=== PATIENT | female | born 1960 | race Caucasian/White ===

== ENCOUNTER 2018-11-25 19:16 | Inpatient (IN) | payer OTHER ==
[2018-11-25] MEDS ORDERED: Sodium Chloride 0.9% 1,000 ML IV STA (20:22)
[2018-11-25] MEDS ORDERED: Albuterol-Ipratrop 3 mg / 0.5 (3 ml) UD INH STA (20:30)
[2018-11-25] MEDS ORDERED: Magnesium Sulfate 2 gm/50 ml 2 GM/50 ML BAG IV STA (20:30)
[2018-11-25] MEDS ORDERED: Albuterol-Ipratrop 3 mg / 0.5 (3 ml) UD ONE (20:58)
[2018-11-25] MEDS ORDERED: Magnesium Sulfate 2 gm/50 ml 2 GM/50 ML BAG ONE (20:58)
[2018-11-25 21:09] LABS: VENOUS BLOOD GAS PCO2 67 mmHg (40-60); VENOUS BLOOD GAS PO2 32 mm/Hg (30-55); VENOUS BLOOD PH 7.27 (7.32-7.43)
[2018-11-25] MEDS ORDERED: Azithromycin 500 MG in Sodium Chloride 0.9% 250 ML IVPB STA (21:20)
[2018-11-25] MEDS ORDERED: cefTRIAXone (Rocephin) 1 gm Inj ONE (21:31)
[2018-11-25 21:36] LABS: BASO % 0.2 % (0.0-2.0); HEMOGLOBIN 14.6 g/dL (12.0-16.0); LYMPH # 0.6 K/uL (1.0-4.3); LYMPH % 6.9 % (20.0-40.0); MEAN CELL VOLUME 96.7 fl (81.0-99.0); MEAN CORPUSCULAR HEMOGLOBIN 31.2 pg (27.0-31.0); MEAN CORPUSCULAR HGB CONC 32.3 g/dL (33.0-37.0); MEAN PLATELET VOLUME 9.3 fl (7.2-11.7); MONO # 0.6 K/uL (0.0-0.8); MONO % 7.6 % (0.0-10.0); NEUT # 7.3 K/uL (1.8-7.0); NEUT % 85.3 % (50.0-75.0); NRBC % 0.2 % (0.0-0.0); PLATELET COUNT 197 K/uL (130-400); RBC 4.69 Mil/uL (3.80-5.20); RED CELL DISTRIBUTION WIDTH 15.3 % (11.5-14.5); WHITE BLOOD COUNT 8.5 K/uL (4.8-10.8)
[2018-11-25 22:06] LABS: BLOOD UREA NITROGEN 14 mg/dl (7-17); CALCIUM 8.7 mg/dL (8.4-10.2); GFR NON-AFRICAN AMERICAN > 60
[2018-11-25 22:09] LABS: INR 2.5; PROTHROMBIN TIME 28.9 Seconds (9.8-13.1)
[2018-11-25 22:11] LABS: PARTIAL THROMBOPLASTIN TIME 46.1 Seconds (25.6-37.1)
[2018-11-25 22:15] LABS: ALB/GLOB RATIO 0.9 (1.0-2.1); ALBUMIN 4.2 g/dL (3.5-5.0); ALT/SGPT < 6 U/L (9-52); AST/SGOT 59 U/L (14-36)
--- NOTE | 2018-11-25 22:18 | ED PDOC ---
HPI: SOB/CHF/COPD Time Seen by Provider: 11/25/18 20:19 Chief Complaint (Nursing): Shortness Of Breath Chief Complaint (Provider): Shortness Of Breath History Per: Patient History/Exam Limitations: clinical condition Onset/Duration Of Symptoms: Days (x2 days) Current Symptoms Are (Timing): Still Present Associated Symptoms: Fever, Chills, Productive Cough Additional Complaint(s): Bety Solis is a 58 year old Persian female with a history of morbid obesity, vascular heart disease, HTN, possible COPD, and aortic valve replacement, presents with x2 days of fever, cough and shortness of breath. Patient reports that the symptoms got worse today prompting her to come to ED. She states her cough is productive with white phlegm, associated with fever and chills. Patient is taking Nyquil but has had no relief. PMD: Willie Oliveira [id number] Administrator: Alhaji Calvo V Past Medical History Reviewed: Historical Data, Nursing Documentation, Vital Signs Vital Signs: Last Vital Signs Temp 103.0 F H 11/25/18 20:03 Pulse 118 H 11/25/18 21:41 Resp 24 11/25/18 21:41 BP 138/65 11/25/18 21:41 Pulse Ox 100 11/25/18 21:41 - Medical History PMH: COPD (possible), HTN Other PMH: vascular heart disease; - Surgical History Other surgeries: gastric band; aortic valve replacement - Family History Family History: States: Unknown Family Hx - Social History Current smoker - smoking cessation education provided: Yes (x2 packs a day) - Home Medications Home Medications: Ambulatory Orders Medication Instructions Recorded Atorvastatin [Lipitor] 40 mg PO DAILY 11/25/18 Metoprolol Succinate [Toprol Xl] 50 mg PO DAILY 11/25/18 RX: Aspirin [Lo-Dose Aspirin EC] 1 tab PO DAILY 11/25/18 RX: Warfarin Sodium [Jantoven] 1 tab PO DAILY 11/25/18 - Allergies Allergies/Adverse Reactions: Allergies Allergy/AdvReac Type Severity Reaction Status Date / Time No Known Allergies Allergy Verified 11/25/18 20:03 Review of Systems ROS Statement: Except As Marked, All Systems Reviewed And Found Negative Constitutional: Positive for: Fever, Chills Respiratory: Positive for: Cough, Shortness of Breath, Other (white phlegm) Physical Exam - Reviewed Nursing Documentation Reviewed: Yes Vital Signs Reviewed: Yes - Physical Exam Appears: Positive for: Non-toxic, No Acute Distress Head Exam: Positive for: ATRAUMATIC, NORMOCEPHALIC Skin: Positive for: Normal Color, Warm, Dry Eye Exam: Positive for: EOMI, PERRL ENT: Positive for: Normal ENT Inspection Neck: Positive for: Normal, Painless ROM, Supple Cardiovascular/Chest: Positive for: JVD, Tachycardia Respiratory: Positive for: Rales (bilateral), Respiratory Distress (moderate respiratory distress), Other (intercostal retraction) Gastrointestinal/Abdominal: Positive for: Normal Exam, Soft. Negative for: Tenderness Back: Positive for: Normal Inspection. Negative for: L CVA Tenderness, R CVA Tenderness, Vertebral Tenderness Extremity: Positive for: Normal ROM. Negative for: Pedal Edema, Deformity, Swelling - Laboratory Results Result Diagrams: 11/25/18 21:00 11/25/18 21:40 Lab Results: pO2 32 mm/Hg (30-55) 11/25/18 20:59 VBG pH 7.27 (7.32-7.43) L 11/25/18 20:59 VBG pCO2 67 mmHg (40-60) H* 11/25/18 20:59 VBG HCO3 25.2 mmol/L 11/25/18 20:59 VBG Total CO2 32.9 mmol/L (22-28) H 11/25/18 20:59 VBG O2 Sat (Calc) 54.5 % (40-65) 11/25/18 20:59 VBG Base Excess 2.0 mmol/L (0.0-2.0) 11/25/18 20:59 VBG Potassium 4.4 mmol/L (3.6-5.2) 11/25/18 20:59 Sodium 136.0 mmol/L (132-148) 11/25/18 20:59 Chloride 102.0 mmol/L (98-107) 11/25/18 20:59 Glucose 113 mg/dL (65-105) H 11/25/18 20:59 Lactate 2.2 mmol/L (0.7-2.1) H 11/25/18 20:59 FiO2 32.0 % 11/25/18 20:59 Crit Value Called To nery Evans md 11/25/18 20:59 Crit Value Called By Denae aguilar 11/25/18 20:59 Crit Value Read Back Y 11/25/18 20:59 Blood Gas Notified Time 210811/25/18 20:59 PT 28.9 Seconds (9.8-13.1) H 11/25/18 21:55 INR 2.5 11/25/18 21:55 APTT 46.1 Seconds (25.6-37.1) H 11/25/18 21:55 - ECG O2 Sat by Pulse Oximetry: 100 (RA) Pulse Ox Interpretation: Normal - Critical Care Total Time (In Min): 60 Medical Decision Making Medical Decision Making: Time: 2020 Impression: 58 year old ugandan female with respiratory failure in setting of flu like symptoms as well as clinical CHF and COPD Plan: --EKG --VBG shock panel --CMP --Lact acid --B-type natriuretic peptide --Troponin I --Cbc with differential --PTT --PT --Influenza A B --Urinalysis --Chest x-ray --Tylenol 975 mg PO --Duoneb 9 ml INH --Magnesium sulfate 2 gm in 50 ml IV --Solu-medrol 125 mg IVP --Sodium chloride 1,000 ml --Tamiflu Cap 75 mg PO --Rocephin 1gm IV daily --Azithromycin 500MG/250ML NS --IV insertion --BIPAP procedure --Peak flow pre/post treatment 23:39 Labs reviewed significant for pro BNP as well as troponin. Patient is also flu positive. Patient shows improvement on BIPAP. Aspirin, Lovenox, and NTG ordered. Patient's CXR demonstrates bilateral infiltrate and pulmonary vascular congestion. Will treat for pneumonia and sepsis in setting of flu. Patient's c ase discussed with Dr. Cornejo and Dr. Smith. Patient diagnosis is NSTEMI vs Myocarditis, CHF, respiratory failure, pneumonia, influenza, and sepsis. Condition is guarded. Patient will be admitted to ICU. Scribe Attestation: Documented by Link Curry, acting as a scribe for Nery Carter MD. Provider Scribe Attestation: All medical record entries made by the Scribe were at my direction and personally dictated by me. I have reviewed the chart and agree that the record accurately reflects my personal performance of the history, physical exam, medical decision making, and the department course for this patient. I have also personally directed, reviewed, and agree with the discharge instructions and disposition. Disposition - Clinical Impression Clinical Impression: NSTEMI (non-ST elevated myocardial infarction), CHF exacerbation, History of aortic valve replacement, Respiratory distress - Patient ED Disposition Is Patient to be Admitted: Yes - Disposition Disposition Time: 23:39 Condition: GUARDED
[2018-11-25] MEDS ORDERED: Nitroglycerin 2% 15 INCH/30 GM TUBE TOP STA (22:24)
[2018-11-25] MEDS ORDERED: Enoxaparin 80 mg Syringe SC STA (22:24)
[2018-11-25 22:26] LABS: TROPONIN I 0.52 ng/mL (0.00-0.120)
[2018-11-25] MEDS ORDERED: Albuterol-Ipratrop 3 mg / 0.5 (3 ml) UD INH PRN (22:26)
[2018-11-25] MEDS ORDERED: Nitroglycerin 2% Ointment Foilpak UD TOP ONE (22:29)
[2018-11-25] MEDS ORDERED: Nitroglycerin 2% Ointment Foilpak UD TOP STA (22:35)
[2018-11-25] MEDS ORDERED: Enoxaparin 120 mg Syringe SC STA (22:41)
[2018-11-25 22:48] LABS: BANDS 2 % (0-2); LYMPHOCYTE 6 % (20-50); MONOCYTE 8 % (0-10); MYELOCYTE 1 % (0-0); NEUTROPHIL 83 % (42-75); TOTAL CELLS COUNTED 100
[2018-11-25 22:49] LABS: ANISOCYTOSIS SLIGHT; PLATELET ESTIMATE NORMAL (NORMAL)
--- NOTE | 2018-11-25 23:40 | CP.PCM.CON ---
History of Present Illness - History of Present Illness History of Present Illness: CC/Reason for ICU: Respiratory failure HPI: This is a 58 y/o female with MHx sig for morbid obesity, AVR (on coumadin), CHF, CAD, HTN and possible COPD who comes in with 2 days of fever (measured up to 103 in ER), cough with clear sputum and SOB. Per son, symptoms got significantly worse today, prompting her to come in. Patient/family denies n/v/d. Denies chest pain/pressure. Patient has tried OTC medications with minimal relief. Patient not able to provide much other history given her current difficulty breathing. ROS: Patient unable MHx: Morbid obesity, AVR (on coumadin), CHF, CAD, HTN and possible COPD SHx: Gastric bypass, AVR Allergies: NKDA Medications: per med rec; on coumadin Social Hx: Lives at home, 2 PPM smoker currently, 1-2 PPD for many years, no EtOH Family Hx: Patient unable to provide at this time Surrogate Dec Mkr: Son, Tanisha, contact info on chart Past Patient History - Past Social History Smoking Status: Heavy Smoker > 10 Cigarettes Daily - CARDIAC Hx Hypertension: Yes - PULMONARY Hx Chronic Obstructive Pulmonary Disease (COPD): Yes (possible) - PSYCHIATRIC Hx Substance Use: No - SURGICAL HISTORY Hx Gastric Bypass Surgery: Yes Hx Valve Replacement: Yes Meds Allergies/Adverse Reactions: Allergies Allergy/AdvReac Type Severity Reaction Status Date / Time No Known Allergies Allergy Verified 11/25/18 20:03 - Medications Medications: Current Medications Acetaminophen (Tylenol 325mg Tab) 650 mg PO Q6H PRN PRN Reason: Pain (1-10) Acetaminophen (Tylenol 325mg Tab) 650 mg PO Q6H PRN PRN Reason: Fever >100.4 F Albuterol/Ipratropium (Duoneb 3 Mg/0.5 Mg (3 Ml) Ud) 3 ml INH RQ6 PRN PRN Reason: Shortness of Breath Albuterol/Ipratropium (Duoneb 3 Mg/0.5 Mg (3 Ml) Ud) 3 ml INH RQID PINKY Aspirin (Ecotrin) 325 mg PO DAILY [facility] Atorvastatin Calcium (Lipitor) 40 mg PO DAILY [facility] Enoxaparin Sodium (Lovenox) 120 mg SC Q12H PINKY; Protocol Furosemide (Lasix) 40 mg IVP DAILY IPNKY Azithromycin 500 mg/ Sodium (Chloride) 250 mls @ 250 mls/hr IVPB DAILY PINKY; Protocol Ceftriaxone Sodium 1 gm/ (Sodium Chloride) 100 mls @ 100 mls/hr IVPB DAILY PINKY; Protocol Metoprolol Succinate (Toprol Xl) 50 mg PO DAILY PINK[facility] Oseltamivir Phosphate (Tamiflu Cap) 75 mg PO DAILY PINKY; Protocol Pantoprazole Sodium (Protonix Ec Tab) 40 mg PO DAILY PINKY Physical Exam - Constitutional Appears: No Acute Distress - Head Exam Head Exam: ATRAUMATIC, NORMOCEPHALIC - Eye Exam Eye Exam: EOMI, PERRL - ENT Exam ENT Exam: Mucous Membranes Moist - Neck Exam Neck exam: Positive for: Full Rom - Respiratory Exam Respiratory Exam: Rhonchi, Wheezes - Cardiovascular Exam Cardiovascular Exam: Tachycardia, +S1, +S2 Additional comments: distant heart sounds, difficult to discern valve - GI/Abdominal Exam GI & Abdominal Exam: Normal Bowel Sounds, Soft - Extremities Exam Extremities exam: Positive for: full ROM, pedal edema - Neurological Exam Neurological exam: Alert, Oriented x3 Additional comments: Patient awake and rousable, but limited exam due to being on Bipap and SOB - Skin Skin Exam: Dry, Warm Results - Vital Signs Recent Vital Signs: Last Vital Signs Temp 100.8 F H 11/25/18 22:00 Pulse 106 H 11/25/18 22:37 Resp 30 H 11/25/18 22:38 BP 136/65 11/25/18 23:36 Pulse Ox 100 11/25/18 22:37 - Labs Result Diagrams: 11/25/18 21:00 11/25/18 21:40 Labs: Laboratory Results - last 24 hr 11/25/18 11/25/18 11/25/18 20:59 21:00 21:00 WBC 8.5 RBC 4.69 Hgb 14.6 Hct 45.4 MCV 96.7 MCH 31.2 H MCHC 32.3 L RDW 15.3 H Plt Count 197 MPV 9.3 Neut % (Auto) 85.3 H Lymph % (Auto) 6.9 L [place] % (Auto) 7.6 Eos % (Auto) 0.0 Baso % (Auto) 0.2 Neut # (Auto) 7.3 H Lymph # (Auto) 0.6 L [place] # (Auto) 0.6 Eos # (Auto) 0.0 Baso # (Auto) 0.0 Neutrophils % (Manual) 83 H Band Neutrophils % 2 Lymphocytes % (Manual) 6 L Monocytes % (Manual) 8 Myelocytes % 1 H Platelet Estimate Normal Anisocytosis (manual) Slight PT INR APTT pO2 32 VBG pH 7.27 L VBG pCO2 67 H* VBG HCO3 25.2 VBG Total CO2 32.9 H VBG O2 Sat (Calc) 54.5 VBG Base Excess 2.0 VBG Potassium 4.4 Sodium 136.0 Chloride 102.0 Glucose 113 H Lactate 2.2 H FiO2 32.0 Crit Value Called To nery Evans md Crit Value Called By Denae aguilar Crit Value Read Back Y Blood Gas Notified Time 2108 Potassium Carbon Dioxide Anion Gap BUN Creatinine Est GFR ( Amer) Est GFR (Non-Af Amer) Random Glucose Calcium Total Bilirubin AST ALT Alkaline Phosphatase Troponin I NT-Pro-B Natriuret Pep Total Protein Albumin Globulin Albumin/Globulin Ratio Venous Blood Potassium 4.4 Influenza Typ A,B (EIA) Pos for influenza a H 11/25/18 11/25/18 11/25/18 21:40 21:55 21:55 WBC RBC Hgb Hct MCV MCH MCHC RDW Plt Count MPV Neut % (Auto) Lymph % (Auto) [place] % (Auto) Eos % (Auto) Baso % (Auto) Neut # (Auto) Lymph # (Auto) [place] # (Auto) Eos # (Auto) Baso # (Auto) Neutrophils % (Manual) Band Neutrophils % Lymphocytes % (Manual) Monocytes % (Manual) Myelocytes % Platelet Estimate Anisocytosis (manual) PT 28.9 H INR 2.5 APTT 46.1 H pO2 VBG pH VBG pCO2 VBG HCO3 VBG Total CO2 VBG O2 Sat (Calc) VBG Base Excess VBG Potassium Sodium 137 Chloride 98 Glucose Lactate FiO2 Crit Value Called To Crit Value Called By Crit Value Read Back Blood Gas Notified Time Potassium 5.1 H Carbon Dioxide 27 Anion Gap 17 BUN 14 Creatinine 0.6 L Est GFR ( Amer) > 60 Est GFR (Non-Af Amer) > 60 Random Glucose 110 H Calcium 8.7 Total Bilirubin 1.3 AST 59 H ALT < 6 L Alkaline Phosphatase 105 Troponin I 0.5200 H* NT-Pro-B Natriuret Pep 1840 H Total Protein 8.7 H Albumin 4.2 Globulin 4.5 H Albumin/Globulin Ratio 0.9 L Venous Blood Potassium Influenza Typ A,B (EIA) - EKG Data EKG Interpreted by: Myself Rate: Tachycardia - EKG Data EKG comments: difficult to discern P waves, appears regular - Imaging and Cardiology Chest x-ray Status: Image reviewed by me (Vol o/l, infiltrate) Assessment & Plan (1) NSTEMI (non-ST elevated myocardial infarction) Assessment and Plan: 58 y/o female with multiple medical conditions being admited with acute hypoxic respiratory failure in setting CHF, possible COPD, CAP, and NSTEMI. -Admit ICU -Serial troponins, EKG in AM; Echo in AM -ASA 325; cont statin and b-jose roberto; patient is on 1 mg/kg SQ lovenox q12h for subtx (<=2.5) INR -Will need cardiology consult in AM -Lasix 40 mg IV daily for CHF -Duonebs, azithromycin/ceftriaxone for PNA/COPD; continue coverage with Tamiflu -On Lovenox 1 mg/kg BID Status: Acute (2) CHF exacerbation Status: Acute (3) CAP (community acquired pneumonia) Status: Acute (4) History of aortic valve replacement Status: Acute (5) DVT prophylaxis Status: Acute
[2018-11-26 05:29] LABS: ABG ALLEN TEST YES; ARTERIAL BLOOD GAS HCO3 25.2 mmol/L (21-28); ARTERIAL BLOOD GAS HEMOGLOBIN 14.5 g/dL (11.7-17.4); ARTERIAL BLOOD GAS O2 CAPACITY 19.6 mL/dL (16-24); ARTERIAL BLOOD GAS O2 CONTENT 18.2 ML/dL (15-23); ARTERIAL BLOOD GAS O2 SAT 92.9 % (95-98); ARTERIAL BLOOD GAS PCO2 88 mm/Hg (35-45); ARTERIAL BLOOD GAS PH 7.17 (7.35-7.45); ARTERIAL BLOOD GAS PO2 63 mm/Hg (80-100); ARTERIAL BLOOD GAS TCO2 34.8 mmol/L (22-28)
[2018-11-26 05:53] LABS: HEMOGLOBIN 14.3 g/dL (12.0-16.0); MEAN CELL VOLUME 95.7 fl (81.0-99.0); MEAN CORPUSCULAR HEMOGLOBIN 31.6 pg (27.0-31.0); RBC 4.52 Mil/uL (3.80-5.20); WHITE BLOOD COUNT 6.5 K/uL (4.8-10.8)
[2018-11-26 05:58] LABS: INR 2.5; PROTHROMBIN TIME 28.9 Seconds (9.8-13.1)
[2018-11-26 06:32] LABS: BLOOD UREA NITROGEN 15 mg/dl (7-17); CALCIUM 8.2 mg/dL (8.4-10.2); GFR NON-AFRICAN AMERICAN > 60
--- NOTE | 2018-11-26 06:37 | CARD ---
APPROVED REPORT Date of service: 11/25/2018 EKG Measurement Heart [id number] <Conclusion> Sinus tachycardia Low voltage QRS Cannot rule out Anteroseptal infarct, age undetermined Abnormal ECG
[2018-11-26 06:51] LABS: ABG ALLEN TEST YES; ARTERIAL BLOOD GAS HCO3 25.8 mmol/L (21-28); ARTERIAL BLOOD GAS HEMOGLOBIN 14.3 g/dL (11.7-17.4); ARTERIAL BLOOD GAS O2 CAPACITY 19.5 mL/dL (16-24); ARTERIAL BLOOD GAS O2 CONTENT 19.5 ML/dL (15-23); ARTERIAL BLOOD GAS PCO2 90 mm/Hg (35-45); ARTERIAL BLOOD GAS PH 7.17 (7.35-7.45); ARTERIAL BLOOD GAS PO2 135 mm/Hg (80-100); ARTERIAL BLOOD GAS TCO2 35.6 mmol/L (22-28)
[2018-11-26] MEDS ORDERED: PROPOFOL ONE (07:09)
[2018-11-26 07:11] LABS: SQUAMOUS EPITHIAL 1 /hpf (0-5); URINE BILIRUBIN NEGATIVE (NEGATIVE); URINE BLOOD LARGE (NEGATIVE); URINE CLARITY SLIGHTY-CLOUDY (Clear); URINE COLOR STRAW (YELLOW); URINE GLUCOSE (UA) NEG (NEGATIVE); URINE LEUKOCYTE ESTERASE NEG Leu/uL (Negative); URINE PROTEIN NEGATIVE (NEGATIVE); URINE UROBILINOGEN 0.2-1.0 mg/dL (0.2-1.0)
[2018-11-26] MEDS ORDERED: Propofol 10 mg/ml Inj (20 ML) IV ONE (07:16)
--- NOTE | 2018-11-26 07:29 | PCM.ANES ---
Anesthesia Emergent Intubation - Diagnosis Working Diagnosis:: Hypercarbic respiratory failure - Consult Reason for Consult:: Emergency intubation - Intubation Attempts Previous Number of Intubation Attempts:: 0 - Pre-Intubation Vital Signs Blood Pressure: 137/78 Heart Rate: 97 Respiratory Rate: 16 O2 Sat: 91 FIO2: 100 Oxygen Delivery Method: BiPAP Level Of Consciousness: Drowsy, Lethargic Intubation Meds Given: Propofol - Airway Management Oropharyngeal Area Suctioned: Yes PreOxygenation: 100 Inhalation: No Rapid Sequence: No Cricoid Pressure: No Possible Aspiration: No - Method of Intubation Intubation Method: Oral ETT ETT Size: 7.5 Lipline@: 23 Easy: Yes Atramatic: Yes - Intubation Devices Damaris Blade Size Used: 3 Brian Forcepts Used: No Clymer Scope Used: No Fiber Optic Scope: No - Placement Confirmation Breath Sounds Present & Equal Bilaterally: Yes Gurgling Sounds Not Audible at Epigastrum: Yes Positive EtCO2: Yes Portable CXR: Yes (ordered by primary team) Recommendations: Ventilator, Chest X Ray, ABG - Post-Intubation Vital Signs Blood Pressure: 140/80 Heart Rate: 93 Respiratory Rate: 16 O2 Sat: 97 FIO2: 100
[2018-11-26] MEDS: Propofol 10 mg/ml 1,000 MG/100 ML VIAL IV SCH ×5 (07:30→20:47)
[2018-11-26] MEDS ORDERED: Albuterol-Ipratrop 3 mg / 0.5 (3 ml) UD INH SCH (08:00)
--- NOTE | 2018-11-26 08:09 | RAD ---
Date of service: 11/26/2018 HISTORY: intubation COMPARISON: 11/25/2018 FINDINGS: LUNGS: The pulmonary venous congestion and the left mid lung zone airspace opacity a re-noted. Currently the left mid lung zone opacity is more conspicuous-denser and interval less dense airspace opacity in the right upper lobe-is also noted. The endotracheal tube tip is at the entrance for/orifice of the right mainstem bronchus prior to starting this dictation this finding was called up to the ICU floor and directly discussed with the nurse, Octavia who is taking care this patient at approximately 8 o'clock a.m. on 11/26/2018 PLEURA: Costophrenic angles are clipped bilaterally impeding assessment for any small pleural effusions. No large pleural effusions are suggested. No pneumothorax noted. CARDIOVASCULAR: There is presence of aortic atherosclerotic calcification on x-ray. Cardiomegaly present and similar midline sternal wires present grossly intact. Pulmonary venous congestion present and probably slightly increased. OSSEOUS STRUCTURES: No significant abnormalities. VISUALIZED UPPER ABDOMEN: Midline sternotomy. OTHER FINDINGS: None. IMPRESSION: Endotracheal tube tip at orifice to right mainstem bronchus-recommend retraction of 2 to 3 cm-this was called up to the ICU and directly discussed with Octavia the nurse taking care the patient prior to this dictation. Cardiomegaly and pulmonary venous congestion-additional areas of confluent airspace opacity compatible with either infiltrates and/or coalescent areas of focal pulmonary edema. Other findings as above.
--- NOTE | 2018-11-26 08:35 | RAD ---
Date of service: 11/25/2018 HISTORY: chest pain COMPARISON: 06/14/2014 FINDINGS: LUNGS: Lung volumes within normal limits. Pulmonary venous congestion diffusely increased since prior exam. Additional patchy ill-defined airspace opacities suggested left mid lung zone and left lung base. Areas of coalescent pulmonary edema here with or without infiltrates are considerations. Diffuse interstitial pulmonary edema suspect. PLEURA: No significant pleural effusion identified, no pneumothorax apparent. CARDIOVASCULAR: There is presence of aortic atherosclerotic calcification on x-ray. Cardiomegaly-similar interval increased pulmonary venous congestion Midline sternotomy OSSEOUS STRUCTURES: Midline sternotomy. VISUALIZED UPPER ABDOMEN: Normal. OTHER FINDINGS: None. IMPRESSION: Interval increased pulmonary venous congestion. Additional interval faint patchy left basal opacity now present and left mid lung zone patchy opacity. These opacities are compatible with areas of greater focal pulmonary edema and/or infiltrates. Previously more denser opacity was perceived also in the left mid lung zone but slightly more inferior and left lateral position. Other findings as above.
[2018-11-26] MEDS ORDERED: Aspirin 325 mg EC Tablets PO SCH (09:00)
[2018-11-26] MEDS ORDERED: methylPREDNISolone 60 MG in Sodium Chloride 0.9% 50 ML IV SCH (09:00)
[2018-11-26 09:37] LABS: ABG ALLEN TEST YES; ARTERIAL BLOOD GAS HCO3 26.7 mmol/L (21-28); ARTERIAL BLOOD GAS HEMOGLOBIN 14.8 g/dL (11.7-17.4); ARTERIAL BLOOD GAS O2 CAPACITY 20.7 mL/dL (16-24); ARTERIAL BLOOD GAS O2 CONTENT 20.7 ML/dL (15-23); ARTERIAL BLOOD GAS O2 SAT 100.2 % (95-98); ARTERIAL BLOOD GAS PCO2 83 mm/Hg (35-45); ARTERIAL BLOOD GAS PH 7.21 (7.35-7.45); ARTERIAL BLOOD GAS PO2 249 mm/Hg (80-100); ARTERIAL BLOOD GAS TCO2 35.7 mmol/L (22-28)
[2018-11-26] MEDS ORDERED: Influenza Vaccine (5 YR UP)/PF 60 MCG/0.5 ML SYR IM ONE (10:00)
[2018-11-26] MEDS ORDERED: Pneumococcal 23-Valent Vaccine IM ONE (10:00)
--- NOTE | 2018-11-26 10:34 | CP.PCM.CON ---
History of Present Illness - History of Present Illness History of Present Illness: Asked to evaluate this 58 year old female cigarette smoker who was orally intubated and placed on mechanical ventilator earlier this morning. She presented to the emergency room with a 2 days history of fevers, cough and shortness of breath. The EMR is used to gather all information. Her cough was productive of whitish mucoid sputum and she was having chills at home as well. There was no history of chest pain or hemoptysis at home. Her chest x-ray on presentation was limited by body habitus, but did show apparent hazy/patchy infi ltrates in the lower lobes of both lungs. She did have fever of 103 degrees in the ER and was influenza A positive without leukocytosis. Chest x-ray post intubation shows improved aeration with patchy infiltrates present in the right upper lobe and left lower lobe. Arterial blood gas showed respiratory acidosis with hyper-oxygenation on mechanical support with 100% oxygen. Ventilator changes have been made by the slots manager present in the ICU. Past Patient History - Past Medical History & Family History Past Medical History?: Yes - Past Social History Smoking Status: Heavy Smoker > 10 Cigarettes Daily - CARDIAC Hx Congestive Heart Failure: Yes Hx Hypertension: Yes Other/Comment: AVR - PULMONARY Hx Chronic Obstructive Pulmonary Disease (COPD): Yes (possible) - NEUROLOGICAL Hx Neurological Disorder: No - HEENT Hx HEENT Problems: No - RENAL Hx Chronic Kidney Disease: No - ENDOCRINE/METABOLIC Hx Endocrine Disorders: No - HEMATOLOGICAL/ONCOLOGICAL Hx Blood Disorders: No Hx Human Immunodeficiency Virus (HIV): No - INTEGUMENTARY Hx Dermatological Problems: No - MUSCULOSKELETAL/RHEUMATOLOGICAL Hx Falls: No - GASTROINTESTINAL Hx Gastrointestinal Disorders: No Other/Comment: gastric bypass-gastric band. >morbid obesity - GENITOURINARY/GYNECOLOGICAL Hx Genitourinary Disorders: No - PSYCHIATRIC Hx Substance Use: No - SURGICAL HISTORY Hx Gastric Bypass Surgery: Yes Hx Valve Replacement: Yes (aortic) - ANESTHESIA Hx Anesthesia: Yes Hx Anesthesia Reactions: No Hx Malignant Hyperthermia: No Has any member of the family had a problem w/ anesthesia?: No Meds Allergies/Adverse Reactions: Allergies Allergy/AdvReac Type Severity Reaction Status Date / Time No Known Allergies Allergy Verified 11/25/18 20:03 - Medications Medications: Current Medications Acetaminophen (Tylenol 325mg Tab) 650 mg PO Q6H PRN PRN Reason: Pain (1-10) Acetaminophen (Tylenol 325mg Tab) 650 mg PO Q6H PRN PRN Reason: Fever >100.4 F Albuterol/Ipratropium (Duoneb 3 Mg/0.5 Mg (3 Ml) Ud) 3 ml INH RQ6 PRN PRN Reason: Shortness of Breath Albuterol/Ipratropium (Duoneb 3 Mg/0.5 Mg (3 Ml) Ud) 3 ml INH RQID PINKY Aspirin (Ecotrin) 325 mg PO DAILY PINKY Atorvastatin Calcium (Lipitor) 40 mg PO DAILY PINKY Enoxaparin Sodium (Lovenox) 120 mg SC Q12H PINKY; Protocol Furosemide (Lasix) 40 mg IVP DAILY PINKY Azithromycin 500 mg/ Sodium (Chloride) 250 mls @ 250 mls/hr IVPB DAILY PINKY; Protocol Ceftriaxone Sodium 1 gm/ (Sodium Chloride) 100 mls @ 100 mls/hr IVPB DAILY PINKY; Protocol Propofol (Diprivan) 1,000 mg in 100 mls @ 3.946 mls/hr IV .Q24H PINKY; Protocol Stop: 11/27/18 07:16 Last Admin: 11/26/18 09:50 Dose: 40 mcg/kg/min, 31.57 mls/hr Metoprolol Succinate (Toprol Xl) 50 mg PO DAILY PINKY Oseltamivir Phosphate (Tamiflu Cap) 75 mg PO DAILY PINKY; Protocol Pantoprazole Sodium (Protonix Ec Tab) 40 mg PO DAILY PIKNY Physical Exam - Additional Findings Additional findings: Obese female, orally intubated and mechanically ventilated. Not following any commands, spontaneously moving all extremities. Neck is supple and trachea is midline. No dependant edema of lower extremities, no cyanosis. All extremities are warm to touch, pulses are well felt. No dullness on palpation of the anterior chest wall. No subcut emphysema. Peak airways pressure 38cm, plateau pressure 36cm. Breath sounds diminished, but equally heard in both lungs. Inspiratory and expiratory wheezes and rhonchi are heard throughout both lungs. Unable to appreciate rales or bronchial breath sounds. Heart sounds are distant and difficult to hear. Abdomen is markedly obese with positive bowel sounds. Results - Vital Signs Recent Vital Signs: Last Vital Signs Temp 98.5 F 11/26/18 08:00 Pulse 82 11/26/18 08:00 Resp 12 11/26/18 08:00 BP 122/69 11/26/18 08:00 Pulse Ox 100 11/26/18 08:00 - Labs Result Diagrams: 11/27/18 04:40 11/27/18 04:40 Labs: Laboratory Results - last 24 hr 11/25/18 11/25/18 11/25/18 20:59 21:00 21:00 WBC 8.5 RBC 4.69 Hgb 14.6 Hct 45.4 MCV 96.7 MCH 31.2 H MCHC 32.3 L RDW 15.3 H Plt Count 197 MPV 9.3 Neut % (Auto) 85.3 H Lymph % (Auto) 6.9 L [place] % (Auto) 7.6 Eos % (Auto) 0.0 Baso % (Auto) 0.2 Neut # (Auto) 7.3 H Lymph # (Auto) 0.6 L [place] # (Auto) 0.6 Eos # (Auto) 0.0 Baso # (Auto) 0.0 Neutrophils % (Manual) 83 H Band Neutrophils % 2 Lymphocytes % (Manual) 6 L Monocytes % (Manual) 8 Myelocytes % 1 H Platelet Estimate Normal Anisocytosis (manual) Slight PT INR APTT pCO2 pO2 32 HCO3 ABG pH ABG Total CO2 ABG O2 Saturation ABG O2 Content ABG Base Excess ABG Hemoglobin ABG Carboxyhemoglobin POC ABG HHb (Measured) ABG Methemoglobin ABG O2 Capacity Juanito Test VBG pH 7.27 L VBG pCO2 67 H* VBG HCO3 25.2 VBG Total CO2 32.9 H VBG O2 Sat (Calc) 54.5 VBG Base Excess 2.0 VBG Potassium 4.4 A-a O2 Difference Hgb O2 Saturation Sodium 136.0 Chloride 102.0 Glucose 113 H Lactate 2.2 H Vent Mode Mechanical Rate FiO2 32.0 Inspiratory BiPAP Expiratory BiPAP Crit Value Called To nery Evans md Crit Value Called By [facility] Crit Value Read Back Y Blood Gas Notified Time 2108 Potassium Carbon Dioxide Anion Gap BUN Creatinine Est GFR ( Amer) Est GFR (Non-Af Amer) Random Glucose Lactic Acid Calcium Total Bilirubin AST ALT Alkaline Phosphatase Troponin I NT-Pro-B Natriuret Pep Total Protein Albumin Globulin Albumin/Globulin Ratio Venous Blood Potassium 4.4 Urine Color Urine Clarity Urine pH Ur Specific [place] Urine Protein Urine Glucose (UA) Urine Ketones Urine Blood Urine Nitrate Urine Bilirubin Urine Urobilinogen Ur Leukocyte Esterase Urine RBC (Auto) Urine Microscopic WBC Ur Squamous Epith Cells Influenza Typ A,B (EIA) Pos for influenza a H 11/25/18 11/25/18 11/25/18 21:40 21:55 21:55 WBC RBC Hgb Hct MCV MCH MCHC RDW Plt Count MPV Neut % (Auto) Lymph % (Auto) [place] % (Auto) Eos % (Auto) Baso % (Auto) Neut # (Auto) Lymph # (Auto) [place] # (Auto) Eos # (Auto) Baso # (Auto) Neutrophils % (Manual) Band Neutrophils % Lymphocytes % (Manual) Monocytes % (Manual) Myelocytes % Platelet Estimate Anisocytosis (manual) PT 28.9 H INR 2.5 APTT 46.1 H pCO2 pO2 HCO3 ABG pH ABG Total CO2 ABG O2 Saturation ABG O2 Content ABG Base Excess ABG Hemoglobin ABG Carboxyhemoglobin POC ABG HHb (Measured) ABG Methemoglobin ABG O2 Capacity Juanito Test VBG pH VBG pCO2 VBG HCO3 VBG Total CO2 VBG O2 Sat (Calc) VBG Base Excess VBG Potassium A-a O2 Difference Hgb O2 Saturation Sodium 137 Chloride 98 Glucose Lactate Vent Mode Mechanical Rate FiO2 Inspiratory BiPAP Expiratory BiPAP Crit Value Called To Crit Value Called By Crit Value Read Back Blood Gas Notified Time Potassium 5.1 H Carbon Dioxide 27 Anion Gap 17 BUN 14 Creatinine 0.6 L Est GFR ( Amer) > 60 Est GFR (Non-Af Amer) > 60 Random Glucose 110 H Lactic Acid Calcium 8.7 Total Bilirubin 1.3 AST 59 H ALT < 6 L Alkaline Phosphatase 105 Troponin I 0.5200 H* NT-Pro-B Natriuret Pep 1840 H Total Protein 8.7 H Albumin 4.2 Globulin 4.5 H Albumin/Globulin Ratio 0.9 L Venous Blood Potassium Urine Color Urine Clarity Urine pH Ur Specific [place] Urine Protein Urine Glucose (UA) Urine Ketones Urine Blood Urine Nitrate Urine Bilirubin Urine Urobilinogen Ur Leukocyte Esterase Urine RBC (Auto) Urine Microscopic WBC Ur Squamous Epith Cells Influenza Typ A,B (EIA) 11/26/18 11/26/18 11/26/18 04:55 04:55 04:55 WBC RBC Hgb Hct MCV MCH MCHC RDW Plt Count MPV Neut % (Auto) Lymph % (Auto) [place] % (Auto) Eos % (Auto) Baso % (Auto) Neut # (Auto) Lymph # (Auto) [place] # (Auto) Eos # (Auto) Baso # (Auto) Neutrophils % (Manual) Band Neutrophils % Lymphocytes % (Manual) Monocytes % (Manual) Myelocytes % Platelet Estimate Anisocytosis (manual) PT 28.9 H INR 2.5 APTT pCO2 pO2 HCO3 ABG pH ABG Total CO2 ABG O2 Saturation ABG O2 Content ABG Base Excess ABG Hemoglobin ABG Carboxyhemoglobin POC ABG HHb (Measured) ABG Methemoglobin ABG O2 Capacity Juanito Test VBG pH VBG pCO2 VBG HCO3 VBG Total CO2 VBG O2 Sat (Calc) VBG Base Excess VBG Potassium A-a O2 Difference Hgb O2 Saturation Sodium 136 Chloride 99 Glucose Lactate Vent Mode Mechanical Rate FiO2 Inspiratory BiPAP Expiratory BiPAP Crit Value Called To Crit Value Called By Crit Value Read Back Blood Gas Notified Time Potassium 3.9 Carbon Dioxide 32 H Anion Gap 9 L BUN 15 Creatinine 0.8 Est GFR ( Amer) > 60 Est GFR (Non-Af Amer) > 60 Random Glucose 149 H Lactic Acid 0.8 Calcium 8.2 L Total Bilirubin AST ALT Alkaline Phosphatase Troponin I 2.7900 H* NT-Pro-B Natriuret Pep Total Protein Albumin Globulin Albumin/Globulin Ratio Venous Blood Potassium Urine Color Urine Clarity Urine pH Ur Specific [place] Urine Protein Urine Glucose (UA) Urine Ketones Urine Blood Urine Nitrate Urine Bilirubin Urine Urobilinogen Ur Leukocyte Esterase Urine RBC (Auto) Urine Microscopic WBC Ur Squamous Epith Cells Influenza Typ A,B (EIA) 11/26/18 11/26/18 11/26/18 05:21 05:36 06:44 WBC 6.5 RBC 4.52 Hgb 14.3 Hct 43.2 MCV 95.7 MCH 31.6 H MCHC 33.0 RDW 15.0 H Plt Count 153 MPV Neut % (Auto) Lymph % (Auto) [place] % (Auto) Eos % (Auto) Baso % (Auto) Neut # (Auto) Lymph # (Auto) [place] # (Auto) Eos # (Auto) Baso # (Auto) Neutrophils % (Manual) Band Neutrophils % Lymphocytes % (Manual) Monocytes % (Manual) Myelocytes % Platelet Estimate Anisocytosis (manual) PT INR APTT pCO2 88 H* 90 H* pO2 63 L 135 H HCO3 25.2 25.8 ABG pH 7.17 L* 7.17 L* ABG Total CO2 34.8 H 35.6 H ABG O2 Saturation 92.9 L 100.0 H ABG O2 Content 18.2 19.5 ABG Base Excess 0.6 1.2 ABG Hemoglobin 14.5 14.3 ABG Carboxyhemoglobin 2.7 H 2.5 H POC ABG HHb (Measured) 6.8 H 0.0 ABG Methemoglobin 1.2 1.3 ABG O2 Capacity 19.6 19.5 Juanito Test Yes Yes VBG pH VBG pCO2 VBG HCO3 VBG Total CO2 VBG O2 Sat (Calc) VBG Base Excess VBG Potassium A-a O2 Difference 184.0 323.0 Hgb O2 Saturation 89.3 L 96.1 Sodium Chloride Glucose Lactate Vent Mode Vm Bipap Mechanical Rate 14 FiO2 50.0 80.0 Inspiratory BiPAP 12 Expiratory BiPAP 6 Crit Value Called To Clotilde medel md Crit Value Called By 333 333 Crit Value Read Back Y Y Blood Gas Notified Time 528 651 Potassium Carbon Dioxide Anion Gap BUN Creatinine Est GFR ( Amer) Est GFR (Non-Af Amer) Random Glucose Lactic Acid Calcium Total Bilirubin AST ALT Alkaline Phosphatase Troponin I NT-Pro-B Natriuret Pep Total Protein Albumin Globulin Albumin/Globulin Ratio Venous Blood Potassium Urine Color Urine Clarity Urine pH Ur Specific [place] Urine Protein Urine Glucose (UA) Urine Ketones Urine Blood Urine Nitrate Urine Bilirubin Urine Urobilinogen Ur Leukocyte Esterase Urine RBC (Auto) Urine Microscopic WBC Ur Squamous Epith Cells Influenza Typ A,B (EIA) 11/26/18 11/26/18 06:45 09:30 WBC RBC Hgb Hct MCV MCH MCHC RDW Plt Count MPV Neut % (Auto) Lymph % (Auto) [place] % (Auto) Eos % (Auto) Baso % (Auto) Neut # (Auto) Lymph # (Auto) [place] # (Auto) Eos # (Auto) Baso # (Auto) Neutrophils % (Manual) Band Neutrophils % Lymphocytes % (Manual) Monocytes % (Manual) Myelocytes % Platelet Estimate Anisocytosis (manual) PT INR APTT pCO2 83 H* pO2 249 H HCO3 26.7 ABG pH 7.21 L ABG Total CO2 35.7 H ABG O2 Saturation 100.2 H ABG O2 Content 20.7 ABG Base Excess 2.3 ABG Hemoglobin 14.8 ABG Carboxyhemoglobin 2.0 H POC ABG HHb (Measured) -0.2 L ABG Methemoglobin 1.3 ABG O2 Capacity 20.7 Juanito Test Yes VBG pH VBG pCO2 VBG HCO3 VBG Total CO2 VBG O2 Sat (Calc) VBG Base Excess VBG Potassium A-a O2 Difference 360.0 Hgb O2 Saturation 97.0 Sodium Chloride Glucose Lactate Vent Mode Mechanical Rate FiO2 100.0 Inspiratory BiPAP Expiratory BiPAP Crit Value Called To Dr. cong morgan Crit Value Called By 23 Crit Value Read Back Y Blood Gas Notified Time 935 Potassium Carbon Dioxide Anion Gap BUN Creatinine Est GFR ( Amer) Est GFR (Non-Af Amer) Random Glucose Lactic Acid Calcium Total Bilirubin AST ALT Alkaline Phosphatase Troponin I NT-Pro-B Natriuret Pep Total Protein Albumin Globulin Albumin/Globulin Ratio Venous Blood Potassium Urine Color Straw Urine Clarity Slighty-cloudy Urine pH 5.0 Ur Specific [place] < 1.005 Urine Protein Negative Urine Glucose (UA) Neg Urine Ketones Negative Urine Blood Large Urine Nitrate Negative Urine Bilirubin Negative Urine Urobilinogen 0.2-1.0 Ur Leukocyte Esterase Neg Urine RBC (Auto) 2 Urine Microscopic WBC 1 Ur Squamous Epith Cells 1 Influenza Typ A,B (EIA) Assessment & Plan (1) Respiratory failure with hypoxia and hypercapnia Status: Acute Priority: High (2) Influenza A Status: Acute Priority: High (3) Pneumonia and influenza Status: Acute Priority: High (4) Morbid obesity Status: Chronic Priority: High (5) COPD (chronic obstructive pulmonary disease) Status: Suspected Priority: High - Assessment and Plan (Free Text) Plan: Clinical and radiographic findings have been reviewed and discussed with the slots manager. Ventilator changes will be made based on current clinical situation. Monitor chest x-ray daily while intubated. Suction sputum for culture and sensitivity to micro lab. Agree with present medical management. - Date & Time Date: 11/26/18 Time: 10:53
[2018-11-26] MEDS ORDERED: Chlorhexidine Gluconate 1 APPL/PKT TP ONE (10:49)
--- NOTE | 2018-11-26 11:12 | CP.CCUPN ---
CCU Subjective - Physician Review Subjective (Free Text): Recent events reviewed and discussed with overnight Precipitator Supervisor, PMD and Pulm: required MV support, intubated by Anesthesiologist for lethargy and hypercarbia in the presence of new NSTEMI. Presently sedated on Propofol and morphine. Breathing 18 on AC mode, rate adjusted to 22 to help ventilate CO2 as per recent ABG showing PCO2 level of 83 from 90. Duonebs ordered Q4H for now and IV steroids ongoing. Afebrile, no fever spikes overnight, SBP 130s HR 80s Soo2 99% on 50% (reduced from 100% oxygen post intubation). ROS: No other pertinent negs or positives on 10+ system review- unobtainable due to sedation PMSFH: All other Nursing and physician documentation reviewed to date; no new pertinent info noted relevant to current medical problems. EXAM- HEENT: no icterus, no gaze preference NECK: No JVD visible given short neck and overall obesity, supple, carotids equal upstroke bilat/no bruit CHEST: decreased BS at the bases, especially R base; few wheezes audible bilaterally. HEART: regular, distant, S1S2, no rubs or murmurs noted ABD: soft and obese, nontender, no guarding, no organomegaly, BS hypoactive. EXT: no leg edema, no calf tenderness or palpable cords, distal pulses intact and symmetrical. NEURO: sedated, + tone in all extremities. SKIN: no rashes, warm and dry LABS: WBC= 6.5 HGB= 14.3 PLTs= 153K INR = 2.5 7.21/83/249 post intubation. Na= 136 K= 3.9 CL= 99 HCO3= 32 BUN/Cr= 15/0.8 BS= 149 CXR: (my interp)- ETT low near tomas, pulm vasc congestion pattern, possible basilar infiltrates too (my interp). EKG: sinus 96/min, ST changes in II, III, F, and poor R progression anteriorly (my interp). IMPRESSION / MAJOR PROBLEMS NOW: 1. Acute hypercarbic resp failure 2 COPD Exacerbation, NSTEMI with Acute Pulm Edema 2. Influenza Viral resp infection, r/o superimposed bilateral bacterial PNA 3. s/p AVR on warfarin 4. Morbid obesity PLAN: 1. MV support, watch for post hypercapneic resp alkalosis, sputum Cx, serial ABGs, ETT re-positioned, sedation to prevent self-extubation. Empiric abx and antiviral coverage started in ER. 2. Lovenox Q12H, ASA, Statin, BBs via NGT/OGT, ECHO; Cardio eval for appropriateness of coronary imaging. 3. Duonebs Q4h, IV steroids. CT chest if basilar interstitial findings do not resolve after attempts at diuresis. 4. Nicotine patch 5. Maintain full AC with warfarin, INR goal 3.0. 6. Needs PICC line access. Time spent with this patient did not overlap with any other provider's medical or critical care time. Additionally the code selected for the services rendered in this note includes the time spent: talking to the patients family, associated physicians and reviewing hospital data/results not listed here which extended to a total of 40 minutes of critical care.
--- NOTE | 2018-11-26 11:22 | CP.PCM.HP ---
History of Present Illness - History of Present Illness History of Present Illness: Patient is a 58 year old female with a history of morbid obesity, vascular heart disease, HTN, possible COPD, and aortic valve replacement, presents with x2 days of fever, cough and shortness of breath still smoke 2 packs per day. In ER she presented with severe SOB not controlled with the support of the Bipap and elevated troponin levels. She was admitted in ICU and eventually she was intubated. At present sedated on ventilator support. The severity of her condition was discussed with the family and the avionics mechanic. Present on Admission - Present on Admission Any Indicators Present on Admission: No Review of Systems - Review of Systems Systems not reviewed;Unavailable: Intubated - Constitutional Constitutional: As Per HPI - EENT Eyes: As Per HPI - Cardiovascular Cardiovascular: As Per HPI - Respiratory Respiratory: As Per HPI - Gastrointestinal Gastrointestinal: As Per HPI - Musculoskeletal Musculoskeletal: As Per HPI - Integumentary Integumentary: As Per HPI - Neurological Neurological: As Per HPI - Psychiatric Psychiatric: As Per HPI - Endocrine Endocrine: As Per HPI Past Patient History - Past Medical History & Family History Past Medical History?: Yes - Past Social History Smoking Status: Heavy Smoker > 10 Cigarettes Daily - CARDIAC Hx Congestive Heart Failure: Yes Hx Hypertension: Yes Other/Comment: AVR - PULMONARY Hx Chronic Obstructive Pulmonary Disease (COPD): Yes (possible) - NEUROLOGICAL Hx Neurological Disorder: No - HEENT Hx HEENT Problems: No - RENAL Hx Chronic Kidney Disease: No - ENDOCRINE/METABOLIC Hx Endocrine Disorders: No - HEMATOLOGICAL/ONCOLOGICAL Hx Blood Disorders: No Hx Human Immunodeficiency Virus (HIV): No - INTEGUMENTARY Hx Dermatological Problems: No - MUSCULOSKELETAL/RHEUMATOLOGICAL Hx Falls: No - GASTROINTESTINAL Hx Gastrointestinal Disorders: No Other/Comment: gastric bypass-gastric band. >morbid obesity - GENITOURINARY/GYNECOLOGICAL Hx Genitourinary Disorders: No - PSYCHIATRIC Hx Substance Use: No - SURGICAL HISTORY Hx Gastric Bypass Surgery: Yes Hx Valve Replacement: Yes (aortic) - ANESTHESIA Hx Anesthesia: Yes Hx Anesthesia Reactions: No Hx Malignant Hyperthermia: No Has any member of the family had a problem w/ anesthesia?: No Meds Allergies/Adverse Reactions: Allergies Allergy/AdvReac Type Severity Reaction Status Date / Time No Known Allergies Allergy Verified 11/25/18 20:03 Physical Exam - Constitutional Appears: Chronically Ill Additional comments: morbid obese, intubated and sedated. - Head Exam Head Exam: ATRAUMATIC, NORMAL INSPECTION, NORMOCEPHALIC - Eye Exam Eye Exam: Normal appearance - ENT Exam ENT Exam: Mucous Membranes Moist - Respiratory Exam Respiratory Exam: Rales, Rhonchi, Wheezes - Cardiovascular Exam Cardiovascular Exam: REGULAR RHYTHM, +S1, +S2 - GI/Abdominal Exam GI & Abdominal Exam: Normal Bowel Sounds - Extremities Exam Extremities exam: Positive for: normal inspection - Neurological Exam Additional comments: sedated - Psychiatric Exam Additional comments: sedated - Skin Skin Exam: Normal Color Results - Vital Signs Recent Vital Signs: Last Vital Signs Temp 98.5 F 11/26/18 08:00 Pulse 82 11/26/18 08:00 Resp 12 11/26/18 08:00 BP 122/69 11/26/18 08:00 Pulse Ox 100 11/26/18 08:00 - Labs Result Diagrams: 11/26/18 05:36 11/26/18 04:55 Labs: Laboratory Results - last 24 hr 11/25/18 11/25/18 11/25/18 20:59 21:00 21:00 WBC 8.5 RBC 4.69 Hgb 14.6 Hct 45.4 MCV 96.7 MCH 31.2 H MCHC 32.3 L RDW 15.3 H Plt Count 197 MPV 9.3 Neut % (Auto) 85.3 H Lymph % (Auto) 6.9 L [place] % (Auto) 7.6 Eos % (Auto) 0.0 Baso % (Auto) 0.2 Neut # (Auto) 7.3 H Lymph # (Auto) 0.6 L [place] # (Auto) 0.6 Eos # (Auto) 0.0 Baso # (Auto) 0.0 Neutrophils % (Manual) 83 H Band Neutrophils % 2 Lymphocytes % (Manual) 6 L Monocytes % (Manual) 8 Myelocytes % 1 H Platelet Estimate Normal Anisocytosis (manual) Slight PT INR APTT pCO2 pO2 32 HCO3 ABG pH ABG Total CO2 ABG O2 Saturation ABG O2 Content ABG Base Excess ABG Hemoglobin ABG Carboxyhemoglobin POC ABG HHb (Measured) ABG Methemoglobin ABG O2 Capacity Juanito Test VBG pH 7.27 L VBG pCO2 67 H* VBG HCO3 25.2 VBG Total CO2 32.9 H VBG O2 Sat (Calc) 54.5 VBG Base Excess 2.0 VBG Potassium 4.4 A-a O2 Difference Hgb O2 Saturation Sodium 136.0 Chloride 102.0 Glucose 113 H Lactate 2.2 H Vent Mode Mechanical Rate FiO2 32.0 Inspiratory BiPAP Expiratory BiPAP Crit Value Called To nery Evans md Crit Value Called By Denae aguilar Crit Value Read Back Y Blood Gas Notified Time 2108 Potassium Carbon Dioxide Anion Gap BUN Creatinine Est GFR ( Amer) Est GFR (Non-Af Amer) Random Glucose Lactic Acid Calcium Total Bilirubin AST ALT Alkaline Phosphatase Troponin I NT-Pro-B Natriuret Pep Total Protein Albumin Globulin Albumin/Globulin Ratio Venous Blood Potassium 4.4 Urine Color Urine Clarity Urine pH Ur Specific [place] Urine Protein Urine Glucose (UA) Urine Ketones Urine Blood Urine Nitrate Urine Bilirubin Urine Urobilinogen Ur Leukocyte Esterase Urine RBC (Auto) Urine Microscopic WBC Ur Squamous Epith Cells Influenza Typ A,B (EIA) Pos for influenza a H 11/25/18 11/25/18 11/25/18 21:40 21:55 21:55 WBC RBC Hgb Hct MCV MCH MCHC RDW Plt Count MPV Neut % (Auto) Lymph % (Auto) [place] % (Auto) Eos % (Auto) Baso % (Auto) Neut # (Auto) Lymph # (Auto) [place] # (Auto) Eos # (Auto) Baso # (Auto) Neutrophils % (Manual) Band Neutrophils % Lymphocytes % (Manual) Monocytes % (Manual) Myelocytes % Platelet Estimate Anisocytosis (manual) PT 28.9 H INR 2.5 APTT 46.1 H pCO2 pO2 HCO3 ABG pH ABG Total CO2 ABG O2 Saturation ABG O2 Content ABG Base Excess ABG Hemoglobin ABG Carboxyhemoglobin POC ABG HHb (Measured) ABG Methemoglobin ABG O2 Capacity Juanito Test VBG pH VBG pCO2 VBG HCO3 VBG Total CO2 VBG O2 Sat (Calc) VBG Base Excess VBG Potassium A-a O2 Difference Hgb O2 Saturation Sodium 137 Chloride 98 Glucose Lactate Vent Mode Mechanical Rate FiO2 Inspiratory BiPAP Expiratory BiPAP Crit Value Called To Crit Value Called By Crit Value Read Back Blood Gas Notified Time Potassium 5.1 H Carbon Dioxide 27 Anion Gap 17 BUN 14 Creatinine 0.6 L Est GFR ( Amer) > 60 Est GFR (Non-Af Amer) > 60 Random Glucose 110 H Lactic Acid Calcium 8.7 Total Bilirubin 1.3 AST 59 H ALT < 6 L Alkaline Phosphatase 105 Troponin I 0.5200 H* NT-Pro-B Natriuret Pep 1840 H Total Protein 8.7 H Albumin 4.2 Globulin 4.5 H Albumin/Globulin Ratio 0.9 L Venous Blood Potassium Urine Color Urine Clarity Urine pH Ur Specific [place] Urine Protein Urine Glucose (UA) Urine Ketones Urine Blood Urine Nitrate Urine Bilirubin Urine Urobilinogen Ur Leukocyte Esterase Urine RBC (Auto) Urine Microscopic WBC Ur Squamous Epith Cells Influenza Typ A,B (EIA) 11/26/18 11/26/18 11/26/18 04:55 04:55 04:55 WBC RBC Hgb Hct MCV MCH MCHC RDW Plt Count MPV Neut % (Auto) Lymph % (Auto) [place] % (Auto) Eos % (Auto) Baso % (Auto) Neut # (Auto) Lymph # (Auto) [place] # (Auto) Eos # (Auto) Baso # (Auto) Neutrophils % (Manual) Band Neutrophils % Lymphocytes % (Manual) Monocytes % (Manual) Myelocytes % Platelet Estimate Anisocytosis (manual) PT 28.9 H INR 2.5 APTT pCO2 pO2 HCO3 ABG pH ABG Total CO2 ABG O2 Saturation ABG O2 Content ABG Base Excess ABG Hemoglobin ABG Carboxyhemoglobin POC ABG HHb (Measured) ABG Methemoglobin ABG O2 Capacity Juanito Test VBG pH VBG pCO2 VBG HCO3 VBG Total CO2 VBG O2 Sat (Calc) VBG Base Excess VBG Potassium A-a O2 Difference Hgb O2 Saturation Sodium 136 Chloride 99 Glucose Lactate Vent Mode Mechanical Rate FiO2 Inspiratory BiPAP Expiratory BiPAP Crit Value Called To Crit Value Called By Crit Value Read Back Blood Gas Notified Time Potassium 3.9 Carbon Dioxide 32 H Anion Gap 9 L BUN 15 Creatinine 0.8 Est GFR ( Amer) > 60 Est GFR (Non-Af Amer) > 60 Random Glucose 149 H Lactic Acid 0.8 Calcium 8.2 L Total Bilirubin AST ALT Alkaline Phosphatase Troponin I 2.7900 H* NT-Pro-B Natriuret Pep Total Protein Albumin Globulin Albumin/Globulin Ratio Venous Blood Potassium Urine Color Urine Clarity Urine pH Ur Specific [place] Urine Protein Urine Glucose (UA) Urine Ketones Urine Blood Urine Nitrate Urine Bilirubin Urine Urobilinogen Ur Leukocyte Esterase Urine RBC (Auto) Urine Microscopic WBC Ur Squamous Epith Cells Influenza Typ A,B (EIA) 11/26/18 11/26/18 11/26/18 05:21 05:36 06:44 WBC 6.5 RBC 4.52 Hgb 14.3 Hct 43.2 MCV 95.7 MCH 31.6 H MCHC 33.0 RDW 15.0 H Plt Count 153 MPV Neut % (Auto) Lymph % (Auto) [place] % (Auto) Eos % (Auto) Baso % (Auto) Neut # (Auto) Lymph # (Auto) [place] # (Auto) Eos # (Auto) Baso # (Auto) Neutrophils % (Manual) Band Neutrophils % Lymphocytes % (Manual) Monocytes % (Manual) Myelocytes % Platelet Estimate Anisocytosis (manual) PT INR APTT pCO2 88 H* 90 H* pO2 63 L 135 H HCO3 25.2 25.8 ABG pH 7.17 L* 7.17 L* ABG Total CO2 34.8 H 35.6 H ABG O2 Saturation 92.9 L 100.0 H ABG O2 Content 18.2 19.5 ABG Base Excess 0.6 1.2 ABG Hemoglobin 14.5 14.3 ABG Carboxyhemoglobin 2.7 H 2.5 H POC ABG HHb (Measured) 6.8 H 0.0 ABG Methemoglobin 1.2 1.3 ABG O2 Capacity 19.6 19.5 Juanito Test Yes Yes VBG pH VBG pCO2 VBG HCO3 VBG Total CO2 VBG O2 Sat (Calc) VBG Base Excess VBG Potassium A-a O2 Difference 184.0 323.0 Hgb O2 Saturation 89.3 L 96.1 Sodium Chloride Glucose Lactate Vent Mode Vm Bipap Mechanical Rate 14 FiO2 50.0 80.0 Inspiratory BiPAP 12 Expiratory BiPAP 6 Crit Value Called To Clotilde medel md Crit Value Called By 333 333 Crit Value Read Back Y Y Blood Gas Notified Time 528 651 Potassium Carbon Dioxide Anion Gap BUN Creatinine Est GFR ( Amer) Est GFR (Non-Af Amer) Random Glucose Lactic Acid Calcium Total Bilirubin AST ALT Alkaline Phosphatase Troponin I NT-Pro-B Natriuret Pep Total Protein Albumin Globulin Albumin/Globulin Ratio Venous Blood Potassium Urine Color Urine Clarity Urine pH Ur Specific [place] Urine Protein Urine Glucose (UA) Urine Ketones Urine Blood Urine Nitrate Urine Bilirubin Urine Urobilinogen Ur Leukocyte Esterase Urine RBC (Auto) Urine Microscopic WBC Ur Squamous Epith Cells Influenza Typ A,B (EIA) 11/26/18 11/26/18 06:45 09:30 WBC RBC Hgb Hct MCV MCH MCHC RDW Plt Count MPV Neut % (Auto) Lymph % (Auto) [place] % (Auto) Eos % (Auto) Baso % (Auto) Neut # (Auto) Lymph # (Auto) [place] # (Auto) Eos # (Auto) Baso # (Auto) Neutrophils % (Manual) Band Neutrophils % Lymphocytes % (Manual) Monocytes % (Manual) Myelocytes % Platelet Estimate Anisocytosis (manual) PT INR APTT pCO2 83 H* pO2 249 H HCO3 26.7 ABG pH 7.21 L ABG Total CO2 35.7 H ABG O2 Saturation 100.2 H ABG O2 Content 20.7 ABG Base Excess 2.3 ABG Hemoglobin 14.8 ABG Carboxyhemoglobin 2.0 H POC ABG HHb (Measured) -0.2 L ABG Methemoglobin 1.3 ABG O2 Capacity 20.7 Juanito Test Yes VBG pH VBG pCO2 VBG HCO3 VBG Total CO2 VBG O2 Sat (Calc) VBG Base Excess VBG Potassium A-a O2 Difference 360.0 Hgb O2 Saturation 97.0 Sodium Chloride Glucose Lactate Vent Mode Mechanical Rate FiO2 100.0 Inspiratory BiPAP Expiratory BiPAP Crit Value Called To Dr. cong morgan Crit Value Called By 23 Crit Value Read Back Y Blood Gas Notified Time 935 Potassium Carbon Dioxide Anion Gap BUN Creatinine Est GFR ( Amer) Est GFR (Non-Af Amer) Random Glucose Lactic Acid Calcium Total Bilirubin AST ALT Alkaline Phosphatase Troponin I NT-Pro-B Natriuret Pep Total Protein Albumin Globulin Albumin/Globulin Ratio Venous Blood Potassium Urine Color Straw Urine Clarity Slighty-cloudy Urine pH 5.0 Ur Specific [place] < 1.005 Urine Protein Negative Urine Glucose (UA) Neg Urine Ketones Negative Urine Blood Large Urine Nitrate Negative Urine Bilirubin Negative Urine Urobilinogen 0.2-1.0 Ur Leukocyte Esterase Neg Urine RBC (Auto) 2 Urine Microscopic WBC 1 Ur Squamous Epith Cells 1 Influenza Typ A,B (EIA) Assessment & Plan (1) CAP (community acquired pneumonia) Status: Acute (2) CHF exacerbation Status: Acute (3) DVT prophylaxis Status: Acute (4) History of aortic valve replacement Status: Chronic (5) Influenza A Status: Acute Priority: High (6) NSTEMI (non-ST elevated myocardial infarction) Status: Acute (7) Pneumonia and influenza Status: Acute Priority: High (8) Respiratory distress Status: Acute (9) Respiratory failure with hypoxia and hypercapnia Status: Acute Priority: High (10) Morbid obesity Status: Chronic Priority: High (11) COPD (chronic obstructive pulmonary disease) Status: Suspected Priority: High (12) Myocardial ischemia Status: Acute - Assessment and Plan (Free Text) Plan: as per orders.
[2018-11-26] MEDS: Albuterol-Ipratrop 3 mg / 0.5 (3 ml) UD INH SCH ×4 (11:24→23:40)
[2018-11-26] MEDS: Pantoprazole 40 mg EC Tab PO SCH (11:41)
[2018-11-26] MEDS: Metoprolol Succinate 50 mg XL Tab PO SCH (11:41)
[2018-11-26] MEDS: Enoxaparin 120 mg Syringe SC SCH ×2 (11:43→23:58)
[2018-11-26 13:58] LABS: VENOUS BLOOD GAS BASE EXCESS 3.5 mmol/L (0.0-2.0); VENOUS BLOOD GAS PCO2 83 mmHg (40-60); VENOUS BLOOD GAS PO2 56 mm/Hg (30-55); VENOUS BLOOD PH 7.22 (7.32-7.43)
--- NOTE | 2018-11-26 14:31 | PCM.PROC ---
Procedures Attestation:: I certify that I have explained the specified Operation(s) or Procedure(s), risks, benefits and reasonable alternatives to the Patient and/or other person responsible. The opportunity was given to ask questions and all questions answered - Central Line Placement Right Internal Jugular Triple Lumen Catheter Aseptic technique was employed throughout the procedure: Full sterile barriers (mask, hair cover, sterile gown, sterile gloves), Full body sterile drape, Chlo raprep Antiseptic: 30 second prep for IJ or SC sites CVP Time Out Performed: Yes Pt. Placed on Pulse Ox Monitor: Yes Central Line Prep: Chlorhexidine-Alcohol Combination Local Anesthesia Used: Lidocaine 1% Ultrasound Used for Placement: No Central Line Lumen Inserted: triple Central Line Length: 16 cm Post Procedure: Sutured in Place, Good Blood Return, All Ports Aspirated, Flushed, Capped, Sterile Dressing Applied Secured by: Suture Post procedure dressing: Clear vapor permeable, Chlorhexidine disc (Biopatch) Post Procedure X-Ray: Yes Patient Tolerated Procedure: Well Immediate Complications: None Additional Comments: Informed written consent discussed with and obtained from patient's son: Good Solis. Post procedure CXR shows satisfactory placement of catheter tip in distal SVC, no PTX noted.
[2018-11-26] MEDS: Azithromycin 500 MG in Sodium Chloride 0.9% 250 ML IVPB SCH (14:59)
--- NOTE | 2018-11-26 15:39 | RAD ---
Date of service: 11/26/2018 HISTORY: post TLC: R IJ Vein COMPARISON: November 26, 2018 Time of the most recent examination: 07:28. FINDINGS: LUNGS: Stable pulmonary vascular congestion. PLEURA: No significant pleural effusion identified, no pneumothorax apparent. CARDIOVASCULAR: Stable cardiomegaly. Atherosclerotic calcifications identified primarily aortic arch. OSSEOUS STRUCTURES: No significant abnormalities. VISUALIZED UPPER ABDOMEN: Normal. OTHER FINDINGS: Venous access catheter in satisfactory position. No pneumothorax identified. Stable position of endotracheal tube and nasogastric tube. IMPRESSION: No adverse findings/no pneumothorax following TLC catheter placement via right internal jugular approach.
[2018-11-26 15:43] LABS: URINE BACTERIA RARE (<OCC); URINE BILIRUBIN NEGATIVE (NEGATIVE); URINE BLOOD MODERATE (NEGATIVE); URINE CLARITY CLOUDY (Clear); URINE COLOR YELLOW (YELLOW); URINE GLUCOSE (UA) NEG (NEGATIVE); URINE LEUKOCYTE ESTERASE NEG Leu/uL (Negative); URINE PROTEIN 30 mg/dL (NEGATIVE); URINE UROBILINOGEN 0.2-1.0 mg/dL (0.2-1.0)
[2018-11-26] MEDS: Proshield Plus GEL TOP SCH (17:36)
--- NOTE | 2018-11-26 20:43 | CARD ---
APPROVED REPORT Date of service: 11/26/2018 EKG Measurement Heart [id number] ID [id number] <Conclusion> Normal sinus rhythm Septal infarct, age undetermined Abnormal ECG
--- NOTE | 2018-11-26 21:12 | CARD ---
APPROVED REPORT Date of service: 11/26/2018 EXAM: Two-dimensional and M-mode echocardiogram with Doppler and color Doppler. Other Information Quality : FairRhythm : NSR Technically limited study due to body habitus.Only apical 4C views available. INDICATION Non STEMI Congestive Heart Failure Mitral Valve E/A ratio0.0 TDI E/Lateral E'0.0E/Medial E'0.0 LEFT VENTRICLE The left ventricle is not well visualized. Due to the poor quality of the echocardiogram, an assessment of left ventricular ejection fraction cannot be assessed. But likely has low normal LV function. Consider contrast for better assessment. LVEF is unable to be assessed due to poor endocardial visualization. Cannot be assessed. Transmitral Doppler flow pattern is Grade II-pseudonormal filling dynamics. RIGHT VENTRICLE Not well visualized. cannot be assessed. ATRIA cannot be assessed. cannot be assessed. AORTIC VALVE Not well visualized Cannot be assessed. Mildly elevated velocities, likely has atleast mild aortic stenosis. MITRAL VALVE cannot be assessed. None Minimal TRICUSPID VALVE cannot be assessed. cannot be assessed. PULMONIC VALVE cannot be assessed. cannot be assessed. GREAT VESSELS cannot be assessed. Not well visualized. PERICARDIAL EFFUSION The pericardium appears normal. <Conclusion> Due to the poor quality of the echocardiogram, an assessment of left ventricular ejection fraction cannot be assessed. But likely has low normal LV function. Consider contrast for better assessment. Transmitral Doppler flow pattern is Grade II-pseudonormal filling dynamics. Mildly elevated aortic valve velocities, likely has mild aortic stenosis.
[2018-11-26] MEDS: Piperacillin/Tazobact 3.375 GM in Sodium Chloride 0.9% 100 ML IVPB SCH (23:28)
[2018-11-26 23:34] LABS: VENOUS BLOOD GAS BASE EXCESS 6.4 mmol/L (0.0-2.0); VENOUS BLOOD GAS PCO2 48 mmHg (40-60); VENOUS BLOOD GAS PO2 36 mm/Hg (30-55); VENOUS BLOOD PH 7.43 (7.32-7.43)
[2018-11-27] MEDS: Proshield Plus GEL TOP SCH ×3 (00:04→17:08)
[2018-11-27] MEDS: Propofol 10 mg/ml 1,000 MG/100 ML VIAL IV SCH ×7 (00:07→22:17)
[2018-11-27] MEDS: Piperacillin/Tazobact 3.375 GM in Sodium Chloride 0.9% 100 ML IVPB SCH ×4 (03:58→21:48)
[2018-11-27] MEDS: Albuterol-Ipratrop 3 mg / 0.5 (3 ml) UD INH SCH ×5 (05:05→19:46)
[2018-11-27 05:39] LABS: MEAN CELL VOLUME 95.1 fl (81.0-99.0); MEAN CORPUSCULAR HEMOGLOBIN 31.1 pg (27.0-31.0); MEAN CORPUSCULAR HGB CONC 32.7 g/dL (33.0-37.0); RBC 4.19 Mil/uL (3.80-5.20); RED CELL DISTRIBUTION WIDTH 14.9 % (11.5-14.5); WHITE BLOOD COUNT 8.2 K/uL (4.8-10.8)
[2018-11-27 05:49] LABS: PARTIAL THROMBOPLASTIN TIME 61.9 Seconds (25.6-37.1)
[2018-11-27 05:56] LABS: ALB/GLOB RATIO 0.8 (1.0-2.1); ALBUMIN 2.9 g/dL (3.5-5.0); ALT/SGPT 39 U/L (9-52); AST/SGOT 62 U/L (14-36); BLOOD UREA NITROGEN 38 mg/dl (7-17); CALCIUM 7.9 mg/dL (8.4-10.2); GFR NON-AFRICAN AMERICAN 51
[2018-11-27 06:06] LABS: INR 3.5
[2018-11-27 06:11] LABS: ABG ALLEN TEST YES; ARTERIAL BLOOD GAS HCO3 27.4 mmol/L (21-28); ARTERIAL BLOOD GAS HEMOGLOBIN 18.2 g/dL (11.7-17.4); ARTERIAL BLOOD GAS O2 SAT 81.8 % (95-98); ARTERIAL BLOOD GAS PCO2 47 mm/Hg (35-45); ARTERIAL BLOOD GAS PH 7.41 (7.35-7.45); ARTERIAL BLOOD GAS PO2 40 mm/Hg (80-100); ARTERIAL BLOOD GAS TCO2 31.2 mmol/L (22-28)
[2018-11-27 06:13] LABS: VENOUS BLOOD GAS BASE EXCESS 4.4 mmol/L (0.0-2.0); VENOUS BLOOD GAS PCO2 43 mmHg (40-60); VENOUS BLOOD GAS PO2 85 mm/Hg (30-55); VENOUS BLOOD PH 7.44 (7.32-7.43)
--- NOTE | 2018-11-27 07:47 | RAD ---
Date of service: 11/27/2018 HISTORY: intubated COMPARISON: Portable chest 11/26/2018. FINDINGS: LUNGS: Endotracheal tube and right central venous line do not appear significantly changed in position. The tip of the nasogastric tube is obscured by lack of penetration distally. Moderate pulmonary vascular congestion pattern is not significantly changed in the interval. Left basilar patchy airspace disease stable. No pneumothorax bilaterally or pleural effusion. Prominent cardiac silhouette reiterated. PLEURA: As above. CARDIOVASCULAR: Calcific atherosclerotic changes are seen related to the thoracic aorta. As above. OSSEOUS STRUCTURES: Sternotomy wires reiterated. VISUALIZED UPPER ABDOMEN: Normal. OTHER FINDINGS: None. IMPRESSION: Stable moderate pulmonary vascular congestion and left basilar airspace disease. No significant interval change appreciated. Right center venous line and endotracheal tube unchanged in position with nasogastric tube placed with the tip is poorly characterized distally due to underpenetration.
[2018-11-27] MEDS: Pantoprazole 40 mg EC Tab PO SCH (08:15)
[2018-11-27] MEDS: Metoprolol Succinate 50 mg XL Tab PO SCH (08:21)
--- NOTE | 2018-11-27 08:42 | CP.CCUPN ---
CCU Subjective - Physician Review Subjective (Free Text): Sedated on Propofol, RASS neg 2-3, breathing 23 on AC 22, SPo2 96% on 50% oxygen. She is negative 1.25L fluid balance over last 24H. Febrile with low grade temps, Tmax 100.7F, SBP 120's, HR 90's. ROS: No other pertinent negs or positives on 10+ system review- unobtainable due to sedation PMSFH: All other Nursing and physician documentation reviewed to date; no new pertinent info noted relevant to current medical problems. EXAM- HEENT: no icterus, no gaze preference NECK: No JVD visible given short neck and overall obesity, supple, carotids equal upstroke bilat/no bruit CHEST: decreased BS at the bases, especially R base; few wheezes audible bilaterally. HEART: regular, distant, S1S2, no rubs or murmurs noted ABD: soft and obese, nontender, no guarding, no organomegaly, BS hypoactive. EXT: no leg edema, no calf tenderness or palpable cords, distal pulses intact and symmetrical. NEURO: sedated, + tone in all extremities. SKIN: no rashes, warm and dry LABS: WBC= 8.2 HGB= 13.0 PLTs= 165K INR = 3.5 7.41/47/40 81% sat'n on VBG. Lactate = 0.9 Na= 141 K= 3.7 CL= 105 HCO3= 22 BUN/Cr= 38/1.1 BS= 107 Trop peak at 2.4 CXR: (my interp)- ETT low near tomas, Poor tech film, R >> L basilar haziness/ possible infiltrates. IMPRESSION / MAJOR PROBLEMS NOW: 1. Acute hypercarbic resp failure 2 COPD Exacerbation, NSTEMI with Acute Pulm Edema 2. Influenza Viral resp infection, r/o superimposed bilateral bacterial PNA 3. s/p AVR on warfarin 4. Morbid obesity PLAN: 1. MV support, try decreasing FiO2, will increase PEEP to 7 today. 2. ECHO, Cardio eval. Lasix prn. 3. Empiric abx coverage. 4. INR increased today to 3.5, no warfarin today. 5. PICC not done yesterday with INR at 2.5, TLC placed into R IJV. Time spent with this patient did not overlap with any other provider's medical or critical care time. Additionally the code selected for the services rendered in this note includes the time spent: talking to the patients family, associated physicians and reviewing hospital data/results not listed here which extended to a total of 30 minutes of critical care.
[2018-11-27] MEDS: Azithromycin 500 MG in Sodium Chloride 0.9% 250 ML IVPB SCH (11:00)
[2018-11-27] MEDS: Enoxaparin 120 mg Syringe SC SCH ×2 (11:08→22:19)
--- NOTE | 2018-11-27 13:25 | CP.PCM.PN ---
Subjective - Date & Time of Evaluation Date of Evaluation: 11/27/18 Time of Evaluation: 13:25 - Subjective Subjective: Patient intubated and sedated. Objective - Vital Signs/Intake and Output Vital Signs (last 24 hours): Temp Pulse Resp BP Pulse Ox 100.4 F H 95 H 22 122/73 96 11/27/18 13:14 11/27/18 13:00 11/27/18 13:00 11/27/18 13:00 11/27/18 13:00 Intake and Output: 11/27/18 11/27/18 11:59 23:59 Intake Total 1790 Output Total 1999 750 Balance -210 -750 - Medications Medications: Current Medications Acetaminophen (Tylenol 325mg Tab) 650 mg PO Q6H PRN PRN Reason: Pain (1-10) Acetaminophen (Tylenol 325mg Tab) 650 mg PO Q6H PRN PRN Reason: Fever >100.4 F Last Admin: 11/27/18 13:14 Dose: 650 mg Albuterol/Ipratropium (Duoneb 3 Mg/0.5 Mg (3 Ml) Ud) 3 ml INH RQ4 [facility] Last Admin: 11/27/18 11:11 Dose: 3 ml Aspirin (Aspirin) 325 mg GT DAILY [facility] Last Admin: 11/27/18 08:25 Dose: 325 mg Atorvastatin Calcium (Lipitor) 40 mg PO DAILY PINKY Last Admin: 11/27/18 08:20 Dose: 40 mg Dimethicone (Proshield Plus Skin Protectant) 1 applic TOP Q8 [facility] Last Admin: 11/27/18 08:11 Dose: 1 applic Enoxaparin Sodium (Lovenox) 120 mg SC Q12H [facility]; Protocol Last Admin: 11/27/18 11:08 Dose: 120 mg Furosemide (Lasix) 40 mg IVP DAILY [facility] Last Admin: 11/27/18 08:15 Dose: 40 mg Azithromycin 500 mg/ Sodium (Chloride) 250 mls @ 250 mls/hr IVPB DAILY [facility]; Protocol Last Admin: 11/27/18 11:00 Dose: 250 mls/hr Vancomycin HCl 1 gm/ Sodium (Chloride) 250 mls @ 166.667 mls/hr IVPB DAILY [facility]; Protocol Last Admin: 11/27/18 08:21 Dose: 166.667 mls/hr Piperacillin Sod/Tazobactam (Sod 3.375 gm/ Sodium Chloride) 100 mls @ 100 mls/hr IVPB Q6 [facility]; Protocol Last Admin: 11/27/18 11:01 Dose: 100 mls/hr Propofol (Diprivan) 1,000 mg in 100 mls @ 3.946 mls/hr IV .Q24H [facility]; Protocol Stop: 11/28/18 08:24 Last Admin: 11/27/18 12:02 Dose: 35 mcg/kg/min, 27.624 mls/hr Metoprolol Succinate (Toprol Xl) 50 mg PO DAILY [facility] Last Admin: 11/27/18 08:21 Dose: 50 mg Morphine Sulfate (Morphine) 4 mg IVP Q4 PRN PRN Reason: Agitation Last Admin: 11/26/18 14:08 Dose: 4 mg Nystatin (Nystop Topical Powder) 1 applic TOP TID [facility] Last Admin: 11/27/18 12:23 Dose: 1 applic Oseltamivir Phosphate (Tamiflu Cap) 75 mg PO BID [facility]; Protocol Last Admin: 11/27/18 08:12 Dose: 75 mg Pantoprazole Sodium (Protonix Ec Tab) 40 mg PO DAILY [facility] Last Admin: 11/27/18 08:15 Dose: 40 mg - Labs Labs: 11/27/18 04:40 11/27/18 04:40 PT 40.0 Seconds (9.8-13.1) H 11/27/18 04:40 INR 3.5 11/27/18 04:40 APTT 61.9 Seconds (25.6-37.1) H 11/27/18 04:40 - Constitutional Appears: Chronically Ill - Head Exam Head Exam: ATRAUMATIC, NORMAL INSPECTION, NORMOCEPHALIC - Neck Exam Neck Exam: Normal Inspection - Respiratory Exam Respiratory Exam: Rales, Rhonchi, Wheezes - Cardiovascular Exam Cardiovascular Exam: REGULAR RHYTHM, +S1, +S2 - GI/Abdominal Exam GI & Abdominal Exam: Soft - Extremities Exam Additional comments: No c/c/e - Neurological Exam Additional comments: sedated Assessment and Plan (1) CAP (community acquired pneumonia) Status: Acute (2) CHF exacerbation Status: Acute (3) DVT prophylaxis Status: Acute (4) History of aortic valve replacement Status: Chronic (5) Influenza A Status: Acute (6) NSTEMI (non-ST elevated myocardial infarction) Status: Acute (7) Pneumonia and influenza Status: Acute (8) Respiratory distress Status: Acute (9) Respiratory failure with hypoxia and hypercapnia Status: Acute (10) Morbid obesity Status: Chronic (11) COPD (chronic obstructive pulmonary disease) Status: Suspected (12) Myocardial ischemia Status: Acute - Assessment and Plan (Free Text) Plan: Continue present rx.
--- NOTE | 2018-11-27 13:30 | CP.PCM.PN ---
Subjective - Date & Time of Evaluation Date of Evaluation: 11/27/18 Time of Evaluation: 13:29 - Subjective Subjective: Seen on rounds in the intensive care unit. The patient remains orally intubated and mechanically ventilated, sedated. Continues to have febrile pattern. No leukocytosis or anemia. Platelets 165. Negative fluid balance 3.2 L. Troponins have been positive and cardiology has been consulted for non-STEMI. Antibiotic therapy for pneumonia in the form of the Zosyn and azithromycin. Inhalation treatments in the form of albuterol/ipratropium and diuretic in the form of Lasix 40 IV push daily. Therapeutic anticoagulation with enoxaparin 120 mg every 12 hours. Chest x-ray done this morning is difficult to interpret because of body habitus but grossly there appear to be patchy pneumonic infiltrates in the lower lobes of both lungs. Endotracheal tube is in place in the central venous catheter has been inserted. On physical exam she is sedated lying flat in bed and mechanically ventilated. Peak airway pressures are 37 cm and plateau pressures are 33. End-tidal CO2 is noted to be 15 and the respiratory rate has been reduced to 18 from 22. Oxygenation is 95% on pulse ox using 50% supplemental oxygen. Thin blood-tinged secretions are being suctioned and small quantity from the endotracheal tube. No dullness on percussion of the anterior thorax. No subcutaneous emphysema palpated. Breath sounds are diminished but present bilaterally, equally in both lungs. There are few high-pitched expiratory wheezes heard more on the left than the right. Few dry rales are heard in the lower lobes posteriorly. No bronchial breath sounds. Heart sounds are distant and the rhythm is regular. The abdomen is obese and bowel sounds are present. Trace dependent edema is noted in both eyes. All extremities are warm to touch. No cyanosis. Maintain oxygenation and acid base balance using mechanical ventilation. Continue current antibiotic regimen as well as oseltamivir. Awaiting sputum culture and sensitivity. Sedation as necessary while mechanically ventilated. Sedation vacation and weaning parameters are to be followed. We'll discuss further with culinary arts teacher. Follow cardiology recommendations. Objective - Vital Signs/Intake and Output Vital Signs (last 24 hours): Temp Pulse Resp BP Pulse Ox 100.4 F H 95 H 22 122/73 96 11/27/18 13:14 11/27/18 13:00 11/27/18 13:00 11/27/18 13:00 11/27/18 13:00 Intake and Output: 11/27/18 11/27/18 11:59 23:59 Intake Total 1790 Output Total 1999 750 Balance -210 -750 - Medications Medications: Current Medications Acetaminophen (Tylenol 325mg Tab) 650 mg PO Q6H PRN PRN Reason: Pain (1-10) Acetaminophen (Tylenol 325mg Tab) 650 mg PO Q6H PRN PRN Reason: Fever >100.4 F Last Admin: 11/27/18 13:14 Dose: 650 mg Albuterol/Ipratropium (Duoneb 3 Mg/0.5 Mg (3 Ml) Ud) 3 ml INH RQ4 [facility] Last Admin: 11/27/18 11:11 Dose: 3 ml Aspirin (Aspirin) 325 mg GT DAILY [facility] Last Admin: 11/27/18 08:25 Dose: 325 mg Atorvastatin Calcium (Lipitor) 40 mg PO DAILY [facility] Last Admin: 11/27/18 08:20 Dose: 40 mg Dimethicone (Proshield Plus Skin Protectant) 1 applic TOP Q8 [facility] Last Admin: 11/27/18 08:11 Dose: 1 applic Enoxaparin Sodium (Lovenox) 120 mg SC Q12H [facility]; Protocol Last Admin: 11/27/18 11:08 Dose: 120 mg Furosemide (Lasix) 40 mg IVP DAILY [facility] Last Admin: 11/27/18 08:15 Dose: 40 mg Azithromycin 500 mg/ Sodium (Chloride) 250 mls @ 250 mls/hr IVPB DAILY [facility]; Protocol Last Admin: 11/27/18 11:00 Dose: 250 mls/hr Vancomycin HCl 1 gm/ Sodium (Chloride) 250 mls @ 166.667 mls/hr IVPB DAILY [facility]; Protocol Last Admin: 11/27/18 08:21 Dose: 166.667 mls/hr Piperacillin Sod/Tazobactam (Sod 3.375 gm/ Sodium Chloride) 100 mls @ 100 mls/hr IVPB Q6 [facility]; Protocol Last Admin: 11/27/18 11:01 Dose: 100 mls/hr Propofol (Diprivan) 1,000 mg in 100 mls @ 3.946 mls/hr IV .Q24H [facility]; Protocol Stop: 11/28/18 08:24 Last Admin: 11/27/18 12:02 Dose: 35 mcg/kg/min, 27.624 mls/hr Metoprolol Succinate (Toprol Xl) 50 mg PO DAILY [facility] Last Admin: 11/27/18 08:21 Dose: 50 mg Morphine Sulfate (Morphine) 4 mg IVP Q4 PRN PRN Reason: Agitation Last Admin: 11/26/18 14:08 Dose: 4 mg Nystatin (Nystop Topical Powder) 1 applic TOP TID [facility] Last Admin: 11/27/18 12:23 Dose: 1 applic Oseltamivir Phosphate (Tamiflu Cap) 75 mg PO BID [facility]; Protocol Last Admin: 11/27/18 08:12 Dose: 75 mg Pantoprazole Sodium (Protonix Ec Tab) 40 mg PO DAILY [facility] Last Admin: 11/27/18 08:15 Dose: 40 mg - Labs Labs: 11/27/18 04:40 11/27/18 04:40 PT 40.0 Seconds (9.8-13.1) H 11/27/18 04:40 INR 3.5 11/27/18 04:40 APTT 61.9 Seconds (25.6-37.1) H 11/27/18 04:40 Assessment and Plan (1) Respiratory failure with hypoxia and hypercapnia Status: Acute (2) Influenza A Status: Acute (3) Pneumonia and influenza Status: Acute (4) Morbid obesity Status: Chronic (5) COPD (chronic obstructive pulmonary disease) Status: Suspected
--- NOTE | 2018-11-27 16:24 | CP.PCM.CON ---
History of Present Illness - History of Present Illness History of Present Illness: Consultation for NSTEMI / respiratory failure / SOB HPI: 58-year-old female with past medical history significant for hypertension dy slipidemia coronary artery disease status post PCI aortic stenosis status post mechanical AVR on Coumadin who presented with complains of shortness of breath and possible COD of COPD accompanied with for episodes of fever noted in the emergency room at 103 cough with clear sputum for 2 days prior to presentation patient symptoms got progressively worse apparently she was trying [id number] medication with minimal relief. She patient was admitted to the ICU initially she was tried with BiPAP but continued to have worsening shortness of breath and subsequently required to be intubated. She had a right IJ triple-lumen catheter placed by Dr. Azul along with intubation yesterday for hyperacute hypercarbic respiratory failure and acute pulmonary edema. She had elevated troponins which peaked at 2.79 and then subsequently started to trend up to 2.41 she was somewhat on propofol somewhat sedated and drowsy an echocardiogram was ordered yesterday in the emergency room which showed her LV was not well as well visualized patient had low normal EF rest of the valves were unable to be by secondary to poor windows. Medical History: Past Medical History: Diagnosis Date CAD (coronary artery disease) Dyspnea on exertion Hyperlipidemia Hypertension PA (myocardial infarction) Obesity Other and unspecified angina pectoris Pneumonia 05/2014 Surgical History: Past Surgical History: Procedure Laterality Date CARDIAC CATHERIZATION 2011 CARDIAC VALVE REPLACEMENT 02/12/2008 AVR SECTION CORONARY ANGIOPLASTY WITH STENT PLACEMENT 2006 CORONARY ARTERY BYPASS GRAFT 02/12/2008 CABG x 1 GASTRIC BYPASS SURGERY 2004 Social History Substance Use Topics Smoking status: Current Every Day Smoker Packs/day: 1.00 Years: 30.00 Types: Cigarettes Smokeless tobacco: Never Used Alcohol use No Family History Problem Relation Age of Onset Early Father Heart Disease Father Heart Disease Sister Heart Disease Brother No Known Medical Problems Mother Review of Systems - Review of Systems Systems not reviewed;Unavailable: Acuity of Condition - Constitutional Constitutional: As Per HPI - EENT Eyes: As Per HPI Ears: As Per HPI Nose/Mouth/Throat: As Per HPI - Breasts Breasts: As Per HPI - Cardiovascular Cardiovascular: As Per HPI - Respiratory Respiratory: As Per HPI - Gastrointestinal Gastrointestinal: As Per HPI - Genitourinary Genitourinary: As Per HPI - Reproductive: Female Reproductive:Female: As Per HPI - Menstruation Menstruation: As Per HPI - Musculoskeletal Musculoskeletal: As Per HPI - Integumentary Integumentary: As Per HPI - Neurological Neurological: As Per HPI - Psychiatric Psychiatric: As Per HPI - Endocrine Endocrine: As Per HPI - Hematologic/Lymphatic Hematologic: As Per HPI Past Patient History - Past Medical History & Family History Past Medical History?: Yes - Past Social History Smoking Status: Heavy Smoker > 10 Cigarettes Daily - CARDIAC Hx Congestive Heart Failure: Yes Hx Hypertension: Yes Other/Comment: AVR - PULMONARY Hx Chronic Obstructive Pulmonary Disease (COPD): Yes (possible) - NEUROLOGICAL Hx Neurological Disorder: No - HEENT Hx HEENT Problems: No - RENAL Hx Chronic Kidney Disease: No - ENDOCRINE/METABOLIC Hx Endocrine Disorders: No - HEMATOLOGICAL/ONCOLOGICAL Hx Blood Disorders: No Hx Human Immunodeficiency Virus (HIV): No - INTEGUMENTARY Hx Dermatological Problems: No - MUSCULOSKELETAL/RHEUMATOLOGICAL Hx Falls: No - GASTROINTESTINAL Hx Gastrointestinal Disorders: No Other/Comment: gastric bypass-gastric band. >morbid obesity - GENITOURINARY/GYNECOLOGICAL Hx Genitourinary Disorders: No - PSYCHIATRIC Hx Substance Use: No - SURGICAL HISTORY Hx Gastric Bypass Surgery: Yes Hx Valve Replacement: Yes (aortic) - ANESTHESIA Hx Anesthesia: Yes Hx Anesthesia Reactions: No Hx Malignant Hyperthermia: No Has any member of the family had a problem w/ anesthesia?: No Meds Allergies/Adverse Reactions: Allergies Allergy/AdvReac Type Severity Reaction Status Date / Time No Known Allergies Allergy Verified 11/25/18 20:03 - Medications Medications: Current Medications Acetaminophen (Tylenol 325mg Tab) 650 mg PO Q6H PRN PRN Reason: Pain (1-10) Acetaminophen (Tylenol 325mg Tab) 650 mg PO Q6H PRN PRN Reason: Fever >100.4 F Last Admin: 11/27/18 13:14 Dose: 650 mg Albuterol/Ipratropium (Duoneb 3 Mg/0.5 Mg (3 Ml) Ud) 3 ml INH RQ4 [facility] Last Admin: 11/27/18 15:03 Dose: 3 ml Aspirin (Aspirin) 325 mg GT DAILY [facility] Last Admin: 11/27/18 08:25 Dose: 325 mg Atorvastatin Calcium (Lipitor) 40 mg PO DAILY [facility] Last Admin: 11/27/18 08:20 Dose: 40 mg Dimethicone (Proshield Plus Skin Protectant) 1 applic TOP Q8 [facility] Last Admin: 11/27/18 08:11 Dose: 1 applic Enoxaparin Sodium (Lovenox) 120 mg SC Q12H [facility]; Protocol Last Admin: 11/27/18 11:08 Dose: 120 mg Furosemide (Lasix) 40 mg IVP DAILY [facility] Last Admin: 11/27/18 08:15 Dose: 40 mg Azithromycin 500 mg/ Sodium (Chloride) 250 mls @ 250 mls/hr IVPB DAILY [facility]; Protocol Last Admin: 11/27/18 11:00 Dose: 250 mls/hr Vancomycin HCl 1 gm/ Sodium (Chloride) 250 mls @ 166.667 mls/hr IVPB DAILY [facility]; Protocol Last Admin: 11/27/18 08:21 Dose: 166.667 mls/hr Piperacillin Sod/Tazobactam (Sod 3.375 gm/ Sodium Chloride) 100 mls @ 100 mls/hr IVPB Q6 [facility]; Protocol Last Admin: 11/27/18 11:01 Dose: 100 mls/hr Propofol (Diprivan) 1,000 mg in 100 mls @ 3.946 mls/hr IV .Q24H [facility]; Protocol Stop: 11/28/18 08:24 Last Admin: 11/27/18 15:24 Dose: 35 mcg/kg/min, 27.624 mls/hr Metoprolol Succinate (Toprol Xl) 50 mg PO DAILY [facility] Last Admin: 11/27/18 08:21 Dose: 50 mg Morphine Sulfate (Morphine) 4 mg IVP Q4 PRN PRN Reason: Agitation Last Admin: 11/26/18 14:08 Dose: 4 mg Nystatin (Nystop Topical Powder) 1 applic TOP TID [facility] Last Admin: 11/27/18 12:23 Dose: 1 applic Oseltamivir Phosphate (Tamiflu Cap) 75 mg PO BID [facility]; Protocol Last Admin: 11/27/18 08:12 Dose: 75 mg Pantoprazole Sodium (Protonix Ec Tab) 40 mg PO DAILY [facility] Last Admin: 11/27/18 08:15 Dose: 40 mg Physical Exam - Constitutional Appears: Well - Head Exam Head Exam: ATRAUMATIC, NORMAL INSPECTION, NORMOCEPHALIC - Eye Exam Eye Exam: EOMI, Normal appearance, PERRL Pupil Exam: NORMAL ACCOMODATION, PERRL - ENT Exam ENT Exam: Mucous Membranes Moist, Normal Exam - Neck Exam Neck exam: Positive for: Normal Inspection - Respiratory Exam Respiratory Exam: Clear to Auscultation Bilateral, Rales, NORMAL BREATHING PATTERN - Cardiovascular Exam Cardiovascular Exam: REGULAR RHYTHM, RRR, +S1, +S2, Systolic Murmur - GI/Abdominal Exam GI & Abdominal Exam: Normal Bowel Sounds, Soft. absent: Tenderness - Extremities Exam Extremities exam: Positive for: normal inspection - Back Exam Back exam: NORMAL INSPECTION - Neurological Exam Neurological exam: Altered - Skin Skin Exam: Dry, Intact, Normal Color, Warm Results - Vital Signs Recent Vital Signs: Last Vital Signs Temp 100.3 F H 11/27/18 15:00 Pulse 93 H 11/27/18 15:00 Resp 22 11/27/18 16:00 BP 150/76 11/27/18 16:00 Pulse Ox 95 11/27/18 16:00 - Labs Result Diagrams: 11/27/18 04:40 11/27/18 04:40 Labs: Laboratory Results - last 24 hr 11/26/18 11/27/18 11/27/18 23:32 04:40 04:40 WBC 8.2 RBC 4.19 Hgb 13.0 Hct 39.8 MCV 95.1 MCH 31.1 H MCHC 32.7 L RDW 14.9 H Plt Count 165 PT 40.0 H INR 3.5 APTT 61.9 H pCO2 pO2 36 HCO3 ABG pH ABG Total CO2 ABG O2 Saturation ABG Base Excess ABG Hemoglobin ABG Carboxyhemoglobin POC ABG HHb (Measured) ABG Methemoglobin Juanito Test VBG pH 7.43 VBG pCO2 48 VBG HCO3 29.2 VBG Total CO2 33.4 H VBG O2 Sat (Calc) 78.4 H VBG Base Excess 6.4 H VBG Potassium 3.7 A-a O2 Difference Hgb O2 Saturation Sodium 140.0 Chloride 106.0 Glucose 113 H Lactate 0.9 Vent Mode FiO2 50.0 PEEP 3 Potassium Carbon Dioxide Anion Gap BUN Creatinine Est GFR ( Amer) Est GFR (Non-Af Amer) Random Glucose Calcium Phosphorus Magnesium Total Bilirubin AST ALT Alkaline Phosphatase Total Protein Albumin Globulin Albumin/Globulin Ratio TSH 3rd Generation Venous Blood Potassium 3.7 11/27/18 11/27/18 11/27/18 04:40 05:32 05:32 WBC RBC Hgb Hct MCV MCH MCHC RDW Plt Count PT INR APTT pCO2 47 H pO2 40 L* 85 H HCO3 27.4 ABG pH 7.41 ABG Total CO2 31.2 H ABG O2 Saturation 81.8 L ABG Base Excess 4.0 H ABG Hemoglobin 18.2 H ABG Carboxyhemoglobin 1.8 H POC ABG HHb (Measured) 17.7 H ABG Methemoglobin 1.3 Juanito Test Yes VBG pH 7.44 H VBG pCO2 43 VBG HCO3 28.3 VBG Total CO2 30.5 H VBG O2 Sat (Calc) 98.9 H VBG Base Excess 4.4 H VBG Potassium 3.6 A-a O2 Difference 218.0 Hgb O2 Saturation 79.3 L Sodium 141 137.0 Chloride 105 106.0 Glucose 117 H Lactate 0.9 Vent Mode A/c FiO2 50.0 50.0 PEEP 3 Potassium 3.7 Carbon Dioxide 32 H Anion Gap 8 L BUN 38 H Creatinine 1.1 Est GFR ( Amer) > 60 Est GFR (Non-Af Amer) 51 Random Glucose 107 H Calcium 7.9 L Phosphorus 3.2 Magnesium 2.1 Total Bilirubin 0.2 AST 62 H ALT 39 Alkaline Phosphatase 77 Total Protein 6.6 Albumin 2.9 L D Globulin 3.7 Albumin/Globulin Ratio 0.8 L TSH 3rd Generation 0.20 L Venous Blood Potassium 3.6 Assessment & Plan (1) NSTEMI (non-ST elevated myocardial infarction) Assessment and Plan: cont asa cont therapeutic lovenox cont bb plan for ischemic evalution once extubated echo - poor windows Status: Acute (2) CAP (community acquired pneumonia) Status: Acute (3) CHF exacerbation Assessment and Plan: 2' to respiratory failure from copd/viral bronchitis lasix bb Status: Acute (4) Respiratory distress Assessment and Plan: vent support Status: Acute (5) Respiratory failure with hypoxia and hypercapnia Status: Acute Priority: High (6) History of aortic valve replacement Status: Chronic (7) Morbid obesity Status: Chronic Priority: High (8) COPD (chronic obstructive pulmonary disease) Status: Suspected Priority: High
--- NOTE | 2018-11-27 20:44 | CARD ---
APPROVED REPORT Date of service: 11/27/2018 EKG Measurement Heart [id number] <Conclusion> Normal sinus rhythm Low voltage QRS Inferior infarct, age undetermined Anteroseptal infarct, age undetermined Abnormal ECG
[2018-11-28] MEDS: Proshield Plus GEL TOP SCH ×3 (01:06→17:09)
[2018-11-28] MEDS: Propofol 10 mg/ml 1,000 MG/100 ML VIAL IV SCH ×6 (02:00→20:53)
[2018-11-28] MEDS: Piperacillin/Tazobact 3.375 GM in Sodium Chloride 0.9% 100 ML IVPB SCH ×4 (04:24→21:37)
[2018-11-28] MEDS: Albuterol-Ipratrop 3 mg / 0.5 (3 ml) UD INH SCH ×6 (05:12→19:10)
[2018-11-28 05:45] LABS: ABG ALLEN TEST YES; ARTERIAL BLOOD GAS HEMOGLOBIN 12.7 g/dL (11.7-17.4); ARTERIAL BLOOD GAS O2 CAPACITY 17.3 mL/dL (16-24); ARTERIAL BLOOD GAS O2 CONTENT 17.2 ML/dL (15-23); ARTERIAL BLOOD GAS O2 SAT 99.2 % (95-98); ARTERIAL BLOOD GAS PCO2 58 mm/Hg (35-45); ARTERIAL BLOOD GAS PH 7.37 (7.35-7.45); ARTERIAL BLOOD GAS PO2 115 mm/Hg (80-100); ARTERIAL BLOOD GAS TCO2 35.3 mmol/L (22-28)
[2018-11-28 06:21] LABS: BASO % 0.3 % (0.0-2.0); EOS % 0.1 % (0.0-4.0); HEMOGLOBIN 11.5 g/dL (12.0-16.0); LYMPH # 0.6 K/uL (1.0-4.3); LYMPH % 8.7 % (20.0-40.0); MEAN CELL VOLUME 94.5 fl (81.0-99.0); MEAN CORPUSCULAR HEMOGLOBIN 30.7 pg (27.0-31.0); MEAN CORPUSCULAR HGB CONC 32.5 g/dL (33.0-37.0); MONO # 0.3 K/uL (0.0-0.8); MONO % 4.5 % (0.0-10.0); NEUT # 6.3 K/uL (1.8-7.0); NEUT % 86.4 % (50.0-75.0); NRBC % 0.1 % (0.0-0.0); RBC 3.75 Mil/uL (3.80-5.20); RED CELL DISTRIBUTION WIDTH 14.9 % (11.5-14.5); WHITE BLOOD COUNT 7.2 K/uL (4.8-10.8)
[2018-11-28 06:44] LABS: ALB/GLOB RATIO 0.8 (1.0-2.1); ALBUMIN 2.6 g/dL (3.5-5.0); ALT/SGPT 30 U/L (9-52); AST/SGOT 66 U/L (14-36); BLOOD UREA NITROGEN 33 mg/dl (7-17); CALCIUM 7.4 mg/dL (8.4-10.2); GFR NON-AFRICAN AMERICAN > 60
[2018-11-28] MEDS ORDERED: Potassium Chloride 20 mEq/15 ml LIQ UD NG ONE (07:02)
[2018-11-28] MEDS: Azithromycin 500 MG in Sodium Chloride 0.9% 250 ML IVPB SCH (09:23)
--- NOTE | 2018-11-28 09:32 | RAD ---
Date of service: 11/28/2018 HISTORY: intubated COMPARISON: Portable chest 11/27/2018. FINDINGS: LUNGS: Improved aeration is appreciate the right lung with trace residual patchy density mid to inferior right lung medially. Infiltrate at the mid to inferior left lung zone is unchanged. Endotracheal and nasogastric tubes are not significantly changed in position as well as right central venous line. PLEURA: No significant pleural effusion identified, no pneumothorax apparent. CARDIOVASCULAR: Calcific atherosclerotic changes are seen related to the thoracic aorta. Post CABG changes reiterated. Prominent cardiac silhouette appears stable. No pulmonary vascular congestion. OSSEOUS STRUCTURES: No significant abnormalities. VISUALIZED UPPER ABDOMEN: Normal. OTHER FINDINGS: None. IMPRESSION: No interval change in mid to inferior left pulmonary infiltrate with limited patchy infiltrate remaining at the medial right base.
[2018-11-28] MEDS: Enoxaparin 120 mg Syringe SC SCH (10:58)
--- NOTE | 2018-11-28 11:11 | CP.PCM.PN ---
Subjective - Date & Time of Evaluation Date of Evaluation: 11/28/18 Time of Evaluation: 11:11 - Subjective Subjective: Still intubated sedated Objective - Vital Signs/Intake and Output Vital Signs (last 24 hours): Temp Pulse Resp BP Pulse Ox 100.4 F H 113 H 18 141/81 96 11/28/18 07:07 11/28/18 10:57 11/28/18 10:00 11/28/18 10:57 11/28/18 10:00 Intake and Output: 11/27/18 11/28/18 23:59 11:59 Intake Total 1699 1172 Output Total 1470 1300 Balance 229 -128 - Medications Medications: Current Medications Acetaminophen (Tylenol 325mg Tab) 650 mg PO Q6H PRN PRN Reason: Pain (1-10) Acetaminophen (Tylenol 325mg Tab) 650 mg PO Q6H PRN PRN Reason: Fever >100.4 F Last Admin: 11/28/18 06:07 Dose: 650 mg Albuterol/Ipratropium (Duoneb 3 Mg/0.5 Mg (3 Ml) Ud) 3 ml INH RQ4 [facility] Last Admin: 11/28/18 07:20 Dose: 3 ml Aspirin (Aspirin) 325 mg GT DAILY [facility] Last Admin: 11/28/18 09:08 Dose: 325 mg Atorvastatin Calcium (Lipitor) 40 mg PO DAILY [facility] Last Admin: 11/28/18 09:10 Dose: 40 mg Dimethicone (Proshield Plus Skin Protectant) 1 applic TOP Q8 [facility] Last Admin: 11/28/18 09:11 Dose: 1 applic Enoxaparin Sodium (Lovenox) 120 mg SC Q12H [facility]; Protocol Last Admin: 11/28/18 10:58 Dose: 120 mg Furosemide (Lasix) 40 mg IVP DAILY [facility] Last Admin: 11/28/18 09:09 Dose: 40 mg Azithromycin 500 mg/ Sodium (Chloride) 250 mls @ 250 mls/hr IVPB DAILY [facility]; Protocol Last Admin: 11/28/18 09:23 Dose: 250 mls/hr Vancomycin HCl 1 gm/ Sodium (Chloride) 250 mls @ 166.667 mls/hr IVPB DAILY [facility]; Protocol Last Admin: 11/28/18 09:14 Dose: 166.667 mls/hr Piperacillin Sod/Tazobactam (Sod 3.375 gm/ Sodium Chloride) 100 mls @ 100 mls/hr IVPB Q6 [facility]; Protocol Last Admin: 11/28/18 10:59 Dose: 100 mls/hr Propofol (Diprivan) 1,000 mg in 100 mls @ 3.946 mls/hr IV .Q24H [facility]; Protocol Stop: 11/29/18 09:32 Last Admin: 11/28/18 09:35 Dose: 35 mcg/kg/min, 27.624 mls/hr Metoprolol Succinate (Toprol Xl) 50 mg PO DAILY [facility] Last Admin: 11/27/18 08:21 Dose: 50 mg Metoprolol Tartrate (Lopressor) 25 mg PO Q12 [facility] Last Admin: 11/28/18 10:57 Dose: 25 mg Morphine Sulfate (Morphine) 4 mg IVP Q4 PRN PRN Reason: Agitation Last Admin: 11/26/18 14:08 Dose: 4 mg Nystatin (Nystop Topical Powder) 1 applic TOP TID [facility] Last Admin: 11/28/18 09:10 Dose: 1 applic Oseltamivir Phosphate (Tamiflu Cap) 75 mg PO BID [facility]; Protocol Last Admin: 11/28/18 09:12 Dose: 75 mg Pantoprazole Sodium (Protonix Inj) 40 mg IVP DAILY [facility] Last Admin: 11/28/18 10:58 Dose: 40 mg - Labs Labs: 11/28/18 05:40 11/28/18 05:40 PT 40.0 Seconds (9.8-13.1) H 11/27/18 04:40 INR 3.5 11/27/18 04:40 APTT 61.9 Seconds (25.6-37.1) H 11/27/18 04:40 - Constitutional Appears: Chronically Ill - Head Exam Head Exam: ATRAUMATIC, NORMAL INSPECTION, NORMOCEPHALIC - Neck Exam Neck Exam: Normal Inspection - Respiratory Exam Respiratory Exam: Decreased Breath Sounds - Cardiovascular Exam Cardiovascular Exam: REGULAR RHYTHM, +S1, +S2 - GI/Abdominal Exam GI & Abdominal Exam: Soft, Normal Bowel Sounds - Extremities Exam Extremities Exam: Normal Inspection - Neurological Exam Additional comments: Sedated - Skin Skin Exam: Normal Color Assessment and Plan (1) CAP (community acquired pneumonia) Status: Acute (2) CHF exacerbation Status: Acute (3) DVT prophylaxis Status: Acute (4) History of aortic valve replacement Status: Chronic (5) Influenza A Status: Acute (6) NSTEMI (non-ST elevated myocardial infarction) Status: Acute (7) Pneumonia and influenza Status: Acute (8) Respiratory distress Status: Acute (9) Respiratory failure with hypoxia and hypercapnia Status: Acute (10) Morbid obesity Status: Chronic (11) COPD (chronic obstructive pulmonary disease) Status: Suspected (12) Myocardial ischemia Status: Acute - Assessment and Plan (Free Text) Plan: Continue present rx.
--- NOTE | 2018-11-28 13:53 | CP.PCM.PN ---
Subjective - Date & Time of Evaluation Date of Evaluation: 11/28/18 Time of Evaluation: 13:47 - Subjective Subjective: The patient is seen in the intensive care unit on rounds. She remains sedated, orally intubated and mechanically ventilated. Febrile pattern continues with a MAXIMUM TEMPERATURE of 101F. Mildly tachycardic and normotensive. Respiratory rate 18/m. End-tidal CO2 40 mmHg. Peak airway pressure has decreased to 28 cm of water. Plateau pressure is also down to 26 cm of water. FiO2 is 0.5 and SPO2 is 96%. Today's chest x-ray is not viewable but reported as improved aeration in the right lung with trace residual patchy density. Infiltrate in the left lung appears unchanged. No significant pleural effusion or pneumothorax is seen. WBC 7.2 and hemoglobin 11.5 with platelets of 151. Arterial blood gas from earlier today shows a PaCO2 of 58 and PaO2 of 115 with a bicarbonate of 30 and a pH of 7.37. Chemistries appear stable at this time. Urine culture has no growth and sputum culture returned normal lizette. On exam the patient is sedated and orally intubated. Neck is supple and trachea is midline. Right IJ catheter in place. No dullness on percussion of the anterior thorax. No subcutaneous emphysema. Breath sounds are fairly well heard bilaterally and appear improved over the day prior. Scattered rales are still present in both lungs as are sonorous rhonchi but there are no wheezes or bronchial breath sounds heard. Heart sounds are somewhat distant and the rhythm is regular. The abdomen is obese and bowel sounds are present. Extremities are warm to touch and there is no cyanosis. Trace dependent edema is noted. No rash or ecchymosis. Influenza with pneumonia. Non-STEMI acute. Respiratory failure secondary to the above. Exogenous obesity. Gradual ventilator changes will be made with decrease and the respiratory rate. Current FiO2 will be maintained at 50% to ensure SPO2 greater than 95%. Continue with Tamiflu for influenza and empiric antibiotic coverage for the possibility of bacterial pneumonitis. Continue therapeutic anticoagulation and ASA. GI prophylaxis. Objective - Vital Signs/Intake and Output Vital Signs (last 24 hours): Temp Pulse Resp BP Pulse Ox 100.4 F H 109 H 18 112/77 96 11/28/18 07:07 11/28/18 13:00 11/28/18 13:00 11/28/18 13:00 11/28/18 13:00 Intake and Output: 11/28/18 11/28/18 11:59 23:59 Intake Total 1322 256 Output Total 1300 1200 Balance 22 -944 - Medications Medications: Current Medications Acetaminophen (Tylenol 325mg Tab) 650 mg PO Q6H PRN PRN Reason: Pain (1-10) Acetaminophen (Tylenol 325mg Tab) 650 mg PO Q6H PRN PRN Reason: Fever >100.4 F Last Admin: 11/28/18 06:07 Dose: 650 mg Albuterol/Ipratropium (Duoneb 3 Mg/0.5 Mg (3 Ml) Ud) 3 ml INH RQ4 [facility] Last Admin: 11/28/18 11:13 Dose: 3 ml Aspirin (Aspirin) 325 mg GT DAILY [facility] Last Admin: 11/28/18 09:08 Dose: 325 mg Atorvastatin Calcium (Lipitor) 40 mg PO DAILY [facility] Last Admin: 11/28/18 09:10 Dose: 40 mg Dimethicone (Proshield Plus Skin Protectant) 1 applic TOP Q8 [facility] Last Admin: 11/28/18 09:11 Dose: 1 applic Enoxaparin Sodium (Lovenox) 120 mg SC Q12H [facility]; Protocol Last Admin: 11/28/18 10:58 Dose: 120 mg Furosemide (Lasix) 40 mg IVP DAILY [facility] Last Admin: 11/28/18 09:09 Dose: 40 mg Azithromycin 500 mg/ Sodium (Chloride) 250 mls @ 250 mls/hr IVPB DAILY [facility]; Protocol Last Admin: 11/28/18 09:23 Dose: 250 mls/hr Vancomycin HCl 1 gm/ Sodium (Chloride) 250 mls @ 166.667 mls/hr IVPB DAILY [facility]; Protocol Last Admin: 11/28/18 09:14 Dose: 166.667 mls/hr Piperacillin Sod/Tazobactam (Sod 3.375 gm/ Sodium Chloride) 100 mls @ 100 mls/hr IVPB Q6 [facility]; Protocol Last Admin: 11/28/18 10:59 Dose: 100 mls/hr Propofol (Diprivan) 1,000 mg in 100 mls @ 3.946 mls/hr IV .Q24H [facility]; Protocol Stop: 11/29/18 09:32 Last Admin: 11/28/18 13:13 Dose: 35 mcg/kg/min, 27.624 mls/hr Metoprolol Succinate (Toprol Xl) 50 mg PO DAILY [facility] Last Admin: 11/27/18 08:21 Dose: 50 mg Metoprolol Tartrate (Lopressor) 25 mg PO Q12 [facility] Last Admin: 11/28/18 10:57 Dose: 25 mg Morphine Sulfate (Morphine) 4 mg IVP Q4 PRN PRN Reason: Agitation Last Admin: 11/26/18 14:08 Dose: 4 mg Nystatin (Nystop Topical Powder) 1 applic TOP TID [facility] Last Admin: 11/28/18 09:10 Dose: 1 applic Oseltamivir Phosphate (Tamiflu Cap) 75 mg PO BID [facility]; Protocol Last Admin: 11/28/18 09:12 Dose: 75 mg Pantoprazole Sodium (Protonix Inj) 40 mg IVP DAILY [facility] Last Admin: 11/28/18 10:58 Dose: 40 mg - Labs Labs: 11/28/18 05:40 11/28/18 05:40 PT 40.0 Seconds (9.8-13.1) H 11/27/18 04:40 INR 3.5 11/27/18 04:40 APTT 61.9 Seconds (25.6-37.1) H 11/27/18 04:40 Assessment and Plan (1) Respiratory failure with hypoxia and hypercapnia Status: Acute (2) Influenza A Status: Acute (3) Pneumonia and influenza Status: Acute (4) Morbid obesity Status: Chronic (5) COPD (chronic obstructive pulmonary disease) Status: Suspected
[2018-11-29] MEDS: Albuterol-Ipratrop 3 mg / 0.5 (3 ml) UD INH SCH ×7 (00:17→23:59)
[2018-11-29] MEDS: Propofol 10 mg/ml 1,000 MG/100 ML VIAL IV SCH ×4 (00:40→21:06)
[2018-11-29] MEDS: Proshield Plus GEL TOP SCH ×3 (01:10→16:34)
[2018-11-29] MEDS: Piperacillin/Tazobact 3.375 GM in Sodium Chloride 0.9% 100 ML IVPB SCH ×4 (04:10→21:06)
[2018-11-29 05:28] LABS: ABG ALLEN TEST YES; ARTERIAL BLOOD GAS HCO3 29.9 mmol/L (21-28); ARTERIAL BLOOD GAS HEMOGLOBIN 10.3 g/dL (11.7-17.4); ARTERIAL BLOOD GAS O2 CONTENT 13.3 ML/dL (15-23); ARTERIAL BLOOD GAS O2 SAT 95.2 % (95-98); ARTERIAL BLOOD GAS PCO2 45 mm/Hg (35-45); ARTERIAL BLOOD GAS PH 7.45 (7.35-7.45); ARTERIAL BLOOD GAS PO2 57 mm/Hg (80-100); ARTERIAL BLOOD GAS TCO2 32.7 mmol/L (22-28)
--- NOTE | 2018-11-29 05:35 | PN ---
DATE: 11/28/2018 CRITICAL CARE PROGRESS NOTE The patient in ICU, bed 413. Time spent 35 minutes. The patient is seen and evaluated at the bedside. Past medical, surgical, family, social history are reviewed as noted in H and P and performance consultant's note. SUBJECTIVE: A 58-year-old female with history significant for morbid obesity, chronic obstructive pulmonary disease, valvular heart disease, status post PCI, status post aortic valve replacement, on Coumadin, hypertension, hyperlipidemia, pneumonia. Admitted with hypercapnic hypoxic respiratory failure, intubated, placed on mechanical ventilation on AC/PRVC, rate 18, tidal volume 450, FiO2 50%, PEEP of 3, observed rate 18, observed tidal volume 400, minute ventilation 7.2 L, saturation 97%, peak airway pressure 27, end-tidal CO2 of 16, sedated on Diprivan drip. PHYSICAL EXAMINATION: VITAL SIGNS: Temperature 100.4, heart rate 112, blood pressure 138/76. Intake 3109, output 4170, negative balance 1061. HEAD, EYES, EARS, NOSE AND THROAT: Pupils are 2-3 mm, reactive. No icterus. No gaze preference. NECK: Short. Reduced oropharyngeal air space. CHEST: Bilateral breath sounds, diminished in intensity. Clear to auscultation anteriorly and laterally. HEART: Rhythm regular. S1 and S2 distant. No audible murmur. ABDOMEN: Pendulous, soft, nontender. EXTREMITIES: No leg edema. NEUROLOGIC: Sedated on Diprivan. SKIN: Ecchymosis on the right neck at the site of the TLC insertion. CURRENT MEDICATIONS: Include Tylenol 650 mg every 6 hours p.r.n. for pain, Tylenol 650 mg p.o. every 6 hours for temp over 100.4, DuoNeb 3 mL via nebulizer every 4 hours, aspirin 325 mg daily, atorvastatin 40 mg p.o. daily, azithromycin 500 mg IV daily, Lovenox 120 mg subcu every 12 hours, furosemide 40 mg IV daily, metoprolol 25 mg p.o. every 12 hours, morphine 4 mg IV every 4 hours p.r.n. for agitation, nystatin powder one application topically three times daily, Tamiflu 75 mg twice daily, vancomycin 1 g IV daily. LABORATORY DATA: WBC 7.3, hemoglobin 11.5, hematocrit 35.5, platelet count 151, neutrophils 86.4, lymphocytes 8.7, monocytes 45. PT 40, INR 3.5, PTT 61.9. ABG: The pH of 7.37, pCO2 of 58, pO2 of 115, saturation 99.2 on AC 22/450/50%, PEEP of 3. SMA-7: Sodium 144, potassium 3.4, chloride 107, CO2 of 34, blood urea nitrogen 33, creatinine 0.9, random glucose 112. Lactic acid pending. Calcium 7.4. Total bilirubin 0.2, AST 66, ALT 30, alkaline phosphatase 68. Troponin 2.4, total protein 6.1, albumin 2.6. TSH of 0.2. Potassium 3.6. Microbiology: Urine culture, no growth. Sputum culture, normal lizette. Blood culture, no growth. Nasal smear MRSA negative. Chest x-ray: Endotracheal tube in place, post-CABG changes, prominent cardiac silhouette, no pulmonary vascular congestion, calcific atherosclerotic changes located at the thoracic aorta, no significant pleural effusion or pneumothorax, residual patchy density in the mid to inferior right lung medially, infiltrate at the mid to inferior left lung zone unchanged. Echocardiogram on , left ventricle is not well visualized, likely normal LV function, mitral valve cannot be assessed, aortic valve not well visualized. ASSESSMENT AND PLAN: 1. Neuro: Sedated on Diprivan, intubated, on mechanical ventilation. 2. Pulmonary: Acute hypercapnic respiratory failure secondary to chronic obstructive pulmonary disease exacerbation, status post acute pulmonary edema secondary to [id number] myocardial infarction. Continue bronchodilator 3 mL via nebulizer every 4 hours. Not able to wean off the ventilator due to tachycardia and desaturation on weaning off the sedation. 3. Cardiac: [id number] myocardial infarction, on metoprolol, Lasix and Lovenox. 4. Hematology: Anemia of chronic disease, thrombocytopenia. 5. Infectious Disease: Influenza A and B positive, superimposed pneumonia and pulmonary vascular congestion associated with pulmonary edema, improved. 6. Renal: Hypokalemia, on potassium supplement, trending blood urea nitrogen and creatinine. 7. Endocrinology. Maintain a blood sugar below 180 No history of hypothyroidism. Keep the head of bed 30 degrees up. Olivarez for adequate urine output. Peripherally inserted central catheter pending due to coagulopathy.Anti coagulation on hold secondary to melanotic stool, thrmbocytopenia GI: on PPI, melanotic stool . check stool occult blood. Jered Black MD Paulino # [id number] RICHARD
[2018-11-29 06:53] LABS: BASO % 0.3 % (0.0-2.0); EOS % 0.1 % (0.0-4.0); HEMOGLOBIN 9.2 g/dL (12.0-16.0); LYMPH # 0.9 K/uL (1.0-4.3); LYMPH % 8.9 % (20.0-40.0); MEAN CELL VOLUME 96.4 fl (81.0-99.0); MEAN CORPUSCULAR HEMOGLOBIN 31.5 pg (27.0-31.0); MEAN CORPUSCULAR HGB CONC 32.7 g/dL (33.0-37.0); MEAN PLATELET VOLUME 9.5 fl (7.2-11.7); MONO # 0.5 K/uL (0.0-0.8); MONO % 4.8 % (0.0-10.0); NEUT # 8.8 K/uL (1.8-7.0); NEUT % 85.9 % (50.0-75.0); PLATELET COUNT 145 K/uL (130-400); RBC 2.91 Mil/uL (3.80-5.20); RED CELL DISTRIBUTION WIDTH 14.4 % (11.5-14.5); WHITE BLOOD COUNT 10.2 K/uL (4.8-10.8)
[2018-11-29 07:08] LABS: ALB/GLOB RATIO 0.8 (1.0-2.1); ALBUMIN 2.5 g/dL (3.5-5.0); CALCIUM 7.4 mg/dL (8.4-10.2)
[2018-11-29] MEDS: Azithromycin 500 MG in Sodium Chloride 0.9% 250 ML IVPB SCH (08:15)
--- NOTE | 2018-11-29 08:57 | RAD ---
Date of service: 11/29/2018 HISTORY: intubated COMPARISON: Portable chest 11/28/2018. FINDINGS: LUNGS: Endotracheal and nasogastric tubes do not appear significantly changed in position with right central venous line also stable. No significant improvement in mid to inferior left-sided infiltrate with none appreciated at the right. PLEURA: No significant pleural effusion identified, no pneumothorax apparent. CARDIOVASCULAR: Calcific atherosclerotic changes are seen related to the thoracic aorta. Post CABG changes reiterated with cardiomegaly unchanged. No definitive pulmonary vascular congestion. OSSEOUS STRUCTURES: No significant abnormalities. VISUALIZED UPPER ABDOMEN: Normal. OTHER FINDINGS: None. IMPRESSION: No interval change in mid to inferior left-sided pulmonary infiltrate with none appreciated at the right. No pulmonary vascular congestion.
[2018-11-29 11:15] LABS: LYMPHOCYTE 12 % (20-50); MONOCYTE 7 % (0-10); NEUTROPHIL 81 % (42-75); TOTAL CELLS COUNTED 100
[2018-11-29 11:26] LABS: PLATELET ESTIMATE NORMAL (NORMAL)
--- NOTE | 2018-11-29 14:01 | CP.PCM.PN ---
Subjective - Date & Time of Evaluation Date of Evaluation: 11/29/18 Time of Evaluation: 14:02 - Subjective Subjective: Patient sedated intubated febrile same melena with decrease in H/H. Will follow CBC will transfuse as necessary. Continue supportive rx. Prognosis guarded. Objective - Vital Signs/Intake and Output Vital Signs (last 24 hours): Temp Pulse Resp BP Pulse Ox 99 F 107 H 21 107/66 98 11/29/18 04:00 11/29/18 13:00 11/29/18 13:00 11/29/18 13:00 11/29/18 13:00 Intake and Output: 11/29/18 11/29/18 11:59 23:59 Intake Total 1820 190 Output Total 500 100 Balance 1320 90 - Medications Medications: Current Medications Acetaminophen (Tylenol 325mg Tab) 650 mg PO Q6H PRN PRN Reason: Pain (1-10) Acetaminophen (Tylenol 325mg Tab) 650 mg PO Q6H PRN PRN Reason: Fever >100.4 F Last Admin: 11/28/18 06:07 Dose: 650 mg Albuterol/Ipratropium (Duoneb 3 Mg/0.5 Mg (3 Ml) Ud) 3 ml INH RQ4 [facility] Last Admin: 11/29/18 11:24 Dose: 3 ml Aspirin (Aspirin) 325 mg GT DAILY [facility] Last Admin: 11/29/18 08:04 Dose: 325 mg Atorvastatin Calcium (Lipitor) 40 mg PO DAILY [facility] Last Admin: 11/29/18 08:11 Dose: 40 mg Dimethicone (Proshield Plus Skin Protectant) 1 applic TOP Q8 [facility] Last Admin: 11/29/18 08:13 Dose: 1 applic Furosemide (Lasix) 40 mg IVP DAILY [facility] Last Admin: 11/29/18 08:07 Dose: 40 mg Azithromycin 500 mg/ Sodium (Chloride) 250 mls @ 250 mls/hr IVPB DAILY [facility]; Protocol Last Admin: 11/29/18 08:15 Dose: 250 mls/hr Vancomycin HCl 1 gm/ Sodium (Chloride) 250 mls @ 166.667 mls/hr IVPB DAILY [facility]; Protocol Last Admin: 11/29/18 08:10 Dose: 166.667 mls/hr Piperacillin Sod/Tazobactam (Sod 3.375 gm/ Sodium Chloride) 100 mls @ 100 mls/hr IVPB Q6 [facility]; Protocol Last Admin: 11/29/18 10:54 Dose: 100 mls/hr Metoprolol Tartrate (Lopressor) 25 mg PO Q12 [facility] Last Admin: 11/29/18 08:12 Dose: 25 mg Nystatin (Nystop Topical Powder) 1 applic TOP TID [facility] Last Admin: 11/29/18 12:39 Dose: 1 applic Oseltamivir Phosphate (Tamiflu Cap) 75 mg PO BID [facility]; Protocol Last Admin: 11/29/18 08:15 Dose: 75 mg Pantoprazole Sodium (Protonix Inj) 40 mg IVP DAILY [facility] Last Admin: 11/29/18 08:13 Dose: 40 mg - Labs Labs: 11/29/18 05:30 11/29/18 05:30 PT 40.0 Seconds (9.8-13.1) H 11/27/18 04:40 INR 3.5 11/27/18 04:40 APTT 61.9 Seconds (25.6-37.1) H 11/27/18 04:40 - Constitutional Appears: Chronically Ill - Head Exam Head Exam: ATRAUMATIC, NORMAL INSPECTION, NORMOCEPHALIC - Eye Exam Eye Exam: Normal appearance - Neck Exam Neck Exam: Normal Inspection - Respiratory Exam Respiratory Exam: Decreased Breath Sounds, Rhonchi, Wheezes - Cardiovascular Exam Cardiovascular Exam: Tachycardia, REGULAR RHYTHM, +S1, +S2 - GI/Abdominal Exam GI & Abdominal Exam: Soft - Neurological Exam Additional comments: sedated Assessment and Plan (1) CAP (community acquired pneumonia) Status: Acute (2) CHF exacerbation Status: Acute (3) DVT prophylaxis Status: Acute (4) History of aortic valve replacement Status: Chronic (5) Influenza A Status: Acute (6) NSTEMI (non-ST elevated myocardial infarction) Status: Acute (7) Pneumonia and influenza Status: Acute (8) Respiratory distress Status: Acute (9) Respiratory failure with hypoxia and hypercapnia Status: Acute (10) Morbid obesity Status: Chronic (11) COPD (chronic obstructive pulmonary disease) Status: Suspected (12) Myocardial ischemia Status: Acute
[2018-11-29 18:40] LABS: FIBRINOGEN 463 mg/dl (200-400)
[2018-11-29 18:42] LABS: D DIMER 205 ng/mlDDU (0-230)
[2018-11-29 19:08] LABS: FDP INTERPRETATION POSITIVE (NEGATIVE); FDP QUANTITY >10<40 ug/mL (<10)
--- NOTE | 2018-11-29 22:21 | PN ---
DATE: 11/29/2018 CRITICAL CARE PROGRESS NOTE LOCATION: The patient is in ICU, bed 430. TIME SPENT: 35 minutes. SUBJECTIVE: The patient is seen and evaluated at the bedside. Past medical, surgical, family and social history reviewed as noted in H and P and finance consultant's note. A 58-year-old female, morbidly obese. History is significant for chronic obstructive pulmonary disease; valvular heart disease, status post aortic valve replacement, on Coumadin; status post PCI; hypertension; hyperlipidemia; previous pneumonia. Admitted with hypercapnic hypoxic respiratory failure, intubated, placed on mechanical ventilation on AC/PRVC rate 16, tidal volume of 450, FiO2 50%, PEEP of 5. Observed rate 24, observed tidal volume 410, minute ventilation 10 L, saturation 95%, end-tidal CO2 of 32. The patient noted to desaturate and become restless on weaning off Diprivan. Continues to have melenic stool. Flexi-Seal in place. Anticoagulation on hold secondary to melenic stools and due to ecchymosis at the site of right IJ insertion, and drop in hemoglobin. PHYSICAL EXAMINATION VITAL SIGNS: T-max 99.1, heart rate 117 to 128, blood pressure 118/73, mean arterial pressure 88, respiratory rate 22, saturation 93% on FiO2 of 50. Intake 3323 and output 1900, positive balance 1423. HEENT: Pupils are 2-3 mm, reactive. Conjunctivae pink. Sclerae white. NECK: Short. Reduced oropharyngeal airspace. Endotracheal tube in place. No secretion noted. LUNGS: Bilateral breath sounds, clear to auscultation anteriorly and laterally. Scattered rhonchi at the bases. HEART: Rhythm regular. S1 and S2 normal. No audible murmur. ABDOMEN: Obese. Bowel sounds present. Soft. NG tube in place. EXTREMITIES: With dependent edema reduced. DP palpable, reduced in intensity. SKIN: Ecchymosis on the right side of the neck. NEUROLOGIC: Alert and awake. On holiday sedation, becomes restless and agitated. MEDICATIONS: Current medications are Tylenol 650 every 6 hours p.r.n. for pain and for fever over 100.4, aspirin 325 mg daily, DuoNeb 3 mL via nebulizer every 4 hours, Lipitor 40 mg daily, Zithromax 500 mg IV daily, dimethicone/Proshield Plus skin protectant one application topically every 8 hours, Lasix 40 mg IV daily, Lopressor 25 mg p.o. every 12 hours, nystatin powder one application topically three times daily, Tamiflu 75 mg p.o. twice daily for 5 days, Protonix 40 IV daily, Zosyn 3.375 g IV every 6 hours, vancomycin 1 g IV daily. LABORATORY DATA: WBC 10.2, hemoglobin 9.2, hematocrit 28.1, platelet count 145, neutrophils 85.9, lymphocytes 8.9, monocytes 4.8. PT 40, INR 3.5. ABG: pH of 7.45, pCO2 of 45, pO2 of 57, saturation 95.2 on AC of 16, 450, 50% with significant hypoxemia and wide A-a gradient. SMA-7: Sodium 143, potassium 3.6, chloride 103, CO2 of 31, blood urea nitrogen 44, creatinine 1.3, random glucose 130, calcium 7.4, total bilirubin 0.2, AST 60, ALT 36, alkaline phosphatase 86, total protein of 5.8, albumin 2.5. TSH 0.2. Urinalysis negative. Serology, influenza A and B positive. Microbiology: Urine culture, no growth. Sputum culture, normal lizette. Blood culture, no growth. Nasal smear, MRSA negative. Chest x-ray done this morning, endotracheal tube in place, nasogastric tube in place. No significant improvement in mid to inferior left-sided infiltrate, with no infiltrate on the right side. No significant pleural effusion or pneumothorax. Cardiac atherosclerotic changes related to thoracic aorta, post CABG changes with cardiomegaly. IMPRESSION: 1. Neuro: Admitted with hypercapnic hypoxic respiratory failure. Sedated on the Diprivan drip. Suspect septic hypoxic encephalopathy. On reducing Diprivan, the patient is awake but gets agitated and restless. Continue Diprivan to facilitate mechanical ventilation. 2. Pulmonary: Hypoxic hypercapnic respiratory failure. Influenza A and B positive, superimposed pneumonia. Continue bronchodilator, antibiotic and Tamiflu. 3. Cardiac: Status post aortic valve replacement. Coronary artery bypass graft. On Coumadin. Noted to have coagulopathy, status post vitamin K. Anticoagulation with heparin on hold due to melenic stool, INR 3.5 4. Infectious Disease: Influenza A and B positive, superimposed from pneumonia. Continue antibiotics. 5. Renal: Knewy-le-bnvgthi renal insufficiency. History of hypertension. 6. Endocrine. TSH 0.2. Blood sugar 130. Continue nasogastric feeding as tolerated. Continue deep venous thrombosis prophylaxis with mechanical device. Anticoagulation on hold secondary to melenic stools, echymosis, drop in hemoglobin. Gastrointestinal prophylaxis. Keep the head of bed 30 degrees up. GI consult as per evaluation as per PMD to assess the lower GI versus upper GI bleeding related to gastritis. Jered Black MD MTDD
[2018-11-30] MEDS: Proshield Plus GEL TOP SCH ×3 (01:00→16:29)
[2018-11-30] MEDS: Albuterol-Ipratrop 3 mg / 0.5 (3 ml) UD INH SCH ×6 (04:36→23:52)
[2018-11-30 04:55] LABS: ABG ALLEN TEST YES; ARTERIAL BLOOD GAS HCO3 28.1 mmol/L (21-28); ARTERIAL BLOOD GAS HEMOGLOBIN 7.2 g/dL (11.7-17.4); ARTERIAL BLOOD GAS O2 CONTENT 9.9 ML/dL (15-23); ARTERIAL BLOOD GAS O2 SAT 98.6 % (95-98); ARTERIAL BLOOD GAS PCO2 50 mm/Hg (35-45); ARTERIAL BLOOD GAS PH 7.38 (7.35-7.45); ARTERIAL BLOOD GAS PO2 92 mm/Hg (80-100); ARTERIAL BLOOD GAS TCO2 31.1 mmol/L (22-28)
[2018-11-30 06:42] LABS: BASO % 0.4 % (0.0-2.0); EOS % 0.2 % (0.0-4.0); HEMOGLOBIN 6.8 g/dL (12.0-16.0); LYMPH # 1.1 K/uL (1.0-4.3); LYMPH % 9.2 % (20.0-40.0); MEAN CORPUSCULAR HGB CONC 32.3 g/dL (33.0-37.0); MEAN PLATELET VOLUME 9.4 fl (7.2-11.7); MONO # 0.6 K/uL (0.0-0.8); MONO % 5.3 % (0.0-10.0); NEUT # 10.3 K/uL (1.8-7.0); NEUT % 84.9 % (50.0-75.0); RBC 2.19 Mil/uL (3.80-5.20); RED CELL DISTRIBUTION WIDTH 14.8 % (11.5-14.5); WHITE BLOOD COUNT 12.1 K/uL (4.8-10.8)
[2018-11-30 06:47] LABS: ALB/GLOB RATIO 0.8 (1.0-2.1); ALBUMIN 2.5 g/dL (3.5-5.0); CALCIUM 7.5 mg/dL (8.4-10.2)
[2018-11-30 08:13] LABS: BASO % 0.3 % (0.0-2.0); EOS % 0.3 % (0.0-4.0); HEMOGLOBIN 6.7 g/dL (12.0-16.0); LYMPH # 1.1 K/uL (1.0-4.3); LYMPH % 8.6 % (20.0-40.0); MEAN CELL VOLUME 95.9 fl (81.0-99.0); MEAN CORPUSCULAR HEMOGLOBIN 30.7 pg (27.0-31.0); MEAN PLATELET VOLUME 8.9 fl (7.2-11.7); MONO # 0.6 K/uL (0.0-0.8); MONO % 4.6 % (0.0-10.0); NEUT # 11.4 K/uL (1.8-7.0); NEUT % 86.2 % (50.0-75.0); RBC 2.19 Mil/uL (3.80-5.20); RED CELL DISTRIBUTION WIDTH 14.7 % (11.5-14.5); WHITE BLOOD COUNT 13.2 K/uL (4.8-10.8)
[2018-11-30 08:25] LABS: INR 1.2; PROTHROMBIN TIME 13.1 Seconds (9.8-13.1)
[2018-11-30 08:27] LABS: PARTIAL THROMBOPLASTIN TIME 31.4 Seconds (25.6-37.1)
--- NOTE | 2018-11-30 08:49 | RAD ---
Date of service: 11/30/2018 HISTORY: Patient intubated COMPARISON: Portable chest 11/29/2018 FINDINGS: LUNGS: Endotracheal and nasogastric tubes are not significantly changed in position nor is right central venous line. Post CABG changes are reiterated as well. Prior left-sided infiltrate appears diminished however pulmonary vascular pattern appears slightly increased bilaterally with accentuated bronchovascular markings as well. Consider possible pulmonary edema. PLEURA: No significant pleural effusion identified, no pneumothorax apparent. CARDIOVASCULAR: Calcific atherosclerotic changes are seen related to the thoracic aorta. Normal cardiac size. Mild pulmonary vascular congestion suspected. OSSEOUS STRUCTURES: No significant abnormalities. VISUALIZED UPPER ABDOMEN: Normal. OTHER FINDINGS: None. IMPRESSION: Improved left-sided infiltrate however mild pulmonary vascular congestion is suspected at this time. Continued clinical and radiographic monitoring are advised.
--- NOTE | 2018-11-30 09:28 | CP.PCM.PN ---
Subjective - Date & Time of Evaluation Date of Evaluation: 11/30/18 Time of Evaluation: 09:25 - Subjective Subjective: Seen in ICU on rounds. Case discussed with lithoduplicator operator and nursing. Labs and chest x-ray reviewed. She remains orally intubated and mechanically ventilated. Awake, responds to questions by shaking her head. Denies pain, but distressed and unable to communicate reason. Vital signs noted, she has been afebrile >24 hrs. Urine output has been good, BUN/Creat increase noted. Sputum culture 'normal lizette'. Hemoglobin has dropped to 6+, type/Xmatch done. Stool guiac positive, large hematoma right shoulder. Chest x-ray shows continued clearing of the pneumonia, still with vascular congestive pattern. Peak airways pressure down to 26cm, plateau 24cm. Vt on pressure support of 15 with PEEP 5 ~400mls. No subcut emphysema palpated, no dullness anterior chest wall. Breath sounds are well heard in both lungs with few scattered E wheezes on the right. Dry rales in lower lobes posteriorly of both lungs. Few rhonchi bilaterally. Heart sounds are distant, regular. Abdomen is obese, soft and non-tender. Bowel sounds are normal. Extremities are warm to touch, no calf tenderness, no edema or cyanosis. Ventilator weaning started with PRVC/SIMV-PS; progress as tolerated. Very likely will need bridging with NiPPV when extubated. Vancomycin discontinued. Continue Tamiflu. Transfusion of PRBCs today. Gastrenterology consulted (guiac positive). Anticoagulation? (AVR, non-STEMI). Continue Zosyn (changed to Q8)/Zithromax for now. Close monitoring of renal function. Objective - Vital Signs/Intake and Output Vital Signs (last 24 hours): Temp Pulse Resp BP Pulse Ox 99.1 F 102 H 17 112/64 99 11/30/18 08:00 11/30/18 08:00 11/30/18 08:00 11/30/18 08:00 11/30/18 08:00 Intake and Output: 11/29/18 11/30/18 23:59 11:59 Intake Total 923 364 Output Total 815 Balance 108 364 - Medications Medications: Current Medications Acetaminophen (Tylenol 325mg Tab) 650 mg PO Q6H PRN PRN Reason: Pain (1-10) Last Admin: 11/30/18 05:00 Dose: 650 mg Acetaminophen (Tylenol 325mg Tab) 650 mg PO Q6H PRN PRN Reason: Fever >100.4 F Last Admin: 11/28/18 06:07 Dose: 650 mg Albuterol/Ipratropium (Duoneb 3 Mg/0.5 Mg (3 Ml) Ud) 3 ml INH RQ4 [facility] Last Admin: 11/30/18 08:15 Dose: 3 ml Aspirin (Aspirin) 325 mg GT DAILY [facility] Last Admin: 11/29/18 08:04 Dose: 325 mg Atorvastatin Calcium (Lipitor) 40 mg PO DAILY [facility] Last Admin: 11/29/18 08:11 Dose: 40 mg Dimethicone (Proshield Plus Skin Protectant) 1 applic TOP Q8 [facility] Last Admin: 11/30/18 01:00 Dose: 1 applic Azithromycin 500 mg/ Sodium (Chloride) 250 mls @ 250 mls/hr IVPB DAILY [facility]; Protocol Last Admin: 11/29/18 08:15 Dose: 250 mls/hr Propofol (Diprivan) 1,000 mg in 100 mls @ 7.893 mls/hr IV .[id number] [facility]; Pr otocol Stop: 11/30/18 20:47 Last Admin: 11/29/18 21:06 Dose: 10 mcg/kg/min, 7.893 mls/hr Piperacillin Sod/Tazobactam (Sod 2.25 gm/ Sodium Chloride) 100 mls @ 100 mls/hr IVPB Q8 [facility]; Protocol Metoprolol Tartrate (Lopressor) 25 mg PO Q12 [facility] Last Admin: 11/29/18 20:44 Dose: 25 mg Nystatin (Nystop Topical Powder) 1 applic TOP TID [facility] Last Admin: 11/29/18 16:34 Dose: 1 applic Oseltamivir Phosphate (Tamiflu Cap) 75 mg PO BID [facility]; Protocol Last Admin: 11/29/18 16:34 Dose: 75 mg Pantoprazole Sodium (Protonix Inj) 40 mg IVP Q12 [facility] Last Admin: 11/29/18 20:44 Dose: 40 mg - Labs Labs: 11/30/18 08:00 11/30/18 05:00 PT 13.1 Seconds (9.8-13.1) 11/30/18 08:00 INR 1.2 11/30/18 08:00 APTT 31.4 Seconds (25.6-37.1) 11/30/18 08:00 Assessment and Plan (1) Respiratory failure with hypoxia and hypercapnia Status: Acute (2) Influenza A Status: Acute (3) Pneumonia and influenza Status: Acute (4) Morbid obesity Status: Chronic (5) COPD (chronic obstructive pulmonary disease) Status: Suspected
[2018-11-30] MEDS: Azithromycin 500 MG in Sodium Chloride 0.9% 250 ML IVPB SCH (09:33)
[2018-11-30] MEDS ORDERED: Iohexol 240 (50 ml) PO ONE (09:37)
[2018-11-30] MEDS ORDERED: Acetaminophen 650mg/20.3ml solution UD PO ONE (09:51)
--- NOTE | 2018-11-30 12:08 | CP.CCUPN ---
CCU Subjective - Physician Review Subjective (Free Text): Sedated on low dose Propofol, calm, and responsive to simple commands, at RASS of zero. Had melanotic BMs yesterday. Doing well and tolerated weaning efforts this AM by Pulm. She is positive 1.3L fluid balance over last 24H. 99F with Tmax 101.1F two days ago, SBP 90's, HR 90's, RR 19, SPo2 99% on 45% oxygen. ROS: No other pertinent negs or positives on 10+ system review- unobtainable due to sedation PMSFH: All other Nursing and physician documentation reviewed to date; no new pertinent info noted relevant to current medical problems. EXAM- HEENT: no icterus, no gaze preference NECK: No JVD visible given short neck and overall obesity, supple, carotids equal upstroke bilat/no bruit. Underlying ecchymoses and hematoma noted. CHEST: Upper chest ecchymoses noted extending form R shoulder across upper chest to left side; decreased BS at the bases, especially R base; few wheezes audible bilaterally. HEART: regular, distant, S1S2, no rubs or murmurs noted ABD: soft and obese, nontender, no guarding, no organomegaly, BS hypoactive. EXT: no leg edema, no calf tenderness or palpable cords, distal pulses intact and symmetrical. NEURO: sedated, + tone in all extremities. SKIN: no rashes, warm and dry LABS: WBC= 12.1 HGB= 6.8 PLTs= 155K INR = 1.2 7.38/50/92 Na= 144 K= 3.8 CL= 108 HCO3= 31 BUN/Cr= 64/2.3 BS= 103 CXR: (my interp)- ETT tip OK above tomas, bilateral scattered interstitial changes, overall improved from 2 days ago. IMPRESSION / MAJOR PROBLEMS NOW: 1. Acute hypercarbic resp failure 2 COPD Exacerbation, NSTEMI with Acute Pulm Edema 2. Influenza Viral resp infection, r/o superimposed bilateral bacterial PNA 3. GI bleed ( r/o stress gastritis versus other colitic disorder) and diffuse upper chest and neck ecchymoses (from previous R subclaviamn and R IJ vein venipuncture attempts during TLC placement) from warfarin coagulopathy. 4. SEDA, r/o ATN, versus pre-renal Azotemia 5. s /p AVR, with need for AC 6. Morbid obesity PLAN: 1. MV support, decreased FiO2, further weans when Hgb restored above 7. 2. Further AC on hold for now. 3. Sub-optimal ECHO study noted, Cardio eval. Lasix stopped, prn for now. 4. Empiric abx coverage: Zosyn renewed, Vanco on hold, Zithromycin ongoing. 5. Eventually still needs a PICC, not done last week with INR at 2.5, subsequently TLC placed into R IJV.
--- NOTE | 2018-11-30 13:10 | CP.PCM.PN ---
<Celestine Calhoun - Last Filed: 11/30/18 16:07> Subjective - Date & Time of Evaluation Date of Evaluation: 11/30/18 Time of Evaluation: 13:09 - Subjective Subjective: Celestine Calhoun DO PGY1 - Internal Medicine [employer] - Progress Note for Dr. Sutton - Cardiology Seen and examined at bedside No acute events overnight; oliguric Intubated/ Sedated Objective - Vital Signs/Intake and Output Vital Signs (last 24 hours): Temp Pulse Resp BP Pulse Ox 98.9 F 99 H 20 91/47 L 100 11/30/18 12:00 11/30/18 12:00 11/30/18 12:00 11/30/18 12:00 11/30/18 12:00 Intake and Output: 11/30/18 11/30/18 06:59 18:59 Intake Total 630 1260 Output Total 15 180 Balance 615 1080 - Medications Medications: Current Medications Acetaminophen (Tylenol 325mg Tab) 650 mg PO Q6H PRN PRN Reason: Pain (1-10) Last Admin: 11/30/18 05:00 Dose: 650 mg Acetaminophen (Tylenol 325mg Tab) 650 mg PO Q6H PRN PRN Reason: Fever >100.4 F Last Admin: 11/28/18 06:07 Dose: 650 mg Albuterol/Ipratropium (Duoneb 3 Mg/0.5 Mg (3 Ml) Ud) 3 ml INH RQ4 [facility] Last Admin: 11/30/18 11:41 Dose: 3 ml Aspirin (Aspirin) 325 mg GT DAILY [facility] Last Admin: 11/30/18 09:41 Dose: 325 mg Atorvastatin Calcium (Lipitor) 40 mg PO DAILY [facility] Last Admin: 11/30/18 09:30 Dose: 40 mg Dimethicone (Proshield Plus Skin Protectant) 1 applic TOP Q8 [facility] Last Admin: 11/30/18 09:32 Dose: 1 applic Azithromycin 500 mg/ Sodium (Chloride) 250 mls @ 250 mls/hr IVPB DAILY [facility]; Protocol Last Admin: 11/30/18 09:33 Dose: 250 mls/hr Propofol (Diprivan) 1,000 mg in 100 mls @ 7.893 mls/hr IV .[id number] [facility]; Protocol Stop: 11/30/18 20:47 Last Admin: 11/29/18 21:06 Dose: 10 mcg/kg/min, 7.893 mls/hr Piperacillin Sod/Tazobactam (Sod 2.25 gm/ Sodium Chloride) 100 mls @ 100 mls/hr IVPB Q8 [facility]; Protocol Last Admin: 11/30/18 09:35 Dose: 100 mls/hr Metoprolol Tartrate (Lopressor) 25 mg PO Q12 [facility] Last Admin: 11/30/18 09:31 Dose: 25 mg Nystatin (Nystop Topical Powder) 1 applic TOP TID [facility] Last Admin: 11/30/18 12:39 Dose: 1 applic Oseltamivir Phosphate (Tamiflu Cap) 75 mg PO BID [facility]; Protocol Last Admin: 11/30/18 09:33 Dose: 75 mg Pantoprazole Sodium (Protonix Inj) 40 mg IVP Q12 [facility] Last Admin: 11/30/18 09:33 Dose: 40 mg - Labs Labs: 11/30/18 08:00 11/30/18 05:00 PT 13.1 Seconds (9.8-13.1) 11/30/18 08:00 INR 1.2 11/30/18 08:00 APTT 31.4 Seconds (25.6-37.1) 11/30/18 08:00 - Constitutional Appears: Well, Non-toxic, No Acute Distress - Head Exam Head Exam: ATRAUMATIC, NORMOCEPHALIC - Respiratory Exam Respiratory Exam: Clear to Ausculation Bilateral, NORMAL BREATHING PATTERN - Cardiovascular Exam Cardiovascular Exam: RRR, +S1, +S2 Assessment and Plan (1) CAP (community acquired pneumonia) Status: Acute (2) CHF exacerbation Status: Acute (3) NSTEMI (non-ST elevated myocardial infarction) Status: Acute (4) Morbid obesity Status: Chronic (5) COPD (chronic obstructive pulmonary disease) Status: Suspected - Assessment and Plan (Free Text) Plan: Resume Heparin given hx of mechanical valve; Start ASA Start Low dose BB - Toprol XL 12.5 QD Transfuse as needed maintain Hb >9 <Isaak Sutton - Last Filed: 11/30/18 16:26> Objective - Vital Signs/Intake and Output Vital Signs (last 24 hours): Temp Pulse Resp BP Pulse Ox 98.9 F 99 H 21 105/52 L 95 11/30/18 14:13 11/30/18 15:00 11/30/18 15:00 11/30/18 15:00 11/30/18 15:00 Intake and Output: 11/30/18 11/30/18 06:59 18:59 Intake Total 630 2730 Output Total 15 180 Balance 615 2180 - Medications Medications: Current Medications Acetaminophen (Tylenol 325mg Tab) 650 mg PO Q6H PRN PRN Reason: Pain (1-10) Last Admin: 11/30/18 05:00 Dose: 650 mg Acetaminophen (Tylenol 325mg Tab) 650 mg PO Q6H PRN PRN Reason: Fever >100.4 F Last Admin: 11/28/18 06:07 Dose: 650 mg Albuterol/Ipratropium (Duoneb 3 Mg/0.5 Mg (3 Ml) Ud) 3 ml INH RQ4 [facility] Last Admin: 11/30/18 15:40 Dose: 3 ml Aspirin (Aspirin) 325 mg GT DAILY [facility] Last Admin: 11/30/18 09:41 Dose: 325 mg Atorvastatin Calcium (Lipitor) 40 mg PO DAILY [facility] Last Admin: 11/30/18 09:30 Dose: 40 mg Dimethicone (Proshield Plus Skin Protectant) 1 applic TOP Q8 [facility] Last Admin: 11/30/18 09:32 Dose: 1 applic Azithromycin 500 mg/ Sodium (Chloride) 250 mls @ 250 mls/hr IVPB DAILY [facility]; Protocol Last Admin: 11/30/18 09:33 Dose: 250 mls/hr Propofol (Diprivan) 1,000 mg in 100 mls @ 7.893 mls/hr IV .[id number] [facility]; Protocol Stop: 11/30/18 20:47 Last Admin: 11/29/18 21:06 Dose: 10 mcg/kg/min, 7.893 mls/hr Piperacillin Sod/Tazobactam (Sod 2.25 gm/ Sodium Chloride) 100 mls @ 100 mls/hr IVPB Q8 [facility]; Protocol Last Admin: 11/30/18 09:35 Dose: 100 mls/hr Heparin Sodium/Dextrose (Heparin 25,000 Units/250ml In D5w) 25,000 units in 250 mls @ 23 mls/hr IV .[id number] [facility]; Protocol Last Admin: 11/30/18 15:12 Dose: 23 mls/hr Metoprolol Succinate (Toprol Xl) 12.5 mg PO DAILY [facility] Metoprolol Tartrate (Lopressor) 25 mg PO Q12 [facility] Last Admin: 11/30/18 09:31 Dose: 25 mg Nystatin (Nystop Topical Powder) 1 applic TOP TID [facility] Last Admin: 11/30/18 12:39 Dose: 1 applic Oseltamivir Phosphate (Tamiflu Cap) 75 mg PO BID [facility]; Protocol Last Admin: 11/30/18 09:33 Dose: 75 mg Pantoprazole Sodium (Protonix Inj) 40 mg IVP Q12 [facility] Last Admin: 11/30/18 09:33 Dose: 40 mg - Labs Labs: 11/30/18 08:00 11/30/18 05:00 PT 13.1 Seconds (9.8-13.1) 11/30/18 08:00 INR 1.2 11/30/18 08:00 APTT 31.4 Seconds (25.6-37.1) 11/30/18 08:00 Assessment and Plan (1) NSTEMI (non-ST elevated myocardial infarction) Status: Acute (2) CAP (community acquired pneumonia) Status: Acute (3) CHF exacerbation Status: Acute (4) Respiratory distress Status: Acute (5) Respiratory failure with hypoxia and hypercapnia Status: Acute (6) History of aortic valve replacement Status: Chronic (7) Morbid obesity Status: Chronic (8) COPD (chronic obstructive pulmonary disease) Status: Suspected Attending/Attestation - Attestation I have personally seen and examined this patient.: Yes I have fully participated in the care of the patient.: Yes I have reviewed all pertinent clinical information, including history, physical exam and plan: Yes Notes (Text): 11/30/18 16:26 Acute drop in Hgb noted - etiology ? GI BLeed must maintain on anticoagulation due to mechanical aortic valve cont asa, bb transfuse to keep hgb > 9
[2018-11-30] MEDS ORDERED: Heparin 25,000units in D5W 25,000 UNITS/250 ML BAG IV SCH (13:30)
[2018-11-30 13:50] LABS: SQUAMOUS EPITHIAL 7 /hpf (0-5); URINE AMORPHOUS SEDIMENT RARE /ul (<OCC); URINE BILIRUBIN NEGATIVE (NEGATIVE); URINE BLOOD MODERATE (NEGATIVE); URINE CLARITY TURBID (Clear); URINE COLOR YELLOW (YELLOW); URINE GLUCOSE (UA) NEG (NEGATIVE); URINE LEUKOCYTE ESTERASE MOD Leu/uL (Negative); URINE PROTEIN 30 mg/dL (NEGATIVE); URINE UROBILINOGEN 0.2-1.0 mg/dL (0.2-1.0)
[2018-11-30 14:34] LABS: CREATININE, RANDOM URINE 73.6 mg/dL
--- NOTE | 2018-11-30 17:52 | CP.PCM.PN ---
Subjective - Date & Time of Evaluation Date of Evaluation: 11/30/18 Time of Evaluation: 17:53 - Subjective Subjective: No significant changes still intubated sedated H/H decreasing in Post transfusion Continue supportive rx Consults appreciated. Objective - Vital Signs/Intake and Output Vital Signs (last 24 hours): Temp Pulse Resp BP Pulse Ox 98.3 F 91 H 24 101/59 L 100 11/30/18 16:51 11/30/18 16:51 11/30/18 16:51 11/30/18 16:51 11/30/18 16:00 Intake and Output: 11/30/18 11/30/18 11:59 23:59 Intake Total 1199 2439 Output Total 180 100 Balance 1019 2339 - Medications Medications: Current Medications Acetaminophen (Tylenol 325mg Tab) 650 mg PO Q6H PRN PRN Reason: Pain (1-10) Last Admin: 11/30/18 05:00 Dose: 650 mg Acetaminophen (Tylenol 325mg Tab) 650 mg PO Q6H PRN PRN Reason: Fever >100.4 F Last Admin: 11/28/18 06:07 Dose: 650 mg Albuterol/Ipratropium (Duoneb 3 Mg/0.5 Mg (3 Ml) Ud) 3 ml INH RQ4 [facility] Last Admin: 11/30/18 15:40 Dose: 3 ml Aspirin (Aspirin) 325 mg GT DAILY [facility] Last Admin: 11/30/18 09:41 Dose: 325 mg Atorvastatin Calcium (Lipitor) 40 mg PO DAILY [facility] Last Admin: 11/30/18 09:30 Dose: 40 mg Dimethicone (Proshield Plus Skin Protectant) 1 applic TOP Q8 [facility] Last Admin: 11/30/18 16:29 Dose: 1 applic Azithromycin 500 mg/ Sodium (Chloride) 250 mls @ 250 mls/hr IVPB DAILY [facility]; Protocol Last Admin: 11/30/18 09:33 Dose: 250 mls/hr Propofol (Diprivan) 1,000 mg in 100 mls @ 7.893 mls/hr IV .[id number] [facility]; Protocol Stop: 11/30/18 20:47 Last Admin: 11/29/18 21:06 Dose: 10 mcg/kg/min, 7.893 mls/hr Piperacillin Sod/Tazobactam (Sod 2.25 gm/ Sodium Chloride) 100 mls @ 100 mls/hr IVPB Q8 [facility]; Protocol Last Admin: 11/30/18 16:30 Dose: 100 mls/hr Heparin Sodium/Dextrose (Heparin 25,000 Units/250ml In D5w) 25,000 units in 250 mls @ 23 mls/hr IV .[id number] [facility]; Protocol Last Admin: 11/30/18 15:12 Dose: 23 mls/hr Metoprolol Succinate (Toprol Xl) 12.5 mg PO DAILY [facility] Metoprolol Tartrate (Lopressor) 25 mg PO Q12 [facility] Last Admin: 11/30/18 09:31 Dose: 25 mg Nystatin (Nystop Topical Powder) 1 applic TOP TID [facility] Last Admin: 11/30/18 16:27 Dose: 1 applic Oseltamivir Phosphate (Tamiflu Cap) 75 mg PO BID [facility]; Protocol Last Admin: 11/30/18 16:27 Dose: 75 mg Pantoprazole Sodium (Protonix Inj) 40 mg IVP Q12 [facility] Last Admin: 11/30/18 09:33 Dose: 40 mg - Labs Labs: 11/30/18 08:00 11/30/18 05:00 PT 13.1 Seconds (9.8-13.1) 11/30/18 08:00 INR 1.2 11/30/18 08:00 APTT 31.4 Seconds (25.6-37.1) 11/30/18 08:00 - Constitutional Appears: Chronically Ill - Head Exam Head Exam: ATRAUMATIC, NORMAL INSPECTION, NORMOCEPHALIC - Eye Exam Eye Exam: Normal appearance - Neck Exam Neck Exam: Normal Inspection - Respiratory Exam Respiratory Exam: Decreased Breath Sounds - Cardiovascular Exam Cardiovascular Exam: REGULAR RHYTHM, +S1, +S2 - GI/Abdominal Exam GI & Abdominal Exam: Soft - Extremities Exam Extremities Exam: Normal Inspection - Neurological Exam Additional comments: sedated - Skin Skin Exam: Warm Assessment and Plan (1) CAP (community acquired pneumonia) Status: Acute (2) CHF exacerbation Status: Acute (3) DVT prophylaxis Status: Acute (4) History of aortic valve replacement Status: Chronic (5) Influenza A Status: Acute (6) NSTEMI (non-ST elevated myocardial infarction) Status: Acute (7) Pneumonia and influenza Status: Acute (8) Respiratory distress Status: Acute (9) Respiratory failure with hypoxia and hypercapnia Status: Acute (10) Morbid obesity Status: Chronic (11) COPD (chronic obstructive pulmonary disease) Status: Suspected (12) Myocardial ischemia Status: Acute - Assessment and Plan (Free Text) Plan: As above
[2018-11-30] MEDS: Propofol 10 mg/ml 1,000 MG/100 ML VIAL IV SCH (18:19)
[2018-11-30] MEDS: Metoprolol Succinate 25 mg XL Tab PO SCH (18:20)
[2018-11-30 20:59] LABS: HEMOGLOBIN 7.6 g/dL (12.0-16.0); MEAN CELL VOLUME 92.7 fl (81.0-99.0); MEAN CORPUSCULAR HEMOGLOBIN 30.9 pg (27.0-31.0); MEAN CORPUSCULAR HGB CONC 33.4 g/dL (33.0-37.0); RBC 2.46 Mil/uL (3.80-5.20); RED CELL DISTRIBUTION WIDTH 14.9 % (11.5-14.5); WHITE BLOOD COUNT 14.7 K/uL (4.8-10.8)
[2018-12-01] MEDS: Proshield Plus GEL TOP SCH ×3 (01:39→16:28)
[2018-12-01] MEDS: Albuterol-Ipratrop 3 mg / 0.5 (3 ml) UD INH SCH ×4 (03:21→19:41)
[2018-12-01 05:18] LABS: ABG ALLEN TEST YES; ARTERIAL BLOOD GAS HCO3 23.1 mmol/L (21-28); ARTERIAL BLOOD GAS O2 SAT 97.8 % (95-98); ARTERIAL BLOOD GAS PCO2 49 mm/Hg (35-45); ARTERIAL BLOOD GAS PH 7.31 (7.35-7.45); ARTERIAL BLOOD GAS PO2 64 mm/Hg (80-100); ARTERIAL BLOOD GAS TCO2 26.2 mmol/L (22-28)
--- NOTE | 2018-12-01 05:23 | CON ---
DATE: 11/30/2018 [facility] NEPHROLOGY CONSULTATION HISTORY OF PRESENT ILLNESS: The patient is a 58-year-old female with past medical history of hypertension, morbid obesity, CAD, CHF status post mechanical aortic valve replacement, on Coumadin and possible COPD, presented with two days of fever as well as cough and shortness of breath. Nephrology is now being consulted for acute renal failure. History is taken from patient record and staff as the patient is currently intubated. The patient was found to be flu positive, was initially placed on BiPAP with some clinical improvement. A chest x-ray that was reportedly demonstrating bilateral infiltrates and pulmonary vascular congestion. The patient was admitted to ICU for hypoxemic respiratory failure. The patient was intubated in the morning after presentation due to lethargy and hypercapnia as well as presence of NSTEMI. She was placed on standing dose of IV diuretics with Lasix 40 mg daily. Also placed on broad-spectrum antibiotics with vancomycin and Zosyn. The patient was noted to have melanotic stools and therefore had therapeutic anticoagulation held. The patient noted to have significantly decreased urine output yesterday. PAST MEDICAL HISTORY: As above. SOCIAL HISTORY: Current smoker. FAMILY HISTORY: Unavailable. REVIEW OF SYSTEMS: Unavailable. PHYSICAL EXAMINATION: VITAL SIGNS: Blood pressure 86/46, heart rate 100, respirations 20, temperature 99, O2 sat 95% on 40% FiO2 via mechanical ventilation. GENERAL: Patient is intubated, sedated. HEENT: Large neck circumference, ecchymosis noted, unable to assess JVD. RESPIRATORY: Some mild wheezes. No obvious rhonchi or rales. CARDIOVASCULAR: Heart sounds muffled, unable to perceive any murmurs or clicks. GASTROINTESTINAL: Abdomen is soft, lower quadrant tenderness on palpation. GENITOURINARY: No overt bladder distension. EXTREMITIES: No significant leg edema. SKIN: Warm, no cyanosis. NEUROLOGIC: Reacts to tactile stimuli. LABORATORY DATA: This morning CBC: WBC 13.2, hemoglobin 6.7, hematocrit 21, platelets 152. Chemistry panel: Sodium 144, potassium 3.8, chloride 108, bicarb 31, BUN 64, creatinine 2.3 increased from 0.6 on presentation, glucose 103, calcium 7.5. AST 78, ALT 40, albumin 2.5. ABG from this morning, pH 7.38, pCO2 50, pO2 92. Urine studies: UA 30 mg/dL protein, moderate leukocyte esterase, 25 rbc's, 28 wbc's per high-power filed, many yeast. Urine sodium 25, urine creatinine 73. Vancomycin trough this morning 18.5. Abdominal pelvis CT images reviewed, not showing any hydronephrosis. Chest x-ray showing what maybe pulmonary edema. ASSESSMENT AND PLAN: 1. Acute renal failure, oliguric renal failure in the setting of hypotension and ongoing gastrointestinal blood loss. Urine indices showing low fractional excretion of sodium and therefore may still be in prerenal phase; however, cannot rule out progression to acute tubular necrosis, especially with persistent hypotension over the past day. Relatively stable electrolyte status. Relatively low fraction of inspired oxygen requirement despite chest x-rays findings. -Agree with holding further diuresis. -Agree with intravascular volume repletion with packed red blood cells. -May benefit from intravenous fluids, recommend normal saline as 75 mL per hour. -Agree with holding further vancomycin doses until trough level is below 15. -Avoid nephrotoxic agents (nonsteroidal anti-inflammatory drugs, intravascular dye). 2- Anemia - Melanotic stools; s/p 2 u prbc today; monitor hgb closely; 3- CHF - Per history though current echo was poor study; nevertheless, since FIO2 requirement is low, would advise against further diuresis for now; Thank you for this referral. We will be following closely. Chico Watson MD RICHARD
[2018-12-01 05:41] LABS: HEMOGLOBIN 7.2 g/dL (12.0-16.0); MEAN CELL VOLUME 93.2 fl (81.0-99.0); MEAN CORPUSCULAR HEMOGLOBIN 30.9 pg (27.0-31.0); MEAN CORPUSCULAR HGB CONC 33.1 g/dL (33.0-37.0); RBC 2.35 Mil/uL (3.80-5.20); RED CELL DISTRIBUTION WIDTH 14.7 % (11.5-14.5); WHITE BLOOD COUNT 13.3 K/uL (4.8-10.8)
[2018-12-01] MEDS: Propofol 10 mg/ml 1,000 MG/100 ML VIAL IV SCH ×4 (05:53→20:21)
[2018-12-01 05:58] LABS: CALCIUM 7.4 mg/dL (8.4-10.2)
[2018-12-01] MEDS ORDERED: Heparin 25,000units in D5W 25,000 UNITS/250 ML BAG IV SCH ×4 (06:15→17:30)
--- NOTE | 2018-12-01 09:20 | CP.PCM.PN ---
<Celestine Calhoun - Last Filed: 12/01/18 18:03> Subjective - Date & Time of Evaluation Date of Evaluation: 12/01/18 Time of Evaluation: 18:03 - Subjective Subjective: Celestine Calhoun DO PGY1 - Internal Medicine [employer] - Cardiology Note for Dr. Sutton Patient vital signs reviewed, and continues to show hypertension. Afebrile overnight, patient chemistries appear to be improving Satting 100% on 40% FIO2. Nursing notes reviewed, no acute events overnight. Patient shows Hb drop 7.6 to 7.2; and melanotic stools as per nursing notes. Seen and examined at bedside this afternoon in ICU - Intubated + Sedated Objective - Vital Signs/Intake and Output Vital Signs (last 24 hours): Temp Pulse Resp BP Pulse Ox 99.9 F H 90 21 96/53 L 100 12/01/18 08:00 12/01/18 08:00 12/01/18 08:00 12/01/18 08:00 12/01/18 08:00 Intake and Output: 12/01/18 12/01/18 06:59 18:59 Intake Total 1033 150 Output Total 500 Balance 533 150 - Medications Medications: Current Medications Acetaminophen (Tylenol 325mg Tab) 650 mg PO Q6H PRN PRN Reason: Pain (1-10) Last Admin: 11/30/18 05:00 Dose: 650 mg Acetaminophen (Tylenol 325mg Tab) 650 mg PO Q6H PRN PRN Reason: Fever >100.4 F Last Admin: 11/28/18 06:07 Dose: 650 mg Albuterol/Ipratropium (Duoneb 3 Mg/0.5 Mg (3 Ml) Ud) 3 ml INH RQ4 [facility] Last Admin: 12/01/18 07:28 Dose: 3 ml Aspirin (Aspirin) 325 mg GT DAILY [facility] Last Admin: 11/30/18 09:41 Dose: 325 mg Atorvastatin Calcium (Lipitor) 40 mg PO DAILY [facility] Last Admin: 11/30/18 09:30 Dose: 40 mg Dimethicone (Proshield Plus Skin Protectant) 1 applic TOP Q8 [facility] Last Admin: 12/01/18 01:39 Dose: 1 applic Piperacillin Sod/Tazobactam (Sod 2.25 gm/ Sodium Chloride) 100 mls @ 100 mls/hr IVPB Q8 [facility]; Protocol Last Admin: 12/01/18 01:39 Dose: 100 mls/hr Propofol (Diprivan) 1,000 mg in 100 mls @ 11.839 mls/hr IV .Q8H27M [facility]; Protocol Stop: 12/01/18 22:11 Last Admin: 12/01/18 05:54 Dose: 15 mcg/kg/min, 11.839 mls/hr Heparin Sodium/Dextrose (Heparin 25,000 Units/250ml In D5w) 25,000 units in 250 mls @ 16 mls/hr IV .[id number] [facility]; Protocol Last Admin: 12/01/18 07:05 Dose: 16 mls/hr Metoprolol Succinate (Toprol Xl) 12.5 mg PO DAILY [facility] Last Admin: 11/30/18 18:20 Dose: Not Given Metoprolol Tartrate (Lopressor) 25 mg PO Q12 [facility] Last Admin: 11/30/18 20:55 Dose: 25 mg Nystatin (Nystop Topical Powder) 1 applic TOP TID [facility] Last Admin: 11/30/18 16:27 Dose: 1 applic Oseltamivir Phosphate (Tamiflu Cap) 75 mg PO BID [facility]; Protocol Last Admin: 11/30/18 16:27 Dose: 75 mg Pantoprazole Sodium (Protonix Inj) 40 mg IVP Q12 [facility] Last Admin: 11/30/18 20:57 Dose: 40 mg - Labs Labs: 12/01/18 05:00 12/01/18 05:00 PT 13.1 Seconds (9.8-13.1) 11/30/18 08:00 INR 1.2 11/30/18 08:00 APTT 137.7 Seconds (25.6-37.1) H 12/01/18 05:00 - Constitutional Appears: Other (Intubated + Sedated ) - Head Exam Head Exam: ATRAUMATIC, NORMOCEPHALIC - ENT Exam Additional comments: ET tube in place - Neck Exam Additional comments: Diffuse ecchymosis in upper thorax/ chest - Cardiovascular Exam Cardiovascular Exam: RRR, +S1, +S2 - GI/Abdominal Exam Additional comments: Obese - Rectal Exam Additional comments: Melanotic stools in flex seal tube/bag - Neurological Exam Neurological Exam: absent: Alert, Awake Assessment and Plan (1) CAP (community acquired pneumonia) Status: Acute (2) CHF exacerbation Status: Acute (3) NSTEMI (non-ST elevated myocardial infarction) Status: Acute (4) Morbid obesity Status: Chronic (5) COPD (chronic obstructive pulmonary disease) Status: Suspected - Assessment and Plan (Free Text) Plan: Recommend continuing heparin drip in setting of mechanical valve; patient continues to be oliguric in 24 hour window. Stop ASA Can resume Heparin at 1200 units/hr - PT/PTT goal approx 40-50 Metoprolol 12.5 Q12 Transfuse as needed; Maintain Hb >9 <Isaak Sutton - Last Filed: 12/03/18 18:44> Objective - Vital Signs/Intake and Output Vital Signs (last 24 hours): Temp Pulse Resp BP Pulse Ox 98.6 F 101 H 22 107/45 L 96 12/03/18 16:00 12/03/18 18:00 12/03/18 18:00 12/03/18 18:00 12/03/18 18:00 Intake and Output: 12/03/18 12/03/18 06:59 18:59 Intake Total 1937 1755 Output Total 725 750 Balance 1212 1005 - Medications Medications: Current Medications Acetaminophen (Tylenol 325mg Tab) 650 mg PO Q6H PRN PRN Reason: Pain (1-10) Last Admin: 12/01/18 11:20 Dose: 650 mg Acetaminophen (Tylenol 325mg Tab) 650 mg PO Q6H PRN PRN Reason: Fever >100.4 F Last Admin: 11/28/18 06:07 Dose: 650 mg Acetaminophen (Tylenol 160mg/5ml Oral Soln) 160 mg PO ONCE PRN PRN Reason: Flu symptoms Albuterol/Ipratropium (Duoneb 3 Mg/0.5 Mg (3 Ml) Ud) 3 ml INH RQ6 [facility] Last Admin: 12/03/18 13:28 Dose: 3 ml Atorvastatin Calcium (Lipitor) 40 mg PO DAILY [facility] Last Admin: 12/03/18 08:21 Dose: 40 mg Dimethicone (Proshield Plus Skin Protectant) 1 applic TOP Q8 [facility] Last Admin: 12/03/18 17:27 Dose: 1 applic Azithromycin 500 mg/ Sodium (Chloride) 250 mls @ 250 mls/hr IVPB DAILY [facility]; Protocol Last Admin: 12/03/18 08:30 Dose: 250 mls/hr Propofol (Diprivan) 1,000 mg in 100 mls @ 19.211 mls/hr IV .Q5H13M [facility]; Protocol Stop: 12/03/18 23:51 Last Titration: 12/03/18 07:30 Dose: 0 mcg/kg/min, 0 mls/hr Furosemide 100 mg/ Sodium (Chloride) 100 mls @ 10 mls/hr IV .Q10H [facility]; Protocol Last Admin: 12/03/18 13:30 Dose: 10 mls/hr Metoprolol Tartrate (Lopressor) 12.5 mg PO Q12 [facility] Last Admin: 12/03/18 08:28 Dose: 12.5 mg Nystatin (Nystop Topical Powder) 1 applic TOP TID [facility] Last Admin: 12/03/18 17:27 Dose: 1 applic Pantoprazole Sodium (Protonix Inj) 40 mg IVP Q12 [facility] Last Admin: 12/03/18 08:23 Dose: 40 mg - Labs Labs: 12/03/18 05:40 12/03/18 05:40 PT 11.6 Seconds (9.8-13.1) 12/02/18 21:15 INR 1.0 12/02/18 21:15 APTT 43.2 Seconds (25.6-37.1) H 12/03/18 05:40 Assessment and Plan (1) NSTEMI (non-ST elevated myocardial infarction) Status: Acute (2) CAP (community acquired pneumonia) Status: Acute (3) CHF exacerbation Status: Acute (4) Respiratory distress Status: Acute (5) Respiratory failure with hypoxia and hypercapnia Status: Acute (6) History of aortic valve replacement Status: Chronic (7) Morbid obesity Status: Chronic (8) COPD (chronic obstructive pulmonary disease) Status: Suspected Attending/Attestation - Attestation I have personally seen and examined this patient.: Yes I have fully participated in the care of the patient.: Yes I have reviewed all pertinent clinical information, including history, physical exam and plan: Yes
[2018-12-01] MEDS: Azithromycin 500 MG in Sodium Chloride 0.9% 250 ML IVPB SCH ×2 (09:50→10:14)
[2018-12-01] MEDS: Metoprolol Succinate 25 mg XL Tab PO SCH (09:50)
--- NOTE | 2018-12-01 09:57 | CP.PCM.PN ---
Subjective - Date & Time of Evaluation Date of Evaluation: 12/01/18 Time of Evaluation: 09:56 - Subjective Subjective: Seen on rounds in ICU. Remains orally intubated and mechanically ventilated. Sedated using propafol continuous infusion. Transfused two units of PRBCs yesterday. Hemoglobin this morning reported at 7.2GM. WBC 13.3, plts 172. Renal function continues to decline, BUN/creat 70/3.7. Chest x-ray this morning with bilateral patchy infiltrates. CT chest yesterday showed diffuse ground glass infiltrates. Oxygenation remains satisfactory on present vent settings. Peak airways pressure at 33cm, plateau 30cm. Pressure support 15 + 5 PEEP results in Vt .3-.4L. Sedated, bed rotation on. Large area of ecchymosis right shoulder and anterior/posterior chest, base of neck. ++ dependant edema of trunk, no cyanosis, extremities remain warm to touch. ETT in good position based on CXR, thin blood tinged secretions. Breath sounds are fairly well heard in both lungs equally. Anteriorly there are rare expiratory wheezes and rhonchi. Posteriorly there are dry rales in both lower lobes. Heart sounds aree distant and rhythm is regular. Abdomen is obese with good bowel sounds heard. Adequate ventilation on present vent settings. No further weaning expected today. Azithromycin renewed today, Zosyn to continue. Vancomycin has been discontinued. Follow cardiology and renal recommendations. Continue transfusions as needed. Anticoagulation necessary because of AVR. Reduced aerosol frequency to Q6H. Discussed with grant writer. Objective - Vital Signs/Intake and Output Vital Signs (last 24 hours): Temp Pulse Resp BP Pulse Ox 99.9 F H 91 H 22 80/39 L 100 12/01/18 08:00 12/01/18 09:50 12/01/18 09:00 12/01/18 09:50 12/01/18 09:00 Intake and Output: 11/30/18 12/01/18 23:59 11:59 Intake Total 2808 814 Output Total 200 500 Balance 2608 314 - Medications Medications: Current Medications Acetaminophen (Tylenol 325mg Tab) 650 mg PO Q6H PRN PRN Reason: Pain (1-10) Last Admin: 11/30/18 05:00 Dose: 650 mg Acetaminophen (Tylenol 325mg Tab) 650 mg PO Q6H PRN PRN Reason: Fever >100.4 F Last Admin: 11/28/18 06:07 Dose: 650 mg Albuterol/Ipratropium (Duoneb 3 Mg/0.5 Mg (3 Ml) Ud) 3 ml INH RQ6 [facility] Aspirin (Aspirin) 325 mg GT DAILY [facility] Last Admin: 12/01/18 09:48 Dose: 325 mg Atorvastatin Calcium (Lipitor) 40 mg PO DAILY [facility] Last Admin: 12/01/18 09:44 Dose: 40 mg Dimethicone (Proshield Plus Skin Protectant) 1 applic TOP Q8 [facility] Last Admin: 12/01/18 09:45 Dose: 1 applic Piperacillin Sod/Tazobactam (Sod 2.25 gm/ Sodium Chloride) 100 mls @ 100 mls/hr IVPB Q8 [facility]; Protocol Last Admin: 12/01/18 09:52 Dose: 100 mls/hr Propofol (Diprivan) 1,000 mg in 100 mls @ 11.839 mls/hr IV .[id number] [facility]; Protocol Stop: 12/01/18 22:11 Last Admin: 12/01/18 05:54 Dose: 15 mcg/kg/min, 11.839 mls/hr Heparin Sodium/Dextrose (Heparin 25,000 Units/250ml In D5w) 25,000 units in 250 mls @ 16 mls/hr IV .[id number] [facility]; Protocol Last Admin: 12/01/18 07:05 Dose: 16 mls/hr Azithromycin 500 mg/ Sodium (Chloride) 250 mls @ 250 mls/hr IVPB DAILY [facility]; Protocol Metoprolol Succinate (Toprol Xl) 12.5 mg PO DAILY [facility] Last Admin: 12/01/18 09:50 Dose: Not Given Metoprolol Tartrate (Lopressor) 25 mg PO Q12 [facility] Last Admin: 12/01/18 09:47 Dose: Not Given Nystatin (Nystop Topical Powder) 1 applic TOP TID [facility] Last Admin: 12/01/18 09:44 Dose: 1 applic Oseltamivir Phosphate (Tamiflu Cap) 75 mg PO BID [facility]; Protocol Last Admin: 12/01/18 09:49 Dose: 75 mg Pantoprazole Sodium (Protonix Inj) 40 mg IVP Q12 [facility] Last Admin: 12/01/18 09:45 Dose: 40 mg - Labs Labs: 12/01/18 05:00 12/01/18 05:00 PT 13.1 Seconds (9.8-13.1) 11/30/18 08:00 INR 1.2 11/30/18 08:00 APTT 137.7 Seconds (25.6-37.1) H 12/01/18 05:00 Assessment and Plan (1) Respiratory failure with hypoxia and hypercapnia Status: Acute (2) Influenza A Status: Acute (3) Pneumonia and influenza Status: Acute (4) Morbid obesity Status: Chronic (5) COPD (chronic obstructive pulmonary disease) Status: Suspected
--- NOTE | 2018-12-01 10:06 | RAD ---
Date of service: 12/01/2018 HISTORY: respiratory failure COMPARISON: 11/30/2018 FINDINGS: LUNGS: Examination technically limited. No definite infiltrate. PLEURA: No significant pleural effusion identified, no pneumothorax apparent. CARDIOVASCULAR: Normal heart size. ET tube and NG tube unchanged. Right IJ central venous catheter unchanged. Sternotomy wires. No pulmonary vascular congestion. No atherosclerotic calcification of the thoracic aorta. OSSEOUS STRUCTURES: No significant abnormalities. VISUALIZED UPPER ABDOMEN: Normal. OTHER FINDINGS: None. IMPRESSION: Limited examination. No acute infiltrate.
--- NOTE | 2018-12-01 10:23 | CP.PCM.PN ---
Subjective - Date & Time of Evaluation Date of Evaluation: 12/01/18 Time of Evaluation: 10:22 - Subjective Subjective: no overnight events Objective - Vital Signs/Intake and Output Vital Signs (last 24 hours): Temp Pulse Resp BP Pulse Ox 99.9 F H 92 H 18 90/51 L 98 12/01/18 08:00 12/01/18 10:00 12/01/18 10:00 12/01/18 10:00 12/01/18 10:00 Intake and Output: 12/01/18 12/01/18 06:59 18:59 Intake Total 1033 500 Output Total 500 Balance 533 500 - Medications Medications: Current Medications Acetaminophen (Tylenol 325mg Tab) 650 mg PO Q6H PRN PRN Reason: Pain (1-10) Last Admin: 11/30/18 05:00 Dose: 650 mg Acetaminophen (Tylenol 325mg Tab) 650 mg PO Q6H PRN PRN Reason: Fever >100.4 F Last Admin: 11/28/18 06:07 Dose: 650 mg Albuterol/Ipratropium (Duoneb 3 Mg/0.5 Mg (3 Ml) Ud) 3 ml INH RQ6 [facility] Aspirin (Aspirin) 325 mg GT DAILY [facility] Last Admin: 12/01/18 09:48 Dose: 325 mg Atorvastatin Calcium (Lipitor) 40 mg PO DAILY [facility] Last Admin: 12/01/18 09:44 Dose: 40 mg Dimethicone (Proshield Plus Skin Protectant) 1 applic TOP Q8 [facility] Last Admin: 12/01/18 09:45 Dose: 1 applic Piperacillin Sod/Tazobactam (Sod 2.25 gm/ Sodium Chloride) 100 mls @ 100 mls/hr IVPB Q8 [facility]; Protocol Last Admin: 12/01/18 09:52 Dose: 100 mls/hr Propofol (Diprivan) 1,000 mg in 100 mls @ 11.839 mls/hr IV .Q8H27M [facility]; Protocol Stop: 12/01/18 22:11 Last Admin: 12/01/18 05:54 Dose: 15 mcg/kg/min, 11.839 mls/hr Heparin Sodium/Dextrose (Heparin 25,000 Units/250ml In D5w) 25,000 units in 250 mls @ 16 mls/hr IV .[id number] [facility]; Protocol Last Admin: 12/01/18 07:05 Dose: 16 mls/hr Azithromycin 500 mg/ Sodium (Chloride) 250 mls @ 250 mls/hr IVPB DAILY [facility]; Protocol Last Admin: 12/01/18 10:14 Dose: Not Given Metoprolol Succinate (Toprol Xl) 12.5 mg PO DAILY [facility] Last Admin: 12/01/18 09:50 Dose: Not Given Metoprolol Tartrate (Lopressor) 25 mg PO Q12 [facility] Last Admin: 12/01/18 09:47 Dose: Not Given Nystatin (Nystop Topical Powder) 1 applic TOP TID [facility] Last Admin: 12/01/18 09:44 Dose: 1 applic Oseltamivir Phosphate (Tamiflu Cap) 75 mg PO BID [facility]; Protocol Last Admin: 12/01/18 09:49 Dose: 75 mg Pantoprazole Sodium (Protonix Inj) 40 mg IVP Q12 [facility] Last Admin: 12/01/18 09:45 Dose: 40 mg - Labs Labs: 12/01/18 05:00 12/01/18 05:00 PT 13.1 Seconds (9.8-13.1) 11/30/18 08:00 INR 1.2 11/30/18 08:00 APTT 137.7 Seconds (25.6-37.1) H 12/01/18 05:00 - Head Exam Head Exam: NORMOCEPHALIC - Neck Exam Additional comments: ecchymoses - Respiratory Exam Respiratory Exam: Rhonchi - Cardiovascular Exam Cardiovascular Exam: REGULAR RHYTHM - GI/Abdominal Exam GI & Abdominal Exam: Distended, Soft, Normal Bowel Sounds Assessment and Plan - Assessment and Plan (Free Text) Assessment: 58 yo female with melena cardio, ID, pulm, Heme input appreciated CT pending PPI iv transfuse PRBC prn prognosis guarded
[2018-12-01] MEDS ORDERED: Acetaminophen 160 mg/5 ml UD PO PRN (10:36)
--- NOTE | 2018-12-01 11:22 | CT ---
Date of service: 11/30/2018 PROCEDURE: CT Chest without contrast HISTORY: pneumonia COMPARISON: Portable chest 11/30/2018. TECHNIQUE: Contiguous axial images were obtained through the chest without intravenous contrast enhancement. Sagittal and coronal reconstructions were performed. Radiation dose: Total exam DLP = 524.08 mGy-cm. This CT exam was performed using one or more of the following dose reduction techniques: Automated exposure control, adjustment of the mA and/or kV according to patient size, and/or use of iterative reconstruction technique. FINDINGS: LUNGS: Multifocal extensive ground-glass as well as alveolar infiltrates are identified affecting the bilateral upper and lower lobes with the right middle lobe appearing largely atelectatic, particularly the lateral subsegment. There is questionable narrowing of the middle lobe bronchus with an underlying lesion is not completely excluded. Central airways otherwise appear adequately patent throughout. A distinct mass is not clearly identified but is not excluded either. Triangular density at the right lower lobe in image 55 series 3 is felt to likely be a function of the current alveolar process rather than mass but follow-up chest CT is advised to exclude potential mass here. MEDIASTINUM: Calcified aortic atherosclerosis appreciated. The ascending thoracic aorta is dilated to 4.9 cm tapering to a normal caliber of 2.8 cm at the mid arch level. Calcifications are identified at the aortic valve with the patient also status post CABG including median sternotomy. There [id number] cardiomegaly with occasional calcified coronary artery calcifications and multiple coronary arteries. Main pulmonary artery unremarkable. No vascular congestion. Shotty preaortic and paratracheal lymph nodes are identified without prominent enlargement. Chest is remarkable for endotracheal intubation terminating 3.5 cm above the tomas. The esophagus is questionably thick wall distally versus hiatal hernia. Calcified atherosclerotic changes seen related to the thoracic aorta. PLEURA: No pleural fluid. No pneumothorax. BONES: No fracture. No destructive lesion. UPPER ABDOMEN: Patient status post LAP band deployment. Nasogastric tube is identified placed as well, terminating in the gastric antrum. . OTHER FINDINGS: None. IMPRESSION: 1. Mixed interstitial and alveolar infiltrates are identified including ground-glass opacity suggestive of possible atypical pneumonia or inflammatory process. No significant lymphadenopathy appreciated at this time. Collapse of lateral segment right middle lobe with underlying potential airway narrowing or stricture not excluded. 2. Questionable nodule versus focal infiltrate a small subsegment of the right lower lobe as discussed above. Follow-up CT following therapy advised. 3. Ascending thoracic aorta measures up to 4.9 cm greatest dimension terminating at the mid arch. 4. Cardiomegaly without definite pulmonary vascular congestion. Preliminary report provided by Tobin, 11/30/2018 7:27 p.m..
--- NOTE | 2018-12-01 12:33 | CT ---
Date of service: 11/30/2018 PROCEDURE: CT Abdomen and Pelvis without intravenous contrast HISTORY: gi bleed COMPARISON: None. TECHNIQUE: Without contrast.. Contrast dose: 0 Radiation dose: Total exam DLP = 826.61 mGy-cm. This CT exam was performed using one or more of the following dose reduction techniques: Automated exposure control, adjustment of the mA and/or kV according to patient size, and/or use of iterative reconstruction technique. FINDINGS: LOWER THORAX: Patchy opacities in both lower lobes common nonspecific. This may be infectious or inflammatory in etiology, versus pulmonary edema. Cardiomegaly. Evidence of CABG. Nasogastric tube traverses the thoracic esophagus. LIVER: Unremarkable. No gross lesion or ductal dilatation. GALLBLADDER AND BILE DUCTS: Unremarkable. PANCREAS: Unremarkable. No gross lesion or ductal dilatation. SPLEEN: Mild splenomegaly. The spleen measures 14.6 cm in greatest dimension. No focal mass. ADRENALS: Unremarkable. No mass. KIDNEYS AND URETERS: Unremarkable. No hydronephrosis. No solid mass. VASCULATURE: Extensive atherosclerotic calcification of the abdominal aorta. No evidence of abdominal aortic aneurysm. BOWEL: Status post gastric band. The band appears to be in grossly appropriate position. No bowel obstruction. There is curvilinear high attenuation material seen in the inferior rectum most likely representing a rectal tube. A small amount of fluid is seen within the inferior rectum. APPENDIX: Unremarkable. Normal appendix. PERITONEUM: There is severe atrophy of the left rectus abdominus muscle. There is fatty atrophy of the right rectus abdominal muscle. There is heterogeneous attenuation within the muscle. There is thickening of the posterior right rectus sheath raising suspicion of an infectious or inflammatory process. There is no stranding of the mesenteric fat immediately adjacent to the posterior rectus sheath. Significance uncertain. Please correlate. LYMPH NODES: Unremarkable. No enlarged lymph nodes. BLADDER: Decompressed around Olivarez catheter balloon REPRODUCTIVE: Unremarkable postmenopausal uterus BONES: No acute fracture. OTHER FINDINGS: None. IMPRESSION: Probable rectal tube. There is fluid seen in the inferior rectum. There is no other abnormal bowel. The patient is status post gastric band procedure. There is abnormal appearance of the right rectus muscle with thickening of the posterior right rectus sheath. Differential diagnosis would include infectious or inflammatory processes. Please correlate clinically. This may also represent an atypical appearance of fatty atrophy of the right rectus muscle though there is asymmetrically severe atrophy of the left rectus muscle. Again, correlate with any known history regarding these findings. Olivarez catheter. CABG. Bilateral lower lobe infiltrates. Possible bilateral pneumonia. The preliminary findings for this examination were reported by [facility] at 7:33 p.m. on 11/30/2018. There is discordance of this report with the preliminary findings. Bilateral lower lobe pulmonary infiltrates were not described in the preliminary report of this examination. Abnormality of the right rectus abdominus muscle was not described in the preliminary report of this examination. Rectal tube was not described in the preliminary report of this examination. These discrepant findings were discussed by telephone with the patient's nurse, Jose, by telephone, at 12:30 p.m. on 12/01/2018.
[2018-12-01] MEDS ORDERED: Potassium Chl 20 mEq in NS 1,000 ML IV SCH (14:45)
--- NOTE | 2018-12-01 15:16 | CP.PCM.PN ---
Subjective - Date & Time of Evaluation Date of Evaluation: 12/01/18 Time of Evaluation: 15:23 - Subjective Subjective: Patient still on vent support sedated. Poly transfuse secondary to GI bleed, most probable secondary to stress gastritis. Persistent pre renal failure secondary to hypotension, anemia and sepsis. Pneumonia with influenza associated to severe broncospasm and respiratory failure. Patient on anti coagulation secondary to AVR (metallic) to prevent cerebro vascular accident.The status of the patient was discussed with family and older adult social work specialist. Will continue anticoagulation as necessary to protect the valve. Continue transfusions and IV hydration. Continue vent support. The prognosis is guarded. Objective - Vital Signs/Intake and Output Vital Signs (last 24 hours): Temp Pulse Resp BP Pulse Ox 98.9 F 91 H 21 101/49 L 97 12/01/18 14:14 12/01/18 14:14 12/01/18 14:14 12/01/18 14:14 12/01/18 14:00 Intake and Output: 12/01/18 12/01/18 11:59 23:59 Intake Total 1274 995 Output Total 500 100 Balance 774 895 - Medications Medications: Current Medications Acetaminophen (Tylenol 325mg Tab) 650 mg PO Q6H PRN PRN Reason: Pain (1-10) Last Admin: 12/01/18 11:20 Dose: 650 mg Acetaminophen (Tylenol 325mg Tab) 650 mg PO Q6H PRN PRN Reason: Fever >100.4 F Last Admin: 11/28/18 06:07 Dose: 650 mg Acetaminophen (Tylenol 160mg/5ml Oral Soln) 160 mg PO ONCE PRN PRN Reason: Flu symptoms Albuterol/Ipratropium (Duoneb 3 Mg/0.5 Mg (3 Ml) Ud) 3 ml INH RQ6 [facility] Last Admin: 12/01/18 13:02 Dose: 3 ml Aspirin (Aspirin) 325 mg GT DAILY [facility] Last Admin: 12/01/18 09:48 Dose: 325 mg Atorvastatin Calcium (Lipitor) 40 mg PO DAILY [facility] Last Admin: 12/01/18 09:44 Dose: 40 mg Dimethicone (Proshield Plus Skin Protectant) 1 applic TOP Q8 [facility] Last Admin: 12/01/18 09:45 Dose: 1 applic Piperacillin Sod/Tazobactam (Sod 2.25 gm/ Sodium Chloride) 100 mls @ 100 mls/hr IVPB Q8 [facility]; Protocol Last Admin: 12/01/18 09:52 Dose: 100 mls/hr Propofol (Diprivan) 1,000 mg in 100 mls @ 11.839 mls/hr IV .Q8H27M [facility]; Protocol Stop: 12/01/18 22:11 Last Admin: 12/01/18 11:18 Dose: 15 mcg/kg/min, 11.839 mls/hr Heparin Sodium/Dextrose (Heparin 25,000 Units/250ml In D5w) 25,000 units in 250 mls @ 16 mls/hr IV .[id number] [facility]; Protocol Last Admin: 12/01/18 07:05 Dose: 16 mls/hr Azithromycin 500 mg/ Sodium (Chloride) 250 mls @ 250 mls/hr IVPB DAILY [facility]; Protocol Last Admin: 12/01/18 10:14 Dose: Not Given Potassium Chloride/Sodium Chloride (Potassium Chl 20 Meq In Ns) 1,000 mls @ 75 mls/hr IV .[id number] [facility] Metoprolol Succinate (Toprol Xl) 12.5 mg PO DAILY [facility] Last Admin: 12/01/18 09:50 Dose: Not Given Metoprolol Tartrate (Lopressor) 25 mg PO Q12 [facility] Last Admin: 12/01/18 09:47 Dose: Not Given Nystatin (Nystop Topical Powder) 1 applic TOP TID [facility] Last Admin: 12/01/18 13:41 Dose: 1 applic Oseltamivir Phosphate (Tamiflu Cap) 75 mg PO BID [facility]; Protocol Last Admin: 12/01/18 09:49 Dose: 75 mg Pantoprazole Sodium (Protonix Inj) 40 mg IVP Q12 [facility] Last Admin: 12/01/18 09:45 Dose: 40 mg - Labs Labs: 12/01/18 05:00 12/01/18 05:00 PT 13.1 Seconds (9.8-13.1) 11/30/18 08:00 INR 1.2 11/30/18 08:00 APTT 137.7 Seconds (25.6-37.1) H 12/01/18 05:00 - Constitutional Appears: Chronically Ill - Head Exam Head Exam: ATRAUMATIC - Neck Exam Additional comments: large hematoma - Respiratory Exam Respiratory Exam: Decreased Breath Sounds, Rhonchi - Cardiovascular Exam Cardiovascular Exam: REGULAR RHYTHM, +S1, +S2 - GI/Abdominal Exam GI & Abdominal Exam: Soft - Extremities Exam Extremities Exam: Normal Inspection - Neurological Exam Additional comments: sedated - Skin Skin Exam: Pallor Assessment and Plan (1) CAP (community acquired pneumonia) Status: Acute (2) CHF exacerbation Status: Acute (3) DVT prophylaxis Status: Acute (4) History of aortic valve replacement Status: Chronic (5) Influenza A Status: Acute (6) NSTEMI (non-ST elevated myocardial infarction) Status: Acute (7) Pneumonia and influenza Status: Acute (8) Respiratory distress Status: Acute (9) Respiratory failure with hypoxia and hypercapnia Status: Acute (10) Morbid obesity Status: Chronic (11) COPD (chronic obstructive pulmonary disease) Status: Suspected (12) Myocardial ischemia Status: Acute (13) Renal failure, acute Status: Acute (14) Hematoma Status: Acute
--- NOTE | 2018-12-01 18:38 | CP.PCM.PN ---
Subjective - Date & Time of Evaluation Date of Evaluation: 12/01/18 Time of Evaluation: 12:45 - Subjective Subjective: Patient receiving another unit prbc today; still melanotic stools but decreased amount; R lower neck/upper chest hematoma; urine output decreased; Objective - Vital Signs/Intake and Output Vital Signs (last 24 hours): Temp Pulse Resp BP Pulse Ox 99.6 F 92 H 24 117/46 L 97 12/01/18 18:05 12/01/18 18:05 12/01/18 18:05 12/01/18 18:05 12/01/18 18:00 Intake and Output: 12/01/18 12/01/18 06:59 18:59 Intake Total 1033 3075 Output Total 500 100 Balance 533 2975 - Medications Medications: Current Medications Acetaminophen (Tylenol 325mg Tab) 650 mg PO Q6H PRN PRN Reason: Pain (1-10) Last Admin: 12/01/18 11:20 Dose: 650 mg Acetaminophen (Tylenol 325mg Tab) 650 mg PO Q6H PRN PRN Reason: Fever >100.4 F Last Admin: 11/28/18 06:07 Dose: 650 mg Acetaminophen (Tylenol 160mg/5ml Oral Soln) 160 mg PO ONCE PRN PRN Reason: Flu symptoms Albuterol/Ipratropium (Duoneb 3 Mg/0.5 Mg (3 Ml) Ud) 3 ml INH RQ6 [facility] Last Admin: 12/01/18 13:02 Dose: 3 ml Atorvastatin Calcium (Lipitor) 40 mg PO DAILY [facility] Last Admin: 12/01/18 09:44 Dose: 40 mg Dimethicone (Proshield Plus Skin Protectant) 1 applic TOP Q8 [facility] Last Admin: 12/01/18 16:28 Dose: 1 applic Piperacillin Sod/Tazobactam (Sod 2.25 gm/ Sodium Chloride) 100 mls @ 100 mls/hr IVPB Q8 [facility]; Protocol Last Admin: 12/01/18 16:31 Dose: 100 mls/hr Propofol (Diprivan) 1,000 mg in 100 mls @ 11.839 mls/hr IV .Q8H27M [facility]; Protocol Stop: 12/01/18 22:11 Last Admin: 12/01/18 11:18 Dose: 15 mcg/kg/min, 11.839 mls/hr Azithromycin 500 mg/ Sodium (Chloride) 250 mls @ 250 mls/hr IVPB DAILY [facility]; Protocol Last Admin: 12/01/18 10:14 Dose: Not Given Potassium Chloride/Sodium Chloride (Potassium Chl 20 Meq In Ns) 1,000 mls @ 75 mls/hr IV .[id number] [facility] Last Admin: 12/01/18 16:51 Dose: 75 mls/hr Heparin Sodium/Dextrose (Heparin 25,000 Units/250ml In D5w) 25,000 units in 250 mls @ 12 mls/hr IV .[id number] [facility]; Protocol Metoprolol Tartrate (Lopressor) 12.5 mg PO Q12 [facility] Nystatin (Nystop Topical Powder) 1 applic TOP TID [facility] Last Admin: 12/01/18 16:28 Dose: 1 applic Oseltamivir Phosphate (Tamiflu Cap) 75 mg PO BID [facility]; Protocol Last Admin: 12/01/18 16:29 Dose: 75 mg Pantoprazole Sodium (Protonix Inj) 40 mg IVP Q12 [facility] Last Admin: 12/01/18 09:45 Dose: 40 mg - Labs Labs: 12/01/18 05:00 12/01/18 05:00 PT 13.1 Seconds (9.8-13.1) 11/30/18 08:00 INR 1.2 11/30/18 08:00 APTT 100.8 Seconds (25.6-37.1) H 12/01/18 13:51 - Constitutional Appears: Non-toxic, No Acute Distress - Respiratory Exam Respiratory Exam: absent: Respiratory Distress Additional comments: some wheezes - Cardiovascular Exam Cardiovascular Exam: RRR, +S1, +S2. absent: Gallop, Rubs - GI/Abdominal Exam GI & Abdominal Exam: Soft, Tenderness. absent: Distended - Extremities Exam Additional comments: some edema of dependent areas; - Neurological Exam Additional comments: sedated, responsive to tactile stimuli; - Skin Skin Exam: Warm. absent: Cyanosis Assessment and Plan (1) Renal failure, acute Assessment & Plan: Worsening renal function in the setting of persistent hypotension and dropping h/h; oliguric renal failure, likely progressing to ATN; relatively stable electrolyte status; relatively low FIO2 requirement though still hypoxic on ABG this morning; no current indication for HD; -continue to maintain MAP > 65; will benefit from gentle IVF w/ NS at 75 cc/hr as discussed with CCM team; -continue to transfuse prbc as needed; -avoid nephrotoxic agents; -dose antibiotics for CrCl < 20 ml/min; Status: Acute (2) Acute hypoxemic respiratory failure Assessment & Plan: Secondary to influenza; Status: Acute (3) Anemia Status: Acute (4) Hypotension Status: Acute
--- NOTE | 2018-12-01 20:43 | CON ---
DATE: 11/30/2018 REFERRING PHYSICIAN: Pola Valverde MD REASON FOR CONSULTATION: Melena. HISTORY OF PRESENT ILLNESS: This is a 58-year-old female with history of hypertension, morbid obesity, CAD, CHF, has permanent mechanical aortic valve, on Coumadin, severe cough, and now having STEMI and renal failure. GI was called because the patient is on full dose of heparin. The patient developed melena and had a drop in hemoglobin; the patient is getting used to it at this point, family and chart staff who are present at the bedside. PAST MEDICAL HISTORY: As above. PAST SURGICAL HISTORY: As above. MEDICATIONS: Reviewed. REVIEW OF SYSTEMS: All other systems have been reviewed and negative apart from the HPI. PHYSICAL EXAMINATION: VITAL SIGNS: Here in the hospital are grossly unremarkable. GENERAL: A pleasant elderly female, lying in bed on a vent. HEENT: Head: Normocephalic and atraumatic. Eyes: Pupils are equal and reactive to light bilaterally. . NECK: Supple. LUNGS: Coarse breath sounds bilaterally. HEART: S1 and S2. ABDOMEN: Soft, distended. Bowel sounds are present. No rebound. No guarding. RECTAL: Deferred. EXTREMITIES: . SKIN: Warm, dry, and intact. NEUROLOGIC: Alert and oriented x3. LABORATORY DATA: Labs and radiology have been reviewed. WBC is 14.7, hemoglobin 7.6, 223.8 hematocrit, platelet 164. PTT is 150. Creatinine 0.3 and BUN 64. ASSESSMENT AND PLAN: This is a 58-year-old with multisystem organ failure and melena. At this point, we need to stop blood thinners if Cardiology is okay with it. Proton pump inhibitor intravenous for now, CAT scan to rule out any abdominal pathology. Prognosis is guarded. Thank you for this consult. Kamaljit Chaudhry MD/ PhD cc: Pola Valverde MD
[2018-12-02] MEDS: Albuterol-Ipratrop 3 mg / 0.5 (3 ml) UD INH SCH ×4 (01:01→19:04)
[2018-12-02] MEDS: Propofol 10 mg/ml 1,000 MG/100 ML VIAL IV SCH ×4 (01:39→23:44)
[2018-12-02] MEDS: Heparin 25,000units in D5W 25,000 UNITS/250 ML BAG IV SCH (01:53)
[2018-12-02] MEDS: Proshield Plus GEL TOP SCH ×3 (01:57→16:57)
--- NOTE | 2018-12-02 04:35 | PN ---
DATE: 12/01/2018 LOCATION: The patient in ICU bed 430. TIME SPENT: 35 minutes. SUBJECTIVE: The patient is seen and evaluated at the bedside. Past medical, surgical, family and social history reviewed as noted in H and P and application security consultant's note. A 58-year-old female, morbidly obese with a history significant for chronic obstructive pulmonary disease, valvular heart disease, status post aortic valve replacement, on Coumadin status post PCI, hypertension, hyperlipidemia, previous pneumonia. Admitted with hypercapnic hypoxic respiratory failure, remains intubated on mechanical ventilation, sedated on Diprivan drip. Vent setting, AC/PRVC rate 16, tidal volume 450, FiO2 50%, PEEP of 5. Observed rate 12, tidal volume 420, minute ventilation 9.7 L, saturating 100%. End-tidal CO2 of 32. PHYSICAL EXAMINATION: VITAL SIGNS: Temperature 99.4, heart rate 92, regular, blood pressure 101/49, mean arterial pressure 66, oxygen saturation 97%. Intake 4407, output 880, positive balance 3527. HEAD, EYES, EARS, NOSE, AND THROAT: Pupils are reactive. Conjunctivae pink. Sclerae white. Ecchymosis with hematoma, right side of the neck extending to the right upper chest wall. CHEST: Bilateral breath sounds, diminished air entry. Clear to auscultation anteriorly and laterally. HEART: Rhythm regular. S1, S2, normal, distant. No audible murmur. ABDOMEN: Bowel sounds present. Soft. Mild distention on the right flank. NEUROLOGIC: Sedated on Diprivan drip. EXTREMITIES: No palpable cord. Capillary refill less than 2 seconds. CURRENT MEDICATIONS: Tylenol 650 every 6 hours p.r.n., albuterol/Atrovent inhalation 3 mL via nebulizer every 6 hours, aspirin 325 mg, Lipitor 40 mg p.o. daily, Zithromax 500 mg IV daily, dimethicone-Proshield Plus Skin Protectant one application every 8 hours, heparin drip, metoprolol 25 mg p.o. every 12 hours for systolic pressure less than 100, nystatin powder one application topically three times daily, Tamiflu to complete 5 days of treatment, Protonix 40 IV every 12 hours, Zosyn 2.25 g IV every 8 hours, propofol drip to [place] scale 2. LABORATORY DATA: WBC 13.2, hemoglobin 7.2, hematocrit 21.9, platelet count 172. PTT 156.3. PT 13.1, INR 1.2 on 11/30/2018. ABG, pH 7.31, pCO2 of 49, pO2 of 64 on SIMV 12, 450, 40%, PEEP of 5, pressure support 50. SMA-7: Sodium 141, potassium 3.6, chloride 102, CO2 26, blood urea nitrogen 17, BUN 70, creatinine 3.7, random glucose 92, calcium 7.4, potassium 3.5. Urinalysis: Leukocyte esterase moderate, rbc 25, wbc 28. Stool occult blood positive. Vancomycin trough level 18.5. Influenza A and B positive. Microbiology: Urine culture, no growth reported. Sputum, normal lizette. Blood culture, no growth. Nasal smear, MRSA negative. Chest x-ray done this morning shows no pulmonary vascular congestion, normal. No atherosclerotic calcification, no significant abnormalities, limited examination. No definite infiltrate could be visualized. CT chest done on 11/30/2018 shows mixed interstitial and alveolar infiltrates including ground-glass opacity suggestive of possible atypical pneumonia or inflammatory process. No significant lymphadenopathy, collapse of lateral segment, right middle lobe with underlying potential airway narrowing or stricture. Ascending thoracic aorta measures 4.9 cm, cardiomegaly. IMPRESSION: 1. Neurologic: Admitted with hypercapnic hypoxic respiratory failure, currently sedated on Diprivan, on Diprivan holiday, wakeful and able to follow commands. Suspected superimposed septic hypoxic metabolic encephalopathy. Continue Diprivan to facilitate mechanical ventilation. 2. Pulmonary: Hypercapnic hypoxic respiratory failure, influenza A and B positive, superimposed pneumonia. Repeat CAT scan shows improvement of bilateral infiltrates on bronchodilator. Continue antibiotic, complete the course of Tamiflu. 3. Cardiac: Status post aortic valve replacement with mechanical valve, coronary artery disease bypass graft. No cardiac arrhythmias. Continue anticoagulation as recommended by cardiology consult, aspirin as per discussion with PMD and cardiology to minimize the risk of bleeding. The patient may have a platelet dysfunction as well due to renal failure. 4. Infectious disease: Influenza A and B positive, superimposed pneumonia. Continue antibiotic, vancomycin on hold due to high trough level. 5. Renal: [id number] renal insufficiency, hypertension. Hold antihypertensive medications for systolic pressure less than 100, continue IV hydration normal saline at 75 mL as per discussion with renal consult. 6. Endocrine: TSH 0.2. Blood sugar 92. Hypoalbuminemia due to nutritional depletion and stress from underlying disease. 7. Hematology: Leukocytosis trending down. Hemoglobin stable status post transfusion 2 units of packed red blood cells due to acute blood loss from coagulopathy and gastrointestinal bleeding/stress gastritis, discussed with GI consult. No further plan noted. The patient has to be on anticoagulation to protect the mechanical aortic valve. We will follow the recommendation by cardiology consult. Keep head of bed 30 degrees up. 8. Deep venous thrombosis prophylaxis. 9. Nasogastric feeding at the current goal rate. Prognosis remains guarded given multiorgan failure. Jered Black MD
[2018-12-02 05:30] LABS: HEMOGLOBIN 8.3 g/dL (12.0-16.0); MEAN CELL VOLUME 92.1 fl (81.0-99.0); MEAN CORPUSCULAR HEMOGLOBIN 30.9 pg (27.0-31.0); MEAN CORPUSCULAR HGB CONC 33.6 g/dL (33.0-37.0); RBC 2.69 Mil/uL (3.80-5.20); RED CELL DISTRIBUTION WIDTH 15.2 % (11.5-14.5)
[2018-12-02 05:35] LABS: ABG ALLEN TEST YES; ARTERIAL BLOOD GAS HEMOGLOBIN 8.5 g/dL (11.7-17.4); ARTERIAL BLOOD GAS O2 CAPACITY 11.6 mL/dL (16-24); ARTERIAL BLOOD GAS O2 CONTENT 11.5 ML/dL (15-23); ARTERIAL BLOOD GAS O2 SAT 99.5 % (95-98); ARTERIAL BLOOD GAS PCO2 47 mm/Hg (35-45); ARTERIAL BLOOD GAS PH 7.31 (7.35-7.45); ARTERIAL BLOOD GAS PO2 85 mm/Hg (80-100); ARTERIAL BLOOD GAS TCO2 25.1 mmol/L (22-28)
[2018-12-02 05:43] LABS: CALCIUM 7.4 mg/dL (8.4-10.2)
[2018-12-02] MEDS ORDERED: Sodium Chloride 0.9% 1,000 ML IV SCH (07:15)
--- NOTE | 2018-12-02 07:30 | CP.PCM.PN ---
<Celestine Calhoun - Last Filed: 12/02/18 16:33> Subjective - Date & Time of Evaluation Date of Evaluation: 12/02/18 Time of Evaluation: 16:33 - Subjective Subjective: Celestine Calhoun DO PGY1 - Internal Medicine Assistant Center Director - Cardiology Note for Dr. Sutton Patient vital signs reviewed, patient was febrile overnight oxygen saturation 94% on 40% FI02, patient remained hemodynamically stable. Lab work reviewed, hemoglobin trending up, PTT maintained between 40 and 50. Nursing notes reviewed, rectal tube continues to drain melanotic stool Olivarez catheter draining yellow urine, no other active bleeding reported as per nursing. Patient has output 650 mL in fully within 24 hour window. Patient continues to be intubated however she is off of sedation; following commands Objective - Vital Signs/Intake and Output Vital Signs (last 24 hours): Temp Pulse Resp BP Pulse Ox 100.5 F H 97 H 29 H 114/58 L 94 L 12/02/18 04:00 12/02/18 05:00 12/02/18 05:00 12/02/18 05:00 12/02/18 05:00 Intake and Output: 12/02/18 12/02/18 06:59 18:59 Intake Total 2406 Output Total 550 Balance 1856 - Medications Medications: Current Medications Acetaminophen (Tylenol 325mg Tab) 650 mg PO Q6H PRN PRN Reason: Pain (1-10) Last Admin: 12/01/18 11:20 Dose: 650 mg Acetaminophen (Tylenol 325mg Tab) 650 mg PO Q6H PRN PRN Reason: Fever >100.4 F Last Admin: 11/28/18 06:07 Dose: 650 mg Acetaminophen (Tylenol 160mg/5ml Oral Soln) 160 mg PO ONCE PRN PRN Reason: Flu symptoms Albuterol/Ipratropium (Duoneb 3 Mg/0.5 Mg (3 Ml) Ud) 3 ml INH RQ6 [facility] Last Admin: 12/02/18 01:01 Dose: 3 ml Atorvastatin Calcium (Lipitor) 40 mg PO DAILY [facility] Last Admin: 12/01/18 09:44 Dose: 40 mg Dimethicone (Proshield Plus Skin Protectant) 1 applic TOP Q8 [facility] Last Admin: 12/02/18 01:57 Dose: 1 applic Piperacillin Sod/Tazobactam (Sod 2.25 gm/ Sodium Chloride) 100 mls @ 100 mls/hr IVPB Q8 [facility]; Protocol Last Admin: 12/02/18 01:40 Dose: 100 mls/hr Azithromycin 500 mg/ Sodium (Chloride) 250 mls @ 250 mls/hr IVPB DAILY [facility]; Protocol Last Admin: 12/01/18 10:14 Dose: Not Given Heparin Sodium/Dextrose (Heparin 25,000 Units/250ml In D5w) 25,000 units in 250 mls @ 12 mls/hr IV .[id number] [facility]; Protocol Heparin Sodium/Dextrose (Heparin 25,000 Units/250ml In D5w) 25,000 units in 250 mls @ 11 mls/hr IV .[id number] [facility]; Protocol Last Admin: 12/02/18 01:53 Dose: 11 mls/hr Propofol (Diprivan) 1,000 mg in 100 mls @ 19.731 mls/hr IV .Q5H5M [facility]; Protocol Stop: 12/02/18 23:35 Last Admin: 12/02/18 07:10 Dose: 25 mcg/kg/min, 19.731 mls/hr Sodium Chloride (Sodium Chloride 0.9%) 1,000 mls @ 75 mls/hr IV .[id number] [facility] Stop: 12/03/18 07:13 Metoprolol Tartrate (Lopressor) 12.5 mg PO Q12 [facility] Last Admin: 12/01/18 20:22 Dose: 12.5 mg Nystatin (Nystop Topical Powder) 1 applic TOP TID [facility] Last Admin: 12/01/18 16:28 Dose: 1 applic Oseltamivir Phosphate (Tamiflu Cap) 75 mg PO BID [facility]; Protocol Last Admin: 12/01/18 16:29 Dose: 75 mg Pantoprazole Sodium (Protonix Inj) 40 mg IVP Q12 [facility] Last Admin: 12/01/18 20:22 Dose: 40 mg - Labs Labs: 12/02/18 04:50 12/02/18 04:50 PT 13.1 Seconds (9.8-13.1) 11/30/18 08:00 INR 1.2 11/30/18 08:00 APTT 45.1 Seconds (25.6-37.1) H 12/02/18 04:50 - Constitutional Appears: Non-toxic, No Acute Distress - Head Exam Head Exam: ATRAUMATIC, NORMOCEPHALIC - Eye Exam Eye Exam: EOMI, Normal appearance, PERRL. absent: Scleral icterus - ENT Exam Additional comments: ET tube in place - Respiratory Exam Respiratory Exam: Rhonchi, Wheezes, NORMAL BREATHING PATTERN. absent: Clear to Ausculation Bilateral Additional comments: Mild crackles appreciated bilaterally - Cardiovascular Exam Cardiovascular Exam: RRR, +S1, +S2 Additional comments: No click appreciated on exam - GI/Abdominal Exam GI & Abdominal Exam: Soft. absent: Tenderness Additional comments: Obese - Extremities Exam Additional comments: BL LE PT/DP 2+ - Neurological Exam Neurological Exam: Alert, Awake Additional comments: Following commands Moving extremities Off of sedation - Skin Skin Exam: Dry, Intact, Warm Assessment and Plan (1) CAP (community acquired pneumonia) Status: Acute (2) CHF exacerbation Status: Acute (3) NSTEMI (non-ST elevated myocardial infarction) Status: Acute (4) Morbid obesity Status: Chronic (5) COPD (chronic obstructive pulmonary disease) Status: Suspected - Assessment and Plan (Free Text) Plan: Hb up trending today; Recommend continuing heparin drip titrate to maintain PTT between 40 and 50 Can consider resuming antiplatelet (ASA) if Hb continues to remain stable Continue Metropol 12.5 Q12. Will plan for WOLFGANG once patient stabilized; Further intervention pending WOLFGANG to be determined Transfuse as needed to maintain Hb >9 <Isaak Sutton - Last Filed: 12/03/18 18:41> Objective - Vital Signs/Intake and Output Vital Signs (last 24 hours): Temp Pulse Resp BP Pulse Ox 98.6 F 101 H 22 107/45 L 96 12/03/18 16:00 12/03/18 18:00 12/03/18 18:00 12/03/18 18:00 12/03/18 18:00 Intake and Output: 12/03/18 12/03/18 06:59 18:59 Intake Total 1937 1755 Output Total 725 750 Balance 1212 1005 - Medications Medications: Current Medications Acetaminophen (Tylenol 325mg Tab) 650 mg PO Q6H PRN PRN Reason: Pain (1-10) Last Admin: 12/01/18 11:20 Dose: 650 mg Acetaminophen (Tylenol 325mg Tab) 650 mg PO Q6H PRN PRN Reason: Fever >100.4 F Last Admin: 11/28/18 06:07 Dose: 650 mg Acetaminophen (Tylenol 160mg/5ml Oral Soln) 160 mg PO ONCE PRN PRN Reason: Flu symptoms Albuterol/Ipratropium (Duoneb 3 Mg/0.5 Mg (3 Ml) Ud) 3 ml INH RQ6 [facility] Last Admin: 12/03/18 13:28 Dose: 3 ml Atorvastatin Calcium (Lipitor) 40 mg PO DAILY [facility] Last Admin: 12/03/18 08:21 Dose: 40 mg Dimethicone (Proshield Plus Skin Protectant) 1 applic TOP Q8 [facility] Last Admin: 12/03/18 17:27 Dose: 1 applic Azithromycin 500 mg/ Sodium (Chloride) 250 mls @ 250 mls/hr IVPB DAILY [facility]; Protocol Last Admin: 12/03/18 08:30 Dose: 250 mls/hr Propofol (Diprivan) 1,000 mg in 100 mls @ 19.211 mls/hr IV .Q5H13M [facility]; Protocol Stop: 12/03/18 23:51 Last Titration: 12/03/18 07:30 Dose: 0 mcg/kg/min, 0 mls/hr Furosemide 100 mg/ Sodium (Chloride) 100 mls @ 10 mls/hr IV .Q10H [facility]; Protocol Last Admin: 12/03/18 13:30 Dose: 10 mls/hr Metoprolol Tartrate (Lopressor) 12.5 mg PO Q12 [facility] Last Admin: 12/03/18 08:28 Dose: 12.5 mg Nystatin (Nystop Topical Powder) 1 applic TOP TID [facility] Last Admin: 12/03/18 17:27 Dose: 1 applic Pantoprazole Sodium (Protonix Inj) 40 mg IVP Q12 [facility] Last Admin: 12/03/18 08:23 Dose: 40 mg - Labs Labs: 12/03/18 05:40 12/03/18 05:40 PT 11.6 Seconds (9.8-13.1) 12/02/18 21:15 INR 1.0 12/02/18 21:15 APTT 43.2 Seconds (25.6-37.1) H 12/03/18 05:40 Assessment and Plan (1) NSTEMI (non-ST elevated myocardial infarction) Status: Acute (2) CAP (community acquired pneumonia) Status: Acute (3) CHF exacerbation Status: Acute (4) Respiratory distress Status: Acute (5) Respiratory failure with hypoxia and hypercapnia Status: Acute (6) History of aortic valve replacement Status: Chronic (7) Morbid obesity Status: Chronic (8) COPD (chronic obstructive pulmonary disease) Status: Suspected Attending/Attestation - Attestation I have personally seen and examined this patient.: Yes I have fully participated in the care of the patient.: Yes I have reviewed all pertinent clinical information, including history, physical exam and plan: Yes
--- NOTE | 2018-12-02 08:42 | CP.PCM.PN ---
Subjective - Date & Time of Evaluation Date of Evaluation: 12/02/18 Time of Evaluation: 08:32 - Subjective Subjective: Seen on rounds in the ICU this morning. Still orally intubated and mechanically ventilated. Sedation is presently OFF and she is awake and nods her head in response to questions. Tmax 100.5 degrees this morning. Oxygenation is good on ABG, CO2 is minimally elevated, mild metabolic acidosis. Chest x-ray is difficult to interpret because of body habitus, but looks stable. Hemoglobin up to 8.3GMs this morning. WBC 12 and platelets WNL. Peak airways pressure same as yesterday. No cyanosis, large area of ecchymosis right upper chest is essentially the same. Dependant edema still present, but may be a little decreased from the day be fore. Neck is supple and trachea midline. No dullness on percussion of snterior chest wall. Breath sounds are fairly well heard in both lungs, equally. Expiratory phase is a little prolonged with faint E wheezes. Dry rales are present in both lower lobes posteriorly. No bronchial breath sounds are heard. Heart sounds are distant and rhythm regular. Abdomen is obese and appears to be non-tender. Attempted switch to CPAP/PS but appeared to develop some dyspnea after about 2 minutes. Returned to SIMV at a lower rate of 10 BPM and tolerated well. Oxygenation is good on present FiO2. Procalcitonin requested. Course of Tamiflu will end today. Wean as tolerated from ventilator. Continue as per renal. Begin to withdraw antibiotics if procalcitonin not elevated. Objective - Vital Signs/Intake and Output Vital Signs (last 24 hours): Temp Pulse Resp BP Pulse Ox 99.3 F 93 H 20 113/55 L 97 12/02/18 08:00 12/02/18 08:00 12/02/18 08:00 12/02/18 08:00 12/02/18 08:00 Intake and Output: 12/01/18 12/02/18 23:59 11:59 Intake Total 3317 1554 Output Total 250 400 Balance 3067 1154 - Medications Medications: Current Medications Acetaminophen (Tylenol 325mg Tab) 650 mg PO Q6H PRN PRN Reason: Pain (1-10) Last Admin: 12/01/18 11:20 Dose: 650 mg Acetaminophen (Tylenol 325mg Tab) 650 mg PO Q6H PRN PRN Reason: Fever >100.4 F Last Admin: 11/28/18 06:07 Dose: 650 mg Acetaminophen (Tylenol 160mg/5ml Oral Soln) 160 mg PO ONCE PRN PRN Reason: Flu symptoms Albuterol/Ipratropium (Duoneb 3 Mg/0.5 Mg (3 Ml) Ud) 3 ml INH RQ6 [facility] Last Admin: 12/02/18 08:26 Dose: 3 ml Atorvastatin Calcium (Lipitor) 40 mg PO DAILY [facility] Last Admin: 12/01/18 09:44 Dose: 40 mg Dimethicone (Proshield Plus Skin Protectant) 1 applic TOP Q8 [facility] Last Admin: 12/02/18 01:57 Dose: 1 applic Piperacillin Sod/Tazobactam (Sod 2.25 gm/ Sodium Chloride) 100 mls @ 100 mls/hr IVPB Q8 [facility]; Protocol Last Admin: 12/02/18 01:40 Dose: 100 mls/hr Azithromycin 500 mg/ Sodium (Chloride) 250 mls @ 250 mls/hr IVPB DAILY [facility]; Protocol Last Admin: 12/01/18 10:14 Dose: Not Given Heparin Sodium/Dextrose (Heparin 25,000 Units/250ml In D5w) 25,000 units in 250 mls @ 12 mls/hr IV .[id number] [facility]; Protocol Heparin Sodium/Dextrose (Heparin 25,000 Units/250ml In D5w) 25,000 units in 250 mls @ 11 mls/hr IV .[id number] [facility]; Protocol Last Admin: 12/02/18 01:53 Dose: 11 mls/hr Propofol (Diprivan) 1,000 mg in 100 mls @ 19.731 mls/hr IV .Q5H5M [facility]; Protocol Stop: 12/02/18 23:35 Last Admin: 12/02/18 07:10 Dose: 25 mcg/kg/min, 19.731 mls/hr Sodium Chloride (Sodium Chloride 0.9%) 1,000 mls @ 75 mls/hr IV .[id number] [facility] Stop: 12/03/18 07:13 Metoprolol Tartrate (Lopressor) 12.5 mg PO Q12 [facility] Last Admin: 12/01/18 20:22 Dose: 12.5 mg Nystatin (Nystop Topical Powder) 1 applic TOP TID [facility] Last Admin: 12/01/18 16:28 Dose: 1 applic Oseltamivir Phosphate (Tamiflu Cap) 75 mg PO BID [facility]; Protocol Last Admin: 12/01/18 16:29 Dose: 75 mg Pantoprazole Sodium (Protonix Inj) 40 mg IVP Q12 [facility] Last Admin: 12/01/18 20:22 Dose: 40 mg - Labs Labs: 12/02/18 04:50 12/02/18 04:50 PT 13.1 Seconds (9.8-13.1) 11/30/18 08:00 INR 1.2 11/30/18 08:00 APTT 45.1 Seconds (25.6-37.1) H 12/02/18 04:50 Assessment and Plan (1) Respiratory failure with hypoxia and hypercapnia Status: Acute (2) Influenza A Status: Acute (3) Pneumonia and influenza Status: Acute (4) Morbid obesity Status: Chronic (5) COPD (chronic obstructive pulmonary disease) Status: Suspected
[2018-12-02] MEDS: Azithromycin 500 MG in Sodium Chloride 0.9% 250 ML IVPB SCH (08:50)
--- NOTE | 2018-12-02 09:45 | RAD ---
Date of service: 12/02/2018 HISTORY: pneumonia COMPARISON: 12/01/2018 FINDINGS: LUNGS: Lung volumes are probably within normal limits. There are ill-defined patchy opacities over both lungs patchy pneumonia/and/or viral pneumonitis are some considerations. No specifically dense cyst greater area of consolidation noted. Pulmonary venous congestion present/suggested. Endotracheal tube tip approximately 4 cm from tomas. Slight tenting of the medial right hemidiaphragm more accentuated on this exam PLEURA: No significant pleural effusion identified, no pneumothorax apparent. CARDIOVASCULAR: There is presence of aortic atherosclerotic calcification on x-ray. Cardiomegaly-similar. Pulmonary venous congestion suggested. Right internal jugular vein central catheter inserted tip superior vena cava-as before. Sternal wires present and intact. OSSEOUS STRUCTURES: No significant abnormalities. VISUALIZED UPPER ABDOMEN: Normal. OTHER FINDINGS: None. IMPRESSION: Cardiomegaly and pulmonary venous congestion-a status believed present previously. In addition patchy ill-defined small bilateral opacities are perceived a a bilateral diffuse bronchopneumonia is a consideration. No significant appearing dense consolidation noted. Slightly greater low-density confluence however along the left lateral mid lung zone noted. Clinical follow-up recommended..
--- NOTE | 2018-12-02 11:47 | CP.CCUPN ---
CCU Subjective - Physician Review Subjective (Free Text): Had been sedated on low dose Propofol, calm, and responsive to simple commands, at RASS of zero. On heparin drip, no active bleeding evident, NSS with KCL at 75 ml/hr. Pulm weaning attempts noted, did not tolerate brief CPAP PS trial. Total 4 units PRBCs given so far. She is positive 4.8L fluid balance over last 24H. 99F with Tmax 100.5F overnight, SBP 110's, HR 90's, RR 19-21, SPo2 95% on 40% oxygen. ROS: No other pertinent negs or positives on 10+ system review- unobtainable due to sedation PMSFH: All other Nursing and physician documentation reviewed to date; no new pertinent info noted relevant to current medical problems. EXAM- HEENT: no icterus, no gaze preference NECK: No JVD visible given short neck and overall obesity, supple, carotids equal upstroke bilat/no bruit. Underlying ecchymoses and hematoma noted; no increase in size or extent from previous descriptions. CHEST: Unchanged upper chest ecchymoses noted extending form R shoulder across upper chest to left side; decreased BS at the bases, especially R base; no wheezes audible bilaterally. HEART: regular, distant, S1S2, no rubs or murmurs noted ABD: soft and obese, nontender, no guarding, no organomegaly, BS hypoactive. EXT: no leg edema, no calf tenderness or palpable cords, distal pulses intact and symmetrical. NEURO: sedated, + tone in all extremities. SKIN: no rashes, warm and dry LABS: WBC= 12.0 HGB= 8.3 PLTs= 196K PTT = 45.1 7.31/47/85 Na= 140 K= 4.0 CL= 108 HCO3= 26 BUN/Cr= 80/4.3 BS= 100 CXR: (my interp)- ETT tip OK above tomas, bilateral scattered interstitial changes, R worse than L. Overall poor technical study. IMPRESSION / MAJOR PROBLEMS NOW: 1. Acute hypercarbic resp failure 2 COPD Exacerbation /Bilat pneumonia, NSTEMI with Acute Pulm Edema 2. Influenza Viral resp infection, r/o superimposed bilateral bacterial PNA 3. GI bleed (r/o stress gastritis versus other colitis disorder) and diffuse upper chest and neck ecchymoses (from previous R subclavian and R IJ vein venipuncture attempts during TLC placement) from warfarin coagulopathy. 4. SEDA, r/o ATN, versus pre-renal Azotemia 5. s /p AVR, on AC with heparin drip 6. Morbid obesity PLAN: 1. Re-try MV weans CPAP PS as tolerated. 2. Sputum Cx to be repeated with new low grade temps. Needs PICC line to replace R IJV TLC, repeat BCs. On Azithro / Zosyn adjusted for renal insuff. Last day of Tamiflu therapy. 3. IVFs switched to plain NSS without K. 4. Sub-optimal ECHO study noted, Cardio eval. Lasix stopped, prn for now. ??? WOLFGANG to assess for LVfx, and r/o vegetations. Check VBG, lactate level. 5. Careful serial HGB monitoring for any further drops due to GIB.
[2018-12-02 12:37] LABS: VENOUS BLOOD GAS BASE EXCESS -3.6 mmol/L (0.0-2.0); VENOUS BLOOD GAS PCO2 52 mmHg (40-60); VENOUS BLOOD GAS PO2 36 mm/Hg (30-55); VENOUS BLOOD PH 7.27 (7.32-7.43)
[2018-12-02 13:02] LABS: FOLATE 2.2 ng/mL
--- NOTE | 2018-12-02 13:56 | CP.PCM.PN ---
Subjective - Date & Time of Evaluation Date of Evaluation: 12/02/18 Time of Evaluation: 13:57 - Subjective Subjective: Patient still on vent support sedated, but arousable She was Poly transfused the H/H is stable. The renal failure is persistent problable secondary to hypotension, anemia and sepsis. Increase ivf Pneumonia with influenza associated to severe broncospasm and respiratory failure the cxr reveled same improvement. Patient on anti coagulation secondary to AVR (metallic) to prevent cerebro vascular accident and protect the valve. The condition was discussed with the family. Will follow cardio consult. Consultants intervention appreciated. Objective - Vital Signs/Intake and Output Vital Signs (last 24 hours): Temp Pulse Resp BP Pulse Ox 99.8 F H 92 H 21 120/64 95 12/02/18 12:00 12/02/18 13:00 12/02/18 13:00 12/02/18 13:00 12/02/18 13:00 Intake and Output: 12/02/18 12/02/18 11:59 23:59 Intake Total 2436 390 Output Total 400 Balance 2036 390 - Medications Medications: Current Medications Acetaminophen (Tylenol 325mg Tab) 650 mg PO Q6H PRN PRN Reason: Pain (1-10) Last Admin: 12/01/18 11:20 Dose: 650 mg Acetaminophen (Tylenol 325mg Tab) 650 mg PO Q6H PRN PRN Reason: Fever >100.4 F Last Admin: 11/28/18 06:07 Dose: 650 mg Acetaminophen (Tylenol 160mg/5ml Oral Soln) 160 mg PO ONCE PRN PRN Reason: Flu symptoms Albuterol/Ipratropium (Duoneb 3 Mg/0.5 Mg (3 Ml) Ud) 3 ml INH RQ6 [facility] Last Admin: 12/02/18 13:10 Dose: 3 ml Atorvastatin Calcium (Lipitor) 40 mg PO DAILY [facility] Last Admin: 12/02/18 08:46 Dose: 40 mg Dimethicone (Proshield Plus Skin Protectant) 1 applic TOP Q8 [facility] Last Admin: 12/02/18 08:47 Dose: 1 applic Piperacillin Sod/Tazobactam (Sod 2.25 gm/ Sodium Chloride) 100 mls @ 100 mls/hr IVPB Q8 [facility]; Protocol Last Admin: 12/02/18 08:51 Dose: 100 mls/hr Azithromycin 500 mg/ Sodium (Chloride) 250 mls @ 250 mls/hr IVPB DAILY [facility]; Protocol Last Admin: 12/02/18 08:50 Dose: 250 mls/hr Heparin Sodium/Dextrose (Heparin 25,000 Units/250ml In D5w) 25,000 units in 250 mls @ 11 mls/hr IV .[id number] [facility]; Protocol Last Admin: 12/02/18 01:53 Dose: 11 mls/hr Propofol (Diprivan) 1,000 mg in 100 mls @ 19.731 mls/hr IV .Q5H5M [facility]; Protocol Stop: 12/02/18 23:35 Last Admin: 12/02/18 07:10 Dose: 25 mcg/kg/min, 19.731 mls/hr Sodium Chloride (Sodium Chloride 0.9%) 1,000 mls @ 75 mls/hr IV .[id number] [facility] Stop: 12/03/18 07:13 Metoprolol Tartrate (Lopressor) 12.5 mg PO Q12 [facility] Last Admin: 12/02/18 08:48 Dose: 12.5 mg Nystatin (Nystop Topical Powder) 1 applic TOP TID [facility] Last Admin: 12/02/18 13:16 Dose: 1 applic Oseltamivir Phosphate (Tamiflu Cap) 75 mg PO BID [facility]; Protocol Last Admin: 12/02/18 08:48 Dose: 75 mg Pantoprazole Sodium (Protonix Inj) 40 mg IVP Q12 [facility] Last Admin: 12/02/18 08:48 Dose: 40 mg - Labs Labs: 12/02/18 04:50 12/02/18 04:50 PT 13.1 Seconds (9.8-13.1) 11/30/18 08:00 INR 1.2 11/30/18 08:00 APTT 45.1 Seconds (25.6-37.1) H 12/02/18 04:50 - Constitutional Appears: Chronically Ill - Head Exam Head Exam: ATRAUMATIC, NORMAL INSPECTION, NORMOCEPHALIC - Eye Exam Eye Exam: Normal appearance - ENT Exam ENT Exam: Mucous Membranes Moist - Neck Exam Neck Exam: Full ROM - Respiratory Exam Respiratory Exam: Rhonchi, Wheezes - Cardiovascular Exam Cardiovascular Exam: REGULAR RHYTHM, +S1, +S2 - GI/Abdominal Exam GI & Abdominal Exam: Soft - Extremities Exam Extremities Exam: Normal Inspection - Neurological Exam Additional comments: sedated Assessment and Plan (1) CAP (community acquired pneumonia) Status: Acute (2) CHF exacerbation Status: Acute (3) DVT prophylaxis Status: Acute (4) History of aortic valve replacement Status: Chronic (5) Influenza A Status: Acute (6) NSTEMI (non-ST elevated myocardial infarction) Status: Acute (7) Pneumonia and influenza Status: Acute (8) Respiratory distress Status: Acute (9) Respiratory failure with hypoxia and hypercapnia Status: Acute (10) Morbid obesity Status: Chronic (11) COPD (chronic obstructive pulmonary disease) Status: Suspected (12) Myocardial ischemia Status: Acute (13) Renal failure, acute Status: Acute (14) Hematoma Status: Acute
[2018-12-02 21:37] LABS: PROTHROMBIN TIME 11.6 Seconds (9.8-13.1)
--- NOTE | 2018-12-02 21:53 | CP.PCM.PN ---
Subjective - Date & Time of Evaluation Date of Evaluation: 12/02/18 Time of Evaluation: 12:30 - Subjective Subjective: Patient still intubated but alert; melena improved; urine output improving; Objective - Vital Signs/Intake and Output Vital Signs (last 24 hours): Temp Pulse Resp BP Pulse Ox 98.7 F 102 H 18 121/49 L 100 12/02/18 16:00 12/02/18 21:45 12/02/18 19:00 12/02/18 21:45 12/02/18 19:00 Intake and Output: 12/02/18 12/03/18 18:59 06:59 Intake Total 2292 Output Total 300 Balance 1991 - Medications Medications: Current Medications Acetaminophen (Tylenol 325mg Tab) 650 mg PO Q6H PRN PRN Reason: Pain (1-10) Last Admin: 12/01/18 11:20 Dose: 650 mg Acetaminophen (Tylenol 325mg Tab) 650 mg PO Q6H PRN PRN Reason: Fever >100.4 F Last Admin: 11/28/18 06:07 Dose: 650 mg Acetaminophen (Tylenol 160mg/5ml Oral Soln) 160 mg PO ONCE PRN PRN Reason: Flu symptoms Albuterol/Ipratropium (Duoneb 3 Mg/0.5 Mg (3 Ml) Ud) 3 ml INH RQ6 [facility] Last Admin: 12/02/18 19:04 Dose: 3 ml Atorvastatin Calcium (Lipitor) 40 mg PO DAILY [facility] Last Admin: 12/02/18 08:46 Dose: 40 mg Dimethicone (Proshield Plus Skin Protectant) 1 applic TOP Q8 [facility] Last Admin: 12/02/18 16:57 Dose: 1 applic Piperacillin Sod/Tazobactam (Sod 2.25 gm/ Sodium Chloride) 100 mls @ 100 mls/hr IVPB Q8 [facility]; Protocol Last Admin: 12/02/18 16:59 Dose: 100 mls/hr Azithromycin 500 mg/ Sodium (Chloride) 250 mls @ 250 mls/hr IVPB DAILY [facility]; Protocol Last Admin: 12/02/18 08:50 Dose: 250 mls/hr Heparin Sodium/Dextrose (Heparin 25,000 Units/250ml In D5w) 25,000 units in 250 mls @ 11 mls/hr IV .[id number] [facility]; Protocol Last Titration: 12/02/18 15:00 Dose: 11 mls/hr Propofol (Diprivan) 1,000 mg in 100 mls @ 19.731 mls/hr IV .Q5H5M [facility]; Protocol Stop: 12/02/18 23:35 Last Admin: 12/02/18 19:36 Dose: Not Given Sodium Chloride (Sodium Chloride 0.9%) 1,000 mls @ 75 mls/hr IV .[id number] [facility] Stop: 12/03/18 07:13 Last Admin: 12/02/18 17:00 Dose: 75 mls/hr Metoprolol Tartrate (Lopressor) 12.5 mg PO Q12 [facility] Last Admin: 12/02/18 21:45 Dose: 12.5 mg Nystatin (Nystop Topical Powder) 1 applic TOP TID [facility] Last Admin: 12/02/18 16:57 Dose: 1 applic Oseltamivir Phosphate (Tamiflu Cap) 75 mg PO BID [facility]; Protocol Last Admin: 12/02/18 16:57 Dose: 75 mg Pantoprazole Sodium (Protonix Inj) 40 mg IVP Q12 [facility] Last Admin: 12/02/18 21:45 Dose: 40 mg - Labs Labs: 12/02/18 04:50 12/02/18 04:50 PT 11.6 Seconds (9.8-13.1) 12/02/18 21:15 INR 1.0 12/02/18 21:15 APTT 42.0 Seconds (25.6-37.1) H 12/02/18 21:15 - Constitutional Appears: Non-toxic, No Acute Distress - Eye Exam Eye Exam: Normal appearance - Respiratory Exam Respiratory Exam: absent: Respiratory Distress Additional comments: tachypneic, some wheezes; - Cardiovascular Exam Cardiovascular Exam: RRR. absent: Gallop, Rubs - GI/Abdominal Exam GI & Abdominal Exam: Soft. absent: Distended - Extremities Exam Additional comments: some edema of dependent areas - Neurological Exam Neurological Exam: Alert, Awake - Psychiatric Exam Psychiatric exam: absent: Agitated - Skin Skin Exam: Warm. absent: Cyanosis Assessment and Plan (1) Renal failure, acute Assessment & Plan: Clinically consistent with ATN; showing some signs that renal recovery may be close with improving urine output and decreasing rate of rise of serum creatinine; hemodynamically much improved after prbc given yesterday; relatively stable electrolyte status and low FIO2 requirement despite CXR findings; -can hold further IVF as MAP improved; -intermittent IV diuretics if needed; avoid over-diuresis; -avoid nephrotoxic agents (NSAIDS, etc); -maintain MAP > 65 (preferably > 70); -prbc transfusion prn; -dose any antibiotics for CrCl < 10 ml/min; Status: Acute (2) Acute hypoxemic respiratory failure Status: Acute (3) Anemia Status: Acute (4) Hypotension Status: Acute
--- NOTE | 2018-12-02 22:49 | CP.PCM.CON ---
History of Present Illness - History of Present Illness History of Present Illness: 58 year old female with a history of tobacco abuse, morbid obesity, mechanical AVR on coumadin, admitted with influenza, pneumonia, NSTEMI, respiratory failure, SEDA, anemia, GI blood loss s/p PRBC transfusion. The patient is currently intubated and I am unable to obtain a history from the patient. The patient has developed melanotic stool with a drop in hgb. Her hgb mayo is 6.7 and has required PRBC transfusion. She remains on a heparin drip given her mechanical AVR. Past medical, surgical, family, social history cannot be obtained from the patient. Allergies: NKA per documentation. Past Patient History - Past Medical History & Family History Past Medical History?: Yes - Past Social History Smoking Status: Heavy Smoker > 10 Cigarettes Daily - CARDIAC Hx Congestive Heart Failure: Yes Hx Hypertension: Yes Other/Comment: AVR - PULMONARY Hx Chronic Obstructive Pulmonary Disease (COPD): Yes (possible) - NEUROLOGICAL Hx Neurological Disorder: No - HEENT Hx HEENT Problems: No - RENAL Hx Chronic Kidney Disease: No - ENDOCRINE/METABOLIC Hx Endocrine Disorders: No - HEMATOLOGICAL/ONCOLOGICAL Hx Blood Disorders: No Hx Human Immunodeficiency Virus (HIV): No - INTEGUMENTARY Hx Dermatological Problems: No - MUSCULOSKELETAL/RHEUMATOLOGICAL Hx Falls: No - GASTROINTESTINAL Hx Gastrointestinal Disorders: No Other/Comment: gastric bypass-gastric band. >morbid obesity - GENITOURINARY/GYNECOLOGICAL Hx Genitourinary Disorders: No - PSYCHIATRIC Hx Substance Use: No - SURGICAL HISTORY Hx Gastric Bypass Surgery: Yes Hx Valve Replacement: Yes (aortic) - ANESTHESIA Hx Anesthesia: Yes Hx Anesthesia Reactions: No Hx Malignant Hyperthermia: No Has any member of the family had a problem w/ anesthesia?: No Meds Allergies/Adverse Reactions: Allergies Allergy/AdvReac Type Severity Reaction Status Date / Time No Known Allergies Allergy Verified 11/25/18 20:03 - Medications Medications: Current Medications Acetaminophen (Tylenol 325mg Tab) 650 mg PO Q6H PRN PRN Reason: Pain (1-10) Last Admin: 12/01/18 11:20 Dose: 650 mg Acetaminophen (Tylenol 325mg Tab) 650 mg PO Q6H PRN PRN Reason: Fever >100.4 F Last Admin: 11/28/18 06:07 Dose: 650 mg Acetaminophen (Tylenol 160mg/5ml Oral Soln) 160 mg PO ONCE PRN PRN Reason: Flu symptoms Albuterol/Ipratropium (Duoneb 3 Mg/0.5 Mg (3 Ml) Ud) 3 ml INH RQ6 [facility] Last Admin: 12/02/18 19:04 Dose: 3 ml Atorvastatin Calcium (Lipitor) 40 mg PO DAILY [facility] Last Admin: 12/02/18 08:46 Dose: 40 mg Dimethicone (Proshield Plus Skin Protectant) 1 applic TOP Q8 [facility] Last Admin: 12/02/18 16:57 Dose: 1 applic Piperacillin Sod/Tazobactam (Sod 2.25 gm/ Sodium Chloride) 100 mls @ 100 mls/hr IVPB Q8 [facility]; Protocol Last Admin: 12/02/18 16:59 Dose: 100 mls/hr Azithromycin 500 mg/ Sodium (Chloride) 250 mls @ 250 mls/hr IVPB DAILY [facility]; Pro tocol Last Admin: 12/02/18 08:50 Dose: 250 mls/hr Heparin Sodium/Dextrose (Heparin 25,000 Units/250ml In D5w) 25,000 units in 250 mls @ 11 mls/hr IV .[id number] [facility]; Protocol Last Titration: 12/02/18 15:00 Dose: 11 mls/hr Propofol (Diprivan) 1,000 mg in 100 mls @ 19.731 mls/hr IV .Q5H5M [facility]; Protocol Stop: 12/02/18 23:35 Last Admin: 12/02/18 19:36 Dose: Not Given Sodium Chloride (Sodium Chloride 0.9%) 1,000 mls @ 75 mls/hr IV .[id number] [facility] Stop: 12/03/18 07:13 Last Admin: 12/02/18 17:00 Dose: 75 mls/hr Metoprolol Tartrate (Lopressor) 12.5 mg PO Q12 [facility] Last Admin: 12/02/18 21:45 Dose: 12.5 mg Nystatin (Nystop Topical Powder) 1 applic TOP TID [facility] Last Admin: 12/02/18 16:57 Dose: 1 applic Oseltamivir Phosphate (Tamiflu Cap) 75 mg PO BID [facility]; Protocol Last Admin: 12/02/18 16:57 Dose: 75 mg Pantoprazole Sodium (Protonix Inj) 40 mg IVP Q12 [facility] Last Admin: 12/02/18 21:45 Dose: 40 mg Physical Exam - Head Exam Head Exam: ATRAUMATIC - Eye Exam Eye Exam: Normal appearance - ENT Exam ENT Exam: Mucous Membranes Dry - Respiratory Exam Respiratory Exam: Decreased Breath Sounds - Cardiovascular Exam Cardiovascular Exam: +S1, +S2 - GI/Abdominal Exam GI & Abdominal Exam: Normal Bowel Sounds - Extremities Exam Extremities exam: Positive for: pedal edema - Skin Skin Exam: Warm Results - Vital Signs Recent Vital Signs: Last Vital Signs Temp 98.7 F 12/02/18 16:00 Pulse 102 H 12/02/18 21:45 Resp 18 12/02/18 19:00 BP 121/49 L 12/02/18 21:45 Pulse Ox 100 12/02/18 19:00 - Labs Result Diagrams: 12/02/18 04:50 12/02/18 04:50 Labs: Laboratory Results - last 24 hr 12/02/18 12/02/18 12/02/18 04:50 04:50 04:50 WBC 12.0 H RBC 2.69 L Hgb 8.3 L Hct 24.7 L MCV 92.1 MCH 30.9 MCHC 33.6 RDW 15.2 H Plt Count 196 Retic Count 1.1 PT INR APTT 45.1 H pCO2 pO2 HCO3 ABG pH ABG Total CO2 ABG O2 Saturation ABG O2 Content ABG Base Excess ABG Hemoglobin ABG Carboxyhemoglobin POC ABG HHb (Measured) ABG Methemoglobin ABG O2 Capacity Juanito Test VBG pH VBG pCO2 VBG HCO3 VBG Total CO2 VBG O2 Sat (Calc) VBG Base Excess VBG Potassium A-a O2 Difference Hgb O2 Saturation Glucose Lactate Vent Mode Mechanical Rate FiO2 Tidal Volume PEEP Pressure Support Sodium 140 Potassium 4.0 Chloride 108 H Carbon Dioxide 26 Anion Gap 10 BUN 80 H Creatinine 4.3 H Est GFR ( Amer) 13 Est GFR (Non-Af Amer) 11 Random Glucose 100 Calcium 7.4 L Ferritin 720.0 H Vitamin B12 913 Folate 2.2 Venous Blood Potassium 12/02/18 12/02/18 12/02/18 05:30 12:34 21:15 WBC RBC Hgb Hct MCV MCH MCHC RDW Plt Count Retic Count PT 11.6 INR 1.0 APTT 42.0 H pCO2 47 H pO2 85 36 HCO3 23.0 ABG pH 7.31 L ABG Total CO2 25.1 ABG O2 Saturation 99.5 H ABG O2 Content 11.5 L ABG Base Excess -2.5 L ABG Hemoglobin 8.5 L ABG Carboxyhemoglobin 3.1 H POC ABG HHb (Measured) 0.5 ABG Methemoglobin 1.1 ABG O2 Capacity 11.6 L Juanito Test Yes VBG pH 7.27 L VBG pCO2 52 VBG HCO3 21.1 VBG Total CO2 25.5 VBG O2 Sat (Calc) 80.9 H VBG Base Excess -3.6 L VBG Potassium 4.1 A-a O2 Difference 141.0 Hgb O2 Saturation 95.3 Glucose 97 Lactate 0.5 L Vent Mode Simv/ps Mechanical Rate 12 FiO2 40.0 40.0 Tidal Volume 450 PEEP 5 5 Pressure Support 15 15 Sodium 143.0 Potassium Chloride 112.0 H Carbon Dioxide Anion Gap BUN Creatinine Est GFR ( Amer) Est GFR (Non-Af Amer) Random Glucose Calcium Ferritin Vitamin B12 Folate Venous Blood Potassium 4.1 Assessment & Plan (1) Anemia Assessment and Plan: GI blood loss - remains on heparin drip given mechanical AVR anemia of chronic disease transfusion support PRN Status: Acute (2) Coagulopathy Assessment and Plan: multifactorial anticoagulation and nutritional agree with vit k which will improve vit k dependent factors and help with hemostasis remains on heparin drip Status: Acute (3) Leukocytosis Assessment and Plan: improving with antibiotics Thank you for this interesting consult. Status: Acute
[2018-12-03] MEDS: Albuterol-Ipratrop 3 mg / 0.5 (3 ml) UD INH SCH ×4 (01:00→19:17)
[2018-12-03] MEDS: Proshield Plus GEL TOP SCH ×3 (01:12→17:27)
[2018-12-03] MEDS: Propofol 10 mg/ml 1,000 MG/100 ML VIAL IV SCH ×2 (01:13→05:00)
[2018-12-03 04:40] LABS: ABG ALLEN TEST YES; ARTERIAL BLOOD GAS HCO3 21.5 mmol/L (21-28); ARTERIAL BLOOD GAS O2 CONTENT 11.1 ML/dL (15-23); ARTERIAL BLOOD GAS O2 SAT 100.9 % (95-98); ARTERIAL BLOOD GAS PCO2 32 mm/Hg (35-45); ARTERIAL BLOOD GAS PO2 111 mm/Hg (80-100); ARTERIAL BLOOD GAS TCO2 20.8 mmol/L (22-28)
[2018-12-03] MEDS: Heparin 25,000units in D5W 25,000 UNITS/250 ML BAG IV SCH (05:50)
[2018-12-03 06:22] LABS: HEMOGLOBIN 8.2 g/dL (12.0-16.0); MEAN CELL VOLUME 93.4 fl (81.0-99.0); MEAN CORPUSCULAR HEMOGLOBIN 30.7 pg (27.0-31.0); MEAN CORPUSCULAR HGB CONC 32.8 g/dL (33.0-37.0); RBC 2.69 Mil/uL (3.80-5.20); RED CELL DISTRIBUTION WIDTH 15.3 % (11.5-14.5); WHITE BLOOD COUNT 13.5 K/uL (4.8-10.8)
[2018-12-03 06:29] LABS: CALCIUM 7.8 mg/dL (8.4-10.2)
--- NOTE | 2018-12-03 07:52 | RAD ---
Date of service: 12/03/2018 HISTORY: pneumonia COMPARISON: Chest x-ray 12/02/2018 TECHNIQUE: Chest one view . FINDINGS: LUNGS: Again seen are diffuse bilateral airspace opacities, right greater than left, minimally decreased from prior exam. Endotracheal tube tip is above the tomas. PLEURA: No pleural effusion is identified. CARDIOVASCULAR: Stable cardiomegaly. Atherosclerotic calcifications present of the aorta. Stable right-sided central venous catheter with tip overlying the region of the SVC. OSSEOUS STRUCTURES: No acute fracture identified. Median sternotomy wires noted. VISUALIZED UPPER ABDOMEN: There is an enteric feeding tube with tip extending below the diaphragm and excluded from the confines of the image. OTHER FINDINGS: None IMPRESSION: Minimal decrease in diffuse bilateral airspace opacities. Additional findings as above.
[2018-12-03] MEDS: Azithromycin 500 MG in Sodium Chloride 0.9% 250 ML IVPB SCH (08:30)
--- NOTE | 2018-12-03 09:17 | CP.PCM.PN ---
Subjective - Date & Time of Evaluation Date of Evaluation: 12/03/18 Time of Evaluation: 09:17 - Subjective Subjective: Seen on rounds in the ICU with the resident this morning. Full note entered by the resident was reviewed and accurately describes our fi ndings and plan of care. Objective - Vital Signs/Intake and Output Vital Signs (last 24 hours): Temp Pulse Resp BP Pulse Ox 99.0 F 109 H 21 106/50 L 94 L 12/03/18 08:00 12/03/18 08:28 12/03/18 08:00 12/03/18 08:28 12/03/18 08:00 Intake and Output: 12/02/18 12/03/18 23:59 11:59 Intake Total 1947 1440 Output Total 700 325 Balance 1247 1115 - Medications Medications: Current Medications Acetaminophen (Tylenol 325mg Tab) 650 mg PO Q6H PRN PRN Reason: Pain (1-10) Last Admin: 12/01/18 11:20 Dose: 650 mg Acetaminophen (Tylenol 325mg Tab) 650 mg PO Q6H PRN PRN Reason: Fever >100.4 F Last Admin: 11/28/18 06:07 Dose: 650 mg Acetaminophen (Tylenol 160mg/5ml Oral Soln) 160 mg PO ONCE PRN PRN Reason: Flu symptoms Albuterol/Ipratropium (Duoneb 3 Mg/0.5 Mg (3 Ml) Ud) 3 ml INH RQ6 [facility] Last Admin: 12/03/18 07:33 Dose: 3 ml Atorvastatin Calcium (Lipitor) 40 mg PO DAILY [facility] Last Admin: 12/03/18 08:21 Dose: 40 mg Dimethicone (Proshield Plus Skin Protectant) 1 applic TOP Q8 [facility] Last Admin: 12/03/18 08:23 Dose: 1 applic Azithromycin 500 mg/ Sodium (Chloride) 250 mls @ 250 mls/hr IVPB DAILY [facility]; Protocol Last Admin: 12/03/18 08:30 Dose: 250 mls/hr Heparin Sodium/Dextrose (Heparin 25,000 Units/250ml In D5w) 25,000 units in 250 mls @ 11 mls/hr IV .[id number] [facility]; Protocol Last Admin: 12/03/18 05:50 Dose: 11 mls/hr Propofol (Diprivan) 1,000 mg in 100 mls @ 19.211 mls/hr IV .Q5H13M [facility]; Protocol Stop: 12/03/18 23:51 Last Titration: 12/03/18 07:30 Dose: 0 mcg/kg/min, 0 mls/hr Metoprolol Tartrate (Lopressor) 12.5 mg PO Q12 [facility] Last Admin: 12/03/18 08:28 Dose: 12.5 mg Nystatin (Nystop Topical Powder) 1 applic TOP TID [facility] Last Admin: 12/03/18 08:23 Dose: 1 applic Pantoprazole Sodium (Protonix Inj) 40 mg IVP Q12 [facility] Last Admin: 12/03/18 08:23 Dose: 40 mg - Labs Labs: 12/03/18 05:40 12/03/18 05:40 PT 11.6 Seconds (9.8-13.1) 12/02/18 21:15 INR 1.0 12/02/18 21:15 APTT 43.2 Seconds (25.6-37.1) H 12/03/18 05:40 Assessment and Plan (1) Respiratory failure with hypoxia and hypercapnia Status: Acute (2) Influenza A Status: Acute (3) Pneumonia and influenza Status: Acute (4) Morbid obesity Status: Chronic (5) COPD (chronic obstructive pulmonary disease) Status: Suspected
--- NOTE | 2018-12-03 10:30 | CP.PCM.PN ---
<Celestine Calhoun - Last Filed: 12/03/18 18:46> Subjective - Date & Time of Evaluation Date of Evaluation: 12/03/18 Time of Evaluation: 10:28 - Subjective Subjective: Celestine Calhoun DO PGY1 - Internal Medicine [employer] Technician - Cardiology Note for Dr. Sutton Patient was seen and examined at bedside this morning, vital signs reviewed. Patient was mildly hypotensive MAP 60 to 70. Some tachycardia appreciated. Patient is often sedation, continues to be intubated, awake and following commands Objective - Vital Signs/Intake and Output Vital Signs (last 24 hours): Temp Pulse Resp BP Pulse Ox 99.0 F 99 H 22 94/51 L 96 12/03/18 08:00 12/03/18 10:00 12/03/18 10:00 12/03/18 10:00 12/03/18 10:00 Intake and Output: 12/03/18 12/03/18 06:59 18:59 Intake Total 1937 780 Output Total 725 Balance 1212 780 - Medications Medications: Current Medications Acetaminophen (Tylenol 325mg Tab) 650 mg PO Q6H PRN PRN Reason: Pain (1-10) Last Admin: 12/01/18 11:20 Dose: 650 mg Acetaminophen (Tylenol 325mg Tab) 650 mg PO Q6H PRN PRN Reason: Fever >100.4 F Last Admin: 11/28/18 06:07 Dose: 650 mg Acetaminophen (Tylenol 160mg/5ml Oral Soln) 160 mg PO ONCE PRN PRN Reason: Flu symptoms Albuterol/Ipratropium (Duoneb 3 Mg/0.5 Mg (3 Ml) Ud) 3 ml INH RQ6 [facility] Last Admin: 12/03/18 07:33 Dose: 3 ml Atorvastatin Calcium (Lipitor) 40 mg PO DAILY [facility] Last Admin: 12/03/18 08:21 Dose: 40 mg Dimethicone (Proshield Plus Skin Protectant) 1 applic TOP Q8 [facility] Last Admin: 12/03/18 08:23 Dose: 1 applic Azithromycin 500 mg/ Sodium (Chloride) 250 mls @ 250 mls/hr IVPB DAILY [facility]; Protocol Last Admin: 12/03/18 08:30 Dose: 250 mls/hr Heparin Sodium/Dextrose (Heparin 25,000 Units/250ml In D5w) 25,000 units in 250 mls @ 11 mls/hr IV .[id number] [facility]; Protocol Last Admin: 12/03/18 05:50 Dose: 11 mls/hr Propofol (Diprivan) 1,000 mg in 100 mls @ 19.211 mls/hr IV .Q5H13M [facility]; Protocol Stop: 12/03/18 23:51 Last Titration: 12/03/18 07:30 Dose: 0 mcg/kg/min, 0 mls/hr Metoprolol Tartrate (Lopressor) 12.5 mg PO Q12 [facility] Last Admin: 12/03/18 08:28 Dose: 12.5 mg Nystatin (Nystop Topical Powder) 1 applic TOP TID [facility] Last Admin: 12/03/18 08:23 Dose: 1 applic Pantoprazole Sodium (Protonix Inj) 40 mg IVP Q12 [facility] Last Admin: 12/03/18 08:23 Dose: 40 mg - Labs Labs: 12/03/18 05:40 12/03/18 05:40 PT 11.6 Seconds (9.8-13.1) 12/02/18 21:15 INR 1.0 12/02/18 21:15 APTT 43.2 Seconds (25.6-37.1) H 12/03/18 05:40 - Constitutional Appears: Non-toxic, No Acute Distress - Head Exam Head Exam: ATRAUMATIC, NORMOCEPHALIC - Eye Exam Eye Exam: EOMI, Normal appearance, PERRL. absent: Scleral icterus - ENT Exam Additional comments: ET tube in place - Respiratory Exam Respiratory Exam: Rhonchi, Wheezes, NORMAL BREATHING PATTERN. absent: Clear to Ausculation Bilateral Additional comments: Mild crackles appreciated bilaterally - Cardiovascular Exam Cardiovascular Exam: RRR, +S1, +S2 Additional comments: No click appreciated on exam - GI/Abdominal Exam GI & Abdominal Exam: Soft. absent: Tenderness Additional comments: Obese - Extremities Exam Additional comments: BL LE PT/DP 2+ - Neurological Exam Neurological Exam: Alert, Awake Additional comments: Following commands Moving extremities Off of sedation - Skin Skin Exam: Dry, Intact, Warm Assessment and Plan (1) CAP (community acquired pneumonia) Status: Acute (2) CHF exacerbation Status: Acute (3) NSTEMI (non-ST elevated myocardial infarction) Status: Acute (4) Morbid obesity Status: Chronic (5) COPD (chronic obstructive pulmonary disease) Status: Suspected - Assessment and Plan (Free Text) Plan: Plan for WOLFGANG 12/04 AM Follow up AM BNP Continue heparin Drip - PTT Goal 40-50 Can consider resuming antiplatelet (ASA) if Hb continues to remain stable Continue Metropol 12.5 Q12. Hb stable from yesterday <Isaak Sutton - Last Filed: 12/08/18 11:55> Objective - Vital Signs/Intake and Output Vital Signs (last 24 hours): Temp Pulse Resp BP Pulse Ox 98.6 F 100 H 17 101/48 L 98 12/08/18 08:00 12/08/18 11:00 12/08/18 11:00 12/08/18 11:00 12/08/18 11:00 Intake and Output: 12/08/18 12/08/18 06:59 18:59 Intake Total 1793 814 Output Total 2900 200 Balance -1107 614 - Medications Medications: Current Medications Acetaminophen (Tylenol 325mg Tab) 650 mg PO Q6H PRN PRN Reason: Pain (1-10) Last Admin: 12/06/18 21:17 Dose: 650 mg Acetaminophen (Tylenol 325mg Tab) 650 mg PO Q6H PRN PRN Reason: Fever >100.4 F Last Admin: 11/28/18 06:07 Dose: 650 mg Acetaminophen (Tylenol 160mg/5ml Oral Soln) 160 mg PO ONCE PRN PRN Reason: Flu symptoms Albuterol/Ipratropium (Duoneb 3 Mg/0.5 Mg (3 Ml) Ud) 3 ml INH RQ6 [facility] Last Admin: 12/08/18 08:01 Dose: 3 ml Atorvastatin Calcium (Lipitor) 40 mg PO DAILY [facility] Last Admin: 12/08/18 08:05 Dose: 40 mg Dimethicone (Proshield Plus Skin Protectant) 1 applic TOP Q8 [facility] Last Admin: 12/08/18 08:21 Dose: 1 applic Furosemide 100 mg/ Sodium (Chloride) 100 mls @ 10 mls/hr IV .Q10H [facility]; Protocol Last Admin: 12/08/18 05:27 Dose: 10 mls/hr Aztreonam 1 gm/ Sodium (Chloride) 100 mls @ 100 mls/hr IVPB Q12 [facility]; Protocol Last Admin: 12/08/18 08:03 Dose: 100 mls/hr Linezolid (Zyvox 600mg/300ml D5w) 600 mg in 300 mls @ 300 mls/hr IVPB Q12 [facility]; Protocol Last Admin: 12/08/18 08:24 Dose: 300 mls/hr Heparin Sodium/Dextrose (Heparin 25,000 Units/250ml In D5w) 25,000 units in 250 mls @ 18 mls/hr IV .[id number] [facility]; Protocol Stop: 12/08/18 18:59 Last Titration: 12/08/18 08:10 Dose: 19 mls/hr Metoprolol Tartrate (Lopressor) 12.5 mg PO Q12 [facility] Last Admin: 12/08/18 09:51 Dose: 12.5 mg Morphine Sulfate (Morphine) 4 mg IVP Q4 PRN PRN Reason: Agitation Last Admin: 12/08/18 05:29 Dose: 4 mg Nystatin (Nystop Topical Powder) 1 applic TOP TID [facility] Last Admin: 12/08/18 08:45 Dose: 1 applic Pantoprazole Sodium (Protonix Inj) 40 mg IVP Q12 [facility] Last Admin: 12/08/18 08:22 Dose: 40 mg - Labs Labs: 12/08/18 04:30 12/08/18 04:30 PT 11.8 Seconds (9.8-13.1) 12/08/18 04:30 INR 1.0 12/08/18 04:30 APTT 36.4 Seconds (25.6-37.1) 12/08/18 04:30 Assessment and Plan (1) NSTEMI (non-ST elevated myocardial infarction) Status: Acute (2) CAP (community acquired pneumonia) Status: Acute (3) CHF exacerbation Status: Acute (4) Respiratory distress Status: Acute (5) Respiratory failure with hypoxia and hypercapnia Status: Acute (6) History of aortic valve replacement Status: Chronic (7) Morbid obesity Status: Chronic (8) COPD (chronic obstructive pulmonary disease) Status: Suspected Attending/Attestation - Attestation I have personally seen and examined this patient.: Yes I have fully participated in the care of the patient.: Yes I have reviewed all pertinent clinical information, including history, physical exam and plan: Yes
--- NOTE | 2018-12-03 11:10 | CP.CCUPN ---
CCU Subjective - Physician Review Subjective (Free Text): Re-sedated on 15mcg dose Propofol, at RASS neg 4, calm, Got placed onto AC mode this AM due to tachypnea and vent asynchrony. Remains on 40% oxygen with 96% SPO2. On heparin drip, no active bleeding evident, NSS at 75 ml/hr. Pulm weaning attempts noted, has been on SIMV PS, before switch over to AC mode this AM. She is oliguric with 625ml urine output over last 24H. 99F with Tmax 100.5F overnight, SBP 90's, with MAP at65, HR 90's, RR 19-21, SPo2 95% on 40% oxygen. ROS: No other pertinent negs or positives on 10+ system review- unobtainable due to sedation. PMSFH: All other Nursing and physician documentation reviewed to date; no new pertinent info noted relevant to current medical problems. EXAM- HEENT: no icterus, no gaze preference NECK: No JVD visible given short neck and overall obesity, supple, carotids equal upstroke bilat/no bruit. Underlying ecchymoses and hematoma noted; no increase in size or extent from previous descriptions. CHEST: Unchanged upper chest ecchymoses noted extending form R shoulder across upper chest to left side; decreased BS at the bases, especially R base; no wheezes audible bilaterally. HEART: regular, distant, S1S2, no rubs or murmurs noted ABD: soft and obese, nontender, no guarding, no organomegaly, BS hypoactive. EXT: no leg edema, no calf tenderness or palpable cords, distal pulses intact and symmetrical. NEURO: sedated, + tone in all extremities. SKIN: no rashes, warm and dry LABS: WBC= 13.5 HGB= 8.2 PLTs= 254K PTT = 43.2 7.40/32/111 Na= 145 K= 4.2 CL= 106 HCO3= 25 BUN/Cr= 85/4.9 BS= 104 CXR: (my interp)- ETT tip OK above tomas, bilateral scattered interstitial changes, R worse than L. Overall poor technical study. IMPRESSION / MAJOR PROBLEMS NOW: 1. Acute hypercarbic resp failure 2 COPD Exacerbation /Bilat pneumonia, NSTEMI with Acute Pulm Edema 2. Influenza Viral resp infection, r/o superimposed bilateral bacterial PNA 3. GI bleed (r/o stress gastritis versus other colitis disorder) and diffuse upper chest and neck ecchymoses (from previous R subclavian and R IJ vein venipuncture attempts during TLC placement) from warfarin coagulopathy. 4. SEDA, r/o ATN, versus pre-renal Azotemia 5. s /p AVR, on AC with heparin drip 6. Morbid obesity PLAN: 1. IVFs stopped, consider early FISHER HOOP NET for fluid removal. Will discuss with Nephrology. 2. No new organisms isolated on cultures, on empiric Azithro / Zosyn adjusted for renal insuff. Last day of Tamiflu therapy yesterday. Needs PICC line to replace R IJV TLC (PICC procedure cancelled by IR yesterday), repeat BCs. 3. Sub-optimal ECHO study noted, Cardio eval. Lasix stopped. ? WOLFGANG to assess for LVfx, and r/o vegetations. Check VBG, lactate level. 4. Serial Hb levels stabilized after 4 units total PRBCs, on heparin drip for arterial thromboembolic prophylaxis with prosthetic AV. 5. Re-try MV weans / SBTs. Acceptable SPo2 on 40% oxygen, despite non- resolving CXR changes.
[2018-12-03] MEDS ORDERED: Lidocaine 1% Inj (20ml) ONE (11:34)
--- NOTE | 2018-12-03 11:48 | CP.PCM.PN ---
Subjective - Date & Time of Evaluation Date of Evaluation: 12/03/18 Time of Evaluation: 08:00 - Subjective Subjective: Pt seen and examined at bedside this AM. Pt was on SIMV with Ps, however, this morning was noted to by tachypneic and switched to AC with sedation. Objective - Vital Signs/Intake and Output Vital Signs (last 24 hours): Temp Pulse Resp BP Pulse Ox 99.0 F 99 H 22 94/51 L 96 12/03/18 08:00 12/03/18 10:00 12/03/18 10:00 12/03/18 10:00 12/03/18 10:00 Intake and Output: 12/03/18 12/03/18 06:59 18:59 Intake Total 1937 780 Output Total 725 Balance 1212 780 - Medications Medications: Current Medications Acetaminophen (Tylenol 325mg Tab) 650 mg PO Q6H PRN PRN Reason: Pain (1-10) Last Admin: 12/01/18 11:20 Dose: 650 mg Acetaminophen (Tylenol 325mg Tab) 650 mg PO Q6H PRN PRN Reason: Fever >100.4 F Last Admin: 11/28/18 06:07 Dose: 650 mg Acetaminophen (Tylenol 160mg/5ml Oral Soln) 160 mg PO ONCE PRN PRN Reason: Flu symptoms Albuterol/Ipratropium (Duoneb 3 Mg/0.5 Mg (3 Ml) Ud) 3 ml INH RQ6 [facility] Last Admin: 12/03/18 07:33 Dose: 3 ml Atorvastatin Calcium (Lipitor) 40 mg PO DAILY [facility] Last Admin: 12/03/18 08:21 Dose: 40 mg Dimethicone (Proshield Plus Skin Protectant) 1 applic TOP Q8 [facility] Last Admin: 12/03/18 08:23 Dose: 1 applic Furosemide (Lasix) 100 mg IV ONCE ONE Stop: 12/03/18 11:42 Azithromycin 500 mg/ Sodium (Chloride) 250 mls @ 250 mls/hr IVPB DAILY [facility]; Protocol Last Admin: 12/03/18 08:30 Dose: 250 mls/hr Heparin Sodium/Dextrose (Heparin 25,000 Units/250ml In D5w) 25,000 units in 250 mls @ 11 mls/hr IV .[id number] [facility]; Protocol Last Admin: 12/03/18 05:50 Dose: 11 mls/hr Propofol (Diprivan) 1,000 mg in 100 mls @ 19.211 mls/hr IV .Q5H13M [facility]; Protocol Stop: 12/03/18 23:51 Last Titration: 12/03/18 07:30 Dose: 0 mcg/kg/min, 0 mls/hr Furosemide 100 mg/ Sodium (Chloride) 100 mls @ 10 mls/hr IV .Q10H [facility]; Protocol Metoprolol Tartrate (Lopressor) 12.5 mg PO Q12 [facility] Last Admin: 12/03/18 08:28 Dose: 12.5 mg Nystatin (Nystop Topical Powder) 1 applic TOP TID [facility] Last Admin: 12/03/18 08:23 Dose: 1 applic Pantoprazole Sodium (Protonix Inj) 40 mg IVP Q12 [facility] Last Admin: 12/03/18 08:23 Dose: 40 mg - Labs Labs: 12/03/18 05:40 12/03/18 05:40 PT 11.6 Seconds (9.8-13.1) 12/02/18 21:15 INR 1.0 12/02/18 21:15 APTT 43.2 Seconds (25.6-37.1) H 12/03/18 05:40 - Constitutional Appears: Other (s/p sedation) - Respiratory Exam Respiratory Exam: Rales, Rhonchi Additional comments: Ventillation on AC Physical signs of 3rd spacing - Cardiovascular Exam Cardiovascular Exam: Tachycardia, +S1, +S2 - GI/Abdominal Exam GI & Abdominal Exam: Distended, Rigid, Hypoactive Bowel Sounds Assessment and Plan (1) Influenza A Status: Acute (2) Pneumonia and influenza Status: Acute (3) Respiratory failure with hypoxia and hypercapnia Status: Acute (4) Morbid obesity Status: Chronic (5) COPD (chronic obstructive pulmonary disease) Status: Suspected - Assessment and Plan (Free Text) Assessment: 58 yo F with pmhx of HTN, COPD, hx of aortic valve replacement and morbid obesity admitted for respiratory failure with hypoxia and cypercapnia, Influenza A, Pneumonia Plan: Labs and imaging reviewed Continue with current Ventilation on AC 3rd spacing with fluid retention: will discuss options with nephrology: recs a ppreciated DDX: obesity hypoventilation PICC Line to be placed today Per cardio: WOLFGANG tomorrow 5 Day course of Tamiflu completed; may d/c airborne precaution Continue Duonebs, Azithromycin f/u procalcitonin, WOLFGANG Case and plan d/w Dr. Snow Alberto MD PGY-2
--- NOTE | 2018-12-03 12:44 | PCM.SURG1 ---
Surgeon's Initial Post Op Note - Surgeon's Notes Surgeon: Juancarlos Ramos MD Anodizer: NONE Type of Anesthesia: Local Pre-Operative Diagnosis: Poor venous access, infection Operative Findings: US showed a patent cephalic vein. Basilic and brachial vein and not accessible because of small size and depth. Post-Operative Diagnosis: Poor venous access, infection Operation Performed: Single lumen picc placement right cephalic vein Specimen/Specimens Removed: none Estimated Blood Loss: EBL {In ML}: 5 Blood Products Given: N/A Drains Used: No Drains Post-Op Condition: Poor Date of Surgery/Procedure: 12/03/18 Time of Surgery/Procedure: 12:40
--- NOTE | 2018-12-03 13:16 | CP.PCM.PN ---
Subjective - Date & Time of Evaluation Date of Evaluation: 12/03/18 Time of Evaluation: 13:18 - Subjective Subjective: No significant changes: 1.Patient still on vent support sedated, but arousable 2.S/P Poly transfused the H/H is stable. 3.The renal failure is persistent. 4.Pneumonia with influenza associated to severe broncospasm and respiratory fail ure. 5.on anti coagulation secondary to AVR (metallic) to prevent cerebro vascular accident and protect the valve. The condition was discussed with the family and customer solutions coordinator. Discussed with cardiology to perform WOLFGANG to evaluate the valve status and the EF Objective - Vital Signs/Intake and Output Vital Signs (last 24 hours): Temp Pulse Resp BP Pulse Ox 99.0 F 82 14 107/77 97 12/03/18 12:00 12/03/18 12:44 12/03/18 12:44 12/03/18 12:44 12/03/18 12:44 Intake and Output: 12/03/18 12/03/18 11:59 23:59 Intake Total 2173 Output Total 325 Balance 1848 - Medications Medications: Current Medications Acetaminophen (Tylenol 325mg Tab) 650 mg PO Q6H PRN PRN Reason: Pain (1-10) Last Admin: 12/01/18 11:20 Dose: 650 mg Acetaminophen (Tylenol 325mg Tab) 650 mg PO Q6H PRN PRN Reason: Fever >100.4 F Last Admin: 11/28/18 06:07 Dose: 650 mg Acetaminophen (Tylenol 160mg/5ml Oral Soln) 160 mg PO ONCE PRN PRN Reason: Flu symptoms Albuterol/Ipratropium (Duoneb 3 Mg/0.5 Mg (3 Ml) Ud) 3 ml INH RQ6 [facility] Last Admin: 12/03/18 07:33 Dose: 3 ml Atorvastatin Calcium (Lipitor) 40 mg PO DAILY [facility] Last Admin: 12/03/18 08:21 Dose: 40 mg Dimethicone (Proshield Plus Skin Protectant) 1 applic TOP Q8 [facility] Last Admin: 12/03/18 08:23 Dose: 1 applic Azithromycin 500 mg/ Sodium (Chloride) 250 mls @ 250 mls/hr IVPB DAILY [facility]; Protocol Last Admin: 12/03/18 08:30 Dose: 250 mls/hr Heparin Sodium/Dextrose (Heparin 25,000 Units/250ml In D5w) 25,000 units in 250 mls @ 11 mls/hr IV .[id number] [facility]; Protocol Last Admin: 12/03/18 05:50 Dose: 11 mls/hr Propofol (Diprivan) 1,000 mg in 100 mls @ 19.211 mls/hr IV .Q5H13M [facility]; P rotocol Stop: 12/03/18 23:51 Last Titration: 12/03/18 07:30 Dose: 0 mcg/kg/min, 0 mls/hr Furosemide 100 mg/ Sodium (Chloride) 100 mls @ 10 mls/hr IV .Q10H [facility]; Protocol Metoprolol Tartrate (Lopressor) 12.5 mg PO Q12 [facility] Last Admin: 12/03/18 08:28 Dose: 12.5 mg Nystatin (Nystop Topical Powder) 1 applic TOP TID [facility] Last Admin: 12/03/18 08:23 Dose: 1 applic Pantoprazole Sodium (Protonix Inj) 40 mg IVP Q12 [facility] Last Admin: 12/03/18 08:23 Dose: 40 mg - Labs Labs: 12/03/18 05:40 12/03/18 05:40 PT 11.6 Seconds (9.8-13.1) 12/02/18 21:15 INR 1.0 12/02/18 21:15 APTT 43.2 Seconds (25.6-37.1) H 12/03/18 05:40 Assessment and Plan (1) CAP (community acquired pneumonia) Status: Acute (2) CHF exacerbation Status: Acute (3) DVT prophylaxis Status: Acute (4) History of aortic valve replacement Status: Chronic (5) Influenza A Status: Acute (6) NSTEMI (non-ST elevated myocardial infarction) Status: Acute (7) Pneumonia and influenza Status: Acute (8) Respiratory distress Status: Acute (9) Respiratory failure with hypoxia and hypercapnia Status: Acute (10) Morbid obesity Status: Chronic (11) COPD (chronic obstructive pulmonary disease) Status: Suspected (12) Myocardial ischemia Status: Acute (13) Renal failure, acute Status: Acute (14) Hematoma Status: Acute - Assessment and Plan (Free Text) Plan: As above
[2018-12-03] MEDS: Furosemide 100 MG in Sodium Chloride 0.9% 100 ML IV SCH (13:30)
--- NOTE | 2018-12-03 15:21 | CP.PCM.PN ---
Subjective - Date & Time of Evaluation Date of Evaluation: 12/03/18 Time of Evaluation: 15:20 - Subjective Subjective: no overnight events Objective - Vital Signs/Intake and Output Vital Signs (last 24 hours): Temp Pulse Resp BP Pulse Ox 99.0 F 100 H 17 96/55 L 97 12/03/18 12:00 12/03/18 14:00 12/03/18 14:00 12/03/18 14:00 12/03/18 14:00 Intake and Output: 12/03/18 12/03/18 06:59 18:59 Intake Total 1937 890 Output Total 725 Balance 1212 890 - Medications Medications: Current Medications Acetaminophen (Tylenol 325mg Tab) 650 mg PO Q6H PRN PRN Reason: Pain (1-10) Last Admin: 12/01/18 11:20 Dose: 650 mg Acetaminophen (Tylenol 325mg Tab) 650 mg PO Q6H PRN PRN Reason: Fever >100.4 F Last Admin: 11/28/18 06:07 Dose: 650 mg Acetaminophen (Tylenol 160mg/5ml Oral Soln) 160 mg PO ONCE PRN PRN Reason: Flu symptoms Albuterol/Ipratropium (Duoneb 3 Mg/0.5 Mg (3 Ml) Ud) 3 ml INH RQ6 [facility] Last Admin: 12/03/18 13:28 Dose: 3 ml Atorvastatin Calcium (Lipitor) 40 mg PO DAILY [facility] Last Admin: 12/03/18 08:21 Dose: 40 mg Dimethicone (Proshield Plus Skin Protectant) 1 applic TOP Q8 [facility] Last Admin: 12/03/18 08:23 Dose: 1 applic Azithromycin 500 mg/ Sodium (Chloride) 250 mls @ 250 mls/hr IVPB DAILY [facility]; Protocol Last Admin: 12/03/18 08:30 Dose: 250 mls/hr Heparin Sodium/Dextrose (Heparin 25,000 Units/250ml In D5w) 25,000 units in 250 mls @ 11 mls/hr IV .[id number] [facility]; Protocol Last Titration: 12/03/18 13:05 Dose: 11 mls/hr Propofol (Diprivan) 1,000 mg in 100 mls @ 19.211 mls/hr IV .Q5H13M [facility]; Protocol Stop: 12/03/18 23:51 Last Titration: 12/03/18 07:30 Dose: 0 mcg/kg/min, 0 mls/hr Furosemide 100 mg/ Sodium (Chloride) 100 mls @ 10 mls/hr IV .Q10H [facility]; Protocol Last Admin: 12/03/18 13:30 Dose: 10 mls/hr Metoprolol Tartrate (Lopressor) 12.5 mg PO Q12 [facility] Last Admin: 12/03/18 08:28 Dose: 12.5 mg Nystatin (Nystop Topical Powder) 1 applic TOP TID [facility] Last Admin: 12/03/18 13:38 Dose: 1 applic Pantoprazole Sodium (Protonix Inj) 40 mg IVP Q12 [facility] Last Admin: 12/03/18 08:23 Dose: 40 mg - Labs Labs: 12/03/18 05:40 12/03/18 05:40 PT 11.6 Seconds (9.8-13.1) 12/02/18 21:15 INR 1.0 12/02/18 21:15 APTT 43.2 Seconds (25.6-37.1) H 12/03/18 05:40 - Head Exam Head Exam: NORMOCEPHALIC - Neck Exam Neck Exam: Normal Inspection - Respiratory Exam Respiratory Exam: Rhonchi, Wheezes - Cardiovascular Exam Cardiovascular Exam: REGULAR RHYTHM - GI/Abdominal Exam GI & Abdominal Exam: Soft, Normal Bowel Sounds Assessment and Plan - Assessment and Plan (Free Text) Assessment: 58 yo female with anemia hgb stable no bleeding transfuse prn
[2018-12-03 19:21] LABS: PROTHROMBIN TIME 11.3 Seconds (9.8-13.1)
[2018-12-03 19:24] LABS: PARTIAL THROMBOPLASTIN TIME 35.6 Seconds (25.6-37.1)
--- NOTE | 2018-12-03 20:07 | CP.PCM.PN ---
Subjective - Date & Time of Evaluation Date of Evaluation: 12/03/18 Time of Evaluation: 11:45 - Subjective Subjective: Patient still intubated; alert, follows commands; PICC line inserted today; Objective - Vital Signs/Intake and Output Vital Signs (last 24 hours): Temp Pulse Resp BP Pulse Ox 98.6 F 104 H 18 105/52 L 95 12/03/18 16:00 12/03/18 19:00 12/03/18 19:00 12/03/18 19:00 12/03/18 19:00 Intake and Output: 12/03/18 12/04/18 18:59 06:59 Intake Total 1755 Output Total 750 Balance 1005 - Medications Medications: Current Medications Acetaminophen (Tylenol 325mg Tab) 650 mg PO Q6H PRN PRN Reason: Pain (1-10) Last Admin: 12/01/18 11:20 Dose: 650 mg Acetaminophen (Tylenol 325mg Tab) 650 mg PO Q6H PRN PRN Reason: Fever >100.4 F Last Admin: 11/28/18 06:07 Dose: 650 mg Acetaminophen (Tylenol 160mg/5ml Oral Soln) 160 mg PO ONCE PRN PRN Reason: Flu symptoms Albuterol/Ipratropium (Duoneb 3 Mg/0.5 Mg (3 Ml) Ud) 3 ml INH RQ6 [facility] Last Admin: 12/03/18 19:17 Dose: 3 ml Atorvastatin Calcium (Lipitor) 40 mg PO DAILY [facility] Last Admin: 12/03/18 08:21 Dose: 40 mg Dimethicone (Proshield Plus Skin Protectant) 1 applic TOP Q8 [facility] Last Admin: 12/03/18 17:27 Dose: 1 applic Azithromycin 500 mg/ Sodium (Chloride) 250 mls @ 250 mls/hr IVPB DAILY [facility]; Protocol Last Admin: 12/03/18 08:30 Dose: 250 mls/hr Propofol (Diprivan) 1,000 mg in 100 mls @ 19.211 mls/hr IV .Q5H13M [facility]; Protocol Stop: 12/03/18 23:51 Last Titration: 12/03/18 07:30 Dose: 0 mcg/kg/min, 0 mls/hr Furosemide 100 mg/ Sodium (Chloride) 100 mls @ 10 mls/hr IV .Q10H [facility]; Protocol Last Admin: 12/03/18 13:30 Dose: 10 mls/hr Metoprolol Tartrate (Lopressor) 12.5 mg PO Q12 [facility] Last Admin: 12/03/18 08:28 Dose: 12.5 mg Nystatin (Nystop Topical Powder) 1 applic TOP TID [facility] Last Admin: 12/03/18 17:27 Dose: 1 applic Pantoprazole Sodium (Protonix Inj) 40 mg IVP Q12 [facility] Last Admin: 12/03/18 08:23 Dose: 40 mg - Labs Labs: 12/03/18 05:40 12/03/18 05:40 PT 11.3 Seconds (9.8-13.1) 12/03/18 19:13 INR 1.0 12/03/18 19:13 APTT 35.6 Seconds (25.6-37.1) 12/03/18 19:13 - Constitutional Appears: Non-toxic, No Acute Distress - Eye Exam Eye Exam: Normal appearance - Respiratory Exam Respiratory Exam: Wheezes. absent: Respiratory Distress - Cardiovascular Exam Cardiovascular Exam: RRR. absent: Gallop, Rubs, Murmur - GI/Abdominal Exam GI & Abdominal Exam: Soft. absent: Distended - Extremities Exam Additional comments: edema of dependent areas - Neurological Exam Neurological Exam: Alert, Awake - Psychiatric Exam Psychiatric exam: absent: Agitated - Skin Skin Exam: Warm. absent: Cyanosis Assessment and Plan (1) Renal failure, acute Assessment & Plan: Clinically consistent with ATN; slower rate of rise in serum creatinine but renal failure is progressing; now non-oliguric with urine output improved, however, still positive fluid balance and concern for worsening CHF; TTE was poor study due to body habitus, awaiting possible WOLFGANG; indication for HD at this point is to achieve net negative fluid balances, however, BP has been borderline low and may not tolerate ultrafiltration on HD; -Discussed with critical care attending; will give trial of lasix drip; 100 mg IVP bolus followed by 10 mg/hr; -If unable to keep net even to negative fluid balance, will consider HD by tomorrow; -Continue to avoid nephrotoxic agents; Status: Acute (2) Acute hypoxemic respiratory failure Assessment & Plan: Improved, relatively low FIO2 requirement but still markedly positive fluid balance; see above; Status: Acute (3) Anemia Assessment & Plan: Stable; monitor; Status: Acute (4) Hypotension Status: Acute
[2018-12-03] MEDS ORDERED: Heparin 25,000units in D5W 25,000 UNITS/250 ML BAG IV SCH (22:45)
[2018-12-04] MEDS: Furosemide 100 MG in Sodium Chloride 0.9% 100 ML IV SCH ×3 (00:30→23:39)
[2018-12-04] MEDS: Proshield Plus GEL TOP SCH ×3 (00:34→16:06)
[2018-12-04] MEDS ORDERED: Chlorhexidine Gluconate 1 APPL/PKT TP ONE (00:40)
[2018-12-04] MEDS: Albuterol-Ipratrop 3 mg / 0.5 (3 ml) UD INH SCH ×4 (01:00→19:15)
[2018-12-04 05:42] LABS: ABG ALLEN TEST YES; ARTERIAL BLOOD GAS HCO3 21.9 mmol/L (21-28); ARTERIAL BLOOD GAS HEMOGLOBIN 7.6 g/dL (11.7-17.4); ARTERIAL BLOOD GAS O2 CAPACITY 10.4 mL/dL (16-24); ARTERIAL BLOOD GAS O2 CONTENT 10.4 ML/dL (15-23); ARTERIAL BLOOD GAS O2 SAT 100.4 % (95-98); ARTERIAL BLOOD GAS PCO2 40 mm/Hg (35-45); ARTERIAL BLOOD GAS PH 7.34 (7.35-7.45); ARTERIAL BLOOD GAS PO2 82 mm/Hg (80-100); ARTERIAL BLOOD GAS TCO2 22.8 mmol/L (22-28)
--- NOTE | 2018-12-04 06:10 | CP.PCM.PCO ---
Physician Communication Note - Physician Communication Note Physician Communication Note: NG tube could be used
[2018-12-04 07:05] LABS: HEMOGLOBIN 7.4 g/dL (12.0-16.0); MEAN CELL VOLUME 92.8 fl (81.0-99.0); MEAN CORPUSCULAR HEMOGLOBIN 30.7 pg (27.0-31.0); MEAN CORPUSCULAR HGB CONC 33.1 g/dL (33.0-37.0); RBC 2.4 Mil/uL (3.80-5.20); RED CELL DISTRIBUTION WIDTH 15.3 % (11.5-14.5); WHITE BLOOD COUNT 12.5 K/uL (4.8-10.8)
[2018-12-04 07:26] LABS: CALCIUM 8.1 mg/dL (8.4-10.2)
--- NOTE | 2018-12-04 08:29 | CP.PCM.PN ---
Subjective - Date & Time of Evaluation Date of Evaluation: 12/04/18 Time of Evaluation: 08:29 - Subjective Subjective: Seen on morning rounds in the intensive care unit. Case was discussed with the rental management trainee. EMR entries were reviewed, labs and chest x-ray also reviewed. Patient is OFF sedation at the present time and awake. Responds to questions with head nodding. Patient indicates she is thirsty and uncomfortable having pain in back and legs. She remains on heparin for anticoagulation. BUN and creatinine now 99 and 5.4 this morning. Repeat stool guiac is still positive, hemoglobin down to 7.4, WBC 12.5, plts 287 and AST 2X ULN. Chest x-ray is very much similar to recent films with vascular congestion, patchy densities, but limited by body habitus. On exam there is persistent dependant edema w/o cyanosis. Rather extensive ecchymosis across the upper/anterior chest wall. No dullness on percussion of the anterior chest, no subcut emphysema. Breath sounds are present in both lungs equally with dry to medium rales in the lower lobes posteriorly. No audible bronchial breath sounds. Faint late expiratory wheezing in lower lobes, more right than left. Heart sounds are distant and regular. Peak airways pressures remain around 30cm with plateau at 26. One bottle of recent blood culture is positive for staph (thru central line). Plan is for ultrafiltration to reduce fluid volume. Will await tentative placement of HD catheter. Will resume vent weaning again later today or tomorrow as tolerated. Oxygenation and acid base balance appear to be stable. Objective - Vital Signs/Intake and Output Vital Signs (last 24 hours): Temp Pulse Resp BP Pulse Ox 99.3 F 107 H 24 97/53 L 94 L 12/04/18 08:00 12/04/18 08:00 12/04/18 08:00 12/04/18 08:00 12/04/18 08:00 Intake and Output: 12/03/18 12/04/18 23:59 11:59 Intake Total 1431 276 Output Total 750 1100 Balance 681 -824 - Medications Medications: Current Medications Acetaminophen (Tylenol 325mg Tab) 650 mg PO Q6H PRN PRN Reason: Pain (1-10) Last Admin: 12/01/18 11:20 Dose: 650 mg Acetaminophen (Tylenol 325mg Tab) 650 mg PO Q6H PRN PRN Reason: Fever >100.4 F Last Admin: 11/28/18 06:07 Dose: 650 mg Acetaminophen (Tylenol 160mg/5ml Oral Soln) 160 mg PO ONCE PRN PRN Reason: Flu symptoms Albuterol/Ipratropium (Duoneb 3 Mg/0.5 Mg (3 Ml) Ud) 3 ml INH RQ6 [facility] Last Admin: 12/04/18 07:39 Dose: 3 ml Atorvastatin Calcium (Lipitor) 40 mg PO DAILY [facility] Last Admin: 12/03/18 08:21 Dose: 40 mg Dimethicone (Proshield Plus Skin Protectant) 1 applic TOP Q8 [facility] Last Admin: 12/04/18 00:34 Dose: 1 applic Azithromycin 500 mg/ Sodium (Chloride) 250 mls @ 250 mls/hr IVPB DAILY [facility]; Protocol Last Admin: 12/03/18 08:30 Dose: 250 mls/hr Furosemide 100 mg/ Sodium (Chloride) 100 mls @ 10 mls/hr IV .Q10H [facility]; Protocol Last Admin: 12/04/18 00:30 Dose: 10 mls/hr Heparin Sodium/Dextrose (Heparin 25,000 Units/250ml In D5w) 25,000 units in 250 mls @ 12 mls/hr IV .[id number] [facility]; Protocol Last Admin: 12/04/18 00:35 Dose: 12 mls/hr Metoprolol Tartrate (Lopressor) 12.5 mg PO Q12 [facility] Last Admin: 12/03/18 21:17 Dose: 12.5 mg Nystatin (Nystop Topical Powder) 1 applic TOP TID [facility] Last Admin: 12/03/18 17:27 Dose: 1 applic Pantoprazole Sodium (Protonix Inj) 40 mg IVP Q12 [facility] Last Admin: 12/03/18 21:17 Dose: 40 mg - Labs Labs: 12/04/18 06:40 12/04/18 06:40 PT 11.3 Seconds (9.8-13.1) 12/03/18 19:13 INR 1.0 12/03/18 19:13 APTT 35.6 Seconds (25.6-37.1) 12/03/18 19:13 Assessment and Plan (1) Respiratory failure with hypoxia and hypercapnia Status: Acute (2) Influenza A Status: Acute (3) Pneumonia and influenza Status: Acute (4) Morbid obesity Status: Chronic (5) COPD (chronic obstructive pulmonary disease) Status: Suspected
[2018-12-04] MEDS: Azithromycin 500 MG in Sodium Chloride 0.9% 250 ML IVPB SCH (08:39)
[2018-12-04] MEDS: Morphine 4 MG/ML VIAL IVP PRN ×3 (09:01→22:45)
--- NOTE | 2018-12-04 10:27 | RAD ---
Date of service: 12/04/2018 HISTORY: intubated/ ngt placement COMPARISON: No prior. FINDINGS: LUNGS: Persistent opacity at right base. Questionable patchy opacities elsewhere bilaterally. Follow-up advised. PLEURA: No significant pleural effusion identified, no pneumothorax apparent. CARDIOVASCULAR: there is atherosclerotic calcification of the aortic arch. Normal heart size. Sternotomy wires. ETT and NG tube. Right IJ central venous catheter. Right PICC catheter. OSSEOUS STRUCTURES: No significant abnormalities. VISUALIZED UPPER ABDOMEN: Normal. OTHER FINDINGS: None. IMPRESSION: Right basilar opacity. Possible pneumonia. Follow-up advised. Possible patchy opacities elsewhere. Cannot rule out multifocal pneumonia. ETT, NG tube, right IJ central venous catheter and right PICC catheter are noted.
[2018-12-04] MEDS ORDERED: Midazolam 2 MG/2 ML VIAL ONE (10:48)
[2018-12-04] MEDS ORDERED: Midazolam 2 MG/2 ML VIAL IV ONE (10:54)
--- NOTE | 2018-12-04 10:55 | CP.PCM.PN ---
<Celestine Calhoun - Last Filed: 12/04/18 18:14> Subjective - Date & Time of Evaluation Date of Evaluation: 12/04/18 Time of Evaluation: 11:49 - Subjective Subjective: Celestine Calhoun DO PGY1 - Internal Medicine Speaking Unit Assembler - Cardiology Note for Dr. Sutton Patient seen and examined at bedside this morning. No acute events reported overnight. Map is maintained above 65, patient however shows very mild tachycardia. Will plan for transesophageal echo cardio gram this morning for a valuation of mitral valve function as well as cardiac function. Procedure risk and benefits explained with family, family has consented, all questions answered. Patient is often sedation, continues to be intubated, awake and following commands Objective - Vital Signs/Intake and Output Vital Signs (last 24 hours): Temp Pulse Resp BP Pulse Ox 99.3 F 104 H 22 101/52 L 98 12/04/18 08:00 12/04/18 10:00 12/04/18 10:00 12/04/18 10:00 12/04/18 10:00 Intake and Output: 12/04/18 12/04/18 06:59 18:59 Intake Total 842 350 Output Total 1100 410 Balance -258 -60 - Medications Medications: Current Medications Acetaminophen (Tylenol 325mg Tab) 650 mg PO Q6H PRN PRN Reason: Pain (1-10) Last Admin: 12/01/18 11:20 Dose: 650 mg Acetaminophen (Tylenol 325mg Tab) 650 mg PO Q6H PRN PRN Reason: Fever >100.4 F Last Admin: 11/28/18 06:07 Dose: 650 mg Acetaminophen (Tylenol 160mg/5ml Oral Soln) 160 mg PO ONCE PRN PRN Reason: Flu symptoms Albuterol/Ipratropium (Duoneb 3 Mg/0.5 Mg (3 Ml) Ud) 3 ml INH RQ6 [facility] Last Admin: 12/04/18 07:39 Dose: 3 ml Atorvastatin Calcium (Lipitor) 40 mg PO DAILY [facility] Last Admin: 12/03/18 08:21 Dose: 40 mg Dimethicone (Proshield Plus Skin Protectant) 1 applic TOP Q8 [facility] Last Admin: 12/04/18 08:42 Dose: 1 applic Azithromycin 500 mg/ Sodium (Chloride) 250 mls @ 250 mls/hr IVPB DAILY [facility]; Protocol Last Admin: 12/04/18 08:39 Dose: 250 mls/hr Furosemide 100 mg/ Sodium (Chloride) 100 mls @ 10 mls/hr IV .Q10H [facility]; Protocol Last Admin: 12/04/18 00:30 Dose: 10 mls/hr Heparin Sodium/Dextrose (Heparin 25,000 Units/250ml In D5w) 25,000 units in 250 mls @ 12 mls/hr IV .[id number] [facility]; Protocol Last Titration: 12/04/18 10:37 Dose: 0 mls/hr Metoprolol Tartrate (Lopressor) 12.5 mg PO Q12 [facility] Last Admin: 12/04/18 08:41 Dose: 12.5 mg Morphine Sulfate (Morphine) 4 mg IVP Q4 PRN PRN Reason: Agitation Last Admin: 12/04/18 09:01 Dose: 4 mg Nystatin (Nystop Topical Powder) 1 applic TOP TID [facility] Last Admin: 12/04/18 08:40 Dose: 1 applic Pantoprazole Sodium (Protonix Inj) 40 mg IVP Q12 [facility] Last Admin: 12/04/18 08:42 Dose: 40 mg - Labs Labs: 12/04/18 06:40 12/04/18 06:40 PT 11.3 Seconds (9.8-13.1) 12/03/18 19:13 INR 1.0 12/03/18 19:13 APTT 39.7 Seconds (25.6-37.1) H 12/04/18 10:13 - Constitutional Appears: Non-toxic, No Acute Distress - Head Exam Head Exam: ATRAUMATIC, NORMOCEPHALIC - Eye Exam Eye Exam: EOMI, Normal appearance, PERRL. absent: Scleral icterus - ENT Exam Additional comments: ET tube in place - Respiratory Exam Respiratory Exam: Rhonchi, Wheezes, NORMAL BREATHING PATTERN. absent: Clear to Ausculation Bilateral Additional comments: Mild crackles appreciated bilaterally - Cardiovascular Exam Cardiovascular Exam: RRR, +S1, +S2 Additional comments: No click appreciated on exam - GI/Abdominal Exam GI & Abdominal Exam: Soft. absent: Tenderness Additional comments: Obese - Extremities Exam Additional comments: BL LE PT/DP 2+ - Neurological Exam Neurological Exam: Alert, Awake Additional comments: Following commands Moving extremities Off of sedation - Skin Skin Exam: Dry, Intact, Warm Assessment and Plan (1) CAP (community acquired pneumonia) Status: Acute (2) CHF exacerbation Status: Acute (3) NSTEMI (non-ST elevated myocardial infarction) Status: Acute (4) Morbid obesity Status: Chronic (5) COPD (chronic obstructive pulmonary disease) Status: Suspected - Assessment and Plan (Free Text) Plan: Plan for WOLFGANG 12/04 AM BNP is markedly elevated at this time compared to time of admission; Further reccs pending WOLFGANG evaluation this morning. Continue heparin Drip - PTT Goal 40-50 Can consider resuming antiplatelet (ASA) if Hb continues to remain stable Continue Metropol 12.5 Q12. No longer oliguric however patient has minimal urine output. Further recs per Dr. Sutton pending. <Isaak Sutton - Last Filed: 12/07/18 17:33> Objective - Vital Signs/Intake and Output Vital Signs (last 24 hours): Temp Pulse Resp BP Pulse Ox 97.1 F L 91 H 15 105/52 L 100 12/07/18 16:00 12/07/18 17:00 12/07/18 17:00 12/07/18 17:00 12/07/18 17:00 Intake and Output: 12/07/18 12/07/18 06:59 18:59 Intake Total 1420 929 Output Total 800 Balance 620 929 - Medications Medications: Current Medications Acetaminophen (Tylenol 325mg Tab) 650 mg PO Q6H PRN PRN Reason: Pain (1-10) Last Admin: 12/06/18 21:17 Dose: 650 mg Acetaminophen (Tylenol 325mg Tab) 650 mg PO Q6H PRN PRN Reason: Fever >100.4 F Last Admin: 11/28/18 06:07 Dose: 650 mg Acetaminophen (Tylenol 160mg/5ml Oral Soln) 160 mg PO ONCE PRN PRN Reason: Flu symptoms Albuterol/Ipratropium (Duoneb 3 Mg/0.5 Mg (3 Ml) Ud) 3 ml INH RQ6 [facility] Last Admin: 12/07/18 13:06 Dose: 3 ml Atorvastatin Calcium (Lipitor) 40 mg PO DAILY [facility] Last Admin: 12/07/18 08:19 Dose: 40 mg Dimethicone (Proshield Plus Skin Protectant) 1 applic TOP Q8 [facility] Last Admin: 12/07/18 08:24 Dose: 1 applic Furosemide 100 mg/ Sodium (Chloride) 100 mls @ 10 mls/hr IV .Q10H [facility]; Protocol Last Admin: 12/07/18 08:18 Dose: 10 mls/hr Aztreonam 1 gm/ Sodium (Chloride) 100 mls @ 100 mls/hr IVPB Q12 [facility]; Protocol Last Admin: 12/07/18 08:17 Dose: 100 mls/hr Linezolid (Zyvox 600mg/300ml D5w) 600 mg in 300 mls @ 300 mls/hr IVPB Q12 [facility]; Protocol Last Admin: 12/07/18 08:40 Dose: 300 mls/hr Propofol (Diprivan) 1,000 mg in 100 mls @ 11.859 mls/hr IV .Q8H26M [facility]; Protocol Stop: 12/08/18 10:04 Last Titration: 12/07/18 17:10 Dose: 20 mcg/kg/min, 15.812 mls/hr Heparin Sodium/Dextrose (Heparin 25,000 Units/250ml In D5w) 25,000 units in 250 mls @ 18 mls/hr IV .[id number] [facility]; Protocol Stop: 12/08/18 18:59 Last Admin: 12/07/18 16:05 Dose: 18 mls/hr Metoprolol Tartrate (Lopressor) 12.5 mg PO Q12 [facility] Last Admin: 12/07/18 08:19 Dose: 12.5 mg Morphine Sulfate (Morphine) 4 mg IVP Q4 PRN PRN Reason: Agitation Last Admin: 12/07/18 05:50 Dose: 4 mg Nystatin (Nystop Topical Powder) 1 applic TOP TID [facility] Last Admin: 12/07/18 16:10 Dose: Not Given Pantoprazole Sodium (Protonix Inj) 40 mg IVP Q12 [facility] Last Admin: 12/07/18 12:32 Dose: 40 mg - Labs Labs: 12/07/18 05:33 12/07/18 05:33 PT 11.3 Seconds (9.8-13.1) 12/03/18 19:13 INR 1.0 12/03/18 19:13 APTT 43.9 Seconds (25.6-37.1) H 12/07/18 01:00 Assessment and Plan (1) NSTEMI (non-ST elevated myocardial infarction) Status: Acute (2) CAP (community acquired pneumonia) Status: Acute (3) CHF exacerbation Status: Acute (4) Respiratory distress Status: Acute (5) Respiratory failure with hypoxia and hypercapnia Status: Acute (6) History of aortic valve replacement Status: Chronic (7) Morbid obesity Status: Chronic (8) COPD (chronic obstructive pulmonary disease) Status: Suspected Attending/Attestation - Attestation I have personally seen and examined this patient.: Yes I have fully participated in the care of the patient.: Yes I have reviewed all pertinent clinical information, including history, physical exam and plan: Yes Notes (Text): 12/07/18 17:32 WOLFGANG done showed normal EF and normal LV and RV function Aortic valve well seated and normal functioning resp rx per pulmonary
[2018-12-04] MEDS ORDERED: Propofol 10 mg/ml 1,000 MG/100 ML VIAL IV SCH (11:00)
--- NOTE | 2018-12-04 11:02 | CP.CCUPN ---
CCU Subjective - Physician Review Subjective (Free Text): Off anxiolytics this AM and very agitated, upon examination-c/o nonspecific pain discomfort, and feels thirsty. Does not appear distressed due to MV mechanics or asynchrony. T max 99.9F overnight, SBP 110s HR 90s, SPo2 99% on 40% oxygen. Urine output 1600ml last 12H on Lasix drip. Patient subsequently sedated with Morphine IVP. Awaiting WOLFGANG this AM, Discussed with Nephro, decision made for acute HD today as well. No new active or acute bleeding evident. ROS: No other pertinent negs or positives on 10+ system review- unobtainable due to sedation. PMSFH: All other Nursing and physician documentation reviewed to date; no new pertinent info noted relevant to current medical problems. EXAM- HEENT: no icterus, no gaze preference NECK: No JVD visible given short neck and overall obesity, supple, carotids equal upstroke bilat/no bruit. Underlying ecchymoses and hematoma noted; no increase in size or extent from previous descriptions. CHEST: Unchanged upper chest ecchymoses noted extending form R shoulder across upper chest to left side; decreased BS at the bases, especially R base; no wheezes audible bilaterally. HEART: regular, distant, S1S2, no rubs or murmurs noted ABD: soft and obese, nontender, no guarding, no organomegaly, BS hypoactive. EXT: no leg edema, no calf tenderness or palpable cords, distal pulses intact and symmetrical. RUEE PICC (done yesterday) NEURO: sedated, + tone in all extremities. SKIN: no rashes, warm and dry LABS: WBC= 12.5 HGB= 7.4 PLTs= 287K Coags: PTT = 39.7 7.34/40/82 Na= 147 K= 4.0 CL= 114 HCO3= 24 BUN/Cr= 99/5.4 BS= 95 CXR: (my interp)- ETT tip OK above tomas, bilateral basilar interstitial changes, R worse than L. IMPRESSION / MAJOR PROBLEMS NOW: 1. Acute hypercarbic resp failure 2 COPD Exacerbation /Bilat pneumonia, NSTEMI with Acute Pulm Edema 2. Influenza Viral resp infection, r/o superimposed bilateral bacterial PNA 3. GI bleed (r/o stress gastritis versus other colitis disorder) and diffuse upper chest and neck ecchymoses (from previous R subclavian and R IJ vein venipuncture attempts during TLC placement) from warfarin coagulopathy. 4. SEDA, r/o ATN, versus pre-renal Azotemia 5. s /p AVR, on AC with heparin drip 6. Morbid obesity PLAN: 1. Lasix drip to continue, decision made for acute HD today. 2. R neck TLC removed due to + BCs with GPC in clusters on preliminary ID. 3. Will hold on PRBCs for now unless new bleeding evident, hypotension or hypoxemia. 4. Check repeat Vanco level. Vanco with Zosyn pending full ID and sensitivity of GPCs. 5. Further MV weans after WOLFGANG / HD today, as tolerated.
--- NOTE | 2018-12-04 11:15 | VASCULAR ---
PROCEDURE: Date of procedure: 12/03/2018 Procedure: 1. Placement of a right arm PICC with ultrasound and fluoroscopic guidance, CPT 53890 2. PICC tip confirmation with spot radiograph and is in the superior vena cava Medications: 1 percent lidocaine Total Fluoro time: 46.1 Seconds Radiation: 17.44 MGy EBL: 5 cc HISTORY: Infection requiring long-term IV antibiotics TECHNIQUE: Following informed consent and procedure time-out, the patient was placed supine on the interventional table and the right arm prepped and draped in the usual sterile fashion. Ultrasound showed a patent and compressible right cephalic vein. After the skin was anesthetized with lidocaine, the cephalic vein was accessed with micro micropuncture technique using ultrasound guidance. A guidewire was then advanced under fluoroscopic guidance into the superior vena cava. An image documenting ultrasound guidance for vascular access was permanently saved. The length of the double-lumen 5 Swedish PICC was trimmed to 45 centimeters and advanced through a peel-away sheath. The PICC was position with tip of PICC confirm a spot radiograph the superior vena cava. The PICC was secured to the patient's skin. The PICC was flushed. A biopatch and sterile dressing was applied. IMPRESSION: Placement of a double-lumen 5 Swedish PICC trimmed to 35 centimeters via right cephalic vein. The tip of the PICC is confirmed with spot radiograph and is in the superior vena cava.
[2018-12-04] MEDS ORDERED: Lidocaine 2% Jelly (5 ml) TOP ONE (12:47)
[2018-12-04] MEDS ORDERED: Propofol 10 mg/ml Inj (20 ML) IV ONE (13:28)
--- NOTE | 2018-12-04 13:57 | CP.PCM.PN ---
Subjective - Date & Time of Evaluation Date of Evaluation: 12/04/18 Time of Evaluation: 13:57 - Subjective Subjective: No new changes renal function deteriorating more will dialyze. Continue supportive rx Patient condition discussed with family and consultants. Objective - Vital Signs/Intake and Output Vital Signs (last 24 hours): Temp Pulse Resp BP Pulse Ox 99.3 F 108 H 15 121/63 95 12/04/18 12:09 12/04/18 13:00 12/04/18 13:00 12/04/18 13:00 12/04/18 13:00 Intake and Output: 12/04/18 12/04/18 11:59 23:59 Intake Total 876 Output Total 1510 500 Balance -634 -500 - Medications Medications: Current Medications Acetaminophen (Tylenol 325mg Tab) 650 mg PO Q6H PRN PRN Reason: Pain (1-10) Last Admin: 12/01/18 11:20 Dose: 650 mg Acetaminophen (Tylenol 325mg Tab) 650 mg PO Q6H PRN PRN Reason: Fever >100.4 F Last Admin: 11/28/18 06:07 Dose: 650 mg Acetaminophen (Tylenol 160mg/5ml Oral Soln) 160 mg PO ONCE PRN PRN Reason: Flu symptoms Albuterol/Ipratropium (Duoneb 3 Mg/0.5 Mg (3 Ml) Ud) 3 ml INH RQ6 [facility] Last Admin: 12/04/18 13:29 Dose: Not Given Atorvastatin Calcium (Lipitor) 40 mg PO DAILY [facility] Last Admin: 12/03/18 08:21 Dose: 40 mg Dimethicone (Proshield Plus Skin Protectant) 1 applic TOP Q8 [facility] Last Admin: 12/04/18 08:42 Dose: 1 applic Azithromycin 500 mg/ Sodium (Chloride) 250 mls @ 250 mls/hr IVPB DAILY [facility]; Protocol Last Admin: 12/04/18 08:39 Dose: 250 mls/hr Furosemide 100 mg/ Sodium (Chloride) 100 mls @ 10 mls/hr IV .Q10H [facility]; Protocol Last Admin: 12/04/18 11:59 Dose: 10 mls/hr Heparin Sodium/Dextrose (Heparin 25,000 Units/250ml In D5w) 25,000 units in 250 mls @ 12 mls/hr IV .[id number] [facility]; Protocol Last Titration: 12/04/18 10:37 Dose: 0 mls/hr Metoprolol Tartrate (Lopressor) 12.5 mg PO Q12 [facility] Last Admin: 12/04/18 08:41 Dose: 12.5 mg Morphine Sulfate (Morphine) 4 mg IVP Q4 PRN PRN Reason: Agitation Last Admin: 12/04/18 09:01 Dose: 4 mg Nystatin (Nystop Topical Powder) 1 applic TOP TID [facility] Last Admin: 12/04/18 13:31 Dose: 1 applic Pantoprazole Sodium (Protonix Inj) 40 mg IVP Q12 [facility] Last Admin: 12/04/18 08:42 Dose: 40 mg - Labs Labs: 12/04/18 06:40 12/04/18 06:40 PT 11.3 Seconds (9.8-13.1) 12/03/18 19:13 INR 1.0 12/03/18 19:13 APTT 39.7 Seconds (25.6-37.1) H 12/04/18 10:13 - Constitutional Appears: Chronically Ill - Head Exam Head Exam: ATRAUMATIC, NORMAL INSPECTION, NORMOCEPHALIC - Eye Exam Eye Exam: Normal appearance - Respiratory Exam Respiratory Exam: Decreased Breath Sounds - Cardiovascular Exam Cardiovascular Exam: REGULAR RHYTHM, +S1, +S2 - GI/Abdominal Exam GI & Abdominal Exam: Soft - Neurological Exam Additional comments: sedated Assessment and Plan (1) CAP (community acquired pneumonia) Status: Acute (2) CHF exacerbation Status: Acute (3) DVT prophylaxis Status: Acute (4) History of aortic valve replacement Status: Chronic (5) Influenza A Status: Acute (6) NSTEMI (non-ST elevated myocardial infarction) Status: Acute (7) Pneumonia and influenza Status: Acute (8) Respiratory distress Status: Acute (9) Respiratory failure with hypoxia and hypercapnia Status: Acute (10) Morbid obesity Status: Chronic (11) COPD (chronic obstructive pulmonary disease) Status: Suspected (12) Myocardial ischemia Status: Acute (13) Renal failure, acute Status: Acute (14) Hematoma Status: Acute
--- NOTE | 2018-12-04 14:56 | PCM.SURG1 ---
Surgeon's Initial Post Op Note - Surgeon's Notes Surgeon: Estelita Warp Tying Machine Knotter: none Type of Anesthesia: Local Pre-Operative Diagnosis: ARF Operative Findings: Patent left IJV Post-Operative Diagnosis: ARF Operation Performed: Left IJV shiley catheter placement Specimen/Specimens Removed: None Estimated Blood Loss: EBL {In ML}: 1 Date of Surgery/Procedure: 12/04/18 Time of Surgery/Procedure: 14:45
--- NOTE | 2018-12-04 19:58 | CP.PCM.PN ---
Subjective - Date & Time of Evaluation Date of Evaluation: 12/04/18 Time of Evaluation: 11:00 - Subjective Subjective: Patient alert; follows commands; remains intubated, off sedation; s/p WOLFGANG today, reportedly not showing any gross abnormalities; Objective - Vital Signs/Intake and Output Vital Signs (last 24 hours): Temp Pulse Resp BP Pulse Ox 98.9 F 115 H 23 165/79 H 98 12/04/18 16:00 12/04/18 18:00 12/04/18 18:00 12/04/18 18:00 12/04/18 18:00 Intake and Output: 12/04/18 12/05/18 18:59 06:59 Intake Total 840 Output Total 1610 Balance -770 - Medications Medications: Current Medications Acetaminophen (Tylenol 325mg Tab) 650 mg PO Q6H PRN PRN Reason: Pain (1-10) Last Admin: 12/01/18 11:20 Dose: 650 mg Acetaminophen (Tylenol 325mg Tab) 650 mg PO Q6H PRN PRN Reason: Fever >100.4 F Last Admin: 11/28/18 06:07 Dose: 650 mg Acetaminophen (Tylenol 160mg/5ml Oral Soln) 160 mg PO ONCE PRN PRN Reason: Flu symptoms Albuterol/Ipratropium (Duoneb 3 Mg/0.5 Mg (3 Ml) Ud) 3 ml INH RQ6 PINKY Last Admin: 12/04/18 19:15 Dose: 3 ml Atorvastatin Calcium (Lipitor) 40 mg PO DAILY PINKY Last Admin: 12/04/18 16:07 Dose: Not Given Dimethicone (Proshield Plus Skin Protectant) 1 applic TOP Q8 PINKY Last Admin: 12/04/18 16:06 Dose: 1 applic Azithromycin 500 mg/ Sodium (Chloride) 250 mls @ 250 mls/hr IVPB DAILY PINKY; Protocol Last Admin: 12/04/18 08:39 Dose: 250 mls/hr Furosemide 100 mg/ Sodium (Chloride) 100 mls @ 10 mls/hr IV .Q10H PINKY; Protocol Last Admin: 12/04/18 11:59 Dose: 10 mls/hr Heparin Sodium/Dextrose (Heparin 25,000 Units/250ml In D5w) 25,000 units in 250 mls @ 12 mls/hr IV .[id number] PINKY; Protocol Last Titration: 12/04/18 15:00 Dose: 12 mls/hr Metoprolol Tartrate (Lopressor) 12.5 mg PO Q12 [facility] Last Admin: 12/04/18 08:41 Dose: 12.5 mg Morphine Sulfate (Morphine) 4 mg IVP Q4 PRN PRN Reason: Agitation Last Admin: 12/04/18 16:04 Dose: 4 mg Nystatin (Nystop Topical Powder) 1 applic TOP TID [facility] Last Admin: 12/04/18 16:07 Dose: 1 applic Pantoprazole Sodium (Protonix Inj) 40 mg IVP Q12 [facility] Last Admin: 12/04/18 08:42 Dose: 40 mg - Labs Labs: 12/04/18 06:40 12/04/18 06:40 PT 11.3 Seconds (9.8-13.1) 12/03/18 19:13 INR 1.0 12/03/18 19:13 APTT 39.7 Seconds (25.6-37.1) H 12/04/18 10:13 - Constitutional Appears: Non-toxic, No Acute Distress - Eye Exam Eye Exam: Normal appearance - Neck Exam Additional comments: large areas of echymoses noted over lower neck and upper chest b/l; - Respiratory Exam Additional comments: tachypneic on vent; minimal wheezes; good air movement; - Cardiovascular Exam Cardiovascular Exam: Tachycardia. absent: Gallop, Rubs - GI/Abdominal Exam GI & Abdominal Exam: Soft - Extremities Exam Additional comments: edema of dependent areas/abd wall; - Neurological Exam Neurological Exam: Alert, Awake - Psychiatric Exam Psychiatric exam: absent: Agitated - Skin Skin Exam: Warm. absent: Cyanosis Assessment and Plan (1) Renal failure, acute Assessment & Plan: Consistent with ATN; non-oliguric renal failure; urine output responding to lasix drip, however, still with positive fluid balance and renal function shoshana nues to worsen; stable electrolyte and respiratory status (on 40% FIO2); will initiate HD to help maintain negative fluid balance; -first HD today via L IJ temp cath, over 3 hrs with 1.5L net UF goal; tolerating well with robust BP; no need for pressor; -continue lasix drip to assist in achieving negative fluid balance; -avoid nephrotoxic agents; -check vanco level tomorrow (restarted for gram pos blood culture); Status: Acute (2) Acute hypoxemic respiratory failure Status: Acute (3) Anemia Assessment & Plan: Again drop in hgb; transfuse for hgb < 7; Status: Acute (4) Hypotension Status: Acute (5) Sepsis Status: Acute - Assessment and Plan (Free Text) Assessment: Critical care time spent in assessment and coordinating 1st HD > 35 minutes;
[2018-12-04 21:05] LABS: HEPATITIS B SURFACE AG Negative (NEGATIVE)
[2018-12-04 21:10] LABS: HEPATITIS B CORE AB NEGATIVE (NEGATIVE)
[2018-12-04 21:22] LABS: HEPATITIS C ANTIBODY NEGATIVE (NEGATIVE)
[2018-12-05] MEDS ORDERED: Midazolam 2 MG/2 ML VIAL IV STA (00:08)
[2018-12-05] MEDS: Proshield Plus GEL TOP SCH ×3 (01:05→18:49)
[2018-12-05] MEDS: Albuterol-Ipratrop 3 mg / 0.5 (3 ml) UD INH SCH ×4 (01:15→19:27)
[2018-12-05] MEDS ORDERED: Heparin 25,000units in D5W 25,000 UNITS/250 ML BAG IV SCH (02:30)
[2018-12-05 03:09] LABS: SQUAMOUS EPITHIAL 1 /hpf (0-5); URINE BACTERIA OCC (<OCC); URINE BILIRUBIN NEGATIVE (NEGATIVE); URINE BLOOD MODERATE (NEGATIVE); URINE CLARITY CLOUDY (Clear); URINE COLOR YELLOW (YELLOW); URINE GLUCOSE (UA) NEG (NEGATIVE); URINE LEUKOCYTE ESTERASE LARGE Leu/uL (Negative); URINE PROTEIN NEGATIVE (NEGATIVE); URINE UROBILINOGEN 0.2-1.0 mg/dL (0.2-1.0); WBC CLUMPS MOD /hpf
[2018-12-05 05:11] LABS: BASO # 0.1 K/uL (0.0-0.2); BASO % 0.4 % (0.0-2.0); EOS # 0.9 K/uL (0.0-0.7); EOS % 6.8 % (0.0-4.0); HEMOGLOBIN 7.8 g/dL (12.0-16.0); LYMPH # 1.4 K/uL (1.0-4.3); LYMPH % 10.1 % (20.0-40.0); MEAN CORPUSCULAR HEMOGLOBIN 30.8 pg (27.0-31.0); MEAN CORPUSCULAR HGB CONC 33.2 g/dL (33.0-37.0); MEAN PLATELET VOLUME 7.9 fl (7.2-11.7); MONO % 7.4 % (0.0-10.0); NEUT # 10.4 K/uL (1.8-7.0); NEUT % 75.3 % (50.0-75.0); NRBC % 0.1 % (0.0-0.0); RBC 2.52 Mil/uL (3.80-5.20); WHITE BLOOD COUNT 13.8 K/uL (4.8-10.8)
[2018-12-05 05:36] LABS: ABG ALLEN TEST YES; ARTERIAL BLOOD GAS HCO3 22.3 mmol/L (21-28); ARTERIAL BLOOD GAS HEMOGLOBIN 7.6 g/dL (11.7-17.4); ARTERIAL BLOOD GAS O2 CAPACITY 10.3 mL/dL (16-24); ARTERIAL BLOOD GAS O2 CONTENT 10.3 ML/dL (15-23); ARTERIAL BLOOD GAS O2 SAT 100.4 % (95-98); ARTERIAL BLOOD GAS PCO2 41 mm/Hg (35-45); ARTERIAL BLOOD GAS PH 7.34 (7.35-7.45); ARTERIAL BLOOD GAS PO2 75 mm/Hg (80-100); ARTERIAL BLOOD GAS TCO2 23.4 mmol/L (22-28)
[2018-12-05 05:38] LABS: ALB/GLOB RATIO 0.8 (1.0-2.1); CALCIUM 8.8 mg/dL (8.4-10.2)
[2018-12-05] MEDS: Morphine 4 MG/ML VIAL IVP PRN ×2 (06:30→16:04)
[2018-12-05] MEDS: Heparin 25,000units in D5W 25,000 UNITS/250 ML BAG IV SCH (07:00)
--- NOTE | 2018-12-05 08:29 | CP.CCUPN ---
CCU Subjective - Physician Review Events Since Last Encounter (Free Text): Patient on ventilator, on PRVC TV 450, RR 10, FIO2 50%, no pressors, opens eyes to verbal stimuli, events reviewed CCU Objective - Vital Signs / Intake & Output Vital Signs (Last 4 hours): Vital Signs Pulse Resp BP Pulse Ox 12/05/18 06:00 97 H 18 94/37 L 97 12/05/18 05:00 107 H 20 96 Intake and Output (Last 8hrs): Intake & Output 12/04/18 12/05/18 12/05/18 22:59 06:59 14:59 Intake Total 488 712 Output Total 300 800 Balance 188 -88 Weight 261 lb Intake: IV 248 12 Tube Feeding 40 100 Free Water Flush 200 600 Output: Urine 300 800 Urethral (Olivarez) 300 800 Other: # Bowel Movements 1 - Physical Exam Head: Positive for: Atraumatic, Normocephalic Pupils: Positive for: PERRL Ears: Positive for: Normal Mouth: Positive for: Moist Mucous Membranes Nose (External): Positive for: Atraumatic Nose (Internal): Positive for: Normal Inspection Neck: Positive for: Normal Range of Motion Respiratory/Chest: Positive for: Rhonchi Cardiovascular: Positive for: Regular Rate and Rhythm Abdomen: Positive for: Normal Bowel Sounds, Other (morbid obesity) Neurological: Positive for: Other (on ventilator) - Medications Active Medications: Active Medications Generic Name Dose Route Start Last Admin Trade Name Freq PRN Reason Stop Dose Admin Acetaminophen 650 mg 11/25/18 22:27 12/01/18 11:20 Tylenol 325mg Tab PO 650 mg Q6H PRN Administration Pain (1-10) Acetaminophen 650 mg 11/25/18 22:27 11/28/18 06:07 Tylenol 325mg Tab PO 650 mg Q6H PRN Administration Fever >100.4 F Acetaminophen 160 mg 12/01/18 10:36 Tylenol 160mg/5ml Oral Soln PO ONCE PRN Flu symptoms Albuterol/Ipratropium 3 ml 12/01/18 14:00 12/05/18 07:35 Duoneb 3 Mg/0.5 Mg (3 Ml) Ud INH 3 ml RQ6 PINKY Administration Atorvastatin Calcium 40 mg 11/26/18 09:00 12/04/18 20:41 Lipitor PO 40 mg DAILY PINKY Administration Dimethicone 1 applic 11/26/18 17:00 12/05/18 01:05 Proshield Plus Skin Protectant TOP 1 applic Q8 PINKY Administration Azithromycin 500 mg/ Sodium 250 mls @ 250 mls/hr 12/01/18 10:00 12/04/18 08:39 Chloride IVPB 250 mls/hr DAILY PINKY Administration Protocol Furosemide 100 mg/ Sodium 100 mls @ 10 mls/hr 12/03/18 11:45 12/04/18 23:39 Chloride IV 10 mls/hr .Q10H PINKY Administration Protocol 10 MG/HR Heparin Sodium/Dextrose 25,000 units in 250 mls @ 14 mls/hr 12/05/18 06:45 Heparin 25,000 Units/250ml In D5w IV .[id number] PINKY Protocol Propofol 1,000 mg in 100 mls @ 3.552 mls/hr 12/05/18 08:30 Diprivan IV 12/06/18 08:23 .Q24H PINKY Protocol 5 MCG/KG/MIN Metoprolol Tartrate 12.5 mg 12/01/18 21:00 12/04/18 22:00 Lopressor PO 12.5 mg Q12 PINKY Administration Morphine Sulfate 4 mg 12/04/18 08:48 12/05/18 06:30 Morphine IVP 4 mg Q4 PRN Administration Agitation Nystatin 1 applic 11/26/18 17:00 12/04/18 16:07 Nystop Topical Powder TOP 1 applic TID PINKY Administration Pantoprazole Sodium 40 mg 11/29/18 21:00 12/04/18 20:40 Protonix Inj IVP 40 mg Q12 PINKY Administration - Patient Studies Lab Studies: Microbiology Studies 12/02/18 15:59 Blood Culture - Preliminary Blood-Thru Central Line NO GROWTH AFTER 48 HOURS 12/02/18 15:49 S.aureus & Coag-Neg Staph PNA FISH - Final Blood-Thru Central Line TEST NOT PERFORMED Blood Culture - Preliminary Gram Positive Cocci Gram Stain - Final 12/02/18 06:16 Gram Stain - Final Trachasp Sputum Culture - Preliminary NORMAL ORAL KARISSA Lab Studies 12/05/18 12/05/18 12/05/18 Range/Units 05:14 04:50 04:50 WBC 13.8 H (4.8-10.8) K/uL RBC 2.52 L (3.80-5.20) Mil/uL Hgb 7.8 L (12.0-16.0) g/dL Hct 23.4 L (34.0-47.0) % MCV 93.0 (81.0-99.0) fl MCH 30.8 (27.0-31.0) pg MCHC 33.2 (33.0-37.0) g/dL RDW 15.0 H (11.5-14.5) % Plt Count 333 (130-400) K/uL MPV 7.9 (7.2-11.7) fl Neut % (Auto) 75.3 H (50.0-75.0) % Lymph % (Auto) 10.1 L (20.0-40.0) % [place] % (Auto) 7.4 (0.0-10.0) % Eos % (Auto) 6.8 H (0.0-4.0) % Baso % (Auto) 0.4 (0.0-2.0) % Neut # (Auto) 10.4 H (1.8-7.0) K/uL Lymph # (Auto) 1.4 (1.0-4.3) K/uL [place] # (Auto) 1.0 H (0.0-0.8) K/uL Eos # (Auto) 0.9 H (0.0-0.7) K/uL Baso # (Auto) 0.1 (0.0-0.2) K/uL APTT (25.6-37.1) Seconds pCO2 41 (35-45) mm/Hg pO2 75 L (80-100) mm/Hg HCO3 22.3 (21-28) mmol/L ABG pH 7.34 L (7.35-7.45) ABG Total CO2 23.4 (22-28) mmol/L ABG O2 Saturation 100.4 H (95-98) % ABG O2 Content 10.3 L (15-23) ML/dL ABG Base Excess -3.4 L (-2.0-3.0) mmol/L ABG Hemoglobin 7.6 L (11.7-17.4) g/dL ABG Carboxyhemoglobin 4.1 H (0.5-1.5) % POC ABG HHb (Measured) -0.4 L (0.0-5.0) % ABG Methemoglobin 0.8 (0.0-3.0) % ABG O2 Capacity 10.3 L (16-24) mL/dL Juanito Test Yes A-a O2 Difference 159.0 mm/Hg Hgb O2 Saturation 95.5 (95.0-98.0) % Vent Mode A/c Mechanical Rate 10 FiO2 40.0 % Tidal Volume 450 PEEP 5 Sodium 144 (132-148) mmol/l Potassium 4.2 (3.6-5.0) MMOL/L Chloride 112 H (98-107) mmol/L Carbon Dioxide 23 (22-30) mmol/L Anion Gap 13 (10-20) BUN 64 H (7-17) mg/dl Creatinine 3.9 H (0.7-1.2) mg/dl Est GFR ( Amer) 14 Est GFR (Non-Af Amer) 12 Random Glucose 92 (65-105) mg/dL Calcium 8.8 (8.4-10.2) mg/dL Total Bilirubin 1.3 (0.2-1.3) mg/dl AST 87 H (14-36) U/L ALT 103 H D (9-52) U/L Alkaline Phosphatase 77 (38-126) U/L Total Protein 6.9 (6.3-8.2) G/DL Albumin 3.0 L (3.5-5.0) g/dL Globulin 3.9 (2.2-3.9) gm/dL Albumin/Globulin Ratio 0.8 L (1.0-2.1) Urine Color (YELLOW) Urine Clarity (Clear) Urine pH (5.0-8.0) Ur Specific [place] (1.003-1.030) Urine Protein (NEGATIVE) mg/dL Urine Glucose (UA) (NEGATIVE) mg/dL Urine Ketones (NEGATIVE) mg/dL Urine Blood (NEGATIVE) Urine Nitrate (NEGATIVE) Urine Bilirubin (NEGATIVE) Urine Urobilinogen (0.2-1.0) mg/dL Ur Leukocyte Esterase (Negative) Susan/uL Urine RBC (Auto) (0-3) /hpf Urine WBC Clumps (Auto) (NONE) /hpf Urine Microscopic WBC (0-5) /hpf Ur Squamous Epith Cells (0-5) /hpf Urine Bacteria (<OCC) Urine Yeast (Budding) (NEGATIVE) /hpf Vancomycin Trough (5.0-10.0) ug/mL Hep Bs Antigen (NEGATIVE) Hep B Core IgM Ab (NEGATIVE) Hepatitis C Antibody (NEGATIVE) 12/05/18 12/05/18 12/04/18 Range/Units 04:50 04:50 20:57 WBC (4.8-10.8) K/uL RBC (3.80-5.20) Mil/uL Hgb (12.0-16.0) g/dL Hct (34.0-47.0) % MCV (81.0-99.0) fl MCH (27.0-31.0) pg MCHC (33.0-37.0) g/dL RDW (11.5-14.5) % Plt Count (130-400) K/uL MPV (7.2-11.7) fl Neut % (Auto) (50.0-75.0) % Lymph % (Auto) (20.0-40.0) % [place] % (Auto) (0.0-10.0) % Eos % (Auto) (0.0-4.0) % Baso % (Auto) (0.0-2.0) % Neut # (Auto) (1.8-7.0) K/uL Lymph # (Auto) (1.0-4.3) K/uL [place] # (Auto) (0.0-0.8) K/uL Eos # (Auto) (0.0-0.7) K/uL Baso # (Auto) (0.0-0.2) K/uL APTT 36.5 34.8 (25.6-37.1) Seconds pCO2 (35-45) mm/Hg pO2 (80-100) mm/Hg HCO3 (21-28) mmol/L ABG pH (7.35-7.45) ABG Total CO2 (22-28) mmol/L ABG O2 Saturation (95-98) % ABG O2 Content (15-23) ML/dL ABG Base Excess (-2.0-3.0) mmol/L ABG Hemoglobin (11.7-17.4) g/dL ABG Carboxyhemoglobin (0.5-1.5) % POC ABG HHb (Measured) (0.0-5.0) % ABG Methemoglobin (0.0-3.0) % ABG O2 Capacity (16-24) mL/dL Juanito Test A-a O2 Difference mm/Hg Hgb O2 Saturation (95.0-98.0) % Vent Mode Mechanical Rate FiO2 % Tidal Volume PEEP Sodium (132-148) mmol/l Potassium (3.6-5.0) MMOL/L Chloride (98-107) mmol/L Carbon Dioxide (22-30) mmol/L Anion Gap (10-20) BUN (7-17) mg/dl Creatinine (0.7-1.2) mg/dl Est GFR ( Amer) Est GFR (Non-Af Amer) Random Glucose (65-105) mg/dL Calcium (8.4-10.2) mg/dL Total Bilirubin (0.2-1.3) mg/dl AST (14-36) U/L ALT (9-52) U/L Alkaline Phosphatase (38-126) U/L Total Protein (6.3-8.2) G/DL Albumin (3.5-5.0) g/dL Globulin (2.2-3.9) gm/dL Albumin/Globulin Ratio (1.0-2.1) Urine Color (YELLOW) Urine Clarity (Clear) Urine pH (5.0-8.0) Ur Specific [place] (1.003-1.030) Urine Protein (NEGATIVE) mg/dL Urine Glucose (UA) (NEGATIVE) mg/dL Urine Ketones (NEGATIVE) mg/dL Urine Blood (NEGATIVE) Urine Nitrate (NEGATIVE) Urine Bilirubin (NEGATIVE) Urine Urobilinogen (0.2-1.0) mg/dL Ur Leukocyte Esterase (Negative) Susan/uL Urine RBC (Auto) (0-3) /hpf Urine WBC Clumps (Auto) (NONE) /hpf Urine Microscopic WBC (0-5) /hpf Ur Squamous Epith Cells (0-5) /hpf Urine Bacteria (<OCC) Urine Yeast (Budding) (NEGATIVE) /hpf Vancomycin Trough 16.5 H (5.0-10.0) ug/mL Hep Bs Antigen (NEGATIVE) Hep B Core IgM Ab (NEGATIVE) Hepatitis C Antibody (NEGATIVE) 12/04/18 12/04/18 12/04/18 Range/Units 15:39 10:13 02:40 WBC (4.8-10.8) K/uL RBC (3.80-5.20) Mil/uL Hgb (12.0-16.0) g/dL Hct (34.0-47.0) % MCV (81.0-99.0) fl MCH (27.0-31.0) pg MCHC (33.0-37.0) g/dL RDW (11.5-14.5) % Plt Count (130-400) K/uL MPV (7.2-11.7) fl Neut % (Auto) (50.0-75.0) % Lymph % (Auto) (20.0-40.0) % [place] % (Auto) (0.0-10.0) % Eos % (Auto) (0.0-4.0) % Baso % (Auto) (0.0-2.0) % Neut # (Auto) (1.8-7.0) K/uL Lymph # (Auto) (1.0-4.3) K/uL [place] # (Auto) (0.0-0.8) K/uL Eos # (Auto) (0.0-0.7) K/uL Baso # (Auto) (0.0-0.2) K/uL APTT 39.7 H (25.6-37.1) Seconds pCO2 (35-45) mm/Hg pO2 (80-100) mm/Hg HCO3 (21-28) mmol/L ABG pH (7.35-7.45) ABG Total CO2 (22-28) mmol/L ABG O2 Saturation (95-98) % ABG O2 Content (15-23) ML/dL ABG Base Excess (-2.0-3.0) mmol/L ABG Hemoglobin (11.7-17.4) g/dL ABG Carboxyhemoglobin (0.5-1.5) % POC ABG HHb (Measured) (0.0-5.0) % ABG Methemoglobin (0.0-3.0) % ABG O2 Capacity (16-24) mL/dL Juanito Test A-a O2 Difference mm/Hg Hgb O2 Saturation (95.0-98.0) % Vent Mode Mechanical Rate FiO2 % Tidal Volume PEEP Sodium (132-148) mmol/l Potassium (3.6-5.0) MMOL/L Chloride (98-107) mmol/L Carbon Dioxide (22-30) mmol/L Anion Gap (10-20) BUN (7-17) mg/dl Creatinine (0.7-1.2) mg/dl Est GFR ( Amer) Est GFR (Non-Af Amer) Random Glucose (65-105) mg/dL Calcium (8.4-10.2) mg/dL Total Bilirubin (0.2-1.3) mg/dl AST (14-36) U/L ALT (9-52) U/L Alkaline Phosphatase (38-126) U/L Total Protein (6.3-8.2) G/DL Albumin (3.5-5.0) g/dL Globulin (2.2-3.9) gm/dL Albumin/Globulin Ratio (1.0-2.1) Urine Color Yellow (YELLOW) Urine Clarity Cloudy (Clear) Urine pH 5.0 (5.0-8.0) Ur Specific [place] 1.008 (1.003-1.030) Urine Protein Negative (NEGATIVE) mg/dL Urine Glucose (UA) Neg (NEGATIVE) mg/dL Urine Ketones Negative (NEGATIVE) mg/dL Urine Blood Moderate (NEGATIVE) Urine Nitrate Negative (NEGATIVE) Urine Bilirubin Negative (NEGATIVE) Urine Urobilinogen 0.2-1.0 (0.2-1.0) mg/dL Ur Leukocyte Esterase Large (Negative) Susan/uL Urine RBC (Auto) 25 H (0-3) /hpf Urine WBC Clumps (Auto) Mod H (NONE) /hpf Urine Microscopic WBC 222 H (0-5) /hpf Ur Squamous Epith Cells 1 (0-5) /hpf Urine Bacteria Occ H (<OCC) Urine Yeast (Budding) Few H (NEGATIVE) /hpf Vancomycin Trough (5.0-10.0) ug/mL Hep Bs Antigen Negative (NEGATIVE) Hep B Core IgM Ab Negative (NEGATIVE) Hepatitis C Antibody Negative (NEGATIVE) Laboratory Results - last 24 hr 12/04/18 12/04/18 12/04/18 02:40 10:13 15:39 WBC RBC Hgb Hct MCV MCH MCHC RDW Plt Count MPV Neut % (Auto) Lymph % (Auto) [place] % (Auto) Eos % (Auto) Baso % (Auto) Neut # (Auto) Lymph # (Auto) [place] # (Auto) Eos # (Auto) Baso # (Auto) APTT 39.7 H pCO2 pO2 HCO3 ABG pH ABG Total CO2 ABG O2 Saturation ABG O2 Content ABG Base Excess ABG Hemoglobin ABG Carboxyhemoglobin POC ABG HHb (Measured) ABG Methemoglobin ABG O2 Capacity Juanito Test A-a O2 Difference Hgb O2 Saturation Vent Mode Mechanical Rate FiO2 Tidal Volume PEEP Sodium Potassium Chloride Carbon Dioxide Anion Gap BUN Creatinine Est GFR ( Amer) Est GFR (Non-Af Amer) Random Glucose Calcium Total Bilirubin AST ALT Alkaline Phosphatase Total Protein Albumin Globulin Albumin/Globulin Ratio Urine Color Yellow Urine Clarity Cloudy Urine pH 5.0 Ur Specific [place] 1.008 Urine Protein Negative Urine Glucose (UA) Neg Urine Ketones Negative Urine Blood Moderate Urine Nitrate Negative Urine Bilirubin Negative Urine Urobilinogen 0.2-1.0 Ur Leukocyte Esterase Large Urine RBC (Auto) 25 H Urine WBC Clumps (Auto) Mod H Urine Microscopic WBC 222 H Ur Squamous Epith Cells 1 Urine Bacteria Occ H Urine Yeast (Budding) Few H Vancomycin Trough Hep Bs Antigen Negative Hep B Core IgM Ab Negative Hepatitis C Antibody Negative 12/04/18 12/05/18 12/05/18 20:57 04:50 04:50 WBC RBC Hgb Hct MCV MCH MCHC RDW Plt Count MPV Neut % (Auto) Lymph % (Auto) [place] % (Auto) Eos % (Auto) Baso % (Auto) Neut # (Auto) Lymph # (Auto) [place] # (Auto) Eos # (Auto) Baso # (Auto) APTT 34.8 36.5 pCO2 pO2 HCO3 ABG pH ABG Total CO2 ABG O2 Saturation ABG O2 Content ABG Base Excess ABG Hemoglobin ABG Carboxyhemoglobin POC ABG HHb (Measured) ABG Methemoglobin ABG O2 Capacity Juanito Test A-a O2 Difference Hgb O2 Saturation Vent Mode Mechanical Rate FiO2 Tidal Volume PEEP Sodium Potassium Chloride Carbon Dioxide Anion Gap BUN Creatinine Est GFR ( Amer) Est GFR (Non-Af Amer) Random Glucose Calcium Total Bilirubin AST ALT Alkaline Phosphatase Total Protein Albumin Globulin Albumin/Globulin Ratio Urine Color Urine Clarity Urine pH Ur Specific [place] Urine Protein Urine Glucose (UA) Urine Ketones Urine Blood Urine Nitrate Urine Bilirubin Urine Urobilinogen Ur Leukocyte Esterase Urine RBC (Auto) Urine WBC Clumps (Auto) Urine Microscopic WBC Ur Squamous Epith Cells Urine Bacteria Urine Yeast (Budding) Vancomycin Trough 16.5 H Hep Bs Antigen Hep B Core IgM Ab Hepatitis C Antibody 12/05/18 12/05/18 12/05/18 04:50 04:50 05:14 WBC 13.8 H RBC 2.52 L Hgb 7.8 L Hct 23.4 L MCV 93.0 MCH 30.8 MCHC 33.2 RDW 15.0 H Plt Count 333 MPV 7.9 Neut % (Auto) 75.3 H Lymph % (Auto) 10.1 L [place] % (Auto) 7.4 Eos % (Auto) 6.8 H Baso % (Auto) 0.4 Neut # (Auto) 10.4 H Lymph # (Auto) 1.4 [place] # (Auto) 1.0 H Eos # (Auto) 0.9 H Baso # (Auto) 0.1 APTT pCO2 41 pO2 75 L HCO3 22.3 ABG pH 7.34 L ABG Total CO2 23.4 ABG O2 Saturation 100.4 H ABG O2 Content 10.3 L ABG Base Excess -3.4 L ABG Hemoglobin 7.6 L ABG Carboxyhemoglobin 4.1 H POC ABG HHb (Measured) -0.4 L ABG Methemoglobin 0.8 ABG O2 Capacity 10.3 L Juanito Test Yes A-a O2 Difference 159.0 Hgb O2 Saturation 95.5 Vent Mode A/c Mechanical Rate 10 FiO2 40.0 Tidal Volume 450 PEEP 5 Sodium 144 Potassium 4.2 Chloride 112 H Carbon Dioxide 23 Anion Gap 13 BUN 64 H Creatinine 3.9 H Est GFR ( Amer) 14 Est GFR (Non-Af Amer) 12 Random Glucose 92 Calcium 8.8 Total Bilirubin 1.3 AST 87 H ALT 103 H D Alkaline Phosphatase 77 Total Protein 6.9 Albumin 3.0 L Globulin 3.9 Albumin/Globulin Ratio 0.8 L Urine Color Urine Clarity Urine pH Ur Specific [place] Urine Protein Urine Glucose (UA) Urine Ketones Urine Blood Urine Nitrate Urine Bilirubin Urine Urobilinogen Ur Leukocyte Esterase Urine RBC (Auto) Urine WBC Clumps (Auto) Urine Microscopic WBC Ur Squamous Epith Cells Urine Bacteria Urine Yeast (Budding) Vancomycin Trough Hep Bs Antigen Hep B Core IgM Ab Hepatitis C Antibody Radiology Impressions: Radiology Impressions PICC Line Insertion 11/26/18 07:20 IMPRESSION: Chest X-Ray 12/04/18 04:00 IMPRESSION: Right basilar opacity. Possible pneumonia. Follow-up advised. Possible patchy opacities elsewhere. Cannot rule out multifocal pneumonia. ETT, NG tube, right IJ central venous catheter and right PICC catheter are noted. Assessment/Plan - Assessment and Plan (Free Text) Assessment: A/P Respiratory failure, morbid obesity, ?pneumonia, NSTEMI, pulmonary edema, influenza, OHV, JUAN PABLO, s/p AVR, s/p GI bleed, SEDA - Ventilatory support - Pulmonary toilets - Continue meds - Follow up labs - Renal follow up Critical care 40 min
[2018-12-05] MEDS: Azithromycin 500 MG in Sodium Chloride 0.9% 250 ML IVPB SCH (08:32)
[2018-12-05] MEDS: Propofol 10 mg/ml 1,000 MG/100 ML VIAL IV SCH ×2 (08:41→18:47)
[2018-12-05] MEDS: Furosemide 100 MG in Sodium Chloride 0.9% 100 ML IV SCH (11:54)
--- NOTE | 2018-12-05 12:00 | RAD ---
Date of service: 12/05/2018 HISTORY: pt is intubated COMPARISON: Chest radiograph dated 12/04/2018. FINDINGS: LUNGS: Pulmonary vascular congestion. Patchy right midlung infiltrate. PLEURA: No significant pleural effusion identified, no pneumothorax apparent. CARDIOVASCULAR: Aortic atherosclerotic calcifications. Cardiomediastinal silhouette stably enlarged. OSSEOUS STRUCTURES: Unchanged. VISUALIZED UPPER ABDOMEN: Normal. OTHER FINDINGS: Endotracheal, enteric tubes, unchanged. Right upper extremity PICC, unchanged. Removal of right internal jugular access central venous catheter new left internal jugular access non tunneled hemodialysis catheter with tip at the cavoatrial junction. IMPRESSION: For new left internal jugular access hemodialysis catheter in satisfactory position. Removal of right internal jugular access central venous catheter. Remainder tubes and lives, unchanged. Stable patchy right midlung infiltrate. No other significant interval changes.
--- NOTE | 2018-12-05 12:28 | CP.PCM.PN ---
Subjective - Date & Time of Evaluation Date of Evaluation: 12/05/18 Time of Evaluation: 12:25 - Subjective Subjective: Seen on rounds in the intensive care unit. Interim events were reviewed in the EMR. Today's chest x-ray was reviewed. Labs were reviewed. Hgb has been stable, mild leukocytosis persists. SaO2 on AM ABG was 100% on FiO2 of .40. AST/ALT continue to gradually increase; now 2X ULN. BUN/creat have decreased in response to ultrafiltration. Discussed with nursing. Had ultrafiltration yesterday. Patient is sedated, but moving about in the bed. Orally intubated and mechanically ventilated. Peak aiway pressure 35cm, plateau 32cm, mean 11cm. Neck is supple and trachea midline. Ecchymosis over chest and neck is no more extensive than the day before. No dullness on percussion anteriorly (difficult to appreciate accurately because of obesity). No subcutaneous emphysema palpated. Breath sounds are quite well heard bilaterally with dry rales in dependant zones bilaterally. No audible wheezes or bronchial breath sounds. Heart sounds are very distant, regular. Abdomen is obese with + bowel sounds. Dependant edema still present but slightly less pronounced. Extremities remain warm to touch, no cyanosis. Plan for repeat ultrafiltration later today. Will defer any vent weaning at this time and re-evaluate afterwards. Oxygenation is adequate at 40% supplementation. Continue sedation as needed. Monitor transaminase levels. CXR does look slightly improved overall with patchy infiltrates in the RML and Lingular regions. Critical care time spent 45min. Objective - Vital Signs/Intake and Output Vital Signs (last 24 hours): Temp Pulse Resp BP Pulse Ox 99.6 F 102 H 19 82/42 L 97 12/05/18 12:00 12/05/18 12:00 12/05/18 12:00 12/05/18 12:00 12/05/18 12:00 Intake and Output: 12/05/18 12/05/18 11:59 23:59 Intake Total 1452 Output Total 1100 Balance 352 - Medications Medications: Current Medications Acetaminophen (Tylenol 325mg Tab) 650 mg PO Q6H PRN PRN Reason: Pain (1-10) Last Admin: 12/01/18 11:20 Dose: 650 mg Acetaminophen (Tylenol 325mg Tab) 650 mg PO Q6H PRN PRN Reason: Fever >100.4 F Last Admin: 11/28/18 06:07 Dose: 650 mg Acetaminophen (Tylenol 160mg/5ml Oral Soln) 160 mg PO ONCE PRN PRN Reason: Flu symptoms Albuterol/Ipratropium (Duoneb 3 Mg/0.5 Mg (3 Ml) Ud) 3 ml INH RQ6 [facility] Last Admin: 12/05/18 07:35 Dose: 3 ml Atorvastatin Calcium (Lipitor) 40 mg PO DAILY [facility] Last Admin: 12/04/18 20:41 Dose: 40 mg Dimethicone (Proshield Plus Skin Protectant) 1 applic TOP Q8 [facility] Last Admin: 12/05/18 08:34 Dose: 1 applic Azithromycin 500 mg/ Sodium (Chloride) 250 mls @ 250 mls/hr IVPB DAILY [facility]; Protocol Last Admin: 12/05/18 08:32 Dose: 250 mls/hr Furosemide 100 mg/ Sodium (Chloride) 100 mls @ 10 mls/hr IV .Q10H [facility]; Protocol Last Admin: 12/05/18 11:54 Dose: 10 mls/hr Heparin Sodium/Dextrose (Heparin 25,000 Units/250ml In D5w) 25,000 units in 250 mls @ 14 mls/hr IV .[id number] [facility]; Protocol Propofol (Diprivan) 1,000 mg in 100 mls @ 3.552 mls/hr IV .Q24H [facility]; Protocol Stop: 12/06/18 08:23 Last Titration: 12/05/18 09:03 Dose: 10 mcg/kg/min, 7.103 mls/hr Metoprolol Tartrate (Lopressor) 12.5 mg PO Q12 [facility] Last Admin: 12/05/18 08:44 Dose: Not Given Morphine Sulfate (Morphine) 4 mg IVP Q4 PRN PRN Reason: Agitation Last Admin: 12/05/18 06:30 Dose: 4 mg Nystatin (Nystop Topical Powder) 1 applic TOP TID [facility] Last Admin: 12/05/18 08:34 Dose: 1 applic Pantoprazole Sodium (Protonix Inj) 40 mg IVP Q12 [facility] Last Admin: 12/05/18 08:35 Dose: 40 mg - Labs Labs: 12/05/18 04:50 12/05/18 04:50 PT 11.3 Seconds (9.8-13.1) 12/03/18 19:13 INR 1.0 12/03/18 19:13 APTT 36.5 Seconds (25.6-37.1) 12/05/18 04:50 Assessment and Plan (1) Respiratory failure with hypoxia and hypercapnia Status: Acute (2) Influenza A Status: Acute (3) Pneumonia and influenza Status: Acute (4) Morbid obesity Status: Chronic (5) COPD (chronic obstructive pulmonary disease) Status: Suspected
--- NOTE | 2018-12-05 14:06 | CP.PCM.PN ---
Subjective - Date & Time of Evaluation Date of Evaluation: 12/05/18 Time of Evaluation: 14:10 - Subjective Subjective: No new changes. Still intubated sedated but she is responsive to verbal stimuli. BC + patient on iv antbx. Still poor output. Fot HD today. Continue supportive rx. Objective - Vital Signs/Intake and Output Vital Signs (last 24 hours): Temp Pulse Resp BP Pulse Ox 99.6 F 96 H 16 92/44 L 100 12/05/18 12:00 12/05/18 13:00 12/05/18 13:00 12/05/18 13:00 12/05/18 13:00 Intake and Output: 12/05/18 12/05/18 11:59 23:59 Intake Total 1452 Output Total 1100 Balance 352 - Medications Medications: Current Medications Acetaminophen (Tylenol 325mg Tab) 650 mg PO Q6H PRN PRN Reason: Pain (1-10) Last Admin: 12/01/18 11:20 Dose: 650 mg Acetaminophen (Tylenol 325mg Tab) 650 mg PO Q6H PRN PRN Reason: Fever >100.4 F Last Admin: 11/28/18 06:07 Dose: 650 mg Acetaminophen (Tylenol 160mg/5ml Oral Soln) 160 mg PO ONCE PRN PRN Reason: Flu symptoms Albuterol/Ipratropium (Duoneb 3 Mg/0.5 Mg (3 Ml) Ud) 3 ml INH RQ6 [facility] Last Admin: 12/05/18 13:18 Dose: 3 ml Atorvastatin Calcium (Lipitor) 40 mg PO DAILY [facility] Last Admin: 12/04/18 20:41 Dose: 40 mg Dimethicone (Proshield Plus Skin Protectant) 1 applic TOP Q8 [facility] Last Admin: 12/05/18 08:34 Dose: 1 applic Azithromycin 500 mg/ Sodium (Chloride) 250 mls @ 250 mls/hr IVPB DAILY [facility]; Protocol Last Admin: 12/05/18 08:32 Dose: 250 mls/hr Furosemide 100 mg/ Sodium (Chloride) 100 mls @ 10 mls/hr IV .Q10H [facility]; Protocol Last Admin: 12/05/18 11:54 Dose: 10 mls/hr Heparin Sodium/Dextrose (Heparin 25,000 Units/250ml In D5w) 25,000 units in 250 mls @ 14 mls/hr IV .[id number] [facility]; Protocol Propofol (Diprivan) 1,000 mg in 100 mls @ 3.552 mls/hr IV .Q24H [facility]; Protocol Stop: 12/06/18 08:23 Last Titration: 12/05/18 09:03 Dose: 10 mcg/kg/min, 7.103 mls/hr Metoprolol Tartrate (Lopressor) 12.5 mg PO Q12 [facility] Last Admin: 12/05/18 08:44 Dose: Not Given Morphine Sulfate (Morphine) 4 mg IVP Q4 PRN PRN Reason: Agitation Last Admin: 12/05/18 06:30 Dose: 4 mg Nystatin (Nystop Topical Powder) 1 applic TOP TID [facility] Last Admin: 12/05/18 08:34 Dose: 1 applic Pantoprazole Sodium (Protonix Inj) 40 mg IVP Q12 [facility] Last Admin: 12/05/18 08:35 Dose: 40 mg - Labs Labs: 12/05/18 04:50 12/05/18 04:50 PT 11.3 Seconds (9.8-13.1) 12/03/18 19:13 INR 1.0 12/03/18 19:13 APTT 34.1 Seconds (25.6-37.1) 12/05/18 12:40 - Constitutional Appears: Chronically Ill - Head Exam Head Exam: ATRAUMATIC, NORMAL INSPECTION, NORMOCEPHALIC - Eye Exam Eye Exam: Normal appearance - ENT Exam ENT Exam: Mucous Membranes Moist - Neck Exam Neck Exam: Full ROM - Respiratory Exam Respiratory Exam: Decreased Breath Sounds - Cardiovascular Exam Cardiovascular Exam: REGULAR RHYTHM, +S1 - GI/Abdominal Exam GI & Abdominal Exam: Soft - Extremities Exam Extremities Exam: Normal Inspection - Neurological Exam Additional comments: sedated. Assessment and Plan (1) CAP (community acquired pneumonia) Status: Acute (2) CHF exacerbation Status: Acute (3) DVT prophylaxis Status: Acute (4) History of aortic valve replacement Status: Chronic (5) Influenza A Status: Acute (6) NSTEMI (non-ST elevated myocardial infarction) Status: Acute (7) Pneumonia and influenza Status: Acute (8) Respiratory distress Status: Acute (9) Respiratory failure with hypoxia and hypercapnia Status: Acute (10) Morbid obesity Status: Chronic (11) COPD (chronic obstructive pulmonary disease) Status: Suspected (12) Myocardial ischemia Status: Acute (13) Renal failure, acute Status: Acute (14) Hematoma Status: Acute (15) Sepsis Status: Acute
[2018-12-05 16:35] LABS: COMPLEMENT C4 46.8 mg/dL (14.0-44.0)
--- NOTE | 2018-12-05 23:44 | CP.PCM.PN ---
Subjective - Date & Time of Evaluation Date of Evaluation: 12/05/18 Time of Evaluation: 11:30 - Subjective Subjective: Patient still intubated; agitated at times, needing to restart propofol; urine output decreasing today after having improved yesterday; Objective - Vital Signs/Intake and Output Vital Signs (last 24 hours): Temp Pulse Resp BP Pulse Ox 98.4 F 100 H 17 91/46 L 100 12/05/18 20:00 12/05/18 22:00 12/05/18 22:00 12/05/18 22:00 12/05/18 22:00 Intake and Output: 12/05/18 12/06/18 18:59 06:59 Intake Total 1380 570 Output Total 750 Balance 630 570 - Medications Medications: Current Medications Acetaminophen (Tylenol 325mg Tab) 650 mg PO Q6H PRN PRN Reason: Pain (1-10) Last Admin: 12/01/18 11:20 Dose: 650 mg Acetaminophen (Tylenol 325mg Tab) 650 mg PO Q6H PRN PRN Reason: Fever >100.4 F Last Admin: 11/28/18 06:07 Dose: 650 mg Acetaminophen (Tylenol 160mg/5ml Oral Soln) 160 mg PO ONCE PRN PRN Reason: Flu symptoms Albuterol/Ipratropium (Duoneb 3 Mg/0.5 Mg (3 Ml) Ud) 3 ml INH RQ6 [facility] Last Admin: 12/05/18 19:27 Dose: 3 ml Atorvastatin Calcium (Lipitor) 40 mg PO DAILY [facility] Last Admin: 12/05/18 14:44 Dose: 40 mg Dimethicone (Proshield Plus Skin Protectant) 1 applic TOP Q8 [facility] Last Admin: 12/05/18 18:49 Dose: Not Given Azithromycin 500 mg/ Sodium (Chloride) 250 mls @ 250 mls/hr IVPB DAILY [facility]; Protocol Last Admin: 12/05/18 08:32 Dose: 250 mls/hr Furosemide 100 mg/ Sodium (Chloride) 100 mls @ 10 mls/hr IV .Q10H [facility]; Protocol Last Admin: 12/05/18 11:54 Dose: 10 mls/hr Heparin Sodium/Dextrose (Heparin 25,000 Units/250ml In D5w) 25,000 units in 250 mls @ 14 mls/hr IV .[id number] [facility]; Protocol Last Titration: 12/05/18 20:32 Dose: 19 mls/hr Propofol (Diprivan) 1,000 mg in 100 mls @ 3.552 mls/hr IV .Q24H [facility]; Protocol Stop: 12/06/18 08:23 Last Admin: 12/05/18 18:47 Dose: 15 mcg/kg/min, 10.655 mls/hr Metoprolol Tartrate (Lopressor) 12.5 mg PO Q12 [facility] Last Admin: 12/05/18 20:24 Dose: Not Given Morphine Sulfate (Morphine) 4 mg IVP Q4 PRN PRN Reason: Agitation Last Admin: 12/05/18 16:04 Dose: 4 mg Nystatin (Nystop Topical Powder) 1 applic TOP TID [facility] Last Admin: 12/05/18 18:49 Dose: Not Given Pantoprazole Sodium (Protonix Inj) 40 mg IVP Q12 [facility] Last Admin: 12/05/18 20:22 Dose: 40 mg - Labs Labs: 12/05/18 04:50 12/05/18 04:50 PT 11.3 Seconds (9.8-13.1) 12/03/18 19:13 INR 1.0 12/03/18 19:13 APTT 33.5 Seconds (25.6-37.1) 12/05/18 18:50 - Constitutional Appears: Non-toxic, No Acute Distress - Eye Exam Eye Exam: Normal appearance - Respiratory Exam Additional comments: overbreathing vent; mild wheezes; - Cardiovascular Exam Cardiovascular Exam: RRR, +S1, +S2. absent: Gallop, Rubs - GI/Abdominal Exam GI & Abdominal Exam: Soft - Extremities Exam Additional comments: edema of pitting areas/abd wall; upper ext edema; - Neurological Exam Neurological Exam: Alert, Awake - Psychiatric Exam Psychiatric exam: absent: Agitated - Skin Skin Exam: Warm. absent: Cyanosis Assessment and Plan (1) Renal failure, acute Assessment & Plan: Non-oliguric renal failure likely due to ATN in the setting of hypotension; however, repeat UA showing significantly increased pyuria without much bacteriuria; AIN is a possibility but inciting factor is unclear; Initiated on HD yesterday to help regulate fluid balance; stable electrolyte status and relatively low FIO2 requirement (mild hypoxia noted on ABG); Vanco level noted; continue to monitor random level before HD periodically to avoid toxicity; -HD today with target UF 1.5L net; -Continue lasix drip at 10 mg/hr; goal to keep overall net negative fluid balance; -Avoid nephrotoxic agents; -Will likely hold HD tomorrow to assess for improvement in renal function on Friday; Status: Acute (2) Acute hypoxemic respiratory failure Status: Acute (3) Anemia Status: Acute (4) Hypotension Status: Acute (5) Sepsis Status: Acute
[2018-12-06] MEDS: Morphine 4 MG/ML VIAL IVP PRN ×2 (00:29→04:20)
[2018-12-06] MEDS: Proshield Plus GEL TOP SCH ×3 (00:29→16:49)
[2018-12-06] MEDS: Albuterol-Ipratrop 3 mg / 0.5 (3 ml) UD INH SCH ×4 (01:52→19:09)
[2018-12-06 06:30] LABS: ABG ALLEN TEST YES; ARTERIAL BLOOD GAS HCO3 24.4 mmol/L (21-28); ARTERIAL BLOOD GAS HEMOGLOBIN 7.7 g/dL (11.7-17.4); ARTERIAL BLOOD GAS O2 CAPACITY 10.4 mL/dL (16-24); ARTERIAL BLOOD GAS O2 CONTENT 10.4 ML/dL (15-23); ARTERIAL BLOOD GAS O2 SAT 100.1 % (95-98); ARTERIAL BLOOD GAS PCO2 48 mm/Hg (35-45); ARTERIAL BLOOD GAS PH 7.33 (7.35-7.45); ARTERIAL BLOOD GAS PO2 76 mm/Hg (80-100); ARTERIAL BLOOD GAS TCO2 26.8 mmol/L (22-28)
[2018-12-06 07:34] LABS: CALCIUM 8.2 mg/dL (8.4-10.2)
[2018-12-06 07:38] LABS: BASO # 0.1 K/uL (0.0-0.2); BASO % 0.5 % (0.0-2.0); EOS # 0.8 K/uL (0.0-0.7); EOS % 5.7 % (0.0-4.0); HEMOGLOBIN 7.4 g/dL (12.0-16.0); LYMPH # 1.5 K/uL (1.0-4.3); LYMPH % 10.4 % (20.0-40.0); MEAN CELL VOLUME 93.6 fl (81.0-99.0); MEAN CORPUSCULAR HEMOGLOBIN 30.6 pg (27.0-31.0); MEAN CORPUSCULAR HGB CONC 32.7 g/dL (33.0-37.0); MEAN PLATELET VOLUME 8.4 fl (7.2-11.7); MONO % 6.9 % (0.0-10.0); NEUT # 11.2 K/uL (1.8-7.0); NEUT % 76.5 % (50.0-75.0); NRBC % 0.1 % (0.0-0.0); RBC 2.42 Mil/uL (3.80-5.20); WHITE BLOOD COUNT 14.6 K/uL (4.8-10.8)
--- NOTE | 2018-12-06 07:42 | CP.CCUPN ---
CCU Subjective - Physician Review Events Since Last Encounter (Free Text): Patient on ventilator, on PRVC TV 450, RR 10, FIO2 50%, no pressors, opens eyes to verbal stimuli, events reviewed CCU Objective - Vital Signs / Intake & Output Vital Signs (Last 4 hours): Vital Signs Temp Pulse Resp BP Pulse Ox 12/06/18 06:54 94 H 15 97/44 L 94 L 12/06/18 06:00 93 H 14 99/48 L 98 12/06/18 05:00 93 H 14 91/52 L 98 12/06/18 04:00 98.1 F 99 H 20 87/42 L 97 Intake and Output (Last 8hrs): Intake & Output 12/05/18 12/06/18 12/06/18 22:59 06:59 14:59 Intake Total 940 82 Output Total 250 Balance 690 82 Weight 261 lb Intake: IV 330 12 Tube Feeding 210 70 Free Water Flush 400 Output: Urine 250 Urethral (Olivarez) 250 - Physical Exam Head: Positive for: Atraumatic, Normocephalic Pupils: Positive for: PERRL Ears: Positive for: Normal Mouth: Positive for: Moist Mucous Membranes Nose (External): Positive for: Atraumatic Nose (Internal): Positive for: Normal Inspection Neck: Positive for: Normal Range of Motion Respiratory/Chest: Positive for: Rhonchi Cardiovascular: Positive for: Regular Rate and Rhythm Abdomen: Positive for: Normal Bowel Sounds, Other (morbid obesity) Neurological: Positive for: Other (on ventilator) - Medications Active Medications: Active Medications Generic Name Dose Route Start Last Admin Trade Name Freq PRN Reason Stop Dose Admin Acetaminophen 650 mg 11/25/18 22:27 12/01/18 11:20 Tylenol 325mg Tab PO 650 mg Q6H PRN Administration Pain (1-10) Acetaminophen 650 mg 11/25/18 22:27 11/28/18 06:07 Tylenol 325mg Tab PO 650 mg Q6H PRN Administration Fever >100.4 F Acetaminophen 160 mg 12/01/18 10:36 Tylenol 160mg/5ml Oral Soln PO ONCE PRN Flu symptoms Albuterol/Ipratropium 3 ml 12/01/18 14:00 12/06/18 01:52 Duoneb 3 Mg/0.5 Mg (3 Ml) Ud INH 3 ml RQ6 [facility] Administration Atorvastatin Calcium 40 mg 11/26/18 09:00 12/05/18 14:44 Lipitor PO 40 mg DAILY [facility] Administration Dimethicone 1 applic 11/26/18 17:00 12/06/18 00:29 Proshield Plus Skin Protectant TOP 1 applic Q8 [facility] Administration Azithromycin 500 mg/ Sodium 250 mls @ 250 mls/hr 12/01/18 10:00 12/05/18 08:32 Chloride IVPB 250 mls/hr DAILY [facility] Administration Protocol Furosemide 100 mg/ Sodium 100 mls @ 10 mls/hr 12/03/18 11:45 12/05/18 11:54 Chloride IV 10 mls/hr .Q10H [facility] Administration Protocol 10 MG/HR Propofol 1,000 mg in 100 mls @ 3.552 mls/hr 12/05/18 08:30 12/05/18 18:47 Diprivan IV 12/06/18 08:23 15 mcg/kg/min .Q24H [facility] 10.655 mls/hr Administration Protocol 5 MCG/KG/MIN Metoprolol Tartrate 12.5 mg 12/01/18 21:00 12/05/18 20:24 Lopressor PO Not Given Q12 [facility] Morphine Sulfate 4 mg 12/04/18 08:48 12/06/18 04:20 Morphine IVP 4 mg Q4 PRN Administration Agitation Nystatin 1 applic 11/26/18 17:00 12/05/18 18:49 Nystop Topical Powder TOP Not Given TID [facility] Pantoprazole Sodium 40 mg 11/29/18 21:00 12/05/18 20:22 Protonix Inj IVP 40 mg Q12 [facility] Administration - Patient Studies Lab Studies: Microbiology Studies 12/02/18 15:59 Blood Culture - Preliminary Blood-Thru Central Line NO GROWTH AFTER 3 DAYS 12/02/18 06:16 Gram Stain - Final Trachasp Sputum Culture - Final Yeast Species 12/02/18 15:49 Blood Culture - Preliminary Blood-Thru Central Line Coagulase Neg Staphylococcus Gram Stain - Final Lab Studies 12/06/18 12/06/18 12/06/18 Range/Units 07:00 06:45 05:04 APTT 53.1 H (25.6-37.1) Seconds pCO2 48 H (35-45) mm/Hg pO2 76 L (80-100) mm/Hg HCO3 24.4 (21-28) mmol/L ABG pH 7.33 L (7.35-7.45) ABG Total CO2 26.8 (22-28) mmol/L ABG O2 Saturation 100.1 H (95-98) % ABG O2 Content 10.4 L (15-23) ML/dL ABG Base Excess -0.7 (-2.0-3.0) mmol/L ABG Hemoglobin 7.7 L (11.7-17.4) g/dL ABG Carboxyhemoglobin 4.1 H (0.5-1.5) % POC ABG HHb (Measured) -0.1 L (0.0-5.0) % ABG Methemoglobin 1.3 (0.0-3.0) % ABG O2 Capacity 10.4 L (16-24) mL/dL Juanito Test Yes A-a O2 Difference 149.0 mm/Hg Hgb O2 Saturation 94.7 L (95.0-98.0) % Vent Mode A/c Mechanical Rate 10 FiO2 40.0 % Tidal Volume 450 PEEP 5 Sodium 139 (132-148) mmol/l Potassium 4.0 (3.6-5.0) MMOL/L Chloride 102 (98-107) mmol/L Carbon Dioxide 25 (22-30) mmol/L Anion Gap 16 (10-20) BUN 55 H (7-17) mg/dl Creatinine 3.2 H (0.7-1.2) mg/dl Est GFR ( Amer) 18 Est GFR (Non-Af Amer) 15 Random Glucose 120 H (65-105) mg/dL Calcium 8.2 L (8.4-10.2) mg/dL Complement C3 (88.0-165.0) mg/dL Complement C4 (14.0-44.0) mg/dL Hep Bs Antibody, Quant (>or=10) mIU/mL 12/06/18 12/05/18 12/05/18 Range/Units 00:10 18:50 12:40 APTT 41.7 H 33.5 34.1 (25.6-37.1) Seconds pCO2 (35-45) mm/Hg pO2 (80-100) mm/Hg HCO3 (21-28) mmol/L ABG pH (7.35-7.45) ABG Total CO2 (22-28) mmol/L ABG O2 Saturation (95-98) % ABG O2 Content (15-23) ML/dL ABG Base Excess (-2.0-3.0) mmol/L ABG Hemoglobin (11.7-17.4) g/dL ABG Carboxyhemoglobin (0.5-1.5) % POC ABG HHb (Measured) (0.0-5.0) % ABG Methemoglobin (0.0-3.0) % ABG O2 Capacity (16-24) mL/dL Juanito Test A-a O2 Difference mm/Hg Hgb O2 Saturation (95.0-98.0) % Vent Mode Mechanical Rate FiO2 % Tidal Volume PEEP Sodium (132-148) mmol/l Potassium (3.6-5.0) MMOL/L Chloride (98-107) mmol/L Carbon Dioxide (22-30) mmol/L Anion Gap (10-20) BUN (7-17) mg/dl Creatinine (0.7-1.2) mg/dl Est GFR ( Amer) Est GFR (Non-Af Amer) Random Glucose (65-105) mg/dL Calcium (8.4-10.2) mg/dL Complement C3 (88.0-165.0) mg/dL Complement C4 (14.0-44.0) mg/dL Hep Bs Antibody, Quant (>or=10) mIU/mL 12/05/18 12/04/18 Range/Units 04:50 15:39 APTT (25.6-37.1) Seconds pCO2 (35-45) mm/Hg pO2 (80-100) mm/Hg HCO3 (21-28) mmol/L ABG pH (7.35-7.45) ABG Total CO2 (22-28) mmol/L ABG O2 Saturation (95-98) % ABG O2 Content (15-23) ML/dL ABG Base Excess (-2.0-3.0) mmol/L ABG Hemoglobin (11.7-17.4) g/dL ABG Carboxyhemoglobin (0.5-1.5) % POC ABG HHb (Measured) (0.0-5.0) % ABG Methemoglobin (0.0-3.0) % ABG O2 Capacity (16-24) mL/dL Juanito Test A-a O2 Difference mm/Hg Hgb O2 Saturation (95.0-98.0) % Vent Mode Mechanical Rate FiO2 % Tidal Volume PEEP Sodium (132-148) mmol/l Potassium (3.6-5.0) MMOL/L Chloride (98-107) mmol/L Carbon Dioxide (22-30) mmol/L Anion Gap (10-20) BUN (7-17) mg/dl Creatinine (0.7-1.2) mg/dl Est GFR ( Amer) Est GFR (Non-Af Amer) Random Glucose (65-105) mg/dL Calcium (8.4-10.2) mg/dL Complement C3 130.0 (88.0-165.0) mg/dL Complement C4 46.8 H (14.0-44.0) mg/dL Hep Bs Antibody, Quant 11 (>or=10) mIU/mL Laboratory Results - last 24 hr 12/04/18 12/05/18 12/05/18 15:39 04:50 12:40 APTT 34.1 pCO2 pO2 HCO3 ABG pH ABG Total CO2 ABG O2 Saturation ABG O2 Content ABG Base Excess ABG Hemoglobin ABG Carboxyhemoglobin POC ABG HHb (Measured) ABG Methemoglobin ABG O2 Capacity Juanito Test A-a O2 Difference Hgb O2 Saturation Vent Mode Mechanical Rate FiO2 Tidal Volume PEEP Sodium Potassium Chloride Carbon Dioxide Anion Gap BUN Creatinine Est GFR ( Amer) Est GFR (Non-Af Amer) Random Glucose Calcium Complement C3 130.0 Complement C4 46.8 H Hep Bs Antibody, Quant 11 12/05/18 12/06/18 12/06/18 18:50 00:10 05:04 APTT 33.5 41.7 H pCO2 48 H pO2 76 L HCO3 24.4 ABG pH 7.33 L ABG Total CO2 26.8 ABG O2 Saturation 100.1 H ABG O2 Content 10.4 L ABG Base Excess -0.7 ABG Hemoglobin 7.7 L ABG Carboxyhemoglobin 4.1 H POC ABG HHb (Measured) -0.1 L ABG Methemoglobin 1.3 ABG O2 Capacity 10.4 L Juanito Test Yes A-a O2 Difference 149.0 Hgb O2 Saturation 94.7 L Vent Mode A/c Mechanical Rate 10 FiO2 40.0 Tidal Volume 450 PEEP 5 Sodium Potassium Chloride Carbon Dioxide Anion Gap BUN Creatinine Est GFR ( Amer) Est GFR (Non-Af Amer) Random Glucose Calcium Complement C3 Complement C4 Hep Bs Antibody, Quant 12/06/18 12/06/18 06:45 07:00 APTT 53.1 H pCO2 pO2 HCO3 ABG pH ABG Total CO2 ABG O2 Saturation ABG O2 Content ABG Base Excess ABG Hemoglobin ABG Carboxyhemoglobin POC ABG HHb (Measured) ABG Methemoglobin ABG O2 Capacity Juanito Test A-a O2 Difference Hgb O2 Saturation Vent Mode Mechanical Rate FiO2 Tidal Volume PEEP Sodium 139 Potassium 4.0 Chloride 102 Carbon Dioxide 25 Anion Gap 16 BUN 55 H Creatinine 3.2 H Est GFR ( Amer) 18 Est GFR (Non-Af Amer) 15 Random Glucose 120 H Calcium 8.2 L Complement C3 Complement C4 Hep Bs Antibody, Quant Radiology Impressions: Radiology Impressions Chest X-Ray 12/05/18 05:00 IMPRESSION: For new left internal jugular access hemodialysis catheter in satisfactory position. Removal of right internal jugular access central venous catheter. Remainder tubes and lives, unchanged. Stable patchy right midlung infiltrate. No other significant interval changes. Assessment/Plan - Assessment and Plan (Free Text) Assessment: A/P Respiratory failure, morbid obesity, ?pneumonia, NSTEMI, pulmonary edema, influenza, OHV, JUAN PABLO, s/p AVR, s/p GI bleed, SEDA - Ventilatory support - Pulmonary toilets - Continue meds - Follow up labs - Renal follow up Critical care 35 min
[2018-12-06] MEDS ORDERED: Heparin 25,000units in D5W 25,000 UNITS/250 ML BAG IV SCH (08:30)
[2018-12-06] MEDS: Azithromycin 500 MG in Sodium Chloride 0.9% 250 ML IVPB SCH (09:31)
[2018-12-06] MEDS: Furosemide 100 MG in Sodium Chloride 0.9% 100 ML IV SCH (09:44)
--- NOTE | 2018-12-06 11:14 | RAD ---
Date of service: 12/06/2018 HISTORY: Patient Intubated COMPARISON: Chest radiograph dated 12/05/2018 FINDINGS: LUNGS: Pulmonary vascular congestion. Patchy right midlung infiltrate. PLEURA: No significant pleural effusion identified, no pneumothorax apparent. CARDIOVASCULAR: Prior sternotomy with sternal wires and surgical clips in place. Aortic atherosclerotic calcifications. Cardiomediastinal silhouette stably enlarged. OSSEOUS STRUCTURES: Unchanged. VISUALIZED UPPER ABDOMEN: Normal. OTHER FINDINGS: Endotracheal and enteric tubes, unchanged. Left internal jugular access non tunneled hemodialysis catheter, unchanged. Right upper extremity PICC, unchanged. IMPRESSION: Stable tubes and lines. Stable pulmonary vascular congestion. Stable right midlung patchy infiltrate. No significant interval change.
--- NOTE | 2018-12-06 12:37 | CP.PCM.PN ---
Subjective - Date & Time of Evaluation Date of Evaluation: 12/06/18 Time of Evaluation: 12:40 - Subjective Subjective: Patient on ventilator responsive to verbal stimuli, On PRVC TV 450, RR 10, FIO2 50% In post HD still mild congestion H/H stable Consultants appreciated. The prognosis is guarded. Objective - Vital Signs/Intake and Output Vital Signs (last 24 hours): Temp Pulse Resp BP Pulse Ox 99.1 F 98 H 19 98/48 L 98 12/06/18 12:00 12/06/18 12:00 12/06/18 12:00 12/06/18 12:00 12/06/18 12:00 Intake and Output: 12/06/18 12/06/18 11:59 23:59 Intake Total 592 10 Output Total 450 100 Balance 142 -90 - Medications Medications: Current Medications Acetaminophen (Tylenol 325mg Tab) 650 mg PO Q6H PRN PRN Reason: Pain (1-10) Last Admin: 12/01/18 11:20 Dose: 650 mg Acetaminophen (Tylenol 325mg Tab) 650 mg PO Q6H PRN PRN Reason: Fever >100.4 F Last Admin: 11/28/18 06:07 Dose: 650 mg Acetaminophen (Tylenol 160mg/5ml Oral Soln) 160 mg PO ONCE PRN PRN Reason: Flu symptoms Albuterol/Ipratropium (Duoneb 3 Mg/0.5 Mg (3 Ml) Ud) 3 ml INH RQ6 [facility] Last Admin: 12/06/18 07:51 Dose: 3 ml Atorvastatin Calcium (Lipitor) 40 mg PO DAILY [facility] Last Admin: 12/06/18 09:29 Dose: 40 mg Dimethicone (Proshield Plus Skin Protectant) 1 applic TOP Q8 [facility] Last Admin: 12/06/18 09:30 Dose: 1 applic Azithromycin 500 mg/ Sodium (Chloride) 250 mls @ 250 mls/hr IVPB DAILY [facility]; Pr otocol Last Admin: 12/06/18 09:31 Dose: 250 mls/hr Furosemide 100 mg/ Sodium (Chloride) 100 mls @ 10 mls/hr IV .Q10H [facility]; Protocol Last Admin: 12/06/18 09:44 Dose: 10 mls/hr Heparin Sodium/Dextrose (Heparin 25,000 Units/250ml In D5w) 25,000 units in 250 mls @ 18 mls/hr IV .[id number] [facility]; Protocol Metoprolol Tartrate (Lopressor) 12.5 mg PO Q12 [facility] Last Admin: 12/06/18 09:29 Dose: Not Given Morphine Sulfate (Morphine) 4 mg IVP Q4 PRN PRN Reason: Agitation Last Admin: 12/06/18 04:20 Dose: 4 mg Nystatin (Nystop Topical Powder) 1 applic TOP TID [facility] Last Admin: 12/06/18 12:22 Dose: 1 applic Pantoprazole Sodium (Protonix Inj) 40 mg IVP Q12 [facility] Last Admin: 12/06/18 09:30 Dose: 40 mg - Labs Labs: 12/06/18 06:45 12/06/18 06:45 PT 11.3 Seconds (9.8-13.1) 12/03/18 19:13 INR 1.0 12/03/18 19:13 APTT 53.1 Seconds (25.6-37.1) H 12/06/18 07:00 - Constitutional Appears: Chronically Ill - Head Exam Head Exam: ATRAUMATIC, NORMAL INSPECTION, NORMOCEPHALIC - Eye Exam Eye Exam: Normal appearance - ENT Exam Additional comments: reabsorbing ecchymosis - Respiratory Exam Respiratory Exam: Decreased Breath Sounds, Rales - Cardiovascular Exam Cardiovascular Exam: REGULAR RHYTHM, +S1, +S2 - GI/Abdominal Exam GI & Abdominal Exam: Soft - Neurological Exam Additional comments: sedated responsive to verbal stimuli Assessment and Plan (1) CAP (community acquired pneumonia) Status: Acute (2) CHF exacerbation Status: Acute (3) DVT prophylaxis Status: Acute (4) History of aortic valve replacement Status: Chronic (5) Influenza A Status: Acute (6) NSTEMI (non-ST elevated myocardial infarction) Status: Acute (7) Pneumonia and influenza Status: Acute (8) Respiratory distress Status: Acute (9) Respiratory failure with hypoxia and hypercapnia Status: Acute (10) Morbid obesity Status: Chronic (11) COPD (chronic obstructive pulmonary disease) Status: Suspected (12) Myocardial ischemia Status: Acute (13) Renal failure, acute Status: Acute (14) Hematoma Status: Acute (15) Sepsis Status: Acute
--- NOTE | 2018-12-06 13:54 | CP.PCM.CON ---
History of Present Illness - History of Present Illness History of Present Illness: 58 yo female was admitted to [facility] 10 days ago with acute influnza A and Pneumonia complicated by NSTEMI respiratory failure pneumonia GI bleed and renal failure ID consulted for antibiotic mangement Recently developed rash on extremities- macular - etiology unclear Patient unable to provide any history PMH AVR, Morbid Obesity , JUAN PABLO NKDA FH - N/C SH + smoker Review of Systems - Review of Systems All systems: reviewed and no additional remarkable complaints except - Constitutional Constitutional: As Per HPI - EENT Eyes: absent: As Per HPI, Blind Spots, Blurred Vision, Change in Vision, Decreased Night Vision, Diplopia, Discharge, Dry Eye, Exophthalmos, Floaters, Irritation, Itchy Eyes, Loss of Peripheral Vision, Pain, Photophobia, Requires Corrective Lenses, Sees Flashes, Spots in Vision, Tunnel Vision, Other Visual Disturbances, Loss of Vision, Other Nose/Mouth/Throat: absent: As Per HPI, Epistaxis, Nasal Congestion, Nasal Discharge, Nasal Obstruction, Nasal Trauma, Nose Pain, Post Nasal Drip, Sinus Pain, Sinus Pressure, Bleeding Gums, Change in Voice, Dental Pain, Dry Mouth, Dysphagia, Halitosis, Hoarsness, Lip Swelling, Mouth Lesions, Mouth Pain, Odynophagia, Sore Throat, Throat Swelling, Tongue Swelling, Facial Pain, Neck Pain, Neck Mass, Other - Breasts Breasts: absent: As Per HPI, Change in Shape, Mass, Pain, Nipple Discharge, Nipple Inversion, Skin Changes, Swelling, Other - Cardiovascular Cardiovascular: As Per HPI - Respiratory Respiratory: As Per HPI - Gastrointestinal Gastrointestinal: As Per HPI - Genitourinary Genitourinary: absent: As Per HPI, Change in Urinary Stream, Difficulty Urinating, Dysuria, Flank Pain, Hematuria, Pyuria, Nocturia, Urinary Incontinence, Urinary Frequency, Urinary Hesitance, Urinary Urgency, Voiding Freq/Small Amts, Freq UTI, Hx Renal/Bladder Calculi, Hx /Renal Surgery, Bladder Distension, Other - Reproductive: Female Reproductive:Female: absent: As Per HPI, Amenorrhea, Amenorrhea/ Control, Currently Menstual, Cycle <21 Days, Cycle >35 Days, Cycle Variable, Menses 1-7 Days, Menses >/= 8 Days, Menses Variable, Cycle > 4 Weeks Between, No Menses for 6 Months, Heavy Menses, Light Menses, Normal Menses, Spotting Between Cycles, S/P Hysterectomy, Menopausal, Post Menopausal, Premenarche, Abnormal Vaginal Bleeding, Dysmenorrhea, Dyspareunia, Genital Lesions, Genital Pruritis, Pelvic Pain, Prolapse Symptoms, Sexual Dysfunction, Vaginal Discharge, Vaginal Dryness, Vaginal Odor, Vaginal Pruritis, Other - Menstruation Menstruation: absent: As Per HPI, Amenorrhea, Amenorrhea/ Control, Cur rently Menstual, Cycle <21 Days, Cycle >35 Days, Cycle Variable, Menses 1-7 Days, Menses >/= 8 Days, Menses Variable, Cycle > 4 Weeks Between, No Menses for 6 Months, Heavy Menses, Light Menses, Normal Menses, Spotting Between Cycles, S/P Hysterectomy, Menopausal, Post Menopausal, Premenarche, Abnormal Vaginal Bleeding, Dysmenorrhea, Other - Musculoskeletal Musculoskeletal: absent: As Per HPI, Abnormal Gait, Arthralgias, Atrophy, Back Pain, Deformity, Joint Swelling, Limited Range of Motion, Loss of Height, Muscle Cramps, Muscle Weakness, Myalgias, Neck Pain, Numbness, Radiating Pain into Limb, Stiffness, Tingling, Other - Integumentary Integumentary: As Per HPI - Neurological Neurological: absent: As Per HPI, Abnormal Gait, Abnormal Hearing, Abnormal Movements, Abnormal Speech, Behavioral Changes, Burning Sensations, Confusion, Convulsions, Disequilibrium, Dizziness, Numbness, Focal Weakness, Frequent Falls, Headaches, Lack of Coordination, Loss of Vision, Memory Loss, Paresthesias, Radicular Pain, Restless Legs, Sensory Deficit, Syncope, Tingling, Tremor, Vertigo, Weakness, Other Visual Disturbances, Other - Psychiatric Psychiatric: absent: As Per HPI, Abnormal Sleep Pattern, Anhedonia, Anxiety, Auditory Hallucinations, Behavioral Changes, Change in Appetite, Change in Libido, Confusion, Depression, Difficulty Concentrating, Hallucinations, Homicidal Ideation, Hopelessness, Irritability, Memory Loss, Mood Swings, Panic Attacks, Paranoia, Suicidal Ideation, Visual Hallucinations, Tactile Hallucinations, Other - Endocrine Endocrine: absent: As Per HPI, Change in Body Appearance, Change in Libido, Cold Intolorance, Deepening of Voice, Excessive Sweating, Fatigue, Flushing, Heat Intolorance, Increase in Ring/Shoe/Hat Size, Palpitations, Polydipsia, Polyphagia, Polyuria, Other - Hematologic/Lymphatic Hematologic: Easy Bleeding, Easy Bruising Past Patient History - Past Medical History & Family History Past Medical History?: Yes - Past Social History Smoking Status: Heavy Smoker > 10 Cigarettes Daily - CARDIAC Hx Congestive Heart Failure: Yes Hx Hypertension: Yes Other/Comment: AVR - PULMONARY Hx Chronic Obstructive Pulmonary Disease (COPD): Yes (possible) - NEUROLOGICAL Hx Neurological Disorder: No - HEENT Hx HEENT Problems: No - RENAL Hx Chronic Kidney Disease: No - ENDOCRINE/METABOLIC Hx Endocrine Disorders: No - HEMATOLOGICAL/ONCOLOGICAL Hx Blood Disorders: No Hx Human Immunodeficiency Virus (HIV): No - INTEGUMENTARY Hx Dermatological Problems: No - MUSCULOSKELETAL/RHEUMATOLOGICAL Hx Falls: No - GASTROINTESTINAL Hx Gastrointestinal Disorders: No Other/Comment: gastric bypass-gastric band. >morbid obesity - GENITOURINARY/GYNECOLOGICAL Hx Genitourinary Disorders: No - PSYCHIATRIC Hx Substance Use: No - SURGICAL HISTORY Hx Gastric Bypass Surgery: Yes Hx Valve Replacement: Yes (aortic) - ANESTHESIA Hx Anesthesia: Yes Hx Anesthesia Reactions: No Hx Malignant Hyperthermia: No Has any member of the family had a problem w/ anesthesia?: No Meds Allergies/Adverse Reactions: Allergies Allergy/AdvReac Type Severity Reaction Status Date / Time No Known Allergies Allergy Verified 11/25/18 20:03 - Medications Medications: Current Medications Acetaminophen (Tylenol 325mg Tab) 650 mg PO Q6H PRN PRN Reason: Pain (1-10) Last Admin: 12/01/18 11:20 Dose: 650 mg Acetaminophen (Tylenol 325mg Tab) 650 mg PO Q6H PRN PRN Reason: Fever >100.4 F Last Admin: 11/28/18 06:07 Dose: 650 mg Acetaminophen (Tylenol 160mg/5ml Oral Soln) 160 mg PO ONCE PRN PRN Reason: Flu symptoms Albuterol/Ipratropium (Duoneb 3 Mg/0.5 Mg (3 Ml) Ud) 3 ml INH RQ6 [facility] Last Admin: 12/06/18 13:24 Dose: 3 ml Atorvastatin Calcium (Lipitor) 40 mg PO DAILY [facility] Last Admin: 12/06/18 09:29 Dose: 40 mg Dimethicone (Proshield Plus Skin Protectant) 1 applic TOP Q8 [facility] Last Admin: 12/06/18 09:30 Dose: 1 applic Azithromycin 500 mg/ Sodium (Chloride) 250 mls @ 250 mls/hr IVPB DAILY [facility]; Protocol Last Admin: 12/06/18 09:31 Dose: 250 mls/hr Furosemide 100 mg/ Sodium (Chloride) 100 mls @ 10 mls/hr IV .Q10H [facility]; Protocol Last Admin: 12/06/18 09:44 Dose: 10 mls/hr Heparin Sodium/Dextrose (Heparin 25,000 Units/250ml In D5w) 25,000 units in 250 mls @ 18 mls/hr IV .[id number] [facility]; Protocol Metoprolol Tartrate (Lopressor) 12.5 mg PO Q12 [facility] Last Admin: 12/06/18 09:29 Dose: Not Given Morphine Sulfate (Morphine) 4 mg IVP Q4 PRN PRN Reason: Agitation Last Admin: 12/06/18 04:20 Dose: 4 mg Nystatin (Nystop Topical Powder) 1 applic TOP TID [facility] Last Admin: 12/06/18 12:22 Dose: 1 applic Pantoprazole Sodium (Protonix Inj) 40 mg IVP Q12 [facility] Last Admin: 12/06/18 09:30 Dose: 40 mg Physical Exam - Constitutional Appears: No Acute Distress, Confused, Chronically Ill - Head Exam Head Exam: ATRAUMATIC, NORMAL INSPECTION, NORMOCEPHALIC - Eye Exam Eye Exam: PERRL. absent: Scleral icterus - ENT Exam ENT Exam: Mucous Membranes Dry, Normal External Ear Exam. absent: Normal Oropharynx Additional comments: ETT + - Neck Exam Neck exam: Negative for: Lymphadenopathy Additional comments: ecchymosis over upper torso - Respiratory Exam Respiratory Exam: Decreased Breath Sounds, Clear to Auscultation Bilateral, Rhonchi - Cardiovascular Exam Cardiovascular Exam: REGULAR RHYTHM, +S1, +S2 - GI/Abdominal Exam GI & Abdominal Exam: Diminished Bowel Sounds, Distended, Hernia, Soft. absent: Guarding, Rebound, Rigid, Tenderness Additional comments: large bilat inguinal hernias ? - Rectal Exam Rectal Exam: Deferred - Exam Exam: NORMAL INSPECTION - Extremities Exam Extremities exam: Positive for: pedal edema. Negative for: calf tenderness, normal capillary refill, normal inspection, tenderness, pedal pulses present - Back Exam Back exam: absent: CVA tenderness (L), CVA tenderness (R) - Neurological Exam Neurological exam: Altered - Psychiatric Exam Psychiatric exam: Depressed - Skin Skin Exam: Rash Results - Vital Signs Recent Vital Signs: Last Vital Signs Temp 99.1 F 12/06/18 12:00 Pulse 98 H 12/06/18 12:00 Resp 19 12/06/18 12:00 BP 98/48 L 12/06/18 12:00 Pulse Ox 98 12/06/18 12:00 - Labs Result Diagrams: 12/06/18 06:45 12/06/18 06:45 Labs: Laboratory Results - last 24 hr 12/04/18 12/04/18 12/05/18 02:40 02:40 04:50 WBC RBC Hgb Hct MCV MCH MCHC RDW Plt Count MPV Neut % (Auto) Lymph % (Auto) [place] % (Auto) Eos % (Auto) Baso % (Auto) Neut # (Auto) Lymph # (Auto) [place] # (Auto) Eos # (Auto) Baso # (Auto) APTT pCO2 pO2 HCO3 ABG pH ABG Total CO2 ABG O2 Saturation ABG O2 Content ABG Base Excess ABG Hemoglobin ABG Carboxyhemoglobin POC ABG HHb (Measured) ABG Methemoglobin ABG O2 Capacity Juanito Test A-a O2 Difference Hgb O2 Saturation Vent Mode Mechanical Rate FiO2 Tidal Volume PEEP Sodium Potassium Chloride Carbon Dioxide Anion Gap BUN Creatinine Est GFR ( Amer) Est GFR (Non-Af Amer) Random Glucose Calcium U Random Total Protein 2552 H Urine Creatinine 28 Urine Microalbumin 3.0 Microalb/Creat Ratio 106 H Complement C3 130.0 Complement C4 46.8 H 12/05/18 12/06/18 12/06/18 18:50 00:10 05:04 WBC RBC Hgb Hct MCV MCH MCHC RDW Plt Count MPV Neut % (Auto) Lymph % (Auto) [place] % (Auto) Eos % (Auto) Baso % (Auto) Neut # (Auto) Lymph # (Auto) [place] # (Auto) Eos # (Auto) Baso # (Auto) APTT 33.5 41.7 H pCO2 48 H pO2 76 L HCO3 24.4 ABG pH 7.33 L ABG Total CO2 26.8 ABG O2 Saturation 100.1 H ABG O2 Content 10.4 L ABG Base Excess -0.7 ABG Hemoglobin 7.7 L ABG Carboxyhemoglobin 4.1 H POC ABG HHb (Measured) -0.1 L ABG Methemoglobin 1.3 ABG O2 Capacity 10.4 L Juanito Test Yes A-a O2 Difference 149.0 Hgb O2 Saturation 94.7 L Vent Mode A/c Mechanical Rate 10 FiO2 40.0 Tidal Volume 450 PEEP 5 Sodium Potassium Chloride Carbon Dioxide Anion Gap BUN Creatinine Est GFR ( Amer) Est GFR (Non-Af Amer) Random Glucose Calcium U Random Total Protein Urine Creatinine Urine Microalbumin Microalb/Creat Ratio Complement C3 Complement C4 12/06/18 12/06/18 12/06/18 06:45 06:45 07:00 WBC 14.6 H RBC 2.42 L Hgb 7.4 L Hct 22.7 L MCV 93.6 MCH 30.6 MCHC 32.7 L RDW 15.0 H Plt Count 312 MPV 8.4 Neut % (Auto) 76.5 H Lymph % (Auto) 10.4 L [place] % (Auto) 6.9 Eos % (Auto) 5.7 H Baso % (Auto) 0.5 Neut # (Auto) 11.2 H Lymph # (Auto) 1.5 [place] # (Auto) 1.0 H Eos # (Auto) 0.8 H Baso # (Auto) 0.1 APTT 53.1 H pCO2 pO2 HCO3 ABG pH ABG Total CO2 ABG O2 Saturation ABG O2 Content ABG Base Excess ABG Hemoglobin ABG Carboxyhemoglobin POC ABG HHb (Measured) ABG Methemoglobin ABG O2 Capacity Juanito Test A-a O2 Difference Hgb O2 Saturation Vent Mode Mechanical Rate FiO2 Tidal Volume PEEP Sodium 139 Potassium 4.0 Chloride 102 Carbon Dioxide 25 Anion Gap 16 BUN 55 H Creatinine 3.2 H Est GFR ( Amer) 18 Est GFR (Non-Af Amer) 15 Random Glucose 120 H Calcium 8.2 L U Random Total Protein Urine Creatinine Urine Microalbumin Microalb/Creat Ratio Complement C3 Complement C4 Assessment & Plan (1) Acute hypoxemic respiratory failure Status: Acute (2) Anemia Status: Acute (3) CAP (community acquired pneumonia) Status: Acute (4) CHF exacerbation Status: Acute (5) Coagulopathy Status: Acute (6) Hematoma Status: Acute (7) Hypotension Status: Acute (8) Influenza A Status: Acute Priority: High (9) Leukocytosis Status: Acute (10) NSTEMI (non-ST elevated myocardial infarction) Status: Acute (11) Pneumonia and influenza Status: Acute Priority: High (12) Renal failure, acute Status: Acute (13) Sepsis Status: Acute (14) History of aortic valve replacement Status: Chronic (15) COPD (chronic obstructive pulmonary disease) Status: Suspected Priority: High (16) Myocardial ischemia Status: Acute - Assessment and Plan (Free Text) Assessment: 58 yo female was admitted to [facility] 10 days ago with acute influnza A and Pneumonia complicated by NSTEMI respiratory failure pneumonia GI bleed and renal failure Recently developed rash on extremities- macular - etiology unclear Doubt measles / varicella but will screen for antibodies and place on droplet precautions Will d/c zithromax All cultures have been negative thus far will repeat septic work up and cont IV antibiotics
[2018-12-06] MEDS ORDERED: Sodium Chloride 3% for Inhalation 4 ML VIAL.NEB IH PRN (14:15)
[2018-12-06] MEDS: Propofol 10 mg/ml 1,000 MG/100 ML VIAL IV SCH (16:11)
[2018-12-06 17:17] LABS: SQUAMOUS EPITHIAL 6 /hpf (0-5); URINE BACTERIA FEW (<OCC); URINE BILIRUBIN NEGATIVE (NEGATIVE); URINE BLOOD MODERATE (NEGATIVE); URINE CLARITY TURBID (Clear); URINE COLOR YELLOW (YELLOW); URINE GLUCOSE (UA) NEG (NEGATIVE); URINE LEUKOCYTE ESTERASE LARGE Leu/uL (Negative); URINE PROTEIN 30 mg/dL (NEGATIVE); URINE UROBILINOGEN 0.2-1.0 mg/dL (0.2-1.0); WBC CLUMPS MANY /hpf
[2018-12-06] MEDS: Aztreonam 1 GM in Sodium Chloride 0.9% 100 ML IVPB SCH (21:12)
[2018-12-06] MEDS: Linezolid 600 mg in D5W 300 ml 600 MG/300 ML BAG IVPB SCH (21:13)
--- NOTE | 2018-12-06 23:21 | CP.PCM.PN ---
Subjective - Date & Time of Evaluation Date of Evaluation: 12/06/18 Time of Evaluation: 18:00 - Subjective Subjective: Patient agitated at times; still intubated; new rash over legs; Objective - Vital Signs/Intake and Output Vital Signs (last 24 hours): Temp Pulse Resp BP Pulse Ox 99.5 F 100 H 18 99/47 L 99 12/06/18 21:17 12/06/18 21:12 12/06/18 18:00 12/06/18 21:12 12/06/18 18:00 Intake and Output: 12/06/18 12/07/18 18:59 06:59 Intake Total 7 Output Total 600 Balance 1427 - Medications Medications: Current Medications Acetaminophen (Tylenol 325mg Tab) 650 mg PO Q6H PRN PRN Reason: Pain (1-10) Last Admin: 12/06/18 21:17 Dose: 650 mg Acetaminophen (Tylenol 325mg Tab) 650 mg PO Q6H PRN PRN Reason: Fever >100.4 F Last Admin: 11/28/18 06:07 Dose: 650 mg Acetaminophen (Tylenol 160mg/5ml Oral Soln) 160 mg PO ONCE PRN PRN Reason: Flu symptoms Albuterol/Ipratropium (Duoneb 3 Mg/0.5 Mg (3 Ml) Ud) 3 ml INH RQ6 [facility] Last Admin: 12/06/18 19:09 Dose: 3 ml Atorvastatin Calcium (Lipitor) 40 mg PO DAILY [facility] Last Admin: 12/06/18 09:29 Dose: 40 mg Dimethicone (Proshield Plus Skin Protectant) 1 applic TOP Q8 [facility] Last Admin: 12/06/18 16:49 Dose: 1 applic Furosemide 100 mg/ Sodium (Chloride) 100 mls @ 10 mls/hr IV .Q10H [facility]; Protocol Last Admin: 12/06/18 09:44 Dose: 10 mls/hr Heparin Sodium/Dextrose (Heparin 25,000 Units/250ml In D5w) 25,000 units in 250 mls @ 18 mls/hr IV .[id number] [facility]; Protocol Aztreonam 1 gm/ Sodium (Chloride) 100 mls @ 100 mls/hr IVPB Q12 [facility]; Protocol Last Admin: 12/06/18 21:12 Dose: 100 mls/hr Linezolid (Zyvox 600mg/300ml D5w) 600 mg in 300 mls @ 300 mls/hr IVPB Q12 [facility]; Protocol Last Admin: 12/06/18 21:13 Dose: 300 mls/hr Metoprolol Tartrate (Lopressor) 12.5 mg PO Q12 [facility] Last Admin: 12/06/18 21:12 Dose: Not Given Morphine Sulfate (Morphine) 4 mg IVP Q4 PRN PRN Reason: Agitation Last Admin: 12/06/18 04:20 Dose: 4 mg Nystatin (Nystop Topical Powder) 1 applic TOP TID [facility] Last Admin: 12/06/18 16:05 Dose: 1 applic - Labs Labs: 12/06/18 06:45 12/06/18 06:45 PT 11.3 Seconds (9.8-13.1) 12/03/18 19:13 INR 1.0 12/03/18 19:13 APTT 40.9 Seconds (25.6-37.1) H 12/06/18 17:21 - Constitutional Appears: Non-toxic, No Acute Distress - Eye Exam Eye Exam: Normal appearance - ENT Exam ENT Exam: Mucous Membranes Moist - Respiratory Exam Respiratory Exam: Wheezes Additional comments: tachpyneic - Cardiovascular Exam Cardiovascular Exam: RRR. absent: Gallop, Rubs - GI/Abdominal Exam GI & Abdominal Exam: Distended, Soft - Extremities Exam Additional comments: edematous upper ext; no signficant leg edema; - Neurological Exam Neurological Exam: Alert, Awake Additional comments: follows commands - Psychiatric Exam Psychiatric exam: absent: Agitated - Skin Skin Exam: Rash, Warm. absent: Cyanosis Additional comments: rash over b/l legs; Assessment and Plan (1) Renal failure, acute Assessment & Plan: Consistent with ATN with direct urine microscopy today showing typical "muddy brown" casts; however, also with packed field of WBC's that is suggestive of possible superimposed AIN; otherwise, non-oliguric renal failure though urine output has dropped off, making ~50 cc/hr on lasix drip; stable electrolyte status and FIO2 requirement; borderline hypotension persists; antibiotic changes by ID noted; -HD being held today to assess for improvement in renal function; -continue lasix drip for now at 10 mg/hr; -agree with repeat urine culture; -avoid nephrotoxic agents; -dose antibiotics for CrCl < 10 ml/min; Status: Acute (2) Acute hypoxemic respiratory failure Status: Acute (3) Anemia Status: Acute (4) Hypotension Status: Acute (5) Sepsis Status: Acute
[2018-12-07] MEDS: Albuterol-Ipratrop 3 mg / 0.5 (3 ml) UD INH SCH ×4 (01:00→19:02)
[2018-12-07] MEDS: Proshield Plus GEL TOP SCH ×3 (01:43→17:56)
[2018-12-07 04:31] LABS: ABG ALLEN TEST YES; ARTERIAL BLOOD GAS HCO3 23.4 mmol/L (21-28); ARTERIAL BLOOD GAS HEMOGLOBIN 8.7 g/dL (11.7-17.4); ARTERIAL BLOOD GAS O2 CAPACITY 11.8 mL/dL (16-24); ARTERIAL BLOOD GAS O2 CONTENT 11.6 ML/dL (15-23); ARTERIAL BLOOD GAS O2 SAT 98.7 % (95-98); ARTERIAL BLOOD GAS PCO2 47 mm/Hg (35-45); ARTERIAL BLOOD GAS PH 7.32 (7.35-7.45); ARTERIAL BLOOD GAS PO2 76 mm/Hg (80-100); ARTERIAL BLOOD GAS TCO2 25.6 mmol/L (22-28)
[2018-12-07] MEDS: Morphine 4 MG/ML VIAL IVP PRN (05:50)
[2018-12-07 05:55] LABS: BASO % 0.3 % (0.0-2.0); EOS # 0.9 K/uL (0.0-0.7); EOS % 5.9 % (0.0-4.0); HEMOGLOBIN 7.8 g/dL (12.0-16.0); LYMPH # 1.7 K/uL (1.0-4.3); LYMPH % 11.6 % (20.0-40.0); MEAN CELL VOLUME 93.9 fl (81.0-99.0); MEAN CORPUSCULAR HEMOGLOBIN 31.6 pg (27.0-31.0); MEAN CORPUSCULAR HGB CONC 33.7 g/dL (33.0-37.0); MEAN PLATELET VOLUME 8.3 fl (7.2-11.7); MONO # 0.9 K/uL (0.0-0.8); MONO % 6.4 % (0.0-10.0); NEUT # 11.3 K/uL (1.8-7.0); NEUT % 75.8 % (50.0-75.0); NRBC % 0.1 % (0.0-0.0); RBC 2.47 Mil/uL (3.80-5.20); RED CELL DISTRIBUTION WIDTH 14.8 % (11.5-14.5); WHITE BLOOD COUNT 14.9 K/uL (4.8-10.8)
[2018-12-07 06:29] LABS: CALCIUM 8.4 mg/dL (8.4-10.2)
[2018-12-07] MEDS: Aztreonam 1 GM in Sodium Chloride 0.9% 100 ML IVPB SCH ×2 (08:17→21:21)
[2018-12-07] MEDS: Furosemide 100 MG in Sodium Chloride 0.9% 100 ML IV SCH ×2 (08:18→18:17)
--- NOTE | 2018-12-07 08:23 | CP.CCUPN ---
CCU Subjective - Physician Review Subjective (Free Text): 12/07/18 08:17 The patient was Seen/interviewed and examined by me at the bedside during ICU round, Medical records reviewed and Management issues were discussed and formulated with the house staff. Events reviewed 58 Years old Female with PMHx of Morbid obesity, AVR (on coumadin), CHF, CAD, HTN and possible COPD who presented to the Emergency department with 2 days of fever (measured up to 103 in ER), cough with clear sputum and SOB, symptoms got significantly worse today. Patient has tried OTC medications with minimal relief, Denies chest pain/pressure. As per chart, on admission the Patient not able to provide much other history g iven her current difficulty breathing. Shortly after admission she was intubated by Anesthesiologist for lethargy and hypercarbia in the presence of new NSTEMI. Patient sedated and orally intubated Patient on ventilator, on PRVC TV 450, RR 10, FIO2 50%, no pressors, opens eyes to verbal stimuli Vent weaning in progress She was placed on CPAP, with PS trial in AM and tolerating so far The plan for possible extubation after HD Afebrile, NSR on the monitor No Vasopressors Pt on IV Zyvox/ Azactam Positive Blood C/S for coagulase negative Staph and Sputum C/S for Yeast Last 24H I&O 3447/1400 Patient on Heparin and Lasix drip CCU Objective - Vital Signs / Intake & Output Vital Signs (Last 4 hours): Vital Signs Temp Pulse Resp BP Pulse Ox 12/07/18 07:56 98.3 F 99 H 15 99/49 L 100 12/07/18 06:00 97 H 17 101/56 L 100 12/07/18 05:00 112 H 16 99/51 L 96 Intake and Output (Last 8hrs): Intake & Output 12/06/18 12/07/18 12/07/18 22:59 06:59 14:59 Intake Total 2047 680 Output Total 50 800 Balance 1996 Weight 261 lb Intake: IV 487 Intake, Piggyback 400 Tube Feeding 560 280 Free Water Flush 600 400 Output: Urine 50 800 Urethral (Olivarez) 50 Urine, Voided 800 Stool 0 Other: # Bowel Movements 1 - Physical Exam Physical Exam Limitations: Positive for: Altered Mental Status, Clinical Condition Head: Positive for: Atraumatic, Normocephalic Pupils: Positive for: PERRL Ears: Positive for: Normal Mouth: Positive for: Moist Mucous Membranes Nose (External): Positive for: Atraumatic Nose (Internal): Positive for: Normal Inspection Neck: Positive for: Normal Range of Motion Respiratory/Chest: Positive for: Rhonchi Cardiovascular: Positive for: Regular Rate and Rhythm Abdomen: Positive for: Normal Bowel Sounds, Other (morbid obesity) Neurological: Positive for: Other (on ventilator) - Medications Active Medications: Active Medications Generic Name Dose Route Start Last Admin Trade Name Freq PRN Reason Stop Dose Admin Acetaminophen 650 mg 11/25/18 22:27 12/06/18 21:17 Tylenol 325mg Tab PO 650 mg Q6H PRN Administration Pain (1-10) Acetaminophen 650 mg 11/25/18 22:27 11/28/18 06:07 Tylenol 325mg Tab PO 650 mg Q6H PRN Administration Fever >100.4 F Acetaminophen 160 mg 12/01/18 10:36 Tylenol 160mg/5ml Oral Soln PO ONCE PRN Flu symptoms Albuterol/Ipratropium 3 ml 12/01/18 14:00 12/07/18 07:25 Duoneb 3 Mg/0.5 Mg (3 Ml) Ud INH 3 ml RQ6 PINKY Administration Atorvastatin Calcium 40 mg 11/26/18 09:00 12/06/18 09:29 Lipitor PO 40 mg DAILY PINKY Administration Dimethicone 1 applic 11/26/18 17:00 12/07/18 01:43 Proshield Plus Skin Protectant TOP 1 applic Q8 PINKY Administration Furosemide 100 mg/ Sodium 100 mls @ 10 mls/hr 12/03/18 11:45 12/06/18 09:44 Chloride IV 10 mls/hr .Q10H PINKY Administration Protocol 10 MG/HR Heparin Sodium/Dextrose 25,000 units in 250 mls @ 18 mls/hr 12/06/18 08:30 Heparin 25,000 Units/250ml In D5w IV .[id number] PINKY Protocol Aztreonam 1 gm/ Sodium 100 mls @ 100 mls/hr 12/06/18 21:00 12/06/18 21:12 Chloride IVPB 100 mls/hr Q12 PINKY Administration Protocol Linezolid 600 mg in 300 mls @ 300 mls/hr 12/06/18 21:00 12/06/18 21:13 Zyvox 600mg/300ml D5w IVPB 300 mls/hr Q12 PINKY Administration Protocol Metoprolol Tartrate 12.5 mg 12/01/18 21:00 12/06/18 21:12 Lopressor PO Not Given Q12 [facility] Morphine Sulfate 4 mg 12/04/18 08:48 12/07/18 05:50 Morphine IVP 4 mg Q4 PRN Administration Agitation Nystatin 1 applic 11/26/18 17:00 12/06/18 16:05 Nystop Topical Powder TOP 1 applic TID PINKY Administration - Patient Studies Lab Studies: Microbiology Studies 12/06/18 16:54 Gram Stain - Final Trachasp 12/02/18 15:59 Blood Culture - Preliminary Blood-Thru Central Line NO GROWTH AFTER 4 DAYS 12/02/18 15:49 Blood Culture - Final Blood-Thru Central Line Coagulase Neg Staphylococcus Gram Stain - Final Lab Studies 12/07/18 12/07/18 12/07/18 Range/Units 05:33 05:33 04:28 WBC 14.9 H (4.8-10.8) K/uL RBC 2.47 L (3.80-5.20) Mil/uL Hgb 7.8 L (12.0-16.0) g/dL Hct 23.2 L (34.0-47.0) % MCV 93.9 (81.0-99.0) fl MCH 31.6 H (27.0-31.0) pg MCHC 33.7 (33.0-37.0) g/dL RDW 14.8 H (11.5-14.5) % Plt Count 335 (130-400) K/uL MPV 8.3 (7.2-11.7) fl Neut % (Auto) 75.8 H (50.0-75.0) % Lymph % (Auto) 11.6 L (20.0-40.0) % [place] % (Auto) 6.4 (0.0-10.0) % Eos % (Auto) 5.9 H (0.0-4.0) % Baso % (Auto) 0.3 (0.0-2.0) % Neut # (Auto) 11.3 H (1.8-7.0) K/uL Lymph # (Auto) 1.7 (1.0-4.3) K/uL [place] # (Auto) 0.9 H (0.0-0.8) K/uL Eos # (Auto) 0.9 H (0.0-0.7) K/uL Baso # (Auto) 0.0 (0.0-0.2) K/uL APTT (25.6-37.1) Seconds pCO2 47 H (35-45) mm/Hg pO2 76 L (80-100) mm/Hg HCO3 23.4 (21-28) mmol/L ABG pH 7.32 L (7.35-7.45) ABG Total CO2 25.6 (22-28) mmol/L ABG O2 Saturation 98.7 H (95-98) % ABG O2 Content 11.6 L (15-23) ML/dL ABG Base Excess -1.9 (-2.0-3.0) mmol/L ABG Hemoglobin 8.7 L (11.7-17.4) g/dL ABG Carboxyhemoglobin 3.4 H (0.5-1.5) % POC ABG HHb (Measured) 1.2 (0.0-5.0) % ABG Methemoglobin 1.4 (0.0-3.0) % ABG O2 Capacity 11.8 L (16-24) mL/dL Juanito Test Yes A-a O2 Difference 150.0 mm/Hg Hgb O2 Saturation 94.0 L (95.0-98.0) % Vent Mode A/c Mechanical Rate 10 FiO2 40.0 % Tidal Volume 450 PEEP 5 Sodium 138 (132-148) mmol/l Potassium 4.0 (3.6-5.0) MMOL/L Chloride 99 (98-107) mmol/L Carbon Dioxide 26 (22-30) mmol/L Anion Gap 17 (10-20) BUN 73 H (7-17) mg/dl Creatinine 3.9 H (0.7-1.2) mg/dl Est GFR ( Amer) 14 Est GFR (Non-Af Amer) 12 Random Glucose 121 H (65-105) mg/dL Calcium 8.4 (8.4-10.2) mg/dL Procalcitonin (0.19-0.49) NG/ML Urine Color (YELLOW) Urine Clarity (Clear) Urine pH (5.0-8.0) Ur Specific [place] (1.003-1.030) Urine Protein (NEGATIVE) mg/dL Urine Glucose (UA) (NEGATIVE) mg/dL Urine Ketones (NEGATIVE) mg/dL Urine Blood (NEGATIVE) Urine Nitrate (NEGATIVE) Urine Bilirubin (NEGATIVE) Urine Urobilinogen (0.2-1.0) mg/dL Ur Leukocyte Esterase (Negative) Susan/uL Urine RBC (Auto) (0-3) /hpf Urine WBC Clumps (Auto) (NONE) /hpf Urine Microscopic WBC (0-5) /hpf Ur Squamous Epith Cells (0-5) /hpf Urine Bacteria (<OCC) Urine Yeast (Budding) (NEGATIVE) /hpf Urine Creatinine (20-275) mg/dL Urine Microalbumin mg/dL Microalb/Creat Ratio (<30) 12/07/18 12/06/18 12/06/18 Range/Units 01:00 17:21 16:41 WBC (4.8-10.8) K/uL RBC (3.80-5.20) Mil/uL Hgb (12.0-16.0) g/dL Hct (34.0-47.0) % MCV (81.0-99.0) fl MCH (27.0-31.0) pg MCHC (33.0-37.0) g/dL RDW (11.5-14.5) % Plt Count (130-400) K/uL MPV (7.2-11.7) fl Neut % (Auto) (50.0-75.0) % Lymph % (Auto) (20.0-40.0) % [place] % (Auto) (0.0-10.0) % Eos % (Auto) (0.0-4.0) % Baso % (Auto) (0.0-2.0) % Neut # (Auto) (1.8-7.0) K/uL Lymph # (Auto) (1.0-4.3) K/uL [place] # (Auto) (0.0-0.8) K/uL Eos # (Auto) (0.0-0.7) K/uL Baso # (Auto) (0.0-0.2) K/uL APTT 43.9 H 40.9 H (25.6-37.1) Seconds pCO2 (35-45) mm/Hg pO2 (80-100) mm/Hg HCO3 (21-28) mmol/L ABG pH (7.35-7.45) ABG Total CO2 (22-28) mmol/L ABG O2 Saturation (95-98) % ABG O2 Content (15-23) ML/dL ABG Base Excess (-2.0-3.0) mmol/L ABG Hemoglobin (11.7-17.4) g/dL ABG Carboxyhemoglobin (0.5-1.5) % POC ABG HHb (Measured) (0.0-5.0) % ABG Methemoglobin (0.0-3.0) % ABG O2 Capacity (16-24) mL/dL Juanito Test A-a O2 Difference mm/Hg Hgb O2 Saturation (95.0-98.0) % Vent Mode Mechanical Rate FiO2 % Tidal Volume PEEP Sodium (132-148) mmol/l Potassium (3.6-5.0) MMOL/L Chloride (98-107) mmol/L Carbon Dioxide (22-30) mmol/L Anion Gap (10-20) BUN (7-17) mg/dl Creatinine (0.7-1.2) mg/dl Est GFR ( Amer) Est GFR (Non-Af Amer) Random Glucose (65-105) mg/dL Calcium (8.4-10.2) mg/dL Procalcitonin (0.19-0.49) NG/ML Urine Color Yellow (YELLOW) Urine Clarity Turbid (Clear) Urine pH 5.0 (5.0-8.0) Ur Specific [place] 1.009 (1.003-1.030) Urine Protein 30 (NEGATIVE) mg/dL Urine Glucose (UA) Neg (NEGATIVE) mg/dL Urine Ketones Negative (NEGATIVE) mg/dL Urine Blood Moderate (NEGATIVE) Urine Nitrate Negative (NEGATIVE) Urine Bilirubin Negative (NEGATIVE) Urine Urobilinogen 0.2-1.0 (0.2-1.0) mg/dL Ur Leukocyte Esterase Large (Negative) Susan/uL Urine RBC (Auto) 108 H (0-3) /hpf Urine WBC Clumps (Auto) Many H (NONE) /hpf Urine Microscopic WBC 1009 H (0-5) /hpf Ur Squamous Epith Cells 6 H (0-5) /hpf Urine Bacteria Few H (<OCC) Urine Yeast (Budding) Many H (NEGATIVE) /hpf Urine Creatinine (20-275) mg/dL Urine Microalbumin mg/dL Microalb/Creat Ratio (<30) 12/06/18 12/06/18 12/04/18 Range/Units 16:40 01:25 02:40 WBC (4.8-10.8) K/uL RBC (3.80-5.20) Mil/uL Hgb (12.0-16.0) g/dL Hct (34.0-47.0) % MCV (81.0-99.0) fl MCH (27.0-31.0) pg MCHC (33.0-37.0) g/dL RDW (11.5-14.5) % Plt Count (130-400) K/uL MPV (7.2-11.7) fl Neut % (Auto) (50.0-75.0) % Lymph % (Auto) (20.0-40.0) % [place] % (Auto) (0.0-10.0) % Eos % (Auto) (0.0-4.0) % Baso % (Auto) (0.0-2.0) % Neut # (Auto) (1.8-7.0) K/uL Lymph # (Auto) (1.0-4.3) K/uL [place] # (Auto) (0.0-0.8) K/uL Eos # (Auto) (0.0-0.7) K/uL Baso # (Auto) (0.0-0.2) K/uL APTT 27.3 (25.6-37.1) Seconds pCO2 (35-45) mm/Hg pO2 (80-100) mm/Hg HCO3 (21-28) mmol/L ABG pH (7.35-7.45) ABG Total CO2 (22-28) mmol/L ABG O2 Saturation (95-98) % ABG O2 Content (15-23) ML/dL ABG Base Excess (-2.0-3.0) mmol/L ABG Hemoglobin (11.7-17.4) g/dL ABG Carboxyhemoglobin (0.5-1.5) % POC ABG HHb (Measured) (0.0-5.0) % ABG Methemoglobin (0.0-3.0) % ABG O2 Capacity (16-24) mL/dL Juanito Test A-a O2 Difference mm/Hg Hgb O2 Saturation (95.0-98.0) % Vent Mode Mechanical Rate FiO2 % Tidal Volume PEEP Sodium (132-148) mmol/l Potassium (3.6-5.0) MMOL/L Chloride (98-107) mmol/L Carbon Dioxide (22-30) mmol/L Anion Gap (10-20) BUN (7-17) mg/dl Creatinine (0.7-1.2) mg/dl Est GFR ( Amer) Est GFR (Non-Af Amer) Random Glucose (65-105) mg/dL Calcium (8.4-10.2) mg/dL Procalcitonin 0.63 H (0.19-0.49) NG/ML Urine Color (YELLOW) Urine Clarity (Clear) Urine pH (5.0-8.0) Ur Specific [place] (1.003-1.030) Urine Protein (NEGATIVE) mg/dL Urine Glucose (UA) (NEGATIVE) mg/dL Urine Ketones (NEGATIVE) mg/dL Urine Blood (NEGATIVE) Urine Nitrate (NEGATIVE) Urine Bilirubin (NEGATIVE) Urine Urobilinogen (0.2-1.0) mg/dL Ur Leukocyte Esterase (Negative) Susan/uL Urine RBC (Auto) (0-3) /hpf Urine WBC Clumps (Auto) (NONE) /hpf Urine Microscopic WBC (0-5) /hpf Ur Squamous Epith Cells (0-5) /hpf Urine Bacteria (<OCC) Urine Yeast (Budding) (NEGATIVE) /hpf Urine Creatinine 28 (20-275) mg/dL Urine Microalbumin 3.0 mg/dL Microalb/Creat Ratio 106 H (<30) Laboratory Results - last 24 hr 12/04/18 12/06/18 12/06/18 02:40 01:25 16:40 WBC RBC Hgb Hct MCV MCH MCHC RDW Plt Count MPV Neut % (Auto) Lymph % (Auto) [place] % (Auto) Eos % (Auto) Baso % (Auto) Neut # (Auto) Lymph # (Auto) [place] # (Auto) Eos # (Auto) Baso # (Auto) APTT 27.3 pCO2 pO2 HCO3 ABG pH ABG Total CO2 ABG O2 Saturation ABG O2 Content ABG Base Excess ABG Hemoglobin ABG Carboxyhemoglobin POC ABG HHb (Measured) ABG Methemoglobin ABG O2 Capacity Juanito Test A-a O2 Difference Hgb O2 Saturation Vent Mode Mechanical Rate FiO2 Tidal Volume PEEP Sodium Potassium Chloride Carbon Dioxide Anion Gap BUN Creatinine Est GFR ( Amer) Est GFR (Non-Af Amer) Random Glucose Calcium Procalcitonin 0.63 H Urine Color Urine Clarity Urine pH Ur Specific [place] Urine Protein Urine Glucose (UA) Urine Ketones Urine Blood Urine Nitrate Urine Bilirubin Urine Urobilinogen Ur Leukocyte Esterase Urine RBC (Auto) Urine WBC Clumps (Auto) Urine Microscopic WBC Ur Squamous Epith Cells Urine Bacteria Urine Yeast (Budding) Urine Creatinine 28 Urine Microalbumin 3.0 Microalb/Creat Ratio 106 H 12/06/18 12/06/18 12/07/18 16:41 17:21 01:00 WBC RBC Hgb Hct MCV MCH MCHC RDW Plt Count MPV Neut % (Auto) Lymph % (Auto) [place] % (Auto) Eos % (Auto) Baso % (Auto) Neut # (Auto) Lymph # (Auto) [place] # (Auto) Eos # (Auto) Baso # (Auto) APTT 40.9 H 43.9 H pCO2 pO2 HCO3 ABG pH ABG Total CO2 ABG O2 Saturation ABG O2 Content ABG Base Excess ABG Hemoglobin ABG Carboxyhemoglobin POC ABG HHb (Measured) ABG Methemoglobin ABG O2 Capacity Juanito Test A-a O2 Difference Hgb O2 Saturation Vent Mode Mechanical Rate FiO2 Tidal Volume PEEP Sodium Potassium Chloride Carbon Dioxide Anion Gap BUN Creatinine Est GFR ( Amer) Est GFR (Non-Af Amer) Random Glucose Calcium Procalcitonin Urine Color Yellow Urine Clarity Turbid Urine pH 5.0 Ur Specific [place] 1.009 Urine Protein 30 Urine Glucose (UA) Neg Urine Ketones Negative Urine Blood Moderate Urine Nitrate Negative Urine Bilirubin Negative Urine Urobilinogen 0.2-1.0 Ur Leukocyte Esterase Large Urine RBC (Auto) 108 H Urine WBC Clumps (Auto) Many H Urine Microscopic WBC 1009 H Ur Squamous Epith Cells 6 H Urine Bacteria Few H Urine Yeast (Budding) Many H Urine Creatinine Urine Microalbumin Microalb/Creat Ratio 12/07/18 12/07/18 12/07/18 04:28 05:33 05:33 WBC 14.9 H RBC 2.47 L Hgb 7.8 L Hct 23.2 L MCV 93.9 MCH 31.6 H MCHC 33.7 RDW 14.8 H Plt Count 335 MPV 8.3 Neut % (Auto) 75.8 H Lymph % (Auto) 11.6 L [place] % (Auto) 6.4 Eos % (Auto) 5.9 H Baso % (Auto) 0.3 Neut # (Auto) 11.3 H Lymph # (Auto) 1.7 [place] # (Auto) 0.9 H Eos # (Auto) 0.9 H Baso # (Auto) 0.0 APTT pCO2 47 H pO2 76 L HCO3 23.4 ABG pH 7.32 L ABG Total CO2 25.6 ABG O2 Saturation 98.7 H ABG O2 Content 11.6 L ABG Base Excess -1.9 ABG Hemoglobin 8.7 L ABG Carboxyhemoglobin 3.4 H POC ABG HHb (Measured) 1.2 ABG Methemoglobin 1.4 ABG O2 Capacity 11.8 L Juanito Test Yes A-a O2 Difference 150.0 Hgb O2 Saturation 94.0 L Vent Mode A/c Mechanical Rate 10 FiO2 40.0 Tidal Volume 450 PEEP 5 Sodium 138 Potassium 4.0 Chloride 99 Carbon Dioxide 26 Anion Gap 17 BUN 73 H Creatinine 3.9 H Est GFR ( Amer) 14 Est GFR (Non-Af Amer) 12 Random Glucose 121 H Calcium 8.4 Procalcitonin Urine Color Urine Clarity Urine pH Ur Specific [place] Urine Protein Urine Glucose (UA) Urine Ketones Urine Blood Urine Nitrate Urine Bilirubin Urine Urobilinogen Ur Leukocyte Esterase Urine RBC (Auto) Urine WBC Clumps (Auto) Urine Microscopic WBC Ur Squamous Epith Cells Urine Bacteria Urine Yeast (Budding) Urine Creatinine Urine Microalbumin Microalb/Creat Ratio Radiology Impressions: Radiology Impressions Chest X-Ray 12/06/18 05:00 IMPRESSION: Stable tubes and lines. Stable pulmonary vascular congestion. Stable right midlung patchy infiltrate. No significant interval change. Review of Systems - Review of Systems Systems not reviewed;Unavailable: Intubated Critical Care Progress Note - Ventilator Checklist Head of Bed 30 Degrees: Yes Daily Sedation Vacation: Yes Daily Assessment of Readiness to Wean: Yes Daily Spontaneous Breathing Trial: Yes PUD Prophalyxis: Yes DVT Prophylaxis: Yes Oral Care with Chlorhexidine Gluconate {CHG}: Yes Assessment/Plan (1) Acute hypoxemic respiratory failure Current Visit: Yes Status: Acute Priority: High (2) Acute pulmonary edema Current Visit: Yes Status: Acute Priority: High (3) NSTEMI (non-ST elevated myocardial infarction) Current Visit: Yes Status: Acute Priority: High (4) Morbid obesity Current Visit: Yes Status: Acute Priority: High (5) Anemia Current Visit: Yes Status: Acute Priority: High (6) CAP (community acquired pneumonia) Current Visit: Yes Status: Acute Priority: High (7) CHF exacerbation Current Visit: Yes Status: Acute Priority: High - Assessment and Plan (Free Text) Assessment: Continue with ICU care for hemodynamic and Respiratory monitoring Wean off FIO2 Vent weaning in progress She was placed on CPAP, with PS trial in AM and tolerating so far The plan for possible extubation after HD Aggressive pulmonary toilet, chest PT, suctioning Maintain aspiration precautions Continue Antibiotics Continue IV Zyvox and Azactam Continue nebulizer treatment Pulmonary & ID consult appreciated Optimize fluid status Patient on Heparin and Lasix drip # HOB maintained at 30 degrees. # GI/DVT PPX # Stress Ulcer prophylaxis with Pantoprazole 40 mg IVP Q12 # DVT prophylaxis with SCD, Heparin drip # Code Status: Full code Total critical care time 42 minutes
[2018-12-07] MEDS: Linezolid 600 mg in D5W 300 ml 600 MG/300 ML BAG IVPB SCH ×2 (08:40→21:23)
--- NOTE | 2018-12-07 08:48 | CP.PCM.PN ---
<Hebert Alberto - Last Filed: 12/07/18 14:10> Subjective - Date & Time of Evaluation Date of Evaluation: 12/07/18 Time of Evaluation: 08:00 - Subjective Subjective: Patient seen and examined at bedside on [facility]. Patient more alert and responsive with EOMI. No acute events overnight Objective - Vital Signs/Intake and Output Vital Signs (last 24 hours): Temp Pulse Resp BP Pulse Ox 98.3 F 136 H 15 124/60 100 12/07/18 07:56 12/07/18 08:19 12/07/18 07:56 12/07/18 08:19 12/07/18 07:56 Intake and Output: 12/07/18 12/07/18 06:59 18:59 Intake Total 1420 Output Total 800 Balance 620 - Medications Medications: Current Medications Acetaminophen (Tylenol 325mg Tab) 650 mg PO Q6H PRN PRN Reason: Pain (1-10) Last Admin: 12/06/18 21:17 Dose: 650 mg Acetaminophen (Tylenol 325mg Tab) 650 mg PO Q6H PRN PRN Reason: Fever >100.4 F Last Admin: 11/28/18 06:07 Dose: 650 mg Acetaminophen (Tylenol 160mg/5ml Oral Soln) 160 mg PO ONCE PRN PRN Reason: Flu symptoms Albuterol/Ipratropium (Duoneb 3 Mg/0.5 Mg (3 Ml) Ud) 3 ml INH RQ6 PINKY Last Admin: 12/07/18 07:25 Dose: 3 ml Atorvastatin Calcium (Lipitor) 40 mg PO DAILY PINKY Last Admin: 12/07/18 08:19 Dose: 40 mg Dimethicone (Proshield Plus Skin Protectant) 1 applic TOP Q8 PINKY Last Admin: 12/07/18 08:24 Dose: 1 applic Furosemide 100 mg/ Sodium (Chloride) 100 mls @ 10 mls/hr IV .Q10H PINKY; Protocol Last Admin: 12/07/18 08:18 Dose: 10 mls/hr Heparin Sodium/Dextrose (Heparin 25,000 Units/250ml In D5w) 25,000 units in 250 mls @ 18 mls/hr IV .[id number] PINKY; Protocol Aztreonam 1 gm/ Sodium (Chloride) 100 mls @ 100 mls/hr IVPB Q12 PINKY; Protocol Last Admin: 12/07/18 08:17 Dose: 100 mls/hr Linezolid (Zyvox 600mg/300ml D5w) 600 mg in 300 mls @ 300 mls/hr IVPB Q12 PINKY; Protocol Last Admin: 12/07/18 08:40 Dose: 300 mls/hr Metoprolol Tartrate (Lopressor) 12.5 mg PO Q12 PINKY Last Admin: 12/07/18 08:19 Dose: 12.5 mg Morphine Sulfate (Morphine) 4 mg IVP Q4 PRN PRN Reason: Agitation Last Admin: 12/07/18 05:50 Dose: 4 mg Nystatin (Nystop Topical Powder) 1 applic TOP TID PINKY Last Admin: 12/07/18 08:24 Dose: 1 applic - Labs Labs: 12/07/18 05:33 12/07/18 05:33 PT 11.3 Seconds (9.8-13.1) 12/03/18 19:13 INR 1.0 12/03/18 19:13 APTT 43.9 Seconds (25.6-37.1) H 12/07/18 01:00 - Constitutional Appears: Other (on MV) - Eye Exam Eye Exam: EOMI - Respiratory Exam Respiratory Exam: Wheezes (Mild expiratory; however, appropriate air exchange) - Cardiovascular Exam Cardiovascular Exam: REGULAR RHYTHM, +S1, +S2 - GI/Abdominal Exam GI & Abdominal Exam: Normal Bowel Sounds - Neurological Exam Neurological Exam: Awake - Skin Skin Exam: Rash Assessment and Plan (1) Respiratory failure with hypoxia and hypercapnia Status: Acute (2) Influenza A Status: Acute (3) Pneumonia and influenza Status: Acute (4) Morbid obesity Status: Chronic (5) COPD (chronic obstructive pulmonary disease) Status: Suspected - Assessment and Plan (Free Text) Assessment: 58 yo F with pmhx of HTN, COPD, hx of aortic valve replacement and morbid obesity admitted for respiratory failure with hypoxia and hypercapnia, Influenza A, Pneumonia Plan: Labs, imaging, and team reports reviewed PRVC changed to CPAP +PS: 15/FiO2:40%/PEEP:5 Continue Droplet precautions until results for Ab testing is r/o s/p 5 day course of tamiflu Continue: Duoneb, Aztreonam, Linezolid Pt s/p ultrafiltration: third spacing and urinary output improved f/u: Varicella zoster Ab, Urine eosinophils (r/o: legionella); sputum cx future planning: to wean off ventilation if patient tolerates CPAP +PS Case and plan d/w Dr. Snow Alberto MD PGY-2 <Froylan Adamson - Last Filed: 12/07/18 14:32> Subjective - Subjective Subjective: Patient was seen together with the resident on morning rounds in the intensive care unit. All interim events including EMR entries, labs and x-rays were reviewed. Physical findings were discussed and a plan of care formulated. Weaning parameters were discussed with the resident in the patient was placed on CPAP/pressure support of 5 cm/14 cm. Pressure support was subsequently reduced further to 10 cm. Patient appeared to tolerate this current ventilatory mode. Hemodialysis is planned for later today and further weaning will be suspended for now. Patient will remain on these current settings if well tolerated overnight and hopefully extubation can take place early in the morning tomorrow. Objective - Vital Signs/Intake and Output Vital Signs (last 24 hours): Temp Pulse Resp BP Pulse Ox 98.1 F 94 H 15 120/62 97 12/07/18 12:05 12/07/18 13:00 12/07/18 13:00 12/07/18 13:00 12/07/18 13:00 Intake and Output: 12/07/18 12/07/18 11:59 23:59 Intake Total 1239 278 Output Total 800 Balance 439 278 - Medications Medications: Current Medications Acetaminophen (Tylenol 325mg Tab) 650 mg PO Q6H PRN PRN Reason: Pain (1-10) Last Admin: 12/06/18 21:17 Dose: 650 mg Acetaminophen (Tylenol 325mg Tab) 650 mg PO Q6H PRN PRN Reason: Fever >100.4 F Last Admin: 11/28/18 06:07 Dose: 650 mg Acetaminophen (Tylenol 160mg/5ml Oral Soln) 160 mg PO ONCE PRN PRN Reason: Flu symptoms Albuterol/Ipratropium (Duoneb 3 Mg/0.5 Mg (3 Ml) Ud) 3 ml INH RQ6 PINKY Last Admin: 12/07/18 13:06 Dose: 3 ml Atorvastatin Calcium (Lipitor) 40 mg PO DAILY PINKY Last Admin: 12/07/18 08:19 Dose: 40 mg Dimethicone (Proshield Plus Skin Protectant) 1 applic TOP Q8 PINKY Last Admin: 12/07/18 08:24 Dose: 1 applic Furosemide 100 mg/ Sodium (Chloride) 100 mls @ 10 mls/hr IV .Q10H [facility]; Protocol Last Admin: 12/07/18 08:18 Dose: 10 mls/hr Aztreonam 1 gm/ Sodium (Chloride) 100 mls @ 100 mls/hr IVPB Q12 PINKY; Protocol Last Admin: 12/07/18 08:17 Dose: 100 mls/hr Linezolid (Zyvox 600mg/300ml D5w) 600 mg in 300 mls @ 300 mls/hr IVPB Q12 [facility]; Protocol Last Admin: 12/07/18 08:40 Dose: 300 mls/hr Propofol (Diprivan) 1,000 mg in 100 mls @ 11.859 mls/hr IV .Q8H26M [facility]; Protocol Stop: 12/08/18 10:04 Last Admin: 12/07/18 13:08 Dose: Not Given Metoprolol Tartrate (Lopressor) 12.5 mg PO Q12 [facility] Last Admin: 12/07/18 08:19 Dose: 12.5 mg Morphine Sulfate (Morphine) 4 mg IVP Q4 PRN PRN Reason: Agitation Last Admin: 12/07/18 05:50 Dose: 4 mg Nystatin (Nystop Topical Powder) 1 applic TOP TID [facility] Last Admin: 12/07/18 08:24 Dose: 1 applic Pantoprazole Sodium (Protonix Inj) 40 mg IVP Q12 [facility] Last Admin: 12/07/18 12:32 Dose: 40 mg - Labs Labs: 12/07/18 05:33 12/07/18 05:33 PT 11.3 Seconds (9.8-13.1) 12/03/18 19:13 INR 1.0 12/03/18 19:13 APTT 43.9 Seconds (25.6-37.1) H 12/07/18 01:00 Assessment and Plan (1) Respiratory failure with hypoxia and hypercapnia Status: Acute (2) Influenza A Status: Acute (3) Pneumonia and influenza Status: Acute (4) Morbid obesity Status: Chronic (5) COPD (chronic obstructive pulmonary disease) Status: Suspected
[2018-12-07 10:29] LABS: ALB/GLOB RATIO 0.7 (1.0-2.1); ALBUMIN 2.9 g/dL (3.5-5.0); BILIRUBIN,DIRECT 0.5 mg/ml (0.0-0.4)
--- NOTE | 2018-12-07 11:37 | RAD ---
Date of service: 12/07/2018 HISTORY: Patient Intubated COMPARISON: 12/06/2018 FINDINGS: LUNGS: Linear scar/atelectasis adjacent to left hilum unchanged from prior examination. No acute infiltrate. PLEURA: No significant pleural effusion identified, no pneumothorax apparent. CARDIOVASCULAR: No aortic atherosclerotic calcification present. Normal cardiac size. No congestive change. ET tube, NG tube and tunneled left central venous dialysis catheter are again noted unchanged. Sternotomy wires. Right PICC catheter unchanged in position. OSSEOUS STRUCTURES: No significant abnormalities. VISUALIZED UPPER ABDOMEN: Normal. OTHER FINDINGS: None. IMPRESSION: No acute infiltrate. Lines and tubes unchanged.
[2018-12-07] MEDS: Propofol 10 mg/ml 1,000 MG/100 ML VIAL IV SCH ×3 (13:08→21:21)
--- NOTE | 2018-12-07 14:09 | CP.PCM.PN ---
Subjective - Date & Time of Evaluation Date of Evaluation: 12/07/18 Time of Evaluation: 08:00 - Subjective Subjective: 58 yo female was admitted to [facility] 10 days ago with acute influnza A and Pneumonia complicated by NSTEMI respiratory failure pneumonia GI bleed and renal failure Recently developed rash on extremities- macular - etiology unclear All cultures have been negative thus far started Zyvox/ Azactam after cultures Objective - Vital Signs/Intake and Output Vital Signs (last 24 hours): Temp Pulse Resp BP Pulse Ox 98.1 F 94 H 15 120/62 97 12/07/18 12:05 12/07/18 13:00 12/07/18 13:00 12/07/18 13:00 12/07/18 13:00 Intake and Output: 12/07/18 12/07/18 06:59 18:59 Intake Total 1420 837 Output Total 800 Balance 620 837 - Medications Medications: Current Medications Acetaminophen (Tylenol 325mg Tab) 650 mg PO Q6H PRN PRN Reason: Pain (1-10) Last Admin: 12/06/18 21:17 Dose: 650 mg Acetaminophen (Tylenol 325mg Tab) 650 mg PO Q6H PRN PRN Reason: Fever >100.4 F Last Admin: 11/28/18 06:07 Dose: 650 mg Acetaminophen (Tylenol 160mg/5ml Oral Soln) 160 mg PO ONCE PRN PRN Reason: Flu symptoms Albuterol/Ipratropium (Duoneb 3 Mg/0.5 Mg (3 Ml) Ud) 3 ml INH RQ6 [facility] Last Admin: 12/07/18 13:06 Dose: 3 ml Atorvastatin Calcium (Lipitor) 40 mg PO DAILY [facility] Last Admin: 12/07/18 08:19 Dose: 40 mg Dimethicone (Proshield Plus Skin Protectant) 1 applic TOP Q8 [facility] Last Admin: 12/07/18 08:24 Dose: 1 applic Furosemide 100 mg/ Sodium (Chloride) 100 mls @ 10 mls/hr IV .Q10H [facility]; Protocol Last Admin: 12/07/18 08:18 Dose: 10 mls/hr Aztreonam 1 gm/ Sodium (Chloride) 100 mls @ 100 mls/hr IVPB Q12 [facility]; Protocol Last Admin: 12/07/18 08:17 Dose: 100 mls/hr Linezolid (Zyvox 600mg/300ml D5w) 600 mg in 300 mls @ 300 mls/hr IVPB Q12 [facility]; Protocol Last Admin: 12/07/18 08:40 Dose: 300 mls/hr Propofol (Diprivan) 1,000 mg in 100 mls @ 11.859 mls/hr IV .Q8H26M [facility]; Protocol Stop: 12/08/18 10:04 Last Admin: 12/07/18 13:08 Dose: Not Given Metoprolol Tartrate (Lopressor) 12.5 mg PO Q12 [facility] Last Admin: 12/07/18 08:19 Dose: 12.5 mg Morphine Sulfate (Morphine) 4 mg IVP Q4 PRN PRN Reason: Agitation Last Admin: 12/07/18 05:50 Dose: 4 mg Nystatin (Nystop Topical Powder) 1 applic TOP TID [facility] Last Admin: 12/07/18 08:24 Dose: 1 applic Pantoprazole Sodium (Protonix Inj) 40 mg IVP Q12 [facility] Last Admin: 12/07/18 12:32 Dose: 40 mg - Labs Labs: 12/07/18 05:33 12/07/18 05:33 PT 11.3 Seconds (9.8-13.1) 12/03/18 19:13 INR 1.0 12/03/18 19:13 APTT 43.9 Seconds (25.6-37.1) H 12/07/18 01:00 - Constitutional Appears: Non-toxic, Confused - Head Exam Head Exam: NORMOCEPHALIC - Eye Exam Eye Exam: EOMI, PERRL - ENT Exam ENT Exam: Mucous Membranes Dry - Neck Exam Neck Exam: absent: Lymphadenopathy - Respiratory Exam Respiratory Exam: Decreased Breath Sounds - Cardiovascular Exam Cardiovascular Exam: REGULAR RHYTHM - GI/Abdominal Exam GI & Abdominal Exam: Distended, Soft - Rectal Exam Rectal Exam: Deferred - Exam Exam: NORMAL INSPECTION - Extremities Exam Extremities Exam: Pedal Edema - Back Exam Back Exam: absent: CVA tenderness (L), CVA tenderness (R) - Neurological Exam Neurological Exam: Altered - Psychiatric Exam Psychiatric exam: Depressed - Skin Skin Exam: Dry Assessment and Plan (1) Acute hypoxemic respiratory failure Status: Acute (2) Anemia Status: Acute (3) CAP (community acquired pneumonia) Status: Acute (4) CHF exacerbation Status: Acute (5) Coagulopathy Status: Acute (6) Hematoma Status: Acute (7) Hypotension Status: Acute (8) Influenza A Status: Acute (9) Leukocytosis Status: Acute (10) NSTEMI (non-ST elevated myocardial infarction) Status: Acute (11) Pneumonia and influenza Status: Acute (12) Renal failure, acute Status: Acute (13) Sepsis Status: Acute (14) History of aortic valve replacement Status: Chronic (15) COPD (chronic obstructive pulmonary disease) Status: Suspected (16) Myocardial ischemia Status: Acute - Assessment and Plan (Free Text) Assessment: 58 yo female was admitted to [facility] 10 days ago with acute influnza A and Pneumonia complicated by NSTEMI respiratory failure pneumonia GI bleed and renal failure Recently developed rash on extremities- macular - etiology unclear Doubt measles / varicella Will d/c zithromax All cultures have been negative thus far started Zyvox/ Azactam after cultures
--- NOTE | 2018-12-07 14:10 | CP.PCM.PCO ---
Physician Communication Note - Physician Communication Note Physician Communication Note: MMR titers Positive for immunity
[2018-12-07] MEDS: Heparin 25,000units in D5W 25,000 UNITS/250 ML BAG IV SCH ×2 (15:44→16:05)
--- NOTE | 2018-12-07 17:20 | CP.PCM.PN ---
<Celetsine Calhoun - Last Filed: 12/07/18 22:31> Subjective - Date & Time of Evaluation Date of Evaluation: 12/07/18 Time of Evaluation: 21:20 - Subjective Subjective: Celestine Calhoun DO PGY1 - Internal Medicine [employer] - Cardiology Note for Dr. Sutton Seen and examined at bedside this morning. No acute events overnight. Patient continues to be intubated sedated. WOLFGANG testing on Friday showed good mitral valve function, and good EF. Objective - Vital Signs/Intake and Output Vital Signs (last 24 hours): Temp Pulse Resp BP Pulse Ox 97.1 F L 95 H 17 104/51 L 97 12/07/18 16:00 12/07/18 16:00 12/07/18 16:00 12/07/18 16:00 12/07/18 16:00 Intake and Output: 12/07/18 12/07/18 06:59 18:59 Intake Total 1420 929 Output Total 800 Balance 620 929 - Medications Medications: Current Medications Acetaminophen (Tylenol 325mg Tab) 650 mg PO Q6H PRN PRN Reason: Pain (1-10) Last Admin: 12/06/18 21:17 Dose: 650 mg Acetaminophen (Tylenol 325mg Tab) 650 mg PO Q6H PRN PRN Reason: Fever >100.4 F Last Admin: 11/28/18 06:07 Dose: 650 mg Acetaminophen (Tylenol 160mg/5ml Oral Soln) 160 mg PO ONCE PRN PRN Reason: Flu symptoms Albuterol/Ipratropium (Duoneb 3 Mg/0.5 Mg (3 Ml) Ud) 3 ml INH RQ6 [facility] Last Admin: 12/07/18 13:06 Dose: 3 ml Atorvastatin Calcium (Lipitor) 40 mg PO DAILY [facility] Last Admin: 12/07/18 08:19 Dose: 40 mg Dimethicone (Proshield Plus Skin Protectant) 1 applic TOP Q8 [facility] Last Admin: 12/07/18 08:24 Dose: 1 applic Furosemide 100 mg/ Sodium (Chloride) 100 mls @ 10 mls/hr IV .Q10H [facility]; Protocol Last Admin: 12/07/18 08:18 Dose: 10 mls/hr Aztreonam 1 gm/ Sodium (Chloride) 100 mls @ 100 mls/hr IVPB Q12 [facility]; Protocol Last Admin: 12/07/18 08:17 Dose: 100 mls/hr Linezolid (Zyvox 600mg/300ml D5w) 600 mg in 300 mls @ 300 mls/hr IVPB Q12 REPLACED BY [facility]; Protocol Last Admin: 12/07/18 08:40 Dose: 300 mls/hr Propofol (Diprivan) 1,000 mg in 100 mls @ 11.859 mls/hr IV .Q8H26M REPLACED BY [facility]; Protocol Stop: 12/08/18 10:04 Last Titration: 12/07/18 17:10 Dose: 20 mcg/kg/min, 15.812 mls/hr Heparin Sodium/Dextrose (Heparin 25,000 Units/250ml In D5w) 25,000 units in 250 mls @ 18 mls/hr IV .[id number] REPLACED BY [facility]; Protocol Stop: 12/08/18 18:59 Last Admin: 12/07/18 16:05 Dose: 18 mls/hr Metoprolol Tartrate (Lopressor) 12.5 mg PO Q12 REPLACED BY [facility] Last Admin: 12/07/18 08:19 Dose: 12.5 mg Morphine Sulfate (Morphine) 4 mg IVP Q4 PRN PRN Reason: Agitation Last Admin: 12/07/18 05:50 Dose: 4 mg Nystatin (Nystop Topical Powder) 1 applic TOP TID REPLACED BY [facility] Last Admin: 12/07/18 16:10 Dose: Not Given Pantoprazole Sodium (Protonix Inj) 40 mg IVP Q12 REPLACED BY [facility] Last Admin: 12/07/18 12:32 Dose: 40 mg - Labs Labs: 12/07/18 05:33 12/07/18 05:33 PT 11.3 Seconds (9.8-13.1) 12/03/18 19:13 INR 1.0 12/03/18 19:13 APTT 43.9 Seconds (25.6-37.1) H 12/07/18 01:00 - Constitutional Appears: Non-toxic, No Acute Distress - Head Exam Head Exam: ATRAUMATIC, NORMOCEPHALIC - Eye Exam Eye Exam: EOMI, Normal appearance, PERRL. absent: Scleral icterus - ENT Exam Additional comments: ET tube in place - Respiratory Exam Respiratory Exam: Rhonchi, Wheezes, NORMAL BREATHING PATTERN. absent: Clear to Ausculation Bilateral Additional comments: Mild crackles appreciated bilaterally - Cardiovascular Exam Cardiovascular Exam: RRR, +S1, +S2 Additional comments: No click appreciated on exam - GI/Abdominal Exam GI & Abdominal Exam: Soft. absent: Tenderness Additional comments: Obese - Extremities Exam Additional comments: BL LE PT/DP 2+ - Head Exam Additional comments: ET TUBE Assessment and Plan (1) CAP (community acquired pneumonia) Status: Acute (2) CHF exacerbation Status: Acute (3) NSTEMI (non-ST elevated myocardial infarction) Status: Acute (4) Morbid obesity Status: Chronic (5) COPD (chronic obstructive pulmonary disease) Status: Suspected - Assessment and Plan (Free Text) Assessment: Elevated NT-PROBNP due to high flow state in setting of sepsis reaction Patchy infiltrates continually appreciated on CXR; Can consider bronchoscopy w/ culture + viral PCR C/w heparin drip PTT 40-50 Continue Metropol 12.5 Q12. <Isaak Sutton - Last Filed: 12/08/18 11:55> Objective - Vital Signs/Intake and Output Vital Signs (last 24 hours): Temp Pulse Resp BP Pulse Ox 98.6 F 100 H 17 101/48 L 98 12/08/18 08:00 12/08/18 11:00 12/08/18 11:00 12/08/18 11:00 12/08/18 11:00 Intake and Output: 12/08/18 12/08/18 06:59 18:59 Intake Total 1793 814 Output Total 2900 200 Balance -1107 614 - Medications Medications: Current Medications Acetaminophen (Tylenol 325mg Tab) 650 mg PO Q6H PRN PRN Reason: Pain (1-10) Last Admin: 12/06/18 21:17 Dose: 650 mg Acetaminophen (Tylenol 325mg Tab) 650 mg PO Q6H PRN PRN Reason: Fever >100.4 F Last Admin: 11/28/18 06:07 Dose: 650 mg Acetaminophen (Tylenol 160mg/5ml Oral Soln) 160 mg PO ONCE PRN PRN Reason: Flu symptoms Albuterol/Ipratropium (Duoneb 3 Mg/0.5 Mg (3 Ml) Ud) 3 ml INH RQ6 [facility] Last Admin: 12/08/18 08:01 Dose: 3 ml Atorvastatin Calcium (Lipitor) 40 mg PO DAILY REPLACED BY [facility] Last Admin: 12/08/18 08:05 Dose: 40 mg Dimethicone (Proshield Plus Skin Protectant) 1 applic TOP Q8 REPLACED BY [facility] Last Admin: 12/08/18 08:21 Dose: 1 applic Furosemide 100 mg/ Sodium (Chloride) 100 mls @ 10 mls/hr IV .Q10H [facility]; Protocol Last Admin: 12/08/18 05:27 Dose: 10 mls/hr Aztreonam 1 gm/ Sodium (Chloride) 100 mls @ 100 mls/hr IVPB Q12 [facility]; Protocol Last Admin: 12/08/18 08:03 Dose: 100 mls/hr Linezolid (Zyvox 600mg/300ml D5w) 600 mg in 300 mls @ 300 mls/hr IVPB Q12 [facility]; Protocol Last Admin: 12/08/18 08:24 Dose: 300 mls/hr Heparin Sodium/Dextrose (Heparin 25,000 Units/250ml In D5w) 25,000 units in 250 mls @ 18 mls/hr IV .[id number] REPLACED BY [facility]; Protocol Stop: 12/08/18 18:59 Last Titration: 12/08/18 08:10 Dose: 19 mls/hr Metoprolol Tartrate (Lopressor) 12.5 mg PO Q12 REPLACED BY [facility] Last Admin: 12/08/18 09:51 Dose: 12.5 mg Morphine Sulfate (Morphine) 4 mg IVP Q4 PRN PRN Reason: Agitation Last Admin: 12/08/18 05:29 Dose: 4 mg Nystatin (Nystop Topical Powder) 1 applic TOP TID REPLACED BY [facility] Last Admin: 12/08/18 08:45 Dose: 1 applic Pantoprazole Sodium (Protonix Inj) 40 mg IVP Q12 [facility] Last Admin: 12/08/18 08:22 Dose: 40 mg - Labs Labs: 12/08/18 04:30 12/08/18 04:30 PT 11.8 Seconds (9.8-13.1) 12/08/18 04:30 INR 1.0 12/08/18 04:30 APTT 36.4 Seconds (25.6-37.1) 12/08/18 04:30 Assessment and Plan (1) NSTEMI (non-ST elevated myocardial infarction) Status: Acute (2) CAP (community acquired pneumonia) Status: Acute (3) CHF exacerbation Status: Acute (4) Respiratory distress Status: Acute (5) Respiratory failure with hypoxia and hypercapnia Status: Acute (6) History of aortic valve replacement Status: Chronic (7) Morbid obesity Status: Chronic (8) COPD (chronic obstructive pulmonary disease) Status: Suspected Attending/Attestation - Attestation I have personally seen and examined this patient.: Yes I have fully participated in the care of the patient.: Yes I have reviewed all pertinent clinical information, including history, physical exam and plan: Yes Notes (Text): 12/08/18 11:51 WOLFGANG showed normal Lvef with well functioning mechanical aortic valve consider bronchoscopy continue bb and AV Heparin
--- NOTE | 2018-12-07 17:46 | CP.PCM.PN ---
Subjective - Date & Time of Evaluation Date of Evaluation: 12/07/18 Time of Evaluation: 17:47 - Subjective Subjective: Still on vent support, sedated. On HD. H/H stable On iv antbx Above noted Objective - Vital Signs/Intake and Output Vital Signs (last 24 hours): Temp Pulse Resp BP Pulse Ox 97.1 F L 91 H 15 105/52 L 100 12/07/18 16:00 12/07/18 17:00 12/07/18 17:00 12/07/18 17:00 12/07/18 17:00 Intake and Output: 12/07/18 12/07/18 11:59 23:59 Intake Total 1239 370 Output Total 800 Balance 439 370 - Medications Medications: Current Medications Acetaminophen (Tylenol 325mg Tab) 650 mg PO Q6H PRN PRN Reason: Pain (1-10) Last Admin: 12/06/18 21:17 Dose: 650 mg Acetaminophen (Tylenol 325mg Tab) 650 mg PO Q6H PRN PRN Reason: Fever >100.4 F Last Admin: 11/28/18 06:07 Dose: 650 mg Acetaminophen (Tylenol 160mg/5ml Oral Soln) 160 mg PO ONCE PRN PRN Reason: Flu symptoms Albuterol/Ipratropium (Duoneb 3 Mg/0.5 Mg (3 Ml) Ud) 3 ml INH RQ6 [facility] Last Admin: 12/07/18 13:06 Dose: 3 ml Atorvastatin Calcium (Lipitor) 40 mg PO DAILY [facility] Last Admin: 12/07/18 08:19 Dose: 40 mg Dimethicone (Proshield Plus Skin Protectant) 1 applic TOP Q8 [facility] Last Admin: 12/07/18 08:24 Dose: 1 applic Furosemide 100 mg/ Sodium (Chloride) 100 mls @ 10 mls/hr IV .Q10H [facility]; Protocol Last Admin: 12/07/18 08:18 Dose: 10 mls/hr Aztreonam 1 gm/ Sodium (Chloride) 100 mls @ 100 mls/hr IVPB Q12 [facility]; Protocol Last Admin: 12/07/18 08:17 Dose: 100 mls/hr Linezolid (Zyvox 600mg/300ml D5w) 600 mg in 300 mls @ 300 mls/hr IVPB Q12 [facility]; Protocol Last Admin: 12/07/18 08:40 Dose: 300 mls/hr Propofol (Diprivan) 1,000 mg in 100 mls @ 11.859 mls/hr IV .Q8H26M [facility]; Protocol Stop: 12/08/18 10:04 Last Titration: 12/07/18 17:10 Dose: 20 mcg/kg/min, 15.812 mls/hr Heparin Sodium/Dextrose (Heparin 25,000 Units/250ml In D5w) 25,000 units in 250 mls @ 18 mls/hr IV .[id number] [facility]; Protocol Stop: 12/08/18 18:59 Last Admin: 12/07/18 16:05 Dose: 18 mls/hr Metoprolol Tartrate (Lopressor) 12.5 mg PO Q12 [facility] Last Admin: 12/07/18 08:19 Dose: 12.5 mg Morphine Sulfate (Morphine) 4 mg IVP Q4 PRN PRN Reason: Agitation Last Admin: 12/07/18 05:50 Dose: 4 mg Nystatin (Nystop Topical Powder) 1 applic TOP TID [facility] Last Admin: 12/07/18 16:10 Dose: Not Given Pantoprazole Sodium (Protonix Inj) 40 mg IVP Q12 [facility] Last Admin: 12/07/18 12:32 Dose: 40 mg - Labs Labs: 12/07/18 05:33 12/07/18 05:33 PT 11.3 Seconds (9.8-13.1) 12/03/18 19:13 INR 1.0 12/03/18 19:13 APTT 43.9 Seconds (25.6-37.1) H 12/07/18 01:00 - Constitutional Appears: Chronically Ill - Head Exam Head Exam: ATRAUMATIC, NORMAL INSPECTION, NORMOCEPHALIC - Respiratory Exam Respiratory Exam: Decreased Breath Sounds - Cardiovascular Exam Cardiovascular Exam: REGULAR RHYTHM, +S1, +S2 - GI/Abdominal Exam GI & Abdominal Exam: Soft - Extremities Exam Extremities Exam: Normal Inspection - Neurological Exam Additional comments: sedated Assessment and Plan (1) CAP (community acquired pneumonia) Status: Acute (2) CHF exacerbation Status: Acute (3) DVT prophylaxis Status: Acute (4) History of aortic valve replacement Status: Chronic (5) Influenza A Status: Acute (6) NSTEMI (non-ST elevated myocardial infarction) Status: Acute (7) Pneumonia and influenza Status: Acute (8) Respiratory distress Status: Acute (9) Respiratory failure with hypoxia and hypercapnia Status: Acute (10) Morbid obesity Status: Chronic (11) COPD (chronic obstructive pulmonary disease) Status: Suspected (12) Myocardial ischemia Status: Acute (13) Renal failure, acute Status: Acute (14) Hematoma Status: Acute (15) Sepsis Status: Acute
--- NOTE | 2018-12-07 21:12 | CP.PCM.PN ---
Subjective - Date & Time of Evaluation Date of Evaluation: 12/07/18 Time of Evaluation: 12:00 - Subjective Subjective: Patient intubated; urine output increased today; tolerating CPAP trial well; Objective - Vital Signs/Intake and Output Vital Signs (last 24 hours): Temp Pulse Resp BP Pulse Ox 97.1 F L 97 H 18 119/50 L 100 12/07/18 16:00 12/07/18 19:00 12/07/18 19:00 12/07/18 19:00 12/07/18 19:00 Intake and Output: 12/07/18 12/08/18 18:59 06:59 Intake Total 972 Output Total 1100 1999 Balance -128 -2000 - Medications Medications: Current Medications Acetaminophen (Tylenol 325mg Tab) 650 mg PO Q6H PRN PRN Reason: Pain (1-10) Last Admin: 12/06/18 21:17 Dose: 650 mg Acetaminophen (Tylenol 325mg Tab) 650 mg PO Q6H PRN PRN Reason: Fever >100.4 F Last Admin: 11/28/18 06:07 Dose: 650 mg Acetaminophen (Tylenol 160mg/5ml Oral Soln) 160 mg PO ONCE PRN PRN Reason: Flu symptoms Albuterol/Ipratropium (Duoneb 3 Mg/0.5 Mg (3 Ml) Ud) 3 ml INH RQ6 [facility] Last Admin: 12/07/18 19:02 Dose: 3 ml Atorvastatin Calcium (Lipitor) 40 mg PO DAILY [facility] Last Admin: 12/07/18 08:19 Dose: 40 mg Dimethicone (Proshield Plus Skin Protectant) 1 applic TOP Q8 [facility] Last Admin: 12/07/18 17:56 Dose: 1 applic Furosemide 100 mg/ Sodium (Chloride) 100 mls @ 10 mls/hr IV .Q10H [facility]; Protocol Last Admin: 12/07/18 18:17 Dose: 10 mls/hr Aztreonam 1 gm/ Sodium (Chloride) 100 mls @ 100 mls/hr IVPB Q12 [facility]; Protocol Last Admin: 12/07/18 08:17 Dose: 100 mls/hr Linezolid (Zyvox 600mg/300ml D5w) 600 mg in 300 mls @ 300 mls/hr IVPB Q12 [facility]; Protocol Last Admin: 12/07/18 08:40 Dose: 300 mls/hr Propofol (Diprivan) 1,000 mg in 100 mls @ 11.859 mls/hr IV .Q8H26M [facility]; Protocol Stop: 12/08/18 10:04 Last Titration: 12/07/18 17:10 Dose: 20 mcg/kg/min, 15.812 mls/hr Heparin Sodium/Dextrose (Heparin 25,000 Units/250ml In D5w) 25,000 units in 250 mls @ 18 mls/hr IV .[id number] [facility]; Protocol Stop: 12/08/18 18:59 Last Admin: 12/07/18 16:05 Dose: 18 mls/hr Metoprolol Tartrate (Lopressor) 12.5 mg PO Q12 [facility] Last Admin: 12/07/18 08:19 Dose: 12.5 mg Morphine Sulfate (Morphine) 4 mg IVP Q4 PRN PRN Reason: Agitation Last Admin: 12/07/18 05:50 Dose: 4 mg Nystatin (Nystop Topical Powder) 1 applic TOP TID [facility] Last Admin: 12/07/18 17:56 Dose: 1 applic Pantoprazole Sodium (Protonix Inj) 40 mg IVP Q12 [facility] Last Admin: 12/07/18 12:32 Dose: 40 mg - Labs Labs: 12/07/18 05:33 12/07/18 05:33 PT 11.3 Seconds (9.8-13.1) 12/03/18 19:13 INR 1.0 12/03/18 19:13 APTT 43.9 Seconds (25.6-37.1) H 12/07/18 01:00 - Constitutional Appears: Non-toxic, No Acute Distress - Eye Exam Eye Exam: Normal appearance - Respiratory Exam Respiratory Exam: Wheezes. absent: Respiratory Distress - Cardiovascular Exam Cardiovascular Exam: RRR, +S1, +S2 - GI/Abdominal Exam GI & Abdominal Exam: Soft. absent: Distended, Tenderness - Extremities Exam Additional comments: edematous UE b/l; no leg edema; - Neurological Exam Neurological Exam: Alert, Awake - Psychiatric Exam Psychiatric exam: absent: Agitated - Skin Skin Exam: Warm. absent: Cyanosis Assessment and Plan (1) Renal failure, acute Assessment & Plan: Consistent with ATN, possibility of superimposed AIN with marked pyuria; otherwise, non-oliguric renal failure with stable lytes and FIO2 requirement (mild hypoxia noted); CXR overall improved; urine output now up to ~100 cc/hr this morning; hemodynamically stable; -dialyzing today for clearance and fluid removal; -continue lasix drip for today to help maintain overall negative fluid balance; will plan to hold both HD and lasix drip tomorrow to better evaluate renal function; -avoid nephrotoxic agents; Status: Acute (2) Acute hypoxemic respiratory failure Status: Acute (3) Anemia Status: Acute (4) Hypotension Status: Acute (5) Sepsis Assessment & Plan: Coag neg staff, awaiting repeat urine culture; on aztreonam and linezolid, should dose for CrCl < 15 ml/min Status: Acute
[2018-12-08] MEDS: Proshield Plus GEL TOP SCH ×3 (01:00→16:20)
[2018-12-08] MEDS: Albuterol-Ipratrop 3 mg / 0.5 (3 ml) UD INH SCH ×4 (01:00→19:48)
[2018-12-08] MEDS: Furosemide 100 MG in Sodium Chloride 0.9% 100 ML IV SCH ×2 (05:27→22:30)
[2018-12-08] MEDS: Propofol 10 mg/ml 1,000 MG/100 ML VIAL IV SCH ×2 (05:28→07:32)
[2018-12-08] MEDS: Morphine 4 MG/ML VIAL IVP PRN (05:29)
[2018-12-08 05:31] LABS: HEMOGLOBIN 7.9 g/dL (12.0-16.0); MEAN CELL VOLUME 93.3 fl (81.0-99.0); MEAN CORPUSCULAR HEMOGLOBIN 31.8 pg (27.0-31.0); MEAN CORPUSCULAR HGB CONC 34.1 g/dL (33.0-37.0); RBC 2.48 Mil/uL (3.80-5.20); RED CELL DISTRIBUTION WIDTH 14.8 % (11.5-14.5); WHITE BLOOD COUNT 13.6 K/uL (4.8-10.8)
[2018-12-08 05:35] LABS: ABG ALLEN TEST YES; ARTERIAL BLOOD GAS HCO3 23.1 mmol/L (21-28); ARTERIAL BLOOD GAS O2 SAT 100.3 % (95-98); ARTERIAL BLOOD GAS PCO2 52 mm/Hg (35-45); ARTERIAL BLOOD GAS PH 7.29 (7.35-7.45); ARTERIAL BLOOD GAS PO2 83 mm/Hg (80-100); ARTERIAL BLOOD GAS TCO2 26.6 mmol/L (22-28)
[2018-12-08 05:37] LABS: PROTHROMBIN TIME 11.8 Seconds (9.8-13.1)
[2018-12-08 05:40] LABS: PARTIAL THROMBOPLASTIN TIME 36.4 Seconds (25.6-37.1)
[2018-12-08 05:45] LABS: CALCIUM 8.5 mg/dL (8.4-10.2)
[2018-12-08] MEDS: Heparin 25,000units in D5W 25,000 UNITS/250 ML BAG IV SCH ×2 (06:00→22:00)
[2018-12-08] MEDS: Aztreonam 1 GM in Sodium Chloride 0.9% 100 ML IVPB SCH ×2 (08:03→20:50)
[2018-12-08] MEDS ORDERED: Albuterol-Ipratrop 3 mg / 0.5 (3 ml) UD INH STA ×2 (08:16→14:48)
[2018-12-08] MEDS: Linezolid 600 mg in D5W 300 ml 600 MG/300 ML BAG IVPB SCH ×2 (08:24→20:50)
--- NOTE | 2018-12-08 08:49 | CP.PCM.PN ---
Subjective - Date & Time of Evaluation Date of Evaluation: 12/08/18 Time of Evaluation: 08:37 - Subjective Subjective: Interim events reviewed. Back on PRVC/AC overnight. Hemodialysis done yesterday with removal of 2L fluid. Remains afebrile, mildly tachycardic, normotensive and well oxygenated. Today's chest x-ray does show improved aeration, subsegmental atelectasis lingula, no consolidation. Slight increased PaCO2 on AM blood gas, good PaO2 and mild acidosis. On exam she appears slightly distressed this morning. This was also noted earlier in the AM and she was given 4MG MSO4. At that time earlier she was on PRVC/AC, presently she has been placed back on CPAP/PS. Oxygenation remains the same, EtCO2 noted to be 50. Dependant edema is decreased, no cyanosis noted, rash on LE's still present , more confluence proximally. Neck is supple and trachea remains midline. No palpable subcutaneous emphysema. Breath sounds are present in both lungs equally. Inspiratory and expiratory low pitch wheezes present R>L. Dry rales, few, in dependant lower lobes bilaterally. Extra aerosol therapy requested now. Will hopefully achieve extubation today. Will require NPPV for bridging when extubated. Sedation/analgesia as needed. Objective - Vital Signs/Intake and Output Vital Signs (last 24 hours): Temp Pulse Resp BP Pulse Ox 98.6 F 94 H 14 103/39 L 100 12/08/18 08:00 12/08/18 08:00 12/08/18 08:00 12/08/18 08:00 12/08/18 08:00 Intake and Output: 12/07/18 12/08/18 23:59 11:59 Intake Total 880 1326 Output Total 3100 900 Balance -2220 426 - Medications Medications: Current Medications Acetaminophen (Tylenol 325mg Tab) 650 mg PO Q6H PRN PRN Reason: Pain (1-10) Last Admin: 12/06/18 21:17 Dose: 650 mg Acetaminophen (Tylenol 325mg Tab) 650 mg PO Q6H PRN PRN Reason: Fever >100.4 F Last Admin: 11/28/18 06:07 Dose: 650 mg Acetaminophen (Tylenol 160mg/5ml Oral Soln) 160 mg PO ONCE PRN PRN Reason: Flu symptoms Albuterol/Ipratropium (Duoneb 3 Mg/0.5 Mg (3 Ml) Ud) 3 ml INH RQ6 [facility] Last Admin: 12/08/18 08:01 Dose: 3 ml Atorvastatin Calcium (Lipitor) 40 mg PO DAILY [facility] Last Admin: 12/08/18 08:05 Dose: 40 mg Dimethicone (Proshield Plus Skin Protectant) 1 applic TOP Q8 [facility] Last Admin: 12/08/18 08:21 Dose: 1 applic Furosemide 100 mg/ Sodium (Chloride) 100 mls @ 10 mls/hr IV .Q10H [facility]; Protocol Last Admin: 12/08/18 05:27 Dose: 10 mls/hr Aztreonam 1 gm/ Sodium (Chloride) 100 mls @ 100 mls/hr IVPB Q12 [facility]; Protocol Last Admin: 12/08/18 08:03 Dose: 100 mls/hr Linezolid (Zyvox 600mg/300ml D5w) 600 mg in 300 mls @ 300 mls/hr IVPB Q12 [facility]; Protocol Last Admin: 12/08/18 08:24 Dose: 300 mls/hr Propofol (Diprivan) 1,000 mg in 100 mls @ 11.859 mls/hr IV .Q8H26M [facility]; Protocol Stop: 12/08/18 10:04 Last Titration: 12/08/18 05:50 Dose: 25 mcg/kg/min, 19.765 mls/hr Heparin Sodium/Dextrose (Heparin 25,000 Units/250ml In D5w) 25,000 units in 250 mls @ 18 mls/hr IV .[id number] [facility]; Protocol Stop: 12/08/18 18:59 Last Admin: 12/08/18 06:00 Dose: 18 mls/hr Metoprolol Tartrate (Lopressor) 12.5 mg PO Q12 [facility] Last Admin: 12/07/18 21:24 Dose: 12.5 mg Morphine Sulfate (Morphine) 4 mg IVP Q4 PRN PRN Reason: Agitation Last Admin: 12/08/18 05:29 Dose: 4 mg Nystatin (Nystop Topical Powder) 1 applic TOP TID [facility] Last Admin: 12/07/18 17:56 Dose: 1 applic Pantoprazole Sodium (Protonix Inj) 40 mg IVP Q12 [facility] Last Admin: 01/22/19 08:22 Dose: 40 mg - Labs Labs: 12/08/18 04:30 12/08/18 04:30 PT 11.8 Seconds (9.8-13.1) 12/08/18 04:30 INR 1.0 12/08/18 04:30 APTT 36.4 Seconds (25.6-37.1) 12/08/18 04:30 Assessment and Plan (1) Respiratory failure with hypoxia and hypercapnia Status: Acute (2) Influenza A Status: Acute (3) Pneumonia and influenza Status: Acute (4) Morbid obesity Status: Chronic (5) COPD (chronic obstructive pulmonary disease) Status: Suspected
--- NOTE | 2018-12-08 10:18 | RAD ---
Date of service: 12/07/2018 HISTORY: new placement of OGT COMPARISON: Chest radiograph performed approximately 16.5 hours prior. FINDINGS: LUNGS: Pulmonary vascular congestion. Patchy right midlung infiltrate. PLEURA: No significant pleural effusion identified, no pneumothorax apparent. CARDIOVASCULAR: Prior sternotomy with sternal wires and surgical clips in place. Aortic atherosclerotic calcifications. Cardiomediastinal silhouette stably enlarged. OSSEOUS STRUCTURES: Unchanged. VISUALIZED UPPER ABDOMEN: Normal. OTHER FINDINGS: Endotracheal tube, unchanged. Tip of enteric tube not well-visualized. Right upper extremity PICC, unchanged. Left internal jugular access non tunneled hemodialysis catheter, unchanged. IMPRESSION: Tip of enteric tube not well visualized due to underpenetration. Otherwise, stable tubes and lines. Stable pulmonary vascular congestion. Stable right midlung patchy infiltrate. No significant interval change.
--- NOTE | 2018-12-08 10:44 | RAD ---
Date of service: 12/08/2018 HISTORY: intubated COMPARISON: Chest radiograph dated 12/07/2018 FINDINGS: LUNGS: Pulmonary vascular congestion. Patchy right midlung infiltrate. Left midlung atelectasis. PLEURA: No significant pleural effusion identified, no pneumothorax apparent. CARDIOVASCULAR: Prior sternotomy with sternal wires and surgical clips in place. Aortic atherosclerotic calcifications. Cardiomediastinal silhouette stably enlarged. OSSEOUS STRUCTURES: Unchanged. VISUALIZED UPPER ABDOMEN: Normal. OTHER FINDINGS: Endotracheal tube, unchanged. Enteric tube tip in the stomach. Right upper extremity PICC, unchanged. Left internal jugular access non tunneled hemodialysis catheter, unchanged. IMPRESSION: Orogastric tube with tip in the stomach. Otherwise, stable tubes and lines. Stable pulmonary vascular congestion. Stable patchy right midlung infiltrate and linear left midlung atelectasis.
--- NOTE | 2018-12-08 11:15 | CP.PCM.PN ---
<Celestine Calhoun - Last Filed: 12/08/18 20:34> Subjective - Date & Time of Evaluation Date of Evaluation: 12/08/18 Time of Evaluation: 20:34 - Subjective Subjective: Celestine Calhoun DO PGY1 - Internal Medicine Project Lead - Cardiology Note for Dr. Sutton Patient was seen and examined at bedside this morning, vital signs were reviewed patient is hemodynamically stable however she is borderline hypotensive. Currently intubated has been on CPAP since this morning. this morning. No acute events overnight. Patient continues to be intubated. Objective - Vital Signs/Intake and Output Vital Signs (last 24 hours): Temp Pulse Resp BP Pulse Ox 98.6 F 100 H 17 101/48 L 98 12/08/18 08:00 12/08/18 11:00 12/08/18 11:00 12/08/18 11:00 12/08/18 11:00 Intake and Output: 12/08/18 12/08/18 06:59 18:59 Intake Total 1793 814 Output Total 2900 200 Balance -1107 614 - Medications Medications: Current Medications Acetaminophen (Tylenol 325mg Tab) 650 mg PO Q6H PRN PRN Reason: Pain (1-10) Last Admin: 12/06/18 21:17 Dose: 650 mg Acetaminophen (Tylenol 325mg Tab) 650 mg PO Q6H PRN PRN Reason: Fever >100.4 F Last Admin: 11/28/18 06:07 Dose: 650 mg Acetaminophen (Tylenol 160mg/5ml Oral Soln) 160 mg PO ONCE PRN PRN Reason: Flu symptoms Albuterol/Ipratropium (Duoneb 3 Mg/0.5 Mg (3 Ml) Ud) 3 ml INH RQ6 [facility] Last Admin: 12/08/18 08:01 Dose: 3 ml Atorvastatin Calcium (Lipitor) 40 mg PO DAILY [facility] Last Admin: 12/08/18 08:05 Dose: 40 mg Dimethicone (Proshield Plus Skin Protectant) 1 applic TOP Q8 [facility] Last Admin: 12/08/18 08:21 Dose: 1 applic Furosemide 100 mg/ Sodium (Chloride) 100 mls @ 10 mls/hr IV .Q10H [facility]; Protocol Last Admin: 12/08/18 05:27 Dose: 10 mls/hr Aztreonam 1 gm/ Sodium (Chloride) 100 mls @ 100 mls/hr IVPB Q12 [facility]; Protocol Last Admin: 12/08/18 08:03 Dose: 100 mls/hr Linezolid (Zyvox 600mg/300ml D5w) 600 mg in 300 mls @ 300 mls/hr IVPB Q12 [facility]; Protocol Last Admin: 12/08/18 08:24 Dose: 300 mls/hr Heparin Sodium/Dextrose (Heparin 25,000 Units/250ml In D5w) 25,000 units in 250 mls @ 18 mls/hr IV .[id number] [facility]; Protocol Stop: 12/08/18 18:59 Last Titration: 12/08/18 08:10 Dose: 19 mls/hr Metoprolol Tartrate (Lopressor) 12.5 mg PO Q12 [facility] Last Admin: 12/08/18 09:51 Dose: 12.5 mg Morphine Sulfate (Morphine) 4 mg IVP Q4 PRN PRN Reason: Agitation Last Admin: 12/08/18 05:29 Dose: 4 mg Nystatin (Nystop Topical Powder) 1 applic TOP TID [facility] Last Admin: 12/08/18 08:45 Dose: 1 applic Pantoprazole Sodium (Protonix Inj) 40 mg IVP Q12 [facility] Last Admin: 12/08/18 08:22 Dose: 40 mg - Labs Labs: 12/08/18 04:30 12/08/18 04:30 PT 11.8 Seconds (9.8-13.1) 12/08/18 04:30 INR 1.0 12/08/18 04:30 APTT 36.4 Seconds (25.6-37.1) 12/08/18 04:30 - Constitutional Appears: Non-toxic, No Acute Distress - Head Exam Head Exam: ATRAUMATIC, NORMOCEPHALIC - Eye Exam Eye Exam: EOMI, Normal appearance, PERRL. absent: Scleral icterus - ENT Exam Additional comments: ET tube in place - Respiratory Exam Respiratory Exam: Rhonchi, Wheezes, NORMAL BREATHING PATTERN. absent: Clear to Ausculation Bilateral Additional comments: Mild crackles appreciated bilaterally - Cardiovascular Exam Cardiovascular Exam: RRR, +S1, +S2 Additional comments: No click appreciated on exam - GI/Abdominal Exam GI & Abdominal Exam: Soft. absent: Tenderness Additional comments: Obese - Extremities Exam Additional comments: BL LE PT/DP 2+ Assessment and Plan (1) CAP (community acquired pneumonia) Status: Acute (2) CHF exacerbation Status: Acute (3) NSTEMI (non-ST elevated myocardial infarction) Status: Acute (4) Morbid obesity Status: Chronic (5) COPD (chronic obstructive pulmonary disease) Status: Suspected - Assessment and Plan (Free Text) Plan: Continue Metoprolol 12.5 Q12 Patient extubated at time of documentation; No longer on heparin drip; Will need to consider AC as patient has hx of mechanical valve Further reccs per Dr. Sutton to follow. <Isaak Sutton - Last Filed: 12/09/18 20:38> Objective - Vital Signs/Intake and Output Vital Signs (last 24 hours): Temp Pulse Resp BP Pulse Ox 99.0 F 102 H 19 102/45 L 94 L 12/09/18 16:00 12/09/18 18:00 12/09/18 18:00 12/09/18 18:00 12/09/18 18:00 Intake and Output: 12/09/18 12/10/18 18:59 06:59 Intake Total 1218 Output Total 1100 Balance 118 - Medications Medications: Current Medications Acetaminophen (Tylenol 325mg Tab) 650 mg PO Q6H PRN PRN Reason: Pain (1-10) Last Admin: 12/06/18 21:17 Dose: 650 mg Acetaminophen (Tylenol 325mg Tab) 650 mg PO Q6H PRN PRN Reason: Fever >100.4 F Last Admin: 11/28/18 06:07 Dose: 650 mg Acetaminophen (Tylenol 160mg/5ml Oral Soln) 160 mg PO ONCE PRN PRN Reason: Flu symptoms Albuterol/Ipratropium (Duoneb 3 Mg/0.5 Mg (3 Ml) Ud) 3 ml INH RQ6 [facility] Last Admin: 12/09/18 19:37 Dose: 3 ml Atorvastatin Calcium (Lipitor) 40 mg PO DAILY [facility] Last Admin: 12/09/18 16:23 Dose: 40 mg Dimethicone (Proshield Plus Skin Protectant) 1 applic TOP Q8 [facility] Last Admin: 12/09/18 16:26 Dose: 1 applic Aztreonam 1 gm/ Sodium (Chloride) 100 mls @ 100 mls/hr IVPB Q12 [facility]; Protocol Last Admin: 12/09/18 08:13 Dose: 100 mls/hr Linezolid (Zyvox 600mg/300ml D5w) 600 mg in 300 mls @ 300 mls/hr IVPB Q12 [facility]; Protocol Last Admin: 12/09/18 08:32 Dose: 300 mls/hr Micafungin Sodium 100 mg/ (Sodium Chloride) 100 mls @ 100 mls/hr IVPB DAILY [facility]; Protocol Last Admin: 12/09/18 08:14 Dose: 100 mls/hr Heparin Sodium/Dextrose (Heparin 25,000 Units/250ml In D5w) 25,000 units in 250 mls @ 19 mls/hr IV .[id number] [facility]; Protocol Last Admin: 12/09/18 09:04 Dose: 19 mls/hr Metoprolol Tartrate (Lopressor) 12.5 mg PO Q12 [facility] Last Admin: 12/09/18 11:13 Dose: Not Given Morphine Sulfate (Morphine) 4 mg IVP Q4 PRN PRN Reason: Agitation Last Admin: 12/08/18 05:29 Dose: 4 mg Nystatin (Nystop Topical Powder) 1 applic TOP TID [facility] Last Admin: 12/09/18 16:26 Dose: 1 applic Pantoprazole Sodium (Protonix Inj) 40 mg IVP Q12 [facility] Last Admin: 12/09/18 08:15 Dose: 40 mg - Labs Labs: 12/09/18 04:00 12/09/18 04:00 PT 12.0 Seconds (9.8-13.1) 12/09/18 10:30 INR 1.1 12/09/18 10:30 APTT 49.4 Seconds (25.6-37.1) H 12/09/18 10:30 Assessment and Plan (1) NSTEMI (non-ST elevated myocardial infarction) Status: Acute (2) CAP (community acquired pneumonia) Status: Acute (3) CHF exacerbation Status: Acute (4) Respiratory distress Status: Acute (5) Respiratory failure with hypoxia and hypercapnia Status: Acute (6) History of aortic valve replacement Status: Chronic (7) Morbid obesity Status: Chronic (8) COPD (chronic obstructive pulmonary disease) Status: Suspected Attending/Attestation - Attestation I have personally seen and examined this patient.: Yes I have fully participated in the care of the patient.: Yes I have reviewed all pertinent clinical information, including history, physical exam and plan: Yes Notes (Text): 12/09/18 20:38 Extubated resume OAC with coumadin cont bb consider adding arbs
--- NOTE | 2018-12-08 12:18 | CP.PCM.PN ---
Subjective - Date & Time of Evaluation Date of Evaluation: 12/08/18 Time of Evaluation: 09:00 - Subjective Subjective: yeast in sputum/ urine blood so far negative added mycamine Objective - Vital Signs/Intake and Output Vital Signs (last 24 hours): Temp Pulse Resp BP Pulse Ox 98.6 F 89 14 99/47 L 97 12/08/18 08:00 12/08/18 12:00 12/08/18 12:00 12/08/18 12:00 12/08/18 12:00 Intake and Output: 12/08/18 12/08/18 06:59 18:59 Intake Total 1793 852 Output Total 2900 200 Balance -1107 652 - Medications Medications: Current Medications Acetaminophen (Tylenol 325mg Tab) 650 mg PO Q6H PRN PRN Reason: Pain (1-10) Last Admin: 12/06/18 21:17 Dose: 650 mg Acetaminophen (Tylenol 325mg Tab) 650 mg PO Q6H PRN PRN Reason: Fever >100.4 F Last Admin: 11/28/18 06:07 Dose: 650 mg Acetaminophen (Tylenol 160mg/5ml Oral Soln) 160 mg PO ONCE PRN PRN Reason: Flu symptoms Albuterol/Ipratropium (Duoneb 3 Mg/0.5 Mg (3 Ml) Ud) 3 ml INH RQ6 [facility] Last Admin: 12/08/18 08:01 Dose: 3 ml Atorvastatin Calcium (Lipitor) 40 mg PO DAILY [facility] Last Admin: 12/08/18 08:05 Dose: 40 mg Dimethicone (Proshield Plus Skin Protectant) 1 applic TOP Q8 [facility] Last Admin: 12/08/18 08:21 Dose: 1 applic Furosemide 100 mg/ Sodium (Chloride) 100 mls @ 10 mls/hr IV .Q10H [facility]; Protocol Last Admin: 12/08/18 05:27 Dose: 10 mls/hr Aztreonam 1 gm/ Sodium (Chloride) 100 mls @ 100 mls/hr IVPB Q12 [facility]; Protocol Last Admin: 12/08/18 08:03 Dose: 100 mls/hr Linezolid (Zyvox 600mg/300ml D5w) 600 mg in 300 mls @ 300 mls/hr IVPB Q12 [facility]; Protocol Last Admin: 12/08/18 08:24 Dose: 300 mls/hr Heparin Sodium/Dextrose (Heparin 25,000 Units/250ml In D5w) 25,000 units in 250 mls @ 18 mls/hr IV .[id number] [facility]; Protocol Stop: 12/08/18 18:59 Last Titration: 12/08/18 08:10 Dose: 19 mls/hr Micafungin Sodium 100 mg/ (Sodium Chloride) 100 mls @ 100 mls/hr IVPB DAILY [facility]; Protocol Metoprolol Tartrate (Lopressor) 12.5 mg PO Q12 [facility] Last Admin: 12/08/18 09:51 Dose: 12.5 mg Morphine Sulfate (Morphine) 4 mg IVP Q4 PRN PRN Reason: Agitation Last Admin: 12/08/18 05:29 Dose: 4 mg Nystatin (Nystop Topical Powder) 1 applic TOP TID [facility] Last Admin: 12/08/18 08:45 Dose: 1 applic Pantoprazole Sodium (Protonix Inj) 40 mg IVP Q12 [facility] Last Admin: 12/08/18 08:22 Dose: 40 mg - Labs Labs: 12/08/18 04:30 12/08/18 04:30 PT 11.8 Seconds (9.8-13.1) 12/08/18 04:30 INR 1.0 12/08/18 04:30 APTT 36.4 Seconds (25.6-37.1) 12/08/18 04:30 - Constitutional Appears: Non-toxic, Chronically Ill - Head Exam Head Exam: NORMOCEPHALIC - Eye Exam Eye Exam: absent: Scleral icterus - ENT Exam ENT Exam: Mucous Membranes Dry - Neck Exam Neck Exam: absent: Lymphadenopathy - Respiratory Exam Respiratory Exam: Decreased Breath Sounds - Cardiovascular Exam Cardiovascular Exam: REGULAR RHYTHM - GI/Abdominal Exam GI & Abdominal Exam: Distended - Rectal Exam Rectal Exam: Deferred Assessment and Plan (1) Acute hypoxemic respiratory failure Status: Acute (2) Anemia Status: Acute (3) CAP (community acquired pneumonia) Status: Acute (4) CHF exacerbation Status: Acute (5) Coagulopathy Status: Acute (6) Hematoma Status: Acute (7) Hypotension Status: Acute (8) Influenza A Status: Acute (9) Leukocytosis Status: Acute (10) NSTEMI (non-ST elevated myocardial infarction) Status: Acute (11) Pneumonia and influenza Status: Acute (12) Renal failure, acute Status: Acute (13) Sepsis Status: Acute (14) History of aortic valve replacement Status: Chronic (15) COPD (chronic obstructive pulmonary disease) Status: Suspected (16) Myocardial ischemia Status: Acute
[2018-12-08 12:56] LABS: ABG ALLEN TEST YES; ARTERIAL BLOOD GAS HCO3 26.5 mmol/L (21-28); ARTERIAL BLOOD GAS O2 SAT 100.2 % (95-98); ARTERIAL BLOOD GAS PCO2 52 mm/Hg (35-45); ARTERIAL BLOOD GAS PH 7.34 (7.35-7.45); ARTERIAL BLOOD GAS PO2 77 mm/Hg (80-100); ARTERIAL BLOOD GAS TCO2 29.7 mmol/L (22-28)
--- NOTE | 2018-12-08 13:51 | CP.PCM.PN ---
Subjective - Date & Time of Evaluation Date of Evaluation: 12/08/18 Time of Evaluation: 13:52 - Subjective Subjective: Patietn still on vent support. H/H stable Renal function improving on HD, patient with good output On iv antibx The prognosis still guarded. 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 Objective - Vital Signs/Intake and Output Vital Signs (last 24 hours): Temp Pulse Resp BP Pulse Ox 98.4 F 91 H 16 102/45 L 100 12/08/18 12:00 12/08/18 13:00 12/08/18 13:00 12/08/18 13:00 12/08/18 13:00 Intake and Output: 12/08/18 12/08/18 11:59 23:59 Intake Total 2140 38 Output Total 1100 Balance 1040 38 - Medications Medications: Current Medications Acetaminophen (Tylenol 325mg Tab) 650 mg PO Q6H PRN PRN Reason: Pain (1-10) Last Admin: 12/06/18 21:17 Dose: 650 mg Acetaminophen (Tylenol 325mg Tab) 650 mg PO Q6H PRN PRN Reason: Fever >100.4 F Last Admin: 11/28/18 06:07 Dose: 650 mg Acetaminophen (Tylenol 160mg/5ml Oral Soln) 160 mg PO ONCE PRN PRN Reason: Flu symptoms Albuterol/Ipratropium (Duoneb 3 Mg/0.5 Mg (3 Ml) Ud) 3 ml INH RQ6 [facility] Last Admin: 12/08/18 13:38 Dose: 3 ml Atorvastatin Calcium (Lipitor) 40 mg PO DAILY [facility] Last Admin: 12/08/18 08:05 Dose: 40 mg Dimethicone (Proshield Plus Skin Protectant) 1 applic TOP Q8 [facility] Last Admin: 12/08/18 08:21 Dose: 1 applic Furosemide 100 mg/ Sodium (Chloride) 100 mls @ 10 mls/hr IV .Q10H [facility]; Protocol Last Admin: 12/08/18 05:27 Dose: 10 mls/hr Aztreonam 1 gm/ Sodium (Chloride) 100 mls @ 100 mls/hr IVPB Q12 [facility]; Protocol Last Admin: 12/08/18 08:03 Dose: 100 mls/hr Linezolid (Zyvox 600mg/300ml D5w) 600 mg in 300 mls @ 300 mls/hr IVPB Q12 [facility]; Protocol Last Admin: 12/08/18 08:24 Dose: 300 mls/hr Heparin Sodium/Dextrose (Heparin 25,000 Units/250ml In D5w) 25,000 units in 250 mls @ 18 mls/hr IV .[id number] [facility]; Protocol Stop: 12/08/18 18:59 Last Titration: 12/08/18 08:10 Dose: 19 mls/hr Micafungin Sodium 100 mg/ (Sodium Chloride) 100 mls @ 100 mls/hr IVPB DAILY [facility]; Protocol Metoprolol Tartrate (Lopressor) 12.5 mg PO Q12 [facility] Last Admin: 12/08/18 09:51 Dose: 12.5 mg Morphine Sulfate (Morphine) 4 mg IVP Q4 PRN PRN Reason: Agitation Last Admin: 12/08/18 05:29 Dose: 4 mg Nystatin (Nystop Topical Powder) 1 applic TOP TID [facility] Last Admin: 12/08/18 12:20 Dose: 1 applic Pantoprazole Sodium (Protonix Inj) 40 mg IVP Q12 [facility] Last Admin: 12/08/18 08:22 Dose: 40 mg - Labs Labs: 12/08/18 04:30 12/08/18 04:30 PT 11.8 Seconds (9.8-13.1) 12/08/18 04:30 INR 1.0 12/08/18 04:30 APTT 36.4 Seconds (25.6-37.1) 12/08/18 04:30 - Constitutional Appears: Chronically Ill - Head Exam Head Exam: ATRAUMATIC, NORMAL INSPECTION, NORMOCEPHALIC - Eye Exam Eye Exam: Normal appearance - Respiratory Exam Respiratory Exam: Decreased Breath Sounds - Cardiovascular Exam Cardiovascular Exam: REGULAR RHYTHM, +S1, +S2 - GI/Abdominal Exam GI & Abdominal Exam: Soft - Extremities Exam Extremities Exam: Normal Inspection - Neurological Exam Additional comments: sedated Assessment and Plan (1) CAP (community acquired pneumonia) Status: Acute (2) CHF exacerbation Status: Acute (3) DVT prophylaxis Status: Acute (4) History of aortic valve replacement Status: Chronic (5) Influenza A Status: Acute (6) NSTEMI (non-ST elevated myocardial infarction) Status: Acute (7) Pneumonia and influenza Status: Acute (8) Respiratory distress Status: Acute (9) Respiratory failure with hypoxia and hypercapnia Status: Acute (10) Morbid obesity Status: Chronic (11) COPD (chronic obstructive pulmonary disease) Status: Suspected (12) Myocardial ischemia Status: Acute (13) Renal failure, acute Status: Acute (14) Hematoma Status: Acute (15) Sepsis Status: Acute
--- NOTE | 2018-12-08 14:51 | CP.CCUPN ---
CCU Subjective - Physician Review Subjective (Free Text): 12/08/18 14:49 The patient was Seen/interviewed and examined by me at the bedside during ICU round, Medical records reviewed and Management issues were discussed and formulated with the house staff. Events reviewed 58 Years old Female with PMHx of Morbid obesity, AVR (on coumadin), CHF, CAD, HTN and possible COPD who presented to the Emergency department with 2 days of fever (measured up to 103 in ER), cough with clear sputum and SOB, symptoms got significantly worse today. Patient has tried OTC medications with minimal relief, Denies chest pain/pressure. As per chart, on admission the Patient not able to provide much other history g iven her current difficulty breathing. Shortly after admission she was intubated by Anesthesiologist for lethargy and hypercarbia in the presence of new NSTEMI. Patient remains orally intubated Patient on ventilator, on PRVC TV 450, RR 10, FIO2 50%, no pressors, opens eyes to verbal stimuli Afebrile, NSR on the monitor No Vasopressors Pt on IV Zyvox/ Azactam Positive Blood C/S for coagulase negative Staph and Sputum C/S for Yeast Last 24H I&O 2765/4000 Had HD yesterday with 2L net fluid removal Patient on Heparin and Lasix drip Vent weaning in progress sedated discontinued She was placed on CPAP, with PS trial in AM and tolerating so far The plan for possible extubation today CCU Objective - Vital Signs / Intake & Output Vital Signs (Last 4 hours): Vital Signs Temp Pulse Resp BP Pulse Ox 12/08/18 14:00 95 H 15 108/42 L 99 12/08/18 13:00 91 H 16 102/45 L 100 12/08/18 12:00 98.4 F 89 14 99/47 L 99 12/08/18 11:00 100 H 17 101/48 L 98 Intake and Output (Last 8hrs): Intake & Output 12/07/18 12/08/18 12/08/18 22:59 06:59 14:59 Intake Total 529 1336 890 Output Total 3100 900 400 Balance -2571 436 490 Weight 289 lb Intake: IV 221 350 290 Intake, Piggyback 108 586 400 Tube Feeding 200 Free Water Flush 200 400 Output: Urine 1100 900 400 Urethral (Olivarez) 1100 900 Urine, Voided 400 Ultrafiltrate 2000 Other: # Bowel Movements 1 - Physical Exam Head: Positive for: Atraumatic, Normocephalic Pupils: Positive for: PERRL Ears: Positive for: Normal Mouth: Positive for: Moist Mucous Membranes Nose (External): Positive for: Atraumatic Nose (Internal): Positive for: Normal Inspection Neck: Positive for: Normal Range of Motion Respiratory/Chest: Positive for: Rhonchi Cardiovascular: Positive for: Regular Rate and Rhythm Abdomen: Positive for: Normal Bowel Sounds, Other (morbid obesity) Neurological: Positive for: Other (on ventilator) - Medications Active Medications: Active Medications Generic Name Dose Route Start Last Admin Trade Name Freq PRN Reason Stop Dose Admin Acetaminophen 650 mg 11/25/18 22:27 12/06/18 21:17 Tylenol 325mg Tab PO 650 mg Q6H PRN Administration Pain (1-10) Acetaminophen 650 mg 11/25/18 22:27 11/28/18 06:07 Tylenol 325mg Tab PO 650 mg Q6H PRN Administration Fever >100.4 F Acetaminophen 160 mg 12/01/18 10:36 Tylenol 160mg/5ml Oral Soln PO ONCE PRN Flu symptoms Albuterol/Ipratropium 3 ml 12/01/18 14:00 12/08/18 13:38 Duoneb 3 Mg/0.5 Mg (3 Ml) Ud INH 3 ml RQ6 PINKY Administration Atorvastatin Calcium 40 mg 11/26/18 09:00 12/08/18 08:05 Lipitor PO 40 mg DAILY PINKY Administration Dimethicone 1 applic 11/26/18 17:00 12/08/18 08:21 Proshield Plus Skin Protectant TOP 1 applic Q8 PINKY Administration Furosemide 100 mg/ Sodium 100 mls @ 10 mls/hr 12/03/18 11:45 12/08/18 05:27 Chloride IV 10 mls/hr .Q10H PINKY Administration Protocol 10 MG/HR Aztreonam 1 gm/ Sodium 100 mls @ 100 mls/hr 12/06/18 21:00 12/08/18 08:03 Chloride IVPB 100 mls/hr Q12 PINKY Administration Protocol Linezolid 600 mg in 300 mls @ 300 mls/hr 12/06/18 21:00 12/08/18 08:24 Zyvox 600mg/300ml D5w IVPB 300 mls/hr Q12 PINKY Administration Protocol Heparin Sodium/Dextrose 25,000 units in 250 mls @ 18 mls/hr 12/07/18 15:15 12/08/18 08:10 Heparin 25,000 Units/250ml In D5w IV 12/08/18 18:59 19 mls/hr .[id number] PINKY Titration Protocol Micafungin Sodium 100 mg/ 100 mls @ 100 mls/hr 12/08/18 12:30 Sodium Chloride IVPB DAILY PINKY Protocol Metoprolol Tartrate 12.5 mg 12/01/18 21:00 12/08/18 09:51 Lopressor PO 12.5 mg Q12 PINKY Administration Morphine Sulfate 4 mg 12/04/18 08:48 12/08/18 05:29 Morphine IVP 4 mg Q4 PRN Administration Agitation Nystatin 1 applic 11/26/18 17:00 12/08/18 12:20 Nystop Topical Powder TOP 1 applic TID PINKY Administration Pantoprazole Sodium 40 mg 12/07/18 11:45 12/08/18 08:22 Protonix Inj IVP 40 mg Q12 PINKY Administration - Patient Studies Lab Studies: Microbiology Studies 12/06/18 16:54 Gram Stain - Final Trachasp Sputum Culture - Final Yeast Species 12/06/18 17:26 Urine Culture - Final Urine,Catheterized Yeast Species 12/02/18 15:59 Blood Culture - Final Blood-Thru Central Line NO GROWTH AFTER 5 DAYS Gram Stain - Final TEST NOT PERFORMED Lab Studies 12/08/18 12/08/18 12/08/18 Range/Units 12:52 04:58 04:30 WBC 13.6 H (4.8-10.8) K/uL RBC 2.48 L (3.80-5.20) Mil/uL Hgb 7.9 L (12.0-16.0) g/dL Hct 23.1 L (34.0-47.0) % MCV 93.3 (81.0-99.0) fl MCH 31.8 H (27.0-31.0) pg MCHC 34.1 (33.0-37.0) g/dL RDW 14.8 H (11.5-14.5) % Plt Count 326 (130-400) K/uL PT (9.8-13.1) Seconds INR APTT (25.6-37.1) Seconds pCO2 52 H 52 H (35-45) mm/Hg pO2 77 L 83 (80-100) mm/Hg HCO3 26.5 23.1 (21-28) mmol/L ABG pH 7.34 L 7.29 L (7.35-7.45) ABG Total CO2 29.7 H 26.6 (22-28) mmol/L ABG O2 Saturation 100.2 H 100.3 H (95-98) % ABG Base Excess 2.0 -2.3 L (-2.0-3.0) mmol/L Juanito Test Yes Yes ABG Potassium 4.0 3.8 (3.6-5.2) mmol/L A-a O2 Difference 143.0 137.0 mm/Hg Glucose 117 H 106 H (65-105) mg/dL Lactate 0.5 L 0.5 L (0.7-2.1) mmol/L Vent Mode A/c Mechanical Rate 10 FiO2 40.0 40.0 % Tidal Volume 450 PEEP 5 5 CPAP 10 Sodium 134.0 134.0 (132-148) mmol/l Potassium (3.6-5.0) MMOL/L Chloride 103.0 104.0 (98-107) mmol/L Carbon Dioxide (22-30) mmol/L Anion Gap (10-20) BUN (7-17) mg/dl Creatinine (0.7-1.2) mg/dl Est GFR ( Amer) Est GFR (Non-Af Amer) Random Glucose (65-105) mg/dL Calcium (8.4-10.2) mg/dL Arterial Blood Potassium 4.0 3.8 (3.6-5.2) mmol/L Urine Eosinophils (NEGATIVE) VZV IgG Antibody (POSITIVE) 12/08/18 12/08/18 12/07/18 Range/Units 04:30 04:30 13:52 WBC (4.8-10.8) K/uL RBC (3.80-5.20) Mil/uL Hgb (12.0-16.0) g/dL Hct (34.0-47.0) % MCV (81.0-99.0) fl MCH (27.0-31.0) pg MCHC (33.0-37.0) g/dL RDW (11.5-14.5) % Plt Count (130-400) K/uL PT 11.8 (9.8-13.1) Seconds INR 1.0 APTT 36.4 (25.6-37.1) Seconds pCO2 (35-45) mm/Hg pO2 (80-100) mm/Hg HCO3 (21-28) mmol/L ABG pH (7.35-7.45) ABG Total CO2 (22-28) mmol/L ABG O2 Saturation (95-98) % ABG Base Excess (-2.0-3.0) mmol/L Juanito Test ABG Potassium (3.6-5.2) mmol/L A-a O2 Difference mm/Hg Glucose (65-105) mg/dL Lactate (0.7-2.1) mmol/L Vent Mode Mechanical Rate FiO2 % Tidal Volume PEEP CPAP Sodium 136 (132-148) mmol/l Potassium 4.0 (3.6-5.0) MMOL/L Chloride 101 (98-107) mmol/L Carbon Dioxide 28 (22-30) mmol/L Anion Gap 11 (10-20) BUN 60 H (7-17) mg/dl Creatinine 3.5 H (0.7-1.2) mg/dl Est GFR ( Amer) 16 Est GFR (Non-Af Amer) 13 Random Glucose 97 (65-105) mg/dL Calcium 8.5 (8.4-10.2) mg/dL Arterial Blood Potassium (3.6-5.2) mmol/L Urine Eosinophils Positive H (NEGATIVE) VZV IgG Antibody (POSITIVE) 12/06/18 Range/Units 16:40 WBC (4.8-10.8) K/uL RBC (3.80-5.20) Mil/uL Hgb (12.0-16.0) g/dL Hct (34.0-47.0) % MCV (81.0-99.0) fl MCH (27.0-31.0) pg MCHC (33.0-37.0) g/dL RDW (11.5-14.5) % Plt Count (130-400) K/uL PT (9.8-13.1) Seconds INR APTT (25.6-37.1) Seconds pCO2 (35-45) mm/Hg pO2 (80-100) mm/Hg HCO3 (21-28) mmol/L ABG pH (7.35-7.45) ABG Total CO2 (22-28) mmol/L ABG O2 Saturation (95-98) % ABG Base Excess (-2.0-3.0) mmol/L Juanito Test ABG Potassium (3.6-5.2) mmol/L A-a O2 Difference mm/Hg Glucose (65-105) mg/dL Lactate (0.7-2.1) mmol/L Vent Mode Mechanical Rate FiO2 % Tidal Volume PEEP CPAP Sodium (132-148) mmol/l Potassium (3.6-5.0) MMOL/L Chloride (98-107) mmol/L Carbon Dioxide (22-30) mmol/L Anion Gap (10-20) BUN (7-17) mg/dl Creatinine (0.7-1.2) mg/dl Est GFR ( Amer) Est GFR (Non-Af Amer) Random Glucose (65-105) mg/dL Calcium (8.4-10.2) mg/dL Arterial Blood Potassium (3.6-5.2) mmol/L Urine Eosinophils (NEGATIVE) VZV IgG Antibody Positive (POSITIVE) Laboratory Results - last 24 hr 12/06/18 12/07/18 12/08/18 16:40 13:52 04:30 WBC RBC Hgb Hct MCV MCH MCHC RDW Plt Count PT 11.8 INR 1.0 APTT 36.4 pCO2 pO2 HCO3 ABG pH ABG Total CO2 ABG O2 Saturation ABG Base Excess Juanito Test ABG Potassium A-a O2 Difference Glucose Lactate Vent Mode Mechanical Rate FiO2 Tidal Volume PEEP CPAP Sodium Potassium Chloride Carbon Dioxide Anion Gap BUN Creatinine Est GFR ( Amer) Est GFR (Non-Af Amer) Random Glucose Calcium Arterial Blood Potassium Urine Eosinophils Positive H VZV IgG Antibody Positive 12/08/18 12/08/18 12/08/18 04:30 04:30 04:58 WBC 13.6 H RBC 2.48 L Hgb 7.9 L Hct 23.1 L MCV 93.3 MCH 31.8 H MCHC 34.1 RDW 14.8 H Plt Count 326 PT INR APTT pCO2 52 H pO2 83 HCO3 23.1 ABG pH 7.29 L ABG Total CO2 26.6 ABG O2 Saturation 100.3 H ABG Base Excess -2.3 L Juanito Test Yes ABG Potassium 3.8 A-a O2 Difference 137.0 Glucose 106 H Lactate 0.5 L Vent Mode A/c Mechanical Rate 10 FiO2 40.0 Tidal Volume 450 PEEP 5 CPAP Sodium 136 134.0 Potassium 4.0 Chloride 101 104.0 Carbon Dioxide 28 Anion Gap 11 BUN 60 H Creatinine 3.5 H Est GFR ( Amer) 16 Est GFR (Non-Af Amer) 13 Random Glucose 97 Calcium 8.5 Arterial Blood Potassium 3.8 Urine Eosinophils VZV IgG Antibody 12/08/18 12:52 WBC RBC Hgb Hct MCV MCH MCHC RDW Plt Count PT INR APTT pCO2 52 H pO2 77 L HCO3 26.5 ABG pH 7.34 L ABG Total CO2 29.7 H ABG O2 Saturation 100.2 H ABG Base Excess 2.0 Juanito Test Yes ABG Potassium 4.0 A-a O2 Difference 143.0 Glucose 117 H Lactate 0.5 L Vent Mode Mechanical Rate FiO2 40.0 Tidal Volume PEEP 5 CPAP 10 Sodium 134.0 Potassium Chloride 103.0 Carbon Dioxide Anion Gap BUN Creatinine Est GFR ( Amer) Est GFR (Non-Af Amer) Random Glucose Calcium Arterial Blood Potassium 4.0 Urine Eosinophils VZV IgG Antibody Radiology Impressions: Radiology Impressions Chest X-Ray 12/07/18 20:10 IMPRESSION: Tip of enteric tube not well visualized due to underpenetration. Otherwise, stable tubes and lines. Stable pulmonary vascular congestion. Stable right midlung patchy infiltrate. No significant interval change. Chest X-Ray 12/08/18 05:00 IMPRESSION: Orogastric tube with tip in the stomach. Otherwise, stable tubes and lines. Stable pulmonary vascular congestion. Stable patchy right midlung infiltrate and linear left midlung atelectasis. Assessment/Plan (1) Acute hypoxemic respiratory failure Current Visit: Yes Status: Acute Priority: High Comment: Continue with ICU care for hemodynamic and Respiratory monitoring Wean off FIO2 Vent weaning in progress She was placed on CPAP, with PS trial in AM and tolerating so far The plan for possible extubation today Aggressive pulmonary toilet, chest PT, suctioning Maintain aspiration precautions Continue Antibiotics Continue IV Zyvox and Azactam Continue nebulizer treatment (2) Acute pulmonary edema Current Visit: Yes Status: Acute Priority: High (3) CAP (community acquired pneumonia) Current Visit: Yes Status: Acute Priority: High Comment: Continue Antibiotics Continue IV Zyvox and Azactam Continue nebulizer treatment Pulmonary & ID consult appreciated (4) NSTEMI (non-ST elevated myocardial infarction) Current Visit: Yes Status: Acute Priority: High Comment: Optimize fluid status Patient on Heparin and Lasix drip Other management as per cardiology (5) Morbid obesity Current Visit: Yes Status: Acute Priority: High (6) Anemia Current Visit: Yes Status: Acute Priority: High - Assessment and Plan (Free Text) Assessment: # HOB maintained at 30 degrees. # GI/DVT PPX # Stress Ulcer prophylaxis with Pantoprazole 40 mg IVP Q12 # DVT prophylaxis with SCD, Heparin drip # Code Status: Full code Total critical care time 44 minutes
--- NOTE | 2018-12-08 15:03 | PCM.PROC ---
Procedures Attestation:: I certify that I have explained the specified Operation(s) or Procedure(s), risks, benefits and reasonable alternatives to the Patient and/or other person responsible. The opportunity was given to ask questions and all questions answered - Extubation Clinical Parameters: Resolution/Stabilization of disease process, Hemodynamically Stable, Intact Cough/Gag Reflex, Spontaneous Respirations, Acceptable Vent Settings (FIO2<50%, PEEP<8, PaO2>75, pH>7.25) Weaning Criteria Met: Yes General Weaning Approaches: Pressure Support Ventilation (PSV) Weaning Patient Condition: Patient has been successfully extubated and assessed Oxygen Therapy: Bipap Patient Tolerated Procedure: Well, No Complications
[2018-12-08 15:28] LABS: PROTHROMBIN TIME 11.9 Seconds (9.8-13.1)
[2018-12-08 15:31] LABS: PARTIAL THROMBOPLASTIN TIME 45.1 Seconds (25.6-37.1)
[2018-12-08] MEDS: Micafungin 100 MG in Sodium Chloride 0.9% 100 ML IVPB SCH (16:19)
--- NOTE | 2018-12-08 18:36 | CP.PCM.PN ---
Subjective - Date & Time of Evaluation Date of Evaluation: 12/08/18 Time of Evaluation: 12:30 - Subjective Subjective: Patient extubated later today; was off sedation at time of encounter, tolerating CPAP; Objective - Vital Signs/Intake and Output Vital Signs (last 24 hours): Temp Pulse Resp BP Pulse Ox 96.9 F L 88 13 107/53 L 100 12/08/18 16:00 12/08/18 18:00 12/08/18 18:00 12/08/18 18:00 12/08/18 18:00 Intake and Output: 12/08/18 12/08/18 06:59 18:59 Intake Total 1793 1286 Output Total 2900 500 Balance -1107 786 - Medications Medications: Current Medications Acetaminophen (Tylenol 325mg Tab) 650 mg PO Q6H PRN PRN Reason: Pain (1-10) Last Admin: 12/06/18 21:17 Dose: 650 mg Acetaminophen (Tylenol 325mg Tab) 650 mg PO Q6H PRN PRN Reason: Fever >100.4 F Last Admin: 11/28/18 06:07 Dose: 650 mg Acetaminophen (Tylenol 160mg/5ml Oral Soln) 160 mg PO ONCE PRN PRN Reason: Flu symptoms Albuterol/Ipratropium (Duoneb 3 Mg/0.5 Mg (3 Ml) Ud) 3 ml INH RQ6 PINKY Last Admin: 12/08/18 13:38 Dose: 3 ml Atorvastatin Calcium (Lipitor) 40 mg PO DAILY PINKY Last Admin: 12/08/18 08:05 Dose: 40 mg Dimethicone (Proshield Plus Skin Protectant) 1 applic TOP Q8 PINKY Last Admin: 12/08/18 16:20 Dose: 1 applic Furosemide 100 mg/ Sodium (Chloride) 100 mls @ 10 mls/hr IV .Q10H PINKY; Protocol Last Admin: 12/08/18 05:27 Dose: 10 mls/hr Aztreonam 1 gm/ Sodium (Chloride) 100 mls @ 100 mls/hr IVPB Q12 PINKY; Protocol Last Admin: 12/08/18 08:03 Dose: 100 mls/hr Linezolid (Zyvox 600mg/300ml D5w) 600 mg in 300 mls @ 300 mls/hr IVPB Q12 PINKY; Protocol Last Admin: 12/08/18 08:24 Dose: 300 mls/hr Heparin Sodium/Dextrose (Heparin 25,000 Units/250ml In D5w) 25,000 units in 250 mls @ 18 mls/hr IV .[id number] [facility]; Protocol Stop: 12/08/18 18:59 Last Titration: 12/08/18 08:10 Dose: 19 mls/hr Micafungin Sodium 100 mg/ (Sodium Chloride) 100 mls @ 100 mls/hr IVPB DAILY [facility]; Protocol Last Admin: 12/08/18 16:19 Dose: 100 mls/hr Metoprolol Tartrate (Lopressor) 12.5 mg PO Q12 [facility] Last Admin: 12/08/18 09:51 Dose: 12.5 mg Morphine Sulfate (Morphine) 4 mg IVP Q4 PRN PRN Reason: Agitation Last Admin: 12/08/18 05:29 Dose: 4 mg Nystatin (Nystop Topical Powder) 1 applic TOP TID [facility] Last Admin: 12/08/18 16:19 Dose: 1 applic Pantoprazole Sodium (Protonix Inj) 40 mg IVP Q12 [facility] Last Admin: 12/08/18 08:22 Dose: 40 mg - Labs Labs: 12/08/18 04:30 12/08/18 04:30 PT 11.9 Seconds (9.8-13.1) 12/08/18 14:05 INR 1.0 12/08/18 14:05 APTT 45.1 Seconds (25.6-37.1) H 12/08/18 14:05 - Constitutional Appears: Non-toxic, No Acute Distress - Eye Exam Eye Exam: Normal appearance - Respiratory Exam Respiratory Exam: absent: Respiratory Distress Additional comments: mild wheezes - Cardiovascular Exam Cardiovascular Exam: RRR, +S1, +S2. absent: Gallop, Rubs - GI/Abdominal Exam GI & Abdominal Exam: Soft. absent: Distended - Extremities Exam Additional comments: improved edema of UE; no significant lower ext edema; - Neurological Exam Neurological Exam: Alert, Awake - Psychiatric Exam Psychiatric exam: absent: Agitated - Skin Skin Exam: Warm. absent: Cyanosis Additional comments: still with rash over legs Assessment and Plan (1) Renal failure, acute Assessment & Plan: ATN, with possible superimposed AIN (cannot confirm without renal biopsy but marked pyuria and eosinophils in urine, offending drug also unclear, PPI possibility); non-oliguric renal failure; holding HD and lasix drip today to assess renal function tomorrow; otherwise stable electrolyte status and FIO2 requirement; -avoid nephrotoxic agents; -will assess for need for further HD tomorrow; Status: Acute (2) Acute hypoxemic respiratory failure Status: Acute (3) Anemia Status: Acute (4) Hypotension Status: Acute (5) Sepsis Assessment & Plan: Growing yeast in tracheal culture and urine, started on micafungin, no renal dose adjustment required; Status: Acute
[2018-12-08 21:34] LABS: PROTHROMBIN TIME 11.6 Seconds (9.8-13.1)
[2018-12-08 21:36] LABS: PARTIAL THROMBOPLASTIN TIME 44.1 Seconds (25.6-37.1)
--- NOTE | 2018-12-08 22:54 | CP.PCM.CON ---
History of Present Illness - History of Present Illness History of Present Illness: Extubated Past Patient History - Past Medical History & Family History Past Medical History?: Yes - Past Social History Smoking Status: Heavy Smoker > 10 Cigarettes Daily - CARDIAC Hx Congestive Heart Failure: Yes Hx Hypertension: Yes Other/Comment: AVR - PULMONARY Hx Chronic Obstructive Pulmonary Disease (COPD): Yes (possible) - NEUROLOGICAL Hx Neurological Disorder: No - HEENT Hx HEENT Problems: No - RENAL Hx Chronic Kidney Disease: No - ENDOCRINE/METABOLIC Hx Endocrine Disorders: No - HEMATOLOGICAL/ONCOLOGICAL Hx Blood Disorders: No Hx Human Immunodeficiency Virus (HIV): No - INTEGUMENTARY Hx Dermatological Problems: No - MUSCULOSKELETAL/RHEUMATOLOGICAL Hx Falls: No - GASTROINTESTINAL Hx Gastrointestinal Disorders: No Other/Comment: gastric bypass-gastric band. >morbid obesity - GENITOURINARY/GYNECOLOGICAL Hx Genitourinary Disorders: No - PSYCHIATRIC Hx Substance Use: No - SURGICAL HISTORY Hx Gastric Bypass Surgery: Yes Hx Valve Replacement: Yes (aortic) - ANESTHESIA Hx Anesthesia: Yes Hx Anesthesia Reactions: No Hx Malignant Hyperthermia: No Has any member of the family had a problem w/ anesthesia?: No Meds Allergies/Adverse Reactions: Allergies Allergy/AdvReac Type Severity Reaction Status Date / Time No Known Allergies Allergy Verified 11/25/18 20:03 - Medications Medications: Current Medications Acetaminophen (Tylenol 325mg Tab) 650 mg PO Q6H PRN PRN Reason: Pain (1-10) Last Admin: 12/06/18 21:17 Dose: 650 mg Acetaminophen (Tylenol 325mg Tab) 650 mg PO Q6H PRN PRN Reason: Fever >100.4 F Last Admin: 11/28/18 06:07 Dose: 650 mg Acetaminophen (Tylenol 160mg/5ml Oral Soln) 160 mg PO ONCE PRN PRN Reason: Flu symptoms Albuterol/Ipratropium (Duoneb 3 Mg/0.5 Mg (3 Ml) Ud) 3 ml INH RQ6 PINKY Last Admin: 12/08/18 19:48 Dose: 3 ml Atorvastatin Calcium (Lipitor) 40 mg PO DAILY PINKY Last Admin: 12/08/18 08:05 Dose: 40 mg Dimethicone (Proshield Plus Skin Protectant) 1 applic TOP Q8 PINKY Last Admin: 12/08/18 16:20 Dose: 1 applic Furosemide 100 mg/ Sodium (Chloride) 100 mls @ 10 mls/hr IV .Q10H [facility]; Protocol Last Admin: 12/08/18 05:27 Dose: 10 mls/hr Aztreonam 1 gm/ Sodium (Chloride) 100 mls @ 100 mls/hr IVPB Q12 [facility]; Protocol Last Admin: 12/08/18 20:50 Dose: 100 mls/hr Linezolid (Zyvox 600mg/300ml D5w) 600 mg in 300 mls @ 300 mls/hr IVPB Q12 [facility]; Protocol Last Admin: 12/08/18 20:50 Dose: 300 mls/hr Micafungin Sodium 100 mg/ (Sodium Chloride) 100 mls @ 100 mls/hr IVPB DAILY [facility]; Protocol Last Admin: 12/08/18 16:19 Dose: 100 mls/hr Furosemide 100 mg/ Sodium (Chloride) 100 mls @ 10 mls/hr IV .Q10H [facility]; Protocol Heparin Sodium/Dextrose (Heparin 25,000 Units/250ml In D5w) 25,000 units in 250 mls @ 19 mls/hr IV .[id number] [facility]; Protocol Metoprolol Tartrate (Lopressor) 12.5 mg PO Q12 [facility] Last Admin: 12/08/18 20:51 Dose: Not Given Morphine Sulfate (Morphine) 4 mg IVP Q4 PRN PRN Reason: Agitation Last Admin: 12/08/18 05:29 Dose: 4 mg Nystatin (Nystop Topical Powder) 1 applic TOP TID [facility] Last Admin: 12/08/18 16:19 Dose: 1 applic Pantoprazole Sodium (Protonix Inj) 40 mg IVP Q12 [facility] Last Admin: 12/08/18 20:51 Dose: 40 mg Physical Exam - Head Exam Head Exam: ATRAUMATIC - Eye Exam Eye Exam: Normal appearance - ENT Exam ENT Exam: Mucous Membranes Dry - Respiratory Exam Respiratory Exam: Decreased Breath Sounds - Cardiovascular Exam Cardiovascular Exam: +S1, +S2 - GI/Abdominal Exam GI & Abdominal Exam: Normal Bowel Sounds Results - Vital Signs Recent Vital Signs: Last Vital Signs Temp 98.8 F 12/08/18 20:00 Pulse 87 12/08/18 22:00 Resp 21 12/08/18 22:00 BP 117/57 L 12/08/18 22:00 Pulse Ox 100 12/08/18 22:00 - Labs Result Diagrams: 12/08/18 04:30 12/08/18 04:30 Labs: Laboratory Results - last 24 hr 12/06/18 12/08/18 12/08/18 16:40 04:30 04:30 WBC RBC Hgb Hct MCV MCH MCHC RDW Plt Count PT 11.8 INR 1.0 APTT 36.4 pCO2 pO2 HCO3 ABG pH ABG Total CO2 ABG O2 Saturation ABG Base Excess Juanito Test ABG Potassium A-a O2 Difference Glucose Lactate Vent Mode Mechanical Rate FiO2 Tidal Volume PEEP CPAP Sodium 136 Potassium 4.0 Chloride 101 Carbon Dioxide 28 Anion Gap 11 BUN 60 H Creatinine 3.5 H Est GFR ( Amer) 16 Est GFR (Non-Af Amer) 13 Random Glucose 97 Calcium 8.5 Arterial Blood Potassium VZV IgM Antibody <=0.90 12/08/18 12/08/18 12/08/18 04:30 04:58 12:52 WBC 13.6 H RBC 2.48 L Hgb 7.9 L Hct 23.1 L MCV 93.3 MCH 31.8 H MCHC 34.1 RDW 14.8 H Plt Count 326 PT INR APTT pCO2 52 H 52 H pO2 83 77 L HCO3 23.1 26.5 ABG pH 7.29 L 7.34 L ABG Total CO2 26.6 29.7 H ABG O2 Saturation 100.3 H 100.2 H ABG Base Excess -2.3 L 2.0 Juanito Test Yes Yes ABG Potassium 3.8 4.0 A-a O2 Difference 137.0 143.0 Glucose 106 H 117 H Lactate 0.5 L 0.5 L Vent Mode A/c Mechanical Rate 10 FiO2 40.0 40.0 Tidal Volume 450 PEEP 5 5 CPAP 10 Sodium 134.0 134.0 Potassium Chloride 104.0 103.0 Carbon Dioxide Anion Gap BUN Creatinine Est GFR ( Amer) Est GFR (Non-Af Amer) Random Glucose Calcium Arterial Blood Potassium 3.8 4.0 VZV IgM Antibody 12/08/18 12/08/18 14:05 21:24 WBC RBC Hgb Hct MCV MCH MCHC RDW Plt Count PT 11.9 11.6 INR 1.0 1.0 APTT 45.1 H 44.1 H pCO2 pO2 HCO3 ABG pH ABG Total CO2 ABG O2 Saturation ABG Base Excess Juanito Test ABG Potassium A-a O2 Difference Glucose Lactate Vent Mode Mechanical Rate FiO2 Tidal Volume PEEP CPAP Sodium Potassium Chloride Carbon Dioxide Anion Gap BUN Creatinine Est GFR ( Amer) Est GFR (Non-Af Amer) Random Glucose Calcium Arterial Blood Potassium VZV IgM Antibody Assessment & Plan (1) Anemia Assessment and Plan: H/H improving GI blood loss - remains on heparin drip given mechanical AVR anemia of chronic disease transfusion support PRN Status: Acute Priority: High (2) Coagulopathy Assessment and Plan: multifactorial anticoagulation and nutritional s/p vit k which will improve vit k dependent factors and help with hemostasis remains on heparin drip Status: Acute (3) Leukocytosis Assessment and Plan: improving with antibiotics Status: Acute
[2018-12-09] MEDS: Proshield Plus GEL TOP SCH ×3 (01:00→16:26)
[2018-12-09] MEDS: Albuterol-Ipratrop 3 mg / 0.5 (3 ml) UD INH SCH ×4 (01:05→19:37)
[2018-12-09 06:09] LABS: ABG ALLEN TEST YES; ARTERIAL BLOOD GAS HCO3 24.7 mmol/L (21-28); ARTERIAL BLOOD GAS HEMOGLOBIN 7.6 g/dL (11.7-17.4); ARTERIAL BLOOD GAS O2 CAPACITY 10.4 mL/dL (16-24); ARTERIAL BLOOD GAS O2 CONTENT 10.5 ML/dL (15-23); ARTERIAL BLOOD GAS O2 SAT 100.9 % (95-98); ARTERIAL BLOOD GAS PCO2 49 mm/Hg (35-45); ARTERIAL BLOOD GAS PH 7.33 (7.35-7.45); ARTERIAL BLOOD GAS PO2 105 mm/Hg (80-100); ARTERIAL BLOOD GAS TCO2 27.3 mmol/L (22-28)
[2018-12-09 06:17] LABS: HEMOGLOBIN 7.4 g/dL (12.0-16.0); MEAN CELL VOLUME 94.4 fl (81.0-99.0); MEAN CORPUSCULAR HEMOGLOBIN 31.6 pg (27.0-31.0); MEAN CORPUSCULAR HGB CONC 33.5 g/dL (33.0-37.0); RBC 2.34 Mil/uL (3.80-5.20); RED CELL DISTRIBUTION WIDTH 14.4 % (11.5-14.5); WHITE BLOOD COUNT 11.6 K/uL (4.8-10.8)
[2018-12-09 06:28] LABS: CALCIUM 8.5 mg/dL (8.4-10.2)
--- NOTE | 2018-12-09 07:31 | CP.PCM.PN ---
<Hebert Alberto - Last Filed: 12/09/18 11:07> Subjective - Date & Time of Evaluation Date of Evaluation: 12/09/18 Time of Evaluation: 07:30 - Subjective Subjective: Pt seen and examined at bedside recieving duoneb treatment. Pt tolerating BIPAP, well. She is more alert and vocal today. Reports improvement in breathing. Denies acute overnight events or SOB. Reports hunger. Objective - Vital Signs/Intake and Output Vital Signs (last 24 hours): Temp Pulse Resp BP Pulse Ox 99.8 F H 97 H 17 110/62 100 12/09/18 04:00 12/09/18 06:00 12/09/18 06:00 12/09/18 06:00 12/09/18 06:00 Intake and Output: 12/09/18 12/09/18 06:59 18:59 Intake Total 678 Balance 678 - Medications Medications: Current Medications Acetaminophen (Tylenol 325mg Tab) 650 mg PO Q6H PRN PRN Reason: Pain (1-10) Last Admin: 12/06/18 21:17 Dose: 650 mg Acetaminophen (Tylenol 325mg Tab) 650 mg PO Q6H PRN PRN Reason: Fever >100.4 F Last Admin: 11/28/18 06:07 Dose: 650 mg Acetaminophen (Tylenol 160mg/5ml Oral Soln) 160 mg PO ONCE PRN PRN Reason: Flu symptoms Albuterol/Ipratropium (Duoneb 3 Mg/0.5 Mg (3 Ml) Ud) 3 ml INH RQ6 [facility] Last Admin: 12/09/18 01:05 Dose: 3 ml Atorvastatin Calcium (Lipitor) 40 mg PO DAILY [facility] Last Admin: 12/08/18 08:05 Dose: 40 mg Dimethicone (Proshield Plus Skin Protectant) 1 applic TOP Q8 [facility] Last Admin: 12/09/18 01:00 Dose: 1 applic Furosemide 100 mg/ Sodium (Chloride) 100 mls @ 10 mls/hr IV .Q10H [facility]; Protocol Last Admin: 12/08/18 05:27 Dose: 10 mls/hr Aztreonam 1 gm/ Sodium (Chloride) 100 mls @ 100 mls/hr IVPB Q12 [facility]; Protocol Last Admin: 12/08/18 20:50 Dose: 100 mls/hr Linezolid (Zyvox 600mg/300ml D5w) 600 mg in 300 mls @ 300 mls/hr IVPB Q12 [facility]; Protocol Last Admin: 12/08/18 20:50 Dose: 300 mls/hr Micafungin Sodium 100 mg/ (Sodium Chloride) 100 mls @ 100 mls/hr IVPB DAILY [facility]; Protocol Last Admin: 12/08/18 16:19 Dose: 100 mls/hr Furosemide 100 mg/ Sodium (Chloride) 100 mls @ 10 mls/hr IV .Q10H [facility]; Protocol Last Admin: 12/08/18 22:30 Dose: 10 mls/hr Heparin Sodium/Dextrose (Heparin 25,000 Units/250ml In D5w) 25,000 units in 250 mls @ 19 mls/hr IV .[id number] [facility]; Protocol Last Admin: 12/08/18 22:00 Dose: 19 mls/hr Metoprolol Tartrate (Lopressor) 12.5 mg PO Q12 [facility] Last Admin: 12/08/18 20:51 Dose: Not Given Morphine Sulfate (Morphine) 4 mg IVP Q4 PRN PRN Reason: Agitation Last Admin: 12/08/18 05:29 Dose: 4 mg Nystatin (Nystop Topical Powder) 1 applic TOP TID [facility] Last Admin: 12/08/18 16:19 Dose: 1 applic Pantoprazole Sodium (Protonix Inj) 40 mg IVP Q12 [facility] Last Admin: 12/08/18 20:51 Dose: 40 mg - Labs Labs: 12/09/18 04:00 12/09/18 04:00 PT 11.6 Seconds (9.8-13.1) 12/08/18 21:24 INR 1.0 12/08/18 21:24 APTT 49.0 Seconds (25.6-37.1) H 12/09/18 04:00 - Constitutional Appears: No Acute Distress - Eye Exam Eye Exam: EOMI - Respiratory Exam Respiratory Exam: Wheezes (Mild inspiratory and expiratory wheezinging throughout.). absent: Chest Wall Tenderness, Respiratory Distress - Cardiovascular Exam Cardiovascular Exam: +S1, +S2 - GI/Abdominal Exam GI & Abdominal Exam: Distended, Soft, Normal Bowel Sounds. absent: Tenderness - Extremities Exam Extremities Exam: absent: Calf Tenderness - Neurological Exam Neurological Exam: Alert, Awake - Psychiatric Exam Psychiatric exam: Normal Affect, Normal Mood Assessment and Plan (1) Respiratory failure with hypoxia and hypercapnia Status: Acute (2) Influenza A Status: Acute (3) Pneumonia and influenza Status: Acute (4) Morbid obesity Status: Chronic (5) COPD (chronic obstructive pulmonary disease) Status: Suspected - Assessment and Plan (Free Text) Assessment: 58 yo F with pmhx of HTN, COPD, hx of aortic valve replacement and morbid obesity admitted for respiratory failure with hypoxia and hypercapnia, Influenza A, Pneumonia and NSTEMI Plan: Pt extubated yesterday and tolerating BIPAP. c/w: duonebs c/w: abx per ID recs appreciated BUN/Cr: elevated; previously benefitted from HD and lasix. Currently able to produce urine. [place]: pending official read Monitor for desaturation, respiratory distress. Case and plan d/w Dr. Snow Alberto MD PGY-2 <Froylan Adamson - Last Filed: 12/11/18 07:35> Subjective - Subjective Subjective: The patient was seen by the resident on rounds in the ICU. Case was discussed with the superintendent recreation and the resident. Interim events were reviewed, labs and x-rays as well. Plan of care was formulated and agreed upon. The EMR entry by the resident is an accurate summation of this process. Objective - Vital Signs/Intake and Output Vital Signs (last 24 hours): Temp Pulse Resp BP Pulse Ox 98.9 F 106 H 23 117/74 96 12/10/18 20:00 12/10/18 22:00 12/10/18 22:00 12/10/18 22:00 12/10/18 22:00 Intake and Output: 12/10/18 12/11/18 23:59 11:59 Intake Total 1108 288 Output Total 1999 150 Balance -892 138 - Medications Medications: Current Medications Acetaminophen (Tylenol 160mg/5ml Oral Soln) 160 mg PO ONCE PRN PRN Reason: Flu symptoms Acetylcysteine (Acetylcysteine 20%) 2 ml INH DAILY [facility] Last Admin: 12/10/18 13:14 Dose: 2 ml Albuterol/Ipratropium (Duoneb 3 Mg/0.5 Mg (3 Ml) Ud) 3 ml INH RQ6 [facility] Last Admin: 12/11/18 01:15 Dose: 3 ml Atorvastatin Calcium (Lipitor) 40 mg PO DAILY [facility] Last Admin: 12/10/18 08:24 Dose: 40 mg Dimethicone (Proshield Plus Skin Protectant) 1 applic TOP Q8 [facility] Last Admin: 12/11/18 01:45 Dose: 1 applic Aztreonam 1 gm/ Sodium (Chloride) 100 mls @ 100 mls/hr IVPB Q12 [facility]; Protocol Last Admin: 12/10/18 21:42 Dose: 100 mls/hr Linezolid (Zyvox 600mg/300ml D5w) 600 mg in 300 mls @ 300 mls/hr IVPB Q12 [facility]; Protocol Last Admin: 12/10/18 21:42 Dose: 300 mls/hr Micafungin Sodium 100 mg/ (Sodium Chloride) 100 mls @ 100 mls/hr IVPB DAILY [facility]; Protocol Last Admin: 12/10/18 08:07 Dose: 100 mls/hr Heparin Sodium/Dextrose (Heparin 25,000 Units/250ml In D5w) 25,000 units in 250 mls @ 19 mls/hr IV .[id number] [facility]; Protocol Last Admin: 12/10/18 12:58 Dose: 19 mls/hr Metoprolol Tartrate (Lopressor) 12.5 mg PO Q12 [facility] Last Admin: 12/10/18 21:43 Dose: 12.5 mg Morphine Sulfate (Morphine) 4 mg IVP Q4 PRN PRN Reason: Agitation Last Admin: 12/10/18 02:10 Dose: 4 mg Nystatin (Nystop Topical Powder) 1 applic TOP TID [facility] Last Admin: 12/10/18 18:35 Dose: 1 applic Pantoprazole Sodium (Protonix Inj) 40 mg IVP Q12 [facility] Last Admin: 12/10/18 21:43 Dose: 40 mg - Labs Labs: 12/11/18 05:20 12/11/18 05:20 PT 12.0 Seconds (9.8-13.1) 12/09/18 10:30 INR 1.1 12/09/18 10:30 APTT 46.0 Seconds (25.6-37.1) H 12/11/18 06:54 Assessment and Plan (1) Respiratory failure with hypoxia and hypercapnia Status: Acute (2) Influenza A Status: Acute (3) Pneumonia and influenza Status: Acute (4) Morbid obesity Status: Chronic (5) COPD (chronic obstructive pulmonary disease) Status: Suspected
[2018-12-09] MEDS: Aztreonam 1 GM in Sodium Chloride 0.9% 100 ML IVPB SCH ×2 (08:13→21:31)
[2018-12-09] MEDS: Micafungin 100 MG in Sodium Chloride 0.9% 100 ML IVPB SCH (08:14)
[2018-12-09] MEDS: Furosemide 100 MG in Sodium Chloride 0.9% 100 ML IV SCH (08:23)
[2018-12-09] MEDS: Linezolid 600 mg in D5W 300 ml 600 MG/300 ML BAG IVPB SCH ×2 (08:32→21:32)
[2018-12-09] MEDS: Heparin 25,000units in D5W 25,000 UNITS/250 ML BAG IV SCH (09:04)
[2018-12-09 10:53] LABS: INR 1.1
[2018-12-09 10:56] LABS: PARTIAL THROMBOPLASTIN TIME 49.4 Seconds (25.6-37.1)
--- NOTE | 2018-12-09 12:17 | CP.PCM.PN ---
Subjective - Date & Time of Evaluation Date of Evaluation: 12/09/18 Time of Evaluation: 09:00 - Subjective Subjective: extubated alert nad Objective - Vital Signs/Intake and Output Vital Signs (last 24 hours): Temp Pulse Resp BP Pulse Ox 99.8 F H 98 H 19 116/80 95 12/09/18 04:00 12/09/18 12:00 12/09/18 12:00 12/09/18 12:00 12/09/18 12:00 Intake and Output: 12/09/18 12/09/18 06:59 18:59 Intake Total 678 924 Output Total 500 Balance 678 424 - Medications Medications: Current Medications Acetaminophen (Tylenol 325mg Tab) 650 mg PO Q6H PRN PRN Reason: Pain (1-10) Last Admin: 12/06/18 21:17 Dose: 650 mg Acetaminophen (Tylenol 325mg Tab) 650 mg PO Q6H PRN PRN Reason: Fever >100.4 F Last Admin: 11/28/18 06:07 Dose: 650 mg Acetaminophen (Tylenol 160mg/5ml Oral Soln) 160 mg PO ONCE PRN PRN Reason: Flu symptoms Albuterol/Ipratropium (Duoneb 3 Mg/0.5 Mg (3 Ml) Ud) 3 ml INH RQ6 [facility] Last Admin: 12/09/18 07:56 Dose: 3 ml Atorvastatin Calcium (Lipitor) 40 mg PO DAILY [facility] Last Admin: 12/08/18 08:05 Dose: 40 mg Dimethicone (Proshield Plus Skin Protectant) 1 applic TOP Q8 [facility] Last Admin: 12/09/18 08:14 Dose: 1 applic Furosemide 100 mg/ Sodium (Chloride) 100 mls @ 10 mls/hr IV .Q10H [facility]; Protocol Last Admin: 12/08/18 05:27 Dose: 10 mls/hr Aztreonam 1 gm/ Sodium (Chloride) 100 mls @ 100 mls/hr IVPB Q12 [facility]; Protocol Last Admin: 12/09/18 08:13 Dose: 100 mls/hr Linezolid (Zyvox 600mg/300ml D5w) 600 mg in 300 mls @ 300 mls/hr IVPB Q12 [facility]; Protocol Last Admin: 12/09/18 08:32 Dose: 300 mls/hr Micafungin Sodium 100 mg/ (Sodium Chloride) 100 mls @ 100 mls/hr IVPB DAILY [facility]; Protocol Last Admin: 12/09/18 08:14 Dose: 100 mls/hr Furosemide 100 mg/ Sodium (Chloride) 100 mls @ 10 mls/hr IV .Q10H [facility]; Protocol Last Admin: 12/09/18 08:23 Dose: 10 mls/hr Heparin Sodium/Dextrose (Heparin 25,000 Units/250ml In D5w) 25,000 units in 250 mls @ 19 mls/hr IV .[id number] [facility]; Protocol Last Admin: 12/09/18 09:04 Dose: 19 mls/hr Metoprolol Tartrate (Lopressor) 12.5 mg PO Q12 [facility] Last Admin: 12/09/18 11:13 Dose: Not Given Morphine Sulfate (Morphine) 4 mg IVP Q4 PRN PRN Reason: Agitation Last Admin: 12/08/18 05:29 Dose: 4 mg Nystatin (Nystop Topical Powder) 1 applic TOP TID [facility] Last Admin: 12/09/18 08:14 Dose: 1 applic Pantoprazole Sodium (Protonix Inj) 40 mg IVP Q12 [facility] Last Admin: 12/09/18 08:15 Dose: 40 mg - Labs Labs: 12/09/18 04:00 12/09/18 04:00 PT 12.0 Seconds (9.8-13.1) 12/09/18 10:30 INR 1.1 12/09/18 10:30 APTT 49.4 Seconds (25.6-37.1) H 12/09/18 10:30 - Constitutional Appears: Non-toxic, Chronically Ill - Head Exam Head Exam: NORMOCEPHALIC - Eye Exam Eye Exam: absent: Scleral icterus - ENT Exam ENT Exam: Mucous Membranes Dry - Neck Exam Neck Exam: absent: Lymphadenopathy - Respiratory Exam Respiratory Exam: Decreased Breath Sounds, Rhonchi - Cardiovascular Exam Cardiovascular Exam: REGULAR RHYTHM - GI/Abdominal Exam GI & Abdominal Exam: Distended, Soft Assessment and Plan (1) Acute hypoxemic respiratory failure Status: Acute (2) Anemia Status: Acute (3) CAP (community acquired pneumonia) Status: Acute (4) CHF exacerbation Status: Acute (5) Coagulopathy Status: Acute (6) Hematoma Status: Acute (7) Hypotension Status: Acute (8) Influenza A Status: Acute (9) Leukocytosis Status: Acute (10) NSTEMI (non-ST elevated myocardial infarction) Status: Acute (11) Pneumonia and influenza Status: Acute (12) Renal failure, acute Status: Acute (13) Sepsis Status: Acute (14) History of aortic valve replacement Status: Chronic (15) COPD (chronic obstructive pulmonary disease) Status: Suspected (16) Myocardial ischemia Status: Acute - Assessment and Plan (Free Text) Assessment: d/c isolation IV antibiotics renewed
--- NOTE | 2018-12-09 13:05 | CP.PCM.PN ---
Subjective - Date & Time of Evaluation Date of Evaluation: 12/09/18 Time of Evaluation: 13:07 - Subjective Subjective: Patient improving, extubated, good output. Verbalized AAOx3. Severally debilitated Will continue present rx Objective - Vital Signs/Intake and Output Vital Signs (last 24 hours): Temp Pulse Resp BP Pulse Ox 98.7 F 103 H 24 93/45 L 94 L 12/09/18 12:21 12/09/18 12:21 12/09/18 12:21 12/09/18 12:21 12/09/18 12:21 Intake and Output: 12/09/18 12/09/18 11:59 23:59 Intake Total 776 358 Output Total 400 100 Balance 376 258 - Medications Medications: Current Medications Acetaminophen (Tylenol 325mg Tab) 650 mg PO Q6H PRN PRN Reason: Pain (1-10) Last Admin: 12/06/18 21:17 Dose: 650 mg Acetaminophen (Tylenol 325mg Tab) 650 mg PO Q6H PRN PRN Reason: Fever >100.4 F Last Admin: 11/28/18 06:07 Dose: 650 mg Acetaminophen (Tylenol 160mg/5ml Oral Soln) 160 mg PO ONCE PRN PRN Reason: Flu symptoms Albuterol/Ipratropium (Duoneb 3 Mg/0.5 Mg (3 Ml) Ud) 3 ml INH RQ6 [facility] Last Admin: 12/09/18 07:56 Dose: 3 ml Atorvastatin Calcium (Lipitor) 40 mg PO DAILY [facility] Last Admin: 12/08/18 08:05 Dose: 40 mg Dimethicone (Proshield Plus Skin Protectant) 1 applic TOP Q8 [facility] Last Admin: 12/09/18 08:14 Dose: 1 applic Furosemide 100 mg/ Sodium (Chloride) 100 mls @ 10 mls/hr IV .Q10H [facility]; Protocol Last Admin: 12/08/18 05:27 Dose: 10 mls/hr Aztreonam 1 gm/ Sodium (Chloride) 100 mls @ 100 mls/hr IVPB Q12 [facility]; Protocol Last Admin: 12/09/18 08:13 Dose: 100 mls/hr Linezolid (Zyvox 600mg/300ml D5w) 600 mg in 300 mls @ 300 mls/hr IVPB Q12 [facility]; Protocol Last Admin: 12/09/18 08:32 Dose: 300 mls/hr Micafungin Sodium 100 mg/ (Sodium Chloride) 100 mls @ 100 mls/hr IVPB DAILY [facility]; Protocol Last Admin: 12/09/18 08:14 Dose: 100 mls/hr Furosemide 100 mg/ Sodium (Chloride) 100 mls @ 10 mls/hr IV .Q10H [facility]; Protocol Last Admin: 12/09/18 08:23 Dose: 10 mls/hr Heparin Sodium/Dextrose (Heparin 25,000 Units/250ml In D5w) 25,000 units in 250 mls @ 19 mls/hr IV .[id number] [facility]; Protocol Last Admin: 12/09/18 09:04 Dose: 19 mls/hr Metoprolol Tartrate (Lopressor) 12.5 mg PO Q12 [facility] Last Admin: 12/09/18 11:13 Dose: Not Given Morphine Sulfate (Morphine) 4 mg IVP Q4 PRN PRN Reason: Agitation Last Admin: 12/08/18 05:29 Dose: 4 mg Nystatin (Nystop Topical Powder) 1 applic TOP TID [facility] Last Admin: 12/09/18 08:14 Dose: 1 applic Pantoprazole Sodium (Protonix Inj) 40 mg IVP Q12 [facility] Last Admin: 12/09/18 08:15 Dose: 40 mg - Labs Labs: 12/09/18 04:00 12/09/18 04:00 PT 12.0 Seconds (9.8-13.1) 12/09/18 10:30 INR 1.1 12/09/18 10:30 APTT 49.4 Seconds (25.6-37.1) H 12/09/18 10:30 - Constitutional Appears: Chronically Ill - Head Exam Head Exam: ATRAUMATIC, NORMAL INSPECTION, NORMOCEPHALIC - Eye Exam Eye Exam: Normal appearance - Neck Exam Neck Exam: Normal Inspection - Respiratory Exam Respiratory Exam: Decreased Breath Sounds, Rales - Cardiovascular Exam Cardiovascular Exam: REGULAR RHYTHM, +S1, +S2 - GI/Abdominal Exam GI & Abdominal Exam: Soft - Extremities Exam Extremities Exam: Normal Inspection - Neurological Exam Neurological Exam: Alert, Awake, Oriented x3 - Psychiatric Exam Psychiatric exam: Flat Affect - Skin Skin Exam: Pallor Assessment and Plan (1) CAP (community acquired pneumonia) Status: Acute (2) CHF exacerbation Status: Acute (3) DVT prophylaxis Status: Acute (4) History of aortic valve replacement Status: Chronic (5) Influenza A Status: Acute (6) NSTEMI (non-ST elevated myocardial infarction) Status: Acute (7) Pneumonia and influenza Status: Acute (8) Respiratory distress Status: Acute (9) Respiratory failure with hypoxia and hypercapnia Status: Acute (10) Morbid obesity Status: Chronic (11) COPD (chronic obstructive pulmonary disease) Status: Suspected (12) Myocardial ischemia Status: Acute (13) Renal failure, acute Status: Acute (14) Hematoma Status: Acute (15) Sepsis Status: Acute
--- NOTE | 2018-12-09 16:14 | CP.PCM.PN ---
Subjective - Date & Time of Evaluation Date of Evaluation: 12/09/18 Time of Evaluation: 16:13 - Subjective Subjective: extubated Objective - Vital Signs/Intake and Output Vital Signs (last 24 hours): Temp Pulse Resp BP Pulse Ox 98.7 F 100 H 12 103/45 L 99 12/09/18 12:21 12/09/18 14:00 12/09/18 14:00 12/09/18 14:00 12/09/18 14:00 Intake and Output: 12/09/18 12/09/18 06:59 18:59 Intake Total 678 972 Output Total 900 Balance 678 72 - Medications Medications: Current Medications Acetaminophen (Tylenol 325mg Tab) 650 mg PO Q6H PRN PRN Reason: Pain (1-10) Last Admin: 12/06/18 21:17 Dose: 650 mg Acetaminophen (Tylenol 325mg Tab) 650 mg PO Q6H PRN PRN Reason: Fever >100.4 F Last Admin: 11/28/18 06:07 Dose: 650 mg Acetaminophen (Tylenol 160mg/5ml Oral Soln) 160 mg PO ONCE PRN PRN Reason: Flu symptoms Albuterol/Ipratropium (Duoneb 3 Mg/0.5 Mg (3 Ml) Ud) 3 ml INH RQ6 [facility] Last Admin: 12/09/18 13:55 Dose: 3 ml Atorvastatin Calcium (Lipitor) 40 mg PO DAILY [facility] Last Admin: 12/08/18 08:05 Dose: 40 mg Dimethicone (Proshield Plus Skin Protectant) 1 applic TOP Q8 [facility] Last Admin: 12/09/18 08:14 Dose: 1 applic Aztreonam 1 gm/ Sodium (Chloride) 100 mls @ 100 mls/hr IVPB Q12 [facility]; Protocol Last Admin: 12/09/18 08:13 Dose: 100 mls/hr Linezolid (Zyvox 600mg/300ml D5w) 600 mg in 300 mls @ 300 mls/hr IVPB Q12 [facility]; Protocol Last Admin: 12/09/18 08:32 Dose: 300 mls/hr Micafungin Sodium 100 mg/ (Sodium Chloride) 100 mls @ 100 mls/hr IVPB DAILY [facility]; Protocol Last Admin: 12/09/18 08:14 Dose: 100 mls/hr Heparin Sodium/Dextrose (Heparin 25,000 Units/250ml In D5w) 25,000 units in 250 mls @ 19 mls/hr IV .[id number] [facility]; Protocol Last Admin: 12/09/18 09:04 Dose: 19 mls/hr Metoprolol Tartrate (Lopressor) 12.5 mg PO Q12 [facility] Last Admin: 12/09/18 11:13 Dose: Not Given Morphine Sulfate (Morphine) 4 mg IVP Q4 PRN PRN Reason: Agitation Last Admin: 12/08/18 05:29 Dose: 4 mg Nystatin (Nystop Topical Powder) 1 applic TOP TID [facility] Last Admin: 12/09/18 13:34 Dose: 1 applic Pantoprazole Sodium (Protonix Inj) 40 mg IVP Q12 [facility] Last Admin: 12/09/18 08:15 Dose: 40 mg - Labs Labs: 12/09/18 04:00 12/09/18 04:00 PT 12.0 Seconds (9.8-13.1) 12/09/18 10:30 INR 1.1 12/09/18 10:30 APTT 49.4 Seconds (25.6-37.1) H 12/09/18 10:30 - Respiratory Exam Respiratory Exam: NORMAL BREATHING PATTERN - Cardiovascular Exam Cardiovascular Exam: REGULAR RHYTHM Assessment and Plan - Assessment and Plan (Free Text) Assessment: 58 yo female with IN and anemia supportive care PPI cardio input
--- NOTE | 2018-12-09 16:31 | CP.CCUPN ---
CCU Subjective - Physician Review Subjective (Free Text): Extubated yesterday, refused BiPAP this AM, converted to nasal cannula at 4 LPM and tolerating well. Remains awake, +conversant, no distress, unlabored breathing noted. Lasix drip stopped after confirmation with Nephro. Urine output 500 ml overnight. ROS: No other pertinent negs or positives on 10+ system review PMSFH: All other Nursing and physician documentation reviewed to date; no new pertinent info noted relevant to current medical problems. EXAM- HEENT: no icterus, no gaze preference NECK: No JVD visible given short neck and overall obesity, supple, carotids equal upstroke bilat/no bruit. Resolving nderlying ecchymoses and hematoma noted; no increase in size or extent from previous descriptions. CHEST: resolving upper chest ecchymoses noted extending form R shoulder across upper chest to left side; decreased BS at the bases, especially R base; no wheezes audible bilaterally. HEART: regular, distant, S1S2, no rubs or murmurs noted ABD: soft and obese, nontender, no guarding, no organomegaly, BS hypoactive. EXT: trace leg edema, no calf tenderness or palpable cords, distal pulses intact and symmetrical. RUEE PICC (done yesterday) NEURO: moves and exhibits + tone in all extremities. SKIN: no rashes, warm and dry LABS: WBC= 11.6 HGB= 7.4, was 7.9 yesterday PLTs= 328K Coags: PTT = 49.0 7.33/49/105 Na= 135 K= 3.8 CL= 99 HCO3= 26 BUN/Cr= 69/4.0 BS= 82 IMPRESSION / MAJOR PROBLEMS NOW: 1. Acute hypercarbic resp failure 2 COPD Exacerbation /Bilat pneumonia, NSTEMI with Acute Pulm Edema 2. Influenza Viral resp infection, r/o superimposed bilateral bacterial PNA 3. GI bleed (r/o stress gastritis versus other colitis disorder) and diffuse upper chest and neck ecchymoses (from previous R subclavian and R IJ vein venipuncture attempts during TLC placement) from warfarin coagulopathy. 4. SEDA, r/o ATN, versus pre-renal Azotemia 5. s /p AVR, on AC with heparin drip 6. Morbid obesity PLAN: 1. Try converting specialized bariatric bed into chair configuration, to allow for a better breathing posture for patient. PT to eval for mobilization OOB. Try to encourage incentive spirometry. 2. Q6H Duonebs 3. Ongoing Aztreo/ Zyvox/ Diflucan therapy. 4. Dysphagia eval 24H post-extubation today. 5. Maintain Heparin drip. Monitor serial Hgb levels, no new bleeding evident. 6. Repeat UA. Dec 06 results reviewed. Would d/c Sher unless otherwise directed by Nephro for further strict u/o monitoring.
--- NOTE | 2018-12-09 22:30 | CP.PCM.PN ---
Subjective - Date & Time of Evaluation Date of Evaluation: 12/09/18 Time of Evaluation: 13:00 - Subjective Subjective: Patient extubated yesterday; currently wants PT; not yet on PO feeds; Objective - Vital Signs/Intake and Output Vital Signs (last 24 hours): Temp Pulse Resp BP Pulse Ox 99.0 F 101 H 19 94/48 L 94 L 12/09/18 16:00 12/09/18 21:32 12/09/18 18:00 12/09/18 21:32 12/09/18 18:00 Intake and Output: 12/09/18 12/10/18 18:59 06:59 Intake Total 1218 Output Total 1100 Balance 118 - Medications Medications: Current Medications Acetaminophen (Tylenol 325mg Tab) 650 mg PO Q6H PRN PRN Reason: Pain (1-10) Last Admin: 12/06/18 21:17 Dose: 650 mg Acetaminophen (Tylenol 325mg Tab) 650 mg PO Q6H PRN PRN Reason: Fever >100.4 F Last Admin: 11/28/18 06:07 Dose: 650 mg Acetaminophen (Tylenol 160mg/5ml Oral Soln) 160 mg PO ONCE PRN PRN Reason: Flu symptoms Albuterol/Ipratropium (Duoneb 3 Mg/0.5 Mg (3 Ml) Ud) 3 ml INH RQ6 [facility] Last Admin: 12/09/18 19:37 Dose: 3 ml Atorvastatin Calcium (Lipitor) 40 mg PO DAILY [facility] Last Admin: 12/09/18 16:23 Dose: 40 mg Dimethicone (Proshield Plus Skin Protectant) 1 applic TOP Q8 [facility] Last Admin: 12/09/18 16:26 Dose: 1 applic Aztreonam 1 gm/ Sodium (Chloride) 100 mls @ 100 mls/hr IVPB Q12 [facility]; Protocol Last Admin: 12/09/18 21:31 Dose: 100 mls/hr Linezolid (Zyvox 600mg/300ml D5w) 600 mg in 300 mls @ 300 mls/hr IVPB Q12 [facility]; Protocol Last Admin: 12/09/18 21:32 Dose: 300 mls/hr Micafungin Sodium 100 mg/ (Sodium Chloride) 100 mls @ 100 mls/hr IVPB DAILY [facility]; Protocol Last Admin: 01/23/19 08:14 Dose: 100 mls/hr Heparin Sodium/Dextrose (Heparin 25,000 Units/250ml In D5w) 25,000 units in 250 mls @ 19 mls/hr IV .[id number] [facility]; Protocol Last Admin: 12/09/18 09:04 Dose: 19 mls/hr Metoprolol Tartrate (Lopressor) 12.5 mg PO Q12 [facility] Last Admin: 12/09/18 21:32 Dose: Not Given Morphine Sulfate (Morphine) 4 mg IVP Q4 PRN PRN Reason: Agitation Last Admin: 12/08/18 05:29 Dose: 4 mg Nystatin (Nystop Topical Powder) 1 applic TOP TID [facility] Last Admin: 12/09/18 16:26 Dose: 1 applic Pantoprazole Sodium (Protonix Inj) 40 mg IVP Q12 [facility] Last Admin: 12/09/18 21:32 Dose: 40 mg - Labs Labs: 12/09/18 04:00 12/09/18 04:00 PT 12.0 Seconds (9.8-13.1) 12/09/18 10:30 INR 1.1 12/09/18 10:30 APTT 49.4 Seconds (25.6-37.1) H 12/09/18 10:30 - Constitutional Appears: Non-toxic, No Acute Distress - Eye Exam Eye Exam: Normal appearance - Respiratory Exam Respiratory Exam: Wheezes. absent: Respiratory Distress - Cardiovascular Exam Cardiovascular Exam: RRR, +S1, +S2 - GI/Abdominal Exam GI & Abdominal Exam: Soft. absent: Distended, Tenderness - Extremities Exam Additional comments: some edema of dependent areas, no leg edema, UE edema resolving; - Neurological Exam Neurological Exam: Alert, Awake - Psychiatric Exam Psychiatric exam: absent: Agitated - Skin Skin Exam: Warm. absent: Cyanosis Assessment and Plan (1) Renal failure, acute Assessment & Plan: Non-oliguric renal failure consistent with ATN but with possibility of superimposed AIN; stable electrolyte status and FIO2 requirement; last HD yesterday; no indication for HD currently; will re-assess tomorrow; Discussed with PMD and CCM attending; may need to d/c PPI given possibility of AIN but given patient's melena and severe anemia on presentation, will keep for now; -avoid nephrotoxic agents; -stopping lasix drip; Status: Acute (2) Acute hypoxemic respiratory failure Status: Acute (3) Anemia Status: Acute (4) Hypotension Status: Acute (5) Sepsis Assessment & Plan: On aztreonam and linezolid; dose for HD; Status: Acute
[2018-12-09] MEDS: Morphine 4 MG/ML VIAL IVP PRN (22:37)
--- NOTE | 2018-12-09 23:08 | CP.PCM.PN ---
<Celestine Calhoun - Last Filed: 12/09/18 23:05> Subjective - Date & Time of Evaluation Date of Evaluation: 12/09/18 Time of Evaluation: 09:00 - Subjective Subjective: Celestine Calhoun DO PGY1 - Internal Medicine [employer] - Cardiology Consult Note Patient was seen and examined at bedside this morning; Extubated yesterday - bipap overnight On presentation this AM patient mildly lethargic requires constant reorientation; admits to feeling sleepy. Objective - Vital Signs/Intake and Output Vital Signs (last 24 hours): Temp Pulse Resp BP Pulse Ox 99.0 F 101 H 19 94/48 L 94 L 12/09/18 16:00 12/09/18 21:32 12/09/18 18:00 12/09/18 21:32 12/09/18 18:00 Intake and Output: 12/09/18 12/10/18 18:59 06:59 Intake Total 1218 Output Total 1100 Balance 118 - Medications Medications: Current Medications Acetaminophen (Tylenol 325mg Tab) 650 mg PO Q6H PRN PRN Reason: Pain (1-10) Last Admin: 12/06/18 21:17 Dose: 650 mg Acetaminophen (Tylenol 325mg Tab) 650 mg PO Q6H PRN PRN Reason: Fever >100.4 F Last Admin: 11/28/18 06:07 Dose: 650 mg Acetaminophen (Tylenol 160mg/5ml Oral Soln) 160 mg PO ONCE PRN PRN Reason: Flu symptoms Albuterol/Ipratropium (Duoneb 3 Mg/0.5 Mg (3 Ml) Ud) 3 ml INH RQ6 [facility] Last Admin: 12/09/18 19:37 Dose: 3 ml Atorvastatin Calcium (Lipitor) 40 mg PO DAILY [facility] Last Admin: 12/09/18 16:23 Dose: 40 mg Dimethicone (Proshield Plus Skin Protectant) 1 applic TOP Q8 [facility] Last Admin: 12/09/18 16:26 Dose: 1 applic Aztreonam 1 gm/ Sodium (Chloride) 100 mls @ 100 mls/hr IVPB Q12 [facility]; Protocol Last Admin: 12/09/18 21:31 Dose: 100 mls/hr Linezolid (Zyvox 600mg/300ml D5w) 600 mg in 300 mls @ 300 mls/hr IVPB Q12 [facility]; Protocol Last Admin: 12/09/18 21:32 Dose: 300 mls/hr Micafungin Sodium 100 mg/ (Sodium Chloride) 100 mls @ 100 mls/hr IVPB DAILY [facility]; Protocol Last Admin: 12/09/18 08:14 Dose: 100 mls/hr Metoprolol Tartrate (Lopressor) 12.5 mg PO Q12 [facility] Last Admin: 12/09/18 21:32 Dose: Not Given Morphine Sulfate (Morphine) 4 mg IVP Q4 PRN PRN Reason: Agitation Last Admin: 12/09/18 22:37 Dose: 4 mg Nystatin (Nystop Topical Powder) 1 applic TOP TID [facility] Last Admin: 12/09/18 16:26 Dose: 1 applic Pantoprazole Sodium (Protonix Inj) 40 mg IVP Q12 [facility] Last Admin: 12/09/18 21:32 Dose: 40 mg - Labs Labs: 12/09/18 04:00 12/09/18 04:00 PT 12.0 Seconds (9.8-13.1) 12/09/18 10:30 INR 1.1 12/09/18 10:30 APTT 49.4 Seconds (25.6-37.1) H 12/09/18 10:30 - Constitutional Appears: Non-toxic, No Acute Distress - Head Exam Head Exam: ATRAUMATIC, NORMOCEPHALIC - Eye Exam Eye Exam: EOMI, Normal appearance, PERRL. absent: Scleral icterus - ENT Exam Additional comments: Moist mucous membrane - Respiratory Exam Respiratory Exam: Rhonchi, Wheezes, NORMAL BREATHING PATTERN. absent: Clear to Ausculation Bilateral Additional comments: Mild crackles appreciated bilaterally - Cardiovascular Exam Cardiovascular Exam: RRR, +S1, +S2 Additional comments: No click appreciated on exam - GI/Abdominal Exam GI & Abdominal Exam: Soft. absent: Tenderness Additional comments: Obese - Extremities Exam Additional comments: BL LE PT/DP 2+ Assessment and Plan (1) CAP (community acquired pneumonia) Status: Acute (2) CHF exacerbation Status: Acute (3) NSTEMI (non-ST elevated myocardial infarction) Status: Acute (4) Morbid obesity Status: Chronic (5) COPD (chronic obstructive pulmonary disease) Status: Suspected - Assessment and Plan (Free Text) Plan: Continue Metoprolol 12.5 Q12 Can bridge from heparin to OAC Consider starting losartan Will need to consider AC as patient has hx of mechanical valve Further reccs per Dr. Sutton to follow. <Isaak Sutton - Last Filed: 12/11/18 22:04> Objective - Vital Signs/Intake and Output Vital Signs (last 24 hours): Temp Pulse Resp BP Pulse Ox 98.9 F 96 H 20 111/47 L 99 12/11/18 16:00 12/11/18 21:32 12/11/18 19:11 12/11/18 21:32 12/11/18 18:00 Intake and Output: 12/11/18 12/12/18 18:59 06:59 Intake Total 500 Output Total 800 Balance -300 - Medications Medications: Current Medications Acetaminophen (Tylenol 160mg/5ml Oral Soln) 160 mg PO ONCE PRN PRN Reason: Flu symptoms Acetylcysteine (Acetylcysteine 20%) 2 ml INH DAILY [facility] Last Admin: 12/11/18 07:36 Dose: 2 ml Albuterol/Ipratropium (Duoneb 3 Mg/0.5 Mg (3 Ml) Ud) 3 ml INH RQ6 [facility] Last Admin: 12/11/18 19:11 Dose: 3 ml Aztreonam 1 gm/ Sodium (Chloride) 100 mls @ 100 mls/hr IVPB Q12 [facility]; Protocol Last Admin: 12/11/18 21:30 Dose: 100 mls/hr Linezolid (Zyvox 600mg/300ml D5w) 600 mg in 300 mls @ 300 mls/hr IVPB Q12 [facility]; Protocol Last Admin: 12/11/18 21:33 Dose: 300 mls/hr Micafungin Sodium 100 mg/ (Sodium Chloride) 100 mls @ 100 mls/hr IVPB DAILY [facility]; Protocol Last Admin: 12/11/18 08:29 Dose: 100 mls/hr Heparin Sodium/Dextrose (Heparin 25,000 Units/250ml In D5w) 25,000 units in 250 mls @ 19 mls/hr IV .[id number] [facility]; Protocol Last Admin: 12/11/18 17:07 Dose: 19 mls/hr Metoprolol Tartrate (Lopressor) 12.5 mg PO Q12 [facility] Last Admin: 12/11/18 21:32 Dose: 12.5 mg Pantoprazole Sodium (Protonix Inj) 40 mg IVP Q12 [facility] Last Admin: 12/11/18 21:30 Dose: 40 mg - Labs Labs: 12/11/18 05:20 12/11/18 05:20 PT 12.0 Seconds (9.8-13.1) 12/09/18 10:30 INR 1.1 12/09/18 10:30 APTT 46.0 Seconds (25.6-37.1) H 12/11/18 06:54 Assessment and Plan (1) NSTEMI (non-ST elevated myocardial infarction) Status: Acute (2) CAP (community acquired pneumonia) Status: Acute (3) CHF exacerbation Status: Acute (4) Respiratory distress Status: Acute (5) Respiratory failure with hypoxia and hypercapnia Status: Acute (6) History of aortic valve replacement Status: Chronic (7) Morbid obesity Status: Chronic (8) COPD (chronic obstructive pulmonary disease) Status: Suspected Attending/Attestation - Attestation I have personally seen and examined this patient.: Yes I have fully participated in the care of the patient.: Yes I have reviewed all pertinent clinical information, including history, physical exam and plan: Yes
[2018-12-10] MEDS: Albuterol-Ipratrop 3 mg / 0.5 (3 ml) UD INH SCH ×4 (01:10→19:21)
[2018-12-10] MEDS: Proshield Plus GEL TOP SCH ×3 (01:44→18:36)
[2018-12-10] MEDS: Morphine 4 MG/ML VIAL IVP PRN (02:10)
[2018-12-10] MEDS ORDERED: Levalbuterol 1.25 MG/3 ML Inhal Soln UD INH ONE (02:51)
[2018-12-10 03:16] LABS: ABG ALLEN TEST YES; ARTERIAL BLOOD GAS HCO3 22.9 mmol/L (21-28); ARTERIAL BLOOD GAS HEMOGLOBIN 14.6 g/dL (11.7-17.4); ARTERIAL BLOOD GAS O2 CAPACITY 19.4 mL/dL (16-24); ARTERIAL BLOOD GAS O2 SAT 87.8 % (95-98); ARTERIAL BLOOD GAS PCO2 40 mm/Hg (35-45); ARTERIAL BLOOD GAS PH 7.37 (7.35-7.45); ARTERIAL BLOOD GAS PO2 49 mm/Hg (80-100); ARTERIAL BLOOD GAS TCO2 24.3 mmol/L (22-28)
[2018-12-10] MEDS ORDERED: Morphine 4 MG/ML VIAL IVP STA (03:24)
[2018-12-10 05:55] LABS: BASO % 0.1 % (0.0-2.0); EOS # 0.3 K/uL (0.0-0.7); EOS % 1.5 % (0.0-4.0); HEMOGLOBIN 7.1 g/dL (12.0-16.0); LYMPH # 1.1 K/uL (1.0-4.3); LYMPH % 5.6 % (20.0-40.0); MEAN CELL VOLUME 94.7 fl (81.0-99.0); MEAN CORPUSCULAR HEMOGLOBIN 30.9 pg (27.0-31.0); MEAN CORPUSCULAR HGB CONC 32.6 g/dL (33.0-37.0); MEAN PLATELET VOLUME 7.9 fl (7.2-11.7); MONO # 0.9 K/uL (0.0-0.8); MONO % 4.6 % (0.0-10.0); NEUT % 88.2 % (50.0-75.0); NRBC % 0.1 % (0.0-0.0); PLATELET COUNT 368 K/uL (130-400); RBC 2.29 Mil/uL (3.80-5.20); RED CELL DISTRIBUTION WIDTH 15.4 % (11.5-14.5); WHITE BLOOD COUNT 19.3 K/uL (4.8-10.8)
[2018-12-10 06:03] LABS: CALCIUM 8.3 mg/dL (8.4-10.2)
[2018-12-10] MEDS: Aztreonam 1 GM in Sodium Chloride 0.9% 100 ML IVPB SCH ×2 (08:02→21:42)
[2018-12-10] MEDS: Micafungin 100 MG in Sodium Chloride 0.9% 100 ML IVPB SCH (08:07)
[2018-12-10] MEDS: Linezolid 600 mg in D5W 300 ml 600 MG/300 ML BAG IVPB SCH ×2 (08:26→21:42)
[2018-12-10] MEDS ORDERED: Sodium Chloride 3% for Inhalation 4 ML VIAL.NEB IH PRN (08:46)
[2018-12-10 10:23] LABS: ANISOCYTOSIS SLIGHT; BASOPHIL 1 % (0-2); EOSINOPHIL 2 % (0-7); LYMPHOCYTE 3 % (20-50); MONOCYTE 5 % (0-10); NEUTROPHIL 89 % (42-75); PLATELET ESTIMATE NORMAL (NORMAL); TOTAL CELLS COUNTED 100
[2018-12-10 10:25] LABS: HYPOCHROMIC MODERATE
--- NOTE | 2018-12-10 10:52 | RAD ---
Date of service: 12/10/2018 HISTORY: pneumonia COMPARISON: Portable chest 12/08/2018 4:22 a.m.. FINDINGS: LUNGS: Orogastric and endotracheal tubes appear to been removed with right PICC unchanged in position. Left central venous dialysis catheter is unchanged in position as well. Respiratory motion artifact distorts this examination significantly. Limited patchy density is question at the mid to inferior right lung zone with linear atelectasis lateral to the left hilum once again. PLEURA: No significant pleural effusion identified, no definite pneumothorax apparent. CARDIOVASCULAR: Calcific atherosclerotic changes are seen related to the thoracic aorta. Post CABG changes reiterated. Prominent cardiac silhouette reiterated with no significant interval change in apparent pulmonary vascular congestion. OSSEOUS STRUCTURES: No significant abnormalities. VISUALIZED UPPER ABDOMEN: Normal. OTHER FINDINGS: None. IMPRESSION: Motion artifacts degrade the quality this exam significantly. Pulmonary vascular congestion pattern is stable as well as patchy density at the mid to inferior right lung zone and linear atelectasis mid left lung. Status post extubation and removal of orogastric tube.
[2018-12-10 11:43] LABS: BASO % 0.2 % (0.0-2.0); EOS # 0.4 K/uL (0.0-0.7); EOS % 2.1 % (0.0-4.0); HEMOGLOBIN 7.1 g/dL (12.0-16.0); LYMPH # 1.3 K/uL (1.0-4.3); MEAN CELL VOLUME 94.6 fl (81.0-99.0); MEAN CORPUSCULAR HEMOGLOBIN 30.9 pg (27.0-31.0); MEAN CORPUSCULAR HGB CONC 32.7 g/dL (33.0-37.0); MEAN PLATELET VOLUME 7.8 fl (7.2-11.7); MONO # 0.9 K/uL (0.0-0.8); MONO % 4.8 % (0.0-10.0); NEUT # 16.4 K/uL (1.8-7.0); NEUT % 85.9 % (50.0-75.0); RBC 2.29 Mil/uL (3.80-5.20); WHITE BLOOD COUNT 19.2 K/uL (4.8-10.8)
--- NOTE | 2018-12-10 11:53 | CP.PCM.PN ---
Subjective - Date & Time of Evaluation Date of Evaluation: 12/10/18 Time of Evaluation: 11:54 - Subjective Subjective: Patient extubated, AAOx3. The general condition is poor with mild distress and decrease in respiratory effort. Low grade fever and increase of wbc, Will repeat cultures and cbc consider transfusion if needed. Continue dialysis.Will follow Objective - Vital Signs/Intake and Output Vital Signs (last 24 hours): Temp Pulse Resp BP Pulse Ox 98.9 F 104 H 19 95/38 L 90 L 12/10/18 08:00 12/10/18 10:00 12/10/18 10:00 12/10/18 10:00 12/10/18 10:00 Intake and Output: 12/09/18 12/10/18 23:59 11:59 Intake Total 1509 548 Output Total 700 850 Balance 809 -302 - Medications Medications: Current Medications Acetaminophen (Tylenol 325mg Tab) 650 mg PO Q6H PRN PRN Reason: Pain (1-10) Last Admin: 12/10/18 03:00 Dose: 650 mg Acetaminophen (Tylenol 325mg Tab) 650 mg PO Q6H PRN PRN Reason: Fever >100.4 F Last Admin: 11/28/18 06:07 Dose: 650 mg Acetaminophen (Tylenol 160mg/5ml Oral Soln) 160 mg PO ONCE PRN PRN Reason: Flu symptoms Albuterol/Ipratropium (Duoneb 3 Mg/0.5 Mg (3 Ml) Ud) 3 ml INH RQ6 [facility] Last Admin: 12/10/18 08:27 Dose: 3 ml Atorvastatin Calcium (Lipitor) 40 mg PO DAILY [facility] Last Admin: 12/10/18 08:24 Dose: 40 mg Dimethicone (Proshield Plus Skin Protectant) 1 applic TOP Q8 [facility] Last Admin: 12/10/18 08:08 Dose: 1 applic Aztreonam 1 gm/ Sodium (Chloride) 100 mls @ 100 mls/hr IVPB Q12 [facility]; Protocol Last Admin: 12/10/18 08:02 Dose: 100 mls/hr Linezolid (Zyvox 600mg/300ml D5w) 600 mg in 300 mls @ 300 mls/hr IVPB Q12 [facility]; Protocol Last Admin: 12/10/18 08:26 Dose: 300 mls/hr Micafungin Sodium 100 mg/ (Sodium Chloride) 100 mls @ 100 mls/hr IVPB DAILY [facility]; Protocol Last Admin: 12/10/18 08:07 Dose: 100 mls/hr Metoprolol Tartrate (Lopressor) 12.5 mg PO Q12 [facility] Last Admin: 12/10/18 08:24 Dose: Not Given Morphine Sulfate (Morphine) 4 mg IVP Q4 PRN PRN Reason: Agitation Last Admin: 12/10/18 02:10 Dose: 4 mg Nystatin (Nystop Topical Powder) 1 applic TOP TID [facility] Last Admin: 12/10/18 08:08 Dose: 1 applic Pantoprazole Sodium (Protonix Inj) 40 mg IVP Q12 [facility] Last Admin: 12/10/18 08:25 Dose: 40 mg - Labs Labs: 12/10/18 05:00 12/10/18 05:00 PT 12.0 Seconds (9.8-13.1) 12/09/18 10:30 INR 1.1 12/09/18 10:30 APTT 44.4 Seconds (25.6-37.1) H 12/10/18 05:00 - Constitutional Appears: Chronically Ill - Head Exam Head Exam: ATRAUMATIC, NORMAL INSPECTION, NORMOCEPHALIC - Eye Exam Eye Exam: Normal appearance - Neck Exam Neck Exam: Full ROM - Respiratory Exam Respiratory Exam: Decreased Breath Sounds, Rales - Cardiovascular Exam Cardiovascular Exam: REGULAR RHYTHM, +S1, +S2 - GI/Abdominal Exam GI & Abdominal Exam: Soft - Extremities Exam Extremities Exam: Normal Inspection - Neurological Exam Neurological Exam: Alert, Awake - Psychiatric Exam Psychiatric exam: Flat Affect - Skin Skin Exam: Pallor Assessment and Plan (1) CAP (community acquired pneumonia) Status: Acute (2) CHF exacerbation Status: Acute (3) DVT prophylaxis Status: Acute (4) History of aortic valve replacement Status: Chronic (5) Influenza A Status: Acute (6) NSTEMI (non-ST elevated myocardial infarction) Status: Acute (7) Pneumonia and influenza Status: Acute (8) Respiratory distress Status: Acute (9) Respiratory failure with hypoxia and hypercapnia Status: Acute (10) Morbid obesity Status: Chronic (11) COPD (chronic obstructive pulmonary disease) Status: Suspected (12) Myocardial ischemia Status: Acute (13) Renal failure, acute Status: Acute (14) Hematoma Status: Acute (15) Sepsis Status: Acute
--- NOTE | 2018-12-10 12:12 | CP.PCM.PN ---
<Hebert Alberto - Last Filed: 12/10/18 12:24> Subjective - Date & Time of Evaluation Date of Evaluation: 12/10/18 Time of Evaluation: 08:30 - Subjective Subjective: Patient seen and examined at bedside, seated upright, now on high flow oxygen. Denies acute overnight events. Denies SOB. Objective - Vital Signs/Intake and Output Vital Signs (last 24 hours): Temp Pulse Resp BP Pulse Ox 98.9 F 104 H 19 95/38 L 90 L 12/10/18 08:00 12/10/18 10:00 12/10/18 10:00 12/10/18 10:00 12/10/18 10:00 Intake and Output: 12/10/18 12/10/18 06:59 18:59 Intake Total 1009 396 Output Total 750 100 Balance 259 296 - Medications Medications: Current Medications Acetaminophen (Tylenol 325mg Tab) 650 mg PO Q6H PRN PRN Reason: Pain (1-10) Last Admin: 12/10/18 03:00 Dose: 650 mg Acetaminophen (Tylenol 325mg Tab) 650 mg PO Q6H PRN PRN Reason: Fever >100.4 F Last Admin: 11/28/18 06:07 Dose: 650 mg Acetaminophen (Tylenol 160mg/5ml Oral Soln) 160 mg PO ONCE PRN PRN Reason: Flu symptoms Albuterol/Ipratropium (Duoneb 3 Mg/0.5 Mg (3 Ml) Ud) 3 ml INH RQ6 [facility] Last Admin: 12/10/18 08:27 Dose: 3 ml Atorvastatin Calcium (Lipitor) 40 mg PO DAILY [facility] Last Admin: 12/10/18 08:24 Dose: 40 mg Dimethicone (Proshield Plus Skin Protectant) 1 applic TOP Q8 [facility] Last Admin: 12/10/18 08:08 Dose: 1 applic Aztreonam 1 gm/ Sodium (Chloride) 100 mls @ 100 mls/hr IVPB Q12 [facility]; Protocol Last Admin: 12/10/18 08:02 Dose: 100 mls/hr Linezolid (Zyvox 600mg/300ml D5w) 600 mg in 300 mls @ 300 mls/hr IVPB Q12 [facility]; Protocol Last Admin: 12/10/18 08:26 Dose: 300 mls/hr Micafungin Sodium 100 mg/ (Sodium Chloride) 100 mls @ 100 mls/hr IVPB DAILY [facility]; Protocol Last Admin: 12/10/18 08:07 Dose: 100 mls/hr Metoprolol Tartrate (Lopressor) 12.5 mg PO Q12 [facility] Last Admin: 12/10/18 08:24 Dose: Not Given Morphine Sulfate (Morphine) 4 mg IVP Q4 PRN PRN Reason: Agitation Last Admin: 12/10/18 02:10 Dose: 4 mg Nystatin (Nystop Topical Powder) 1 applic TOP TID [facility] Last Admin: 12/10/18 08:08 Dose: 1 applic Pantoprazole Sodium (Protonix Inj) 40 mg IVP Q12 [facility] Last Admin: 12/10/18 08:25 Dose: 40 mg - Labs Labs: 12/10/18 11:30 12/10/18 05:00 PT 12.0 Seconds (9.8-13.1) 12/09/18 10:30 INR 1.1 12/09/18 10:30 APTT 44.4 Seconds (25.6-37.1) H 12/10/18 05:00 - Constitutional Appears: No Acute Distress - Eye Exam Eye Exam: EOMI - ENT Exam ENT Exam: Mucous Membranes Moist - Respiratory Exam Respiratory Exam: Wheezes (mild expiratory). absent: Respiratory Distress Additional comments: On High flow O2 - Cardiovascular Exam Cardiovascular Exam: REGULAR RHYTHM, +S1, +S2 - GI/Abdominal Exam GI & Abdominal Exam: Distended, Soft, Normal Bowel Sounds. absent: Tenderness - Extremities Exam Extremities Exam: absent: Calf Tenderness - Neurological Exam Neurological Exam: Alert, Awake - Psychiatric Exam Psychiatric exam: Normal Affect, Normal Mood - Skin Skin Exam: Rash (improving, less erythematous) Assessment and Plan (1) Respiratory failure with hypoxia and hypercapnia Status: Acute (2) Influenza A Status: Acute (3) Pneumonia and influenza Status: Acute (4) Morbid obesity Status: Chronic (5) COPD (chronic obstructive pulmonary disease) Status: Suspected - Assessment and Plan (Free Text) Assessment: 58 yo F with pmhx of HTN, COPD, hx of aortic valve replacement and morbid obesity admitted for respiratory failure with hypoxia and hypercapnia, Influenza A, Pneumonia and NSTEMI Plan: On High flow O2: 25 LPM, FiO2 of 35; Pt noted to be febrile with increase in leukocytosis -[place] culture including sputum with fungal culture CXR ordered Congested cough: start Mucomyst qDaily c/w: duonebs RQ6 c/w: abx per ID recs appreciated BUN/Cr: elevated; previously benefitted from HD and lasix. Producing urine. [place]OL[place]ANG: pending official read f/u cultures Monitor for persistent fever, desaturation, respiratory distress. Case and plan d/w Dr. Snow Alberto MD PGY-2 <Froylan Adamson - Last Filed: 12/10/18 14:27> Subjective - Subjective Subjective: the patient was seen and examined with the resident on rounds in the intensive care unit. Physical findings as well as laboratory and radiographi exams were reviewed. Diagnosisand prognosis were discussed in detail. The EMR entry made by the resident accurately reflects today's visit. Objective - Vital Signs/Intake and Output Vital Signs (last 24 hours): Temp Pulse Resp BP Pulse Ox 99.0 F 104 H 21 108/51 L 90 L 12/10/18 12:00 12/10/18 12:00 12/10/18 13:15 12/10/18 12:00 12/10/18 12:00 Intake and Output: 12/10/18 12/10/18 11:59 23:59 Intake Total 548 376 Output Total 850 Balance -302 376 - Medications Medications: Current Medications Acetaminophen (Tylenol 325mg Tab) 650 mg PO Q6H PRN PRN Reason: Pain (1-10) Last Admin: 12/10/18 03:00 Dose: 650 mg Acetaminophen (Tylenol 325mg Tab) 650 mg PO Q6H PRN PRN Reason: Fever >100.4 F Last Admin: 11/28/18 06:07 Dose: 650 mg Acetaminophen (Tylenol 160mg/5ml Oral Soln) 160 mg PO ONCE PRN PRN Reason: Flu symptoms Acetylcysteine (Acetylcysteine 20%) 2 ml INH DAILY [facility] Last Admin: 12/10/18 13:14 Dose: 2 ml Albuterol/Ipratropium (Duoneb 3 Mg/0.5 Mg (3 Ml) Ud) 3 ml INH RQ6 [facility] Last Admin: 12/10/18 13:12 Dose: 3 ml Atorvastatin Calcium (Lipitor) 40 mg PO DAILY [facility] Last Admin: 12/10/18 08:24 Dose: 40 mg Dimethicone (Proshield Plus Skin Protectant) 1 applic TOP Q8 [facility] Last Admin: 12/10/18 08:08 Dose: 1 applic Aztreonam 1 gm/ Sodium (Chloride) 100 mls @ 100 mls/hr IVPB Q12 [facility]; Protocol Last Admin: 12/10/18 08:02 Dose: 100 mls/hr Linezolid (Zyvox 600mg/300ml D5w) 600 mg in 300 mls @ 300 mls/hr IVPB Q12 [facility]; Protocol Last Admin: 12/10/18 08:26 Dose: 300 mls/hr Micafungin Sodium 100 mg/ (Sodium Chloride) 100 mls @ 100 mls/hr IVPB DAILY [facility]; Protocol Last Admin: 12/10/18 08:07 Dose: 100 mls/hr Heparin Sodium/Dextrose (Heparin 25,000 Units/250ml In D5w) 25,000 units in 250 mls @ 19 mls/hr IV .[id number] [facility]; Protocol Last Admin: 12/10/18 12:58 Dose: 19 mls/hr Metoprolol Tartrate (Lopressor) 12.5 mg PO Q12 [facility] Last Admin: 12/10/18 08:24 Dose: Not Given Morphine Sulfate (Morphine) 4 mg IVP Q4 PRN PRN Reason: Agitation Last Admin: 12/10/18 02:10 Dose: 4 mg Nystatin (Nystop Topical Powder) 1 applic TOP TID [facility] Last Admin: 12/10/18 13:17 Dose: 1 applic Pantoprazole Sodium (Protonix Inj) 40 mg IVP Q12 [facility] Last Admin: 12/10/18 08:25 Dose: 40 mg - Labs Labs: 12/10/18 11:30 12/10/18 05:00 PT 12.0 Seconds (9.8-13.1) 12/09/18 10:30 INR 1.1 12/09/18 10:30 APTT 44.4 Seconds (25.6-37.1) H 12/10/18 05:00 Assessment and Plan (1) Respiratory failure with hypoxia and hypercapnia Status: Acute (2) Influenza A Status: Acute (3) Pneumonia and influenza Status: Acute (4) Morbid obesity Status: Chronic (5) COPD (chronic obstructive pulmonary disease) Status: Suspected
[2018-12-10] MEDS: Heparin 25,000units in D5W 25,000 UNITS/250 ML BAG IV SCH (12:58)
[2018-12-10] MEDS: Acetylcysteine 20% Inhal Soln (4ml) INH SCH (13:14)
--- NOTE | 2018-12-10 16:04 | CP.CCUPN ---
CCU Subjective - Physician Review Subjective (Free Text): Extubated 2 days ago, but resp status still somewhat tenuous, placed on HFNC today by Pulm, oxygen up to 35% and 25 LPM to maintain SPO2 at 94%, she denies any chest discomfort, dizziness. Urine output at 750-1000 ml per 12H shift., and has been off Lasix. Now lying supine for HD (preferred by patient to avoid intolerance to neck discomfort from dialysis catheter. Febrile to 101 max overnight, SBP variable from 90s to 110s. HR 100 sinus. ROS: No other pertinent negs or positives on 10+ system review PMSFH: All other Nursing and physician documentation reviewed to date; no new pertinent info noted relevant to current medical problems. EXAM- HEENT: no icterus, no gaze preference NECK: No JVD visible given short neck and overall obesity, supple, carotids equal upstroke bilat/no bruit. Resolving nderlying ecchymoses and hematoma noted; no increase in size or extent from previous descriptions. CHEST: resolving upper chest ecchymoses noted extending form R shoulder across upper chest to left side; decreased BS at the bases, especially R base; no wheezes audible bilaterally. HEART: regular, distant, S1S2, no rubs or murmurs noted ABD: soft and obese, nontender, no guarding, no organomegaly, BS hypoactive. EXT: trace leg edema, no calf tenderness or palpable cords, distal pulses intact and symmetrical. RUEE PICC (done yesterday) NEURO: moves and exhibits + tone in all extremities. SKIN: no rashes, warm and dry LABS: WBC= 19.2 HGB= 7.1, confirmed PLTs= 340K 7.37/40/49 Coags: PTT = 44.4 Na= 137 K= 3.7 CL= 101 HCO3= 23 BUN/Cr= 78/4.3 BS= 98 CXR: (my interp)- bilat congestive changes, overall unchanged. IMPRESSION / MAJOR PROBLEMS NOW: 1. Acute hypercarbic resp failure 2 COPD Exacerbation /Bilat pneumonia, NSTEMI with Acute Pulm Edema 2. Influenza Viral resp infection, r/o superimposed bilateral bacterial PNA 3. GI bleed (r/o stress gastritis versus other colitis disorder) and diffuse upper chest and neck ecchymoses (from previous R subclavian and R IJ vein venipuncture attempts during TLC placement) from warfarin coagulopathy. 4. SEDA, r/o ATN, versus pre-renal Azotemia 5. s /p AVR, on AC with heparin drip 6. Morbid obesity PLAN: 1. PRBCs, but no active bleeding evident. 2. Heparin drip to continue. 3. HD for additional fluid removal and urea clearance. 4. Repeat blood cultures. Urine has WBCs 2 AIN. 5. No change in abx regimen.
[2018-12-10 16:34] LABS: SQUAMOUS EPITHIAL 12 /hpf (0-5); URINE AMORPHOUS SEDIMENT FEW /ul (<OCC); URINE BACTERIA FEW (<OCC); URINE BILIRUBIN NEGATIVE (NEGATIVE); URINE BLOOD MODERATE (NEGATIVE); URINE CLARITY TURBID (Clear); URINE COLOR AMBER (YELLOW); URINE GLUCOSE (UA) NEG (NEGATIVE); URINE LEUKOCYTE ESTERASE LARGE Leu/uL (Negative); URINE PROTEIN 30 mg/dL (NEGATIVE); URINE UROBILINOGEN 0.2-1.0 mg/dL (0.2-1.0); WBC CLUMPS MANY /hpf
--- NOTE | 2018-12-10 16:41 | CP.PCM.PN ---
Subjective - Date & Time of Evaluation Date of Evaluation: 12/10/18 Time of Evaluation: 16:40 - Subjective Subjective: no overnight events Objective - Vital Signs/Intake and Output Vital Signs (last 24 hours): Temp Pulse Resp BP Pulse Ox 98.2 F 100 H 17 116/65 95 12/10/18 16:09 12/10/18 16:09 12/10/18 16:09 12/10/18 16:09 12/10/18 16:00 Intake and Output: 12/10/18 12/10/18 06:59 18:59 Intake Total 1009 812 Output Total 750 100 Balance 259 712 - Medications Medications: Current Medications Acetaminophen (Tylenol 325mg Tab) 650 mg PO Q6H PRN PRN Reason: Pain (1-10) Last Admin: 12/10/18 03:00 Dose: 650 mg Acetaminophen (Tylenol 325mg Tab) 650 mg PO Q6H PRN PRN Reason: Fever >100.4 F Last Admin: 11/28/18 06:07 Dose: 650 mg Acetaminophen (Tylenol 160mg/5ml Oral Soln) 160 mg PO ONCE PRN PRN Reason: Flu symptoms Acetylcysteine (Acetylcysteine 20%) 2 ml INH DAILY [facility] Last Admin: 12/10/18 13:14 Dose: 2 ml Albuterol/Ipratropium (Duoneb 3 Mg/0.5 Mg (3 Ml) Ud) 3 ml INH RQ6 [facility] Last Admin: 12/10/18 13:12 Dose: 3 ml Atorvastatin Calcium (Lipitor) 40 mg PO DAILY [facility] Last Admin: 12/10/18 08:24 Dose: 40 mg Dimethicone (Proshield Plus Skin Protectant) 1 applic TOP Q8 [facility] Last Admin: 12/10/18 08:08 Dose: 1 applic Aztreonam 1 gm/ Sodium (Chloride) 100 mls @ 100 mls/hr IVPB Q12 [facility]; Protocol Last Admin: 12/10/18 08:02 Dose: 100 mls/hr Linezolid (Zyvox 600mg/300ml D5w) 600 mg in 300 mls @ 300 mls/hr IVPB Q12 [facility]; Protocol Last Admin: 12/10/18 08:26 Dose: 300 mls/hr Micafungin Sodium 100 mg/ (Sodium Chloride) 100 mls @ 100 mls/hr IVPB DAILY [facility]; Protocol Last Admin: 12/10/18 08:07 Dose: 100 mls/hr Heparin Sodium/Dextrose (Heparin 25,000 Units/250ml In D5w) 25,000 units in 250 mls @ 19 mls/hr IV .[id number] [facility]; Protocol Last Admin: 12/10/18 12:58 Dose: 19 mls/hr Metoprolol Tartrate (Lopressor) 12.5 mg PO Q12 [facility] Last Admin: 12/10/18 08:24 Dose: Not Given Morphine Sulfate (Morphine) 4 mg IVP Q4 PRN PRN Reason: Agitation Last Admin: 12/10/18 02:10 Dose: 4 mg Nystatin (Nystop Topical Powder) 1 applic TOP TID [facility] Last Admin: 12/10/18 13:17 Dose: 1 applic Pantoprazole Sodium (Protonix Inj) 40 mg IVP Q12 [facility] Last Admin: 12/10/18 08:25 Dose: 40 mg - Labs Labs: 12/10/18 11:30 12/10/18 05:00 PT 12.0 Seconds (9.8-13.1) 12/09/18 10:30 INR 1.1 12/09/18 10:30 APTT 44.4 Seconds (25.6-37.1) H 12/10/18 05:00 - Neck Exam Neck Exam: Normal Inspection - Respiratory Exam Respiratory Exam: Rhonchi, NORMAL BREATHING PATTERN - Cardiovascular Exam Cardiovascular Exam: REGULAR RHYTHM - GI/Abdominal Exam GI & Abdominal Exam: Distended, Soft, Normal Bowel Sounds Assessment and Plan - Assessment and Plan (Free Text) Assessment: 58 yo female with AR and PNA and anemia no bleeding conservative management until she is stable enough for egd (off heparin drip)
--- NOTE | 2018-12-10 19:57 | CP.PCM.PN ---
Subjective - Date & Time of Evaluation Date of Evaluation: 12/10/18 Time of Evaluation: 12:30 - Subjective Subjective: Patient on high flow O2; otherwise, not agitated; Objective - Vital Signs/Intake and Output Vital Signs (last 24 hours): Temp Pulse Resp BP Pulse Ox 98.2 F 102 H 21 117/53 L 95 12/10/18 17:47 12/10/18 18:00 12/10/18 19:21 12/10/18 18:00 12/10/18 18:00 Intake and Output: 12/10/18 12/11/18 18:59 06:59 Intake Total 1028 Output Total 2100 Balance -1072 - Medications Medications: Current Medications Acetaminophen (Tylenol 325mg Tab) 650 mg PO Q6H PRN PRN Reason: Pain (1-10) Last Admin: 12/10/18 03:00 Dose: 650 mg Acetaminophen (Tylenol 325mg Tab) 650 mg PO Q6H PRN PRN Reason: Fever >100.4 F Last Admin: 11/28/18 06:07 Dose: 650 mg Acetaminophen (Tylenol 160mg/5ml Oral Soln) 160 mg PO ONCE PRN PRN Reason: Flu symptoms Acetylcysteine (Acetylcysteine 20%) 2 ml INH DAILY [facility] Last Admin: 12/10/18 13:14 Dose: 2 ml Albuterol/Ipratropium (Duoneb 3 Mg/0.5 Mg (3 Ml) Ud) 3 ml INH RQ6 [facility] Last Admin: 12/10/18 19:21 Dose: 3 ml Atorvastatin Calcium (Lipitor) 40 mg PO DAILY [facility] Last Admin: 12/10/18 08:24 Dose: 40 mg Dimethicone (Proshield Plus Skin Protectant) 1 applic TOP Q8 [facility] Last Admin: 12/10/18 18:36 Dose: 1 applic Aztreonam 1 gm/ Sodium (Chloride) 100 mls @ 100 mls/hr IVPB Q12 [facility]; Protocol Last Admin: 12/10/18 08:02 Dose: 100 mls/hr Linezolid (Zyvox 600mg/300ml D5w) 600 mg in 300 mls @ 300 mls/hr IVPB Q12 [facility]; Protocol Last Admin: 12/10/18 08:26 Dose: 300 mls/hr Micafungin Sodium 100 mg/ (Sodium Chloride) 100 mls @ 100 mls/hr IVPB DAILY [facility]; Protocol Last Admin: 12/10/18 08:07 Dose: 100 mls/hr Heparin Sodium/Dextrose (Heparin 25,000 Units/250ml In D5w) 25,000 units in 250 mls @ 19 mls/hr IV .[id number] [facility]; Protocol Last Admin: 12/10/18 12:58 Dose: 19 mls/hr Metoprolol Tartrate (Lopressor) 12.5 mg PO Q12 [facility] Last Admin: 12/10/18 08:24 Dose: Not Given Morphine Sulfate (Morphine) 4 mg IVP Q4 PRN PRN Reason: Agitation Last Admin: 12/10/18 02:10 Dose: 4 mg Nystatin (Nystop Topical Powder) 1 applic TOP TID [facility] Last Admin: 12/10/18 18:35 Dose: 1 applic Pantoprazole Sodium (Protonix Inj) 40 mg IVP Q12 [facility] Last Admin: 12/10/18 08:25 Dose: 40 mg - Labs Labs: 12/10/18 11:30 12/10/18 05:00 PT 12.0 Seconds (9.8-13.1) 12/09/18 10:30 INR 1.1 12/09/18 10:30 APTT 44.4 Seconds (25.6-37.1) H 12/10/18 05:00 - Constitutional Appears: Non-toxic, No Acute Distress - Eye Exam Eye Exam: Normal appearance - Respiratory Exam Respiratory Exam: Wheezes. absent: Respiratory Distress - Cardiovascular Exam Cardiovascular Exam: RRR, +S1, +S2 - GI/Abdominal Exam GI & Abdominal Exam: Soft. absent: Distended - Extremities Exam Additional comments: edema of dependent areas - Neurological Exam Neurological Exam: Alert, Awake - Psychiatric Exam Psychiatric exam: absent: Agitated - Skin Skin Exam: Warm. absent: Cyanosis Assessment and Plan (1) Renal failure, acute Assessment & Plan: Non-oliguric renal failure; ATN and possible AIN; off lasix drip since ~24 hrs; mild increase in serum creatinine since yesterday; stable electrolyte status but still with significantly increased FIO2 requirement s/p extubation (on high flow O2); CXR reviewed; discussed with CCM attending, dialyzing to help decrease any component of fluid overload afffecting respiratory status; -goal UF 2-2.5L as tolerated today; -2 u prbc on HD with hgb again trending downward; will help with maintaining BP which has been borderline low at time; -awaiting repeat stool for occult blood; -will watch for recurrence of fever; if persistent, will need to consider line holiday; -f/u repeat blood culture; -avoid nephrotoxic agents (nursing staff instructed to avoid NSAIDS for fever); -consider changing PPI to H2 jose roberto (due to suspicion for AIN); -will assess for need for further HD tomorrow; Status: Acute (2) Acute hypoxemic respiratory failure Status: Acute (3) Anemia Status: Acute (4) Hypotension Status: Acute (5) Sepsis Status: Acute
--- NOTE | 2018-12-10 20:44 | CP.PCM.PN ---
<Celestine Calhoun - Last Filed: 12/10/18 20:37> Subjective - Date & Time of Evaluation Date of Evaluation: 12/10/18 Time of Evaluation: 09:00 - Subjective Subjective: Celestine Calhoun DO PGY1 - Internal Medicine [employer] - Cardiology Consult Note Seen and examined at bedside this morning No acute events reported overnight; On Hi-Flow NC. Still somnolent; Follows command but requires frequent redirection Objective - Vital Signs/Intake and Output Vital Signs (last 24 hours): Temp Pulse Resp BP Pulse Ox 98.2 F 102 H 21 117/53 L 95 12/10/18 17:47 12/10/18 18:00 12/10/18 19:21 12/10/18 18:00 12/10/18 18:00 Intake and Output: 12/10/18 12/11/18 18:59 06:59 Intake Total 1028 Output Total 2100 Balance -1072 - Medications Medications: Current Medications Acetaminophen (Tylenol 325mg Tab) 650 mg PO Q6H PRN PRN Reason: Pain (1-10) Last Admin: 12/10/18 03:00 Dose: 650 mg Acetaminophen (Tylenol 325mg Tab) 650 mg PO Q6H PRN PRN Reason: Fever >100.4 F Last Admin: 11/28/18 06:07 Dose: 650 mg Acetaminophen (Tylenol 160mg/5ml Oral Soln) 160 mg PO ONCE PRN PRN Reason: Flu symptoms Acetylcysteine (Acetylcysteine 20%) 2 ml INH DAILY [facility] Last Admin: 12/10/18 13:14 Dose: 2 ml Albuterol/Ipratropium (Duoneb 3 Mg/0.5 Mg (3 Ml) Ud) 3 ml INH RQ6 [facility] Last Admin: 12/10/18 19:21 Dose: 3 ml Atorvastatin Calcium (Lipitor) 40 mg PO DAILY [facility] Last Admin: 12/10/18 08:24 Dose: 40 mg Dimethicone (Proshield Plus Skin Protectant) 1 applic TOP Q8 [facility] Last Admin: 12/10/18 18:36 Dose: 1 applic Aztreonam 1 gm/ Sodium (Chloride) 100 mls @ 100 mls/hr IVPB Q12 [facility]; Protocol Last Admin: 12/10/18 08:02 Dose: 100 mls/hr Linezolid (Zyvox 600mg/300ml D5w) 600 mg in 300 mls @ 300 mls/hr IVPB Q12 [facility]; Protocol Last Admin: 12/10/18 08:26 Dose: 300 mls/hr Micafungin Sodium 100 mg/ (Sodium Chloride) 100 mls @ 100 mls/hr IVPB DAILY [facility]; Protocol Last Admin: 12/10/18 08:07 Dose: 100 mls/hr Heparin Sodium/Dextrose (Heparin 25,000 Units/250ml In D5w) 25,000 units in 250 mls @ 19 mls/hr IV .[id number] [facility]; Protocol Last Admin: 12/10/18 12:58 Dose: 19 mls/hr Metoprolol Tartrate (Lopressor) 12.5 mg PO Q12 [facility] Last Admin: 12/10/18 08:24 Dose: Not Given Morphine Sulfate (Morphine) 4 mg IVP Q4 PRN PRN Reason: Agitation Last Admin: 12/10/18 02:10 Dose: 4 mg Nystatin (Nystop Topical Powder) 1 applic TOP TID [facility] Last Admin: 12/10/18 18:35 Dose: 1 applic Pantoprazole Sodium (Protonix Inj) 40 mg IVP Q12 [facility] Last Admin: 12/10/18 08:25 Dose: 40 mg - Labs Labs: 12/10/18 11:30 12/10/18 05:00 PT 12.0 Seconds (9.8-13.1) 12/09/18 10:30 INR 1.1 12/09/18 10:30 APTT 44.4 Seconds (25.6-37.1) H 12/10/18 05:00 - Constitutional Appears: Non-toxic, No Acute Distress - Head Exam Head Exam: ATRAUMATIC, NORMOCEPHALIC - Eye Exam Eye Exam: EOMI, Normal appearance, PERRL. absent: Scleral icterus - ENT Exam Additional comments: Moist mucous membrane - Respiratory Exam Respiratory Exam: Rhonchi, Wheezes, NORMAL BREATHING PATTERN. absent: Clear to Ausculation Bilateral Additional comments: - Cardiovascular Exam Cardiovascular Exam: RRR, +S1, +S2 Additional comments: No click appreciated on exam - GI/Abdominal Exam GI & Abdominal Exam: Soft. absent: Tenderness Additional comments: Obese - Extremities Exam Additional comments: BL LE PT/DP 2+ Assessment and Plan (1) CAP (community acquired pneumonia) Status: Acute (2) CHF exacerbation Status: Acute (3) NSTEMI (non-ST elevated myocardial infarction) Status: Acute (4) Morbid obesity Status: Chronic (5) COPD (chronic obstructive pulmonary disease) Status: Suspected - Assessment and Plan (Free Text) Plan: C/w Toprolol 12.5 Q12 Consider Losartan C/w Heparin for Mechanical valve Hx Further reccs per Dr. Sutton to follow. <Isaak Sutton - Last Filed: 12/11/18 22:05> Objective - Vital Signs/Intake and Output Vital Signs (last 24 hours): Temp Pulse Resp BP Pulse Ox 98.9 F 96 H 20 111/47 L 99 12/11/18 16:00 12/11/18 21:32 12/11/18 19:11 12/11/18 21:32 12/11/18 18:00 Intake and Output: 12/11/18 12/12/18 18:59 06:59 Intake Total 500 Output Total 800 Balance -300 - Medications Medications: Current Medications Acetaminophen (Tylenol 160mg/5ml Oral Soln) 160 mg PO ONCE PRN PRN Reason: Flu symptoms Acetylcysteine (Acetylcysteine 20%) 2 ml INH DAILY [facility] Last Admin: 12/11/18 07:36 Dose: 2 ml Albuterol/Ipratropium (Duoneb 3 Mg/0.5 Mg (3 Ml) Ud) 3 ml INH RQ6 [facility] Last Admin: 12/11/18 19:11 Dose: 3 ml Aztreonam 1 gm/ Sodium (Chloride) 100 mls @ 100 mls/hr IVPB Q12 [facility]; Protocol Last Admin: 12/11/18 21:30 Dose: 100 mls/hr Linezolid (Zyvox 600mg/300ml D5w) 600 mg in 300 mls @ 300 mls/hr IVPB Q12 [facility]; Protocol Last Admin: 12/11/18 21:33 Dose: 300 mls/hr Micafungin Sodium 100 mg/ (Sodium Chloride) 100 mls @ 100 mls/hr IVPB DAILY [facility]; Protocol Last Admin: 12/11/18 08:29 Dose: 100 mls/hr Heparin Sodium/Dextrose (Heparin 25,000 Units/250ml In D5w) 25,000 units in 250 mls @ 19 mls/hr IV .[id number] [facility]; Protocol Last Admin: 12/11/18 17:07 Dose: 19 mls/hr Metoprolol Tartrate (Lopressor) 12.5 mg PO Q12 [facility] Last Admin: 12/11/18 21:32 Dose: 12.5 mg Pantoprazole Sodium (Protonix Inj) 40 mg IVP Q12 [facility] Last Admin: 12/11/18 21:30 Dose: 40 mg - Labs Labs: 12/11/18 05:20 12/11/18 05:20 PT 12.0 Seconds (9.8-13.1) 12/09/18 10:30 INR 1.1 12/09/18 10:30 APTT 46.0 Seconds (25.6-37.1) H 12/11/18 06:54 Assessment and Plan (1) NSTEMI (non-ST elevated myocardial infarction) Status: Acute (2) CAP (community acquired pneumonia) Status: Acute (3) CHF exacerbation Status: Acute (4) Respiratory distress Status: Acute (5) Respiratory failure with hypoxia and hypercapnia Status: Acute (6) History of aortic valve replacement Status: Chronic (7) Morbid obesity Status: Chronic (8) COPD (chronic obstructive pulmonary disease) Status: Suspected Attending/Attestation - Attestation I have personally seen and examined this patient.: Yes I have fully participated in the care of the patient.: Yes I have reviewed all pertinent clinical information, including history, physical exam and plan: Yes
--- NOTE | 2018-12-10 21:58 | CP.PCM.PN ---
Subjective - Date & Time of Evaluation Date of Evaluation: 12/10/18 Time of Evaluation: 19:00 - Subjective Subjective: No complaints Objective - Vital Signs/Intake and Output Vital Signs (last 24 hours): Temp Pulse Resp BP Pulse Ox 98.2 F 102 H 21 117/53 L 95 12/10/18 17:47 12/10/18 18:00 12/10/18 19:21 12/10/18 18:00 12/10/18 18:00 Intake and Output: 12/10/18 12/11/18 18:59 06:59 Intake Total 1028 Output Total 2100 Balance -1072 - Medications Medications: Current Medications Acetaminophen (Tylenol 325mg Tab) 650 mg PO Q6H PRN PRN Reason: Pain (1-10) Last Admin: 12/10/18 03:00 Dose: 650 mg Acetaminophen (Tylenol 325mg Tab) 650 mg PO Q6H PRN PRN Reason: Fever >100.4 F Last Admin: 11/28/18 06:07 Dose: 650 mg Acetaminophen (Tylenol 160mg/5ml Oral Soln) 160 mg PO ONCE PRN PRN Reason: Flu symptoms Acetylcysteine (Acetylcysteine 20%) 2 ml INH DAILY [facility] Last Admin: 12/10/18 13:14 Dose: 2 ml Albuterol/Ipratropium (Duoneb 3 Mg/0.5 Mg (3 Ml) Ud) 3 ml INH RQ6 [facility] Last Admin: 12/10/18 19:21 Dose: 3 ml Atorvastatin Calcium (Lipitor) 40 mg PO DAILY [facility] Last Admin: 12/10/18 08:24 Dose: 40 mg Dimethicone (Proshield Plus Skin Protectant) 1 applic TOP Q8 [facility] Last Admin: 12/10/18 18:36 Dose: 1 applic Aztreonam 1 gm/ Sodium (Chloride) 100 mls @ 100 mls/hr IVPB Q12 [facility]; Protocol Last Admin: 12/10/18 08:02 Dose: 100 mls/hr Linezolid (Zyvox 600mg/300ml D5w) 600 mg in 300 mls @ 300 mls/hr IVPB Q12 [facility]; Protocol Last Admin: 12/10/18 08:26 Dose: 300 mls/hr Micafungin Sodium 100 mg/ (Sodium Chloride) 100 mls @ 100 mls/hr IVPB DAILY [facility]; Protocol Last Admin: 12/10/18 08:07 Dose: 100 mls/hr Heparin Sodium/Dextrose (Heparin 25,000 Units/250ml In D5w) 25,000 units in 250 mls @ 19 mls/hr IV .[id number] [facility]; Protocol Last Admin: 12/10/18 12:58 Dose: 19 mls/hr Metoprolol Tartrate (Lopressor) 12.5 mg PO Q12 [facility] Last Admin: 12/10/18 08:24 Dose: Not Given Morphine Sulfate (Morphine) 4 mg IVP Q4 PRN PRN Reason: Agitation Last Admin: 12/10/18 02:10 Dose: 4 mg Nystatin (Nystop Topical Powder) 1 applic TOP TID [facility] Last Admin: 12/10/18 18:35 Dose: 1 applic Pantoprazole Sodium (Protonix Inj) 40 mg IVP Q12 [facility] Last Admin: 12/10/18 08:25 Dose: 40 mg - Labs Labs: 12/10/18 11:30 12/10/18 05:00 PT 12.0 Seconds (9.8-13.1) 12/09/18 10:30 INR 1.1 12/09/18 10:30 APTT 44.4 Seconds (25.6-37.1) H 12/10/18 05:00 - Head Exam Head Exam: ATRAUMATIC - Eye Exam Eye Exam: Normal appearance - ENT Exam ENT Exam: Mucous Membranes Dry - Respiratory Exam Respiratory Exam: Decreased Breath Sounds - Cardiovascular Exam Cardiovascular Exam: +S1, +S2 - GI/Abdominal Exam GI & Abdominal Exam: Normal Bowel Sounds Assessment and Plan (1) Anemia Assessment & Plan: H/H slowly declining GI blood loss - remains on heparin drip given mechanical AVR anemia of chronic disease transfusion support PRN Status: Acute (2) Coagulopathy Assessment & Plan: anticoagulation nutritional component s/p vit k was on coumadin in the past Status: Acute (3) Leukocytosis Assessment & Plan: on antibiotics Status: Acute
[2018-12-11] MEDS: Heparin 25,000units in D5W 25,000 UNITS/250 ML BAG IV SCH ×2 (00:40→17:07)
[2018-12-11] MEDS: Albuterol-Ipratrop 3 mg / 0.5 (3 ml) UD INH SCH ×4 (01:15→19:11)
[2018-12-11] MEDS: Proshield Plus GEL TOP SCH ×3 (01:45→16:57)
[2018-12-11 06:07] LABS: HEMOGLOBIN 9.1 g/dL (12.0-16.0); MEAN CELL VOLUME 93.3 fl (81.0-99.0); MEAN CORPUSCULAR HEMOGLOBIN 31.1 pg (27.0-31.0); MEAN CORPUSCULAR HGB CONC 33.4 g/dL (33.0-37.0); RBC 2.93 Mil/uL (3.80-5.20); RED CELL DISTRIBUTION WIDTH 15.4 % (11.5-14.5)
[2018-12-11 07:16] LABS: CALCIUM 8.6 mg/dL (8.4-10.2)
[2018-12-11] MEDS: Acetylcysteine 20% Inhal Soln (4ml) INH SCH (07:36)
[2018-12-11] MEDS: Linezolid 600 mg in D5W 300 ml 600 MG/300 ML BAG IVPB SCH ×2 (08:27→21:33)
[2018-12-11] MEDS: Aztreonam 1 GM in Sodium Chloride 0.9% 100 ML IVPB SCH ×2 (08:27→21:30)
[2018-12-11] MEDS: Micafungin 100 MG in Sodium Chloride 0.9% 100 ML IVPB SCH (08:29)
--- NOTE | 2018-12-11 09:45 | CP.CCUPN ---
CCU Subjective - Physician Review Subjective (Free Text): Extubated 3 days ago, more talkative and conversant today, following commands, demonstrates ability to lift head off pillow and raise both arms, underwent HD yesterday with removal of 1.5 L fluid and recd 2 units PRBCs. Urine output approx. 100 ml overnight, overall fluid balance is negative 0.3L. Febrile to 101 max last 24H, now mostly 98-99.6F, SBP improved and variable from 100s to 120s. HR 90s sinus. Just now switched to nasal cannula at 3 LPM, refusing to keep HFNC on, SPo2 98% on NC so far. ROS: No other pertinent negs or positives on 10+ system review PMSFH: All other Nursing and physician documentation reviewed to date; no new pertinent info noted relevant to current medical problems. EXAM- HEENT: no icterus, no gaze preference NECK: No JVD visible given short neck and overall obesity, supple, carotids equal upstroke bilat/no bruit. Resolving nderlying ecchymoses and hematoma noted; no increase in size or extent from previous descriptions. CHEST: resolving upper chest ecchymoses noted extending form R shoulder across upper chest to left side; decreased BS at the bases, especially R base; no wheezes audible bilaterally. HEART: regular, distant, S1S2, no rubs or murmurs noted ABD: soft and obese, nontender, no guarding, no organomegaly, BS hypoactive. EXT: trace leg edema, no calf tenderness or palpable cords, distal pulses intact and symmetrical. RUEE PICC (done yesterday) NEURO: moves and exhibits + tone in all extremities. SKIN: no rashes, warm and dry LABS: WBC= 18.0 HGB= 9.1 PLTs= 357K Na= 137 K= 4.0 CL= 106 HCO3= 21 BUN/Cr= 54/2.8 BS= 99 IMPRESSION / MAJOR PROBLEMS NOW: 1. Acute hypercarbic resp failure 2 COPD Exacerbation /Bilat pneumonia, NSTEMI with Acute Pulm Edema 2. Influenza Viral resp infection, r/o superimposed bilateral bacterial PNA 3. GI bleed (r/o stress gastritis versus other colitis disorder) and diffuse upper chest and neck ecchymoses (from previous R subclavian and R IJ vein venipuncture attempts during TLC placement) from warfarin coagulopathy. 4. SEDA, r/o ATN, AIN 5. s /p AVR, on AC with heparin drip 6. Morbid obesity PLAN: 1. NC oxygen for now as tolerated. 2. Heparin drip. Check a BNP level. 3. Further HD as per Nephro. 4. Motivation for patient to mobilize OOB; + deconditioned status, needs aggressive PT as tolerated.
--- NOTE | 2018-12-11 10:32 | CP.PCM.PN ---
Subjective - Subjective Subjective: Patient seen and examined at bedside. No acute events recorded overnight. Today patient voices complaints of shortness of breath . she has no complaints of chest pain at the time. Patient continues to be extubated and off of sedation Objective - Vital Signs/Intake and Output Vital Signs (last 24 hours): Temp Pulse Resp BP Pulse Ox 99.2 F 92 H 17 107/49 L 92 L 12/11/18 08:00 12/11/18 08:00 12/11/18 08:00 12/11/18 08:00 12/11/18 08:00 Intake and Output: 12/11/18 12/11/18 06:59 18:59 Intake Total 878 500 Output Total 150 Balance 728 500 - Medications Medications: Current Medications Acetaminophen (Tylenol 160mg/5ml Oral Soln) 160 mg PO ONCE PRN PRN Reason: Flu symptoms Acetylcysteine (Acetylcysteine 20%) 2 ml INH DAILY [facility] Last Admin: 12/11/18 07:36 Dose: 2 ml Albuterol/Ipratropium (Duoneb 3 Mg/0.5 Mg (3 Ml) Ud) 3 ml INH RQ6 [facility] Last Admin: 12/11/18 07:37 Dose: 3 ml Dimethicone (Proshield Plus Skin Protectant) 1 applic TOP Q8 [facility] Last Admin: 12/11/18 08:30 Dose: 1 applic Aztreonam 1 gm/ Sodium (Chloride) 100 mls @ 100 mls/hr IVPB Q12 [facility]; Protocol Last Admin: 12/11/18 08:27 Dose: 100 mls/hr Linezolid (Zyvox 600mg/300ml D5w) 600 mg in 300 mls @ 300 mls/hr IVPB Q12 [facility]; Protocol Last Admin: 12/11/18 08:27 Dose: 300 mls/hr Micafungin Sodium 100 mg/ (Sodium Chloride) 100 mls @ 100 mls/hr IVPB DAILY [facility]; Protocol Last Admin: 12/11/18 08:29 Dose: 100 mls/hr Heparin Sodium/Dextrose (Heparin 25,000 Units/250ml In D5w) 25,000 units in 250 mls @ 19 mls/hr IV .[id number] [facility]; Protocol Last Admin: 12/10/18 12:58 Dose: 19 mls/hr Metoprolol Tartrate (Lopressor) 12.5 mg PO Q12 [facility] Last Admin: 12/10/18 21:43 Dose: 12.5 mg Morphine Sulfate (Morphine) 4 mg IVP Q4 PRN PRN Reason: Agitation Last Admin: 12/10/18 02:10 Dose: 4 mg Nystatin (Nystop Topical Powder) 1 applic TOP TID [facility] Last Admin: 12/10/18 18:35 Dose: 1 applic Pantoprazole Sodium (Protonix Inj) 40 mg IVP Q12 [facility] Last Admin: 12/11/18 08:49 Dose: 40 mg - Labs Labs: 12/11/18 05:20 12/11/18 05:20 PT 12.0 Seconds (9.8-13.1) 12/09/18 10:30 INR 1.1 12/09/18 10:30 APTT 46.0 Seconds (25.6-37.1) H 12/11/18 06:54 Assessment and Plan (1) CAP (community acquired pneumonia) Status: Acute (2) CHF exacerbation Status: Acute (3) NSTEMI (non-ST elevated myocardial infarction) Status: Acute (4) Morbid obesity Status: Chronic (5) COPD (chronic obstructive pulmonary disease) Status: Suspected
--- NOTE | 2018-12-11 10:36 | CP.PCM.PN ---
<Celestine Calhoun - Last Filed: 12/11/18 19:35> Subjective - Date & Time of Evaluation Date of Evaluation: 12/11/18 Time of Evaluation: 11:00 - Subjective Subjective: Celestine Calhoun DO PGY1 - Internal Medicine Birth Certificate Clerk - Cardiology Note for Dr. Sutton Patient seen and examined at bedside. No acute events recorded overnight; afebrile overnight. Today patient voices complaints of shortness of breath, she has no complaints of chest pain at the time. Less lethargic than day prior. Objective - Vital Signs/Intake and Output Vital Signs (last 24 hours): Temp Pulse Resp BP Pulse Ox 99.2 F 92 H 17 107/49 L 92 L 12/11/18 08:00 12/11/18 08:00 12/11/18 08:00 12/11/18 08:00 12/11/18 08:00 Intake and Output: 12/11/18 12/11/18 06:59 18:59 Intake Total 878 500 Output Total 150 Balance 728 500 - Medications Medications: Current Medications Acetaminophen (Tylenol 160mg/5ml Oral Soln) 160 mg PO ONCE PRN PRN Reason: Flu symptoms Acetylcysteine (Acetylcysteine 20%) 2 ml INH DAILY [facility] Last Admin: 12/11/18 07:36 Dose: 2 ml Albuterol/Ipratropium (Duoneb 3 Mg/0.5 Mg (3 Ml) Ud) 3 ml INH RQ6 [facility] Last Admin: 12/11/18 07:37 Dose: 3 ml Dimethicone (Proshield Plus Skin Protectant) 1 applic TOP Q8 [facility] Last Admin: 12/11/18 08:30 Dose: 1 applic Aztreonam 1 gm/ Sodium (Chloride) 100 mls @ 100 mls/hr IVPB Q12 [facility]; Protocol Last Admin: 12/11/18 08:27 Dose: 100 mls/hr Linezolid (Zyvox 600mg/300ml D5w) 600 mg in 300 mls @ 300 mls/hr IVPB Q12 [facility]; Protocol Last Admin: 12/11/18 08:27 Dose: 300 mls/hr Micafungin Sodium 100 mg/ (Sodium Chloride) 100 mls @ 100 mls/hr IVPB DAILY [facility]; Protocol Last Admin: 12/11/18 08:29 Dose: 100 mls/hr Heparin Sodium/Dextrose (Heparin 25,000 Units/250ml In D5w) 25,000 units in 250 mls @ 19 mls/hr IV .[id number] [facility]; Protocol Last Admin: 12/10/18 12:58 Dose: 19 mls/hr Metoprolol Tartrate (Lopressor) 12.5 mg PO Q12 [facility] Last Admin: 12/10/18 21:43 Dose: 12.5 mg Morphine Sulfate (Morphine) 4 mg IVP Q4 PRN PRN Reason: Agitation Last Admin: 12/10/18 02:10 Dose: 4 mg Nystatin (Nystop Topical Powder) 1 applic TOP TID [facility] Last Admin: 12/10/18 18:35 Dose: 1 applic Pantoprazole Sodium (Protonix Inj) 40 mg IVP Q12 [facility] Last Admin: 12/11/18 08:49 Dose: 40 mg - Labs Labs: 12/11/18 05:20 12/11/18 05:20 PT 12.0 Seconds (9.8-13.1) 12/09/18 10:30 INR 1.1 12/09/18 10:30 APTT 46.0 Seconds (25.6-37.1) H 12/11/18 06:54 - Constitutional Appears: Non-toxic, No Acute Distress - Head Exam Head Exam: ATRAUMATIC, NORMOCEPHALIC - Eye Exam Eye Exam: EOMI, Normal appearance, PERRL. absent: Scleral icterus - ENT Exam Additional comments: Moist mucous membrane - Respiratory Exam Respiratory Exam: Rhonchi, Wheezes, NORMAL BREATHING PATTERN. absent: Clear to Ausculation Bilateral Additional comments: - Cardiovascular Exam Cardiovascular Exam: RRR, +S1, +S2 Additional comments: - GI/Abdominal Exam GI & Abdominal Exam: Soft. absent: Tenderness Additional comments: Obese - Extremities Exam Additional comments: BL LE PT/DP 2+ Assessment and Plan (1) CAP (community acquired pneumonia) Status: Acute (2) CHF exacerbation Status: Acute (3) NSTEMI (non-ST elevated myocardial infarction) Status: Acute (4) Morbid obesity Status: Chronic (5) COPD (chronic obstructive pulmonary disease) Status: Suspected - Assessment and Plan (Free Text) Plan: Continue current medical management No further changes at this time from cardiovascular standpoint C/w Toprolol 12.5 Q12 C/w AC w/ heparin for hx of mechanical valve; Will need to bridge to warfarin - Hb has been stable Further reccs per Dr. Sutton <Isaak Sutton - Last Filed: 12/11/18 22:04> Objective - Vital Signs/Intake and Output Vital Signs (last 24 hours): Temp Pulse Resp BP Pulse Ox 98.9 F 96 H 20 111/47 L 99 12/11/18 16:00 12/11/18 21:32 12/11/18 19:11 12/11/18 21:32 12/11/18 18:00 Intake and Output: 12/11/18 12/12/18 18:59 06:59 Intake Total 500 Output Total 800 Balance -300 - Medications Medications: Current Medications Acetaminophen (Tylenol 160mg/5ml Oral Soln) 160 mg PO ONCE PRN PRN Reason: Flu symptoms Acetylcysteine (Acetylcysteine 20%) 2 ml INH DAILY [facility] Last Admin: 12/11/18 07:36 Dose: 2 ml Albuterol/Ipratropium (Duoneb 3 Mg/0.5 Mg (3 Ml) Ud) 3 ml INH RQ6 [facility] Last Admin: 12/11/18 19:11 Dose: 3 ml Aztreonam 1 gm/ Sodium (Chloride) 100 mls @ 100 mls/hr IVPB Q12 [facility]; Protocol Last Admin: 12/11/18 21:30 Dose: 100 mls/hr Linezolid (Zyvox 600mg/300ml D5w) 600 mg in 300 mls @ 300 mls/hr IVPB Q12 [facility]; Protocol Last Admin: 12/11/18 21:33 Dose: 300 mls/hr Micafungin Sodium 100 mg/ (Sodium Chloride) 100 mls @ 100 mls/hr IVPB DAILY [facility]; Protocol Last Admin: 12/11/18 08:29 Dose: 100 mls/hr Heparin Sodium/Dextrose (Heparin 25,000 Units/250ml In D5w) 25,000 units in 250 mls @ 19 mls/hr IV .[id number] [facility]; Protocol Last Admin: 12/11/18 17:07 Dose: 19 mls/hr Metoprolol Tartrate (Lopressor) 12.5 mg PO Q12 [facility] Last Admin: 12/11/18 21:32 Dose: 12.5 mg Pantoprazole Sodium (Protonix Inj) 40 mg IVP Q12 [facility] Last Admin: 12/11/18 21:30 Dose: 40 mg - Labs Labs: 12/11/18 05:20 12/11/18 05:20 PT 12.0 Seconds (9.8-13.1) 12/09/18 10:30 INR 1.1 12/09/18 10:30 APTT 46.0 Seconds (25.6-37.1) H 12/11/18 06:54 Assessment and Plan (1) NSTEMI (non-ST elevated myocardial infarction) Status: Acute (2) CAP (community acquired pneumonia) Status: Acute (3) CHF exacerbation Status: Acute (4) Respiratory distress Status: Acute (5) Respiratory failure with hypoxia and hypercapnia Status: Acute (6) History of aortic valve replacement Status: Chronic (7) Morbid obesity Status: Chronic (8) COPD (chronic obstructive pulmonary disease) Status: Suspected Attending/Attestation - Attestation I have personally seen and examined this patient.: Yes I have fully participated in the care of the patient.: Yes I have reviewed all pertinent clinical information, including history, physical exam and plan: Yes
--- NOTE | 2018-12-11 11:36 | CP.PCM.PN ---
Subjective - Date & Time of Evaluation Date of Evaluation: 12/11/18 Time of Evaluation: 11:27 - Subjective Subjective: Seen on rounds in the ICU. Interim events were reviewed. Case was discussed with the faucets assembler. No chest x-ray done this morning. Presently on regular nasal canula at 3 LPM with SpO2 100%. Refused to keep HFNC on yesterday. Apparently remained on standard NC overnight as well. She has remained afebrile over the last 24 hours. Low normal BP and mildly tachycardic. Transfused PRBCs, Hgb up to 9.1, WBC 18 (19). Asleep at present. Opens eyes with light touch. No respiratory muscle recruitment, no IC retractions. Limited info from chest percussion (obese). No subcutaneous emphysema. Breath sounds are diminished equally in both lungs. Few dry rales in dependant regions of both lower lobes. No audible wheezing or bronchial breathing. Heart sounds are distant, rhythm regular 90 BPM. Trace dependant edema, no cyanosis. Ecchymosis appears to be slowly resolving. Monitor EtCO2. Continue aerosol therapy. Supplemental nasal O2 at 3 LPM. D/C high flow nasal canula. BiPAP mask ventilator at bedside on standby. Mobilize/PT as tolerated. PCXR in AM tomorrow. Objective - Vital Signs/Intake and Output Vital Signs (last 24 hours): Temp Pulse Resp BP Pulse Ox 99.2 F 91 H 17 91/46 L 97 12/11/18 08:00 12/11/18 10:00 12/11/18 10:00 12/11/18 10:00 12/11/18 10:00 Intake and Output: 12/10/18 12/11/18 23:59 11:59 Intake Total 1108 902 Output Total 1999 150 Balance -892 752 - Medications Medications: Current Medications Acetaminophen (Tylenol 160mg/5ml Oral Soln) 160 mg PO ONCE PRN PRN Reason: Flu symptoms Acetylcysteine (Acetylcysteine 20%) 2 ml INH DAILY [facility] Last Admin: 12/11/18 07:36 Dose: 2 ml Albuterol/Ipratropium (Duoneb 3 Mg/0.5 Mg (3 Ml) Ud) 3 ml INH RQ6 [facility] Last Admin: 12/11/18 07:37 Dose: 3 ml Dimethicone (Proshield Plus Skin Protectant) 1 applic TOP Q8 [facility] Last Admin: 12/11/18 08:30 Dose: 1 applic Aztreonam 1 gm/ Sodium (Chloride) 100 mls @ 100 mls/hr IVPB Q12 [facility]; Protocol Last Admin: 12/11/18 08:27 Dose: 100 mls/hr Linezolid (Zyvox 600mg/300ml D5w) 600 mg in 300 mls @ 300 mls/hr IVPB Q12 [facility]; Protocol Last Admin: 12/11/18 08:27 Dose: 300 mls/hr Micafungin Sodium 100 mg/ (Sodium Chloride) 100 mls @ 100 mls/hr IVPB DAILY [facility]; Protocol Last Admin: 12/11/18 08:29 Dose: 100 mls/hr Heparin Sodium/Dextrose (Heparin 25,000 Units/250ml In D5w) 25,000 units in 250 mls @ 19 mls/hr IV .[id number] [facility]; Protocol Last Admin: 12/10/18 12:58 Dose: 19 mls/hr Metoprolol Tartrate (Lopressor) 12.5 mg PO Q12 [facility] Last Admin: 12/10/18 21:43 Dose: 12.5 mg Morphine Sulfate (Morphine) 4 mg IVP Q4 PRN PRN Reason: Agitation Last Admin: 12/10/18 02:10 Dose: 4 mg Nystatin (Nystop Topical Powder) 1 applic TOP TID [facility] Last Admin: 12/10/18 18:35 Dose: 1 applic Pantoprazole Sodium (Protonix Inj) 40 mg IVP Q12 [facility] Last Admin: 12/11/18 08:49 Dose: 40 mg - Labs Labs: 12/11/18 05:20 12/11/18 05:20 PT 12.0 Seconds (9.8-13.1) 12/09/18 10:30 INR 1.1 12/09/18 10:30 APTT 46.0 Seconds (25.6-37.1) H 12/11/18 06:54 Assessment and Plan (1) Respiratory failure with hypoxia and hypercapnia Status: Acute (2) Influenza A Status: Acute (3) Pneumonia and influenza Status: Acute (4) Morbid obesity Status: Chronic (5) COPD (chronic obstructive pulmonary disease) Status: Suspected
--- NOTE | 2018-12-11 11:52 | CP.PCM.PN ---
Subjective - Date & Time of Evaluation Date of Evaluation: 12/11/18 Time of Evaluation: 11:51 - Subjective Subjective: no overnight events Objective - Vital Signs/Intake and Output Vital Signs (last 24 hours): Temp Pulse Resp BP Pulse Ox 99.2 F 91 H 17 91/46 L 97 12/11/18 08:00 12/11/18 10:00 12/11/18 10:00 12/11/18 10:00 12/11/18 10:00 Intake and Output: 12/11/18 12/11/18 06:59 18:59 Intake Total 878 500 Output Total 150 Balance 728 500 - Medications Medications: Current Medications Acetaminophen (Tylenol 160mg/5ml Oral Soln) 160 mg PO ONCE PRN PRN Reason: Flu symptoms Acetylcysteine (Acetylcysteine 20%) 2 ml INH DAILY [facility] Last Admin: 12/11/18 07:36 Dose: 2 ml Albuterol/Ipratropium (Duoneb 3 Mg/0.5 Mg (3 Ml) Ud) 3 ml INH RQ6 [facility] Last Admin: 12/11/18 07:37 Dose: 3 ml Dimethicone (Proshield Plus Skin Protectant) 1 applic TOP Q8 [facility] Last Admin: 12/11/18 08:30 Dose: 1 applic Aztreonam 1 gm/ Sodium (Chloride) 100 mls @ 100 mls/hr IVPB Q12 [facility]; Protocol Last Admin: 12/11/18 08:27 Dose: 100 mls/hr Linezolid (Zyvox 600mg/300ml D5w) 600 mg in 300 mls @ 300 mls/hr IVPB Q12 [facility]; Protocol Last Admin: 12/11/18 08:27 Dose: 300 mls/hr Micafungin Sodium 100 mg/ (Sodium Chloride) 100 mls @ 100 mls/hr IVPB DAILY [facility]; Protocol Last Admin: 12/11/18 08:29 Dose: 100 mls/hr Heparin Sodium/Dextrose (Heparin 25,000 Units/250ml In D5w) 25,000 units in 250 mls @ 19 mls/hr IV .[id number] [facility]; Protocol Last Admin: 12/10/18 12:58 Dose: 19 mls/hr Metoprolol Tartrate (Lopressor) 12.5 mg PO Q12 [facility] Last Admin: 12/10/18 21:43 Dose: 12.5 mg Morphine Sulfate (Morphine) 4 mg IVP Q4 PRN PRN Reason: Agitation Last Admin: 12/10/18 02:10 Dose: 4 mg Nystatin (Nystop Topical Powder) 1 applic TOP TID [facility] Last Admin: 12/10/18 18:35 Dose: 1 applic Pantoprazole Sodium (Protonix Inj) 40 mg IVP Q12 [facility] Last Admin: 12/11/18 08:49 Dose: 40 mg - Labs Labs: 12/11/18 05:20 12/11/18 05:20 PT 12.0 Seconds (9.8-13.1) 12/09/18 10:30 INR 1.1 12/09/18 10:30 APTT 46.0 Seconds (25.6-37.1) H 12/11/18 06:54 - Neck Exam Neck Exam: Normal Inspection - Respiratory Exam Respiratory Exam: Rhonchi - Cardiovascular Exam Cardiovascular Exam: REGULAR RHYTHM - GI/Abdominal Exam GI & Abdominal Exam: Soft, Normal Bowel Sounds Assessment and Plan - Assessment and Plan (Free Text) Assessment: 58 yo female with GA and anemia no bleeding hgb stable conservative GI management, for now
--- NOTE | 2018-12-11 12:27 | CP.PCM.PN ---
Subjective - Date & Time of Evaluation Date of Evaluation: 12/11/18 Time of Evaluation: 12:29 - Subjective Subjective: Patient general condition slowly improving, responds to verbal stimuli, H/H sable Cr improving. Will continue present rx Objective - Vital Signs/Intake and Output Vital Signs (last 24 hours): Temp Pulse Resp BP Pulse Ox 98.7 F 92 H 17 101/45 L 100 12/11/18 12:00 12/11/18 12:00 12/11/18 12:00 12/11/18 12:00 12/11/18 12:00 Intake and Output: 12/11/18 12/11/18 11:59 23:59 Intake Total 902 Output Total 150 Balance 752 - Medications Medications: Current Medications Acetaminophen (Tylenol 160mg/5ml Oral Soln) 160 mg PO ONCE PRN PRN Reason: Flu symptoms Acetylcysteine (Acetylcysteine 20%) 2 ml INH DAILY [facility] Last Admin: 12/11/18 07:36 Dose: 2 ml Albuterol/Ipratropium (Duoneb 3 Mg/0.5 Mg (3 Ml) Ud) 3 ml INH RQ6 [facility] Last Admin: 12/11/18 07:37 Dose: 3 ml Dimethicone (Proshield Plus Skin Protectant) 1 applic TOP Q8 [facility] Last Admin: 12/11/18 08:30 Dose: 1 applic Aztreonam 1 gm/ Sodium (Chloride) 100 mls @ 100 mls/hr IVPB Q12 [facility]; Protocol Last Admin: 12/11/18 08:27 Dose: 100 mls/hr Linezolid (Zyvox 600mg/300ml D5w) 600 mg in 300 mls @ 300 mls/hr IVPB Q12 [facility]; Protocol Last Admin: 12/11/18 08:27 Dose: 300 mls/hr Micafungin Sodium 100 mg/ (Sodium Chloride) 100 mls @ 100 mls/hr IVPB DAILY [facility]; Protocol Last Admin: 12/11/18 08:29 Dose: 100 mls/hr Heparin Sodium/Dextrose (Heparin 25,000 Units/250ml In D5w) 25,000 units in 250 mls @ 19 mls/hr IV .[id number] [facility]; Protocol Last Admin: 12/10/18 12:58 Dose: 19 mls/hr Metoprolol Tartrate (Lopressor) 12.5 mg PO Q12 [facility] Last Admin: 12/10/18 21:43 Dose: 12.5 mg Morphine Sulfate (Morphine) 4 mg IVP Q4 PRN PRN Reason: Agitation Last Admin: 12/10/18 02:10 Dose: 4 mg Nystatin (Nystop Topical Powder) 1 applic TOP TID [facility] Last Admin: 12/10/18 18:35 Dose: 1 applic Pantoprazole Sodium (Protonix Inj) 40 mg IVP Q12 [facility] Last Admin: 12/11/18 08:49 Dose: 40 mg - Labs Labs: 12/11/18 05:20 12/11/18 05:20 PT 12.0 Seconds (9.8-13.1) 12/09/18 10:30 INR 1.1 12/09/18 10:30 APTT 46.0 Seconds (25.6-37.1) H 12/11/18 06:54 - Constitutional Appears: Chronically Ill - Head Exam Head Exam: ATRAUMATIC, NORMAL INSPECTION, NORMOCEPHALIC - Eye Exam Eye Exam: Normal appearance - ENT Exam ENT Exam: Mucous Membranes Moist - Respiratory Exam Respiratory Exam: Decreased Breath Sounds - Cardiovascular Exam Cardiovascular Exam: REGULAR RHYTHM, +S1, +S2 - GI/Abdominal Exam GI & Abdominal Exam: Soft - Extremities Exam Extremities Exam: Normal Inspection - Neurological Exam Neurological Exam: Alert, Awake - Psychiatric Exam Psychiatric exam: Flat Affect - Skin Skin Exam: Pallor Assessment and Plan (1) CAP (community acquired pneumonia) Status: Acute (2) CHF exacerbation Status: Acute (3) DVT prophylaxis Status: Acute (4) History of aortic valve replacement Status: Chronic (5) Influenza A Status: Acute (6) NSTEMI (non-ST elevated myocardial infarction) Status: Acute (7) Pneumonia and influenza Status: Acute (8) Respiratory distress Status: Acute (9) Respiratory failure with hypoxia and hypercapnia Status: Acute (10) Morbid obesity Status: Chronic (11) COPD (chronic obstructive pulmonary disease) Status: Suspected (12) Myocardial ischemia Status: Acute (13) Renal failure, acute Status: Acute (14) Hematoma Status: Acute (15) Sepsis Status: Acute
--- NOTE | 2018-12-11 14:05 | CP.PCM.PN ---
Subjective - Date & Time of Evaluation Date of Evaluation: 12/11/18 Time of Evaluation: 09:00 - Subjective Subjective: very weak and bedridden NAD afebrile Objective - Vital Signs/Intake and Output Vital Signs (last 24 hours): Temp Pulse Resp BP Pulse Ox 98.7 F 92 H 17 101/45 L 100 12/11/18 12:00 12/11/18 12:00 12/11/18 12:00 12/11/18 12:00 12/11/18 12:00 Intake and Output: 12/11/18 12/11/18 06:59 18:59 Intake Total 878 500 Output Total 150 Balance 728 500 - Medications Medications: Current Medications Acetaminophen (Tylenol 160mg/5ml Oral Soln) 160 mg PO ONCE PRN PRN Reason: Flu symptoms Acetylcysteine (Acetylcysteine 20%) 2 ml INH DAILY [facility] Last Admin: 12/11/18 07:36 Dose: 2 ml Albuterol/Ipratropium (Duoneb 3 Mg/0.5 Mg (3 Ml) Ud) 3 ml INH RQ6 [facility] Last Admin: 12/11/18 13:56 Dose: 3 ml Dimethicone (Proshield Plus Skin Protectant) 1 applic TOP Q8 [facility] Last Admin: 12/11/18 08:30 Dose: 1 applic Aztreonam 1 gm/ Sodium (Chloride) 100 mls @ 100 mls/hr IVPB Q12 [facility]; Protocol Last Admin: 12/11/18 08:27 Dose: 100 mls/hr Linezolid (Zyvox 600mg/300ml D5w) 600 mg in 300 mls @ 300 mls/hr IVPB Q12 [facility]; Protocol Last Admin: 12/11/18 08:27 Dose: 300 mls/hr Micafungin Sodium 100 mg/ (Sodium Chloride) 100 mls @ 100 mls/hr IVPB DAILY [facility]; Protocol Last Admin: 12/11/18 08:29 Dose: 100 mls/hr Metoprolol Tartrate (Lopressor) 12.5 mg PO Q12 [facility] Last Admin: 12/10/18 21:43 Dose: 12.5 mg Nystatin (Nystop Topical Powder) 1 applic TOP TID [facility] Last Admin: 12/10/18 18:35 Dose: 1 applic Pantoprazole Sodium (Protonix Inj) 40 mg IVP Q12 [facility] Last Admin: 12/11/18 08:49 Dose: 40 mg - Labs Labs: 12/11/18 05:20 12/11/18 05:20 PT 12.0 Seconds (9.8-13.1) 12/09/18 10:30 INR 1.1 12/09/18 10:30 APTT 46.0 Seconds (25.6-37.1) H 12/11/18 06:54 - Constitutional Appears: Non-toxic, Chronically Ill - Head Exam Head Exam: NORMOCEPHALIC - Eye Exam Eye Exam: absent: Scleral icterus Pupil Exam: NORMAL ACCOMODATION - ENT Exam ENT Exam: Mucous Membranes Dry - Neck Exam Neck Exam: absent: Lymphadenopathy - Respiratory Exam Respiratory Exam: Decreased Breath Sounds, Prolonged Expiratory Phase, Rales, Rhonchi - Cardiovascular Exam Cardiovascular Exam: REGULAR RHYTHM, +S1, +S2 - GI/Abdominal Exam GI & Abdominal Exam: Distended - Rectal Exam Rectal Exam: Deferred - Exam Exam: NORMAL INSPECTION - Extremities Exam Extremities Exam: Pedal Edema - Back Exam Back Exam: absent: CVA tenderness (L), CVA tenderness (R) - Neurological Exam Neurological Exam: Alert, Awake, CN II-XII Intact - Skin Skin Exam: Dry Assessment and Plan (1) Acute hypoxemic respiratory failure Status: Acute (2) Anemia Status: Acute (3) CAP (community acquired pneumonia) Status: Acute (4) CHF exacerbation Status: Acute (5) Coagulopathy Status: Acute (6) Hematoma Status: Acute (7) Hypotension Status: Acute (8) Influenza A Status: Acute (9) Leukocytosis Status: Acute (10) NSTEMI (non-ST elevated myocardial infarction) Status: Acute (11) Pneumonia and influenza Status: Acute (12) Renal failure, acute Status: Acute (13) Sepsis Status: Acute (14) History of aortic valve replacement Status: Chronic (15) COPD (chronic obstructive pulmonary disease) Status: Suspected (16) Myocardial ischemia Status: Acute - Assessment and Plan (Free Text) Assessment: no new positive cultures cont iv antibiotics poor prognosis
[2018-12-11] MEDS ORDERED: Chlorhexidine Gluconate 1 APPL/PKT TP ONE (16:40)
--- NOTE | 2018-12-11 22:32 | CP.PCM.PN ---
Subjective - Date & Time of Evaluation Date of Evaluation: 12/11/18 Time of Evaluation: 12:30 - Subjective Subjective: Patient alert; now on 3L O2 via NC; UO noted to have decreased; Objective - Vital Signs/Intake and Output Vital Signs (last 24 hours): Temp Pulse Resp BP Pulse Ox 98.9 F 96 H 20 111/47 L 99 12/11/18 16:00 12/11/18 21:32 12/11/18 19:11 12/11/18 21:32 12/11/18 18:00 Intake and Output: 12/11/18 12/12/18 18:59 06:59 Intake Total 500 Output Total 800 Balance -300 - Medications Medications: Current Medications Acetaminophen (Tylenol 160mg/5ml Oral Soln) 160 mg PO ONCE PRN PRN Reason: Flu symptoms Acetylcysteine (Acetylcysteine 20%) 2 ml INH DAILY [facility] Last Admin: 12/11/18 07:36 Dose: 2 ml Albuterol/Ipratropium (Duoneb 3 Mg/0.5 Mg (3 Ml) Ud) 3 ml INH RQ6 [facility] Last Admin: 12/11/18 19:11 Dose: 3 ml Aztreonam 1 gm/ Sodium (Chloride) 100 mls @ 100 mls/hr IVPB Q12 [facility]; Protocol Last Admin: 12/11/18 21:30 Dose: 100 mls/hr Linezolid (Zyvox 600mg/300ml D5w) 600 mg in 300 mls @ 300 mls/hr IVPB Q12 [facility]; Protocol Last Admin: 12/11/18 21:33 Dose: 300 mls/hr Micafungin Sodium 100 mg/ (Sodium Chloride) 100 mls @ 100 mls/hr IVPB DAILY [facility]; Protocol Last Admin: 12/11/18 08:29 Dose: 100 mls/hr Heparin Sodium/Dextrose (Heparin 25,000 Units/250ml In D5w) 25,000 units in 250 mls @ 19 mls/hr IV .[id number] [facility]; Protocol Last Admin: 12/11/18 17:07 Dose: 19 mls/hr Metoprolol Tartrate (Lopressor) 12.5 mg PO Q12 [facility] Last Admin: 12/11/18 21:32 Dose: 12.5 mg Pantoprazole Sodium (Protonix Inj) 40 mg IVP Q12 [facility] Last Admin: 12/11/18 21:30 Dose: 40 mg - Labs Labs: 12/11/18 05:20 12/11/18 05:20 PT 12.0 Seconds (9.8-13.1) 12/09/18 10:30 INR 1.1 12/09/18 10:30 APTT 46.0 Seconds (25.6-37.1) H 12/11/18 06:54 - Constitutional Appears: Non-toxic, No Acute Distress - Eye Exam Eye Exam: Normal appearance - Respiratory Exam Respiratory Exam: absent: Respiratory Distress Additional comments: some minimal wheezes; - Cardiovascular Exam Cardiovascular Exam: REGULAR RHYTHM, +S1, +S2 - GI/Abdominal Exam GI & Abdominal Exam: Soft. absent: Distended, Tenderness - Extremities Exam Additional comments: some edema of dependent areas; - Neurological Exam Neurological Exam: Alert, Awake Additional comments: follows commands - Psychiatric Exam Psychiatric exam: absent: Agitated - Skin Skin Exam: Warm. absent: Cyanosis Assessment and Plan (1) Renal failure, acute Assessment & Plan: ATN with strong possibility of superimposed AIN; still with marked pyuria despite being on antibiotics and now antifungal agent; discussed with CCM attending, should d/c PPI especially now that patient extubated and stool occult blood now negative; Otherwise, non-oliguric renal failure but UO only ~50 cc/hr; borderline hypotensive at times; improved FIO2 requirement; stable lytes; no definite indication for HD today and need to avoid hypotension; -Next HD likely for tomorrow, will re-assess on daily basis; -d/c PPI, switch to H2 jose roberto; -avoid nephrotoxic agents; -keep MAP > 65; Status: Acute (2) Acute hypoxemic respiratory failure Status: Acute (3) Anemia Assessment & Plan: With appropriate response s/p 2 u prbc yesterday; continue to monitor daily; Status: Acute (4) Hypotension Status: Acute (5) Sepsis Assessment & Plan: No more fever; dose antibiotics for HD; Status: Acute
[2018-12-12] MEDS: Albuterol-Ipratrop 3 mg / 0.5 (3 ml) UD INH SCH ×5 (01:12→19:15)
[2018-12-12] MEDS ORDERED: Heparin 25,000units in D5W 25,000 UNITS/250 ML BAG IV SCH (05:00)
[2018-12-12] MEDS: Heparin 25,000units in D5W 25,000 UNITS/250 ML BAG IV SCH (06:00)
[2018-12-12 06:31] LABS: CALCIUM 8.3 mg/dL (8.4-10.2)
[2018-12-12 06:38] LABS: HEMOGLOBIN 8.9 g/dL (12.0-16.0); MEAN CELL VOLUME 93.6 fl (81.0-99.0); MEAN CORPUSCULAR HEMOGLOBIN 31.5 pg (27.0-31.0); MEAN CORPUSCULAR HGB CONC 33.6 g/dL (33.0-37.0); RBC 2.81 Mil/uL (3.80-5.20); RED CELL DISTRIBUTION WIDTH 15.3 % (11.5-14.5); WHITE BLOOD COUNT 12.9 K/uL (4.8-10.8)
[2018-12-12] MEDS: Acetylcysteine 20% Inhal Soln (4ml) INH SCH (07:47)
[2018-12-12] MEDS: Linezolid 600 mg in D5W 300 ml 600 MG/300 ML BAG IVPB SCH ×2 (08:45→20:03)
[2018-12-12] MEDS: Aztreonam 1 GM in Sodium Chloride 0.9% 100 ML IVPB SCH ×2 (08:45→20:03)
[2018-12-12] MEDS: Micafungin 100 MG in Sodium Chloride 0.9% 100 ML IVPB SCH (08:46)
--- NOTE | 2018-12-12 09:58 | RAD ---
Date of service: 12/12/2018 HISTORY: respiratory failure COMPARISON: Comparison chest 12/10/2018. FINDINGS: In situ PICC line and large-bore right left IJ venous access catheter the tip of which lies in the SVC. LUNGS: Mild central pulmonary venous congestive changes with what appears represent bilateral alveolar-type infiltrates. Questionable small bilateral effusions PLEURA: As above. No pneumothorax apparent. CARDIOVASCULAR: Mild aortic atherosclerotic calcification present. Cardiomegaly. Sternotomy wires again noted OSSEOUS STRUCTURES: No significant abnormalities. VISUALIZED UPPER ABDOMEN: Normal. OTHER FINDINGS: None. IMPRESSION: Mild central pulmonary venous congestive changes with bilateral alveolar-type infiltrates. Questionable small bilateral effusions
--- NOTE | 2018-12-12 11:20 | CP.PCM.PN ---
Subjective - Date & Time of Evaluation Date of Evaluation: 12/12/18 Time of Evaluation: 11:20 - Subjective Subjective: Seen on rounds in the intensive care unit. Awake and cooperative. Responds to questions. Occasionally difficult to understand response. Has remained afebrile for 2 days. Normotensive. Mildly tachycardic. Did not sleep with HFNC last night, but reported SpO2 was > 90%. Remains on nasal canula at 3LPM with current SpO2 93%. EtCO2 25. Congested cough occasionally, non-productive. Ultrafiltration yesterday 1500cc off. Urine output 1650. WBC down to 12.9, Hgb 8.9GM, BUN/Creat 61/3.1, UA many WBC/RBC, nitrate negative. Blood cultures X 2 from 12/10 both negative after 48 hours. Chest x-ray today shows pulmonary vascular congestion and patchy alveolar infiltrates. Chest wall ecchymosis gradually improving. Neck is supple and trachea midline. Breath sounds equally heard bilaterally. Dry to medium rales in lower lobes bilaterally. No wheezes or bronchial breath sounds. Heart sounds are distant, regular, mildly tachycardic. Abdomen is obese and non-tender. Trace dependant edema, no cyanosis. Maintain nasal canula O2 with EtCO2 monitoring. High Flow Nasal O2 on standby. Will change frequency of DuoNeb to QID from Q6H. Albuterol 2.5mg neb Q4H PRN. Follow up PCXR Friday. Physical therapy/mobilization as possible. Objective - Vital Signs/Intake and Output Vital Signs (last 24 hours): Temp Pulse Resp BP Pulse Ox 99.3 F 95 H 20 100/28 L 100 12/12/18 04:00 12/12/18 06:00 12/12/18 06:00 12/12/18 06:00 12/12/18 06:00 Intake and Output: 12/11/18 12/12/18 23:59 11:59 Intake Total 526 252 Output Total 800 600 Balance -274 -348 - Medications Medications: Current Medications Acetaminophen (Tylenol 160mg/5ml Oral Soln) 160 mg PO ONCE PRN PRN Reason: Flu symptoms Acetylcysteine (Acetylcysteine 20%) 2 ml INH DAILY [facility] Last Admin: 12/12/18 07:47 Dose: 2 ml Albuterol/Ipratropium (Duoneb 3 Mg/0.5 Mg (3 Ml) Ud) 3 ml INH RQ6 [facility] Last Admin: 12/12/18 07:48 Dose: 3 ml Aztreonam 1 gm/ Sodium (Chloride) 100 mls @ 100 mls/hr IVPB Q12 [facility]; Protocol Last Admin: 12/12/18 08:45 Dose: 100 mls/hr Linezolid (Zyvox 600mg/300ml D5w) 600 mg in 300 mls @ 300 mls/hr IVPB Q12 [facility]; Protocol Last Admin: 12/12/18 08:45 Dose: 300 mls/hr Micafungin Sodium 100 mg/ (Sodium Chloride) 100 mls @ 100 mls/hr IVPB DAILY [facility]; Protocol Last Admin: 12/12/18 08:46 Dose: 100 mls/hr Heparin Sodium/Dextrose (Heparin 25,000 Units/250ml In D5w) 25,000 units in 250 mls @ 19 mls/hr IV .[id number] [facility]; Protocol Last Titration: 12/12/18 09:28 Dose: 20 mls/hr Heparin Sodium/Dextrose (Heparin 25,000 Units/250ml In D5w) 25,000 units in 250 mls @ 19 mls/hr IV .[id number] [facility]; Protocol Metoprolol Tartrate (Lopressor) 12.5 mg PO Q12 [facility] Last Admin: 12/12/18 09:20 Dose: Not Given Pantoprazole Sodium (Protonix Inj) 40 mg IVP Q12 [facility] Last Admin: 12/12/18 08:54 Dose: 40 mg - Labs Labs: 12/12/18 05:35 12/12/18 05:35 PT 12.0 Seconds (9.8-13.1) 12/09/18 10:30 INR 1.1 12/09/18 10:30 APTT 38.9 Seconds (25.6-37.1) H 12/12/18 08:15 Assessment and Plan (1) Respiratory failure with hypoxia and hypercapnia Status: Acute (2) Influenza A Status: Resolved (3) Pneumonia and influenza Status: Acute (4) Morbid obesity Status: Chronic (5) COPD (chronic obstructive pulmonary disease) Status: Suspected
--- NOTE | 2018-12-12 11:57 | CP.CCUPN ---
CCU Subjective - Physician Review Events Since Last Encounter (Free Text): 12/12/18 11:54 HD could not be done, catheter not working , TPA inserted , will try later Urine output has increased, non-oliguric 800 cc overnight, PPI induced AIN is the possible cause of her SEDA, discontinued, as recommended by Nephrology, started PEPCID. BP has been stable Keep Oxygen Sat > 95 with supplement NC oxygen but drops to < 90 , when she takes off NC CCU Objective - Vital Signs / Intake & Output Intake and Output (Last 8hrs): Intake & Output 12/11/18 12/12/18 12/12/18 22:59 06:59 14:59 Intake Total 526 252 0 Output Total 800 600 Balance -274 -348 0 Weight 276 lb 9.6 oz Intake: IV 76 152 0 Intake, Piggyback 450 Oral 100 Output: Urine 500 600 Urethral (Olivarez) 600 Urine, Voided 500 Stool 300 Other: # Bowel Movements 1 - Physical Exam Narrative Physical Exam (Free Text): 12/12/18 11:57 P/E Neck: No JVD Lungs: decreased breath sounds, bases Abdomen: soft Ext:+1: No gallop edema Heart : no gallop Head: Positive for: Atraumatic, Normocephalic Pupils: Positive for: PERRL Ears: Positive for: Normal Mouth: Positive for: Moist Mucous Membranes Nose (External): Positive for: Atraumatic Nose (Internal): Positive for: Normal Inspection Neck: Positive for: Normal Range of Motion Respiratory/Chest: Positive for: Rhonchi Cardiovascular: Positive for: Regular Rate and Rhythm Abdomen: Positive for: Normal Bowel Sounds, Other (morbid obesity) Neurological: Positive for: Other (on ventilator) - Medications Active Medications: Active Medications Generic Name Dose Route Start Last Admin Trade Name Freq PRN Reason Stop Dose Admin Acetaminophen 160 mg 12/01/18 10:36 Tylenol 160mg/5ml Oral Soln PO ONCE PRN Flu symptoms Acetylcysteine 2 ml 12/10/18 12:45 12/12/18 07:47 Acetylcysteine 20% INH 2 ml DAILY PINKY Administration Albuterol/Ipratropium 3 ml 12/01/18 14:00 12/12/18 07:48 Duoneb 3 Mg/0.5 Mg (3 Ml) Ud INH 3 ml RQ6 PINKY Administration Famotidine 40 mg 12/12/18 12:00 Pepcid IVP DAILY PINK[facility] Furosemide 40 mg 12/12/18 17:00 Lasix IVP BID PINKY Aztreonam 1 gm/ Sodium 100 mls @ 100 mls/hr 12/06/18 21:00 12/12/18 08:45 Chloride IVPB 100 mls/hr Q12 P[facility] Administration Protocol Linezolid 600 mg in 300 mls @ 300 mls/hr 12/06/18 21:00 12/12/18 08:45 Zyvox 600mg/300ml D5w IVPB 300 mls/hr Q12 [facility] Administration Protocol Micafungin Sodium 100 mg/ 100 mls @ 100 mls/hr 12/08/18 12:30 12/12/18 08:46 Sodium Chloride IVPB 100 mls/hr DAILY P[facility] Administration Protocol Heparin Sodium/Dextrose 25,000 units in 250 mls @ 19 mls/hr 12/11/18 15:45 12/12/18 09:28 Heparin 25,000 Units/250ml In D5w IV 20 mls/hr .[id number] [facility] Titration Protocol Heparin Sodium/Dextrose 25,000 units in 250 mls @ 19 mls/hr 12/12/18 05:00 Heparin 25,000 Units/250ml In D5w IV .[id number] [facility] Protocol Metoprolol Tartrate 12.5 mg 12/01/18 21:00 12/12/18 09:20 Lopressor PO Not Given Q12 PINKY - Patient Studies Lab Studies: Microbiology Studies 12/10/18 11:30 Blood Culture - Preliminary Blood-Venous NO GROWTH AFTER 48 HOURS 12/10/18 11:30 Blood Culture - Preliminary Blood-Venous NO GROWTH AFTER 48 HOURS Lab Studies 12/12/18 12/12/18 12/12/18 Range/Units 08:15 05:35 05:35 WBC (4.8-10.8) K/uL RBC (3.80-5.20) Mil/uL Hgb (12.0-16.0) g/dL Hct (34.0-47.0) % MCV (81.0-99.0) fl MCH (27.0-31.0) pg MCHC (33.0-37.0) g/dL RDW (11.5-14.5) % Plt Count (130-400) K/uL APTT 38.9 H 143.1 H (25.6-37.1) Seconds Sodium 137 (132-148) mmol/l Potassium 4.1 (3.6-5.0) MMOL/L Chloride 105 (98-107) mmol/L Carbon Dioxide 21 L (22-30) mmol/L Anion Gap 15 (10-20) BUN 61 H (7-17) mg/dl Creatinine 3.1 H (0.7-1.2) mg/dl Est GFR ( Amer) Est GFR (Non-Af Amer) 15 Random Glucose 143 H (65-105) mg/dL Calcium 8.3 L (8.4-10.2) mg/dL 12/12/18 Range/Units 05:35 WBC 12.9 H (4.8-10.8) K/uL RBC 2.81 L (3.80-5.20) Mil/uL Hgb 8.9 L (12.0-16.0) g/dL Hct 26.3 L (34.0-47.0) % MCV 93.6 (81.0-99.0) fl MCH 31.5 H (27.0-31.0) pg MCHC 33.6 (33.0-37.0) g/dL RDW 15.3 H (11.5-14.5) % Plt Count 360 (130-400) K/uL APTT (25.6-37.1) Seconds Sodium (132-148) mmol/l Potassium (3.6-5.0) MMOL/L Chloride (98-107) mmol/L Carbon Dioxide (22-30) mmol/L Anion Gap (10-20) BUN (7-17) mg/dl Creatinine (0.7-1.2) mg/dl Est GFR ( Amer) Est GFR (Non-Af Amer) Random Glucose (65-105) mg/dL Calcium (8.4-10.2) mg/dL Laboratory Results - last 24 hr 12/12/18 12/12/18 12/12/18 05:35 05:35 05:35 WBC 12.9 H RBC 2.81 L Hgb 8.9 L Hct 26.3 L MCV 93.6 MCH 31.5 H MCHC 33.6 RDW 15.3 H Plt Count 360 APTT 143.1 H Sodium 137 Potassium 4.1 Chloride 105 Carbon Dioxide 21 L Anion Gap 15 BUN 61 H Creatinine 3.1 H Est GFR ( Amer) 19 Est GFR (Non-Af Amer) 15 Random Glucose 143 H Calcium 8.3 L 12/12/18 08:15 WBC RBC Hgb Hct MCV MCH MCHC RDW Plt Count APTT 38.9 H Sodium Potassium Chloride Carbon Dioxide Anion Gap BUN Creatinine Est GFR ( Amer) Est GFR (Non-Af Amer) Random Glucose Calcium Radiology Impressions: Radiology Impressions Chest X-Ray 12/12/18 05:00 IMPRESSION: Mild central pulmonary venous congestive changes with bilateral alveolar-type infiltrates. Questionable small bilateral effusions Critical Care Progress Note - Nutrition Nutrition: Nutrition Category Date Time Status Dysphagia/Modified Consistency Diet [DIET] Diets 12/09/18 Dinner Active Assessment/Plan - Assessment and Plan (Free Text) Assessment: IMPRESSION / MAJOR PROBLEMS NOW: 1. Acute hypercarbic resp failure 2 COPD Exacerbation /Bilat pneumonia, NSTEMI with Acute Pulm Edema, extubated 2. Influenza Viral resp infection, r/o superimposed bilateral bacterial PNA 3. GI bleed (r/o stress gastritis versus other colitis disorder) and diffuse upper chest and neck ecchymoses (from previous R subclavian and R IJ vein venipuncture attempts during TLC placement) from warfarin coagulopathy. 4. SEDA, r/o ATN, AIN : probably frpm PPI 5. s /p AVR, on AC with heparin drip 6. Morbid obesity PLAN: 1. NC oxygen for now as tolerated. 2. Heparin drip. Check a BNP level. 3. Further HD as per Nephro. : non-funtionin catheter, TPA inserted, will try later, Lasix 40 mg IV BID started 4- PPI, DCed, started pepcid 5- heparin dose adjusted, to peep PTT in therapeutic range .
[2018-12-12] MEDS ORDERED: Albuterol 0.083% Inhal Sol (2.5 mg/3 mL) UD INH PRN (13:42)
--- NOTE | 2018-12-12 13:44 | CP.PCM.PN ---
Subjective - Date & Time of Evaluation Date of Evaluation: 12/12/18 Time of Evaluation: 13:44 - Subjective Subjective: Patient general condition improving Objective - Vital Signs/Intake and Output Vital Signs (last 24 hours): Temp Pulse Resp BP Pulse Ox 99.0 F 100 H 19 125/58 L 89 L 12/12/18 12:00 12/12/18 12:00 12/12/18 12:00 12/12/18 12:00 12/12/18 12:00 Intake and Output: 12/12/18 12/12/18 11:59 23:59 Intake Total 802 Output Total 1150 50 Balance -348 -50 - Medications Medications: Current Medications Acetaminophen (Tylenol 160mg/5ml Oral Soln) 160 mg PO ONCE PRN PRN Reason: Flu symptoms Acetylcysteine (Acetylcysteine 20%) 2 ml INH DAILY [facility] Last Admin: 12/12/18 07:47 Dose: 2 ml Albuterol/Ipratropium (Duoneb 3 Mg/0.5 Mg (3 Ml) Ud) 3 ml INH RQ6 [facility] Last Admin: 12/12/18 13:14 Dose: 3 ml Famotidine (Pepcid) 20 mg IVP Q12 [facility] Furosemide (Lasix) 40 mg IVP BID [facility] Aztreonam 1 gm/ Sodium (Chloride) 100 mls @ 100 mls/hr IVPB Q12 [facility]; Protocol Last Admin: 12/12/18 08:45 Dose: 100 mls/hr Linezolid (Zyvox 600mg/300ml D5w) 600 mg in 300 mls @ 300 mls/hr IVPB Q12 [facility]; Protocol Last Admin: 12/12/18 08:45 Dose: 300 mls/hr Micafungin Sodium 100 mg/ (Sodium Chloride) 100 mls @ 100 mls/hr IVPB DAILY [facility]; Protocol Last Admin: 12/12/18 08:46 Dose: 100 mls/hr Heparin Sodium/Dextrose (Heparin 25,000 Units/250ml In D5w) 25,000 units in 250 mls @ 19 mls/hr IV .[id number] [facility]; Protocol Last Titration: 12/12/18 09:28 Dose: 20 mls/hr Heparin Sodium/Dextrose (Heparin 25,000 Units/250ml In D5w) 25,000 units in 250 mls @ 19 mls/hr IV .[id number] [facility]; Protocol Metoprolol Tartrate (Lopressor) 12.5 mg PO Q12 [facility] Last Admin: 12/12/18 09:20 Dose: Not Given - Labs Labs: 12/12/18 05:35 12/12/18 05:35 PT 12.0 Seconds (9.8-13.1) 12/09/18 10:30 INR 1.1 12/09/18 10:30 APTT 38.9 Seconds (25.6-37.1) H 12/12/18 08:15 - Constitutional Appears: Chronically Ill - Head Exam Head Exam: ATRAUMATIC, NORMAL INSPECTION, NORMOCEPHALIC - Eye Exam Eye Exam: Normal appearance - Respiratory Exam Respiratory Exam: Decreased Breath Sounds - Cardiovascular Exam Cardiovascular Exam: REGULAR RHYTHM, +S1, +S2 - GI/Abdominal Exam GI & Abdominal Exam: Soft - Extremities Exam Extremities Exam: Normal Inspection - Neurological Exam Neurological Exam: Alert, Awake - Psychiatric Exam Psychiatric exam: Flat Affect - Skin Skin Exam: Normal Color Assessment and Plan (1) CAP (community acquired pneumonia) Status: Acute (2) CHF exacerbation Status: Acute (3) DVT prophylaxis Status: Acute (4) History of aortic valve replacement Status: Chronic (5) Influenza A Status: Acute (6) NSTEMI (non-ST elevated myocardial infarction) Status: Acute (7) Pneumonia and influenza Status: Acute (8) Respiratory distress Status: Acute (9) Respiratory failure with hypoxia and hypercapnia Status: Acute (10) Morbid obesity Status: Chronic (11) COPD (chronic obstructive pulmonary disease) Status: Suspected (12) Myocardial ischemia Status: Acute (13) Renal failure, acute Status: Acute (14) Hematoma Status: Acute (15) Sepsis Status: Acute - Assessment and Plan (Free Text) Plan: Continue present rx.
--- NOTE | 2018-12-13 03:35 | CP.PCM.PN ---
Subjective - Date & Time of Evaluation Date of Evaluation: 12/12/18 Time of Evaluation: 18:00 - Subjective Subjective: Patient tolerating PO diet, consuming about 40% per nursing staff; still on 3L O2 via NC; Objective - Vital Signs/Intake and Output Vital Signs (last 24 hours): Temp Pulse Resp BP Pulse Ox 98.1 F 90 19 99/43 L 93 L 12/13/18 00:00 12/13/18 02:00 12/13/18 02:00 12/13/18 02:00 12/13/18 02:00 Intake and Output: 12/12/18 12/13/18 18:59 06:59 Intake Total 1450 540 Output Total 700 Balance 750 540 - Medications Medications: Current Medications Acetaminophen (Tylenol 160mg/5ml Oral Soln) 160 mg PO ONCE PRN PRN Reason: Flu symptoms Acetylcysteine (Acetylcysteine 20%) 2 ml INH DAILY PINKY Last Admin: 12/12/18 07:47 Dose: 2 ml Albuterol Sulfate (Albuterol 0.083% Inhal Anastacia (2.5 Mg/3 Ml) Ud) 2.5 mg INH RQ4 PRN PRN Reason: Shortness of Breath Last Admin: 12/12/18 23:37 Dose: 2.5 mg Albuterol/Ipratropium (Duoneb 3 Mg/0.5 Mg (3 Ml) Ud) 3 ml INH RQID P[facility] Last Admin: 12/12/18 19:15 Dose: 3 ml Famotidine (Pepcid) 20 mg IVP Q12 [facility] Last Admin: 12/12/18 20:03 Dose: 20 mg Furosemide (Lasix) 40 mg IVP BID P[facility]Y Last Admin: 12/12/18 17:15 Dose: 40 mg Aztreonam 1 gm/ Sodium (Chloride) 100 mls @ 100 mls/hr IVPB Q12 [facility]; Protocol Last Admin: 12/12/18 20:03 Dose: 100 mls/hr Linezolid (Zyvox 600mg/300ml D5w) 600 mg in 300 mls @ 300 mls/hr IVPB Q12 [facility]; Protocol Last Admin: 12/12/18 20:03 Dose: 300 mls/hr Micafungin Sodium 100 mg/ (Sodium Chloride) 100 mls @ 100 mls/hr IVPB DAILY P[facility]; Protocol Last Admin: 12/12/18 08:46 Dose: 100 mls/hr Heparin Sodium/Dextrose (Heparin 25,000 Units/250ml In D5w) 25,000 units in 250 mls @ 19 mls/hr IV .[id number] [facility]; Protocol Metoprolol Tartrate (Lopressor) 12.5 mg PO Q12 [facility] Last Admin: 12/12/18 20:04 Dose: 12.5 mg - Labs Labs: 12/12/18 05:35 12/12/18 05:35 PT 12.0 Seconds (9.8-13.1) 12/09/18 10:30 INR 1.1 12/09/18 10:30 APTT 44.5 Seconds (25.6-37.1) H 12/12/18 21:20 - Constitutional Appears: Non-toxic, No Acute Distress - Eye Exam Eye Exam: Normal appearance - Respiratory Exam Respiratory Exam: absent: Respiratory Distress Additional comments: mild wheezes; - Cardiovascular Exam Cardiovascular Exam: RRR. absent: Gallop, Rubs - GI/Abdominal Exam GI & Abdominal Exam: Soft. absent: Distended, Tenderness - Extremities Exam Additional comments: edema of dependent area; - Neurological Exam Neurological Exam: Alert, Awake - Psychiatric Exam Psychiatric exam: Normal Mood. absent: Agitated - Skin Skin Exam: Warm. absent: Cyanosis Assessment and Plan (1) Renal failure, acute Assessment & Plan: ATN with likely superimposed AIN; non-oliguric renal failure; stable electrolyte status; hemodynamic status improved; CXR reviewed, still with signs of fluid excess but stable FIO2 requirement; plan was for HD today but catheter malfunctioning despite trial of cathflo; no urgent indication for HD; also, rate in rise of serum creatinine has decreased significantly indicating renal recovery may be close; will monitor closely; -agree with lasix 40 mg IV bid; will increase frequency as tolerated; -agree with stopping PPI due to strong possibility of AIN; -avoid nephrotoxic agents; -keep MAP > 65; Status: Acute (2) Acute hypoxemic respiratory failure Status: Acute (3) Anemia Assessment & Plan: Stable s/p prbc transfusion 2 days ago; monitor; Status: Acute (4) Hypotension Status: Acute (5) Sepsis Assessment & Plan: Continue to dose antibiotics for HD; Status: Acute
[2018-12-13 05:20] LABS: HEMOGLOBIN 9.2 g/dL (12.0-16.0); MEAN CELL VOLUME 94.1 fl (81.0-99.0); MEAN CORPUSCULAR HEMOGLOBIN 31.5 pg (27.0-31.0); MEAN CORPUSCULAR HGB CONC 33.5 g/dL (33.0-37.0); RBC 2.9 Mil/uL (3.80-5.20); RED CELL DISTRIBUTION WIDTH 15.5 % (11.5-14.5); WHITE BLOOD COUNT 10.4 K/uL (4.8-10.8)
[2018-12-13] MEDS: Heparin 25,000units in D5W 25,000 UNITS/250 ML BAG IV SCH (05:21)
[2018-12-13 05:27] LABS: CALCIUM 8.5 mg/dL (8.4-10.2)
[2018-12-13] MEDS: Albuterol-Ipratrop 3 mg / 0.5 (3 ml) UD INH SCH ×4 (08:00→19:14)
[2018-12-13] MEDS: Acetylcysteine 20% Inhal Soln (4ml) INH SCH (08:00)
[2018-12-13] MEDS: Aztreonam 1 GM in Sodium Chloride 0.9% 100 ML IVPB SCH ×2 (08:31→20:21)
[2018-12-13] MEDS: Linezolid 600 mg in D5W 300 ml 600 MG/300 ML BAG IVPB SCH ×2 (08:31→20:22)
[2018-12-13] MEDS: Micafungin 100 MG in Sodium Chloride 0.9% 100 ML IVPB SCH (08:43)
--- NOTE | 2018-12-13 10:07 | CP.CCUPN ---
CCU Subjective - Physician Review Events Since Last Encounter (Free Text): 12/13/18 10:05 Alert and oriented, no sob, BP has been stable Increased urine output on lasix and creatinine also slightly better, did not have HD yesterday, suggesting recovering from SEDA. PPI was DCed and started on Pepcid yesterday, Hb stable, no drop, on heparin GGT CCU Objective - Vital Signs / Intake & Output Vital Signs (Last 4 hours): Vital Signs BP 12/13/18 08:44 132/58 L Intake and Output (Last 8hrs): Intake & Output 12/12/18 12/13/18 12/13/18 22:59 06:59 14:59 Intake Total 1060 160 Output Total 450 1350 Balance 610 -1190 Weight 276 lb 1.6 oz Intake: IV 250 Intake, Piggyback 460 160 Oral 350 Output: Urine 450 1350 Urethral (Olivarez) 450 Urine, Voided 1350 Other: # Bowel Movements 1 3 - Physical Exam Narrative Physical Exam (Free Text): 12/13/18 10:06 P/E Neck: No JVD Lungs: decrease breath sounds, bases Abdomen: soft, non-tender Ext: + 1 edema Heart: no gallop Head: Positive for: Atraumatic, Normocephalic Pupils: Positive for: PERRL Ears: Positive for: Normal Mouth: Positive for: Moist Mucous Membranes Nose (External): Positive for: Atraumatic Nose (Internal): Positive for: Normal Inspection Neck: Positive for: Normal Range of Motion Respiratory/Chest: Positive for: Rhonchi Cardiovascular: Positive for: Regular Rate and Rhythm Abdomen: Positive for: Normal Bowel Sounds, Other (morbid obesity) Neurological: Positive for: Other (on ventilator) - Medications Active Medications: Active Medications Generic Name Dose Route Start Last Admin Trade Name Freq PRN Reason Stop Dose Admin Acetaminophen 160 mg 12/01/18 10:36 Tylenol 160mg/5ml Oral Soln PO ONCE PRN Flu symptoms Acetylcysteine 2 ml 12/10/18 12:45 12/12/18 07:47 Acetylcysteine 20% INH 2 ml DAILY PINKY Administration Albuterol Sulfate 2.5 mg 12/12/18 13:42 12/12/18 23:37 Albuterol 0.083% Inhal Anastacia (2.5 Mg/3 Ml) Ud INH 2.5 mg RQ4 PRN Administration Shortness of Breath Albuterol/Ipratropium 3 ml 12/12/18 16:00 12/12/18 19:15 Duoneb 3 Mg/0.5 Mg (3 Ml) Ud INH 3 ml RQID PINKY Administration Famotidine 20 mg 12/12/18 21:00 12/13/18 08:54 Pepcid IVP 20 mg Q12 PINKY Administration Furosemide 40 mg 12/12/18 17:00 12/13/18 08:44 Lasix IVP 40 mg BID PINKY Administration Aztreonam 1 gm/ Sodium 100 mls @ 100 mls/hr 12/06/18 21:00 12/13/18 08:31 Chloride IVPB 100 mls/hr Q12 PINKY Administration Protocol Linezolid 600 mg in 300 mls @ 300 mls/hr 12/06/18 21:00 12/13/18 08:31 Zyvox 600mg/300ml D5w IVPB 300 mls/hr Q12 PINKY Administration Protocol Micafungin Sodium 100 mg/ 100 mls @ 100 mls/hr 12/08/18 12:30 12/13/18 08:43 Sodium Chloride IVPB 100 mls/hr DAILY PINKY Administration Protocol Metoprolol Tartrate 12.5 mg 12/01/18 21:00 12/12/18 20:04 Lopressor PO 12.5 mg Q12 PINKY Administration - Patient Studies Lab Studies: Microbiology Studies 12/10/18 11:30 Blood Culture - Preliminary Blood-Venous NO GROWTH AFTER 48 HOURS 12/10/18 11:30 Blood Culture - Preliminary Blood-Venous NO GROWTH AFTER 48 HOURS Lab Studies 12/13/18 12/13/18 12/13/18 Range/Units 04:41 04:41 04:41 WBC 10.4 (4.8-10.8) K/uL RBC 2.90 L (3.80-5.20) Mil/uL Hgb 9.2 L (12.0-16.0) g/dL Hct 27.3 L (34.0-47.0) % MCV 94.1 (81.0-99.0) fl MCH 31.5 H (27.0-31.0) pg MCHC 33.5 (33.0-37.0) g/dL RDW 15.5 H (11.5-14.5) % Plt Count 352 (130-400) K/uL APTT 48.9 H (25.6-37.1) Seconds Sodium 136 (132-148) mmol/l Potassium 3.8 (3.6-5.0) MMOL/L Chloride 109 H (98-107) mmol/L Carbon Dioxide 21 L (22-30) mmol/L Anion Gap 10 (10-20) BUN 66 H (7-17) mg/dl Creatinine 2.9 H (0.7-1.2) mg/dl Est GFR ( Amer) 20 Est GFR (Non-Af Amer) 17 Random Glucose 107 H (65-105) mg/dL Calcium 8.5 (8.4-10.2) mg/dL 12/12/18 12/12/18 Range/Units 21:20 17:37 WBC (4.8-10.8) K/uL RBC (3.80-5.20) Mil/uL Hgb (12.0-16.0) g/dL Hct (34.0-47.0) % MCV (81.0-99.0) fl MCH (27.0-31.0) pg MCHC (33.0-37.0) g/dL RDW (11.5-14.5) % Plt Count (130-400) K/uL APTT 44.5 H 48.3 H (25.6-37.1) Seconds Sodium (132-148) mmol/l Potassium (3.6-5.0) MMOL/L Chloride (98-107) mmol/L Carbon Dioxide (22-30) mmol/L Anion Gap (10-20) BUN (7-17) mg/dl Creatinine (0.7-1.2) mg/dl Est GFR ( Amer) Est GFR (Non-Af Amer) Random Glucose (65-105) mg/dL Calcium (8.4-10.2) mg/dL Laboratory Results - last 24 hr 12/12/18 12/12/18 12/13/18 17:37 21:20 04:41 WBC 10.4 RBC 2.90 L Hgb 9.2 L Hct 27.3 L MCV 94.1 MCH 31.5 H MCHC 33.5 RDW 15.5 H Plt Count 352 APTT 48.3 H 44.5 H Sodium Potassium Chloride Carbon Dioxide Anion Gap BUN Creatinine Est GFR ( Amer) Est GFR (Non-Af Amer) Random Glucose Calcium 12/13/18 12/13/18 04:41 04:41 WBC RBC Hgb Hct MCV MCH MCHC RDW Plt Count APTT 48.9 H Sodium 136 Potassium 3.8 Chloride 109 H Carbon Dioxide 21 L Anion Gap 10 BUN 66 H Creatinine 2.9 H Est GFR ( Amer) 20 Est GFR (Non-Af Amer) 17 Random Glucose 107 H Calcium 8.5 Critical Care Progress Note - Nutrition Nutrition: Nutrition Category Date Time Status Dysphagia/Modified Consistency Diet [DIET] Diets 12/09/18 Dinner Active Assessment/Plan - Assessment and Plan (Free Text) Assessment: IMPRESSION / MAJOR PROBLEMS NOW: 1. Acute hypercarbic resp failure 2 COPD Exacerbation /Bilat pneumonia, NSTEMI with Acute Pulm Edema, extubated, resp status Improving 2. Influenza Viral resp infection, r/o superimposed bilateral bacterial PNA : improving 3 SEDA : ATN/ AIN : probably frpm PPI: showing signs of recovery, 4. GI bleed (r/o stress gastritis versus other colitis disorder) and diffuse upper chest and neck ecchymoses (from previous R subclavian and R IJ vein venipuncture attempts during TLC placement) : Hb stable, no signs of active bleeding, 5. s /p AVR, on AC with heparin drip 6. Morbid obesity PLAN: 1. NC oxygen for now as tolerated. 2. Heparin drip. Check a BNP level. 3. HD as per Nephro. : might not need HD anylonger or less frequently, monitoring UO and renal function closely. On lasix 40 mg IV BID . 4- PPI, DCed, started pepcid 5- heparin dose adjusted, to peep PTT in therapeutic range .
[2018-12-13] MEDS ORDERED: Heparin25000 units/250ml 1/2NS 25,000 UNITS/250 ML BAG IV SCH (11:00)
--- NOTE | 2018-12-13 12:49 | CP.PCM.PN ---
Subjective - Date & Time of Evaluation Date of Evaluation: 12/13/18 Time of Evaluation: 12:49 - Subjective Subjective: Patient general condition improving. H/H stable, on iv furosemide and antbx rx. Severe debility. Objective - Vital Signs/Intake and Output Vital Signs (last 24 hours): Temp Pulse Resp BP Pulse Ox 98.7 F 92 H 21 130/64 94 L 12/13/18 08:00 12/13/18 10:00 12/13/18 10:00 12/13/18 10:00 12/13/18 10:00 Intake and Output: 12/13/18 12/13/18 11:59 23:59 Intake Total 160 Output Total 1350 Balance -1190 - Medications Medications: Current Medications Acetaminophen (Tylenol 160mg/5ml Oral Soln) 160 mg PO ONCE PRN PRN Reason: Flu symptoms Acetylcysteine (Acetylcysteine 20%) 2 ml INH DAILY [facility] Last Admin: 12/13/18 08:00 Dose: Not Given Albuterol Sulfate (Albuterol 0.083% Inhal Anastacia (2.5 Mg/3 Ml) Ud) 2.5 mg INH RQ4 PRN PRN Reason: Shortness of Breath Last Admin: 12/12/18 23:37 Dose: 2.5 mg Albuterol/Ipratropium (Duoneb 3 Mg/0.5 Mg (3 Ml) Ud) 3 ml INH RQID [facility] Last Admin: 12/13/18 11:29 Dose: 3 ml Famotidine (Pepcid) 20 mg IVP Q12 [facility] Last Admin: 12/13/18 08:54 Dose: 20 mg Furosemide (Lasix) 40 mg IVP BID [facility] Last Admin: 12/13/18 08:44 Dose: 40 mg Aztreonam 1 gm/ Sodium (Chloride) 100 mls @ 100 mls/hr IVPB Q12 [facility]; Protocol Last Admin: 12/13/18 08:31 Dose: 100 mls/hr Linezolid (Zyvox 600mg/300ml D5w) 600 mg in 300 mls @ 300 mls/hr IVPB Q12 [facility]; Protocol Last Admin: 12/13/18 08:31 Dose: 300 mls/hr Micafungin Sodium 100 mg/ (Sodium Chloride) 100 mls @ 100 mls/hr IVPB DAILY [facility]; Protocol Last Admin: 12/13/18 08:43 Dose: 100 mls/hr Heparin Sodium/Sodium Chloride (Heparin 02305 Units/250ml 1/2 Normal Saline) 25,000 units in 250 mls @ 20 mls/hr IV .[id number] [facility]; Protocol Stop: 12/14/18 11:01 Last Admin: 12/13/18 12:08 Dose: 20 mls/hr Metoprolol Tartrate (Lopressor) 12.5 mg PO Q12 [facility] Last Admin: 12/12/18 20:04 Dose: 12.5 mg - Labs Labs: 12/13/18 04:41 12/13/18 04:41 PT 12.0 Seconds (9.8-13.1) 12/09/18 10:30 INR 1.1 12/09/18 10:30 APTT 48.9 Seconds (25.6-37.1) H 12/13/18 04:41 - Constitutional Appears: Chronically Ill - Head Exam Head Exam: ATRAUMATIC, NORMAL INSPECTION, NORMOCEPHALIC - Eye Exam Eye Exam: Normal appearance - ENT Exam ENT Exam: Mucous Membranes Moist - Neck Exam Neck Exam: Full ROM - Respiratory Exam Respiratory Exam: Decreased Breath Sounds - Cardiovascular Exam Cardiovascular Exam: REGULAR RHYTHM, +S1, +S2 - GI/Abdominal Exam GI & Abdominal Exam: Soft - Extremities Exam Extremities Exam: Normal Inspection - Neurological Exam Neurological Exam: Alert, Awake, Oriented x3 - Psychiatric Exam Psychiatric exam: Flat Affect - Skin Skin Exam: Normal Color Assessment and Plan (1) CAP (community acquired pneumonia) Status: Acute (2) CHF exacerbation Status: Acute (3) DVT prophylaxis Status: Acute (4) History of aortic valve replacement Status: Chronic (5) Influenza A Status: Resolved (6) NSTEMI (non-ST elevated myocardial infarction) Status: Acute (7) Pneumonia and influenza Status: Acute (8) Respiratory distress Status: Acute (9) Respiratory failure with hypoxia and hypercapnia Status: Acute (10) Morbid obesity Status: Chronic (11) COPD (chronic obstructive pulmonary disease) Status: Suspected (12) Myocardial ischemia Status: Acute (13) Renal failure, acute Status: Acute (14) Hematoma Status: Acute (15) Sepsis Status: Acute - Assessment and Plan (Free Text) Plan: Continue present rx
--- NOTE | 2018-12-13 14:30 | CP.PCM.PN ---
Subjective - Date & Time of Evaluation Date of Evaluation: 12/13/18 Time of Evaluation: 08:00 - Subjective Subjective: remains weak and bedridden but afebrile and less SOB AO x 3 family at beside Objective - Vital Signs/Intake and Output Vital Signs (last 24 hours): Temp Pulse Resp BP Pulse Ox 98.4 F 95 H 28 H 141/65 95 12/13/18 12:00 12/13/18 12:00 12/13/18 12:00 12/13/18 12:00 12/13/18 12:00 Intake and Output: 12/13/18 12/13/18 06:59 18:59 Intake Total 870 500 Output Total 1350 Balance -480 500 - Medications Medications: Current Medications Acetaminophen (Tylenol 160mg/5ml Oral Soln) 160 mg PO ONCE PRN PRN Reason: Flu symptoms Acetylcysteine (Acetylcysteine 20%) 2 ml INH DAILY PINKY Last Admin: 12/13/18 08:00 Dose: Not Given Albuterol Sulfate (Albuterol 0.083% Inhal Anastacia (2.5 Mg/3 Ml) Ud) 2.5 mg INH RQ4 PRN PRN Reason: Shortness of Breath Last Admin: 12/12/18 23:37 Dose: 2.5 mg Albuterol/Ipratropium (Duoneb 3 Mg/0.5 Mg (3 Ml) Ud) 3 ml INH RQID [facility] Last Admin: 12/13/18 11:29 Dose: 3 ml Famotidine (Pepcid) 20 mg IVP Q12 [facility] Last Admin: 12/13/18 08:54 Dose: 20 mg Furosemide (Lasix) 40 mg IVP BID [facility] Last Admin: 12/13/18 08:44 Dose: 40 mg Aztreonam 1 gm/ Sodium (Chloride) 100 mls @ 100 mls/hr IVPB Q12 [facility]; Protocol Last Admin: 12/13/18 08:31 Dose: 100 mls/hr Linezolid (Zyvox 600mg/300ml D5w) 600 mg in 300 mls @ 300 mls/hr IVPB Q12 [facility]; Protocol Last Admin: 12/13/18 08:31 Dose: 300 mls/hr Micafungin Sodium 100 mg/ (Sodium Chloride) 100 mls @ 100 mls/hr IVPB DAILY [facility]; Protocol Last Admin: 12/13/18 08:43 Dose: 100 mls/hr Heparin Sodium/Sodium Chloride (Heparin 70735 Units/250ml 1/2 Normal Saline) 25,000 units in 250 mls @ 20 mls/hr IV .[id number] [facility]; Protocol Stop: 12/14/18 11:01 Last Admin: 12/13/18 12:08 Dose: 20 mls/hr Metoprolol Tartrate (Lopressor) 12.5 mg PO Q12 [facility] Last Admin: 12/12/18 20:04 Dose: 12.5 mg - Labs Labs: 12/13/18 04:41 12/13/18 04:41 PT 12.0 Seconds (9.8-13.1) 12/09/18 10:30 INR 1.1 12/09/18 10:30 APTT 48.9 Seconds (25.6-37.1) H 12/13/18 04:41 - Constitutional Appears: Non-toxic, Chronically Ill - Head Exam Head Exam: NORMOCEPHALIC - ENT Exam ENT Exam: Mucous Membranes Dry - Neck Exam Neck Exam: absent: Lymphadenopathy - Respiratory Exam Respiratory Exam: Decreased Breath Sounds, Prolonged Expiratory Phase, Rhonchi - Cardiovascular Exam Cardiovascular Exam: REGULAR RHYTHM, +S1, +S2 - GI/Abdominal Exam GI & Abdominal Exam: Distended, Soft. absent: Tenderness - Rectal Exam Rectal Exam: Deferred - Exam Exam: NORMAL INSPECTION - Back Exam Back Exam: absent: CVA tenderness (R) - Neurological Exam Neurological Exam: Alert, Awake, Oriented x3 - Psychiatric Exam Psychiatric exam: Depressed - Skin Skin Exam: Dry Assessment and Plan (1) Acute hypoxemic respiratory failure Status: Acute (2) Anemia Status: Acute (3) CAP (community acquired pneumonia) Status: Acute (4) CHF exacerbation Status: Acute (5) Coagulopathy Status: Acute (6) Hematoma Status: Acute (7) Hypotension Status: Acute (8) Influenza A Status: Resolved (9) Leukocytosis Status: Acute (10) NSTEMI (non-ST elevated myocardial infarction) Status: Acute (11) Pneumonia and influenza Status: Acute (12) Renal failure, acute Status: Acute (13) Sepsis Status: Acute (14) History of aortic valve replacement Status: Chronic (15) COPD (chronic obstructive pulmonary disease) Status: Suspected (16) Myocardial ischemia Status: Acute - Assessment and Plan (Free Text) Assessment: 58 yo female was admitted to [facility] 10 days ago with acute influnza A and Pneumonia complicated by NSTEMI respiratory failure pneumonia GI bleed and renal failure Slowly improving No New cultures Cont IV antibiotics for 10 days total
[2018-12-13] MEDS ORDERED: Acetaminophen 650mg/20.3ml solution UD PO ONE (18:53)
[2018-12-13] MEDS ORDERED: DiphenhydrAMINE 50 mg/ml Inj IVP ONE (18:54)
[2018-12-14] MEDS ORDERED: Morphine 4 MG/ML VIAL IVP ONE (02:11)
[2018-12-14] MEDS ORDERED: Morphine 4 MG/ML VIAL ONE (02:18)
[2018-12-14 05:42] LABS: CALCIUM 8.7 mg/dL (8.4-10.2)
[2018-12-14 05:44] LABS: HEMOGLOBIN 8.8 g/dL (12.0-16.0); MEAN CELL VOLUME 94.9 fl (81.0-99.0); MEAN CORPUSCULAR HEMOGLOBIN 31.5 pg (27.0-31.0); MEAN CORPUSCULAR HGB CONC 33.2 g/dL (33.0-37.0); RBC 2.8 Mil/uL (3.80-5.20); WHITE BLOOD COUNT 8.3 K/uL (4.8-10.8)
[2018-12-14] MEDS: Acetylcysteine 20% Inhal Soln (4ml) INH SCH (08:21)
[2018-12-14] MEDS: Albuterol-Ipratrop 3 mg / 0.5 (3 ml) UD INH SCH ×4 (08:21→19:11)
[2018-12-14] MEDS: Aztreonam 1 GM in Sodium Chloride 0.9% 100 ML IVPB SCH ×2 (08:42→20:01)
[2018-12-14] MEDS: Micafungin 100 MG in Sodium Chloride 0.9% 100 ML IVPB SCH (10:04)
--- NOTE | 2018-12-14 11:09 | CP.PCM.PN ---
<Hebert Alberto - Last Filed: 12/14/18 11:24> Subjective - Date & Time of Evaluation Date of Evaluation: 12/14/18 Time of Evaluation: 09:00 - Subjective Subjective: Patient seen and examined at bedside this AM. Pt denies acute overnight events. Remains afebrile. Currently, on NC 3L. Objective - Vital Signs/Intake and Output Vital Signs (last 24 hours): Temp Pulse Resp BP Pulse Ox 97.9 F 94 H 20 120/69 100 12/14/18 08:00 12/14/18 10:00 12/14/18 10:00 12/14/18 10:00 12/14/18 10:00 Intake and Output: 12/14/18 12/14/18 06:59 18:59 Intake Total 640 186 Output Total 1300 Balance -660 186 - Medications Medications: Current Medications Acetaminophen (Tylenol 160mg/5ml Oral Soln) 160 mg PO ONCE PRN PRN Reason: Flu symptoms Acetylcysteine (Acetylcysteine 20%) 2 ml INH DAILY PINKY Last Admin: 12/14/18 08:21 Dose: 2 ml Albuterol Sulfate (Albuterol 0.083% Inhal Anastacia (2.5 Mg/3 Ml) Ud) 2.5 mg INH RQ4 PRN PRN Reason: Shortness of Breath Last Admin: 12/12/18 23:37 Dose: 2.5 mg Albuterol/Ipratropium (Duoneb 3 Mg/0.5 Mg (3 Ml) Ud) 3 ml INH RQID [facility]INK[facility] Last Admin: 12/14/18 11:06 Dose: 3 ml Famotidine (Pepcid) 20 mg IVP Q12 [facility] Last Admin: 12/14/18 08:40 Dose: 20 mg Furosemide (Lasix) 40 mg IVP BID PINKY Last Admin: 12/14/18 08:40 Dose: 40 mg Aztreonam 1 gm/ Sodium (Chloride) 100 mls @ 100 mls/hr IVPB Q12 [facility]; Protocol Last Admin: 12/14/18 08:42 Dose: 100 mls/hr Linezolid (Zyvox 600mg/300ml D5w) 600 mg in 300 mls @ 300 mls/hr IVPB Q12 [facility]; Protocol Last Admin: 12/13/18 20:22 Dose: 300 mls/hr Micafungin Sodium 100 mg/ (Sodium Chloride) 100 mls @ 100 mls/hr IVPB DAILY [facility]; Protocol Last Admin: 12/14/18 10:04 Dose: 100 mls/hr Metoprolol Tartrate (Lopressor) 12.5 mg PO Q12 [facility] Last Admin: 12/14/18 08:41 Dose: 12.5 mg - Labs Labs: 12/14/18 04:30 12/14/18 04:30 PT 12.0 Seconds (9.8-13.1) 12/09/18 10:30 INR 1.1 12/09/18 10:30 APTT 50.6 Seconds (25.6-37.1) H 12/14/18 04:30 - Constitutional Appears: No Acute Distress - Eye Exam Eye Exam: EOMI - Respiratory Exam Respiratory Exam: Decreased Breath Sounds. absent: Wheezes, Respiratory Distress Additional comments: On NC 3L - Cardiovascular Exam Cardiovascular Exam: +S1, +S2 - GI/Abdominal Exam GI & Abdominal Exam: Normal Bowel Sounds. absent: Tenderness - Neurological Exam Neurological Exam: Alert, Awake, CN II-XII Intact - Psychiatric Exam Psychiatric exam: Normal Affect, Normal Mood Assessment and Plan (1) Respiratory failure with hypoxia and hypercapnia Status: Acute (2) Influenza A Status: Resolved (3) Pneumonia and influenza Status: Acute (4) Morbid obesity Status: Chronic (5) COPD (chronic obstructive pulmonary disease) Status: Suspected - Assessment and Plan (Free Text) Assessment: 58 yo F with pmhx of HTN, COPD, hx of aortic valve replacement and morbid obesity admitted for respiratory failure with hypoxia and hypercapnia, Influenza A, Pneumonia and NSTEMI Plan: Pt doing well on NC at 3L. Remains afebrile Labs, imaging and team notes reviewed C/w Acetylcysteine, Duoneb RQID, -Albuterol RQ4 PRN Pt on Lasix IVABX: Aztreonam, Micafungin and Linezolid per ID Encourage further PT for improved mobilization Case and plan d/w Dr. Snow Alberto MD PGY-2 <Froylan Adamson - Last Filed: 12/19/18 09:35> Subjective - Subjective Subjective: Seen together with the resident on rounds in the ICU. Patient was examined and all ancillary studies were reviewed. Case was discussed with the resident and the configuration manager. Diagnosis and plan of care were agreed upon. Entry in the EMR by the resident is an accurate reflection of this activity. Objective - Vital Signs/Intake and Output Vital Signs (last 24 hours): Temp Pulse Resp BP Pulse Ox 97.7 F 93 H 18 100/52 L 93 L 12/19/18 08:00 12/19/18 08:39 12/19/18 08:00 12/19/18 08:39 12/19/18 08:00 Intake and Output: 12/18/18 12/19/18 23:59 11:59 Intake Total 400 100 Output Total 1100 0 Balance -700 100 - Medications Medications: Current Medications Albuterol Sulfate (Albuterol 0.083% Inhal Anastacia (2.5 Mg/3 Ml) Ud) 2.5 mg INH RQ4 PRN PRN Reason: Shortness of Breath Last Admin: 12/12/18 23:37 Dose: 2.5 mg Albuterol/Ipratropium (Duoneb 3 Mg/0.5 Mg (3 Ml) Ud) 3 ml INH RQID PINKY Last Admin: 12/19/18 07:34 Dose: 3 ml Famotidine (Pepcid) 20 mg IVP Q12 [facility]INK[facility] Last Admin: 12/18/18 21:02 Dose: 20 mg Furosemide (Lasix) 20 mg IVP DAILY PINKY Last Admin: 12/19/18 08:38 Dose: 20 mg Aztreonam 1 gm/ Sodium (Chloride) 100 mls @ 100 mls/hr IVPB Q12 [facility]; Protocol Last Admin: 12/19/18 08:42 Dose: 100 mls/hr Linezolid (Zyvox 600mg/300ml D5w) 600 mg in 300 mls @ 300 mls/hr IVPB Q12 [facility]; Protocol Last Admin: 12/19/18 08:43 Dose: 300 mls/hr Micafungin Sodium 100 mg/ (Sodium Chloride) 100 mls @ 100 mls/hr IVPB DAILY [facility]; Protocol Last Admin: 12/19/18 08:43 Dose: 100 mls/hr Lisinopril (Zestril) 2.5 mg PO DAILY PINKY Last Admin: 12/19/18 08:39 Dose: 2.5 mg Metoprolol Tartrate (Lopressor) 12.5 mg PO Q12 [facility]INK[facility] Last Admin: 12/19/18 08:38 Dose: 12.5 mg - Labs Labs: 12/18/18 04:30 12/18/18 04:30 PT 23.8 Seconds (9.8-13.1) H D 12/18/18 04:30 INR 2.1 12/18/18 04:30 APTT 184.3 Seconds (25.6-37.1) H 12/18/18 04:30 Assessment and Plan (1) Respiratory failure with hypoxia and hypercapnia Status: Acute (2) Influenza A Status: Resolved (3) Pneumonia and influenza Status: Acute (4) Morbid obesity Status: Chronic (5) COPD (chronic obstructive pulmonary disease) Status: Suspected
[2018-12-14] MEDS: Linezolid 600 mg in D5W 300 ml 600 MG/300 ML BAG IVPB SCH ×2 (11:22→21:11)
--- NOTE | 2018-12-14 11:23 | CP.PCM.PN ---
<Celestine Calhoun - Last Filed: 12/14/18 15:47> Subjective - Date & Time of Evaluation Date of Evaluation: 12/14/18 Time of Evaluation: 11:20 - Subjective Subjective: Celestine Calhoun DO PGY1 - Internal Medicine Line Maintenance Supervisor - Cardiology Note for Dr. Sutton Patient was seen and examined at bedside this morning. no acute events reported overnight. Patient voicing no complaints at bedside this morning. Objective - Vital Signs/Intake and Output Vital Signs (last 24 hours): Temp Pulse Resp BP Pulse Ox 97.9 F 94 H 20 120/69 100 12/14/18 08:00 12/14/18 10:00 12/14/18 10:00 12/14/18 10:00 12/14/18 10:00 Intake and Output: 12/14/18 12/14/18 06:59 18:59 Intake Total 640 186 Output Total 1300 Balance -660 186 - Medications Medications: Current Medications Acetaminophen (Tylenol 160mg/5ml Oral Soln) 160 mg PO ONCE PRN PRN Reason: Flu symptoms Acetylcysteine (Acetylcysteine 20%) 2 ml INH DAILY PINKY Last Admin: 12/14/18 08:21 Dose: 2 ml Albuterol Sulfate (Albuterol 0.083% Inhal Anastacia (2.5 Mg/3 Ml) Ud) 2.5 mg INH RQ4 PRN PRN Reason: Shortness of Breath Last Admin: 12/12/18 23:37 Dose: 2.5 mg Albuterol/Ipratropium (Duoneb 3 Mg/0.5 Mg (3 Ml) Ud) 3 ml INH RQID [facility] Last Admin: 12/14/18 11:06 Dose: 3 ml Famotidine (Pepcid) 20 mg IVP Q12 [facility] Last Admin: 12/14/18 08:40 Dose: 20 mg Furosemide (Lasix) 40 mg IVP BID [facility] Last Admin: 12/14/18 08:40 Dose: 40 mg Aztreonam 1 gm/ Sodium (Chloride) 100 mls @ 100 mls/hr IVPB Q12 [facility]; Protocol Last Admin: 12/14/18 08:42 Dose: 100 mls/hr Linezolid (Zyvox 600mg/300ml D5w) 600 mg in 300 mls @ 300 mls/hr IVPB Q12 [facility]; Protocol Last Admin: 12/13/18 20:22 Dose: 300 mls/hr Micafungin Sodium 100 mg/ (Sodium Chloride) 100 mls @ 100 mls/hr IVPB DAILY [facility]; Protocol Last Admin: 12/14/18 10:04 Dose: 100 mls/hr Metoprolol Tartrate (Lopressor) 12.5 mg PO Q12 [facility] Last Admin: 12/14/18 08:41 Dose: 12.5 mg - Labs Labs: 12/14/18 04:30 12/14/18 04:30 PT 12.0 Seconds (9.8-13.1) 12/09/18 10:30 INR 1.1 12/09/18 10:30 APTT 50.6 Seconds (25.6-37.1) H 12/14/18 04:30 - Constitutional Appears: Non-toxic, No Acute Distress - Head Exam Head Exam: ATRAUMATIC, NORMOCEPHALIC - Eye Exam Eye Exam: EOMI, Normal appearance, PERRL. absent: Scleral icterus - ENT Exam Additional comments: Moist mucous membrane - Respiratory Exam Respiratory Exam: Wheezes significantly improved from prior examination Additional comments: - Cardiovascular Exam Cardiovascular Exam: RRR, +S1, +S2 Additional comments: - GI/Abdominal Exam GI & Abdominal Exam: Soft. absent: Tenderness Additional comments: Obese - Extremities Exam Additional comments: BL LE PT/DP 2+ Assessment and Plan (1) CAP (community acquired pneumonia) Status: Acute (2) CHF exacerbation Status: Acute (3) NSTEMI (non-ST elevated myocardial infarction) Status: Acute (4) Morbid obesity Status: Chronic (5) COPD (chronic obstructive pulmonary disease) Status: Suspected - Assessment and Plan (Free Text) Plan: C/w Toprolol 12.5 Q12 Given Hx of Mechanical valve: C/w Heparin bridge until INR is therapeutic Started Home Warfarin 7.5 - INR pending; Hb stable Monitor for s/s bleeding Further reccs per Dr. Sutton <Isaak Sutton - Last Filed: 12/15/18 23:25> Objective - Vital Signs/Intake and Output Vital Signs (last 24 hours): Temp Pulse Resp BP Pulse Ox 97.8 F 93 H 16 121/63 98 12/15/18 20:00 12/15/18 22:00 12/15/18 22:00 12/15/18 22:00 12/15/18 22:00 Intake and Output: 12/15/18 12/16/18 18:59 06:59 Intake Total 1170 580 Output Total 1200 Balance -30 580 - Medications Medications: Current Medications Acetaminophen (Tylenol 160mg/5ml Oral Soln) 160 mg PO ONCE PRN PRN Reason: Flu symptoms Acetylcysteine (Acetylcysteine 20%) 2 ml INH DAILY PINKY Last Admin: 12/15/18 07:45 Dose: 2 ml Albuterol Sulfate (Albuterol 0.083% Inhal Anastacia (2.5 Mg/3 Ml) Ud) 2.5 mg INH RQ4 PRN PRN Reason: Shortness of Breath Last Admin: 12/12/18 23:37 Dose: 2.5 mg Albuterol/Ipratropium (Duoneb 3 Mg/0.5 Mg (3 Ml) Ud) 3 ml INH RQID [facility]INKY Last Admin: 12/15/18 19:06 Dose: 3 ml Famotidine (Pepcid) 20 mg IVP Q12 [facility] Last Admin: 12/15/18 20:20 Dose: 20 mg Furosemide (Lasix) 20 mg IVP BID [facility] Last Admin: 12/15/18 16:21 Dose: 20 mg Aztreonam 1 gm/ Sodium (Chloride) 100 mls @ 100 mls/hr IVPB Q12 [facility]; Protocol Last Admin: 12/15/18 20:10 Dose: 100 mls/hr Linezolid (Zyvox 600mg/300ml D5w) 600 mg in 300 mls @ 300 mls/hr IVPB Q12 [facility]; Protocol Last Admin: 12/15/18 20:10 Dose: 300 mls/hr Micafungin Sodium 100 mg/ (Sodium Chloride) 100 mls @ 100 mls/hr IVPB DAILY [facility]; Protocol Last Admin: 12/15/18 08:16 Dose: 100 mls/hr Heparin Sodium/Dextrose (Heparin 25,000 Units/250ml In D5w) 25,000 units in 250 mls @ 20 mls/hr IV .[id number] [facility]; Protocol Last Titration: 12/15/18 13:30 Dose: 20 mls/hr Metoprolol Tartrate (Lopressor) 12.5 mg PO Q12 [facility] Last Admin: 12/15/18 20:11 Dose: 12.5 mg - Labs Labs: 12/15/18 04:30 12/15/18 04:30 PT 14.0 Seconds (9.8-13.1) H 12/15/18 20:49 INR 1.2 12/15/18 20:49 APTT 75.1 Seconds (25.6-37.1) H 12/15/18 20:49 Assessment and Plan (1) NSTEMI (non-ST elevated myocardial infarction) Status: Acute (2) CAP (community acquired pneumonia) Status: Acute (3) CHF exacerbation Status: Acute (4) Respiratory distress Status: Acute (5) Respiratory failure with hypoxia and hypercapnia Status: Acute (6) History of aortic valve replacement Status: Chronic (7) Morbid obesity Status: Chronic (8) COPD (chronic obstructive pulmonary disease) Status: Suspected Attending/Attestation - Attestation I have personally seen and examined this patient.: Yes I have fully participated in the care of the patient.: Yes I have reviewed all pertinent clinical information, including history, physical exam and plan: Yes Notes (Text): 12/15/18 23:23 more awake and responsive cont coumadin with IV heparin till INR therapeutic cont bb add low dose arb in am for ascending aortic aneurysm
--- NOTE | 2018-12-14 13:30 | CP.PCM.PN ---
Subjective - Date & Time of Evaluation Date of Evaluation: 12/14/18 Time of Evaluation: 13:30 - Subjective Subjective: Improving H/H stable Cr stable Severe debility Sepsis Continue present rx Objective - Vital Signs/Intake and Output Vital Signs (last 24 hours): Temp Pulse Resp BP Pulse Ox 98.5 F 100 H 18 122/56 L 100 12/14/18 12:00 12/14/18 12:00 12/14/18 12:00 12/14/18 12:00 12/14/18 12:00 Intake and Output: 12/14/18 12/14/18 11:59 23:59 Intake Total 346 Output Total 1300 Balance -954 - Medications Medications: Current Medications Acetaminophen (Tylenol 160mg/5ml Oral Soln) 160 mg PO ONCE PRN PRN Reason: Flu symptoms Acetylcysteine (Acetylcysteine 20%) 2 ml INH DAILY [facility] Last Admin: 12/14/18 08:21 Dose: 2 ml Albuterol Sulfate (Albuterol 0.083% Inhal Anastacia (2.5 Mg/3 Ml) Ud) 2.5 mg INH RQ4 PRN PRN Reason: Shortness of Breath Last Admin: 12/12/18 23:37 Dose: 2.5 mg Albuterol/Ipratropium (Duoneb 3 Mg/0.5 Mg (3 Ml) Ud) 3 ml INH RQID [facility] Last Admin: 12/14/18 11:06 Dose: 3 ml Famotidine (Pepcid) 20 mg IVP Q12 [facility] Last Admin: 12/14/18 08:40 Dose: 20 mg Furosemide (Lasix) 40 mg IVP BID [facility] Last Admin: 12/14/18 08:40 Dose: 40 mg Aztreonam 1 gm/ Sodium (Chloride) 100 mls @ 100 mls/hr IVPB Q12 [facility]; Protocol Last Admin: 12/14/18 08:42 Dose: 100 mls/hr Linezolid (Zyvox 600mg/300ml D5w) 600 mg in 300 mls @ 300 mls/hr IVPB Q12 [facility]; Protocol Last Admin: 12/14/18 11:22 Dose: 300 mls/hr Micafungin Sodium 100 mg/ (Sodium Chloride) 100 mls @ 100 mls/hr IVPB DAILY [facility]; Protocol Last Admin: 12/14/18 10:04 Dose: 100 mls/hr Metoprolol Tartrate (Lopressor) 12.5 mg PO Q12 [facility] Last Admin: 12/14/18 08:41 Dose: 12.5 mg - Labs Labs: 12/14/18 04:30 12/14/18 04:30 PT 12.0 Seconds (9.8-13.1) 12/09/18 10:30 INR 1.1 12/09/18 10:30 APTT 50.6 Seconds (25.6-37.1) H 12/14/18 04:30 - Constitutional Appears: Chronically Ill - Head Exam Head Exam: ATRAUMATIC, NORMAL INSPECTION, NORMOCEPHALIC - Eye Exam Eye Exam: Normal appearance - Neck Exam Neck Exam: Full ROM - Respiratory Exam Respiratory Exam: Decreased Breath Sounds - Cardiovascular Exam Cardiovascular Exam: REGULAR RHYTHM, +S1, +S2 - GI/Abdominal Exam GI & Abdominal Exam: Normal Bowel Sounds - Neurological Exam Neurological Exam: Alert, Awake - Psychiatric Exam Psychiatric exam: Flat Affect - Skin Skin Exam: Pallor Assessment and Plan (1) CAP (community acquired pneumonia) Status: Acute (2) CHF exacerbation Status: Acute (3) DVT prophylaxis Status: Acute (4) History of aortic valve replacement Status: Chronic (5) Influenza A Status: Resolved (6) NSTEMI (non-ST elevated myocardial infarction) Status: Acute (7) Pneumonia and influenza Status: Acute (8) Respiratory distress Status: Acute (9) Respiratory failure with hypoxia and hypercapnia Status: Acute (10) Morbid obesity Status: Chronic (11) COPD (chronic obstructive pulmonary disease) Status: Suspected (12) Myocardial ischemia Status: Acute (13) Renal failure, acute Status: Acute (14) Hematoma Status: Acute (15) Sepsis Status: Acute
--- NOTE | 2018-12-14 14:22 | RAD ---
Date of service: 12/14/2018 HISTORY: Multiple serial examinations preceding the most recent study: 12/12/2018 COMPARISON: No prior. FINDINGS: LUNGS: Stable pulmonary vascular congestion. PLEURA: No significant pleural effusion identified, no pneumothorax apparent. CARDIOVASCULAR: Atherosclerotic calcifications identified primarily aortic arch. Venous access catheter in stable, satisfactory position. PICC line in satisfactory position Stable cardiomegaly OSSEOUS STRUCTURES: No significant abnormalities. VISUALIZED UPPER ABDOMEN: Normal. OTHER FINDINGS: Removal of support apparatus since the prior study: Endotracheal tube IMPRESSION: No significant interval change compared to the prior examination(s).
[2018-12-14 16:35] LABS: INR 1.3; PROTHROMBIN TIME 14.2 Seconds (9.8-13.1)
--- NOTE | 2018-12-14 16:50 | CP.PCM.PN ---
Subjective - Date & Time of Evaluation Date of Evaluation: 12/14/18 Time of Evaluation: 16:48 - Subjective Subjective: no overnight events Objective - Vital Signs/Intake and Output Vital Signs (last 24 hours): Temp Pulse Resp BP Pulse Ox 98.5 F 96 H 19 109/52 L 100 12/14/18 16:00 12/14/18 16:00 12/14/18 16:00 12/14/18 16:00 12/14/18 16:00 Intake and Output: 12/14/18 12/14/18 06:59 18:59 Intake Total 640 668 Output Total 1300 Balance -660 668 - Medications Medications: Current Medications Acetaminophen (Tylenol 160mg/5ml Oral Soln) 160 mg PO ONCE PRN PRN Reason: Flu symptoms Acetylcysteine (Acetylcysteine 20%) 2 ml INH DAILY [facility] Last Admin: 12/14/18 08:21 Dose: 2 ml Albuterol Sulfate (Albuterol 0.083% Inhal Anastacia (2.5 Mg/3 Ml) Ud) 2.5 mg INH RQ4 PRN PRN Reason: Shortness of Breath Last Admin: 12/12/18 23:37 Dose: 2.5 mg Albuterol/Ipratropium (Duoneb 3 Mg/0.5 Mg (3 Ml) Ud) 3 ml INH RQID [facility] Last Admin: 12/14/18 15:16 Dose: 3 ml Famotidine (Pepcid) 20 mg IVP Q12 [facility] Last Admin: 12/14/18 08:40 Dose: 20 mg Furosemide (Lasix) 40 mg IVP BID [facility] Last Admin: 12/14/18 08:40 Dose: 40 mg Aztreonam 1 gm/ Sodium (Chloride) 100 mls @ 100 mls/hr IVPB Q12 [facility]; Protocol Last Admin: 12/14/18 08:42 Dose: 100 mls/hr Linezolid (Zyvox 600mg/300ml D5w) 600 mg in 300 mls @ 300 mls/hr IVPB Q12 [facility]; Protocol Last Admin: 12/14/18 11:22 Dose: 300 mls/hr Micafungin Sodium 100 mg/ (Sodium Chloride) 100 mls @ 100 mls/hr IVPB DAILY [facility]; Protocol Last Admin: 12/14/18 10:04 Dose: 100 mls/hr Metoprolol Tartrate (Lopressor) 12.5 mg PO Q12 [facility] Last Admin: 12/14/18 08:41 Dose: 12.5 mg Warfarin Sodium (Coumadin) 7.5 mg PO QD5 [facility]; Protocol Stop: 12/14/18 17:01 - Labs Labs: 12/14/18 04:30 12/14/18 04:30 PT 14.2 Seconds (9.8-13.1) H 12/14/18 15:48 INR 1.3 12/14/18 15:48 APTT 50.6 Seconds (25.6-37.1) H 12/14/18 04:30 - ENT Exam ENT Exam: Normal Exam - Respiratory Exam Respiratory Exam: Rhonchi, NORMAL BREATHING PATTERN - Cardiovascular Exam Cardiovascular Exam: REGULAR RHYTHM - GI/Abdominal Exam GI & Abdominal Exam: Soft, Normal Bowel Sounds Assessment and Plan - Assessment and Plan (Free Text) Assessment: 58 yo female with anemia doing better continue current plan
[2018-12-14] MEDS: Heparin 25,000units in D5W 25,000 UNITS/250 ML BAG IV SCH (18:06)
--- NOTE | 2018-12-14 18:13 | CP.PCM.PN ---
Subjective - Date & Time of Evaluation Date of Evaluation: 12/14/18 Time of Evaluation: 12:00 - Subjective Subjective: Patient making good urine output; not offering any complaints; remains on nasal cannula O2; Objective - Vital Signs/Intake and Output Vital Signs (last 24 hours): Temp Pulse Resp BP Pulse Ox 98.5 F 96 H 19 109/52 L 100 12/14/18 16:00 12/14/18 16:00 12/14/18 16:00 12/14/18 17:44 12/14/18 16:00 Intake and Output: 12/14/18 12/14/18 06:59 18:59 Intake Total 640 668 Output Total 1300 Balance -660 668 - Medications Medications: Current Medications Acetaminophen (Tylenol 160mg/5ml Oral Soln) 160 mg PO ONCE PRN PRN Reason: Flu symptoms Acetylcysteine (Acetylcysteine 20%) 2 ml INH DAILY [facility] Last Admin: 12/14/18 08:21 Dose: 2 ml Albuterol Sulfate (Albuterol 0.083% Inhal Anastacia (2.5 Mg/3 Ml) Ud) 2.5 mg INH RQ4 PRN PRN Reason: Shortness of Breath Last Admin: 12/12/18 23:37 Dose: 2.5 mg Albuterol/Ipratropium (Duoneb 3 Mg/0.5 Mg (3 Ml) Ud) 3 ml INH RQID [facility] Last Admin: 12/14/18 15:16 Dose: 3 ml Famotidine (Pepcid) 20 mg IVP Q12 [facility] Last Admin: 12/14/18 08:40 Dose: 20 mg Furosemide (Lasix) 20 mg IVP BID [facility] Last Admin: 12/14/18 17:44 Dose: 20 mg Aztreonam 1 gm/ Sodium (Chloride) 100 mls @ 100 mls/hr IVPB Q12 [facility]; Protocol Last Admin: 12/14/18 08:42 Dose: 100 mls/hr Linezolid (Zyvox 600mg/300ml D5w) 600 mg in 300 mls @ 300 mls/hr IVPB Q12 [facility]; Protocol Last Admin: 12/14/18 11:22 Dose: 300 mls/hr Micafungin Sodium 100 mg/ (Sodium Chloride) 100 mls @ 100 mls/hr IVPB DAILY [facility]; Protocol Last Admin: 12/14/18 10:04 Dose: 100 mls/hr Heparin Sodium/Dextrose (Heparin 25,000 Units/250ml In D5w) 25,000 units in 250 mls @ 20 mls/hr IV .[id number] [facility]; Protocol Last Admin: 12/14/18 18:06 Dose: 20 mls/hr Metoprolol Tartrate (Lopressor) 12.5 mg PO Q12 [facility] Last Admin: 12/14/18 08:41 Dose: 12.5 mg - Labs Labs: 12/14/18 04:30 12/14/18 04:30 PT 14.2 Seconds (9.8-13.1) H 12/14/18 15:48 INR 1.3 12/14/18 15:48 APTT 50.6 Seconds (25.6-37.1) H 12/14/18 04:30 - Constitutional Appears: Non-toxic, No Acute Distress - Eye Exam Eye Exam: Normal appearance - Respiratory Exam Respiratory Exam: Wheezes. absent: Respiratory Distress - Cardiovascular Exam Cardiovascular Exam: RRR. absent: Gallop, Rubs - GI/Abdominal Exam GI & Abdominal Exam: Soft. absent: Distended - Extremities Exam Additional comments: edema of dependent area; - Neurological Exam Neurological Exam: Alert, Awake - Psychiatric Exam Psychiatric exam: absent: Agitated - Skin Skin Exam: Warm. absent: Cyanosis Assessment and Plan (1) Renal failure, acute Assessment & Plan: ATN with likely superimposed AIN; now showing improvement; PPI switched to H2 blockder due to concern for AIN; now polyuric on IV lasix 40 mg q12h; stable electrolyte status and FIO2 requirement; no more indication for HD (last treatment 3 days ago); -decreasing IV lasix to 20 mg q12h; -monitor UO; goal is to keep slightly negative fluid balance given hypoxia (though much improved); -can d/c HD catheter (will need to hold heparin drip 4 hrs prior to removal); -avoid nephrotoxic agents; -no need for steroids for possible AIN at this time as renal function is already improving; -keep MAP > 65; Status: Acute (2) Acute hypoxemic respiratory failure Status: Acute (3) Anemia Status: Acute (4) Hypotension Status: Acute (5) Sepsis Assessment & Plan: Should continue to dose antibiotics for CrCl < 20 ml/min; Status: Acute
--- NOTE | 2018-12-14 22:37 | PN ---
DATE: 12/14/2018 CRITICAL CARE PROGRESS NOTE LOCATION: The patient is in ICU, bed 430. TIME SPENT: 35 minutes. SUBJECTIVE: The patient is seen, evaluated at the bedside. Past medical, surgical, family and social history reviewed. Case discussed in multidisciplinary ICU rounds this morning. A 58-year-old morbidly obese female with chronic obstructive pulmonary disease, valvular heart disease, status post aortic valve replacement, on Coumadin, status post PCI, hypertension, hypertensive cardiovascular disease, hyperlipidemia, previous pneumonia, non-ST CT, extubated, currently on oxygen supplement 2 liters nasal cannula. Alert and awake, follows commands appropriate, hemodialysis on hold. PHYSICAL EXAMINATION: VITAL SIGNS: Temperature 97.9, heart rate 94, respiratory rate 20, blood pressure 120/69, mean arterial pressure 86. Intake 1140, output 3200, negative balance 2060. Weight 272 pounds, 12.8 ounces. HEAD, EYES, EARS, NOSE AND THROAT: Pupils reactive. Conjunctivae pale. Sclerae white. NECK: Supple. Trachea central. Reduced oropharyngeal airspace. CHEST: Bilateral breath sounds, diminished in intensity. Prolonged expiration. HEART: Rhythm regular. S1, S2 normal. No audible murmur. ABDOMEN: Bowel sounds present. Soft. Liver and spleen not palpable. Bladder not distended. EXTREMITIES: No palpable cord. Capillary refill less than 2 seconds. SKIN: Ecchymosis right side of the neck, right upper chest, left upper chest and left flank. NEUROLOGIC: Alert, awake, follows commands appropriate. Moves all four extremities. No cranial nerve deficit. CURRENT MEDICATIONS: Include Tylenol 650 mg every 6 hours p.r.n., acetylcysteine 20% 2 mL daily, DuoNeb 3 mL, albuterol solution 2.5 mg every 4 hours, albuterol/Atrovent inhalation 3 mL q.i.d., aztreonam 1 g IV every 12 hours, Pepcid 20 mg IV every 12 hours, Lasix 40 mg IV twice daily, Zyvox 600 mg IV every 12 hours, Lopressor 12.5 mg every 12 hours, and micafungin 100 mg p.o. daily. LABORATORY DATA: WBC 8.3, hemoglobin 8.8, hematocrit 26.6, platelet count of 318, PTT 50.6. SMA-7: Sodium 138, potassium 3.8, chloride 103, CO2 of 24, blood urea nitrogen 64, creatinine 2.7, estimated GFR 22, calcium 8.7. Urinalysis, rbc 112, wbc many, microscopic wbc 621. Stool occult blood positive. Vancomycin trough level 16.5. Complement C3 of 130, C4 of 46.8. Microbiology: Urine culture positive for yeast. Sputum culture positive for yeast. Blood culture, coagulase-negative staph. Sputum culture, yeast species on 12/02/2018. Chest x-ray done this morning, official report pending. Trachea is central. CT chest represent mild pulmonary vascular congestion. IMPRESSION: 1. Neurologic: Resolving septic metabolic encephalopathy. Currently is oriented to name, place and time. 2. Pulmonary: Status post hypercapnic hypoxic respiratory failure, on nasal cannula at 2 liters. Continue DuoNeb 3 mL via nebulizer every 6 hours. 3. Infectious Disease: Stable. Continue current antibiotic. 4. Hematology: No leukocytosis. Hemoglobin/hematocrit stable, normal platelet count. 5. Renal: Status post acute [id number] renal failure, hemodialysis on hold, blood urea nitrogen and creatinine stable. No electrolyte abnormalities. Keep head of bed 30 degrees up. 6. Cardiac: Status post non-ST myocardial infarction status post aortic valve replacement, on intravenous heparin. Maintain therapeutic partial thromboplastin time. She will also benefit from deep venous thrombosis prophylaxis. Continue feeding as tolerated. Jered Black MD
[2018-12-15 05:36] LABS: INR 1.2; PROTHROMBIN TIME 13.8 Seconds (9.8-13.1)
[2018-12-15 05:37] LABS: BASO # 0.1 K/uL (0.0-0.2); BASO % 0.7 % (0.0-2.0); EOS # 0.5 K/uL (0.0-0.7); EOS % 5.7 % (0.0-4.0); HEMOGLOBIN 9.9 g/dL (12.0-16.0); LYMPH # 1.4 K/uL (1.0-4.3); LYMPH % 17.9 % (20.0-40.0); MEAN CELL VOLUME 94.9 fl (81.0-99.0); MEAN CORPUSCULAR HEMOGLOBIN 31.9 pg (27.0-31.0); MEAN CORPUSCULAR HGB CONC 33.6 g/dL (33.0-37.0); MEAN PLATELET VOLUME 7.5 fl (7.2-11.7); MONO # 0.6 K/uL (0.0-0.8); MONO % 8.2 % (0.0-10.0); NEUT # 5.3 K/uL (1.8-7.0); NEUT % 67.5 % (50.0-75.0); RBC 3.1 Mil/uL (3.80-5.20); RED CELL DISTRIBUTION WIDTH 16.6 % (11.5-14.5); WHITE BLOOD COUNT 7.9 K/uL (4.8-10.8)
[2018-12-15 05:39] LABS: PARTIAL THROMBOPLASTIN TIME 77.5 Seconds (25.6-37.1)
[2018-12-15 05:52] LABS: ALB/GLOB RATIO 0.7 (1.0-2.1); ALBUMIN 3.2 g/dL (3.5-5.0); CALCIUM 9.1 mg/dL (8.4-10.2)
[2018-12-15] MEDS: Heparin 25,000units in D5W 25,000 UNITS/250 ML BAG IV SCH (06:34)
[2018-12-15] MEDS: Albuterol-Ipratrop 3 mg / 0.5 (3 ml) UD INH SCH ×4 (07:45→19:06)
[2018-12-15] MEDS: Acetylcysteine 20% Inhal Soln (4ml) INH SCH (07:45)
[2018-12-15] MEDS: Aztreonam 1 GM in Sodium Chloride 0.9% 100 ML IVPB SCH ×2 (08:07→20:10)
[2018-12-15] MEDS: Micafungin 100 MG in Sodium Chloride 0.9% 100 ML IVPB SCH (08:16)
[2018-12-15] MEDS: Linezolid 600 mg in D5W 300 ml 600 MG/300 ML BAG IVPB SCH ×2 (08:28→20:10)
--- NOTE | 2018-12-15 11:07 | CP.PCM.PN ---
Subjective - Date & Time of Evaluation Date of Evaluation: 12/15/18 Time of Evaluation: 11:07 - Subjective Subjective: Seen on morning rounds in the ICU. Awake and alert, but at time may be confused. Afebrile, mildly tachycardic, normotensive. Does not appear to be in any acute respiratory distress. Present labs appear to be stable. No cyanosis, no dependant edema. Ecchymosis gradually resolving. No subcutaneous emphysema. Neck is supple, trachea midline. Breath sounds are present bilaterally, diminished. No audible wheezes, few scattered rhonchi and dependant dry rales. Heart sounds are distant, regular rhythm. Abdomen obese and non-tender. Maintain current medical regimen and supplemental oxygenation. Continue current aerosol therapies. Mobilize/PT as tolerated. Objective - Vital Signs/Intake and Output Vital Signs (last 24 hours): Temp Pulse Resp BP Pulse Ox 98.5 F 102 H 19 120/68 97 12/15/18 08:00 12/15/18 10:00 12/15/18 10:00 12/15/18 10:00 12/15/18 10:00 Intake and Output: 12/14/18 12/15/18 23:59 11:59 Intake Total 1426 524 Output Total 1000 1600 Balance 426 -1076 - Medications Medications: Current Medications Acetaminophen (Tylenol 160mg/5ml Oral Soln) 160 mg PO ONCE PRN PRN Reason: Flu symptoms Acetylcysteine (Acetylcysteine 20%) 2 ml INH DAILY [facility] Last Admin: 12/15/18 07:45 Dose: 2 ml Albuterol Sulfate (Albuterol 0.083% Inhal Anastacia (2.5 Mg/3 Ml) Ud) 2.5 mg INH RQ4 PRN PRN Reason: Shortness of Breath Last Admin: 12/12/18 23:37 Dose: 2.5 mg Albuterol/Ipratropium (Duoneb 3 Mg/0.5 Mg (3 Ml) Ud) 3 ml INH RQID [facility] Last Admin: 12/15/18 07:45 Dose: 3 ml Famotidine (Pepcid) 20 mg IVP Q12 [facility] Last Admin: 12/15/18 08:24 Dose: 20 mg Furosemide (Lasix) 20 mg IVP BID [facility] Last Admin: 12/15/18 08:13 Dose: 20 mg Aztreonam 1 gm/ Sodium (Chloride) 100 mls @ 100 mls/hr IVPB Q12 [facility]; Protocol Last Admin: 12/15/18 08:07 Dose: 100 mls/hr Linezolid (Zyvox 600mg/300ml D5w) 600 mg in 300 mls @ 300 mls/hr IVPB Q12 [facility]; Protocol Last Admin: 12/15/18 08:28 Dose: 300 mls/hr Micafungin Sodium 100 mg/ (Sodium Chloride) 100 mls @ 100 mls/hr IVPB DAILY [facility]; Protocol Last Admin: 12/15/18 08:16 Dose: 100 mls/hr Heparin Sodium/Dextrose (Heparin 25,000 Units/250ml In D5w) 25,000 units in 250 mls @ 20 mls/hr IV .[id number] [facility]; Protocol Last Titration: 12/15/18 07:55 Dose: 20 mls/hr Metoprolol Tartrate (Lopressor) 12.5 mg PO Q12 [facility] Last Admin: 12/15/18 08:15 Dose: 12.5 mg - Labs Labs: 12/15/18 04:30 12/15/18 04:30 PT 13.8 Seconds (9.8-13.1) H 12/15/18 04:30 INR 1.2 12/15/18 04:30 APTT 77.5 Seconds (25.6-37.1) H 12/15/18 04:30 Assessment and Plan (1) Respiratory failure with hypoxia and hypercapnia Status: Acute (2) Influenza A Status: Resolved (3) Pneumonia and influenza Status: Acute (4) Morbid obesity Status: Chronic (5) COPD (chronic obstructive pulmonary disease) Status: Suspected
--- NOTE | 2018-12-15 11:17 | CP.CCUPN ---
CCU Subjective - Physician Review Subjective (Free Text): 12/15/18 15:50 The patient was Seen/interviewed and examined by me at the bedside during ICU round, Medical records reviewed and Management issues were discussed and formulated with the house staff. Events reviewed 58 Years old Female with PMHx of Morbid obesity, AVR (on coumadin), CHF, CAD, HTN and possible COPD who presented to the Emergency department with 2 days of fever (measured up to 103 in ER), cough with clear sputum and SOB, symptoms got significantly worse today. Patient has tried OTC medications with minimal relief, Denies chest pain/pressure. As per chart, on admission the Patient not able to provide much other history g iven her current difficulty breathing. Shortly after admission she was intubated by Anesthesiologist for lethargy and hypercarbia in the presence of new NSTEMI. Patient S/P extubation 12/08 Awake, Comfortable, NAD Was OOB to chair today NSR on the monitor No Vasopressors Afebrile, on IV Zyvox, Azactam and Micafungin Positive Blood C/S for coagulase negative Staph and Sputum C/S for Yeast Most recent Blood C/S negative Last HD was several days ago, renal function remains stable, will remove the HD access today Patient on Heparin and Started on coumadin last night Off Lasix drip, now on IV 20 mg BID Last 24H I&O 1876/2200 CCU Objective - Vital Signs / Intake & Output Vital Signs (Last 4 hours): Vital Signs Temp Pulse Resp BP Pulse Ox 12/15/18 10:00 102 H 19 120/68 97 12/15/18 08:15 89 104/44 L 12/15/18 08:13 104/44 L 12/15/18 08:00 98.5 F 89 19 104/44 L 97 Intake and Output (Last 8hrs): Intake & Output 12/14/18 12/15/18 12/15/18 22:59 06:59 14:59 Intake Total 944 264 260 Output Total 1000 1200 400 Balance -56 -936 -140 Weight 274 lb Intake: IV 84 264 60 Intake, Piggyback 400 200 Oral 460 Output: Urine 1000 1200 400 Urethral (Olivarez) 1000 400 Urine, Voided 1200 Other: # Bowel Movements 1 1 1 - Physical Exam Physical Exam Limitations: Positive for: Clinical Condition Head: Positive for: Atraumatic, Normocephalic Pupils: Positive for: PERRL Ears: Positive for: Normal Mouth: Positive for: Moist Mucous Membranes Nose (External): Positive for: Atraumatic Nose (Internal): Positive for: Normal Inspection Neck: Positive for: Normal Range of Motion Respiratory/Chest: Positive for: Rales, Rhonchi. Negative for: Clear to Auscultation, Retracting Cardiovascular: Positive for: Regular Rate and Rhythm, Peripheal Pulses Present. Negative for: Tachycardic, Bradycardic Abdomen: Positive for: Normal Bowel Sounds, Other (morbid obesity). Negative for: Tenderness, Distention Upper Extremity: Positive for: Edema, NORMAL PULSES, Capillary Refill < 2s. Negative for: Cyanosis Lower Extremity: Positive for: NORMAL PULSES, Capillary Refill < 2 s Neurological: Positive for: Other (on ventilator) Psychiatric: Positive for: Alert, Oriented x 3, Normal Insight, Normal Mood. Negative for: Anxious, Agitated - Medications Active Medications: Active Medications Generic Name Dose Route Start Last Admin Trade Name Freq PRN Reason Stop Dose Admin Acetaminophen 160 mg 12/01/18 10:36 Tylenol 160mg/5ml Oral Soln PO ONCE PRN Flu symptoms Acetylcysteine 2 ml 12/10/18 12:45 12/15/18 07:45 Acetylcysteine 20% INH 2 ml DAILY [facility] Administration Albuterol Sulfate 2.5 mg 12/12/18 13:42 12/12/18 23:37 Albuterol 0.083% Inhal Anastacia (2.5 Mg/3 Ml) Ud INH 2.5 mg RQ4 PRN Administration Shortness of Breath Albuterol/Ipratropium 3 ml 12/12/18 16:00 12/15/18 07:45 Duoneb 3 Mg/0.5 Mg (3 Ml) Ud INH 3 ml RQID [facility] Administration Famotidine 20 mg 12/12/18 21:00 12/15/18 08:24 Pepcid IVP 20 mg Q12 [facility] Administration Furosemide 20 mg 12/15/18 09:00 12/15/18 08:13 Lasix IVP 20 mg BID [facility] Administration Aztreonam 1 gm/ Sodium 100 mls @ 100 mls/hr 12/06/18 21:00 12/15/18 08:07 Chloride IVPB 100 mls/hr Q12 [facility] Administration Protocol Linezolid 600 mg in 300 mls @ 300 mls/hr 12/06/18 21:00 12/15/18 08:28 Zyvox 600mg/300ml D5w IVPB 300 mls/hr Q12 [facility] Administration Protocol Micafungin Sodium 100 mg/ 100 mls @ 100 mls/hr 12/08/18 12:30 12/15/18 08:16 Sodium Chloride IVPB 100 mls/hr DAILY [facility] Administration Protocol Heparin Sodium/Dextrose 25,000 units in 250 mls @ 20 mls/hr 12/14/18 17:30 12/15/18 07:55 Heparin 25,000 Units/250ml In D5w IV 20 mls/hr .[id number] [facility] Titration Protocol Metoprolol Tartrate 12.5 mg 12/01/18 21:00 12/15/18 08:15 Lopressor PO 12.5 mg Q12 [facility] Administration - Patient Studies Lab Studies: Microbiology Studies 12/10/18 11:30 Blood Culture - Preliminary Blood-Venous NO GROWTH AFTER 4 DAYS 12/10/18 11:30 Blood Culture - Preliminary Blood-Venous NO GROWTH AFTER 4 DAYS Lab Studies 12/15/18 12/15/18 12/15/18 Range/Units 04:30 04:30 04:30 WBC 7.9 (4.8-10.8) K/uL RBC 3.10 L (3.80-5.20) Mil/uL Hgb 9.9 L (12.0-16.0) g/dL Hct 29.5 L (34.0-47.0) % MCV 94.9 (81.0-99.0) fl MCH 31.9 H (27.0-31.0) pg MCHC 33.6 (33.0-37.0) g/dL RDW 16.6 H (11.5-14.5) % Plt Count 328 (130-400) K/uL MPV 7.5 (7.2-11.7) fl Neut % (Auto) 67.5 (50.0-75.0) % Lymph % (Auto) 17.9 L (20.0-40.0) % Mercer % (Auto) 8.2 (0.0-10.0) % Eos % (Auto) 5.7 H (0.0-4.0) % Baso % (Auto) 0.7 (0.0-2.0) % Neut # (Auto) 5.3 (1.8-7.0) K/uL Lymph # (Auto) 1.4 (1.0-4.3) K/uL Mercer # (Auto) 0.6 (0.0-0.8) K/uL Eos # (Auto) 0.5 (0.0-0.7) K/uL Baso # (Auto) 0.1 (0.0-0.2) K/uL PT 13.8 H (9.8-13.1) Seconds INR 1.2 APTT 77.5 H (25.6-37.1) Seconds Sodium 142 (132-148) mmol/l Potassium 4.2 (3.6-5.0) MMOL/L Chloride 104 (98-107) mmol/L Carbon Dioxide 25 (22-30) mmol/L Anion Gap 17 (10-20) BUN 69 H (7-17) mg/dl Creatinine 2.7 H (0.7-1.2) mg/dl Est GFR ( Amer) 22 Est GFR (Non-Af Amer) 18 Random Glucose 108 H (65-105) mg/dL Calcium 9.1 (8.4-10.2) mg/dL Total Bilirubin 0.6 (0.2-1.3) mg/dl AST 30 (14-36) U/L ALT 44 (9-52) U/L Alkaline Phosphatase 97 (38-126) U/L Total Protein 7.7 (6.3-8.2) G/DL Albumin 3.2 L (3.5-5.0) g/dL Globulin 4.5 H (2.2-3.9) gm/dL Albumin/Globulin Ratio 0.7 L (1.0-2.1) 12/14/18 Range/Units 15:48 WBC (4.8-10.8) K/uL RBC (3.80-5.20) Mil/uL Hgb (12.0-16.0) g/dL Hct (34.0-47.0) % MCV (81.0-99.0) fl MCH (27.0-31.0) pg MCHC (33.0-37.0) g/dL RDW (11.5-14.5) % Plt Count (130-400) K/uL MPV (7.2-11.7) fl Neut % (Auto) (50.0-75.0) % Lymph % (Auto) (20.0-40.0) % Mercer % (Auto) (0.0-10.0) % Eos % (Auto) (0.0-4.0) % Baso % (Auto) (0.0-2.0) % Neut # (Auto) (1.8-7.0) K/uL Lymph # (Auto) (1.0-4.3) K/uL Mercer # (Auto) (0.0-0.8) K/uL Eos # (Auto) (0.0-0.7) K/uL Baso # (Auto) (0.0-0.2) K/uL PT 14.2 H (9.8-13.1) Seconds INR 1.3 APTT (25.6-37.1) Seconds Sodium (132-148) mmol/l Potassium (3.6-5.0) MMOL/L Chloride (98-107) mmol/L Carbon Dioxide (22-30) mmol/L Anion Gap (10-20) BUN (7-17) mg/dl Creatinine (0.7-1.2) mg/dl Est GFR ( Amer) Est GFR (Non-Af Amer) Random Glucose (65-105) mg/dL Calcium (8.4-10.2) mg/dL Total Bilirubin (0.2-1.3) mg/dl AST (14-36) U/L ALT (9-52) U/L Alkaline Phosphatase (38-126) U/L Total Protein (6.3-8.2) G/DL Albumin (3.5-5.0) g/dL Globulin (2.2-3.9) gm/dL Albumin/Globulin Ratio (1.0-2.1) Laboratory Results - last 24 hr 12/14/18 12/15/18 12/15/18 15:48 04:30 04:30 WBC 7.9 RBC 3.10 L Hgb 9.9 L Hct 29.5 L MCV 94.9 MCH 31.9 H MCHC 33.6 RDW 16.6 H Plt Count 328 MPV 7.5 Neut % (Auto) 67.5 Lymph % (Auto) 17.9 L Mercer % (Auto) 8.2 Eos % (Auto) 5.7 H Baso % (Auto) 0.7 Neut # (Auto) 5.3 Lymph # (Auto) 1.4 Mercer # (Auto) 0.6 Eos # (Auto) 0.5 Baso # (Auto) 0.1 PT 14.2 H 13.8 H INR 1.3 1.2 APTT 77.5 H Sodium Potassium Chloride Carbon Dioxide Anion Gap BUN Creatinine Est GFR ( Amer) Est GFR (Non-Af Amer) Random Glucose Calcium Total Bilirubin AST ALT Alkaline Phosphatase Total Protein Albumin Globulin Albumin/Globulin Ratio 12/15/18 04:30 WBC RBC Hgb Hct MCV MCH MCHC RDW Plt Count MPV Neut % (Auto) Lymph % (Auto) Mercer % (Auto) Eos % (Auto) Baso % (Auto) Neut # (Auto) Lymph # (Auto) Mercer # (Auto) Eos # (Auto) Baso # (Auto) PT INR APTT Sodium 142 Potassium 4.2 Chloride 104 Carbon Dioxide 25 Anion Gap 17 BUN 69 H Creatinine 2.7 H Est GFR ( Amer) 22 Est GFR (Non-Af Amer) 18 Random Glucose 108 H Calcium 9.1 Total Bilirubin 0.6 AST 30 ALT 44 Alkaline Phosphatase 97 Total Protein 7.7 Albumin 3.2 L Globulin 4.5 H Albumin/Globulin Ratio 0.7 L Radiology Impressions: Radiology Impressions Chest X-Ray 12/14/18 09:00 IMPRESSION: No significant interval change compared to the prior examination(s). Critical Care Progress Note - Extremities/Vascular Does the Patient have a Central Venous Catheter?: No Does the Patient need a Central Venous Catheter?: No Does the Patient have a Olivarez Catheter?: No Does the Patient need a Olivarez Catheter?: No - Nutrition Nutrition: Nutrition Category Date Time Status Dysphagia/Modified Consistency Diet [DIET] Diets 12/09/18 Dinner Active Assessment/Plan (1) Acute hypoxemic respiratory failure Current Visit: Yes Status: Acute Priority: High Comment: Continue with ICU care for hemodynamic and Respiratory monitoring Wean off FIO2 Patient S/P extubation 12/08 Aggressive pulmonary toilet, chest PT, suctioning Maintain aspiration precautions Continue Antibiotics OOP PT/OT Continue nebulizer treatment (2) Acute pulmonary edema Current Visit: Yes Status: Acute Priority: High (3) CAP (community acquired pneumonia) Current Visit: Yes Status: Acute Priority: High Comment: Continue Antibiotics Continue IV Zyvox, Micafungin and Azactam Continue nebulizer treatment Pulmonary & ID consult appreciated (4) NSTEMI (non-ST elevated myocardial infarction) Current Visit: Yes Status: Acute Priority: High Comment: Optimize fluid status Patient on Heparin and Lasix drip Other management as per cardiology (5) Morbid obesity Current Visit: Yes Status: Acute Priority: High (6) Anemia Current Visit: Yes Status: Acute Priority: High
--- NOTE | 2018-12-15 17:20 | CP.PCM.PN ---
Subjective - Date & Time of Evaluation Date of Evaluation: 12/15/18 Time of Evaluation: 17:20 - Subjective Subjective: Improving H/H stable BUN Cr stable Still on iv heparin and antbx General debility Objective - Vital Signs/Intake and Output Vital Signs (last 24 hours): Temp Pulse Resp BP Pulse Ox 99.3 F 97 H 20 120/58 L 94 L 12/15/18 16:00 12/15/18 16:00 12/15/18 16:00 12/15/18 16:21 12/15/18 14:00 Intake and Output: 12/15/18 12/15/18 11:59 23:59 Intake Total 574 700 Output Total 1600 600 Balance -1026 100 - Medications Medications: Current Medications Acetaminophen (Tylenol 160mg/5ml Oral Soln) 160 mg PO ONCE PRN PRN Reason: Flu symptoms Acetylcysteine (Acetylcysteine 20%) 2 ml INH DAILY [facility] Last Admin: 12/15/18 07:45 Dose: 2 ml Albuterol Sulfate (Albuterol 0.083% Inhal Anastacia (2.5 Mg/3 Ml) Ud) 2.5 mg INH RQ4 PRN PRN Reason: Shortness of Breath Last Admin: 12/12/18 23:37 Dose: 2.5 mg Albuterol/Ipratropium (Duoneb 3 Mg/0.5 Mg (3 Ml) Ud) 3 ml INH RQID [facility] Last Admin: 12/15/18 15:48 Dose: 3 ml Famotidine (Pepcid) 20 mg IVP Q12 [facility] Last Admin: 12/15/18 08:24 Dose: 20 mg Furosemide (Lasix) 20 mg IVP BID [facility] Last Admin: 12/15/18 16:21 Dose: 20 mg Aztreonam 1 gm/ Sodium (Chloride) 100 mls @ 100 mls/hr IVPB Q12 [facility]; Protocol Last Admin: 12/15/18 08:07 Dose: 100 mls/hr Linezolid (Zyvox 600mg/300ml D5w) 600 mg in 300 mls @ 300 mls/hr IVPB Q12 [facility]; Protocol Last Admin: 12/15/18 08:28 Dose: 300 mls/hr Micafungin Sodium 100 mg/ (Sodium Chloride) 100 mls @ 100 mls/hr IVPB DAILY [facility]; Protocol Last Admin: 12/15/18 08:16 Dose: 100 mls/hr Heparin Sodium/Dextrose (Heparin 25,000 Units/250ml In D5w) 25,000 units in 250 mls @ 20 mls/hr IV .[id number] [facility]; Protocol Last Titration: 12/15/18 13:30 Dose: 20 mls/hr Metoprolol Tartrate (Lopressor) 12.5 mg PO Q12 [facility] Last Admin: 12/15/18 08:15 Dose: 12.5 mg - Labs Labs: 12/15/18 04:30 12/15/18 04:30 PT 13.8 Seconds (9.8-13.1) H 12/15/18 04:30 INR 1.2 12/15/18 04:30 APTT 77.5 Seconds (25.6-37.1) H 12/15/18 04:30 - Constitutional Appears: Chronically Ill - Head Exam Head Exam: ATRAUMATIC, NORMAL INSPECTION, NORMOCEPHALIC - Eye Exam Eye Exam: Normal appearance - ENT Exam ENT Exam: Normal Exam - Neck Exam Neck Exam: Full ROM - Respiratory Exam Respiratory Exam: Decreased Breath Sounds - Cardiovascular Exam Cardiovascular Exam: REGULAR RHYTHM, +S1, +S2 - GI/Abdominal Exam GI & Abdominal Exam: Soft - Extremities Exam Extremities Exam: Normal Inspection - Neurological Exam Neurological Exam: Alert, Awake - Psychiatric Exam Psychiatric exam: Flat Affect - Skin Skin Exam: Normal Color Assessment and Plan (1) CAP (community acquired pneumonia) Status: Acute (2) CHF exacerbation Status: Acute (3) DVT prophylaxis Status: Acute (4) History of aortic valve replacement Status: Chronic (5) Influenza A Status: Resolved (6) NSTEMI (non-ST elevated myocardial infarction) Status: Acute (7) Pneumonia and influenza Status: Acute (8) Respiratory distress Status: Acute (9) Respiratory failure with hypoxia and hypercapnia Status: Acute (10) Morbid obesity Status: Chronic (11) COPD (chronic obstructive pulmonary disease) Status: Suspected (12) Myocardial ischemia Status: Acute (13) Renal failure, acute Status: Acute (14) Hematoma Status: Acute (15) Sepsis Status: Acute
--- NOTE | 2018-12-15 20:53 | CP.PCM.PN ---
Subjective - Date & Time of Evaluation Date of Evaluation: 12/15/18 Time of Evaluation: 18:00 - Subjective Subjective: Feeling better Objective - Vital Signs/Intake and Output Vital Signs (last 24 hours): Temp Pulse Resp BP Pulse Ox 97.8 F 93 H 21 104/46 L 96 12/15/18 20:00 12/15/18 20:11 12/15/18 20:00 12/15/18 20:11 12/15/18 20:00 Intake and Output: 12/15/18 12/16/18 18:59 06:59 Intake Total 1170 500 Output Total 1200 Balance -30 500 - Medications Medications: Current Medications Acetaminophen (Tylenol 160mg/5ml Oral Soln) 160 mg PO ONCE PRN PRN Reason: Flu symptoms Acetylcysteine (Acetylcysteine 20%) 2 ml INH DAILY [facility] Last Admin: 12/15/18 07:45 Dose: 2 ml Albuterol Sulfate (Albuterol 0.083% Inhal Anastacia (2.5 Mg/3 Ml) Ud) 2.5 mg INH RQ4 PRN PRN Reason: Shortness of Breath Last Admin: 12/12/18 23:37 Dose: 2.5 mg Albuterol/Ipratropium (Duoneb 3 Mg/0.5 Mg (3 Ml) Ud) 3 ml INH RQID [facility] Last Admin: 12/15/18 19:06 Dose: 3 ml Famotidine (Pepcid) 20 mg IVP Q12 [facility] Last Admin: 12/15/18 20:20 Dose: 20 mg Furosemide (Lasix) 20 mg IVP BID [facility] Last Admin: 12/15/18 16:21 Dose: 20 mg Aztreonam 1 gm/ Sodium (Chloride) 100 mls @ 100 mls/hr IVPB Q12 [facility]; Protocol Last Admin: 12/15/18 20:10 Dose: 100 mls/hr Linezolid (Zyvox 600mg/300ml D5w) 600 mg in 300 mls @ 300 mls/hr IVPB Q12 [facility]; Protocol Last Admin: 12/15/18 20:10 Dose: 300 mls/hr Micafungin Sodium 100 mg/ (Sodium Chloride) 100 mls @ 100 mls/hr IVPB DAILY [facility]; Protocol Last Admin: 12/15/18 08:16 Dose: 100 mls/hr Heparin Sodium/Dextrose (Heparin 25,000 Units/250ml In D5w) 25,000 units in 250 mls @ 20 mls/hr IV .[id number] [facility]; Protocol Last Titration: 12/15/18 13:30 Dose: 20 mls/hr Metoprolol Tartrate (Lopressor) 12.5 mg PO Q12 [facility] Last Admin: 12/15/18 20:11 Dose: 12.5 mg - Labs Labs: 12/15/18 04:30 12/15/18 04:30 PT 13.8 Seconds (9.8-13.1) H 12/15/18 04:30 INR 1.2 12/15/18 04:30 APTT 77.5 Seconds (25.6-37.1) H 12/15/18 04:30 - Head Exam Head Exam: ATRAUMATIC - Eye Exam Eye Exam: Normal appearance - ENT Exam ENT Exam: Mucous Membranes Dry - Respiratory Exam Respiratory Exam: NORMAL BREATHING PATTERN - Cardiovascular Exam Cardiovascular Exam: +S1, +S2 - GI/Abdominal Exam GI & Abdominal Exam: Normal Bowel Sounds Assessment and Plan (1) Anemia Assessment & Plan: H/H improved anemia of CKD monitor for bleeding while on heparin Status: Acute (2) Coagulopathy Assessment & Plan: on heparin Status: Acute
[2018-12-15 21:01] LABS: INR 1.2
[2018-12-15 21:04] LABS: PARTIAL THROMBOPLASTIN TIME 75.1 Seconds (25.6-37.1)
--- NOTE | 2018-12-15 22:34 | CP.PCM.PN ---
<Celestine Calhoun - Last Filed: 12/15/18 22:32> Subjective - Date & Time of Evaluation Date of Evaluation: 12/15/18 Time of Evaluation: 22:32 - Subjective Subjective: Celestine Calhoun DO PGY1 - Internal Medicine [employer] - Cardiology Note for Dr. Sutton Patient was seen and examined this evening at bedside in ICU , no acute events reported throughout the day, patient has been normotensive w/ regular HR. no complaints voice at bedside. Denies chest pain palpitations and shortness of breath. Objective - Vital Signs/Intake and Output Vital Signs (last 24 hours): Temp Pulse Resp BP Pulse Ox 97.8 F 93 H 21 104/46 L 96 12/15/18 20:00 12/15/18 20:11 12/15/18 20:00 12/15/18 20:11 12/15/18 20:00 Intake and Output: 12/15/18 12/16/18 18:59 06:59 Intake Total 1170 500 Output Total 1200 Balance -30 500 - Medications Medications: Current Medications Acetaminophen (Tylenol 160mg/5ml Oral Soln) 160 mg PO ONCE PRN PRN Reason: Flu symptoms Acetylcysteine (Acetylcysteine 20%) 2 ml INH DAILY [facility] Last Admin: 12/15/18 07:45 Dose: 2 ml Albuterol Sulfate (Albuterol 0.083% Inhal Anastacia (2.5 Mg/3 Ml) Ud) 2.5 mg INH RQ4 PRN PRN Reason: Shortness of Breath Last Admin: 12/12/18 23:37 Dose: 2.5 mg Albuterol/Ipratropium (Duoneb 3 Mg/0.5 Mg (3 Ml) Ud) 3 ml INH RQID [facility] Last Admin: 12/15/18 19:06 Dose: 3 ml Famotidine (Pepcid) 20 mg IVP Q12 [facility] Last Admin: 12/15/18 20:20 Dose: 20 mg Furosemide (Lasix) 20 mg IVP BID [facility] Last Admin: 12/15/18 16:21 Dose: 20 mg Aztreonam 1 gm/ Sodium (Chloride) 100 mls @ 100 mls/hr IVPB Q12 [facility]; Protocol Last Admin: 12/15/18 20:10 Dose: 100 mls/hr Linezolid (Zyvox 600mg/300ml D5w) 600 mg in 300 mls @ 300 mls/hr IVPB Q12 [facility]; Protocol Last Admin: 12/15/18 20:10 Dose: 300 mls/hr Micafungin Sodium 100 mg/ (Sodium Chloride) 100 mls @ 100 mls/hr IVPB DAILY [facility]; Protocol Last Admin: 12/15/18 08:16 Dose: 100 mls/hr Heparin Sodium/Dextrose (Heparin 25,000 Units/250ml In D5w) 25,000 units in 250 mls @ 20 mls/hr IV .[id number] [facility]; Protocol Last Titration: 12/15/18 13:30 Dose: 20 mls/hr Metoprolol Tartrate (Lopressor) 12.5 mg PO Q12 [facility] Last Admin: 12/15/18 20:11 Dose: 12.5 mg - Labs Labs: 12/15/18 04:30 12/15/18 04:30 PT 14.0 Seconds (9.8-13.1) H 12/15/18 20:49 INR 1.2 12/15/18 20:49 APTT 75.1 Seconds (25.6-37.1) H 12/15/18 20:49 - Constitutional Appears: Non-toxic, No Acute Distress - Head Exam Head Exam: ATRAUMATIC, NORMOCEPHALIC - Eye Exam Eye Exam: EOMI, Normal appearance, PERRL. absent: Scleral icterus - ENT Exam Additional comments: Moist mucous membrane - Respiratory Exam Respiratory Exam: Mild wheezes Additional comments: - Cardiovascular Exam Cardiovascular Exam: RRR, +S1, +S2 Additional comments: - GI/Abdominal Exam GI & Abdominal Exam: Soft. absent: Tenderness Additional comments: Obese - Extremities Exam Additional comments: BL LE PT/DP 2+ Assessment and Plan (1) CAP (community acquired pneumonia) Status: Acute (2) CHF exacerbation Status: Acute (3) NSTEMI (non-ST elevated myocardial infarction) Status: Acute (4) Morbid obesity Status: Chronic (5) COPD (chronic obstructive pulmonary disease) Status: Suspected - Assessment and Plan (Free Text) Plan: Continue Toprol 12.5 Q12 Continue Warfarin 7.5mg Daily INR 1.2 today C/w heparin bridge Monitor for s/s bleeding Further reccs per Dr. Sutton <Isaak Sutton - Last Filed: 12/15/18 23:26> Objective - Vital Signs/Intake and Output Vital Signs (last 24 hours): Temp Pulse Resp BP Pulse Ox 97.8 F 93 H 16 121/63 98 12/15/18 20:00 12/15/18 22:00 12/15/18 22:00 12/15/18 22:00 12/15/18 22:00 Intake and Output: 12/15/18 12/16/18 18:59 06:59 Intake Total 1170 580 Output Total 1200 Balance -30 580 - Medications Medications: Current Medications Acetaminophen (Tylenol 160mg/5ml Oral Soln) 160 mg PO ONCE PRN PRN Reason: Flu symptoms Acetylcysteine (Acetylcysteine 20%) 2 ml INH DAILY [facility] Last Admin: 12/15/18 07:45 Dose: 2 ml Albuterol Sulfate (Albuterol 0.083% Inhal Anastacia (2.5 Mg/3 Ml) Ud) 2.5 mg INH RQ4 PRN PRN Reason: Shortness of Breath Last Admin: 12/12/18 23:37 Dose: 2.5 mg Albuterol/Ipratropium (Duoneb 3 Mg/0.5 Mg (3 Ml) Ud) 3 ml INH RQID [facility] Last Admin: 12/15/18 19:06 Dose: 3 ml Famotidine (Pepcid) 20 mg IVP Q12 [facility] Last Admin: 12/15/18 20:20 Dose: 20 mg Furosemide (Lasix) 20 mg IVP BID [facility] Last Admin: 12/15/18 16:21 Dose: 20 mg Aztreonam 1 gm/ Sodium (Chloride) 100 mls @ 100 mls/hr IVPB Q12 [facility]; Protocol Last Admin: 12/15/18 20:10 Dose: 100 mls/hr Linezolid (Zyvox 600mg/300ml D5w) 600 mg in 300 mls @ 300 mls/hr IVPB Q12 [facility]; Protocol Last Admin: 12/15/18 20:10 Dose: 300 mls/hr Micafungin Sodium 100 mg/ (Sodium Chloride) 100 mls @ 100 mls/hr IVPB DAILY [facility]; Protocol Last Admin: 12/15/18 08:16 Dose: 100 mls/hr Heparin Sodium/Dextrose (Heparin 25,000 Units/250ml In D5w) 25,000 units in 250 mls @ 20 mls/hr IV .[id number] [facility]; Protocol Last Titration: 12/15/18 13:30 Dose: 20 mls/hr Metoprolol Tartrate (Lopressor) 12.5 mg PO Q12 [facility] Last Admin: 12/15/18 20:11 Dose: 12.5 mg - Labs Labs: 12/15/18 04:30 12/15/18 04:30 PT 14.0 Seconds (9.8-13.1) H 12/15/18 20:49 INR 1.2 12/15/18 20:49 APTT 75.1 Seconds (25.6-37.1) H 12/15/18 20:49 Assessment and Plan (1) NSTEMI (non-ST elevated myocardial infarction) Status: Acute (2) CAP (community acquired pneumonia) Status: Acute (3) CHF exacerbation Status: Acute (4) Respiratory distress Status: Acute (5) Respiratory failure with hypoxia and hypercapnia Status: Acute (6) History of aortic valve replacement Status: Chronic (7) Morbid obesity Status: Chronic (8) COPD (chronic obstructive pulmonary disease) Status: Suspected Attending/Attestation - Attestation I have personally seen and examined this patient.: Yes I have fully participated in the care of the patient.: Yes I have reviewed all pertinent clinical information, including history, physical exam and plan: Yes Notes (Text): 12/15/18 23:25 cont IV heparin with coumadin till INR therpeutic 2.5-2.5 cont bb add low dose arb
--- NOTE | 2018-12-15 22:50 | CP.PCM.PN ---
Subjective - Date & Time of Evaluation Date of Evaluation: 12/15/18 Time of Evaluation: 10:30 - Subjective Subjective: Patient wanting to get out of bed; tolerating diet; some cough; urinating well; Objective - Vital Signs/Intake and Output Vital Signs (last 24 hours): Temp Pulse Resp BP Pulse Ox 97.8 F 93 H 21 104/46 L 96 12/15/18 20:00 12/15/18 20:11 12/15/18 20:00 12/15/18 20:11 12/15/18 20:00 Intake and Output: 12/15/18 12/16/18 18:59 06:59 Intake Total 1170 500 Output Total 1200 Balance -30 500 - Medications Medications: Current Medications Acetaminophen (Tylenol 160mg/5ml Oral Soln) 160 mg PO ONCE PRN PRN Reason: Flu symptoms Acetylcysteine (Acetylcysteine 20%) 2 ml INH DAILY [facility] Last Admin: 12/15/18 07:45 Dose: 2 ml Albuterol Sulfate (Albuterol 0.083% Inhal Anastacia (2.5 Mg/3 Ml) Ud) 2.5 mg INH RQ4 PRN PRN Reason: Shortness of Breath Last Admin: 12/12/18 23:37 Dose: 2.5 mg Albuterol/Ipratropium (Duoneb 3 Mg/0.5 Mg (3 Ml) Ud) 3 ml INH RQID [facility] Last Admin: 12/15/18 19:06 Dose: 3 ml Famotidine (Pepcid) 20 mg IVP Q12 [facility] Last Admin: 12/15/18 20:20 Dose: 20 mg Furosemide (Lasix) 20 mg IVP BID [facility] Last Admin: 12/15/18 16:21 Dose: 20 mg Aztreonam 1 gm/ Sodium (Chloride) 100 mls @ 100 mls/hr IVPB Q12 [facility]; Protocol Last Admin: 12/15/18 20:10 Dose: 100 mls/hr Linezolid (Zyvox 600mg/300ml D5w) 600 mg in 300 mls @ 300 mls/hr IVPB Q12 [facility]; Protocol Last Admin: 12/15/18 20:10 Dose: 300 mls/hr Micafungin Sodium 100 mg/ (Sodium Chloride) 100 mls @ 100 mls/hr IVPB DAILY [facility]; Protocol Last Admin: 12/15/18 08:16 Dose: 100 mls/hr Heparin Sodium/Dextrose (Heparin 25,000 Units/250ml In D5w) 25,000 units in 250 mls @ 20 mls/hr IV .[id number] [facility]; Protocol Last Titration: 12/15/18 13:30 Dose: 20 mls/hr Metoprolol Tartrate (Lopressor) 12.5 mg PO Q12 [facility] Last Admin: 12/15/18 20:11 Dose: 12.5 mg - Labs Labs: 12/15/18 04:30 12/15/18 04:30 PT 14.0 Seconds (9.8-13.1) H 12/15/18 20:49 INR 1.2 12/15/18 20:49 APTT 75.1 Seconds (25.6-37.1) H 12/15/18 20:49 - Constitutional Appears: Non-toxic, No Acute Distress - Eye Exam Eye Exam: Normal appearance - Respiratory Exam Respiratory Exam: Wheezes. absent: Respiratory Distress - Cardiovascular Exam Cardiovascular Exam: RRR. absent: Gallop, Rubs - GI/Abdominal Exam GI & Abdominal Exam: Soft. absent: Distended, Tenderness - Extremities Exam Additional comments: edema of dependent area - Neurological Exam Neurological Exam: Alert, Awake - Psychiatric Exam Psychiatric exam: absent: Agitated - Skin Skin Exam: Warm. absent: Cyanosis Assessment and Plan (1) Renal failure, acute Assessment & Plan: ATN +/- AIN likely from PPI; non-oliguric renal failure, with renal function overall improved though still far from baseline; stable volume and electrolyte status; -d/c HD catheter; -continue IV lasix 20 mg bid; -avoid nephrotoxic agents (NSAIDS, PPI); -will continue to monitor renal function closely; holding off on giving steroids for now; -keep MAP > 65; Status: Acute (2) Acute hypoxemic respiratory failure Status: Acute (3) Anemia Status: Acute (4) Hypotension Status: Acute (5) Sepsis Status: Acute
[2018-12-16] MEDS: Heparin 25,000units in D5W 25,000 UNITS/250 ML BAG IV SCH ×2 (00:19→15:52)
[2018-12-16 05:26] LABS: HEMOGLOBIN 9.6 g/dL (12.0-16.0); MEAN CORPUSCULAR HEMOGLOBIN 31.6 pg (27.0-31.0); MEAN CORPUSCULAR HGB CONC 33.2 g/dL (33.0-37.0); RBC 3.06 Mil/uL (3.80-5.20); RED CELL DISTRIBUTION WIDTH 17.7 % (11.5-14.5); WHITE BLOOD COUNT 7.5 K/uL (4.8-10.8)
[2018-12-16] MEDS: Albuterol-Ipratrop 3 mg / 0.5 (3 ml) UD INH SCH ×4 (07:57→19:30)
[2018-12-16] MEDS: Acetylcysteine 20% Inhal Soln (4ml) INH SCH (08:00)
[2018-12-16] MEDS: Aztreonam 1 GM in Sodium Chloride 0.9% 100 ML IVPB SCH ×2 (08:02→20:46)
[2018-12-16] MEDS: Micafungin 100 MG in Sodium Chloride 0.9% 100 ML IVPB SCH (08:04)
[2018-12-16] MEDS: Linezolid 600 mg in D5W 300 ml 600 MG/300 ML BAG IVPB SCH ×2 (08:29→21:45)
--- NOTE | 2018-12-16 12:03 | CP.PCM.PN ---
Subjective - Date & Time of Evaluation Date of Evaluation: 12/16/18 Time of Evaluation: 08:00 - Subjective Subjective: day 08/30 IV rx for HAP afebrile remains weak and bed bound iv rx reordered Objective - Vital Signs/Intake and Output Vital Signs (last 24 hours): Temp Pulse Resp BP Pulse Ox 98.5 F 88 19 105/50 L 95 12/16/18 08:00 12/16/18 10:00 12/16/18 10:00 12/16/18 10:00 12/16/18 10:00 Intake and Output: 12/16/18 12/16/18 06:59 18:59 Intake Total 1060 280 Output Total 900 600 Balance 160 -320 - Medications Medications: Current Medications Acetylcysteine (Acetylcysteine 20%) 2 ml INH DAILY [facility] Last Admin: 12/16/18 08:00 Dose: 2 ml Albuterol Sulfate (Albuterol 0.083% Inhal Anastacia (2.5 Mg/3 Ml) Ud) 2.5 mg INH RQ4 PRN PRN Reason: Shortness of Breath Last Admin: 12/12/18 23:37 Dose: 2.5 mg Albuterol/Ipratropium (Duoneb 3 Mg/0.5 Mg (3 Ml) Ud) 3 ml INH RQID [facility] Last Admin: 12/16/18 07:57 Dose: 3 ml Famotidine (Pepcid) 20 mg IVP Q12 [facility] Last Admin: 12/16/18 08:40 Dose: 20 mg Furosemide (Lasix) 20 mg IVP BID [facility] Last Admin: 12/16/18 08:25 Dose: 20 mg Aztreonam 1 gm/ Sodium (Chloride) 100 mls @ 100 mls/hr IVPB Q12 [facility]; Protocol Last Admin: 12/16/18 08:02 Dose: 100 mls/hr Linezolid (Zyvox 600mg/300ml D5w) 600 mg in 300 mls @ 300 mls/hr IVPB Q12 [facility]; Protocol Last Admin: 12/16/18 08:29 Dose: 300 mls/hr Micafungin Sodium 100 mg/ (Sodium Chloride) 100 mls @ 100 mls/hr IVPB DAILY [facility]; Protocol Last Admin: 12/16/18 08:04 Dose: 100 mls/hr Heparin Sodium/Dextrose (Heparin 25,000 Units/250ml In D5w) 25,000 units in 250 mls @ 20 mls/hr IV .[id number] [facility]; Protocol Last Admin: 12/16/18 00:19 Dose: 20 mls/hr Metoprolol Tartrate (Lopressor) 12.5 mg PO Q12 [facility] Last Admin: 12/16/18 08:28 Dose: 12.5 mg - Labs Labs: 12/16/18 04:20 12/16/18 04:20 PT 14.0 Seconds (9.8-13.1) H 12/15/18 20:49 INR 1.2 12/15/18 20:49 APTT 80.6 Seconds (25.6-37.1) H 12/16/18 04:20 - Constitutional Appears: Non-toxic, Chronically Ill - Head Exam Head Exam: NORMOCEPHALIC - Eye Exam Eye Exam: absent: Scleral icterus - ENT Exam ENT Exam: Mucous Membranes Dry, Normal External Ear Exam - Neck Exam Neck Exam: absent: Lymphadenopathy - Respiratory Exam Respiratory Exam: Decreased Breath Sounds - Cardiovascular Exam Cardiovascular Exam: REGULAR RHYTHM - GI/Abdominal Exam GI & Abdominal Exam: Distended, Soft - Rectal Exam Rectal Exam: Deferred - Exam Exam: NORMAL INSPECTION - Extremities Exam Extremities Exam: absent: Pedal Edema - Back Exam Back Exam: absent: CVA tenderness (L), CVA tenderness (R) - Neurological Exam Neurological Exam: Alert, Awake, Oriented x3 Assessment and Plan (1) Acute hypoxemic respiratory failure Status: Acute (2) Anemia Status: Acute (3) CAP (community acquired pneumonia) Status: Acute (4) CHF exacerbation Status: Acute (5) Coagulopathy Status: Acute (6) Hematoma Status: Acute (7) Hypotension Status: Acute (8) Influenza A Status: Resolved (9) Leukocytosis Status: Acute (10) NSTEMI (non-ST elevated myocardial infarction) Status: Acute (11) Pneumonia and influenza Status: Acute (12) Renal failure, acute Status: Acute (13) Sepsis Status: Acute (14) History of aortic valve replacement Status: Chronic (15) COPD (chronic obstructive pulmonary disease) Status: Suspected (16) Myocardial ischemia Status: Acute - Assessment and Plan (Free Text) Assessment: day 08/30 IV rx for HAP
--- NOTE | 2018-12-16 12:10 | CP.PCM.PN ---
Subjective - Date & Time of Evaluation Date of Evaluation: 12/16/18 Time of Evaluation: 13:56 - Subjective Subjective: Patient week bed bound with severe generalized debility Continue present rx Objective - Vital Signs/Intake and Output Vital Signs (last 24 hours): Temp Pulse Resp BP Pulse Ox 98.5 F 88 19 105/50 L 95 12/16/18 08:00 12/16/18 10:00 12/16/18 10:00 12/16/18 10:00 12/16/18 10:00 Intake and Output: 12/16/18 12/16/18 11:59 23:59 Intake Total 560 Output Total 1500 Balance -940 - Medications Medications: Current Medications Acetylcysteine (Acetylcysteine 20%) 2 ml INH DAILY [facility] Last Admin: 12/16/18 08:00 Dose: 2 ml Albuterol Sulfate (Albuterol 0.083% Inhal Anastacia (2.5 Mg/3 Ml) Ud) 2.5 mg INH RQ4 PRN PRN Reason: Shortness of Breath Last Admin: 12/12/18 23:37 Dose: 2.5 mg Albuterol/Ipratropium (Duoneb 3 Mg/0.5 Mg (3 Ml) Ud) 3 ml INH RQID [facility] Last Admin: 12/16/18 07:57 Dose: 3 ml Famotidine (Pepcid) 20 mg IVP Q12 [facility] Last Admin: 12/16/18 08:40 Dose: 20 mg Furosemide (Lasix) 20 mg IVP BID [facility] Last Admin: 12/16/18 08:25 Dose: 20 mg Aztreonam 1 gm/ Sodium (Chloride) 100 mls @ 100 mls/hr IVPB Q12 [facility]; Protocol Last Admin: 12/16/18 08:02 Dose: 100 mls/hr Linezolid (Zyvox 600mg/300ml D5w) 600 mg in 300 mls @ 300 mls/hr IVPB Q12 [facility]; Protocol Last Admin: 12/16/18 08:29 Dose: 300 mls/hr Micafungin Sodium 100 mg/ (Sodium Chloride) 100 mls @ 100 mls/hr IVPB DAILY [facility]; Protocol Last Admin: 12/16/18 08:04 Dose: 100 mls/hr Heparin Sodium/Dextrose (Heparin 25,000 Units/250ml In D5w) 25,000 units in 250 mls @ 20 mls/hr IV .[id number] [facility]; Protocol Last Admin: 12/16/18 00:19 Dose: 20 mls/hr Metoprolol Tartrate (Lopressor) 12.5 mg PO Q12 [facility] Last Admin: 12/16/18 08:28 Dose: 12.5 mg - Labs Labs: 12/16/18 04:20 12/16/18 04:20 PT 14.0 Seconds (9.8-13.1) H 12/15/18 20:49 INR 1.2 12/15/18 20:49 APTT 80.6 Seconds (25.6-37.1) H 12/16/18 04:20 - Constitutional Appears: Chronically Ill - Head Exam Head Exam: ATRAUMATIC, NORMAL INSPECTION, NORMOCEPHALIC - Eye Exam Eye Exam: Normal appearance - ENT Exam ENT Exam: Mucous Membranes Dry - Respiratory Exam Respiratory Exam: Decreased Breath Sounds - Cardiovascular Exam Cardiovascular Exam: REGULAR RHYTHM, +S1, +S2 - GI/Abdominal Exam GI & Abdominal Exam: Soft - Neurological Exam Neurological Exam: Alert, Awake - Psychiatric Exam Psychiatric exam: Flat Affect - Skin Skin Exam: Normal Color Assessment and Plan (1) CAP (community acquired pneumonia) Status: Acute (2) CHF exacerbation Status: Acute (3) DVT prophylaxis Status: Acute (4) History of aortic valve replacement Status: Chronic (5) Influenza A Status: Resolved (6) NSTEMI (non-ST elevated myocardial infarction) Status: Acute (7) Pneumonia and influenza Status: Acute (8) Respiratory distress Status: Acute (9) Respiratory failure with hypoxia and hypercapnia Status: Acute (10) Morbid obesity Status: Chronic (11) COPD (chronic obstructive pulmonary disease) Status: Suspected (12) Myocardial ischemia Status: Acute (13) Renal failure, acute Status: Acute (14) Hematoma Status: Acute (15) Sepsis Status: Acute
--- NOTE | 2018-12-16 12:48 | CP.PCM.PN ---
<Hebert Alberto - Last Filed: 12/16/18 12:50> Subjective - Date & Time of Evaluation Date of Evaluation: 12/16/18 Time of Evaluation: 08:00 - Subjective Subjective: Pt seen and examined at bedside. Denies acute overnight events. Denies SOB. Currently on NC 2L. Remains afebrile. Objective - Vital Signs/Intake and Output Vital Signs (last 24 hours): Temp Pulse Resp BP Pulse Ox 97.7 F 98 H 18 105/50 L 95 12/16/18 12:00 12/16/18 12:00 12/16/18 12:00 12/16/18 10:00 12/16/18 12:00 Intake and Output: 12/16/18 12/16/18 06:59 18:59 Intake Total 1060 280 Output Total 900 600 Balance 160 -320 - Medications Medications: Current Medications Acetylcysteine (Acetylcysteine 20%) 2 ml INH DAILY [facility] Last Admin: 12/16/18 08:00 Dose: 2 ml Albuterol Sulfate (Albuterol 0.083% Inhal Anastacia (2.5 Mg/3 Ml) Ud) 2.5 mg INH RQ4 PRN PRN Reason: Shortness of Breath Last Admin: 12/12/18 23:37 Dose: 2.5 mg Albuterol/Ipratropium (Duoneb 3 Mg/0.5 Mg (3 Ml) Ud) 3 ml INH RQID [facility] Last Admin: 12/16/18 12:17 Dose: Not Given Famotidine (Pepcid) 20 mg IVP Q12 [facility] Last Admin: 12/16/18 08:40 Dose: 20 mg Furosemide (Lasix) 20 mg IVP BID [facility] Last Admin: 12/16/18 08:25 Dose: 20 mg Aztreonam 1 gm/ Sodium (Chloride) 100 mls @ 100 mls/hr IVPB Q12 [facility]; Protocol Last Admin: 12/16/18 08:02 Dose: 100 mls/hr Linezolid (Zyvox 600mg/300ml D5w) 600 mg in 300 mls @ 300 mls/hr IVPB Q12 [facility]; Protocol Last Admin: 12/16/18 08:29 Dose: 300 mls/hr Micafungin Sodium 100 mg/ (Sodium Chloride) 100 mls @ 100 mls/hr IVPB DAILY [facility]; Protocol Last Admin: 12/16/18 08:04 Dose: 100 mls/hr Heparin Sodium/Dextrose (Heparin 25,000 Units/250ml In D5w) 25,000 units in 250 mls @ 20 mls/hr IV .[id number] [facility]; Protocol Last Admin: 12/16/18 00:19 Dose: 20 mls/hr Metoprolol Tartrate (Lopressor) 12.5 mg PO Q12 [facility] Last Admin: 12/16/18 08:28 Dose: 12.5 mg - Labs Labs: 12/16/18 04:20 12/16/18 04:20 PT 14.0 Seconds (9.8-13.1) H 12/15/18 20:49 INR 1.2 12/15/18 20:49 APTT 80.6 Seconds (25.6-37.1) H 12/16/18 04:20 - Eye Exam Eye Exam: EOMI - ENT Exam ENT Exam: Mucous Membranes Moist - Respiratory Exam Respiratory Exam: Decreased Breath Sounds, Wheezes (expiratory). absent: Chest Wall Tenderness Additional comments: trachea midline - Cardiovascular Exam Cardiovascular Exam: REGULAR RHYTHM, +S1, +S2 - GI/Abdominal Exam GI & Abdominal Exam: Soft, Normal Bowel Sounds. absent: Tenderness - Neurological Exam Neurological Exam: Alert, Awake - Psychiatric Exam Psychiatric exam: Normal Affect, Normal Mood Assessment and Plan (1) Respiratory failure with hypoxia and hypercapnia Status: Acute (2) Influenza A Status: Resolved (3) Pneumonia and influenza Status: Acute (4) Morbid obesity Status: Chronic (5) COPD (chronic obstructive pulmonary disease) Status: Suspected - Assessment and Plan (Free Text) Assessment: 58 yo F with pmhx of HTN, COPD, hx of aortic valve replacement and morbid obesity admitted for respiratory failure with hypoxia and hypercapnia, Influenza A, Pneumonia and NSTEMI Plan: Pt currently saturating well on NC at 2 L; tapered Labs, imaging, team notes reviewed Remains afebrile c/w Acetylcysteine, Duoneb -Albuterol prn IVabx: Aztreonam, micafungin, linezolid as per ID. Day 10/14 Continue with PT for improved mobilization Case and plan d/w Dr. Snow Alberto MD PGY-2 <Froylan Adamson - Last Filed: 12/16/18 14:30> Subjective - Subjective Subjective: The patient was seen on rounds in the intensive care unit this morning. The physical findings were reviewed and discussed with the resident. Current diagnosis and management were discussed as well. The EMR entry is accurate description of today's activity. Objective - Vital Signs/Intake and Output Vital Signs (last 24 hours): Temp Pulse Resp BP Pulse Ox 97.7 F 98 H 18 105/50 L 95 12/16/18 12:00 12/16/18 12:00 12/16/18 12:00 12/16/18 10:00 12/16/18 12:00 Intake and Output: 12/16/18 12/16/18 11:59 23:59 Intake Total 560 90 Output Total 1500 200 Balance -940 -110 - Medications Medications: Current Medications Acetylcysteine (Acetylcysteine 20%) 2 ml INH DAILY PINKY Last Admin: 12/16/18 08:00 Dose: 2 ml Albuterol Sulfate (Albuterol 0.083% Inhal Anastacia (2.5 Mg/3 Ml) Ud) 2.5 mg INH RQ4 PRN PRN Reason: Shortness of Breath Last Admin: 12/12/18 23:37 Dose: 2.5 mg Albuterol/Ipratropium (Duoneb 3 Mg/0.5 Mg (3 Ml) Ud) 3 ml INH RQID PINKY Last Admin: 12/16/18 12:17 Dose: Not Given Famotidine (Pepcid) 20 mg IVP Q12 [facility] Last Admin: 12/16/18 08:40 Dose: 20 mg Furosemide (Lasix) 20 mg IVP BID PINKY Last Admin: 12/16/18 08:25 Dose: 20 mg Aztreonam 1 gm/ Sodium (Chloride) 100 mls @ 100 mls/hr IVPB Q12 [facility]; Protocol Last Admin: 12/16/18 08:02 Dose: 100 mls/hr Linezolid (Zyvox 600mg/300ml D5w) 600 mg in 300 mls @ 300 mls/hr IVPB Q12 [facility]; Protocol Last Admin: 12/16/18 08:29 Dose: 300 mls/hr Micafungin Sodium 100 mg/ (Sodium Chloride) 100 mls @ 100 mls/hr IVPB DAILY [facility]; Protocol Last Admin: 12/16/18 08:04 Dose: 100 mls/hr Heparin Sodium/Dextrose (Heparin 25,000 Units/250ml In D5w) 25,000 units in 250 mls @ 20 mls/hr IV .[id number] [facility]; Protocol Last Admin: 12/16/18 00:19 Dose: 20 mls/hr Metoprolol Tartrate (Lopressor) 12.5 mg PO Q12 [facility] Last Admin: 12/16/18 08:28 Dose: 12.5 mg - Labs Labs: 12/16/18 04:20 12/16/18 04:20 PT 14.0 Seconds (9.8-13.1) H 12/15/18 20:49 INR 1.2 12/15/18 20:49 APTT 80.6 Seconds (25.6-37.1) H 12/16/18 04:20 Assessment and Plan (1) Respiratory failure with hypoxia and hypercapnia Status: Acute (2) Influenza A Status: Resolved (3) Pneumonia and influenza Status: Acute (4) Morbid obesity Status: Chronic (5) COPD (chronic obstructive pulmonary disease) Status: Suspected
--- NOTE | 2018-12-16 16:27 | CP.CCUPN ---
CCU Subjective - Physician Review Subjective (Free Text): Extubated over a week ago, neuromental status remains intact and well, in a good mood, observed being able to dangle legs over the side of the bed with PT assistance, but poor stability in being able to stand on her feet. Off HD and temp catheter removed yesterday. Undergoing loading with warfarin today as day #3. Urine output recorded as 900ml over the last 12H, on low dose IV Lasix. Overall fluid balance remains near-even. No fever spikes last 5 days! SBP improved and variable from 100s to 120s. HR 90s sinus. SPo2 97% on RA as she doesnt keep NC in place. ROS: No other pertinent negs or positives on 10+ system review PMSFH: All other Nursing and physician documentation reviewed to date; no new pertinent info noted relevant to current medical problems. EXAM- HEENT: no icterus, no gaze preference NECK: No JVD visible given short neck and overall obesity, supple, carotids equal upstroke bilat/no bruit. Resolving underlying ecchymoses and hematoma noted; no increase in size or extent from previous descriptions. CHEST: resolving upper chest ecchymoses noted extending form R shoulder across upper chest to left side; decreased BS at the bases, especially R base; no wheezes audible bilaterally. HEART: regular, distant, S1S2, no rubs or murmurs noted ABD: soft and obese, nontender, no guarding, no organomegaly, BS hypoactive. EXT: trace leg edema, no calf tenderness or palpable cords, distal pulses intact and symmetrical. RUEE PICC (done yesterday) NEURO: moves and exhibits + tone in all extremities. SKIN: no rashes, warm and dry LABS: WBC= 7.5 HGB= 9.6 PLTs= 278K Na= 141 K= 4.0 CL= 106 HCO3= 26 BUN/Cr= 66/2.4 BS= 113 IMPRESSION / MAJOR PROBLEMS NOW: 1. Acute hypercarbic resp failure 2 COPD Exacerbation /Bilat pneumonia, NSTEMI with Acute Pulm Edema 2. Influenza Viral resp infection, r/o superimposed bilateral bacterial PNA 3. GI bleed (r/o stress gastritis versus other colitis disorder) and diffuse upper chest and neck ecchymoses (from previous R subclavian and R IJ vein venipuncture attempts during TLC placement) from warfarin coagulopathy. 4. SEDA, r/o ATN, AIN 5. s /p AVR, on AC with heparin drip 6. Morbid obesity PLAN: 1. Continue warfarin loading, check PT/INR in AM. 2. Stable for telemetry bed. 3. ZYvox/ Micafungin/ Aztreo as per ID. 4. Continue optimization to improve tolerance as goal for Acute Rehab therapy.
--- NOTE | 2018-12-16 21:03 | CP.PCM.PN ---
<Celestine Calhoun - Last Filed: 12/16/18 21:00> Subjective - Date & Time of Evaluation Date of Evaluation: 12/16/18 Time of Evaluation: 21:00 - Subjective Subjective: Celestine Calhoun DO PGY1 - Internal Medicine Computer Network Support Specialist - Cardiology Note for Dr. Sutton Patient was seen and evaluated at bedside this evening in ICU' NO acute events reported overnight Patient is doing well w/ physical therapy; c/o some weakness in leg - reassured patient LE strength will improve with PT No complaints of CP, SOB, Palpitations today Objective - Vital Signs/Intake and Output Vital Signs (last 24 hours): Temp Pulse Resp BP Pulse Ox 98.0 F 87 14 110/49 L 97 12/16/18 16:00 12/16/18 20:00 12/16/18 20:00 12/16/18 20:00 12/16/18 20:00 Intake and Output: 12/16/18 12/17/18 18:59 06:59 Intake Total 960 104 Output Total 1250 Balance -290 104 - Medications Medications: Current Medications Acetylcysteine (Acetylcysteine 20%) 2 ml INH DAILY PINKY Last Admin: 12/16/18 08:00 Dose: 2 ml Albuterol Sulfate (Albuterol 0.083% Inhal Anastacia (2.5 Mg/3 Ml) Ud) 2.5 mg INH RQ4 PRN PRN Reason: Shortness of Breath Last Admin: 12/12/18 23:37 Dose: 2.5 mg Albuterol/Ipratropium (Duoneb 3 Mg/0.5 Mg (3 Ml) Ud) 3 ml INH RQID PINKY Last Admin: 12/16/18 19:30 Dose: 3 ml Famotidine (Pepcid) 20 mg IVP Q12 PINKY Last Admin: 12/16/18 20:51 Dose: 20 mg Furosemide (Lasix) 20 mg IVP BID PINKY Last Admin: 12/16/18 16:17 Dose: 20 mg Aztreonam 1 gm/ Sodium (Chloride) 100 mls @ 100 mls/hr IVPB Q12 [facility]; Protocol Last Admin: 12/16/18 20:46 Dose: 100 mls/hr Linezolid (Zyvox 600mg/300ml D5w) 600 mg in 300 mls @ 300 mls/hr IVPB Q12 [facility]; Protocol Last Admin: 12/16/18 08:29 Dose: 300 mls/hr Micafungin Sodium 100 mg/ (Sodium Chloride) 100 mls @ 100 mls/hr IVPB DAILY [facility]; Protocol Last Admin: 12/16/18 08:04 Dose: 100 mls/hr Metoprolol Tartrate (Lopressor) 12.5 mg PO Q12 [facility] Last Admin: 12/16/18 08:28 Dose: 12.5 mg - Labs Labs: 12/16/18 04:20 12/16/18 04:20 PT 14.0 Seconds (9.8-13.1) H 12/15/18 20:49 INR 1.2 12/15/18 20:49 APTT 80.6 Seconds (25.6-37.1) H 12/16/18 04:20 - Constitutional Appears: Non-toxic, No Acute Distress - Head Exam Head Exam: ATRAUMATIC, NORMOCEPHALIC - Eye Exam Eye Exam: EOMI, Normal appearance, PERRL. absent: Scleral icterus - ENT Exam Additional comments: Moist mucous membrane - Respiratory Exam Respiratory Exam: Mild wheezes Additional comments: - Cardiovascular Exam Cardiovascular Exam: RRR, +S1, +S2 Additional comments: - GI/Abdominal Exam GI & Abdominal Exam: Soft. absent: Tenderness Additional comments: Obese - Extremities Exam Additional comments: BL LE PT/DP 2+ Assessment and Plan (1) CAP (community acquired pneumonia) Status: Acute (2) CHF exacerbation Status: Acute (3) NSTEMI (non-ST elevated myocardial infarction) Status: Acute (4) Morbid obesity Status: Chronic (5) COPD (chronic obstructive pulmonary disease) Status: Suspected - Assessment and Plan (Free Text) Plan: Continue Toprol 12.5 Q12 Continue Warfarin 7.5mg Daily INR 1.2 yesterday; results for today pending C/w heparin bridge Monitor for s/s bleeding Further reccs per Dr. Sutton <Isaak Sutton - Last Filed: 12/21/18 22:59> Objective - Vital Signs/Intake and Output Vital Signs (last 24 hours): Temp Pulse Resp BP Pulse Ox 97.8 F 100 H 20 90/43 L 94 L 12/21/18 19:14 12/21/18 21:54 12/21/18 19:14 12/21/18 21:54 12/21/18 19:14 Intake and Output: 12/21/18 12/22/18 18:59 06:59 Intake Total 240 Balance 240 - Labs Labs: 12/19/18 11:45 12/21/18 05:00 PT 35.4 Seconds (9.8-13.1) H D 12/21/18 10:09 INR 3.0 12/21/18 10:09 APTT 184.3 Seconds (25.6-37.1) H 12/18/18 04:30 Assessment and Plan (1) NSTEMI (non-ST elevated myocardial infarction) Status: Acute (2) CAP (community acquired pneumonia) Status: Acute (3) CHF exacerbation Status: Acute (4) Respiratory distress Status: Acute (5) Respiratory failure with hypoxia and hypercapnia Status: Acute (6) History of aortic valve replacement Status: Chronic (7) Morbid obesity Status: Chronic (8) COPD (chronic obstructive pulmonary disease) Status: Suspected Attending/Attestation - Attestation I have personally seen and examined this patient.: Yes I have fully participated in the care of the patient.: Yes I have reviewed all pertinent clinical information, including history, physical exam and plan: Yes
[2018-12-16 21:51] LABS: INR 1.4; PROTHROMBIN TIME 15.9 Seconds (9.8-13.1)
--- NOTE | 2018-12-16 22:41 | CP.PCM.PN ---
Subjective - Date & Time of Evaluation Date of Evaluation: 12/16/18 Time of Evaluation: 19:00 - Subjective Subjective: Patient tolerating diet well; no breathing complaints, down to 2L O2 via NC; got out of bed earlier but very weak legs; Objective - Vital Signs/Intake and Output Vital Signs (last 24 hours): Temp Pulse Resp BP Pulse Ox 98.0 F 87 14 124/61 97 12/16/18 16:00 12/16/18 21:15 12/16/18 20:00 12/16/18 21:15 12/16/18 20:00 Intake and Output: 12/16/18 12/17/18 18:59 06:59 Intake Total 960 104 Output Total 1250 Balance -290 104 - Medications Medications: Current Medications Acetylcysteine (Acetylcysteine 20%) 2 ml INH DAILY PINKY Last Admin: 12/16/18 08:00 Dose: 2 ml Albuterol Sulfate (Albuterol 0.083% Inhal Anastacia (2.5 Mg/3 Ml) Ud) 2.5 mg INH RQ4 PRN PRN Reason: Shortness of Breath Last Admin: 12/12/18 23:37 Dose: 2.5 mg Albuterol/Ipratropium (Duoneb 3 Mg/0.5 Mg (3 Ml) Ud) 3 ml INH RQID PINKY Last Admin: 12/16/18 19:30 Dose: 3 ml Famotidine (Pepcid) 20 mg IVP Q12 [facility]INK[facility] Last Admin: 12/16/18 20:51 Dose: 20 mg Furosemide (Lasix) 20 mg IVP BID [facility]INK[facility] Last Admin: 12/16/18 16:17 Dose: 20 mg Aztreonam 1 gm/ Sodium (Chloride) 100 mls @ 100 mls/hr IVPB Q12 [facility]; Protocol Last Admin: 12/16/18 20:46 Dose: 100 mls/hr Linezolid (Zyvox 600mg/300ml D5w) 600 mg in 300 mls @ 300 mls/hr IVPB Q12 [facility]; Protocol Last Admin: 12/16/18 21:45 Dose: 300 mls/hr Micafungin Sodium 100 mg/ (Sodium Chloride) 100 mls @ 100 mls/hr IVPB DAILY [facility]; Protocol Last Admin: 12/16/18 08:04 Dose: 100 mls/hr Metoprolol Tartrate (Lopressor) 12.5 mg PO Q12 [facility] Last Admin: 12/16/18 21:15 Dose: 12.5 mg - Labs Labs: 12/16/18 04:20 12/16/18 04:20 PT 15.9 Seconds (9.8-13.1) H 12/16/18 20:50 INR 1.4 12/16/18 20:50 APTT 80.6 Seconds (25.6-37.1) H 12/16/18 04:20 - Constitutional Appears: Non-toxic, No Acute Distress - Eye Exam Eye Exam: Normal appearance - Respiratory Exam Respiratory Exam: absent: Respiratory Distress Additional comments: minimal wheezes; - Cardiovascular Exam Cardiovascular Exam: RRR. absent: Gallop, Rubs - GI/Abdominal Exam GI & Abdominal Exam: Soft. absent: Distended, Tenderness - Extremities Exam Additional comments: some edema of dependent area; - Neurological Exam Neurological Exam: Alert, Awake - Psychiatric Exam Psychiatric exam: Normal Mood. absent: Agitated - Skin Skin Exam: Warm. absent: Cyanosis Assessment and Plan (1) Renal failure, acute Assessment & Plan: ATN with likely superimposed AIN; non-oliguric renal failure with renal function improving; stable volume status/FIO2 requirement and electrolytes; HD catheter removed yesterday; will not pursue steroids for now; -continue IV lasix 20 mg bid to aim for slightly net neg fluid balance; -avoid nephrotoxic agents (NSAIDS, PPI in her case); -may need to increase antibiotic dosing (aztreonam) as renal function improves; Status: Acute (2) Acute hypoxemic respiratory failure Status: Acute (3) Anemia Status: Acute (4) Hypotension Status: Acute (5) Sepsis Status: Acute
[2018-12-17] MEDS: Heparin 25,000units in D5W 25,000 UNITS/250 ML BAG IV SCH ×2 (03:45→21:57)
[2018-12-17 05:03] LABS: BASO # 0.1 K/uL (0.0-0.2); EOS # 0.5 K/uL (0.0-0.7); EOS % 5.9 % (0.0-4.0); HEMOGLOBIN 9.6 g/dL (12.0-16.0); LYMPH # 1.7 K/uL (1.0-4.3); LYMPH % 21.4 % (20.0-40.0); MEAN CORPUSCULAR HEMOGLOBIN 31.5 pg (27.0-31.0); MEAN CORPUSCULAR HGB CONC 33.2 g/dL (33.0-37.0); MEAN PLATELET VOLUME 7.2 fl (7.2-11.7); MONO # 0.6 K/uL (0.0-0.8); MONO % 7.8 % (0.0-10.0); NEUT # 5.1 K/uL (1.8-7.0); NEUT % 63.9 % (50.0-75.0); RBC 3.05 Mil/uL (3.80-5.20); RED CELL DISTRIBUTION WIDTH 16.7 % (11.5-14.5)
[2018-12-17 05:08] LABS: INR 1.6; PROTHROMBIN TIME 18.1 Seconds (9.8-13.1)
[2018-12-17 05:21] LABS: ALB/GLOB RATIO 0.7 (1.0-2.1); ALBUMIN 3.1 g/dL (3.5-5.0); CALCIUM 9.2 mg/dL (8.4-10.2)
[2018-12-17] MEDS: Albuterol-Ipratrop 3 mg / 0.5 (3 ml) UD INH SCH ×4 (08:15→18:59)
[2018-12-17] MEDS: Acetylcysteine 20% Inhal Soln (4ml) INH SCH ×2 (08:15→08:59)
[2018-12-17 08:39] LABS: PARTIAL THROMBOPLASTIN TIME 134.4 Seconds (25.6-37.1)
--- NOTE | 2018-12-17 08:42 | CP.PCM.PN ---
Subjective - Date & Time of Evaluation Date of Evaluation: 12/17/18 Time of Evaluation: 08:40 - Subjective Subjective: Seen on morning rounds in the ICU. Lying in bed, supine, appears comfortable at rest. Presently receiving aerosol therapy via nebulizer with mask hand held below her chin. Claims to have occasional cough, but no sputum. Denies shortness of breath at rest. Vital signs remain stable. SpO2 98%. Afebrile. No chest x-ray since the , will request one for today. Today's labs were reviewed. Hgb stable, no leukocytosis, renal function appears stable. Good urine output every day now. Had some physical therapy yesterday. No dependant edema, no cyanosis, extremities are warm to touch. Neck is supple, trachea is midline. Large ecchymosis over anterior chest wall slowly reabsorbing. No subcutaneous emphysema palpated. Breath sounds are diminished equally in both lungs. Dry rales (few) are heard in the lower lobes bilaterally. No audible wheezes or bronchial breath sounds. from a pulmonary standpoint she has recovered nicely from her influenza/pneumonia. Seems to have some degree of COPD which appears stable, needs PFT as outpatient. For the present time, continue DuoNeb QID and PRN albuterol. Discontinue acetylcysteine via nebulaizer. Maintain nasal canula oxygen at level to maintain SpO2 92-95% Objective - Vital Signs/Intake and Output Vital Signs (last 24 hours): Temp Pulse Resp BP Pulse Ox 98.1 F 82 20 130/62 96 12/17/18 08:20 12/17/18 08:20 12/17/18 08:20 12/17/18 08:20 12/17/18 08:20 Intake and Output: 12/16/18 12/17/18 23:59 11:59 Intake Total 1184 318 Output Total 650 800 Balance 534 -482 - Medications Medications: Current Medications Acetylcysteine (Acetylcysteine 20%) 2 ml INH DAILY [facility]INK[facility] Last Admin: 12/17/18 08:15 Dose: 2 ml Albuterol Sulfate (Albuterol 0.083% Inhal Anastacia (2.5 Mg/3 Ml) Ud) 2.5 mg INH RQ4 PRN PRN Reason: Shortness of Breath Last Admin: 12/12/18 23:37 Dose: 2.5 mg Albuterol/Ipratropium (Duoneb 3 Mg/0.5 Mg (3 Ml) Ud) 3 ml INH RQID [facility]INK[facility] Last Admin: 12/17/18 08:15 Dose: 3 ml Famotidine (Pepcid) 20 mg IVP Q12 [facility] Last Admin: 12/16/18 20:51 Dose: 20 mg Furosemide (Lasix) 20 mg IVP BID [facility] Last Admin: 12/16/18 16:17 Dose: 20 mg Aztreonam 1 gm/ Sodium (Chloride) 100 mls @ 100 mls/hr IVPB Q12 [facility]; Protocol Last Admin: 12/16/18 20:46 Dose: 100 mls/hr Linezolid (Zyvox 600mg/300ml D5w) 600 mg in 300 mls @ 300 mls/hr IVPB Q12 [facility]; Protocol Last Admin: 12/16/18 21:45 Dose: 300 mls/hr Micafungin Sodium 100 mg/ (Sodium Chloride) 100 mls @ 100 mls/hr IVPB DAILY [facility]; Protocol Last Admin: 12/16/18 08:04 Dose: 100 mls/hr Heparin Sodium/Dextrose (Heparin 25,000 Units/250ml In D5w) 25,000 units in 250 mls @ 20 mls/hr IV .[id number] [facility]; Protocol Last Titration: 12/17/18 05:30 Dose: 0 mls/hr Metoprolol Tartrate (Lopressor) 12.5 mg PO Q12 [facility] Last Admin: 12/16/18 21:15 Dose: 12.5 mg - Labs Labs: 12/17/18 04:35 12/17/18 04:35 PT 18.1 Seconds (9.8-13.1) H 12/17/18 04:35 INR 1.6 12/17/18 04:35 APTT 134.4 Seconds (25.6-37.1) H 12/17/18 04:35 Assessment and Plan (1) Respiratory failure with hypoxia and hypercapnia Status: Acute (2) Influenza A Status: Resolved (3) Pneumonia and influenza Status: Acute (4) Morbid obesity Status: Chronic (5) COPD (chronic obstructive pulmonary disease) Status: Suspected
[2018-12-17] MEDS: Micafungin 100 MG in Sodium Chloride 0.9% 100 ML IVPB SCH (08:43)
[2018-12-17] MEDS: Aztreonam 1 GM in Sodium Chloride 0.9% 100 ML IVPB SCH ×2 (08:43→20:09)
[2018-12-17] MEDS: Linezolid 600 mg in D5W 300 ml 600 MG/300 ML BAG IVPB SCH ×2 (08:44→22:04)
--- NOTE | 2018-12-17 09:30 | RAD ---
Date of service: 12/17/2018 HISTORY: pneumonia COMPARISON: Chest 12/14/2018. FINDINGS: Again noted in situ right sided PICC line with tip in the SVC LUNGS: Pulmonary venous congestive changes with bilateral lower lobe alveolar-type infiltrates and bilateral effusions. PLEURA: As above. No pneumothorax apparent. CARDIOVASCULAR: Mild aortic atherosclerotic calcification present. Cardiac silhouette unchanged sternotomy wires OSSEOUS STRUCTURES: No significant abnormalities. VISUALIZED UPPER ABDOMEN: Normal. OTHER FINDINGS: None. IMPRESSION: Pulmonary venous congestive changes with bilateral lower lobe alveolar-type infiltrates and bilateral effusions.
--- NOTE | 2018-12-17 11:24 | CP.CCUPN ---
CCU Subjective - Physician Review Subjective (Free Text): Extubated over a week ago, neuromental status remains intact and well, in a moderate mood, states did not sleep well overnight. Underwent loading with warfarin yesterday as day #3. Urine output recorded as 2300ml over the last 12H, on low dose IV Lasix. No fever spikes last 5 days! SBP improved and variable from 90s to 120s. HR 90s sinus. SPo2 91% on RA as she doesnt keep NC in place. ROS: No other pertinent negs or positives on 10+ system review PMSFH: All other Nursing and physician documentation reviewed to date; no new pertinent info noted relevant to current medical problems. EXAM- HEENT: no icterus, no gaze preference NECK: No JVD visible given short neck and overall obesity, supple, carotids equal upstroke bilat/no bruit. Resolving underlying ecchymoses and hematoma noted; no increase in size or extent from previous descriptions. CHEST: resolving upper chest ecchymoses noted extending form R shoulder across upper chest to left side; decreased BS at the bases, especially R base; no wheezes audible bilaterally. HEART: regular, distant, S1S2, no rubs or murmurs noted ABD: soft and obese, nontender, no guarding, no organomegaly, BS hypoactive. EXT: trace leg edema, no calf tenderness or palpable cords, distal pulses in tact and symmetrical. RUEE PICC (done yesterday) NEURO: moves and exhibits + tone in all extremities. SKIN: no rashes, warm and dry LABS: WBC= 8.0 HGB= 9.6 PLTs= 276K PTT 134 INR = 1.6 Na= 141 K= 4.2 CL= 103 HCO3= 26 BUN/Cr= 66/2.2 BS= 106 IMPRESSION / MAJOR PROBLEMS NOW: 1. Acute hypercarbic resp failure 2 COPD Exacerbation /Bilat pneumonia, NSTEMI with Acute Pulm Edema 2. Influenza Viral resp infection, r/o superimposed bilateral bacterial PNA 3. GI bleed (r/o stress gastritis versus other colitis disorder) and diffuse upper chest and neck ecchymoses (from previous R subclavian and R IJ vein venipuncture attempts during TLC placement) from warfarin coagulopathy. 4. SEDA, r/o ATN, AIN 5. s /p AVR, on AC with heparin drip 6. Morbid obesity PLAN: 1. Another loading dose of Warfarin today, check PT/INR in AM. 2. Stable for telemetry bed. 3. ZYvox/ Micafungin/ Aztreo as per ID. 4. Continue optimization to improve tolerance as goal for Acute Rehab therapy. 12/17/18 11:24
--- NOTE | 2018-12-17 12:17 | CP.PCM.PN ---
Subjective - Date & Time of Evaluation Date of Evaluation: 12/17/18 Time of Evaluation: 15:02 - Subjective Subjective: Slowly improving. Started on warfarin as soon the PT is therapeutic will dc heparin drip. Patient with severe acute debility will need acute rehabilitation. Objective - Vital Signs/Intake and Output Vital Signs (last 24 hours): Temp Pulse Resp BP Pulse Ox 98.1 F 86 17 95/27 L 91 L 12/17/18 08:20 12/17/18 10:00 12/17/18 10:00 12/17/18 10:00 12/17/18 10:00 Intake and Output: 12/17/18 12/17/18 11:59 23:59 Intake Total 818 Output Total 800 Balance 18 - Medications Medications: Current Medications Albuterol Sulfate (Albuterol 0.083% Inhal Anastacia (2.5 Mg/3 Ml) Ud) 2.5 mg INH RQ4 PRN PRN Reason: Shortness of Breath Last Admin: 12/12/18 23:37 Dose: 2.5 mg Albuterol/Ipratropium (Duoneb 3 Mg/0.5 Mg (3 Ml) Ud) 3 ml INH RQID [facility] Last Admin: 12/17/18 11:40 Dose: 3 ml Famotidine (Pepcid) 20 mg IVP Q12 [facility] Last Admin: 12/17/18 08:58 Dose: 20 mg Furosemide (Lasix) 20 mg IVP BID [facility] Last Admin: 12/17/18 08:50 Dose: 20 mg Aztreonam 1 gm/ Sodium (Chloride) 100 mls @ 100 mls/hr IVPB Q12 [facility]; Protocol Last Admin: 12/17/18 08:43 Dose: 100 mls/hr Linezolid (Zyvox 600mg/300ml D5w) 600 mg in 300 mls @ 300 mls/hr IVPB Q12 [facility]; Protocol Last Admin: 12/17/18 08:44 Dose: 300 mls/hr Micafungin Sodium 100 mg/ (Sodium Chloride) 100 mls @ 100 mls/hr IVPB DAILY [facility]; Protocol Last Admin: 12/17/18 08:43 Dose: 100 mls/hr Heparin Sodium/Dextrose (Heparin 25,000 Units/250ml In D5w) 25,000 units in 250 mls @ 20 mls/hr IV .[id number] [facility]; Protocol Last Titration: 12/17/18 05:30 Dose: 0 mls/hr Metoprolol Tartrate (Lopressor) 12.5 mg PO Q12 [facility] Last Admin: 12/17/18 08:51 Dose: 12.5 mg Warfarin Sodium (Coumadin) 7.5 mg PO ONCE ONE; Protocol Stop: 12/17/18 20:01 - Labs Labs: 12/17/18 04:35 12/17/18 04:35 PT 18.1 Seconds (9.8-13.1) H 12/17/18 04:35 INR 1.6 12/17/18 04:35 APTT 34.2 Seconds (25.6-37.1) 12/17/18 08:40 - Constitutional Appears: Chronically Ill - Head Exam Head Exam: ATRAUMATIC, NORMAL INSPECTION, NORMOCEPHALIC - Eye Exam Eye Exam: Normal appearance - ENT Exam ENT Exam: Mucous Membranes Moist - Neck Exam Neck Exam: Full ROM - Respiratory Exam Respiratory Exam: Decreased Breath Sounds, Clear to Ausculation Bilateral - Cardiovascular Exam Cardiovascular Exam: REGULAR RHYTHM, +S1, +S2 - GI/Abdominal Exam GI & Abdominal Exam: Normal Bowel Sounds - Extremities Exam Extremities Exam: Full ROM - Neurological Exam Neurological Exam: Abnormal Gait, Alert, Awake - Psychiatric Exam Psychiatric exam: Flat Affect - Skin Skin Exam: Normal Color Assessment and Plan (1) CAP (community acquired pneumonia) Status: Acute (2) CHF exacerbation Status: Acute (3) DVT prophylaxis Status: Acute (4) History of aortic valve replacement Status: Chronic (5) Influenza A Status: Resolved (6) NSTEMI (non-ST elevated myocardial infarction) Status: Acute (7) Pneumonia and influenza Status: Acute (8) Respiratory distress Status: Acute (9) Respiratory failure with hypoxia and hypercapnia Status: Acute (10) Morbid obesity Status: Chronic (11) COPD (chronic obstructive pulmonary disease) Status: Suspected (12) Myocardial ischemia Status: Acute (13) Renal failure, acute Status: Acute (14) Hematoma Status: Acute (15) Sepsis Status: Acute
--- NOTE | 2018-12-17 17:41 | CP.PCM.PN ---
<Celestine Calhoun - Last Filed: 12/17/18 22:24> Subjective - Date & Time of Evaluation Date of Evaluation: 12/17/18 Time of Evaluation: 17:40 - Subjective Subjective: Celestine Calhoun DO PGY1 - Internal Medicine Technology Auditor - Cardiology Note for Dr. Sutton Patient was seen and examined at bedside this afternoon Patient seen and examined at bedside this evening - at bedside; no acute events reported overnight; Denies CP, SOB, Palpitations - tolerating PT well, reported she was walking. Objective - Vital Signs/Intake and Output Vital Signs (last 24 hours): Temp Pulse Resp BP Pulse Ox 98.0 F 85 17 139/60 94 L 12/17/18 16:00 12/17/18 16:00 12/17/18 16:00 12/17/18 16:00 12/17/18 16:00 Intake and Output: 12/17/18 12/17/18 06:59 18:59 Intake Total 822 500 Output Total 800 Balance 22 500 - Medications Medications: Current Medications Albuterol Sulfate (Albuterol 0.083% Inhal Anastacia (2.5 Mg/3 Ml) Ud) 2.5 mg INH RQ4 PRN PRN Reason: Shortness of Breath Last Admin: 12/12/18 23:37 Dose: 2.5 mg Albuterol/Ipratropium (Duoneb 3 Mg/0.5 Mg (3 Ml) Ud) 3 ml INH RQID [facility] Last Admin: 12/17/18 15:25 Dose: 3 ml Famotidine (Pepcid) 20 mg IVP Q12 [facility] Last Admin: 12/17/18 08:58 Dose: 20 mg Furosemide (Lasix) 20 mg IVP BID [facility] Last Admin: 12/17/18 08:50 Dose: 20 mg Aztreonam 1 gm/ Sodium (Chloride) 100 mls @ 100 mls/hr IVPB Q12 [facility]; Protocol Last Admin: 12/17/18 08:43 Dose: 100 mls/hr Linezolid (Zyvox 600mg/300ml D5w) 600 mg in 300 mls @ 300 mls/hr IVPB Q12 [facility]; Protocol Last Admin: 12/17/18 08:44 Dose: 300 mls/hr Micafungin Sodium 100 mg/ (Sodium Chloride) 100 mls @ 100 mls/hr IVPB DAILY [facility]; Protocol Last Admin: 12/17/18 08:43 Dose: 100 mls/hr Heparin Sodium/Dextrose (Heparin 25,000 Units/250ml In D5w) 25,000 units in 250 mls @ 20 mls/hr IV .[id number] [facility]; Protocol Last Titration: 12/17/18 05:30 Dose: 0 mls/hr Metoprolol Tartrate (Lopressor) 12.5 mg PO Q12 [facility] Last Admin: 12/17/18 08:51 Dose: 12.5 mg Warfarin Sodium (Coumadin) 7.5 mg PO ONCE ONE; Protocol Stop: 12/17/18 20:01 - Labs Labs: 12/17/18 04:35 12/17/18 04:35 PT 18.1 Seconds (9.8-13.1) H 12/17/18 04:35 INR 1.6 12/17/18 04:35 APTT 34.2 Seconds (25.6-37.1) 12/17/18 08:40 - Constitutional Appears: Non-toxic, No Acute Distress - Head Exam Head Exam: ATRAUMATIC, NORMOCEPHALIC - Eye Exam Eye Exam: EOMI, Normal appearance, PERRL. absent: Scleral icterus - ENT Exam Additional comments: Moist mucous membrane - Respiratory Exam Respiratory Exam: Mild wheezes Additional comments: - Cardiovascular Exam Cardiovascular Exam: RRR, +S1, +S2 Additional comments: - GI/Abdominal Exam GI & Abdominal Exam: Soft. absent: Tenderness Additional comments: Obese - Extremities Exam Additional comments: BL LE PT/DP 2+ Assessment and Plan (1) CAP (community acquired pneumonia) Status: Acute (2) CHF exacerbation Status: Acute (3) NSTEMI (non-ST elevated myocardial infarction) Status: Acute (4) Morbid obesity Status: Chronic (5) COPD (chronic obstructive pulmonary disease) Status: Suspected - Assessment and Plan (Free Text) Plan: Patient improving ; HD stable Aneurysm - Zestril 2.5 Daily Continue Toprol 12.5 Q12 Continue Warfarin 7.5mg Daily INR 1.6 C/w heparin bridge Monitor for s/s bleeding Further reccs per Dr. Sutton <Isaak Sutton - Last Filed: 12/21/18 22:59> Objective - Vital Signs/Intake and Output Vital Signs (last 24 hours): Temp Pulse Resp BP Pulse Ox 97.8 F 100 H 20 90/43 L 94 L 12/21/18 19:14 12/21/18 21:54 12/21/18 19:14 12/21/18 21:54 12/21/18 19:14 Intake and Output: 12/21/18 12/22/18 18:59 06:59 Intake Total 240 Balance 240 - Labs Labs: 12/19/18 11:45 12/21/18 05:00 PT 35.4 Seconds (9.8-13.1) H D 12/21/18 10:09 INR 3.0 12/21/18 10:09 APTT 184.3 Seconds (25.6-37.1) H 12/18/18 04:30 Assessment and Plan (1) NSTEMI (non-ST elevated myocardial infarction) Status: Acute (2) CAP (community acquired pneumonia) Status: Acute (3) CHF exacerbation Status: Acute (4) Respiratory distress Status: Acute (5) Respiratory failure with hypoxia and hypercapnia Status: Acute (6) History of aortic valve replacement Status: Chronic (7) Morbid obesity Status: Chronic (8) COPD (chronic obstructive pulmonary disease) Status: Suspected Attending/Attestation - Attestation I have personally seen and examined this patient.: Yes I have fully participated in the care of the patient.: Yes I have reviewed all pertinent clinical information, including history, physical exam and plan: Yes
--- NOTE | 2018-12-17 21:22 | CP.PCM.PN ---
Subjective - Date & Time of Evaluation Date of Evaluation: 12/16/18 Time of Evaluation: 17:00 - Subjective Subjective: More comfortable Objective - Vital Signs/Intake and Output Vital Signs (last 24 hours): Temp Pulse Resp BP Pulse Ox 98.2 F 95 H 21 128/87 94 L 12/17/18 20:00 12/17/18 20:00 12/17/18 20:00 12/17/18 20:00 12/17/18 20:00 Intake and Output: 12/17/18 12/18/18 18:59 06:59 Intake Total 500 204 Balance 500 204 - Medications Medications: Current Medications Albuterol Sulfate (Albuterol 0.083% Inhal Anastacia (2.5 Mg/3 Ml) Ud) 2.5 mg INH RQ4 PRN PRN Reason: Shortness of Breath Last Admin: 12/12/18 23:37 Dose: 2.5 mg Albuterol/Ipratropium (Duoneb 3 Mg/0.5 Mg (3 Ml) Ud) 3 ml INH RQID [facility] Last Admin: 12/17/18 18:59 Dose: 3 ml Famotidine (Pepcid) 20 mg IVP Q12 [facility] Last Admin: 12/17/18 20:16 Dose: 20 mg Furosemide (Lasix) 20 mg IVP BID [facility] Last Admin: 12/17/18 08:50 Dose: 20 mg Aztreonam 1 gm/ Sodium (Chloride) 100 mls @ 100 mls/hr IVPB Q12 [facility]; Protocol Last Admin: 12/17/18 20:09 Dose: 100 mls/hr Linezolid (Zyvox 600mg/300ml D5w) 600 mg in 300 mls @ 300 mls/hr IVPB Q12 [facility]; Protocol Last Admin: 12/17/18 08:44 Dose: 300 mls/hr Micafungin Sodium 100 mg/ (Sodium Chloride) 100 mls @ 100 mls/hr IVPB DAILY [facility]; Protocol Last Admin: 12/17/18 08:43 Dose: 100 mls/hr Heparin Sodium/Dextrose (Heparin 25,000 Units/250ml In D5w) 25,000 units in 250 mls @ 20 mls/hr IV .[id number] [facility]; Protocol Last Titration: 12/17/18 05:30 Dose: 0 mls/hr Lisinopril (Zestril) 2.5 mg PO DAILY [facility] Metoprolol Tartrate (Lopressor) 12.5 mg PO Q12 [facility] Last Admin: 12/17/18 20:08 Dose: 12.5 mg - Labs Labs: 12/17/18 04:35 12/17/18 04:35 PT 18.1 Seconds (9.8-13.1) H 12/17/18 04:35 INR 1.6 12/17/18 04:35 APTT 34.2 Seconds (25.6-37.1) 12/17/18 08:40 - Head Exam Head Exam: ATRAUMATIC - Eye Exam Eye Exam: Normal appearance - ENT Exam ENT Exam: Mucous Membranes Dry - Respiratory Exam Respiratory Exam: NORMAL BREATHING PATTERN - Cardiovascular Exam Cardiovascular Exam: +S1, +S2 - GI/Abdominal Exam GI & Abdominal Exam: Normal Bowel Sounds Assessment and Plan (1) Anemia Assessment & Plan: H/H improved anemia of CKD monitor for bleeding while on heparin Status: Acute (2) Coagulopathy Assessment & Plan: on heparin Status: Acute
--- NOTE | 2018-12-17 21:23 | CP.PCM.PN ---
Subjective - Date & Time of Evaluation Date of Evaluation: 12/17/18 Time of Evaluation: 12:00 - Subjective Subjective: Seen eating lunch, feeling better. Objective - Vital Signs/Intake and Output Vital Signs (last 24 hours): Temp Pulse Resp BP Pulse Ox 98.2 F 95 H 21 128/87 94 L 12/17/18 20:00 12/17/18 20:00 12/17/18 20:00 12/17/18 20:00 12/17/18 20:00 Intake and Output: 12/17/18 12/18/18 18:59 06:59 Intake Total 500 204 Balance 500 204 - Medications Medications: Current Medications Albuterol Sulfate (Albuterol 0.083% Inhal Anastacia (2.5 Mg/3 Ml) Ud) 2.5 mg INH RQ4 PRN PRN Reason: Shortness of Breath Last Admin: 12/12/18 23:37 Dose: 2.5 mg Albuterol/Ipratropium (Duoneb 3 Mg/0.5 Mg (3 Ml) Ud) 3 ml INH RQID [facility] Last Admin: 12/17/18 18:59 Dose: 3 ml Famotidine (Pepcid) 20 mg IVP Q12 [facility] Last Admin: 12/17/18 20:16 Dose: 20 mg Furosemide (Lasix) 20 mg IVP BID [facility] Last Admin: 12/17/18 08:50 Dose: 20 mg Aztreonam 1 gm/ Sodium (Chloride) 100 mls @ 100 mls/hr IVPB Q12 [facility]; Protocol Last Admin: 12/17/18 20:09 Dose: 100 mls/hr Linezolid (Zyvox 600mg/300ml D5w) 600 mg in 300 mls @ 300 mls/hr IVPB Q12 [facility]; Protocol Last Admin: 12/17/18 08:44 Dose: 300 mls/hr Micafungin Sodium 100 mg/ (Sodium Chloride) 100 mls @ 100 mls/hr IVPB DAILY [facility]; Protocol Last Admin: 12/17/18 08:43 Dose: 100 mls/hr Heparin Sodium/Dextrose (Heparin 25,000 Units/250ml In D5w) 25,000 units in 250 mls @ 20 mls/hr IV .[id number] [facility]; Protocol Last Titration: 12/17/18 05:30 Dose: 0 mls/hr Lisinopril (Zestril) 2.5 mg PO DAILY [facility] Metoprolol Tartrate (Lopressor) 12.5 mg PO Q12 [facility] Last Admin: 12/17/18 20:08 Dose: 12.5 mg - Labs Labs: 12/17/18 04:35 12/17/18 04:35 PT 18.1 Seconds (9.8-13.1) H 12/17/18 04:35 INR 1.6 12/17/18 04:35 APTT 34.2 Seconds (25.6-37.1) 12/17/18 08:40 - Head Exam Head Exam: ATRAUMATIC - Eye Exam Eye Exam: Normal appearance - ENT Exam ENT Exam: Mucous Membranes Dry - Respiratory Exam Respiratory Exam: Decreased Breath Sounds - Cardiovascular Exam Cardiovascular Exam: +S1, +S2 - GI/Abdominal Exam GI & Abdominal Exam: Normal Bowel Sounds Assessment and Plan (1) Anemia Assessment & Plan: H/H improved anemia of CKD Status: Acute (2) Coagulopathy Assessment & Plan: anticoagulation Status: Acute
--- NOTE | 2018-12-17 22:36 | CP.PCM.PN ---
Subjective - Date & Time of Evaluation Date of Evaluation: 12/17/18 Time of Evaluation: 15:00 - Subjective Subjective: Patient tolerating diet; reports breathing well; urinating well; Objective - Vital Signs/Intake and Output Vital Signs (last 24 hours): Temp Pulse Resp BP Pulse Ox 98.2 F 95 H 21 128/87 94 L 12/17/18 20:00 12/17/18 20:00 12/17/18 20:00 12/17/18 20:00 12/17/18 20:00 Intake and Output: 12/17/18 12/18/18 18:59 06:59 Intake Total 500 454 Balance 500 454 - Medications Medications: Current Medications Albuterol Sulfate (Albuterol 0.083% Inhal Anastacia (2.5 Mg/3 Ml) Ud) 2.5 mg INH RQ4 PRN PRN Reason: Shortness of Breath Last Admin: 12/12/18 23:37 Dose: 2.5 mg Albuterol/Ipratropium (Duoneb 3 Mg/0.5 Mg (3 Ml) Ud) 3 ml INH RQID [facility] Last Admin: 12/17/18 18:59 Dose: 3 ml Famotidine (Pepcid) 20 mg IVP Q12 [facility] Last Admin: 12/17/18 20:16 Dose: 20 mg Furosemide (Lasix) 20 mg IVP BID [facility] Last Admin: 12/17/18 08:50 Dose: 20 mg Aztreonam 1 gm/ Sodium (Chloride) 100 mls @ 100 mls/hr IVPB Q12 [facility]; Protocol Last Admin: 12/17/18 20:09 Dose: 100 mls/hr Linezolid (Zyvox 600mg/300ml D5w) 600 mg in 300 mls @ 300 mls/hr IVPB Q12 [facility]; Protocol Last Admin: 12/17/18 22:04 Dose: 300 mls/hr Micafungin Sodium 100 mg/ (Sodium Chloride) 100 mls @ 100 mls/hr IVPB DAILY [facility]; Protocol Last Admin: 12/17/18 08:43 Dose: 100 mls/hr Heparin Sodium/Dextrose (Heparin 25,000 Units/250ml In D5w) 25,000 units in 250 mls @ 20 mls/hr IV .[id number] [facility]; Protocol Last Admin: 12/17/18 21:57 Dose: 20 mls/hr Lisinopril (Zestril) 2.5 mg PO DAILY [facility] Metoprolol Tartrate (Lopressor) 12.5 mg PO Q12 [facility] Last Admin: 12/17/18 20:08 Dose: 12.5 mg - Labs Labs: 12/17/18 04:35 12/17/18 04:35 PT 18.1 Seconds (9.8-13.1) H 12/17/18 04:35 INR 1.6 12/17/18 04:35 APTT 34.2 Seconds (25.6-37.1) 12/17/18 08:40 - Constitutional Appears: Non-toxic, No Acute Distress - Eye Exam Eye Exam: Normal appearance - Respiratory Exam Respiratory Exam: Clear to Ausculation Bilateral. absent: Respiratory Distress - Cardiovascular Exam Cardiovascular Exam: RRR. absent: Gallop, Rubs - GI/Abdominal Exam GI & Abdominal Exam: Soft. absent: Distended, Tenderness - Extremities Exam Additional comments: no leg edema, minimal edema of dependent area - Neurological Exam Neurological Exam: Alert, Awake - Psychiatric Exam Psychiatric exam: Normal Affect. absent: Agitated - Skin Skin Exam: Warm. absent: Cyanosis Assessment and Plan (1) Renal failure, acute Assessment & Plan: ATN with likely superimposed AIN from PPI; non-oliguric renal failure, continues to improve; stable volume status/FIO2 requirement (now down to 2L O2 via NC), stable lytes; -continue IV lasix 20 mg bid to maintain slightly negative fluid balance; -avoid nephrotoxic agents (PPI in her case, NSAIDS, phosphate enema); -continue to monitor I/O, daily weights; Status: Acute (2) Acute hypoxemic respiratory failure Status: Acute (3) Anemia Status: Acute (4) Hypotension Status: Acute (5) Sepsis Status: Acute
[2018-12-18 05:30] LABS: BASO # 0.1 K/uL (0.0-0.2); BASO % 0.8 % (0.0-2.0); EOS # 0.5 K/uL (0.0-0.7); EOS % 7.1 % (0.0-4.0); HEMOGLOBIN 9.7 g/dL (12.0-16.0); LYMPH # 1.6 K/uL (1.0-4.3); LYMPH % 23.6 % (20.0-40.0); MEAN CELL VOLUME 95.8 fl (81.0-99.0); MEAN CORPUSCULAR HGB CONC 33.4 g/dL (33.0-37.0); MEAN PLATELET VOLUME 7.5 fl (7.2-11.7); MONO # 0.5 K/uL (0.0-0.8); MONO % 7.8 % (0.0-10.0); NEUT # 4.2 K/uL (1.8-7.0); NEUT % 60.7 % (50.0-75.0); NRBC % 0.1 % (0.0-0.0); RBC 3.04 Mil/uL (3.80-5.20); RED CELL DISTRIBUTION WIDTH 17.1 % (11.5-14.5); WHITE BLOOD COUNT 6.9 K/uL (4.8-10.8)
[2018-12-18 05:53] LABS: INR 2.1; PROTHROMBIN TIME 23.8 Seconds (9.8-13.1)
[2018-12-18 06:02] LABS: ALB/GLOB RATIO 0.7 (1.0-2.1); CALCIUM 9.2 mg/dL (8.4-10.2)
[2018-12-18 06:15] LABS: PARTIAL THROMBOPLASTIN TIME 184.3 Seconds (25.6-37.1)
[2018-12-18] MEDS: Albuterol-Ipratrop 3 mg / 0.5 (3 ml) UD INH SCH ×4 (07:21→19:27)
[2018-12-18] MEDS: Micafungin 100 MG in Sodium Chloride 0.9% 100 ML IVPB SCH (09:19)
[2018-12-18] MEDS: Aztreonam 1 GM in Sodium Chloride 0.9% 100 ML IVPB SCH ×2 (09:31→20:40)
[2018-12-18] MEDS: Linezolid 600 mg in D5W 300 ml 600 MG/300 ML BAG IVPB SCH ×2 (09:33→20:41)
--- NOTE | 2018-12-18 12:18 | CP.PCM.PN ---
Subjective - Date & Time of Evaluation Date of Evaluation: 12/18/18 Time of Evaluation: 12:17 - Subjective Subjective: General condition improving well Objective - Vital Signs/Intake and Output Vital Signs (last 24 hours): Temp Pulse Resp BP Pulse Ox 98.9 F 85 15 123/53 L 100 12/18/18 08:00 12/18/18 10:00 12/18/18 10:00 12/18/18 10:00 12/18/18 10:00 Intake and Output: 12/18/18 12/18/18 11:59 23:59 Intake Total 564 Output Total 900 Balance -336 - Medications Medications: Current Medications Albuterol Sulfate (Albuterol 0.083% Inhal Anastacia (2.5 Mg/3 Ml) Ud) 2.5 mg INH RQ4 PRN PRN Reason: Shortness of Breath Last Admin: 12/12/18 23:37 Dose: 2.5 mg Albuterol/Ipratropium (Duoneb 3 Mg/0.5 Mg (3 Ml) Ud) 3 ml INH RQID [facility] Last Admin: 12/18/18 11:38 Dose: Not Given Famotidine (Pepcid) 20 mg IVP Q12 [facility] Last Admin: 12/18/18 09:38 Dose: 20 mg Furosemide (Lasix) 20 mg IVP BID [facility] Last Admin: 12/18/18 09:38 Dose: 20 mg Aztreonam 1 gm/ Sodium (Chloride) 100 mls @ 100 mls/hr IVPB Q12 [facility]; Protocol Last Admin: 12/18/18 09:31 Dose: 100 mls/hr Linezolid (Zyvox 600mg/300ml D5w) 600 mg in 300 mls @ 300 mls/hr IVPB Q12 [facility]; Protocol Last Admin: 12/18/18 09:33 Dose: 300 mls/hr Micafungin Sodium 100 mg/ (Sodium Chloride) 100 mls @ 100 mls/hr IVPB DAILY [facility]; Protocol Last Admin: 12/18/18 09:19 Dose: 100 mls/hr Lisinopril (Zestril) 2.5 mg PO DAILY [facility] Metoprolol Tartrate (Lopressor) 12.5 mg PO Q12 [facility] Last Admin: 12/18/18 09:36 Dose: 12.5 mg - Labs Labs: 12/18/18 04:30 02/01/19 04:30 PT 23.8 Seconds (9.8-13.1) H D 12/18/18 04:30 INR 2.1 12/18/18 04:30 APTT 184.3 Seconds (25.6-37.1) H 12/18/18 04:30 - Constitutional Appears: Chronically Ill - Head Exam Head Exam: ATRAUMATIC, NORMAL INSPECTION, NORMOCEPHALIC - Eye Exam Eye Exam: Normal appearance - Neck Exam Neck Exam: Full ROM - Respiratory Exam Respiratory Exam: Decreased Breath Sounds - Cardiovascular Exam Cardiovascular Exam: REGULAR RHYTHM, +S1, +S2 - GI/Abdominal Exam GI & Abdominal Exam: Normal Bowel Sounds - Neurological Exam Neurological Exam: Alert, Awake, CN II-XII Intact - Psychiatric Exam Psychiatric exam: Flat Affect - Skin Skin Exam: Pallor Assessment and Plan (1) CAP (community acquired pneumonia) Status: Acute (2) CHF exacerbation Status: Acute (3) DVT prophylaxis Status: Acute (4) History of aortic valve replacement Status: Chronic (5) Influenza A Status: Resolved (6) NSTEMI (non-ST elevated myocardial infarction) Status: Acute (7) Pneumonia and influenza Status: Acute (8) Respiratory distress Status: Acute (9) Respiratory failure with hypoxia and hypercapnia Status: Acute (10) Morbid obesity Status: Chronic (11) COPD (chronic obstructive pulmonary disease) Status: Suspected (12) Myocardial ischemia Status: Acute (13) Renal failure, acute Status: Acute (14) Hematoma Status: Acute (15) Sepsis Status: Acute - Assessment and Plan (Free Text) Plan: Continue present rx.
--- NOTE | 2018-12-18 12:32 | CP.PCM.PN ---
Subjective - Date & Time of Evaluation Date of Evaluation: 12/18/18 Time of Evaluation: 09:00 - Subjective Subjective: improving day IV antibiotics RX renewed Objective - Vital Signs/Intake and Output Vital Signs (last 24 hours): Temp Pulse Resp BP Pulse Ox 97.2 F L 88 23 116/63 96 12/18/18 12:00 12/18/18 12:00 12/18/18 12:00 12/18/18 12:00 12/18/18 12:00 Intake and Output: 12/18/18 12/18/18 06:59 18:59 Intake Total 818 500 Output Total 900 Balance -82 500 - Medications Medications: Current Medications Albuterol Sulfate (Albuterol 0.083% Inhal Anastacia (2.5 Mg/3 Ml) Ud) 2.5 mg INH RQ4 PRN PRN Reason: Shortness of Breath Last Admin: 12/12/18 23:37 Dose: 2.5 mg Albuterol/Ipratropium (Duoneb 3 Mg/0.5 Mg (3 Ml) Ud) 3 ml INH RQID [facility] Last Admin: 12/18/18 11:38 Dose: Not Given Famotidine (Pepcid) 20 mg IVP Q12 [facility] Last Admin: 12/18/18 09:38 Dose: 20 mg Furosemide (Lasix) 20 mg IVP BID [facility] Last Admin: 12/18/18 09:38 Dose: 20 mg Aztreonam 1 gm/ Sodium (Chloride) 100 mls @ 100 mls/hr IVPB Q12 [facility]; Protocol Last Admin: 12/18/18 09:31 Dose: 100 mls/hr Linezolid (Zyvox 600mg/300ml D5w) 600 mg in 300 mls @ 300 mls/hr IVPB Q12 [facility]; Protocol Last Admin: 12/18/18 09:33 Dose: 300 mls/hr Micafungin Sodium 100 mg/ (Sodium Chloride) 100 mls @ 100 mls/hr IVPB DAILY [facility]; Protocol Last Admin: 12/18/18 09:19 Dose: 100 mls/hr Lisinopril (Zestril) 2.5 mg PO DAILY [facility] Metoprolol Tartrate (Lopressor) 12.5 mg PO Q12 [facility] Last Admin: 12/18/18 09:36 Dose: 12.5 mg - Labs Labs: 12/18/18 04:30 12/18/18 04:30 PT 23.8 Seconds (9.8-13.1) H D 12/18/18 04:30 INR 2.1 12/18/18 04:30 APTT 184.3 Seconds (25.6-37.1) H 12/18/18 04:30 - Constitutional Appears: Non-toxic, Chronically Ill - Head Exam Head Exam: NORMOCEPHALIC - Eye Exam Eye Exam: absent: Scleral icterus - ENT Exam ENT Exam: Mucous Membranes Dry - Neck Exam Neck Exam: absent: Lymphadenopathy - Respiratory Exam Respiratory Exam: Decreased Breath Sounds - Cardiovascular Exam Cardiovascular Exam: REGULAR RHYTHM - GI/Abdominal Exam GI & Abdominal Exam: Distended, Soft - Rectal Exam Rectal Exam: Deferred - Exam Exam: NORMAL INSPECTION Assessment and Plan (1) Acute hypoxemic respiratory failure Status: Acute (2) Anemia Status: Acute (3) CAP (community acquired pneumonia) Status: Acute (4) CHF exacerbation Status: Acute (5) Coagulopathy Status: Acute (6) Hematoma Status: Acute (7) Hypotension Status: Acute (8) Influenza A Status: Resolved (9) Leukocytosis Status: Acute (10) NSTEMI (non-ST elevated myocardial infarction) Status: Acute (11) Pneumonia and influenza Status: Acute (12) Renal failure, acute Status: Acute (13) Sepsis Status: Acute (14) History of aortic valve replacement Status: Chronic (15) COPD (chronic obstructive pulmonary disease) Status: Suspected (16) Myocardial ischemia Status: Acute - Assessment and Plan (Free Text) Assessment: cont IV antibiotics for HCAP
--- NOTE | 2018-12-18 13:43 | CP.PCM.PN ---
Subjective - Date & Time of Evaluation Date of Evaluation: 12/18/18 Time of Evaluation: 13:43 - Subjective Subjective: Seen on rounds in ICU. Awake and lying supine in bed. In no distress, cooperative, answers questions appropriately. Maintains adequate oxygenation using nasal canula. Was able to participate with physical therapy, get OOB. Labs reviewed, gradual improvement in renal function. Obese female lying supine without any distress. Minimal dependant edema, no cyanosis, continued gradual resolving ecchymosis. Short neck, cannot assess JVD, supple with midline trachea. No subcut emphysema. Breath sounds are slightly distant, but present equally in both lungs. Dry rales are present in the lower lobes posteriorly of both lungs. No audible wheezes or bronchial breath sounds. Heart sounds are distant, regular rhythm. Good recovery from pneumonia associated with influenza. Recovering renal function. Stable hemoglobin without signs of active bleeding. General debilitation, doing well with physical therapy. Continue current aerosol therapy. Objective - Vital Signs/Intake and Output Vital Signs (last 24 hours): Temp Pulse Resp BP Pulse Ox 97.2 F L 88 23 116/63 96 12/18/18 12:00 12/18/18 12:00 12/18/18 12:00 12/18/18 12:00 12/18/18 12:00 Intake and Output: 12/18/18 12/18/18 11:59 23:59 Intake Total 564 Output Total 900 Balance -336 - Medications Medications: Current Medications Albuterol Sulfate (Albuterol 0.083% Inhal Anastacia (2.5 Mg/3 Ml) Ud) 2.5 mg INH RQ4 PRN PRN Reason: Shortness of Breath Last Admin: 12/12/18 23:37 Dose: 2.5 mg Albuterol/Ipratropium (Duoneb 3 Mg/0.5 Mg (3 Ml) Ud) 3 ml INH RQID [facility] Last Admin: 12/18/18 11:38 Dose: Not Given Famotidine (Pepcid) 20 mg IVP Q12 [facility] Last Admin: 12/18/18 09:38 Dose: 20 mg Furosemide (Lasix) 20 mg IVP BID [facility] Last Admin: 12/18/18 09:38 Dose: 20 mg Aztreonam 1 gm/ Sodium (Chloride) 100 mls @ 100 mls/hr IVPB Q12 [facility]; Protocol Last Admin: 12/18/18 09:31 Dose: 100 mls/hr Linezolid (Zyvox 600mg/300ml D5w) 600 mg in 300 mls @ 300 mls/hr IVPB Q12 [facility]; Protocol Last Admin: 12/18/18 09:33 Dose: 300 mls/hr Micafungin Sodium 100 mg/ (Sodium Chloride) 100 mls @ 100 mls/hr IVPB DAILY [facility]; Protocol Last Admin: 12/18/18 09:19 Dose: 100 mls/hr Lisinopril (Zestril) 2.5 mg PO DAILY [facility] Metoprolol Tartrate (Lopressor) 12.5 mg PO Q12 [facility] Last Admin: 12/18/18 09:36 Dose: 12.5 mg - Labs Labs: 12/18/18 04:30 12/18/18 04:30 PT 23.8 Seconds (9.8-13.1) H D 12/18/18 04:30 INR 2.1 12/18/18 04:30 APTT 184.3 Seconds (25.6-37.1) H 12/18/18 04:30 Assessment and Plan (1) Respiratory failure with hypoxia and hypercapnia Status: Acute (2) Influenza A Status: Resolved (3) Pneumonia and influenza Status: Acute (4) Morbid obesity Status: Chronic (5) COPD (chronic obstructive pulmonary disease) Status: Suspected
--- NOTE | 2018-12-18 14:45 | CP.CCUPN ---
CCU Subjective - Physician Review Subjective (Free Text): Extubated 11 days ago, continues to improve, awake and alert, no distress / breathing pattern unlabored. Urine output recorded as 900ml over the last 12H, on low dose IV Lasix. No fever spikes last 5 days! SBP improved and remain variable from 90s to 120s. HR 80s sinus. SPo2 95% on RA as she doesnt keep NC in place. ROS: No other pertinent negs or positives on 10+ system review PMSFH: All other Nursing and physician documentation reviewed to date; no new pertinent info noted relevant to current medical problems. EXAM- HEENT: no icterus, no gaze preference NECK: No JVD visible given short neck and overall obesity, supple, carotids equal upstroke bilat/no bruit. Resolving underlying ecchymoses and hematoma noted; no increase in size or extent from previous descriptions. CHEST: resolving upper chest ecchymoses noted extending form R shoulder across upper chest to left side; decreased BS at the bases, especially R base; no wheezes audible bilaterally. HEART: regular, distant, S1S2, no rubs or murmurs noted ABD: soft and obese, nontender, no guarding, no organomegaly, BS hypoactive. EXT: trace leg edema, no calf tenderness or palpable cords, distal pulses intact and symmetrical. RUEE PICC (done yesterday) NEURO: moves and exhibits + tone in all extremities. SKIN: no rashes, warm and dry LABS: WBC= 6.9 HGB= 9.7 PLTs= 203K INR = 2.1 Na= 142 K= 4.3 CL= 103 HCO3= 28 BUN/Cr= 60/2.0 BS= 99 IMPRESSION / MAJOR PROBLEMS NOW: 1. Acute hypercarbic resp failure 2 COPD Exacerbation /Bilat pneumonia, NSTEMI with Acute Pulm Edema 2. Influenza Viral resp infection, r/o superimposed bilateral bacterial PNA 3. GI bleed (r/o stress gastritis versus other colitis disorder) and diffuse upper chest and neck ecchymoses (from previous R subclavian and R IJ vein venipuncture attempts during TLC placement) from warfarin coagulopathy. 4. SEDA, r/o ATN, AIN 5. s /p AVR, on AC 6. Morbid obesity PLAN: 1. Maintenance dose of Warfarin today, check PT/INR in AM. IV Heparin stopped. Goal for prosthetic Aortic Valve, INR 2.0-3.0. 2. Address ASA and Statin resumption with Cardio. 3. Zyvox/ Micafungin/ Aztreo as per ID. 4. Stable for telemetry bed. Continue optimization to improve tolerance as goal for Acute Rehab therapy.
--- NOTE | 2018-12-18 19:08 | CP.PCM.PN ---
<Celestine Calhoun - Last Filed: 12/18/18 19:07> Subjective - Date & Time of Evaluation Date of Evaluation: 12/18/18 Time of Evaluation: 19:07 - Subjective Subjective: Celestine Calhoun DO PGY1 - Internal Medicine Emergency Dispatch Operator - Cardiology Note for Dr. Sutton Patient was seen and examined at bedside this morning, no acute events reported overnight. Patient denies any chest pain, shortness of breath, palpitations. Objective - Vital Signs/Intake and Output Vital Signs (last 24 hours): Temp Pulse Resp BP Pulse Ox 98.5 F 92 H 13 144/59 L 99 12/18/18 16:00 12/18/18 17:08 12/18/18 16:00 12/18/18 17:08 12/18/18 17:08 Intake and Output: 12/18/18 12/19/18 18:59 06:59 Intake Total 500 Output Total 1100 Balance -600 - Medications Medications: Current Medications Albuterol Sulfate (Albuterol 0.083% Inhal Anastacia (2.5 Mg/3 Ml) Ud) 2.5 mg INH RQ4 PRN PRN Reason: Shortness of Breath Last Admin: 12/12/18 23:37 Dose: 2.5 mg Albuterol/Ipratropium (Duoneb 3 Mg/0.5 Mg (3 Ml) Ud) 3 ml INH RQID [facility] Last Admin: 12/18/18 16:10 Dose: 3 ml Famotidine (Pepcid) 20 mg IVP Q12 [facility] Last Admin: 12/18/18 09:38 Dose: 20 mg Furosemide (Lasix) 20 mg IVP BID [facility] Last Admin: 12/18/18 16:08 Dose: 20 mg Aztreonam 1 gm/ Sodium (Chloride) 100 mls @ 100 mls/hr IVPB Q12 [facility]; Protocol Last Admin: 12/18/18 09:31 Dose: 100 mls/hr Linezolid (Zyvox 600mg/300ml D5w) 600 mg in 300 mls @ 300 mls/hr IVPB Q12 [facility]; Protocol Last Admin: 12/18/18 09:33 Dose: 300 mls/hr Micafungin Sodium 100 mg/ (Sodium Chloride) 100 mls @ 100 mls/hr IVPB DAILY [facility]; Protocol Last Admin: 12/18/18 09:19 Dose: 100 mls/hr Lisinopril (Zestril) 2.5 mg PO DAILY [facility] Last Admin: 12/18/18 16:09 Dose: 2.5 mg Metoprolol Tartrate (Lopressor) 12.5 mg PO Q12 [facility] Last Admin: 12/18/18 09:36 Dose: 12.5 mg - Labs Labs: 12/18/18 04:30 12/18/18 04:30 PT 23.8 Seconds (9.8-13.1) H D 12/18/18 04:30 INR 2.1 12/18/18 04:30 APTT 184.3 Seconds (25.6-37.1) H 12/18/18 04:30 - Constitutional Appears: Non-toxic, No Acute Distress - Head Exam Head Exam: ATRAUMATIC, NORMOCEPHALIC - Eye Exam Eye Exam: EOMI, Normal appearance, PERRL. absent: Scleral icterus - ENT Exam Additional comments: Moist mucous membrane - Respiratory Exam Respiratory Exam: Mild wheezes Additional comments: - Cardiovascular Exam Cardiovascular Exam: RRR, +S1, +S2 Additional comments: - GI/Abdominal Exam GI & Abdominal Exam: Soft. absent: Tenderness Additional comments: Obese - Extremities Exam Additional comments: BL LE PT/DP 2+ Assessment and Plan (1) CAP (community acquired pneumonia) Status: Acute (2) CHF exacerbation Status: Acute (3) NSTEMI (non-ST elevated myocardial infarction) Status: Acute (4) Morbid obesity Status: Chronic (5) COPD (chronic obstructive pulmonary disease) Status: Suspected - Assessment and Plan (Free Text) Plan: Patient improving ; HD stable Aneurysm seen on [place]OLFGANG; C/w Zestril 2.5 Daily Continue Toprol 12.5 Q12 Continue Warfarin 7.5mg Daily INR 2.1 - Goal INR 2.5-3 C/w heparin bridge Monitor for s/s bleeding Further reccs per Dr. Sutton <Isaak Sutton - Last Filed: 12/21/18 06:55> Objective - Vital Signs/Intake and Output Vital Signs (last 24 hours): Temp Pulse Resp BP Pulse Ox 99.5 F 97 H 20 109/69 98 12/21/18 04:44 12/21/18 04:44 12/21/18 04:44 12/21/18 04:44 12/21/18 04:44 Intake and Output: 12/20/18 12/21/18 18:59 06:59 Intake Total 1500 Balance 1500 - Medications Medications: Current Medications Albuterol Sulfate (Albuterol 0.083% Inhal Anastacia (2.5 Mg/3 Ml) Ud) 2.5 mg INH RQ4 PRN PRN Reason: Shortness of Breath Last Admin: 12/12/18 23:37 Dose: 2.5 mg Albuterol/Ipratropium (Duoneb 3 Mg/0.5 Mg (3 Ml) Ud) 3 ml INH RQID [facility] Last Admin: 12/20/18 19:27 Dose: 3 ml Famotidine (Pepcid) 20 mg PO BID [facility] Last Admin: 12/20/18 16:25 Dose: 20 mg Furosemide (Lasix) 20 mg PO DAILY [facility] Last Admin: 12/20/18 08:41 Dose: 20 mg Micafungin Sodium 100 mg/ (Sodium Chloride) 100 mls @ 100 mls/hr IVPB DAILY [facility]; Protocol Last Admin: 12/20/18 08:43 Dose: 100 mls/hr Lisinopril (Zestril) 2.5 mg PO DAILY [facility] Last Admin: 12/20/18 08:42 Dose: 2.5 mg Metoprolol Tartrate (Lopressor) 12.5 mg PO Q12 [facility] Last Admin: 12/20/18 21:25 Dose: Not Given - Labs Labs: 12/19/18 11:45 12/21/18 05:00 PT 29.9 Seconds (9.8-13.1) H 12/20/18 05:16 INR 2.6 12/20/18 05:16 APTT 184.3 Seconds (25.6-37.1) H 12/18/18 04:30 Assessment and Plan (1) NSTEMI (non-ST elevated myocardial infarction) Status: Acute (2) CAP (community acquired pneumonia) Status: Acute (3) CHF exacerbation Status: Acute (4) Respiratory distress Status: Acute (5) Respiratory failure with hypoxia and hypercapnia Status: Acute (6) History of aortic valve replacement Status: Chronic (7) Morbid obesity Status: Chronic (8) COPD (chronic obstructive pulmonary disease) Status: Suspected Attending/Attestation - Attestation I have personally seen and examined this patient.: Yes I have fully participated in the care of the patient.: Yes I have reviewed all pertinent clinical information, including history, physical exam and plan: Yes
--- NOTE | 2018-12-18 21:33 | CP.PCM.PN ---
Subjective - Date & Time of Evaluation Date of Evaluation: 12/18/18 Time of Evaluation: 11:00 - Subjective Subjective: No complaints, feeling better. Objective - Vital Signs/Intake and Output Vital Signs (last 24 hours): Temp Pulse Resp BP Pulse Ox 98.6 F 134 H 20 112/83 95 12/18/18 19:09 12/18/18 21:08 12/18/18 19:09 12/18/18 21:08 12/18/18 19:09 Intake and Output: 12/18/18 12/19/18 18:59 06:59 Intake Total 500 Output Total 1100 Balance -600 - Medications Medications: Current Medications Albuterol Sulfate (Albuterol 0.083% Inhal Anastacia (2.5 Mg/3 Ml) Ud) 2.5 mg INH RQ4 PRN PRN Reason: Shortness of Breath Last Admin: 12/12/18 23:37 Dose: 2.5 mg Albuterol/Ipratropium (Duoneb 3 Mg/0.5 Mg (3 Ml) Ud) 3 ml INH RQID [facility] Last Admin: 12/18/18 19:27 Dose: 3 ml Famotidine (Pepcid) 20 mg IVP Q12 [facility] Last Admin: 12/18/18 21:02 Dose: 20 mg Furosemide (Lasix) 20 mg IVP BID [facility] Last Admin: 12/18/18 16:08 Dose: 20 mg Aztreonam 1 gm/ Sodium (Chloride) 100 mls @ 100 mls/hr IVPB Q12 [facility]; Protocol Last Admin: 12/18/18 20:40 Dose: 100 mls/hr Linezolid (Zyvox 600mg/300ml D5w) 600 mg in 300 mls @ 300 mls/hr IVPB Q12 [facility]; Protocol Last Admin: 12/18/18 20:41 Dose: 300 mls/hr Micafungin Sodium 100 mg/ (Sodium Chloride) 100 mls @ 100 mls/hr IVPB DAILY [facility]; Protocol Last Admin: 12/18/18 09:19 Dose: 100 mls/hr Lisinopril (Zestril) 2.5 mg PO DAILY [facility] Last Admin: 12/18/18 16:09 Dose: 2.5 mg Metoprolol Tartrate (Lopressor) 12.5 mg PO Q12 [facility] Last Admin: 12/18/18 21:08 Dose: 12.5 mg - Labs Labs: 12/18/18 04:30 12/18/18 04:30 PT 23.8 Seconds (9.8-13.1) H D 12/18/18 04:30 INR 2.1 12/18/18 04:30 APTT 184.3 Seconds (25.6-37.1) H 12/18/18 04:30 - Head Exam Head Exam: ATRAUMATIC - Eye Exam Eye Exam: Normal appearance - ENT Exam ENT Exam: Mucous Membranes Dry - Respiratory Exam Respiratory Exam: Decreased Breath Sounds - Cardiovascular Exam Cardiovascular Exam: +S1, +S2 - GI/Abdominal Exam GI & Abdominal Exam: Normal Bowel Sounds Assessment and Plan (1) Anemia Assessment & Plan: anemia of CKD prior GI blood loss Status: Acute (2) Coagulopathy Assessment & Plan: anticoagulation Status: Acute
--- NOTE | 2018-12-18 22:39 | CP.PCM.PN ---
Subjective - Date & Time of Evaluation Date of Evaluation: 12/18/18 Time of Evaluation: 19:00 - Subjective Subjective: Patient reports feeling well; took off nasal cannula O2 and reports breathing well; was out of bed earlier today; tolerating diet; Objective - Vital Signs/Intake and Output Vital Signs (last 24 hours): Temp Pulse Resp BP Pulse Ox 98.6 F 134 H 20 112/83 95 12/18/18 19:09 12/18/18 21:08 12/18/18 19:09 12/18/18 21:08 12/18/18 19:09 Intake and Output: 12/18/18 12/19/18 18:59 06:59 Intake Total 500 Output Total 1100 Balance -600 - Medications Medications: Current Medications Albuterol Sulfate (Albuterol 0.083% Inhal Anastacia (2.5 Mg/3 Ml) Ud) 2.5 mg INH RQ4 PRN PRN Reason: Shortness of Breath Last Admin: 12/12/18 23:37 Dose: 2.5 mg Albuterol/Ipratropium (Duoneb 3 Mg/0.5 Mg (3 Ml) Ud) 3 ml INH RQID [facility] Last Admin: 12/18/18 19:27 Dose: 3 ml Famotidine (Pepcid) 20 mg IVP Q12 [facility] Last Admin: 12/18/18 21:02 Dose: 20 mg Furosemide (Lasix) 20 mg IVP DAILY [facility] Aztreonam 1 gm/ Sodium (Chloride) 100 mls @ 100 mls/hr IVPB Q12 [facility]; Protocol Last Admin: 12/18/18 20:40 Dose: 100 mls/hr Linezolid (Zyvox 600mg/300ml D5w) 600 mg in 300 mls @ 300 mls/hr IVPB Q12 [facility]; Protocol Last Admin: 12/18/18 20:41 Dose: 300 mls/hr Micafungin Sodium 100 mg/ (Sodium Chloride) 100 mls @ 100 mls/hr IVPB DAILY [facility]; Protocol Last Admin: 12/18/18 09:19 Dose: 100 mls/hr Lisinopril (Zestril) 2.5 mg PO DAILY [facility] Last Admin: 12/18/18 16:09 Dose: 2.5 mg Metoprolol Tartrate (Lopressor) 12.5 mg PO Q12 [facility] Last Admin: 12/18/18 21:08 Dose: 12.5 mg - Labs Labs: 12/18/18 04:30 12/18/18 04:30 PT 23.8 Seconds (9.8-13.1) H D 12/18/18 04:30 INR 2.1 12/18/18 04:30 APTT 184.3 Seconds (25.6-37.1) H 12/18/18 04:30 - Constitutional Appears: Non-toxic, No Acute Distress - Eye Exam Eye Exam: Normal appearance - Respiratory Exam Respiratory Exam: Clear to Ausculation Bilateral. absent: Respiratory Distress - Cardiovascular Exam Cardiovascular Exam: RRR. absent: Gallop, Rubs - GI/Abdominal Exam GI & Abdominal Exam: Soft. absent: Distended, Tenderness - Extremities Exam Additional comments: no edema of legs or dependent area; - Neurological Exam Neurological Exam: Alert, Awake - Psychiatric Exam Psychiatric exam: Normal Affect, Normal Mood. absent: Agitated - Skin Skin Exam: Warm. absent: Cyanosis Assessment and Plan (1) Renal failure, acute Assessment & Plan: ATN with superimposed AIN; non-oliguric renal failure, recovering slowly; stable volume and electrolyte status; -will decrease IV lasix 20 mg to once daily; -avoid nephrotoxic agents (PPI in her case, NSAIDS, phosphate enema, etc); -can d/c hickey catheter; -maintain MAP > 65-70; Status: Acute (2) Acute hypoxemic respiratory failure Status: Acute (3) Anemia Status: Acute (4) Hypotension Status: Acute (5) Sepsis Status: Acute
[2018-12-19] MEDS: Albuterol-Ipratrop 3 mg / 0.5 (3 ml) UD INH SCH ×4 (07:34→19:34)
[2018-12-19] MEDS: Aztreonam 1 GM in Sodium Chloride 0.9% 100 ML IVPB SCH ×2 (08:42→21:39)
[2018-12-19] MEDS: Micafungin 100 MG in Sodium Chloride 0.9% 100 ML IVPB SCH (08:43)
[2018-12-19] MEDS: Linezolid 600 mg in D5W 300 ml 600 MG/300 ML BAG IVPB SCH ×2 (08:43→21:37)
--- NOTE | 2018-12-19 11:41 | CP.PCM.PN ---
Subjective - Date & Time of Evaluation Date of Evaluation: 12/19/18 Time of Evaluation: 11:41 - Subjective Subjective: Seen on telemetry, appears comfortable. Vital signs have been stable. SpO2 90% on room air at rest. Awake and alert, cooperative with exam. Heart rate 90 BPM regular. Remains afebrile. No dependant edema, no cyanosis. Ecchymosis resolving nicely. Neck is supple and trachea midline. No palpable lymphadenopathy. All extremities are warm to touch. Breath sounds are diminished bilaterally, equally. Occasional dry rales in dependant areas of both lower lobes. No audible wheezing, no bonchial breath sounds. Heart sounds are distant, regular. PT/INR pending. Coumadin pending the above. Continue aerosol therapy. Chest x-ray. Nasal canula O2 @ 2LPM. Objective - Vital Signs/Intake and Output Vital Signs (last 24 hours): Temp Pulse Resp BP Pulse Ox 97.7 F 93 H 18 100/52 L 93 L 12/19/18 08:00 12/19/18 08:39 12/19/18 08:00 12/19/18 08:39 12/19/18 08:00 Intake and Output: 12/18/18 12/19/18 23:59 11:59 Intake Total 400 100 Output Total 1100 0 Balance -700 100 - Medications Medications: Current Medications Albuterol Sulfate (Albuterol 0.083% Inhal Anastacia (2.5 Mg/3 Ml) Ud) 2.5 mg INH RQ4 PRN PRN Reason: Shortness of Breath Last Admin: 12/12/18 23:37 Dose: 2.5 mg Albuterol/Ipratropium (Duoneb 3 Mg/0.5 Mg (3 Ml) Ud) 3 ml INH RQID [facility] Last Admin: 12/19/18 07:34 Dose: 3 ml Famotidine (Pepcid) 20 mg IVP Q12 [facility] Last Admin: 12/18/18 21:02 Dose: 20 mg Furosemide (Lasix) 20 mg IVP DAILY [facility] Last Admin: 12/19/18 08:38 Dose: 20 mg Aztreonam 1 gm/ Sodium (Chloride) 100 mls @ 100 mls/hr IVPB Q12 [facility]; Protocol Last Admin: 12/19/18 08:42 Dose: 100 mls/hr Linezolid (Zyvox 600mg/300ml D5w) 600 mg in 300 mls @ 300 mls/hr IVPB Q12 [facility]; Protocol Last Admin: 12/19/18 08:43 Dose: 300 mls/hr Micafungin Sodium 100 mg/ (Sodium Chloride) 100 mls @ 100 mls/hr IVPB DAILY [facility]; Protocol Last Admin: 12/19/18 08:43 Dose: 100 mls/hr Lisinopril (Zestril) 2.5 mg PO DAILY [facility] Last Admin: 12/19/18 08:39 Dose: 2.5 mg Metoprolol Tartrate (Lopressor) 12.5 mg PO Q12 [facility] Last Admin: 12/19/18 08:38 Dose: 12.5 mg - Labs Labs: 12/18/18 04:30 12/18/18 04:30 PT 23.8 Seconds (9.8-13.1) H D 12/18/18 04:30 INR 2.1 12/18/18 04:30 APTT 184.3 Seconds (25.6-37.1) H 12/18/18 04:30 Assessment and Plan (1) Respiratory failure with hypoxia and hypercapnia Status: Acute (2) Influenza A Status: Resolved (3) Pneumonia and influenza Status: Acute (4) Morbid obesity Status: Chronic (5) COPD (chronic obstructive pulmonary disease) Status: Suspected
[2018-12-19 12:04] LABS: BASO % 0.7 % (0.0-2.0); EOS # 0.4 K/uL (0.0-0.7); EOS % 5.7 % (0.0-4.0); HEMOGLOBIN 9.7 g/dL (12.0-16.0); LYMPH # 1.2 K/uL (1.0-4.3); LYMPH % 18.9 % (20.0-40.0); MEAN CELL VOLUME 95.9 fl (81.0-99.0); MEAN CORPUSCULAR HEMOGLOBIN 31.2 pg (27.0-31.0); MEAN CORPUSCULAR HGB CONC 32.6 g/dL (33.0-37.0); MEAN PLATELET VOLUME 7.2 fl (7.2-11.7); MONO # 0.5 K/uL (0.0-0.8); MONO % 8.6 % (0.0-10.0); NEUT # 4.1 K/uL (1.8-7.0); NEUT % 66.1 % (50.0-75.0); NRBC % 0.1 % (0.0-0.0); RBC 3.11 Mil/uL (3.80-5.20); RED CELL DISTRIBUTION WIDTH 17.4 % (11.5-14.5); WHITE BLOOD COUNT 6.2 K/uL (4.8-10.8)
[2018-12-19 12:05] LABS: INR 2.3; PROTHROMBIN TIME 26.4 Seconds (9.8-13.1)
[2018-12-19 12:47] LABS: CALCIUM 9.4 mg/dL (8.4-10.2)
--- NOTE | 2018-12-19 16:52 | CP.PCM.PN ---
Subjective - Date & Time of Evaluation Date of Evaluation: 12/19/18 Time of Evaluation: 18:10 - Subjective Subjective: Improving well no new c/o still severely debilitated Objective - Vital Signs/Intake and Output Vital Signs (last 24 hours): Temp Pulse Resp BP Pulse Ox 97.9 F 82 16 97/62 L 97 12/19/18 16:13 12/19/18 16:13 12/19/18 16:13 12/19/18 16:13 12/19/18 16:13 Intake and Output: 12/19/18 12/19/18 11:59 23:59 Intake Total 100 Output Total 0 Balance 100 - Medications Medications: Current Medications Albuterol Sulfate (Albuterol 0.083% Inhal Anastacia (2.5 Mg/3 Ml) Ud) 2.5 mg INH RQ4 PRN PRN Reason: Shortness of Breath Last Admin: 12/12/18 23:37 Dose: 2.5 mg Albuterol/Ipratropium (Duoneb 3 Mg/0.5 Mg (3 Ml) Ud) 3 ml INH RQID [facility] Last Admin: 12/19/18 15:56 Dose: 3 ml Famotidine (Pepcid) 20 mg PO BID [facility] Last Admin: 12/19/18 16:17 Dose: 20 mg Furosemide (Lasix) 20 mg IVP DAILY [facility] Last Admin: 12/19/18 08:38 Dose: 20 mg Aztreonam 1 gm/ Sodium (Chloride) 100 mls @ 100 mls/hr IVPB Q12 [facility]; Protocol Last Admin: 12/19/18 08:42 Dose: 100 mls/hr Linezolid (Zyvox 600mg/300ml D5w) 600 mg in 300 mls @ 300 mls/hr IVPB Q12 [facility]; Protocol Last Admin: 12/19/18 08:43 Dose: 300 mls/hr Micafungin Sodium 100 mg/ (Sodium Chloride) 100 mls @ 100 mls/hr IVPB DAILY [facility]; Protocol Last Admin: 12/19/18 08:43 Dose: 100 mls/hr Lisinopril (Zestril) 2.5 mg PO DAILY [facility] Last Admin: 12/19/18 08:39 Dose: 2.5 mg Metoprolol Tartrate (Lopressor) 12.5 mg PO Q12 [facility] Last Admin: 12/19/18 08:38 Dose: 12.5 mg Warfarin Sodium (Coumadin) 7.5 mg PO QD5 [facility]; Protocol Stop: 12/19/18 17:01 Last Admin: 12/19/18 16:16 Dose: 7.5 mg - Labs Labs: 12/19/18 11:45 12/19/18 11:45 PT 26.4 Seconds (9.8-13.1) H 12/19/18 11:45 INR 2.3 12/19/18 11:45 APTT 184.3 Seconds (25.6-37.1) H 12/18/18 04:30 - Constitutional Appears: Chronically Ill - Head Exam Head Exam: ATRAUMATIC, NORMAL INSPECTION, NORMOCEPHALIC - ENT Exam ENT Exam: Mucous Membranes Dry - Respiratory Exam Respiratory Exam: Decreased Breath Sounds - Cardiovascular Exam Cardiovascular Exam: REGULAR RHYTHM, +S1, +S2 - GI/Abdominal Exam GI & Abdominal Exam: Normal Bowel Sounds - Extremities Exam Extremities Exam: Normal Inspection - Neurological Exam Neurological Exam: Abnormal Gait, Alert, Awake - Psychiatric Exam Psychiatric exam: Flat Affect - Skin Skin Exam: Pallor Assessment and Plan (1) CAP (community acquired pneumonia) Status: Acute (2) CHF exacerbation Status: Acute (3) DVT prophylaxis Status: Acute (4) History of aortic valve replacement Status: Chronic (5) Influenza A Status: Resolved (6) NSTEMI (non-ST elevated myocardial infarction) Status: Acute (7) Pneumonia and influenza Status: Acute (8) Respiratory distress Status: Acute (9) Respiratory failure with hypoxia and hypercapnia Status: Acute (10) Morbid obesity Status: Chronic (11) COPD (chronic obstructive pulmonary disease) Status: Suspected (12) Myocardial ischemia Status: Acute (13) Renal failure, acute Status: Acute (14) Hematoma Status: Acute (15) Sepsis Status: Acute
[2018-12-20 06:45] LABS: INR 2.6; PROTHROMBIN TIME 29.9 Seconds (9.8-13.1)
[2018-12-20] MEDS: Albuterol-Ipratrop 3 mg / 0.5 (3 ml) UD INH SCH ×4 (07:45→19:27)
--- NOTE | 2018-12-20 08:09 | CP.PCM.PN ---
Subjective - Date & Time of Evaluation Date of Evaluation: 12/19/18 Time of Evaluation: 20:00 - Subjective Subjective: Patient breathing well on room air; tolerating diet; not getting out of bed today; Objective - Vital Signs/Intake and Output Vital Signs (last 24 hours): Temp Pulse Resp BP Pulse Ox 97.7 F 90 20 98/64 L 98 12/20/18 04:44 12/20/18 04:44 12/20/18 04:44 12/20/18 04:44 12/20/18 04:44 Intake and Output: 12/20/18 12/20/18 06:59 18:59 Intake Total 650 Output Total 600 Balance 50 - Medications Medications: Current Medications Albuterol Sulfate (Albuterol 0.083% Inhal Anastacia (2.5 Mg/3 Ml) Ud) 2.5 mg INH RQ4 PRN PRN Reason: Shortness of Breath Last Admin: 12/12/18 23:37 Dose: 2.5 mg Albuterol/Ipratropium (Duoneb 3 Mg/0.5 Mg (3 Ml) Ud) 3 ml INH RQID [facility] Last Admin: 12/20/18 07:45 Dose: Not Given Famotidine (Pepcid) 20 mg PO BID [facility] Last Admin: 12/19/18 16:17 Dose: 20 mg Furosemide (Lasix) 20 mg PO DAILY [facility] Aztreonam 1 gm/ Sodium (Chloride) 100 mls @ 100 mls/hr IVPB Q12 [facility]; Protocol Last Admin: 12/19/18 21:39 Dose: 100 mls/hr Linezolid (Zyvox 600mg/300ml D5w) 600 mg in 300 mls @ 300 mls/hr IVPB Q12 [facility]; Protocol Last Admin: 12/19/18 21:37 Dose: 300 mls/hr Micafungin Sodium 100 mg/ (Sodium Chloride) 100 mls @ 100 mls/hr IVPB DAILY [facility] ; Protocol Last Admin: 12/19/18 08:43 Dose: 100 mls/hr Lisinopril (Zestril) 2.5 mg PO DAILY [facility] Last Admin: 12/19/18 08:39 Dose: 2.5 mg Metoprolol Tartrate (Lopressor) 12.5 mg PO Q12 [facility] Last Admin: 12/19/18 21:41 Dose: Not Given - Labs Labs: 12/19/18 11:45 12/19/18 11:45 PT 29.9 Seconds (9.8-13.1) H 12/20/18 05:16 INR 2.6 12/20/18 05:16 APTT 184.3 Seconds (25.6-37.1) H 12/18/18 04:30 - Constitutional Appears: Non-toxic, No Acute Distress - Eye Exam Eye Exam: Normal appearance - Respiratory Exam Respiratory Exam: Clear to Ausculation Bilateral. absent: Respiratory Distress - Cardiovascular Exam Cardiovascular Exam: RRR, +S1, +S2 - GI/Abdominal Exam GI & Abdominal Exam: Soft. absent: Distended, Tenderness - Extremities Exam Additional comments: no leg edema; - Neurological Exam Neurological Exam: Alert, Awake - Psychiatric Exam Psychiatric exam: Normal Mood. absent: Agitated - Skin Skin Exam: Warm. absent: Cyanosis Assessment and Plan (1) Renal failure, acute Assessment & Plan: ATN with superimposed AIN from PPI; non-oliguric renal failure, resolving; stable volume and electrolyte status, no additional oxygen requirement; low/normal BP noted after starting low dose lisinopril; -decreasing diuretics further, changing IV lasix to PO lasix 20 mg once daily; -avoid nephrotoxic agents (PPI, NSAIDS, etc); -keep MAP > 65-70; -should d/c hickey, use purewick instead; Status: Acute (2) Acute hypoxemic respiratory failure Status: Acute (3) Anemia Status: Acute (4) Hypotension Status: Acute (5) Sepsis Status: Acute
[2018-12-20] MEDS: Aztreonam 1 GM in Sodium Chloride 0.9% 100 ML IVPB SCH (08:41)
[2018-12-20] MEDS: Micafungin 100 MG in Sodium Chloride 0.9% 100 ML IVPB SCH (08:43)
[2018-12-20] MEDS: Linezolid 600 mg in D5W 300 ml 600 MG/300 ML BAG IVPB SCH (08:43)
--- NOTE | 2018-12-20 14:10 | CP.PCM.PN ---
Subjective - Date & Time of Evaluation Date of Evaluation: 12/20/18 Time of Evaluation: 14:09 - Subjective Subjective: Improving well, For acute rehab. Objective - Vital Signs/Intake and Output Vital Signs (last 24 hours): Temp Pulse Resp BP Pulse Ox 97.4 F L 87 18 102/55 L 93 L 12/20/18 08:00 12/20/18 09:00 12/20/18 08:00 12/20/18 08:44 12/20/18 08:00 Intake and Output: 12/20/18 12/20/18 11:59 23:59 Intake Total 650 Output Total 600 Balance 50 - Medications Medications: Current Medications Albuterol Sulfate (Albuterol 0.083% Inhal Anastacia (2.5 Mg/3 Ml) Ud) 2.5 mg INH RQ4 PRN PRN Reason: Shortness of Breath Last Admin: 12/12/18 23:37 Dose: 2.5 mg Albuterol/Ipratropium (Duoneb 3 Mg/0.5 Mg (3 Ml) Ud) 3 ml INH RQID [facility] Last Admin: 12/20/18 11:38 Dose: 3 ml Famotidine (Pepcid) 20 mg PO BID [facility] Last Admin: 12/20/18 08:42 Dose: 20 mg Furosemide (Lasix) 20 mg PO DAILY [facility] Last Admin: 12/20/18 08:41 Dose: 20 mg Micafungin Sodium 100 mg/ (Sodium Chloride) 100 mls @ 100 mls/hr IVPB DAILY [facility]; Protocol Last Admin: 12/20/18 08:43 Dose: 100 mls/hr Lisinopril (Zestril) 2.5 mg PO DAILY [facility] Last Admin: 12/20/18 08:42 Dose: 2.5 mg Metoprolol Tartrate (Lopressor) 12.5 mg PO Q12 [facility] Last Admin: 12/20/18 08:44 Dose: Not Given Warfarin Sodium (Coumadin) 7.5 mg PO QD5 [facility]; Protocol Stop: 12/20/18 17:01 - Labs Labs: 12/19/18 11:45 12/19/18 11:45 PT 29.9 Seconds (9.8-13.1) H 12/20/18 05:16 INR 2.6 12/20/18 05:16 APTT 184.3 Seconds (25.6-37.1) H 12/18/18 04:30 - Constitutional Appears: Chronically Ill - Head Exam Head Exam: ATRAUMATIC, NORMAL INSPECTION, NORMOCEPHALIC - Eye Exam Eye Exam: Normal appearance - Neck Exam Neck Exam: Full ROM - Respiratory Exam Respiratory Exam: Decreased Breath Sounds - Cardiovascular Exam Cardiovascular Exam: REGULAR RHYTHM, +S1, +S2 - GI/Abdominal Exam GI & Abdominal Exam: Normal Bowel Sounds - Extremities Exam Extremities Exam: Normal Inspection - Neurological Exam Neurological Exam: Abnormal Gait, Alert, Awake, CN II-XII Intact - Psychiatric Exam Psychiatric exam: Normal Affect - Skin Skin Exam: Normal Color Assessment and Plan (1) CAP (community acquired pneumonia) Status: Acute (2) CHF exacerbation Status: Acute (3) DVT prophylaxis Status: Acute (4) History of aortic valve replacement Status: Chronic (5) Influenza A Status: Resolved (6) NSTEMI (non-ST elevated myocardial infarction) Status: Acute (7) Pneumonia and influenza Status: Acute (8) Respiratory distress Status: Acute (9) Respiratory failure with hypoxia and hypercapnia Status: Acute (10) Morbid obesity Status: Chronic (11) COPD (chronic obstructive pulmonary disease) Status: Suspected (12) Myocardial ischemia Status: Acute (13) Renal failure, acute Status: Acute (14) Hematoma Status: Acute (15) Sepsis Status: Acute
--- NOTE | 2018-12-20 14:23 | CP.PCM.PN ---
Subjective - Date & Time of Evaluation Date of Evaluation: 12/20/18 Time of Evaluation: 09:00 - Subjective Subjective: afebrile alert NAD IV antibiotics held 14 days completed cont mycamine for now Objective - Vital Signs/Intake and Output Vital Signs (last 24 hours): Temp Pulse Resp BP Pulse Ox 97.4 F L 87 18 102/55 L 93 L 12/20/18 08:00 12/20/18 09:00 12/20/18 08:00 12/20/18 08:44 12/20/18 08:00 Intake and Output: 12/20/18 12/20/18 06:59 18:59 Intake Total 650 Output Total 600 Balance 50 - Medications Medications: Current Medications Albuterol Sulfate (Albuterol 0.083% Inhal Anastacia (2.5 Mg/3 Ml) Ud) 2.5 mg INH RQ4 PRN PRN Reason: Shortness of Breath Last Admin: 12/12/18 23:37 Dose: 2.5 mg Albuterol/Ipratropium (Duoneb 3 Mg/0.5 Mg (3 Ml) Ud) 3 ml INH RQID [facility] Last Admin: 12/20/18 11:38 Dose: 3 ml Famotidine (Pepcid) 20 mg PO BID [facility] Last Admin: 12/20/18 08:42 Dose: 20 mg Furosemide (Lasix) 20 mg PO DAILY [facility] Last Admin: 12/20/18 08:41 Dose: 20 mg Micafungin Sodium 100 mg/ (Sodium Chloride) 100 mls @ 100 mls/hr IVPB DAILY [facility]; Protocol Last Admin: 12/20/18 08:43 Dose: 100 mls/hr Lisinopril (Zestril) 2.5 mg PO DAILY [facility] Last Admin: 12/20/18 08:42 Dose: 2.5 mg Metoprolol Tartrate (Lopressor) 12.5 mg PO Q12 [facility] Last Admin: 12/20/18 08:44 Dose: Not Given Warfarin Sodium (Coumadin) 7.5 mg PO QD5 [facility]; Protocol Stop: 12/20/18 17:01 - Labs Labs: 12/19/18 11:45 12/19/18 11:45 PT 29.9 Seconds (9.8-13.1) H 12/20/18 05:16 INR 2.6 12/20/18 05:16 APTT 184.3 Seconds (25.6-37.1) H 12/18/18 04:30 - Constitutional Appears: Non-toxic, Chronically Ill - Head Exam Head Exam: NORMOCEPHALIC - Eye Exam Eye Exam: absent: Scleral icterus - ENT Exam ENT Exam: Mucous Membranes Dry - Neck Exam Neck Exam: absent: Lymphadenopathy - Respiratory Exam Respiratory Exam: Decreased Breath Sounds - Cardiovascular Exam Cardiovascular Exam: REGULAR RHYTHM - GI/Abdominal Exam GI & Abdominal Exam: Distended, Soft - Rectal Exam Rectal Exam: Deferred - Exam Exam: NORMAL INSPECTION - Extremities Exam Extremities Exam: Pedal Edema - Back Exam Back Exam: absent: CVA tenderness (L), CVA tenderness (R) - Neurological Exam Neurological Exam: Alert, Awake, CN II-XII Intact, Oriented x3 - Psychiatric Exam Psychiatric exam: Normal Mood - Skin Skin Exam: Dry Assessment and Plan (1) Acute hypoxemic respiratory failure Status: Acute (2) Anemia Status: Acute (3) CAP (community acquired pneumonia) Status: Acute (4) CHF exacerbation Status: Acute (5) Coagulopathy Status: Acute (6) Hematoma Status: Acute (7) Hypotension Status: Acute (8) Influenza A Status: Resolved (9) Leukocytosis Status: Acute (10) NSTEMI (non-ST elevated myocardial infarction) Status: Acute (11) Pneumonia and influenza Status: Acute (12) Renal failure, acute Status: Acute (13) Sepsis Status: Acute (14) History of aortic valve replacement Status: Chronic (15) COPD (chronic obstructive pulmonary disease) Status: Suspected (16) Myocardial ischemia Status: Acute - Assessment and Plan (Free Text) Assessment: for acute rehab
[2018-12-21 04:45] VITALS: RESP 20
[2018-12-21 06:09] LABS: CALCIUM 9.3 mg/dL (8.4-10.2)
[2018-12-21] MEDS: Albuterol-Ipratrop 3 mg / 0.5 (3 ml) UD INH SCH ×4 (07:47→19:28)
--- NOTE | 2018-12-21 07:55 | RAD ---
Date of service: 12/21/2018 HISTORY: pneumona COMPARISON: Portable chest 12/17/2018. FINDINGS: LUNGS: Right PICC unchanged in position. No definitive infiltrates bilaterally. PLEURA: No significant pleural effusion identified, no pneumothorax apparent. CARDIOVASCULAR: Calcific atherosclerotic changes are seen related to the thoracic aorta. Cardiac size is stable. Mild pulmonary vascular congestion appears diminished. Post CABG changes reiterated. OSSEOUS STRUCTURES: No significant abnormalities. VISUALIZED UPPER ABDOMEN: Normal. OTHER FINDINGS: None. IMPRESSION: Diminishing pulmonary vascular congestion. No definite infiltrate bilaterally.
[2018-12-21] MEDS: Micafungin 100 MG in Sodium Chloride 0.9% 100 ML IVPB SCH (08:37)
--- NOTE | 2018-12-21 09:00 | CP.PCM.PN ---
<Celestine Calhoun - Last Filed: 12/21/18 10:14> Subjective - Date & Time of Evaluation Date of Evaluation: 12/21/18 Time of Evaluation: 09:00 - Subjective Subjective: Celestine Calhoun DO PGY1 - Internal Medicine Personnel Manager - Cardiology Note for Dr. Sutton Patient was seen and evaluated at bedside this morning. No complaints voiced on evaluation this morning. Denies CP, SOB, Palp. Objective - Vital Signs/Intake and Output Vital Signs (last 24 hours): Temp Pulse Resp BP Pulse Ox 98.7 F 86 20 107/69 97 12/21/18 08:56 12/21/18 08:56 12/21/18 08:56 12/21/18 08:56 12/21/18 08:56 - Medications Medications: Current Medications Albuterol Sulfate (Albuterol 0.083% Inhal Anastacia (2.5 Mg/3 Ml) Ud) 2.5 mg INH RQ4 PRN PRN Reason: Shortness of Breath Last Admin: 12/12/18 23:37 Dose: 2.5 mg Albuterol/Ipratropium (Duoneb 3 Mg/0.5 Mg (3 Ml) Ud) 3 ml INH RQID [facility] Last Admin: 12/21/18 07:47 Dose: 3 ml Famotidine (Pepcid) 20 mg PO BID [facility] Last Admin: 12/21/18 08:37 Dose: 20 mg Furosemide (Lasix) 20 mg PO DAILY [facility] Last Admin: 12/21/18 08:32 Dose: 20 mg Micafungin Sodium 100 mg/ (Sodium Chloride) 100 mls @ 100 mls/hr IVPB DAILY [facility]; Protocol Last Admin: 12/21/18 08:37 Dose: 100 mls/hr Lisinopril (Zestril) 2.5 mg PO DAILY [facility] Last Admin: 12/21/18 08:38 Dose: 2.5 mg Metoprolol Tartrate (Lopressor) 12.5 mg PO Q12 [facility] Last Admin: 12/21/18 08:36 Dose: 12.5 mg Warfarin Sodium (Coumadin) 7.5 mg PO QD5 [facility]; Protocol Stop: 12/21/18 17:01 - Labs Labs: 12/19/18 11:45 12/21/18 05:00 PT 29.9 Seconds (9.8-13.1) H 12/20/18 05:16 INR 2.6 12/20/18 05:16 APTT 184.3 Seconds (25.6-37.1) H 12/18/18 04:30 - Constitutional Appears: Well, Non-toxic, No Acute Distress - Head Exam Head Exam: ATRAUMATIC, NORMOCEPHALIC - Eye Exam Eye Exam: EOMI Pupil Exam: PERRL - Respiratory Exam Respiratory Exam: Wheezes - Cardiovascular Exam Cardiovascular Exam: REGULAR RHYTHM, +S1, +S2 - GI/Abdominal Exam GI & Abdominal Exam: Soft. absent: Tenderness - Extremities Exam Extremities Exam: Pedal Edema - Neurological Exam Neurological Exam: Alert, Awake - Skin Skin Exam: Dry, Intact, Normal Color, Warm Assessment and Plan (1) CAP (community acquired pneumonia) Status: Acute (2) CHF exacerbation Status: Acute (3) NSTEMI (non-ST elevated myocardial infarction) Status: Acute (4) Morbid obesity Status: Chronic (5) COPD (chronic obstructive pulmonary disease) Status: Suspected - Assessment and Plan (Free Text) Plan: Patient improving ; HD stable Aneurysm seen on [place]OL[place]ANG; C/w Zestril 2.5 Daily Continue Toprol 12.5 Q12 Continue Warfarin 7.5mg Daily INR 2.6 Goal INR 2.5-3 Monitor for s/s bleeding Further reccs per Dr. Sutton <Isaak Sutton - Last Filed: 12/21/18 22:58> Objective - Vital Signs/Intake and Output Vital Signs (last 24 hours): Temp Pulse Resp BP Pulse Ox 97.8 F 100 H 20 90/43 L 94 L 12/21/18 19:14 12/21/18 21:54 12/21/18 19:14 12/21/18 21:54 12/21/18 19:14 Intake and Output: 12/21/18 12/22/18 18:59 06:59 Intake Total 240 Balance 240 - Labs Labs: 12/19/18 11:45 12/21/18 05:00 PT 35.4 Seconds (9.8-13.1) H D 12/21/18 10:09 INR 3.0 12/21/18 10:09 APTT 184.3 Seconds (25.6-37.1) H 12/18/18 04:30 Assessment and Plan (1) NSTEMI (non-ST elevated myocardial infarction) Status: Acute (2) CAP (community acquired pneumonia) Status: Acute (3) CHF exacerbation Status: Acute (4) Respiratory distress Status: Acute (5) Respiratory failure with hypoxia and hypercapnia Status: Acute (6) History of aortic valve replacement Status: Chronic (7) Morbid obesity Status: Chronic (8) COPD (chronic obstructive pulmonary disease) Status: Suspected Attending/Attestation - Attestation I have personally seen and examined this patient.: Yes I have fully participated in the care of the patient.: Yes I have reviewed all pertinent clinical information, including history, physical exam and plan: Yes Notes (Text): 12/21/18 22:57 pt on admission had Type II AL will need evaluation for CAD once functional status improves cont meds as per outlined in resident note
[2018-12-21 10:23] LABS: PROTHROMBIN TIME 35.4 Seconds (9.8-13.1)
--- NOTE | 2018-12-21 13:18 | CP.PCM.PN ---
Subjective - Date & Time of Evaluation Date of Evaluation: 12/21/18 Time of Evaluation: 13:16 - Subjective Subjective: Seen on rounds in the telemetry unit. Asleep upon entry into the room but awakens easily. Offers no specific complaints this morning, but states she wishes to walk. No shortness of breath at rest and no respiratory muscle recruitment. The vital signs remained stable and she continues to be afebrile. Gradual decrease noted in BUN and creatinine. No leukocytosis, stable hemoglobin, normal platelet count. Today's INR is 3.0, in therapeutic range for AVR. Continued/gradual resolution of the anterior chest wall ecchymosis. The neck is supple and the trachea is midline. Unable to evaluate neck vein distention. Pharynx is pink and mucous membranes are moist without exudate. No subcutaneous emphysema palpated. Breath sounds are diminished bilaterally with scattered dependent dry rales posteriorly. No audible wheezing or bronchial breath sounds. Scattered sonorous rhonchi. Heart sounds are distant and the rhythm is regular. Abdomen is obese and nontender with normal bowel sounds. No dependent edema or cyanosis. Today's chest x-ray was reviewed and shows no evidence of acute infiltrates/consolidation. Status post acute influenza with pneumonia. Acute respiratory failure with hypoxemia and hypercapniaresolved. Acute renal failurenonoliguricresolving. Chronic obstructive pulmonary diseasesuspected. Aortic valve replacement on therapeutic warfarin. At the present moment her respiratory status appears stable. Current medical regimen will continue. Pulmonary function study as outpatient. Objective - Vital Signs/Intake and Output Vital Signs (last 24 hours): Temp Pulse Resp BP Pulse Ox 98.9 F 87 20 110/60 96 12/21/18 12:51 12/21/18 12:51 12/21/18 12:51 12/21/18 12:51 12/21/18 12:51 - Medications Medications: Current Medications Albuterol Sulfate (Albuterol 0.083% Inhal Anastacia (2.5 Mg/3 Ml) Ud) 2.5 mg INH RQ4 PRN PRN Reason: Shortness of Breath Last Admin: 12/12/18 23:37 Dose: 2.5 mg Albuterol/Ipratropium (Duoneb 3 Mg/0.5 Mg (3 Ml) Ud) 3 ml INH RQID [facility] Last Admin: 12/21/18 11:24 Dose: 3 ml Famotidine (Pepcid) 20 mg PO BID [facility] Last Admin: 12/21/18 08:37 Dose: 20 mg Furosemide (Lasix) 20 mg PO DAILY [facility] Last Admin: 12/21/18 08:32 Dose: 20 mg Micafungin Sodium 100 mg/ (Sodium Chloride) 100 mls @ 100 mls/hr IVPB DAILY [facility]; Protocol Last Admin: 12/21/18 08:37 Dose: 100 mls/hr Lisinopril (Zestril) 2.5 mg PO DAILY [facility] Last Admin: 12/21/18 08:38 Dose: 2.5 mg Metoprolol Tartrate (Lopressor) 12.5 mg PO Q12 [facility] Last Admin: 12/21/18 08:36 Dose: 12.5 mg Warfarin Sodium (Coumadin) 7.5 mg PO QD5 [facility]; Protocol Stop: 12/21/18 17:01 - Labs Labs: 12/19/18 11:45 12/21/18 05:00 PT 35.4 Seconds (9.8-13.1) H D 12/21/18 10:09 INR 3.0 12/21/18 10:09 APTT 184.3 Seconds (25.6-37.1) H 12/18/18 04:30 Assessment and Plan (1) Respiratory failure with hypoxia and hypercapnia Status: Acute (2) Influenza A Status: Resolved (3) Pneumonia and influenza Status: Acute (4) Morbid obesity Status: Chronic (5) COPD (chronic obstructive pulmonary disease) Status: Suspected
--- NOTE | 2018-12-21 18:47 | CP.PCM.PN ---
Subjective - Date & Time of Evaluation Date of Evaluation: 12/21/18 Time of Evaluation: 18:46 - Subjective Subjective: Patient improving well Objective - Vital Signs/Intake and Output Vital Signs (last 24 hours): Temp Pulse Resp BP Pulse Ox 97.4 F L 99 H 20 110/66 98 12/21/18 16:02 12/21/18 16:02 12/21/18 16:02 12/21/18 16:02 12/21/18 16:02 Intake and Output: 12/21/18 12/21/18 11:59 23:59 Intake Total 240 Balance 240 - Medications Medications: Current Medications Albuterol Sulfate (Albuterol 0.083% Inhal Anastacia (2.5 Mg/3 Ml) Ud) 2.5 mg INH RQ4 PRN PRN Reason: Shortness of Breath Last Admin: 12/12/18 23:37 Dose: 2.5 mg Albuterol/Ipratropium (Duoneb 3 Mg/0.5 Mg (3 Ml) Ud) 3 ml INH RQID [facility] Last Admin: 12/21/18 15:27 Dose: 3 ml Famotidine (Pepcid) 20 mg PO BID [facility] Last Admin: 12/21/18 17:03 Dose: 20 mg Furosemide (Lasix) 20 mg PO DAILY [facility] Last Admin: 12/21/18 08:32 Dose: 20 mg Micafungin Sodium 100 mg/ (Sodium Chloride) 100 mls @ 100 mls/hr IVPB DAILY [facility] ; Protocol Last Admin: 12/21/18 08:37 Dose: 100 mls/hr Lisinopril (Zestril) 2.5 mg PO DAILY [facility] Last Admin: 12/21/18 08:38 Dose: 2.5 mg Metoprolol Tartrate (Lopressor) 12.5 mg PO Q12 [facility] Last Admin: 12/21/18 08:36 Dose: 12.5 mg - Labs Labs: 12/19/18 11:45 12/21/18 05:00 PT 35.4 Seconds (9.8-13.1) H D 12/21/18 10:09 INR 3.0 12/21/18 10:09 APTT 184.3 Seconds (25.6-37.1) H 12/18/18 04:30 - Constitutional Appears: Chronically Ill - Head Exam Head Exam: ATRAUMATIC, NORMAL INSPECTION, NORMOCEPHALIC - Eye Exam Eye Exam: Normal appearance - ENT Exam ENT Exam: Normal Exam - Neck Exam Neck Exam: Full ROM - Respiratory Exam Respiratory Exam: Decreased Breath Sounds - Cardiovascular Exam Cardiovascular Exam: REGULAR RHYTHM, +S1, +S2 - GI/Abdominal Exam GI & Abdominal Exam: Normal Bowel Sounds - Extremities Exam Extremities Exam: Full ROM - Neurological Exam Neurological Exam: Abnormal Gait, Alert, Awake, CN II-XII Intact - Psychiatric Exam Psychiatric exam: Depressed, Flat Affect - Skin Skin Exam: Warm Assessment and Plan (1) CAP (community acquired pneumonia) Status: Acute (2) CHF exacerbation Status: Acute (3) DVT prophylaxis Status: Acute (4) History of aortic valve replacement Status: Chronic (5) Influenza A Status: Resolved (6) NSTEMI (non-ST elevated myocardial infarction) Status: Acute (7) Pneumonia and influenza Status: Acute (8) Respiratory distress Status: Acute (9) Respiratory failure with hypoxia and hypercapnia Status: Acute (10) Morbid obesity Status: Chronic (11) COPD (chronic obstructive pulmonary disease) Status: Suspected (12) Myocardial ischemia Status: Acute (13) Renal failure, acute Status: Acute (14) Hematoma Status: Acute (15) Sepsis Status: Acute - Assessment and Plan (Free Text) Plan: For acute rehabilitation
[2018-12-21 19:14] VITALS: BP 90/43; PULSE 100; TEMP 97.8; O2SAT 94
--- NOTE | 2018-12-21 20:41 | CP.PCM.HP ---
History of Present Illness - History of Present Illness History of Present Illness: Patient is a 58 year old female with a history of morbid obesity, vascular heart disease, HTN, possible COPD, and aortic valve replacement, presents with x 2 days of fever, cough and shortness of breath still smoke 2 packs per day. In ER she presented with severe SOB not controlled with the support of the Bipap and elevated troponin levels. She was admitted in ICU and eventually she was intubated. She responded to therapy. Patient now transferred to acute rehabilitation. Past Patient History - Past Medical History & Family History Past Medical History?: Yes - Past Social History Smoking Status: Heavy Smoker > 10 Cigarettes Daily - CARDIAC Hx Congestive Heart Failure: Yes Hx Hypertension: Yes Other/Comment: AVR - PULMONARY Hx Chronic Obstructive Pulmonary Disease (COPD): Yes (possible) - NEUROLOGICAL Hx Neurological Disorder: No - HEENT Hx HEENT Problems: No - RENAL Hx Chronic Kidney Disease: No - ENDOCRINE/METABOLIC Hx Endocrine Disorders: No - HEMATOLOGICAL/ONCOLOGICAL Hx Blood Disorders: No Hx Human Immunodeficiency Virus (HIV): No - INTEGUMENTARY Hx Dermatological Problems: No - MUSCULOSKELETAL/RHEUMATOLOGICAL Hx Falls: No - GASTROINTESTINAL Hx Gastrointestinal Disorders: No Other/Comment: gastric bypass-gastric band. >morbid obesity - GENITOURINARY/GYNECOLOGICAL Hx Genitourinary Disorders: No - PSYCHIATRIC Hx Substance Use: No - SURGICAL HISTORY Hx Gastric Bypass Surgery: Yes Hx Valve Replacement: Yes (aortic) - ANESTHESIA Hx Anesthesia: Yes Hx Anesthesia Reactions: No Hx Malignant Hyperthermia: No Has any member of the family had a problem w/ anesthesia?: No Meds Home Medications: Home Medication List Medication Instructions Recorded Confirmed Type Albuterol 0.083% [Albuterol 0.083% 2.5 mg INH RQ4 PRN neb 12/21/18 Rx Inhal Anastacia (2.5 mg/3 ml) UD] Albuterol/Ipratropium [Duoneb 3 3 ml INH RQID neb 12/21/18 Rx mg/0.5 mg (3 ml) UD] Famotidine [Pepcid] 20 mg PO BID tab 12/21/18 Rx Furosemide [Lasix] 20 mg PO DAILY tab 12/21/18 Rx Lisinopril [Zestril] 2.5 mg PO DAILY tab 12/21/18 Rx Metoprolol Tartrate [Lopressor] 12.5 mg PO Q12 tab 12/21/18 Rx Sodium Chloride for Inhalation 4 ml IH ONCE PRN vial.neb 12/21/18 Rx [Sodium Chloride 3% for Inhalation] Allergies/Adverse Reactions: Allergies Allergy/AdvReac Type Severity Reaction Status Date / Time No Known Allergies Allergy Verified 11/25/18 20:03 Results - Vital Signs Recent Vital Signs: Last Vital Signs Temp 97.8 F 12/21/18 19:14 Pulse 100 H 12/21/18 19:14 Resp 20 12/21/18 19:14 BP 90/43 L 12/21/18 19:14 Pulse Ox 94 L 12/21/18 19:14 - Labs Result Diagrams: 12/19/18 11:45 12/21/18 05:00 Labs: Laboratory Results - last 24 hr 12/21/18 12/21/18 05:00 10:09 PT 35.4 H D INR 3.0 Sodium 143 Potassium 4.2 Chloride 104 Carbon Dioxide 28 Anion Gap 15 BUN 44 H Creatinine 1.6 H Est GFR ( Amer) 40 Est GFR (Non-Af Amer) 33 Random Glucose 95 Calcium 9.3 Magnesium 1.7 Assessment & Plan (1) CAP (community acquired pneumonia) Status: Acute Priority: High (2) CHF exacerbation Status: Acute Priority: High (3) DVT prophylaxis Status: Acute (4) History of aortic valve replacement Status: Chronic (5) Influenza A Status: Resolved Priority: High (6) NSTEMI (non-ST elevated myocardial infarction) Status: Acute (7) Pneumonia and influenza Status: Acute Priority: High (8) Respiratory distress Status: Acute (9) Respiratory failure with hypoxia and hypercapnia Status: Acute Priority: High (10) Morbid obesity Status: Chronic Priority: High (11) COPD (chronic obstructive pulmonary disease) Status: Suspected Priority: High (12) Myocardial ischemia Status: Acute (13) Renal failure, acute Status: Acute (14) Hematoma Status: Acute (15) Sepsis Status: Acute
--- NOTE | 2018-12-21 20:43 | CP.PCM.DIS ---
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 NSTEMI (?) Pulmonology Consult Routine Comment: Consulting Provider: Froylan Adamson Consulting Physician: Froylan Adamson Reason for Consult: Intubated pt 11/26/18 09:00 Pastoral Care Referral Routine Comment: Physician Instructions: Reason For Exam: admission 11/26/18 09:50 Nursing Referral for Wound Care Routine Comment: Physician Instructions: Reason For Exam: admission,dry skin/heels,reddenede sacral area and 11/26/18 10:00 Social Work Referral Routine Comment: discharge Physician Instructions: Reason For Exam: admission 11/26/18 21:06 Cardiology Consult Routine Comment: Consulting Provider: Isaak Sutton Consulting Physician: Isaak Sutton Reason for Consult: elevated troponin 11/29/18 15:24 Gastroenterology Consult Routine Comment: Consulting Provider: Kamaljit Chaudhry Consulting Physician: Kamaljit Chaudhry Reason for Consult: black stool, dropping HGB, distended abdomen 11/30/18 13:04 Nephrology Consult Routine Comment: Consulting Provider: Chico Watson Consulting Physician: Chico Watson Reason for Consult: Acute Kidney injury, r/o ATN vs Pre-Renal Azotemia 12/01/18 09:08 Hematology Oncology Consult Routine Comment: Consulting Provider: Clayton France Consulting Physician: Clayton France Reason for Consult: low h/h 12/05/18 14:05 Infectious Disease Consult Routine Comment: Consulting Provider: Feliz Coppola Consulting Physician: Feliz Coppola Reason for Consult: Sepsis Time Spent in preparation of Discharge (in minutes): 30 Diagnosis - Discharge Diagnosis (1) CAP (community acquired pneumonia) Status: Acute Priority: High (2) CHF exacerbation Status: Acute Priority: High (3) DVT prophylaxis Status: Acute (4) History of aortic valve replacement Status: Chronic (5) Influenza A Status: Resolved Priority: High (6) NSTEMI (non-ST elevated myocardial infarction) Status: Acute (7) Pneumonia and influenza Status: Acute Priority: High (8) Respiratory distress Status: Acute (9) Respiratory failure with hypoxia and hypercapnia Status: Acute Priority: High (10) Morbid obesity Status: Chronic Priority: High (11) COPD (chronic obstructive pulmonary disease) Status: Suspected Priority: High (12) Myocardial ischemia Status: Acute (13) Renal failure, acute Status: Acute (14) Hematoma Status: Acute (15) Sepsis Status: Acute Hospital Course - Lab Results Lab Results: Micro Results 12/18/18 09:00 Naris MRSA Culture (Admit) - Final MRSA NOT DETECTED 12/10/18 11:30 Blood-Venous Blood Culture - Final NO GROWTH AFTER 5 DAYS 12/10/18 11:30 Blood-Venous Gram Stain - Final TEST NOT PERFORMED 12/10/18 11:30 Blood-Venous Blood Culture - Final NO GROWTH AFTER 5 DAYS 12/10/18 11:30 Blood-Venous Gram Stain - Final TEST NOT PERFORMED 12/06/18 16:54 Trachasp Gram Stain - Final 12/06/18 16:54 Trachasp Sputum Culture - Final Yeast Species 12/06/18 17:26 Urine,Catheterized Urine Culture - Final Yeast Species 12/02/18 15:59 Blood-Thru Central Line Blood Culture - Final NO GROWTH AFTER 5 DAYS 12/02/18 15:59 Blood-Thru Central Line Gram Stain - Final TEST NOT PERFORMED 12/02/18 15:49 Blood-Thru Central Line Blood Culture - Final Coagulase Neg Staphylococcus 12/02/18 15:49 Blood-Thru Central Line Gram Stain - Final 12/02/18 06:16 Trachasp Gram Stain - Final 12/02/18 06:16 Trachasp Sputum Culture - Final Yeast Species 11/25/18 21:00 Blood Blood Culture - Final NO GROWTH AFTER 5 DAYS 11/25/18 21:00 Blood Gram Stain - Final TEST NOT PERFORMED 11/26/18 14:47 Urine,Olivarez Urine Culture - Final No Growth (<1,000 CFU/ML) 11/26/18 14:47 Trachasp Gram Stain - Final 11/26/18 14:47 Trachasp Sputum Culture - Final NORMAL ORAL KARISSA 11/25/18 07:49 Nose MRSA Culture (Admit) - Final MRSA NOT DETECTED Most Recent Lab Values WBC 6.2 K/uL (4.8-10.8) 12/19/18 11:45 RBC 3.11 Mil/uL (3.80-5.20) L 12/19/18 11:45 Hgb 9.7 g/dL (12.0-16.0) L 12/19/18 11:45 Hct 29.8 % (34.0-47.0) L 12/19/18 11:45 MCV 95.9 fl (81.0-99.0) 12/19/18 11:45 MCH 31.2 pg (27.0-31.0) H 12/19/18 11:45 MCHC 32.6 g/dL (33.0-37.0) L 12/19/18 11:45 RDW 17.4 % (11.5-14.5) H 12/19/18 11:45 Plt Count 264 K/uL (130-400) 12/19/18 11:45 MPV 7.2 fl (7.2-11.7) 12/19/18 11:45 Neut % (Auto) 66.1 % (50.0-75.0) 12/19/18 11:45 Lymph % (Auto) 18.9 % (20.0-40.0) L 12/19/18 11:45 [place] % (Auto) 8.6 % (0.0-10.0) 12/19/18 11:45 Eos % (Auto) 5.7 % (0.0-4.0) H 12/19/18 11:45 Baso % (Auto) 0.7 % (0.0-2.0) 12/19/18 11:45 Neut # (Auto) 4.1 K/uL (1.8-7.0) 12/19/18 11:45 Lymph # (Auto) 1.2 K/uL (1.0-4.3) 12/19/18 11:45 [place] # (Auto) 0.5 K/uL (0.0-0.8) 12/19/18 11:45 Eos # (Auto) 0.4 K/uL (0.0-0.7) 12/19/18 11:45 Baso # (Auto) 0.0 K/uL (0.0-0.2) 12/19/18 11:45 Neutrophils % (Manual) 89 % (42-75) H 12/10/18 05:00 Band Neutrophils % 2 % (0-2) 11/25/18 21:00 Lymphocytes % (Manual) 3 % (20-50) L 12/10/18 05:00 Monocytes % (Manual) 5 % (0-10) 12/10/18 05:00 Eosinophils % (Manual) 2 % (0-7) 12/10/18 05:00 Basophils % (Manual) 1 % (0-2) 12/10/18 05:00 Myelocytes % 1 % (0-0) H 11/25/18 21:00 Platelet Estimate Normal (NORMAL) 12/10/18 05:00 Hypochromasia (manual) Moderate 12/10/18 05:00 Anisocytosis (manual) Slight 12/10/18 05:00 Retic Count 1.1 % (0.5-1.5) 12/02/18 04:50 PT 35.4 Seconds (9.8-13.1) H D 12/21/18 10:09 INR 3.0 12/21/18 10:09 APTT 184.3 Seconds (25.6-37.1) H 12/18/18 04:30 Fibrinogen 463 mg/dl (200-400) H 11/29/18 18:24 Fibrin Degrad Products Positive (NEGATIVE) H 11/29/18 18:24 Fibrin Degrad Prod, Qt >10<40 ug/mL (<10) H 11/29/18 18:24 D-Dimer, Quantitative 205 ng/mlDDU (0-230) 11/29/18 18:24 pCO2 40 mm/Hg (35-45) 12/10/18 03:03 pO2 49 mm/Hg (80-100) L 12/10/18 03:03 HCO3 22.9 mmol/L (21-28) 12/10/18 03:03 ABG pH 7.37 (7.35-7.45) 12/10/18 03:03 ABG Total CO2 24.3 mmol/L (22-28) 12/10/18 03:03 ABG O2 Saturation 87.8 % (95-98) L 12/10/18 03:03 ABG O2 Content 17.0 ML/dL (15-23) 12/10/18 03:03 ABG Base Excess -2.0 mmol/L (-2.0-3.0) 12/10/18 03:03 ABG Hemoglobin 14.6 g/dL (11.7-17.4) 12/10/18 03:03 ABG Carboxyhemoglobin 3.6 % (0.5-1.5) H 12/10/18 03:03 POC ABG HHb (Measured) 11.6 % (0.0-5.0) H 12/10/18 03:03 ABG Methemoglobin 1.6 % (0.0-3.0) 12/10/18 03:03 ABG O2 Capacity 19.4 mL/dL (16-24) 12/10/18 03:03 Juanito Test Yes 12/10/18 03:03 ABG Potassium 4.0 mmol/L (3.6-5.2) 12/08/18 12:52 VBG pH 7.27 (7.32-7.43) L 12/02/18 12:34 VBG pCO2 52 mmHg (40-60) 12/02/18 12:34 VBG HCO3 21.1 mmol/L 12/02/18 12:34 VBG Total CO2 25.5 mmol/L (22-28) 12/02/18 12:34 VBG O2 Sat (Calc) 80.9 % (40-65) H 12/02/18 12:34 VBG Base Excess -3.6 mmol/L (0.0-2.0) L 12/02/18 12:34 VBG Potassium 4.1 mmol/L (3.6-5.2) 12/02/18 12:34 A-a O2 Difference 101.0 mm/Hg 12/10/18 03:03 Hgb O2 Saturation 83.2 % (95.0-98.0) L 12/10/18 03:03 Sodium 134.0 mmol/L (132-148) 12/08/18 12:52 Chloride 103.0 mmol/L (98-107) 12/08/18 12:52 Glucose 117 mg/dL (65-105) H 12/08/18 12:52 Lactate 0.5 mmol/L (0.7-2.1) L 12/08/18 12:52 Vent Mode Bipap 12/09/18 05:53 Mechanical Rate 16 12/09/18 05:53 FiO2 28.0 % 12/10/18 03:03 Tidal Volume 450 12/08/18 04:58 PEEP 5 12/08/18 12:52 Pressure Support 15 12/03/18 04:12 CPAP 10 12/08/18 12:52 Inspiratory BiPAP 10 12/09/18 05:53 Expiratory BiPAP 5 12/09/18 05:53 Crit Value Called To Dr. cong calvo 11/26/18 13:50 Crit Value Called By 11/26/18 13:50 Crit Value Read Back Y 11/26/18 13:50 Blood Gas Notified Time 1355 11/26/18 13:50 Sodium 143 mmol/l (132-148) 12/21/18 05:00 Potassium 4.2 MMOL/L (3.6-5.0) 12/21/18 05:00 Chloride 104 mmol/L (98-107) 12/21/18 05:00 Carbon Dioxide 28 mmol/L (22-30) 12/21/18 05:00 Anion Gap 15 (10-20) 12/21/18 05:00 BUN 44 mg/dl (7-17) H 12/21/18 05:00 Creatinine 1.6 mg/dl (0.7-1.2) H 12/21/18 05:00 Est GFR ( Amer) 40 12/21/18 05:00 Est GFR (Non-Af Amer) 33 12/21/18 05:00 POC Glucose (mg/dL) 89 mg/dL (65-110) 12/19/18 07:00 Random Glucose 95 mg/dL (65-105) 12/21/18 05:00 Lactic Acid 0.8 MMOL/L (0.7-2.1) 11/26/18 04:55 Calcium 9.3 mg/dL (8.4-10.2) 12/21/18 05:00 Phosphorus 4.2 mg/dl (2.5-4.5) 12/19/18 11:45 Magnesium 1.7 MG/DL (1.6-2.3) 12/21/18 05:00 Ferritin 720.0 ng/Ml (11.1-264.0) H 12/02/18 04:50 Total Bilirubin 0.3 mg/dl (0.2-1.3) 12/18/18 04:30 Direct Bilirubin 0.5 mg/ml (0.0-0.4) H 12/07/18 10:07 AST 29 U/L (14-36) 12/18/18 04:30 ALT 39 U/L (9-52) 12/18/18 04:30 Alkaline Phosphatase 86 U/L (38-126) 12/18/18 04:30 Troponin I 2.4100 ng/mL (0.00-0.120) H* 11/26/18 12:25 NT-Pro-B Natriuret Pep 40848 pg/ml (0-900) H 12/04/18 06:40 Total Protein 7.2 G/DL (6.3-8.2) 12/18/18 04:30 Albumin 3.0 g/dL (3.5-5.0) L 12/18/18 04:30 Globulin 4.2 gm/dL (2.2-3.9) H 12/18/18 04:30 Albumin/Globulin Ratio 0.7 (1.0-2.1) L 12/18/18 04:30 Vitamin B12 913 pg/mL (239-931) 12/02/18 04:50 Folate 2.2 ng/mL 12/02/18 04:50 Procalcitonin 0.63 NG/ML (0.19-0.49) H 12/06/18 16:40 TSH 3rd Generation 0.20 mIU/ML (0.46-4.68) L 11/27/18 04:40 Arterial Blood Potassium 4.0 mmol/L (3.6-5.2) 12/08/18 12:52 Venous Blood Potassium 4.1 mmol/L (3.6-5.2) 12/02/18 12:34 Urine Color Alexa (YELLOW) 12/10/18 15:40 Urine Clarity Turbid (Clear) 12/10/18 15:40 Urine pH 5.0 (5.0-8.0) 12/10/18 15:40 Ur Specific [place] 1.006 (1.003-1.030) 12/10/18 15:40 Urine Protein 30 mg/dL (NEGATIVE) 12/10/18 15:40 Urine Glucose (UA) Neg mg/dL (NEGATIVE) 12/10/18 15:40 Urine Ketones Negative mg/dL (NEGATIVE) 12/10/18 15:40 Urine Blood Moderate (NEGATIVE) 12/10/18 15:40 Urine Nitrate Negative (NEGATIVE) 12/10/18 15:40 Urine Bilirubin Negative (NEGATIVE) 12/10/18 15:40 Urine Urobilinogen 0.2-1.0 mg/dL (0.2-1.0) 12/10/18 15:40 Ur Leukocyte Esterase Large Susan/uL (Negative) 12/10/18 15:40 Urine RBC (Auto) 112 /hpf (0-3) H 12/10/18 15:40 Urine WBC Clumps (Auto) Many /hpf (NONE) H 12/10/18 15:40 Urine Microscopic WBC 621 /hpf (0-5) H 12/10/18 15:40 Ur Squamous Epith Cells 12 /hpf (0-5) H 12/10/18 15:40 Amorphous Sediment Few /ul (<OCC) H 12/10/18 15:40 Urine Bacteria Few (<OCC) H 12/10/18 15:40 Urine Yeast (Budding) Many /hpf (NEGATIVE) H 12/06/18 16:41 Urine Eosinophils Positive (NEGATIVE) H 12/07/18 13:52 Ur Random Creatinine 73.6 mg/dL 11/30/18 14:00 U Random Total Protein 2552 mg/g creat (21-161) H 12/04/18 02:40 Ur Random Sodium 25 mmol/L 11/30/18 14:00 Urine Creatinine 28 mg/dL (20-275) 12/04/18 02:40 Urine Microalbumin 3.0 mg/dL 12/04/18 02:40 Microalb/Creat Ratio 106 (<30) H 12/04/18 02:40 Stool Occult Blood Negative (NEGATIVE) 12/10/18 15:40 Vancomycin Trough 16.5 ug/mL (5.0-10.0) H 12/05/18 04:50 Complement C3 130.0 mg/dL (88.0-165.0) 12/05/18 04:50 Complement C4 46.8 mg/dL (14.0-44.0) H 12/05/18 04:50 C. difficile Ag & Toxin Negative (NEGATIVE) 12/13/18 20:46 Hep Bs Antigen Negative (NEGATIVE) 12/04/18 15:39 Hep Bs Antibody, Quant 11 mIU/mL (>or=10) 12/04/18 15:39 Hep B Core IgM Ab Negative (NEGATIVE) 12/04/18 15:39 Hepatitis C Antibody Negative (NEGATIVE) 12/04/18 15:39 Influenza Typ A,B (EIA) Pos for influenza a (NEGATIVE) H 11/25/18 21:00 Mumps Virus IgG Ab 159.00 AU/mL 12/06/18 16:40 Rubella IgG Antibody 28.10 index 12/06/18 16:40 Rubeola (Measles) IgG >300.00 AU/mL 12/06/18 16:40 VZV IgG Antibody Positive (POSITIVE) 12/06/18 16:40 VZV IgM Antibody <=0.90 (<=0.90) 12/06/18 16:40 Blood Type A POSITIVE 12/10/18 11:30 Blood Type Confirm A POSITIVE 11/30/18 08:45 Antibody Screen Negative 12/10/18 11:30 Crossmatch See Detail 12/10/18 11:30 BBK History Checked Patient has bt 12/10/18 11:30 - Hospital Course Hospital Course: Patient is a 58 year old female with a history of morbid obesity, vascular heart disease, HTN, possible COPD, and aortic valve replacement, presents with x2 days of fever, cough and shortness of breath still smoke 2 packs per day. In ER she presented with severe SOB not controlled with the support of the Bipap and elevated troponin levels. She was admitted in ICU and eventually she was intubated. She responded to rx. Now transferred to acute rehabilitation. Discharge Exam - Head Exam Head Exam: ATRAUMATIC, NORMAL INSPECTION, NORMOCEPHALIC - Eye Exam Eye Exam: Normal appearance - ENT Exam ENT Exam: Normal Exam - Respiratory Exam Respiratory Exam: Decreased Breath Sounds - Cardiovascular Exam Cardiovascular Exam: REGULAR RHYTHM, +S1, +S2 - GI/Abdominal Exam GI & Abdominal Exam: Normal Bowel Sounds - Neurological Exam Neurological exam: Abnormal Gait, Alert, CN II-XII Intact - Psychiatric Exam Psychiatric exam: Flat Affect - Skin Skin Exam: Warm Discharge Plan - Follow Up Plan Condition: GUARDED Disposition: REHAB FACILITY/REHAB UNIT Instructions: Heart Failure, Adult (DC), Community-Acquired Pneumonia, Adult (DC) Additional Instructions: follow up with animal nutritionist and pmd 5-7 days Referrals: Isaak Sutton MD [Staff Provider] - Chico Watson MD [Staff Provider] -
--- NOTE | 2018-12-21 21:20 | CP.PCM.PN ---
Subjective - Date & Time of Evaluation Date of Evaluation: 12/20/18 Time of Evaluation: 19:00 - Subjective Subjective: Patient reports feeling well; breathing well; ambulated with PT today; urinating well, is continent; tolerating diet; Objective - Vital Signs/Intake and Output Vital Signs (last 24 hours): Temp Pulse Resp BP Pulse Ox 97.8 F 100 H 20 90/43 L 94 L 12/21/18 19:14 12/21/18 19:14 12/21/18 19:14 12/21/18 19:14 12/21/18 19:14 Intake and Output: 12/21/18 12/22/18 18:59 06:59 Intake Total 240 Balance 240 - Medications Medications: Current Medications Albuterol Sulfate (Albuterol 0.083% Inhal Anastacia (2.5 Mg/3 Ml) Ud) 2.5 mg INH RQ4 PRN PRN Reason: Shortness of Breath Last Admin: 12/12/18 23:37 Dose: 2.5 mg Albuterol/Ipratropium (Duoneb 3 Mg/0.5 Mg (3 Ml) Ud) 3 ml INH RQID [facility] Last Admin: 12/21/18 19:28 Dose: 3 ml Famotidine (Pepcid) 20 mg PO BID [facility] Last Admin: 12/21/18 17:03 Dose: 20 mg Furosemide (Lasix) 20 mg PO DAILY [facility] Last Admin: 12/21/18 08:32 Dose: 20 mg Micafungin Sodium 100 mg/ (Sodium Chloride) 100 mls @ 100 mls/hr IVPB DAILY [facility]; Protocol Last Admin: 12/21/18 08:37 Dose: 100 mls/hr Lisinopril (Zestril) 2.5 mg PO DAILY [facility] Last Admin: 12/21/18 08:38 Dose: 2.5 mg Metoprolol Tartrate (Lopressor) 12.5 mg PO Q12 [facility] Last Admin: 12/21/18 08:36 Dose: 12.5 mg - Labs Labs: 12/19/18 11:45 12/21/18 05:00 PT 35.4 Seconds (9.8-13.1) H D 12/21/18 10:09 INR 3.0 12/21/18 10:09 APTT 184.3 Seconds (25.6-37.1) H 12/18/18 04:30 - Constitutional Appears: Non-toxic, No Acute Distress - Eye Exam Eye Exam: Normal appearance - Respiratory Exam Respiratory Exam: Clear to Ausculation Bilateral. absent: Rales - Cardiovascular Exam Cardiovascular Exam: RRR. absent: Gallop, Rubs - GI/Abdominal Exam GI & Abdominal Exam: Soft. absent: Distended, Tenderness - Extremities Exam Additional comments: no leg edema; - Neurological Exam Neurological Exam: Alert, Awake - Psychiatric Exam Psychiatric exam: Normal Affect, Normal Mood. absent: Agitated - Skin Skin Exam: Warm. absent: Cyanosis Assessment and Plan (1) Renal failure, acute Assessment & Plan: ATN with superimposed AIN; renal function continues to slowly improve; stable electrolyte status, hypoxia resolved with patient on room air; intermittent borderline hypotension with patient on low doses of anti-htn agents (mainly for cardiac optimization); -recommend to keep MAP > 65; consider holding diuretic altogether (dose already decreased); -avoid nephrotoxic agents (PPI, NSAIDS, etc); -obtaining UA to assess for ongoing inflammation from AIN; Status: Acute (2) Acute hypoxemic respiratory failure Status: Acute (3) Anemia Status: Acute (4) Hypotension Status: Acute (5) Sepsis Status: Acute
--- NOTE | 2018-12-21 22:38 | CP.PCM.PN ---
Subjective - Date & Time of Evaluation Date of Evaluation: 12/21/18 Time of Evaluation: 18:00 - Subjective Subjective: No complaints. Objective - Vital Signs/Intake and Output Vital Signs (last 24 hours): Temp Pulse Resp BP Pulse Ox 97.8 F 100 H 20 90/43 L 94 L 12/21/18 19:14 12/21/18 21:54 12/21/18 19:14 12/21/18 21:54 12/21/18 19:14 Intake and Output: 12/21/18 12/22/18 18:59 06:59 Intake Total 240 Balance 240 - Medications Medications: Current Medications Albuterol Sulfate (Albuterol 0.083% Inhal Anastacia (2.5 Mg/3 Ml) Ud) 2.5 mg INH RQ4 PRN PRN Reason: Shortness of Breath Last Admin: 12/12/18 23:37 Dose: 2.5 mg Albuterol/Ipratropium (Duoneb 3 Mg/0.5 Mg (3 Ml) Ud) 3 ml INH RQID [facility] Last Admin: 12/21/18 19:28 Dose: 3 ml Famotidine (Pepcid) 20 mg PO BID [facility] Last Admin: 12/21/18 17:03 Dose: 20 mg Furosemide (Lasix) 20 mg PO DAILY [facility] Last Admin: 12/21/18 08:32 Dose: 20 mg Micafungin Sodium 100 mg/ (Sodium Chloride) 100 mls @ 100 mls/hr IVPB DAILY [facility]; Protocol Last Admin: 12/21/18 08:37 Dose: 100 mls/hr Lisinopril (Zestril) 2.5 mg PO DAILY [facility] Last Admin: 12/21/18 08:38 Dose: 2.5 mg Metoprolol Tartrate (Lopressor) 12.5 mg PO Q12 [facility] Last Admin: 12/21/18 21:54 Dose: Not Given - Labs Labs: 12/19/18 11:45 12/21/18 05:00 PT 35.4 Seconds (9.8-13.1) H D 12/21/18 10:09 INR 3.0 12/21/18 10:09 APTT 184.3 Seconds (25.6-37.1) H 12/18/18 04:30 - Head Exam Head Exam: ATRAUMATIC - Eye Exam Eye Exam: Normal appearance - ENT Exam ENT Exam: Mucous Membranes Dry - Respiratory Exam Respiratory Exam: NORMAL BREATHING PATTERN - Cardiovascular Exam Cardiovascular Exam: +S1, +S2 - GI/Abdominal Exam GI & Abdominal Exam: Normal Bowel Sounds Assessment and Plan (1) Anemia Assessment & Plan: anemia of CKD prior GI blood loss Status: Acute (2) Coagulopathy Assessment & Plan: anticoagulation Status: Acute
--- NOTE | 2018-12-24 14:03 | VASCULAR ---
Ultrasound and fluoroscopically guided insertion of left internal jugular vein non tunneled dialysis catheter History: 58-year-old female with renal failure. Comparison: None. Anesthesia: Local lidocaine. Procedure findings: The procedure was explained to the patient with relative risks and benefits. The patient understood the procedure and provided written informed consent. The patient was positioned supine on the angiographic table. Continuous physiologic monitoring was provided by the interventional radiology nurse. The left neck region was prepped and draped in the usual sterile technique. Under direct ultrasound guidance, the left internal jugular vein was accessed using a 21 gauge micropuncture needle. A permanent image was stored. A 0.018 inch wire was introduced through the needle into the SVC. The micropuncture needle was then exchanged for a 4 Cameroonian transition catheter. A stiff guidewire was introduced through the transition catheter into the IVC. A permanent image was stored. The transition catheter was then removed and serial fascial dilators were introduced into the left neck extending up to the venotomy site. Subsequently, a 14 Cameroonian, 20 centimeter dual lumen non tunneled dialysis catheter was introduced into the left internal jugular vein under fluoroscopic guidance. The catheter flushed with normal saline and heparin. The patient tolerated the procedure well without any incident. The patient was transferred from the interventional Radiology department in stable condition. Impression: Successful introduction of a left internal jugular vein non tunneled dialysis catheter.
--- NOTE | 2018-12-25 12:16 | PQF ---
PROVIDER RESPONSE TEXT: Acute renal failure resolved REVIEWER QUERY TEXT: Kidney Disease, Chronic CKD Stage Chronic Kidney Disease (CKD) is documented in the Medical Record. Please specify the disease stage ( includes probable or suspected) Such as: -- Chronic kidney disease Stage 1 -- Chronic kidney disease Stage 2 -- Chronic kidney disease Stage 3 -- Chronic kidney disease Stage 4 -- Chronic kidney disease Stage 5 -- Chronic kidney disease Stage 5, requiring dialysis -- End Stage Renal Disease -- Other, please specify Stages are defined by the [employer] as follows: CKD Stage I GFR >= 90 ml / min per 1.73 m2 and persistent albuminuria CKD Stage 2 GFR between 60 and 89 with persistent albuminuria CKD Stage 3 GFR between 30 and 59 CKD Stage 4 GFR between 15 and 29 CKD Stage 5 GFR between <15 or End Stage Renal Disease The patient's Clinical Indicators include: XX Query created by: Diana Carter on 12/25/2018 12:06 PM Electronically signed by: Willie Oliveira MD 12/25/2018 12:14 PM
--- NOTE | 2018-12-31 11:23 | PQF ---
PROVIDER RESPONSE TEXT: Acute CHF systolic dysfunction secondary to acute coronary syndrome REVIEWER QUERY TEXT: CHF Acuity and Type Congestive Heart Failure is documented in the Medical Record. Please document the type and acuity (in cludes probable or suspected) Such as: Type: -- Systolic -- Diastolic -- Combined -- Other, please specify Acuity: -- Acute -- Chronic -- Acute on chronic -- Other, please specify Also please document the underlying cause of the CHF (includes probable or suspected) The patient's Clinical Indicators include: xx Query created by: Diana Carter on 12/25/2018 12:02 PM Electronically signed by: Willie Oliveira MD 12/31/2018 11:21 AM
== END 2018-12-21 22:00 | DRG 870 ==
LOC: H.ER 19:16 → H.ERHOLD 22:14 → H.ICU/CCU 22:57 → H.TEL 12-18 18:05
PROVIDERS: ADMIT Internal Medicine; ATTEND Internal Medicine
PROC: 5A1955Z Respiratory Ventilation, Greater than 96 Consecutive Hours (ICD-10-PCS; 2018-11-26)
PROC: 05HM33Z Insertion of Infusion Device into Right Internal Jugular Vein, Percutaneous Approach (ICD-10-PCS; 2018-11-26)
PROC: 0BH17EZ Insertion of Endotracheal Airway into Trachea, Via Natural or Artificial Opening (ICD-10-PCS; 2018-11-26)
PROC: 3E02340 Introduction of Influenza Vaccine into Muscle, Percutaneous Approach (ICD-10-PCS; principal; 2018-11-27)
PROC: 3E0234Z Introduction of Serum, Toxoid and Vaccine into Muscle, Percutaneous Approach (ICD-10-PCS; 2018-11-27)
PROC: 30233N1 Transfusion of Nonautologous Red Blood Cells into Peripheral Vein, Percutaneous Approach (ICD-10-PCS; 2018-11-30)
PROC: 02HV33Z Insertion of Infusion Device into Superior Vena Cava, Percutaneous Approach (ICD-10-PCS; 2018-12-03)
PROC: B246ZZ4 Ultrasonography of Right and Left Heart, Transesophageal (ICD-10-PCS; 2018-12-04)
PROC: 05HN33Z Insertion of Infusion Device into Left Internal Jugular Vein, Percutaneous Approach (ICD-10-PCS; 2018-12-04)
PROC: 05PYX3Z Removal of Infusion Device from Upper Vein, External Approach (ICD-10-PCS; 2018-12-04)
PROC: 5A1D70Z Performance of Urinary Filtration, Intermittent, Less than 6 Hours Per Day (ICD-10-PCS; 2018-12-04)
DX: A41.9 Sepsis, unspecified organism (principal); J96.01 Acute respiratory failure with hypoxia; I21.4 Non-ST elevation (NSTEMI) myocardial infarction; J10.00 Influenza due to other identified influenza virus with unspecified type of pneumonia; J96.02 Acute respiratory failure with hypercapnia; K29.61 Other gastritis with bleeding; G93.41 Metabolic encephalopathy; N17.0 Acute kidney failure with tubular necrosis; I50.21 Acute systolic (congestive) heart failure; Z68.43 Body mass index [BMI] 50.0-59.9, adult; J44.0 Chronic obstructive pulmonary disease with (acute) lower respiratory infection; J44.1 Chronic obstructive pulmonary disease with (acute) exacerbation; D62 Acute posthemorrhagic anemia; N10 Acute pyelonephritis; T82.898A Other specified complication of vascular prosthetic devices, implants and grafts, initial encounter; E66.01 Morbid (severe) obesity due to excess calories; F17.210 Nicotine dependence, cigarettes, uncomplicated; Z79.01 Long term (current) use of anticoagulants; Z79.82 Long term (current) use of aspirin; Z95.2 Presence of prosthetic heart valve; Z98.84 Bariatric surgery status; Z23 Encounter for immunization; I25.10 Atherosclerotic heart disease of native coronary artery without angina pectoris; R21 Rash and other nonspecific skin eruption; G47.33 Obstructive sleep apnea (adult) (pediatric); R65.20 Severe sepsis without septic shock; R53.81 Other malaise; Z74.01 Bed confinement status; R79.1 Abnormal coagulation profile; E87.6 Hypokalemia; Y95 Nosocomial condition; I11.0 Hypertensive heart disease with heart failure

== ENCOUNTER 2018-12-21 16:43 | Inpatient (IN) | payer OTHER ==
[2018-12-21 18:06] VITALS: BMI 52.9
[2018-12-21] MEDS ORDERED: Albuterol 0.083% Inhal Sol (2.5 mg/3 mL) UD INH PRN (23:14)
[2018-12-21] MEDS ORDERED: Sodium Chloride 3% for Inhalation 4 ML VIAL.NEB IH PRN (23:17)
[2018-12-21] MEDS ORDERED: Albuterol 0.083% Inhal Sol (2.5 mg/3 mL) UD IH PRN (23:17)
[2018-12-22 06:54] LABS: CALCIUM 9.4 mg/dL (8.4-10.2)
[2018-12-22] MEDS: Albuterol-Ipratrop 3 mg / 0.5 (3 ml) UD INH SCH ×4 (07:45→19:36)
[2018-12-22 07:47] LABS: INR 4.2
[2018-12-22 07:49] LABS: PROTHROMBIN TIME 47.3 Seconds (9.8-13.1)
[2018-12-22] MEDS ORDERED: Patient's Own Med (Lisinopril [Zestril] 2.5 MG) PO SCH (09:00)
[2018-12-22] MEDS ORDERED: MICAFUNGIN 100 MG IV SCH (09:00)
[2018-12-22] MEDS ORDERED: Albuterol-Ipratrop 3 mg / 0.5 (3 ml) UD IH SCH (09:00)
--- NOTE | 2018-12-22 09:00 | CP.PCM.HP ---
History of Present Illness - History of Present Illness History of Present Illness: Patient is a 58 year old female with a history of morbid obesity, vascular heart disease, HTN, possible COPD, and aortic valve replacement, presents with x2 days of fever, cough and shortness of breath still smoke 2 packs per day. In ER she presented with severe SOB not controlled with the support of the Bipap and elevated troponin levels. She was admitted in ICU and eventually she was intubated. She presented with influenza and pneumonia. Her condition was complicated with acute GI bleed. She well responded to rx. At present c omfortable in bed. In no acute distress. The mood improving well. PT INR 4.2 will hold Coumadin, will follow INR. For acute PT. Present on Admission - Present on Admission Any Indicators Present on Admission: No Review of Systems - Constitutional Constitutional: Weakness - EENT Eyes: As Per HPI - Cardiovascular Cardiovascular: As Per HPI - Respiratory Respiratory: As Per HPI - Gastrointestinal Gastrointestinal: As Per HPI - Musculoskeletal Musculoskeletal: Muscle Weakness - Integumentary Integumentary: As Per HPI - Neurological Neurological: Abnormal Gait, Weakness - Psychiatric Psychiatric: Depression - Endocrine Endocrine: As Per HPI Past Patient History - Past Medical History & Family History Past Medical History?: Yes - Past Social History Smoking Status: Heavy Smoker > 10 Cigarettes Daily - CARDIAC Hx Cardiac Disorders: Yes Hx Congestive Heart Failure: (Yes-excacervation) Hx Hypertension: Yes Other/Comment: AVR. Valvular Heart Disease;. Myocardial Ischemia. NSTEMI - PULMONARY Hx Respiratory Disorders: Yes Hx Chronic Obstructive Pulmonary Disease (COPD): Yes Hx Pneumonia: (Yes-Community Acquired Pneumonia) Other/Comment: Influenza A;. Acute Respiratory Failure - NEUROLOGICAL Hx Neurological Disorder: No - HEENT Hx HEENT Problems: Yes Other/Comment: uses eyeglasses-farsighted - RENAL Hx Chronic Kidney Disease: No Hx Dialysis: Yes (had hemodialysis when in ICU;no HD at present) - ENDOCRINE/METABOLIC Hx Endocrine Disorders: Yes Other/Comment: Morbid Obesity - HEMATOLOGICAL/ONCOLOGICAL Hx Blood Disorders: Yes Hx AIDS: No Hx Anemia: Yes Hx Human Immunodeficiency Virus (HIV): No Other/Comment: Coagulopathy;. leucocytosis;. sepsis - INTEGUMENTARY Hx Dermatological Problems: No - MUSCULOSKELETAL/RHEUMATOLOGICAL Hx Falls: Yes - GASTROINTESTINAL Hx Gastrointestinal Disorders: Yes Other/Comment: gastric bypass-gastric band. >morbid obesity;. GI bleed - GENITOURINARY/GYNECOLOGICAL Hx Genitourinary Disorders: No - PSYCHIATRIC Hx Psychophysiologic Disorder: No Hx Substance Use: No - SURGICAL HISTORY Hx Surgeries: Yes Hx Gastric Bypass Surgery: Yes Hx Valve Replacement: Yes (aortic) - ANESTHESIA Hx Anesthesia: Yes Hx Anesthesia Reactions: No Hx Malignant Hyperthermia: No Meds Allergies/Adverse Reactions: Allergies Allergy/AdvReac Type Severity Reaction Status Date / Time No Known Allergies Allergy Verified 11/25/18 20:03 Physical Exam - Constitutional Appears: Chronically Ill - Head Exam Head Exam: ATRAUMATIC, NORMAL INSPECTION, NORMOCEPHALIC - Eye Exam Eye Exam: Normal appearance - ENT Exam ENT Exam: Mucous Membranes Moist - Neck Exam Neck exam: Positive for: Full Rom - Respiratory Exam Respiratory Exam: Decreased Breath Sounds - Cardiovascular Exam Cardiovascular Exam: REGULAR RHYTHM, +S1, +S2 - GI/Abdominal Exam GI & Abdominal Exam: Normal Bowel Sounds - Extremities Exam Extremities exam: Positive for: normal inspection - Neurological Exam Neurological exam: Abnormal Gait, Alert, CN II-XII Intact, Oriented x3 - Psychiatric Exam Psychiatric exam: Anxious, Depressed, Flat Affect - Skin Skin Exam: Pallor Results - Vital Signs Recent Vital Signs: Last Vital Signs Temp Pulse 104 H 12/21/18 22:10 Resp 20 12/21/18 22:10 BP Pulse Ox 99 12/21/18 22:10 - Labs Result Diagrams: 12/22/18 06:25 Labs: Laboratory Results - last 24 hr 12/22/18 12/22/18 06:25 06:25 PT 47.3 H* INR 4.2 Sodium 140 Potassium 4.4 Chloride 104 Carbon Dioxide 26 Anion Gap 14 BUN 42 H Creatinine 1.6 H Est GFR ( Amer) 40 Est GFR (Non-Af Amer) 33 Random Glucose 93 Calcium 9.4 Assessment & Plan (1) DVT prophylaxis Status: Acute (2) Morbid obesity Status: Chronic Priority: High (3) Myocardial ischemia Status: Resolved (4) NSTEMI (non-ST elevated myocardial infarction) Status: Resolved Priority: High (5) Pneumonia and influenza Status: Resolved Priority: High (6) Respiratory failure with hypoxia and hypercapnia Status: Resolved Priority: High (7) Sepsis Status: Resolved (8) History of aortic valve replacement Status: Chronic (9) Morbid obesity Status: Chronic Priority: High (10) COPD (chronic obstructive pulmonary disease) Status: Chronic Priority: High (11) Debilitated patient Status: Acute - Assessment and Plan (Free Text) Plan: As above
--- NOTE | 2018-12-22 10:50 | CP.PCM.CON ---
History of Present Illness - History of Present Illness History of Present Illness: Celestine Calhoun DO PGY1 - Cardiology Note For Dr. Sutton Patient is a 58-year-old female with a past medical history significant for hyp ertension ,dyslipidemia, coronary artery disease status post PCI, Aortic Stenosis, status post mechanical aortic valve replacement anticoagulated on Coumadin. Initially presented to [facility] with respiratory failure as well as possible underlying COPD, and sepsis due to infl uenza infection. Patient was tried on BiPAP however she could not tolerate and subsequently was intubated due to hypercarbic respiratory failure and acute pulmonary edema. Cardiology was consulted at that time due to patient having elevated components which peaked at 2.79. Patient was initially treated as NSTEMI vs Demand ischemia in setting of sepsis, however due to respiratory failure she was medically managed. During hospital course patient was noted to have GI bleed, ARF. Due to GIB+ Low INR patient was AC w/ Heparin Drip initially and then bridged back to warfarin therapy. WOLFGANG performed at bedside during hospitalization; patient noted to have aortic aneurysm. At this time patient is stable and participating in rehab due to weakness. During evaluation today, and prior evaluations she denies any complaints of chest pain, palpitations, shortness of breath. She is tolerating activity well during physical therapy. Remainder of 12 system ROS is otherwise negative. As per previous Dr. Sutton consultation: Medical History: Past Medical History: Diagnosis Date CAD (coronary artery disease) Dyspnea on exertion Hyperlipidemia Hypertension SC (myocardial infarction) Obesity Other and unspecified angina pectoris Pneumonia 05/2014 Surgical History: Past Surgical History: Procedure Laterality Date CARDIAC CATHERIZATION 2011 CARDIAC VALVE REPLACEMENT 02/12/2008 AVR SECTION CORONARY ANGIOPLASTY WITH STENT PLACEMENT 2006 CORONARY ARTERY BYPASS GRAFT 02/12/2008 CABG x 1 GASTRIC BYPASS SURGERY 2003 Social History Substance Use Topics Smoking status: Current Every Day Smoker Packs/day: 1.00 Years: 30.00 Types: Cigarettes Smokeless tobacco: Never Used Alcohol use No Family History Problem Relation Age of Onset Early Father Heart Disease Father Heart Disease Sister Heart Disease Brother No Known Medical Problems Mother Review of Systems - Review of Systems All systems: reviewed and no additional remarkable complaints except Review of Systems: as per HPI Past Patient History - Past Medical History & Family History Past Medical History?: Yes - Past Social History Smoking Status: Heavy Smoker > 10 Cigarettes Daily - CARDIAC Hx Cardiac Disorders: Yes Hx Congestive Heart Failure: (Yes-excacervation) Hx Hypertension: Yes Other/Comment: AVR. Valvular Heart Disease;. Myocardial Ischemia. NSTEMI - PULMONARY Hx Respiratory Disorders: Yes Hx Chronic Obstructive Pulmonary Disease (COPD): Yes Hx Pneumonia: (Yes-Community Acquired Pneumonia) Other/Comment: Influenza A;. Acute Respiratory Failure - NEUROLOGICAL Hx Neurological Disorder: No - HEENT Hx HEENT Problems: Yes Other/Comment: uses eyeglasses-farsighted - RENAL Hx Chronic Kidney Disease: No Hx Dialysis: Yes (had hemodialysis when in ICU;no HD at present) - ENDOCRINE/METABOLIC Hx Endocrine Disorders: Yes Other/Comment: Morbid Obesity - HEMATOLOGICAL/ONCOLOGICAL Hx Blood Disorders: Yes Hx AIDS: No Hx Anemia: Yes Hx Human Immunodeficiency Virus (HIV): No Other/Comment: Coagulopathy;. leucocytosis;. sepsis - INTEGUMENTARY Hx Dermatological Problems: No - MUSCULOSKELETAL/RHEUMATOLOGICAL Hx Falls: Yes - GASTROINTESTINAL Hx Gastrointestinal Disorders: Yes Other/Comment: gastric bypass-gastric band. >morbid obesity;. GI bleed - GENITOURINARY/GYNECOLOGICAL Hx Genitourinary Disorders: No - PSYCHIATRIC Hx Psychophysiologic Disorder: No Hx Substance Use: No - SURGICAL HISTORY Hx Surgeries: Yes Hx Gastric Bypass Surgery: Yes Hx Valve Replacement: Yes (aortic) - ANESTHESIA Hx Anesthesia: Yes Hx Anesthesia Reactions: No Hx Malignant Hyperthermia: No Meds Allergies/Adverse Reactions: Allergies Allergy/AdvReac Type Severity Reaction Status Date / Time No Known Allergies Allergy Verified 11/25/18 20:03 - Medications Medications: Current Medications Albuterol Sulfate (Albuterol 0.083% Inhal Anastacia (2.5 Mg/3 Ml) Ud) 2.5 mg INH RQ4 PRN PRN Reason: Shortness of Breath Albuterol/Ipratropium (Duoneb 3 Mg/0.5 Mg (3 Ml) Ud) 3 ml INH RQID [facility] Last Admin: 12/22/18 07:45 Dose: 3 ml Famotidine (Pepcid) 20 mg PO BID [facility] Last Admin: 12/22/18 09:12 Dose: 20 mg Micafungin Sodium 100 mg/ (Sodium Chloride) 100 mls @ 100 mls/hr IVPB DAILY [facility] Last Admin: 12/22/18 09:16 Dose: 100 mls/hr Lisinopril (Zestril) 2.5 mg PO DAILY [facility] Metoprolol Tartrate (Lopressor) 12.5 mg PO Q12 [facility] Last Admin: 12/22/18 09:13 Dose: 12.5 mg Physical Exam - Constitutional Appears: Well, Non-toxic, No Acute Distress - Head Exam Head Exam: ATRAUMATIC, NORMOCEPHALIC - Eye Exam Eye Exam: EOMI, Normal appearance, PERRL - ENT Exam ENT Exam: Mucous Membranes Moist - Respiratory Exam Respiratory Exam: Decreased Breath Sounds, Clear to Auscultation Bilateral - Cardiovascular Exam Cardiovascular Exam: RRR, +S1, +S2 - GI/Abdominal Exam GI & Abdominal Exam: Soft. absent: Tenderness Additional comments: Obese - Extremities Exam Extremities exam: Positive for: pedal pulses present. Negative for: pedal edema - Neurological Exam Neurological exam: Alert, Oriented x3 - Psychiatric Exam Psychiatric exam: Normal Affect, Normal Mood - Skin Skin Exam: Dry, Intact, Warm Additional comments: Bruises in lower neck/ upper chest Results - Vital Signs Recent Vital Signs: Last Vital Signs Temp Pulse 92 H 12/22/18 09:13 Resp 20 12/21/18 22:10 BP 126/62 12/22/18 09:13 Pulse Ox 99 12/21/18 22:10 - Labs Result Diagrams: 12/22/18 06:25 Labs: Laboratory Results - last 24 hr 12/22/18 12/22/18 06:25 06:25 PT 47.3 H* INR 4.2 Sodium 140 Potassium 4.4 Chloride 104 Carbon Dioxide 26 Anion Gap 14 BUN 42 H Creatinine 1.6 H Est GFR ( Amer) 40 Est GFR (Non-Af Amer) 33 Random Glucose 93 Calcium 9.4 Assessment & Plan (1) NSTEMI (non-ST elevated myocardial infarction) Status: Suspected Priority: High (2) COPD (chronic obstructive pulmonary disease) Status: Suspected Priority: High (3) Respiratory failure with hypoxia and hypercapnia Status: Resolved Priority: High (4) Sepsis Status: Resolved Priority: High (5) CAP (community acquired pneumonia) Status: Resolved Priority: High - Assessment and Plan (Free Text) Plan: Will plan for ischemic evaluation once patient is further stabilized. Continue: Zestril 2.5 Daily Toprol 12.5 Q12 Start Lipitor 40 Daily Hold Warfarin 7.5 Daily INR 4.2 Goal 2.5-3.[address] Sutton
--- NOTE | 2018-12-22 19:44 | PCM.OPOC ---
Physiatry Overall Plan of Care - Overall Plan of Care Estimated Length of Stay in Weeks: 3 Rehab Impairment: Mobility, Gait, Cognition, Balance, Coordination Etiologic Diagnosis: Other Rehab/Medical Prognosis: Fair - Anticipated Interventions Physical Therapy:: Yes Occupational Therapy:: Yes Recreational Therapy:: Yes - Therapy Goals Bed Mobility: Independent Ambulation: Supervision Functional Positional Changes:: Independent - Functional Outcomes Functional Outcomes: fair - Discharge Plan Identification of Barriers to Discharge: Family Discharge Destination: Home
--- NOTE | 2018-12-22 19:47 | CP.PCM.CON ---
History of Present Illness - History of Present Illness History of Present Illness: 58 year old female with multiple medical problems with NSTEMI with obesity, PVD, HTN, COPD, admitted to acute rehab Review of Systems - Musculoskeletal Musculoskeletal: Limited Range of Motion, Muscle Weakness Past Patient History - Past Medical History & Family History Past Medical History?: Yes - Past Social History Smoking Status: Heavy Smoker > 10 Cigarettes Daily - CARDIAC Hx Cardiac Disorders: Yes Hx Congestive Heart Failure: (Yes-excacervation) Hx Hypertension: Yes Other/Comment: AVR. Valvular Heart Disease;. Myocardial Ischemia. NSTEMI - PULMONARY Hx Respiratory Disorders: Yes Hx Chronic Obstructive Pulmonary Disease (COPD): Yes Hx Pneumonia: (Yes-Community Acquired Pneumonia) Other/Comment: Influenza A;. Acute Respiratory Failure - NEUROLOGICAL Hx Neurological Disorder: No - HEENT Hx HEENT Problems: Yes Other/Comment: uses eyeglasses-farsighted - RENAL Hx Chronic Kidney Disease: No Hx Dialysis: Yes (had hemodialysis when in ICU;no HD at present) - ENDOCRINE/METABOLIC Hx Endocrine Disorders: Yes Other/Comment: Morbid Obesity - HEMATOLOGICAL/ONCOLOGICAL Hx Blood Disorders: Yes Hx AIDS: No Hx Anemia: Yes Hx Human Immunodeficiency Virus (HIV): No Other/Comment: Coagulopathy;. leucocytosis;. sepsis - INTEGUMENTARY Hx Dermatological Problems: No - MUSCULOSKELETAL/RHEUMATOLOGICAL Hx Falls: Yes - GASTROINTESTINAL Hx Gastrointestinal Disorders: Yes Other/Comment: gastric bypass-gastric band. >morbid obesity;. GI bleed - GENITOURINARY/GYNECOLOGICAL Hx Genitourinary Disorders: No - PSYCHIATRIC Hx Psychophysiologic Disorder: No Hx Substance Use: No - SURGICAL HISTORY Hx Surgeries: Yes Hx Gastric Bypass Surgery: Yes Hx Valve Replacement: Yes (aortic) - ANESTHESIA Hx Anesthesia: Yes Hx Anesthesia Reactions: No Hx Malignant Hyperthermia: No Meds Allergies/Adverse Reactions: Allergies Allergy/AdvReac Type Severity Reaction Status Date / Time No Known Allergies Allergy Verified 11/25/18 20:03 - Medications Medications: Current Medications Albuterol Sulfate (Albuterol 0.083% Inhal Anastacia (2.5 Mg/3 Ml) Ud) 2.5 mg INH RQ4 PRN PRN Reason: Shortness of Breath Albuterol/Ipratropium (Duoneb 3 Mg/0.5 Mg (3 Ml) Ud) 3 ml INH RQID [facility] Last Admin: 02/05/19 19:36 Dose: 3 ml Atorvastatin Calcium (Lipitor) 40 mg PO HS [facility] Famotidine (Pepcid) 20 mg PO BID [facility] Last Admin: 12/22/18 18:03 Dose: 20 mg Micafungin Sodium 100 mg/ (Sodium Chloride) 100 mls @ 100 mls/hr IVPB DAILY [facility] Last Admin: 12/22/18 09:16 Dose: 100 mls/hr Lisinopril (Zestril) 2.5 mg PO DAILY [facility] Last Admin: 12/22/18 18:05 Dose: 2.5 mg Metoprolol Tartrate (Lopressor) 12.5 mg PO Q12 [facility] Last Admin: 12/22/18 09:13 Dose: 12.5 mg Physical Exam - Constitutional Appears: Well - Head Exam Head Exam: ATRAUMATIC, NORMAL INSPECTION, NORMOCEPHALIC - Eye Exam Eye Exam: EOMI, Normal appearance Pupil Exam: NORMAL ACCOMODATION, PERRL - ENT Exam ENT Exam: Mucous Membranes Moist, Normal Exam - Neck Exam Neck exam: Positive for: Normal Inspection - Respiratory Exam Respiratory Exam: Clear to Auscultation Bilateral, NORMAL BREATHING PATTERN - Cardiovascular Exam Cardiovascular Exam: REGULAR RHYTHM - GI/Abdominal Exam GI & Abdominal Exam: Normal Bowel Sounds - Rectal Exam Rectal Exam: NORMAL INSPECTION - Exam External exam: NORMAL EXTERNAL EXAM - Extremities Exam Extremities exam: Positive for: normal inspection - Back Exam Back exam: NORMAL INSPECTION Additional comments: obese, muscle strength 3-/5 - Neurological Exam Neurological exam: Alert, CN II-XII Intact, Reflexes Normal - Psychiatric Exam Psychiatric exam: Anxious, Normal Mood - Skin Skin Exam: Dry, Normal Color, Warm Results - Vital Signs Recent Vital Signs: Last Vital Signs Temp Pulse 80 12/22/18 18:05 Resp 20 12/21/18 22:10 BP 110/60 12/22/18 18:05 Pulse Ox 93 L 12/22/18 08:40 - Labs Result Diagrams: 12/22/18 06:25 Labs: Laboratory Results - last 24 hr 12/22/18 12/22/18 06:25 06:25 PT 47.3 H* INR 4.2 Sodium 140 Potassium 4.4 Chloride 104 Carbon Dioxide 26 Anion Gap 14 BUN 42 H Creatinine 1.6 H Est GFR ( Amer) 40 Est GFR (Non-Af Amer) 33 Random Glucose 93 Calcium 9.4 Assessment & Plan (1) Debilitated patient Assessment and Plan: NSTEMI, obesity, PVD, COPD, mutliple medical problems admitted to acute rehab f or physical, occupational rec therapy . Written overall plan of care. Thank you for the referral. Status: Acute (2) Acute hypoxemic respiratory failure Status: Acute Priority: High (3) Acute pulmonary edema Status: Acute Priority: High (4) Anemia Status: Acute Priority: High (5) CHF exacerbation Status: Acute Priority: High (6) Coagulopathy Status: Acute (7) DVT prophylaxis Status: Acute
[2018-12-23 07:22] LABS: INR 3.7
[2018-12-23 07:24] LABS: PROTHROMBIN TIME 41.8 Seconds (9.8-13.1)
[2018-12-23] MEDS: Albuterol-Ipratrop 3 mg / 0.5 (3 ml) UD INH SCH ×4 (07:27→19:50)
--- NOTE | 2018-12-23 09:22 | CP.PCM.PN ---
Subjective - Date & Time of Evaluation Date of Evaluation: 12/23/18 Time of Evaluation: 09:22 - Subjective Subjective: Celestine Calhoun DO PGY1 - Cardiology Note for Dr. Sutton Seen and examined during PT today Patient tolerating well No complaints offered. Objective - Vital Signs/Intake and Output Vital Signs (last 24 hours): Temp Pulse Resp BP Pulse Ox 97.9 F 84 18 114/56 L 93 L 12/23/18 08:47 12/23/18 08:51 12/23/18 08:47 12/23/18 08:51 12/23/18 08:47 - Medications Medications: Current Medications Albuterol Sulfate (Albuterol 0.083% Inhal Anastacia (2.5 Mg/3 Ml) Ud) 2.5 mg INH RQ4 PRN PRN Reason: Shortness of Breath Albuterol/Ipratropium (Duoneb 3 Mg/0.5 Mg (3 Ml) Ud) 3 ml INH RQID [facility] Last Admin: 12/23/18 07:27 Dose: 3 ml Atorvastatin Calcium (Lipitor) 40 mg PO HS [facility] Famotidine (Pepcid) 20 mg PO BID [facility] Last Admin: 12/23/18 08:51 Dose: 20 mg Micafungin Sodium 100 mg/ (Sodium Chloride) 100 mls @ 100 mls/hr IVPB DAILY [facility] Last Admin: 12/23/18 08:51 Dose: 100 mls/hr Lisinopril (Zestril) 2.5 mg PO DAILY [facility] Last Admin: 12/23/18 08:51 Dose: 2.5 mg Metoprolol Tartrate (Lopressor) 12.5 mg PO Q12 [facility] Last Admin: 12/23/18 08:49 Dose: 12.5 mg - Labs Labs: 12/22/18 06:25 PT 41.8 Seconds (9.8-13.1) H* 12/23/18 06:20 INR 3.7 12/23/18 06:20 - Constitutional Appears: Well, Non-toxic, No Acute Distress - Head Exam Head Exam: ATRAUMATIC, NORMOCEPHALIC - Eye Exam Eye Exam: EOMI, Normal appearance, PERRL - ENT Exam ENT Exam: Mucous Membranes Moist - Respiratory Exam Respiratory Exam: Decreased Breath Sounds, Clear to Auscultation Bilateral - Cardiovascular Exam Cardiovascular Exam: RRR, +S1, +S2 - GI/Abdominal Exam GI & Abdominal Exam: Soft. absent: Tenderness Additional comments: Obese - Extremities Exam Extremities exam: Positive for: pedal pulses present. Negative for: pedal edema - Neurological Exam Neurological exam: Alert, Oriented x3 - Psychiatric Exam Psychiatric exam: Normal Affect, Normal Mood - Skin Skin Exam: Dry, Intact, Warm Additional comments: Bruises in lower neck/ upper chest Assessment and Plan (1) NSTEMI (non-ST elevated myocardial infarction) Status: Suspected (2) COPD (chronic obstructive pulmonary disease) Status: Suspected (3) Respiratory failure with hypoxia and hypercapnia Status: Resolved (4) Sepsis Status: Resolved (5) CAP (community acquired pneumonia) Status: Resolved - Assessment and Plan (Free Text) Plan: Will plan for ischemic evaluation once patient is further stabilized. Continue: Zestril 2.5 Daily Toprol 12.5 Q12 Lipitor 40 Daily Hold Warfarin 7.5 Daily INR 3.7 Goal 2.5-3.[address] Sutton
--- NOTE | 2018-12-23 11:22 | CP.PCM.CON ---
History of Present Illness - History of Present Illness History of Present Illness: This 58-year-old female was originally admitted to the intensive care unit because of influenza with pneumonia and respiratory failure. She is a known cigarette smoker who probably has underlying chronic obstructive pulmonary disease as well and also developed acute renal failure during her intensive care stay. She was found to have influenza positive nasal swab and also had bilateral pulmonary infiltrates. Her past medical history did include aortic valve replacement as well as hypertension and CHF and as mentioned above COPD. She also underwent bariatric surgery because of morbid obesity in the remote past. Her intensive care hospitalization was rather prolonged but she did respond favorably to treatment and was ultimately discharged from the hospital to continue rehab because of severe generalized debilitation. Past Patient History - Past Medical History & Family History Past Medical History?: Yes - Past Social History Smoking Status: Heavy Smoker > 10 Cigarettes Daily Chewing Tobacco Use: No Cigar Use: No Alcohol: Social Drugs: Denies Home Situation {Lives}: With Family - CARDIAC Hx Cardiac Disorders: Yes Hx Congestive Heart Failure: Yes Hx Heart Attack: Yes Hx Hypertension: Yes Other/Comment: AVR. Valvular Heart Disease;. Myocardial Ischemia. NSTEMI - PULMONARY Hx Chronic Obstructive Pulmonary Disease (COPD): Yes Hx Pneumonia: Yes (Influenza with bronchopneumonia) Other/Comment: Influenza A;. Acute Respiratory Failure - NEUROLOGICAL Hx Neurological Disorder: No - HEENT Hx HEENT Problems: Yes Other/Comment: uses eyeglasses-farsighted - RENAL Hx Chronic Kidney Disease: No Hx Dialysis: Yes (had hemodialysis when in ICU;no HD at present) Hx Renal Failure: Yes - ENDOCRINE/METABOLIC Hx Endocrine Disorders: Yes Other/Comment: Morbid Obesity - HEMATOLOGICAL/ONCOLOGICAL Hx Anemia: Yes Hx Human Immunodeficiency Virus (HIV): No Other/Comment: Coagulopathy;. leucocytosis;. sepsis - INTEGUMENTARY Hx Dermatological Problems: No - MUSCULOSKELETAL/RHEUMATOLOGICAL Hx Falls: Yes - GASTROINTESTINAL Hx Gastrointestinal Disorders: Yes Other/Comment: gastric bypass-gastric band. >morbid obesity;. GI bleed - GENITOURINARY/GYNECOLOGICAL Hx Genitourinary Disorders: No - PSYCHIATRIC Hx Psychophysiologic Disorder: No Hx Substance Use: No - SURGICAL HISTORY Hx Surgeries: Yes Hx Gastric Bypass Surgery: Yes Hx Valve Replacement: Yes (aortic) - ANESTHESIA Hx Anesthesia: Yes Hx Anesthesia Reactions: No Hx Malignant Hyperthermia: No Meds Allergies/Adverse Reactions: Allergies Allergy/AdvReac Type Severity Reaction Status Date / Time No Known Allergies Allergy Verified 11/25/18 20:03 - Medications Medications: Current Medications Albuterol Sulfate (Albuterol 0.083% Inhal Anastacia (2.5 Mg/3 Ml) Ud) 2.5 mg INH RQ4 PRN PRN Reason: Shortness of Breath Albuterol/Ipratropium (Duoneb 3 Mg/0.5 Mg (3 Ml) Ud) 3 ml INH RQID [facility] Last Admin: 12/23/18 11:08 Dose: Not Given Atorvastatin Calcium (Lipitor) 40 mg PO HS [facility] Famotidine (Pepcid) 20 mg PO BID [facility] Last Admin: 12/23/18 08:51 Dose: 20 mg Micafungin Sodium 100 mg/ (Sodium Chloride) 100 mls @ 100 mls/hr IVPB DAILY [facility] Last Admin: 12/23/18 08:51 Dose: 100 mls/hr Lisinopril (Zestril) 2.5 mg PO DAILY [facility] Last Admin: 12/23/18 08:51 Dose: 2.5 mg Metoprolol Tartrate (Lopressor) 12.5 mg PO Q12 [facility] Last Admin: 12/23/18 08:49 Dose: 12.5 mg Warfarin Sodium (Coumadin) 5 mg PO QD5 [facility]; Protocol Stop: 12/23/18 17:01 Physical Exam - Additional Findings Additional findings: Seated in a bariatric wheelchair at bedside in no acute distress. Awake and alert and cooperative with the examination. Answering all questions appropriately. Pharynx is pink and mucous membranes are moist. Neck is supple and trachea is midline. No palpable lymphadenopathy. Resolving ecchymosis over the anterior chest wall. Breath sounds are diminished bilaterally with scattered dry rales in the lower lobes posteriorly. No audible wheezing or bronchial breath sounds. Few scattered rhonchi in dependent zones. Heart sounds are markedly distant and the rhythm is regular. No dependent edema, no cyanosis, no calf tenderness. Results - Vital Signs Recent Vital Signs: Last Vital Signs Temp 97.9 F 12/23/18 08:47 Pulse 84 12/23/18 08:51 Resp 18 12/23/18 08:47 BP 114/56 L 12/23/18 08:51 Pulse Ox 93 L 12/23/18 08:47 - Labs Result Diagrams: 12/22/18 06:25 Labs: Laboratory Results - last 24 hr 12/23/18 06:20 PT 41.8 H* INR 3.7 Assessment & Plan (1) Pneumonia and influenza Status: Resolved Priority: High (2) Acute hypoxemic respiratory failure Status: Resolved Priority: High (3) COPD (chronic obstructive pulmonary disease) Status: Suspected Priority: High - Assessment and Plan (Free Text) Plan: Continue current medical and aerosol therapy. Patient will require pulmonary function study when clinically improved. Will request overnight recorded pulse oximetry to check for episodes of desaturation. SPO2 is adequate on room air at rest therefore supplemental O2 can be used on an as-needed basis. - Date & Time Date: 12/23/18 Time: 11:24
--- NOTE | 2018-12-23 12:06 | PCM.PSYTMC ---
Acute Rehab Team Conference - - Vital Signs: Vital Signs (Last 8 Hours): Vital Signs 12/23/18 12/23/18 12/23/18 08:43 08:47 08:49 Temperature 97.9 F Pulse Rate 92 H 84 84 Respiratory 18 Rate Blood Pressure 114/56 L 114/56 L O2 Sat by Pulse 94 L 93 L Oximetry 12/23/18 08:51 Temperature Pulse Rate 84 Respiratory Rate Blood Pressure 114/56 L O2 Sat by Pulse Oximetry Pain: 0 Physical Therapy - Bed Mobility Bed Mobility: Verbal Cues, Maximum Assistance - Transfers Wheelchair to Mat: Verbal Cues, Minimal Assistance Sit to Stand: Verbal Cues, Minimal Assistance - Ambulation Level of Assistance: Verbal Cues, Contact Guard Distance (ft.): 45 Assistive Devices: Rolling Walker - Stair Negotiation Stairs: Level of Assistance: Not Tested - Standing Balance Static Stand: Contact Guard Assist - Pain Pain (assessed during therapy session): 0 - Insight/Carryover Insight/Carryover: Good - Patient/Family Education Comment: Energy conservation, safety, POC - Assessment/Plan Assessment: Ms. Solis presents with significant general deconditioning characterized by impaired BLE strength, sitting/standing balance, and endurance resulting in decreased (I) with functional mobility skills. Pt requires max A for bed mobility, Santosh for transfers, and CGA for short distance ambulation with RW. Pt PLOF is (I) without AD. Pt will benefit from skilled PT inteventions 5-6xs/week to address deficits, reduce fall risk, and maximize functional independence. Recommend home with home PT and assist from /sons PRN following acute rehab stay. [ End ] - Goals Timeframe: 3 weeks Goals: Sit < > supine with supervision. All functional transfers with RW and supervision. Pt will ambulate 200 ft with RW and supervision. Pt will ascend/descend 6 stairs with B handrails and supervision - Provider Physical Therapist:: Adwoa Herrera License Number:: [id number] Occupational Therapy - Arousal/Attention/Orientation Level of Consciousness: Awake, Alert Patient Orientation: Person, Place, Time - ADL/IADL Self Feeding: Set-up Help Grooming: Set-up Help Dressing-Upper Ext: Supervision Dressing-Lower Ext: Minimal Assistance - Sitting Balance Static Sitting: Independent without upper extremity support Dynamic Sitting: Reaches out of base of support, Reaches within base of support, Requires supervision - Transfers Wheelchair to Bed Transfers: Minimal Assistance Toilet Transfers: Minimal Assistance Comment: tub transfer to be assesed - Wheelchair Management Level of Assistance: Minimal Assistance Distance (ft.): 50 - Upper Extremity Status Right Upper Extremity Comment: WFLS Left Upper Extremity Comment: WFLS - Pain Pain (assessed during therapy session): 0 - Insight/Carryover Insight/Carryover: Good - Patient/Family Education Comment: Cardiac precautions, energy conservation/fall prevention techniques, role of OT, use of call cesar, therapy schedule - Assessment/Plan Assessment: PRECAUTIONS:FALLS,CARDIAC. patient is a 58 yo female presenting to [facility] 6N general deconditioning. patient demoes impaired B UE/LE strength, sitting/standing balance, and endurance with occasional SOB and 02 desaturation. These defecits impact pt's ability to complete, adls, functional transfers/mobility and iadls safely and effectively. skilled OT inteventions are highly warranted 5-6xs/week to address deficits, reduce fall risk, and maximize functional independence. Recommend home with intermittent supervision/assist. - Goals Timeframe: 2 weeks Comment: mod I functional transfers. mod I toileting. mod I ub adls. mod I LB adls. Mod I shower/tub transfer. mod I light homemaking tasks - Provider Occupational Therapist:: Kristi Soni License Number: [id number] Recreational Therapy - Participation Participation: Participates in Individual and/or Group Sessions - Attendance Attendance: 3-5 times per week - Activities Leisure Activities: Television - Socialization Level of Socialization: Initiates/interacts freely with care givers and peer - Assessment Assessment/Plan: Pt was oriented to the benefits and purpose of participating in recreation therapy sessions offered throughout stay on unit. Pt would benefit from participating in recreation therapy sessions to decrease anxiety level and improve activity tolerance level. Will encourage pt to participate in recreation therapy sessions throughout stay on unit. Problems Currently Limiting Participation: anxiety, decrease leisure awareness level, decrease activity tolerance level Goals and Time Frame: Pt will be encouraged to participate in 1:1 and group recreation therapy sessions to improve direction following, leisure awareness level, arousal level, and diversion from anxiety level by date of discharge. - Provider Therapist: Paula Martines Nutrition - Current Diet Current Diet/Supplement/Feedings: 2 gram Na diet - Appetite Percent Meal Consumed: 75-100% - Assessment/Goals/Time Frame Assessments/Goals/Time Frame: To follow as per nutrition protocol - Provider Provider: Adrianna León Case Management - Psychosocial Assessment Support Systems: Good Solis (son) - [phone] Psychological Interventions/Needs: Patient is AAO and able to verbalize needs. Tristanian is patient's second language, but she is able to understand and make her needs known in Tristanian. Discharge Concerns: Patient has approximately 6 steps to enter the home and another flight of stairs if she wants to go up to her second floor bedroom. Patient, however, reports that she has all that she needs on the first floor as well. Patient/Family Meeting: CM met with patient and rehab team. Intervention/Goal/Outcome: 1. Goal: Intermittent supervision 2. Plan: home with VNS 3. find VNS agency that accepts pt's insurance 4. DME needs 5. f/u appts 6. continued emotional support - Discharge Plan Discharge Plan: Home with services Home Services: tbd - Provider Provider: Renuka Pace License Number: [id number] Rehabilitation Plan - Treatment Plan Treatment Plan: Physical Therapy, Occupational Therapy, Dietary, Patient/Family Education - Recommendation Recommendation: Physical Therapy, Occupational Therapy, Dietary, Patient/Family Education - Discharge Plan Discharge to: Home (id home )
--- NOTE | 2018-12-23 13:05 | CP.PCM.CON ---
History of Present Illness - History of Present Illness History of Present Illness: 58 yo female was admitted to [facility] with acute influnza A and Pneumonia complicated by NSTEMI respiratory failure pneumonia GI bleed and renal failure was eventually extubated after a stormy course cultures sputum + Yeast treated empirically for HCAP and did well IV antibiotics d/c'd after 14 days Now in TCU for PT/OT PMH AVR, Morbid Obesity , JUAN PABLO NKDA FH - N/C SH + smoker Review of Systems - Review of Systems All systems: reviewed and no additional remarkable complaints except - Constitutional Constitutional: As Per HPI - EENT Eyes: absent: As Per HPI, Blind Spots, Blurred Vision, Change in Vision, Decreased Night Vision, Diplopia, Discharge, Dry Eye, Exophthalmos, Floaters, Irritation, Itchy Eyes, Loss of Peripheral Vision, Pain, Photophobia, Requires Corrective Lenses, Sees Flashes, Spots in Vision, Tunnel Vision, Other Visual Disturbances, Loss of Vision, Other Nose/Mouth/Throat: absent: As Per HPI, Epistaxis, Nasal Congestion, Nasal Discharge, Nasal Obstruction, Nasal Trauma, Nose Pain, Post Nasal Drip, Sinus Pain, Sinus Pressure, Bleeding Gums, Change in Voice, Dental Pain, Dry Mouth, Dysphagia, Halitosis, Hoarsness, Lip Swelling, Mouth Lesions, Mouth Pain, Odynophagia, Sore Throat, Throat Swelling, Tongue Swelling, Facial Pain, Neck Pain, Neck Mass, Other - Breasts Breasts: absent: As Per HPI, Change in Shape, Mass, Pain, Nipple Discharge, Nipple Inversion, Skin Changes, Swelling, Other - Cardiovascular Cardiovascular: As Per HPI - Respiratory Respiratory: As Per HPI - Gastrointestinal Gastrointestinal: As Per HPI - Genitourinary Genitourinary: absent: As Per HPI, Change in Urinary Stream, Difficulty Urinat ing, Dysuria, Flank Pain, Hematuria, Pyuria, Nocturia, Urinary Incontinence, Urinary Frequency, Urinary Hesitance, Urinary Urgency, Voiding Freq/Small Amts, Freq UTI, Hx Renal/Bladder Calculi, Hx /Renal Surgery, Bladder Distension, Other - Reproductive: Female Reproductive:Female: absent: As Per HPI, Amenorrhea, Amenorrhea/ Control, Currently Menstual, Cycle <21 Days, Cycle >35 Days, Cycle Variable, Menses 1-7 Days, Menses >/= 8 Days, Menses Variable, Cycle > 4 Weeks Between, No Menses for 6 Months, Heavy Menses, Light Menses, Normal Menses, Spotting Between Cycles, S/P Hysterectomy, Menopausal, Post Menopausal, Premenarche, Abnormal Vaginal Bleeding, Dysmenorrhea, Dyspareunia, Genital Lesions, Genital Pruritis, Pelvic Pain, Prolapse Symptoms, Sexual Dysfunction, Vaginal Discharge, Vaginal Dryness, Vaginal Odor, Vaginal Pruritis, Other - Menstruation Menstruation: absent: As Per HPI, Amenorrhea, Amenorrhea/ Control, Currently Menstual, Cycle <21 Days, Cycle >35 Days, Cycle Variable, Menses 1-7 D ays, Menses >/= 8 Days, Menses Variable, Cycle > 4 Weeks Between, No Menses for 6 Months, Heavy Menses, Light Menses, Normal Menses, Spotting Between Cycles, S/P Hysterectomy, Menopausal, Post Menopausal, Premenarche, Abnormal Vaginal Bleeding, Dysmenorrhea, Other - Musculoskeletal Musculoskeletal: absent: As Per HPI, Abnormal Gait, Arthralgias, Atrophy, Back Pain, Deformity, Joint Swelling, Limited Range of Motion, Loss of Height, Muscle Cramps, Muscle Weakness, Myalgias, Neck Pain, Numbness, Radiating Pain into Limb, Stiffness, Tingling, Other - Integumentary Integumentary: As Per HPI - Neurological Neurological: absent: As Per HPI, Abnormal Gait, Abnormal Hearing, Abnormal Movements, Abnormal Speech, Behavioral Changes, Burning Sensations, Confusion, Convulsions, Disequilibrium, Dizziness, Numbness, Focal Weakness, Frequent Falls, Headaches, Lack of Coordination, Loss of Vision, Memory Loss, Paresthesias, Radicular Pain, Restless Legs, Sensory Deficit, Syncope, Tingling, Tremor, Vertigo, Weakness, Other Visual Disturbances, Other - Psychiatric Psychiatric: absent: As Per HPI, Abnormal Sleep Pattern, Anhedonia, Anxiety, Auditory Hallucinations, Behavioral Changes, Change in Appetite, Change in Libido, Confusion, Depression, Difficulty Concentrating, Hallucinations, Homicidal Ideation, Hopelessness, Irritability, Memory Loss, Mood Swings, Panic Attacks, Paranoia, Suicidal Ideation, Visual Hallucinations, Tactile Halluci nations, Other - Endocrine Endocrine: absent: As Per HPI, Change in Body Appearance, Change in Libido, Cold Intolorance, Deepening of Voice, Excessive Sweating, Fatigue, Flushing, Heat Intolorance, Increase in Ring/Shoe/Hat Size, Palpitations, Polydipsia, Polyp hagia, Polyuria, Other - Hematologic/Lymphatic Hematologic: Easy Bleeding, Easy Bruising Review of Systems - Constitutional Constitutional: As Per HPI - EENT Eyes: absent: As Per HPI, Blind Spots, Blurred Vision, Change in Vision, Decreased Night Vision, Diplopia, Discharge, Dry Eye, Exophthalmos, Floaters, Irritation, Itchy Eyes, Loss of Peripheral Vision, Pain, Photophobia, Requires Corrective Lenses, Sees Flashes, Spots in Vision, Tunnel Vision, Other Visual Disturbances, Loss of Vision, Other Ears: absent: As Per HPI, Decreased Hearing, Ear Discharge, Ear Pain, Tinnitus, Abnormal Hearing, Disequilibrium, Dizziness, Other Nose/Mouth/Throat: absent: As Per HPI, Epistaxis, Nasal Congestion, Nasal Discharge, Nasal Obstruction, Nasal Trauma, Nose Pain, Post Nasal Drip, Sinus Pain, Sinus Pressure, Bleeding Gums, Change in Voice, Dental Pain, Dry Mouth, Dysphagia, Halitosis, Hoarsness, Lip Swelling, Mouth Lesions, Mouth Pain, Odynophagia, Sore Throat, Throat Swelling, Tongue Swelling, Facial Pain, Neck Pain, Neck Mass, Other - Breasts Breasts: absent: As Per HPI, Change in Shape, Mass, Pain, Nipple Discharge, Nipple Inversion, Skin Changes, Swelling, Other - Cardiovascular Cardiovascular: absent: As Per HPI, Acrocyanosis, Chest Pain, Chest Pain at Rest, Chest Pain with Activity, Claudication, Diaphoresis, Dyspnea, Dyspnea on Exertion, Edema, Irregular Heart Rhythm, Pain Radiating to Arm/Neck/Jaw, Leg Edema, Leg Ulcers, Lightheadedness, Orthopnea, Palpitations, Paroxysmal Nocturnal Dyspnea, Pedal Edema, Radiating Pain, Rapid Heart Rate, Slow Heart Rate, Syncope, Other - Respiratory Respiratory: Cough, Dyspnea. absent: Hemoptysis - Gastrointestinal Gastrointestinal: absent: As Per HPI, Abdominal Pain, Belching, Bloating, Change in Bowel Habits, Change in Stool Character, Coffee Ground Emesis, Constipation, Cramping, Diarrhea, Dyspepsia, Dysphagia, Early Satiety, Excessive Flatus, Fecal Incontinence, Heartburn, Hematemesis, Hematochezia, Loose Stools, Melena, Nausea, Odynophagia, Temesmus, Vomiting, Other - Genitourinary Genitourinary: absent: As Per HPI, Change in Urinary Stream, Difficulty Urinating, Dysuria, Flank Pain, Hematuria, Pyuria, Nocturia, Urinary Incontinence, Urinary Frequency, Urinary Hesitance, Urinary Urgency, Voiding Freq/Small Amts, Freq UTI, Hx Renal/Bladder Calculi, Hx /Renal Surgery, Bladder Distension, Other - Reproductive: Female Reproductive:Female: absent: As Per HPI, Amenorrhea, Amenorrhea/ Control, Currently Menstual, Cycle <21 Days, Cycle >35 Days, Cycle Variable, Menses 1-7 Days, Menses >/= 8 Days, Menses Variable, Cycle > 4 Weeks Between, No Menses for 6 Months, Heavy Menses, Light Menses, Normal Menses, Spotting Between Cycles, S/P Hysterectomy, Menopausal, Post Menopausal, Premenarche, Abnormal Vaginal Bleeding, Dysmenorrhea, Dyspareunia, Genital Lesions, Genital Pruritis, Pelvic Pain, Prolapse Symptoms, Sexual Dysfunction, Vaginal Discharge, Vaginal Dryness, Vaginal Odor, Vaginal Pruritis, Other - Menstruation Menstruation: absent: As Per HPI, Amenorrhea, Amenorrhea/ Control, Currently Menstual, Cycle <21 Days, Cycle >35 Days, Cycle Variable, Menses 1-7 Days, Menses >/= 8 Days, Menses Variable, Cycle > 4 Weeks Between, No Menses for 6 Months, Heavy Menses, Light Menses, Normal Menses, Spotting Between Cycles, S/P Hysterectomy, Menopausal, Post Menopausal, Premenarche, Abnormal Vaginal Bleeding, Dysmenorrhea, Other - Musculoskeletal Musculoskeletal: absent: As Per HPI, Abnormal Gait, Arthralgias, Atrophy, Back Pain, Deformity, Joint Swelling, Limited Range of Motion, Loss of Height, Muscle Cramps, Muscle Weakness, Myalgias, Neck Pain, Numbness, Radiating Pain into Limb, Stiffness, Tingling, Other - Integumentary Integumentary: absent: As Per HPI, Acne, Alopecia, Bleeding Lesions, Change in Hair, Change in Nails, Change in Pigmentation, Changing Lesions, Dry Skin, Erythema, Furuncle, Hirsutism, Lesions, New Lesions, Non-Healing Lesions, Photosensitivity, Pruritus, Rash, Skin Pain, Skin Ulcer, Sores, Striae, Swelling, Unusual Bruising, Wounds, Jaundice, Other - Neurological Neurological: absent: As Per HPI, Abnormal Gait, Abnormal Hearing, Abnormal Movements, Abnormal Speech, Behavioral Changes, Burning Sensations, Confusion, Convulsions, Disequilibrium, Dizziness, Numbness, Focal Weakness, Frequent Falls, Headaches, Lack of Coordination, Loss of Vision, Memory Loss, Paresthesias, Radicular Pain, Restless Legs, Sensory Deficit, Syncope, Tingling, Tremor, Vertigo, Weakness, Other Visual Disturbances, Other - Psychiatric Psychiatric: absent: As Per HPI, Abnormal Sleep Pattern, Anhedonia, Anxiety, Auditory Hallucinations, Behavioral Changes, Change in Appetite, Change in Libido, Confusion, Depression, Difficulty Concentrating, Hallucinations, Homicidal Ideation, Hopelessness, Irritability, Memory Loss, Mood Swings, Panic Attacks, Paranoia, Suicidal Ideation, Visual Hallucinations, Tactile Hallucinations, Other - Endocrine Endocrine: absent: As Per HPI, Change in Body Appearance, Change in Libido, Cold Intolorance, Deepening of Voice, Excessive Sweating, Fatigue, Flushing, Heat Intolorance, Increase in Ring/Shoe/Hat Size, Palpitations, Polydipsia, Polyphagia, Polyuria, Other - Hematologic/Lymphatic Hematologic: absent: As Per HPI, Easy Bleeding, Easy Bruising, Lymphadenopathy, Other Past Patient History - Past Medical History & Family History Past Medical History?: Yes - Past Social History Smoking Status: Heavy Smoker > 10 Cigarettes Daily Chewing Tobacco Use: No Cigar Use: No Alcohol: Social Drugs: Denies Home Situation {Lives}: With Family - CARDIAC Hx Cardiac Disorders: Yes Hx Congestive Heart Failure: Yes Hx Heart Attack: Yes Hx Hypertension: Yes Other/Comment: AVR. Valvular Heart Disease;. Myocardial Ischemia. NSTEMI - PULMONARY Hx Chronic Obstructive Pulmonary Disease (COPD): Yes Hx Pneumonia: Yes (Influenza with bronchopneumonia) Other/Comment: Influenza A;. Acute Respiratory Failure - NEUROLOGICAL Hx Neurological Disorder: No - HEENT Hx HEENT Problems: Yes Other/Comment: uses eyeglasses-farsighted - RENAL Hx Chronic Kidney Disease: No Hx Dialysis: Yes (had hemodialysis when in ICU;no HD at present) Hx Renal Failure: Yes - ENDOCRINE/METABOLIC Hx Endocrine Disorders: Yes Other/Comment: Morbid Obesity - HEMATOLOGICAL/ONCOLOGICAL Hx Anemia: Yes Hx Human Immunodeficiency Virus (HIV): No Other/Comment: Coagulopathy;. leucocytosis;. sepsis - INTEGUMENTARY Hx Dermatological Problems: No - MUSCULOSKELETAL/RHEUMATOLOGICAL Hx Falls: Yes - GASTROINTESTINAL Hx Gastrointestinal Disorders: Yes Other/Comment: gastric bypass-gastric band. >morbid obesity;. GI bleed - GENITOURINARY/GYNECOLOGICAL Hx Genitourinary Disorders: No - PSYCHIATRIC Hx Psychophysiologic Disorder: No Hx Substance Use: No - SURGICAL HISTORY Hx Surgeries: Yes Hx Gastric Bypass Surgery: Yes Hx Valve Replacement: Yes (aortic) - ANESTHESIA Hx Anesthesia: Yes Hx Anesthesia Reactions: No Hx Malignant Hyperthermia: No Meds Allergies/Adverse Reactions: Allergies Allergy/AdvReac Type Severity Reaction Status Date / Time No Known Allergies Allergy Verified 11/25/18 20:03 - Medications Medications: Current Medications Albuterol Sulfate (Albuterol 0.083% Inhal Anastacia (2.5 Mg/3 Ml) Ud) 2.5 mg INH RQ4 PRN PRN Reason: Shortness of Breath Albuterol/Ipratropium (Duoneb 3 Mg/0.5 Mg (3 Ml) Ud) 3 ml INH RQID [facility] Last Admin: 12/23/18 11:08 Dose: Not Given Atorvastatin Calcium (Lipitor) 40 mg PO [facility] Famotidine (Pepcid) 20 mg PO BID [facility] Last Admin: 12/23/18 08:51 Dose: 20 mg Micafungin Sodium 100 mg/ (Sodium Chloride) 100 mls @ 100 mls/hr IVPB DAILY [facility] Last Admin: 12/23/18 08:51 Dose: 100 mls/hr Lisinopril (Zestril) 2.5 mg PO DAILY [facility] Last Admin: 12/23/18 08:51 Dose: 2.5 mg Metoprolol Tartrate (Lopressor) 12.5 mg PO Q12 [facility] Last Admin: 12/23/18 08:49 Dose: 12.5 mg Warfarin Sodium (Coumadin) 5 mg PO QD5 [facility]; Protocol Stop: 12/23/18 17:01 Physical Exam - Constitutional Appears: Non-toxic, Chronically Ill - Head Exam Head Exam: ATRAUMATIC, NORMAL INSPECTION, NORMOCEPHALIC - Eye Exam Eye Exam: EOMI, PERRL. absent: Scleral icterus - ENT Exam ENT Exam: Mucous Membranes Dry, Normal External Ear Exam, Normal Oropharynx - Neck Exam Neck exam: Negative for: Lymphadenopathy - Respiratory Exam Respiratory Exam: Decreased Breath Sounds, Rhonchi - Cardiovascular Exam Cardiovascular Exam: REGULAR RHYTHM, +S1, +S2 - GI/Abdominal Exam GI & Abdominal Exam: Diminished Bowel Sounds, Distended, Soft. absent: Rebound, Rigid, Tenderness - Rectal Exam Rectal Exam: Deferred - Exam Exam: NORMAL INSPECTION - Extremities Exam Extremities exam: Positive for: pedal edema, pedal pulses present. Negative for: calf tenderness, tenderness - Back Exam Back exam: absent: CVA tenderness (L), CVA tenderness (R), paraspinal tenderness - Neurological Exam Neurological exam: Alert, CN II-XII Intact, Oriented x3, Reflexes Normal - Psychiatric Exam Psychiatric exam: Normal Mood - Skin Skin Exam: Dry, Intact Results - Vital Signs Recent Vital Signs: Last Vital Signs Temp 97.9 F 12/23/18 08:47 Pulse 84 12/23/18 08:51 Resp 18 12/23/18 08:47 BP 114/56 L 12/23/18 08:51 Pulse Ox 93 L 12/23/18 08:47 - Labs Result Diagrams: 12/22/18 06:25 Labs: Laboratory Results - last 24 hr 12/23/18 06:20 PT 41.8 H* INR 3.7 Assessment & Plan (1) Debilitated patient Status: Acute (2) CHF exacerbation Status: Acute Priority: High (3) NSTEMI (non-ST elevated myocardial infarction) Status: Resolved Priority: High (4) Pneumonia and influenza Status: Resolved Priority: High (5) Respiratory failure with hypoxia and hypercapnia Status: Resolved Priority: High - Assessment and Plan (Free Text) Assessment: improving off antibiotics remains afebrile no new positive cultures cont supportive rx will reculture if pt spikes or resp status changes
--- NOTE | 2018-12-23 13:18 | CP.PCM.PN ---
Subjective - Date & Time of Evaluation Date of Evaluation: 12/23/18 Time of Evaluation: 13:18 - Subjective Subjective: Patient in seating in chair in good spirit no new c/o Objective - Vital Signs/Intake and Output Vital Signs (last 24 hours): Temp Pulse Resp BP Pulse Ox 97.9 F 84 18 114/56 L 93 L 12/23/18 08:47 12/23/18 08:51 12/23/18 08:47 12/23/18 08:51 12/23/18 08:47 - Medications Medications: Current Medications Albuterol Sulfate (Albuterol 0.083% Inhal Anastacia (2.5 Mg/3 Ml) Ud) 2.5 mg INH RQ4 PRN PRN Reason: Shortness of Breath Albuterol/Ipratropium (Duoneb 3 Mg/0.5 Mg (3 Ml) Ud) 3 ml INH RQID [facility] Last Admin: 12/23/18 11:08 Dose: Not Given Atorvastatin Calcium (Lipitor) 40 mg PO [facility] Famotidine (Pepcid) 20 mg PO BID [facility] Last Admin: 12/23/18 08:51 Dose: 20 mg Micafungin Sodium 100 mg/ (Sodium Chloride) 100 mls @ 100 mls/hr IVPB DAILY [facility] Last Admin: 12/23/18 08:51 Dose: 100 mls/hr Lisinopril (Zestril) 2.5 mg PO DAILY [facility] Last Admin: 12/23/18 08:51 Dose: 2.5 mg Metoprolol Tartrate (Lopressor) 12.5 mg PO Q12 [facility] Last Admin: 12/23/18 08:49 Dose: 12.5 mg Warfarin Sodium (Coumadin) 5 mg PO QD5 [facility]; Protocol Stop: 12/23/18 17:01 - Labs Labs: 12/22/18 06:25 PT 41.8 Seconds (9.8-13.1) H* 12/23/18 06:20 INR 3.7 12/23/18 06:20 - Constitutional Appears: Chronically Ill - Head Exam Head Exam: ATRAUMATIC, NORMAL INSPECTION, NORMOCEPHALIC - Eye Exam Eye Exam: Normal appearance - ENT Exam ENT Exam: Normal Exam - Neck Exam Neck Exam: Full ROM - Respiratory Exam Respiratory Exam: Decreased Breath Sounds - Cardiovascular Exam Cardiovascular Exam: REGULAR RHYTHM, +S1, +S2 - GI/Abdominal Exam GI & Abdominal Exam: Soft, Normal Bowel Sounds - Extremities Exam Extremities Exam: Normal Inspection - Neurological Exam Neurological Exam: Abnormal Gait, Alert, Awake, CN II-XII Intact, Oriented x3 - Psychiatric Exam Psychiatric exam: Normal Affect - Skin Skin Exam: Pallor Assessment and Plan (1) DVT prophylaxis Status: Acute (2) Morbid obesity Status: Chronic (3) Myocardial ischemia Status: Resolved (4) NSTEMI (non-ST elevated myocardial infarction) Status: Resolved (5) Pneumonia and influenza Status: Resolved (6) Respiratory failure with hypoxia and hypercapnia Status: Resolved (7) Sepsis Status: Resolved (8) History of aortic valve replacement Status: Chronic (9) Morbid obesity Status: Chronic (10) COPD (chronic obstructive pulmonary disease) Status: Suspected (11) Debilitated patient Status: Acute - Assessment and Plan (Free Text) Plan: Continue present rx.
--- NOTE | 2018-12-23 18:01 | CP.PCM.PN ---
Subjective - Date & Time of Evaluation Date of Evaluation: 12/23/18 Time of Evaluation: 13:00 - Subjective Subjective: no acute complaints at present Objective - Vital Signs/Intake and Output Vital Signs (last 24 hours): Temp Pulse Resp BP Pulse Ox 97.9 F 84 18 114/56 L 93 L 12/23/18 08:47 12/23/18 08:51 12/23/18 08:47 12/23/18 08:51 12/23/18 08:47 - Medications Medications: Current Medications Albuterol Sulfate (Albuterol 0.083% Inhal Anastacia (2.5 Mg/3 Ml) Ud) 2.5 mg INH RQ4 PRN PRN Reason: Shortness of Breath Albuterol/Ipratropium (Duoneb 3 Mg/0.5 Mg (3 Ml) Ud) 3 ml INH RQID [facility] Last Admin: 12/23/18 15:39 Dose: Not Given Atorvastatin Calcium (Lipitor) 40 mg PO [facility] Famotidine (Pepcid) 20 mg PO BID [facility] Last Admin: 12/23/18 16:23 Dose: 20 mg Micafungin Sodium 100 mg/ (Sodium Chloride) 100 mls @ 100 mls/hr IVPB DAILY [facility] Last Admin: 12/23/18 08:51 Dose: 100 mls/hr Lisinopril (Zestril) 2.5 mg PO DAILY [facility] Last Admin: 12/23/18 08:51 Dose: 2.5 mg Metoprolol Tartrate (Lopressor) 12.5 mg PO Q12 [facility] Last Admin: 12/23/18 08:49 Dose: 12.5 mg - Labs Labs: 12/22/18 06:25 PT 41.8 Seconds (9.8-13.1) H* 12/23/18 06:20 INR 3.7 12/23/18 06:20 - Constitutional Appears: Well - Head Exam Head Exam: ATRAUMATIC, NORMAL INSPECTION, NORMOCEPHALIC - Eye Exam Eye Exam: EOMI, Normal appearance Pupil Exam: NORMAL ACCOMODATION, PERRL - ENT Exam ENT Exam: Mucous Membranes Moist, Normal Exam - Neck Exam Neck Exam: Normal Inspection - Respiratory Exam Respiratory Exam: Clear to Ausculation Bilateral, NORMAL BREATHING PATTERN - Cardiovascular Exam Cardiovascular Exam: REGULAR RHYTHM - GI/Abdominal Exam GI & Abdominal Exam: Normal Bowel Sounds - Rectal Exam Rectal Exam: NORMAL INSPECTION - Exam External exam: NORMAL EXTERNAL EXAM - Extremities Exam Extremities Exam: Full ROM, Normal Capillary Refill - Back Exam Back Exam: NORMAL INSPECTION - Neurological Exam Neurological Exam: Alert, Awake Neuro motor strength exam: Left Upper Extremity: 3, Right Upper Extremity: 3, Left Lower Extremity: 3, Right Lower Extremity: 3 - Psychiatric Exam Psychiatric exam: Normal Affect, Normal Mood - Skin Skin Exam: Normal Color Assessment and Plan (1) Debilitated patient Status: Acute (2) Acute hypoxemic respiratory failure Status: Resolved (3) Acute pulmonary edema Status: Acute (4) Anemia Status: Acute (5) CHF exacerbation Status: Acute (6) Coagulopathy Status: Acute (7) DVT prophylaxis Status: Acute - Assessment and Plan (Free Text) Assessment: generalized weakness, status post team conference, no DC date at present, physical, occupational rec therapy
[2018-12-24 06:25] LABS: BASO # 0.1 K/uL (0.0-0.2); BASO % 0.9 % (0.0-2.0); EOS # 0.7 K/uL (0.0-0.7); EOS % 8.7 % (0.0-4.0); HEMOGLOBIN 9.6 g/dL (12.0-16.0); LYMPH # 1.5 K/uL (1.0-4.3); LYMPH % 20.1 % (20.0-40.0); MEAN CELL VOLUME 96.6 fl (81.0-99.0); MEAN CORPUSCULAR HEMOGLOBIN 31.6 pg (27.0-31.0); MEAN CORPUSCULAR HGB CONC 32.7 g/dL (33.0-37.0); MEAN PLATELET VOLUME 7.3 fl (7.2-11.7); MONO # 0.6 K/uL (0.0-0.8); MONO % 8.2 % (0.0-10.0); NEUT # 4.7 K/uL (1.8-7.0); NEUT % 62.1 % (50.0-75.0); RBC 3.05 Mil/uL (3.80-5.20); RED CELL DISTRIBUTION WIDTH 17.8 % (11.5-14.5); WHITE BLOOD COUNT 7.6 K/uL (4.8-10.8)
[2018-12-24 06:34] LABS: INR 2.5
[2018-12-24 06:40] LABS: CALCIUM 9.2 mg/dL (8.4-10.2)
[2018-12-24] MEDS: Albuterol-Ipratrop 3 mg / 0.5 (3 ml) UD INH SCH ×4 (07:47→19:31)
--- NOTE | 2018-12-24 11:55 | CP.PCM.CON ---
History of Present Illness - History of Present Illness History of Present Illness: Podiatry consult note for Dr. Beavers, 58 yo female with a history of morbid obesity, vascular heart disease, HTN, possible COPD, and aortic valve replacement, initially admitted for cough and shortness of breath still smoke 2 packs per day.Patient was seen in subacute rehab for elongated painful toenails. Denies any other pedal complains. Denies f/n/v/sob. Past Patient History - Past Medical History & Family History Past Medical History?: Yes - Past Social History Smoking Status: Heavy Smoker > 10 Cigarettes Daily Chewing Tobacco Use: No Cigar Use: No Alcohol: Social Drugs: Denies Home Situation {Lives}: With Family - CARDIAC Hx Cardiac Disorders: Yes Hx Congestive Heart Failure: Yes Hx Heart Attack: Yes Hx Hypertension: Yes Other/Comment: AVR. Valvular Heart Disease;. Myocardial Ischemia. NSTEMI - PULMONARY Hx Chronic Obstructive Pulmonary Disease (COPD): Yes Hx Pneumonia: Yes (Influenza with bronchopneumonia) Other/Comment: Influenza A;. Acute Respiratory Failure - NEUROLOGICAL Hx Neurological Disorder: No - HEENT Hx HEENT Problems: Yes Other/Comment: uses eyeglasses-farsighted - RENAL Hx Chronic Kidney Disease: No Hx Dialysis: Yes (had hemodialysis when in ICU;no HD at present) Hx Renal Failure: Yes - ENDOCRINE/METABOLIC Hx Endocrine Disorders: Yes Other/Comment: Morbid Obesity - HEMATOLOGICAL/ONCOLOGICAL Hx Anemia: Yes Hx Human Immunodeficiency Virus (HIV): No Other/Comment: Coagulopathy;. leucocytosis;. sepsis - INTEGUMENTARY Hx Dermatological Problems: No - MUSCULOSKELETAL/RHEUMATOLOGICAL Hx Falls: Yes - GASTROINTESTINAL Hx Gastrointestinal Disorders: Yes Other/Comment: gastric bypass-gastric band. >morbid obesity;. GI bleed - GENITOURINARY/GYNECOLOGICAL Hx Genitourinary Disorders: No - PSYCHIATRIC Hx Psychophysiologic Disorder: No Hx Substance Use: No - SURGICAL HISTORY Hx Surgeries: Yes Hx Gastric Bypass Surgery: Yes Hx Valve Replacement: Yes (aortic) - ANESTHESIA Hx Anesthesia: Yes Hx Anesthesia Reactions: No Hx Malignant Hyperthermia: No Meds Allergies/Adverse Reactions: Allergies Allergy/AdvReac Type Severity Reaction Status Date / Time No Known Allergies Allergy Verified 11/25/18 20:03 - Medications Medications: Current Medications Albuterol Sulfate (Albuterol 0.083% Inhal Anastacia (2.5 Mg/3 Ml) Ud) 2.5 mg INH RQ4 PRN PRN Reason: Shortness of Breath Albuterol/Ipratropium (Duoneb 3 Mg/0.5 Mg (3 Ml) Ud) 3 ml INH RQID [facility] Last Admin: 12/24/18 11:24 Dose: 3 ml Atorvastatin Calcium (Lipitor) 40 mg PO HS [facility] Last Admin: 12/23/18 21:59 Dose: 40 mg Famotidine (Pepcid) 20 mg PO BID [facility] Last Admin: 12/24/18 08:57 Dose: 20 mg Lisinopril (Zestril) 2.5 mg PO DAILY [facility] Last Admin: 12/24/18 08:58 Dose: 2.5 mg Metoprolol Tartrate (Lopressor) 12.5 mg PO Q12 [facility] Last Admin: 12/24/18 08:57 Dose: 12.5 mg Warfarin Sodium (Coumadin) 6 mg PO QD5 [facility]; Protocol Stop: 12/24/18 17:01 Physical Exam - Constitutional Appears: Well, Non-toxic, No Acute Distress - Head Exam Head Exam: ATRAUMATIC - Extremities Exam Additional comments: Bilateral lower extremity exam: vascular: DP/pt faintly palpable, CFT <3 secs x 10, TG warm to warm, no edema or erythema noted derm: no open lesions, elongated toenails x10, xerosis of b/l feet. ortho: minimal pain on palpation to the toenails neuro: protective sensation grossly intact via ipswich 4/4 b/l Results - Vital Signs Recent Vital Signs: Last Vital Signs Temp 97.9 F 12/24/18 07:54 Pulse 105 H 12/24/18 09:56 Resp 20 12/24/18 07:54 BP 113/58 L 12/24/18 08:58 Pulse Ox 94 L 12/24/18 09:56 - Labs Result Diagrams: 12/24/18 05:30 12/24/18 05:30 Labs: Laboratory Results - last 24 hr 12/24/18 12/24/18 12/24/18 05:30 05:30 05:30 WBC 7.6 RBC 3.05 L Hgb 9.6 L Hct 29.5 L MCV 96.6 MCH 31.6 H MCHC 32.7 L RDW 17.8 H Plt Count 253 MPV 7.3 Neut % (Auto) 62.1 Lymph % (Auto) 20.1 Drew % (Auto) 8.2 Eos % (Auto) 8.7 H Baso % (Auto) 0.9 Neut # (Auto) 4.7 Lymph # (Auto) 1.5 Drew # (Auto) 0.6 Eos # (Auto) 0.7 Baso # (Auto) 0.1 PT 29.0 H D INR 2.5 Sodium 142 Potassium 4.1 Chloride 106 Carbon Dioxide 24 Anion Gap 16 BUN 35 H Creatinine 1.4 H Est GFR ( Amer) 47 Est GFR (Non-Af Amer) 38 Random Glucose 91 Calcium 9.2 Assessment & Plan - Assessment and Plan (Free Text) Assessment: 58 yo female seen and evaluated for painful, elongated toenails x 10 Plan: Patient seen and evaluated history and plan discussed in detail with the attending, Dr. Beavers nails debrided using sterile nail nippers no complications; patient tolerated podiatry will now sign off; please reconsult if needed.
--- NOTE | 2018-12-24 15:48 | CP.PCM.PN ---
Subjective - Date & Time of Evaluation Date of Evaluation: 12/24/18 Time of Evaluation: 13:50 - Subjective Subjective: Patient comfortable Objective - Vital Signs/Intake and Output Vital Signs (last 24 hours): Temp Pulse Resp BP Pulse Ox 97.9 F 105 H 20 113/58 L 94 L 12/24/18 07:54 12/24/18 09:56 12/24/18 07:54 12/24/18 08:58 12/24/18 09:56 - Medications Medications: Current Medications Albuterol Sulfate (Albuterol 0.083% Inhal Anastacia (2.5 Mg/3 Ml) Ud) 2.5 mg INH RQ4 PRN PRN Reason: Shortness of Breath Albuterol/Ipratropium (Duoneb 3 Mg/0.5 Mg (3 Ml) Ud) 3 ml INH RQID [facility] Last Admin: 12/24/18 11:24 Dose: 3 ml Atorvastatin Calcium (Lipitor) 40 mg PO HS [facility] Last Admin: 12/23/18 21:59 Dose: 40 mg Famotidine (Pepcid) 20 mg PO BID [facility] Last Admin: 12/24/18 08:57 Dose: 20 mg Lisinopril (Zestril) 2.5 mg PO DAILY [facility] Last Admin: 12/24/18 08:58 Dose: 2.5 mg Metoprolol Tartrate (Lopressor) 12.5 mg PO Q12 [facility] Last Admin: 12/24/18 08:57 Dose: 12.5 mg Warfarin Sodium (Coumadin) 6 mg PO QD5 [facility]; Protocol Stop: 12/24/18 17:01 - Labs Labs: 12/24/18 05:30 12/24/18 05:30 PT 29.0 Seconds (9.8-13.1) H D 12/24/18 05:30 INR 2.5 12/24/18 05:30 - Constitutional Appears: Chronically Ill - Head Exam Head Exam: ATRAUMATIC, NORMAL INSPECTION, NORMOCEPHALIC - Eye Exam Eye Exam: Normal appearance - ENT Exam ENT Exam: Normal Exam - Neck Exam Neck Exam: Full ROM - Respiratory Exam Respiratory Exam: Decreased Breath Sounds - Cardiovascular Exam Cardiovascular Exam: REGULAR RHYTHM, +S1, +S2 - GI/Abdominal Exam GI & Abdominal Exam: Normal Bowel Sounds - Extremities Exam Extremities Exam: Full ROM - Neurological Exam Neurological Exam: Abnormal Gait, Alert, Awake, CN II-XII Intact - Psychiatric Exam Psychiatric exam: Normal Mood - Skin Skin Exam: Normal Color Assessment and Plan (1) DVT prophylaxis Status: Acute (2) Morbid obesity Status: Chronic (3) Myocardial ischemia Status: Resolved (4) NSTEMI (non-ST elevated myocardial infarction) Status: Resolved (5) Pneumonia and influenza Status: Resolved (6) Respiratory failure with hypoxia and hypercapnia Status: Resolved (7) Sepsis Status: Resolved (8) History of aortic valve replacement Status: Chronic (9) Morbid obesity Status: Chronic (10) COPD (chronic obstructive pulmonary disease) Status: Suspected (11) Debilitated patient Status: Acute - Assessment and Plan (Free Text) Plan: Continue present rx.
[2018-12-25 06:06] LABS: INR 1.8; PROTHROMBIN TIME 20.6 Seconds (9.8-13.1)
[2018-12-25] MEDS: Albuterol-Ipratrop 3 mg / 0.5 (3 ml) UD INH SCH ×4 (07:22→19:56)
[2018-12-25] MEDS ORDERED: Enoxaparin 120 mg Syringe SC STA (07:32)
--- NOTE | 2018-12-25 12:11 | CP.PCM.PN ---
Subjective - Date & Time of Evaluation Date of Evaluation: 12/25/18 Time of Evaluation: 12:12 - Subjective Subjective: Improving well Objective - Vital Signs/Intake and Output Vital Signs (last 24 hours): Temp Pulse Resp BP Pulse Ox 97.7 F 93 H 20 105/60 92 L 12/25/18 07:36 12/25/18 10:50 12/25/18 07:36 12/25/18 10:03 12/25/18 10:50 - Medications Medications: Current Medications Albuterol Sulfate (Albuterol 0.083% Inhal Anastacia (2.5 Mg/3 Ml) Ud) 2.5 mg INH RQ4 PRN PRN Reason: Shortness of Breath Albuterol/Ipratropium (Duoneb 3 Mg/0.5 Mg (3 Ml) Ud) 3 ml INH RQID [facility] Last Admin: 12/25/18 11:12 Dose: Not Given Atorvastatin Calcium (Lipitor) 40 mg PO HS [facility] Last Admin: 12/24/18 21:19 Dose: 40 mg Famotidine (Pepcid) 20 mg PO BID [facility] Last Admin: 12/25/18 10:04 Dose: 20 mg Lisinopril (Zestril) 2.5 mg PO DAILY [facility] Last Admin: 12/25/18 09:00 Dose: 2.5 mg Metoprolol Tartrate (Lopressor) 12.5 mg PO Q12 [facility] Last Admin: 12/25/18 10:03 Dose: 12.5 mg Warfarin Sodium (Coumadin) 7.5 mg PO QD5 [facility]; Protocol Stop: 12/25/18 17:01 - Labs Labs: 12/24/18 05:30 12/24/18 05:30 PT 20.6 Seconds (9.8-13.1) H D 12/25/18 05:15 INR 1.8 12/25/18 05:15 - Constitutional Appears: Chronically Ill - Head Exam Head Exam: ATRAUMATIC, NORMAL INSPECTION, NORMOCEPHALIC - Eye Exam Eye Exam: Normal appearance - ENT Exam ENT Exam: Normal Exam - Neck Exam Neck Exam: Full ROM - Respiratory Exam Respiratory Exam: Clear to Ausculation Bilateral - Cardiovascular Exam Cardiovascular Exam: REGULAR RHYTHM, +S1, +S2 - GI/Abdominal Exam GI & Abdominal Exam: Normal Bowel Sounds - Extremities Exam Extremities Exam: Normal Inspection - Neurological Exam Neurological Exam: Alert, Awake, Oriented x3 Assessment and Plan (1) DVT prophylaxis Status: Acute (2) Morbid obesity Status: Chronic (3) Myocardial ischemia Status: Resolved (4) NSTEMI (non-ST elevated myocardial infarction) Status: Resolved (5) Pneumonia and influenza Status: Resolved (6) Respiratory failure with hypoxia and hypercapnia Status: Resolved (7) Sepsis Status: Resolved (8) History of aortic valve replacement Status: Chronic (9) Morbid obesity Status: Chronic (10) COPD (chronic obstructive pulmonary disease) Status: Suspected (11) Debilitated patient Status: Acute
--- NOTE | 2018-12-25 12:15 | CP.PCM.PN ---
Subjective - Date & Time of Evaluation Date of Evaluation: 12/25/18 Time of Evaluation: 11:30 - Subjective Subjective: no acute complaints at present Objective - Vital Signs/Intake and Output Vital Signs (last 24 hours): Temp Pulse Resp BP Pulse Ox 97.7 F 93 H 20 105/60 92 L 12/25/18 07:36 12/25/18 10:50 12/25/18 07:36 12/25/18 10:03 12/25/18 10:50 - Medications Medications: Current Medications Albuterol Sulfate (Albuterol 0.083% Inhal Anastacia (2.5 Mg/3 Ml) Ud) 2.5 mg INH RQ4 PRN PRN Reason: Shortness of Breath Albuterol/Ipratropium (Duoneb 3 Mg/0.5 Mg (3 Ml) Ud) 3 ml INH RQID [facility] Last Admin: 12/25/18 11:12 Dose: Not Given Atorvastatin Calcium (Lipitor) 40 mg PO HS [facility] Last Admin: 12/24/18 21:19 Dose: 40 mg Famotidine (Pepcid) 20 mg PO BID [facility] Last Admin: 12/25/18 10:04 Dose: 20 mg Lisinopril (Zestril) 2.5 mg PO DAILY [facility] Last Admin: 12/25/18 09:00 Dose: 2.5 mg Metoprolol Tartrate (Lopressor) 12.5 mg PO Q12 [facility] Last Admin: 12/25/18 10:03 Dose: 12.5 mg Warfarin Sodium (Coumadin) 7.5 mg PO QD5 [facility]; Protocol Stop: 12/25/18 17:01 - Labs Labs: 12/24/18 05:30 12/24/18 05:30 PT 20.6 Seconds (9.8-13.1) H D 12/25/18 05:15 INR 1.8 12/25/18 05:15 - Constitutional Appears: Well - Head Exam Head Exam: ATRAUMATIC, NORMAL INSPECTION, NORMOCEPHALIC - Eye Exam Eye Exam: EOMI, Normal appearance, PERRL Pupil Exam: NORMAL ACCOMODATION - ENT Exam ENT Exam: Mucous Membranes Moist, Normal Exam - Neck Exam Neck Exam: Full ROM - Respiratory Exam Respiratory Exam: Clear to Ausculation Bilateral, NORMAL BREATHING PATTERN - Cardiovascular Exam Cardiovascular Exam: REGULAR RHYTHM - GI/Abdominal Exam GI & Abdominal Exam: Soft, Normal Bowel Sounds - Rectal Exam Rectal Exam: NORMAL INSPECTION - Exam External exam: NORMAL EXTERNAL EXAM - Extremities Exam Extremities Exam: Full ROM, Normal Capillary Refill, Normal Inspection - Back Exam Back Exam: NORMAL INSPECTION - Neurological Exam Neurological Exam: Alert, Awake Neuro motor strength exam: Left Upper Extremity: 3, Right Upper Extremity: 3, Left Lower Extremity: 3, Right Lower Extremity: 3 - Psychiatric Exam Psychiatric exam: Normal Affect, Normal Mood - Skin Skin Exam: Dry, Intact Assessment and Plan (1) Debilitated patient Assessment & Plan: plan for physical, occupational and rec therapy continue to monitor pain, and skin Status: Acute (2) Acute hypoxemic respiratory failure Status: Resolved (3) Acute pulmonary edema Status: Acute (4) Anemia Status: Acute (5) CHF exacerbation Status: Acute (6) Coagulopathy Status: Acute (7) DVT prophylaxis Status: Acute
[2018-12-26] MEDS: Albuterol-Ipratrop 3 mg / 0.5 (3 ml) UD INH SCH ×4 (08:29→19:02)
--- NOTE | 2018-12-26 18:21 | CP.PCM.PN ---
Subjective - Date & Time of Evaluation Date of Evaluation: 12/26/18 Time of Evaluation: 18:21 - Subjective Subjective: improving well Objective - Vital Signs/Intake and Output Vital Signs (last 24 hours): Temp Pulse Resp BP Pulse Ox 97.2 F L 100 H 22 112/58 L 96 12/26/18 08:19 12/26/18 10:15 12/26/18 08:19 12/26/18 10:15 12/26/18 08:19 - Medications Medications: Current Medications Albuterol Sulfate (Albuterol 0.083% Inhal Anastacia (2.5 Mg/3 Ml) Ud) 2.5 mg INH RQ4 PRN PRN Reason: Shortness of Breath Albuterol/Ipratropium (Duoneb 3 Mg/0.5 Mg (3 Ml) Ud) 3 ml INH RQID [facility] Last Admin: 12/26/18 15:15 Dose: 3 ml Atorvastatin Calcium (Lipitor) 40 mg PO HS [facility] Last Admin: 12/25/18 21:31 Dose: 40 mg Famotidine (Pepcid) 20 mg PO BID [facility] Last Admin: 12/26/18 17:36 Dose: 20 mg Lisinopril (Zestril) 2.5 mg PO DAILY [facility] Last Admin: 12/26/18 08:47 Dose: 2.5 mg Metoprolol Tartrate (Lopressor) 12.5 mg PO Q12 [facility] Last Admin: 12/26/18 10:15 Dose: 12.5 mg - Labs Labs: 12/24/18 05:30 12/24/18 05:30 PT 20.6 Seconds (9.8-13.1) H D 12/25/18 05:15 INR 1.8 12/25/18 05:15 - Constitutional Appears: Chronically Ill - Head Exam Head Exam: ATRAUMATIC, NORMAL INSPECTION, NORMOCEPHALIC - Eye Exam Eye Exam: Normal appearance - ENT Exam ENT Exam: Normal Exam - Neck Exam Neck Exam: Full ROM - Respiratory Exam Respiratory Exam: Decreased Breath Sounds - Cardiovascular Exam Cardiovascular Exam: REGULAR RHYTHM, +S1, +S2 - GI/Abdominal Exam GI & Abdominal Exam: Normal Bowel Sounds - Extremities Exam Extremities Exam: Full ROM - Neurological Exam Neurological Exam: Alert, Awake, CN II-XII Intact - Psychiatric Exam Psychiatric exam: Flat Affect - Skin Skin Exam: Normal Color Assessment and Plan (1) DVT prophylaxis Status: Acute (2) Morbid obesity Status: Chronic (3) Myocardial ischemia Status: Resolved (4) NSTEMI (non-ST elevated myocardial infarction) Status: Resolved (5) Pneumonia and influenza Status: Resolved (6) Respiratory failure with hypoxia and hypercapnia Status: Resolved (7) Sepsis Status: Resolved (8) History of aortic valve replacement Status: Chronic (9) Morbid obesity Status: Chronic (10) COPD (chronic obstructive pulmonary disease) Status: Suspected (11) Debilitated patient Status: Acute
[2018-12-26] MEDS ORDERED: Enoxaparin 120 mg Syringe SC SCH (18:30)
[2018-12-27 07:16] LABS: INR 2.2; PROTHROMBIN TIME 24.8 Seconds (9.8-13.1)
[2018-12-27] MEDS: Albuterol-Ipratrop 3 mg / 0.5 (3 ml) UD INH SCH ×4 (07:22→20:08)
--- NOTE | 2018-12-27 10:44 | CP.PCM.PN ---
Subjective - Date & Time of Evaluation Date of Evaluation: 12/26/18 Time of Evaluation: 12:30 - Subjective Subjective: no acute complaints at present, feeling better Objective - Vital Signs/Intake and Output Vital Signs (last 24 hours): Temp Pulse Resp BP Pulse Ox 97.7 F 100 H 23 97/61 L 95 12/27/18 08:55 12/27/18 08:55 12/27/18 08:55 12/27/18 08:55 12/27/18 08:55 - Medications Medications: Current Medications Albuterol Sulfate (Albuterol 0.083% Inhal Anastacia (2.5 Mg/3 Ml) Ud) 2.5 mg INH RQ4 PRN PRN Reason: Shortness of Breath Albuterol/Ipratropium (Duoneb 3 Mg/0.5 Mg (3 Ml) Ud) 3 ml INH RQID [facility] Last Admin: 12/27/18 07:22 Dose: 3 ml Atorvastatin Calcium (Lipitor) 40 mg PO HS [facility] Last Admin: 12/26/18 21:35 Dose: 40 mg Enoxaparin Sodium (Lovenox) 120 mg SC STAT [facility]; Protocol Last Admin: 12/26/18 18:55 Dose: 120 mg Famotidine (Pepcid) 20 mg PO BID [facility] Last Admin: 12/27/18 08:26 Dose: 20 mg Lisinopril (Zestril) 2.5 mg PO DAILY [facility] Last Admin: 12/27/18 08:27 Dose: 2.5 mg Metoprolol Tartrate (Lopressor) 12.5 mg PO Q12 [facility] Last Admin: 12/27/18 08:26 Dose: 12.5 mg Warfarin Sodium (Coumadin) 7.5 mg PO QD5 [facility]; Protocol Stop: 12/27/18 17:01 - Labs Labs: 12/24/18 05:30 12/24/18 05:30 PT 24.8 Seconds (9.8-13.1) H 12/27/18 05:30 INR 2.2 12/27/18 05:30 - Constitutional Appears: Well - Head Exam Head Exam: ATRAUMATIC, NORMAL INSPECTION, NORMOCEPHALIC - Eye Exam Eye Exam: EOMI, Normal appearance Pupil Exam: NORMAL ACCOMODATION, PERRL - ENT Exam ENT Exam: Mucous Membranes Moist, Normal Exam - Neck Exam Neck Exam: Full ROM, Normal Inspection - Respiratory Exam Respiratory Exam: Clear to Ausculation Bilateral, NORMAL BREATHING PATTERN - Cardiovascular Exam Cardiovascular Exam: REGULAR RHYTHM - GI/Abdominal Exam GI & Abdominal Exam: Soft, Normal Bowel Sounds - Rectal Exam Rectal Exam: NORMAL INSPECTION - Exam External exam: NORMAL EXTERNAL EXAM - Extremities Exam Extremities Exam: Full ROM, Normal Capillary Refill, Normal Inspection - Back Exam Back Exam: NORMAL INSPECTION - Neurological Exam Neurological Exam: Alert, Awake Neuro motor strength exam: Left Upper Extremity: 3, Right Upper Extremity: 3, Left Lower Extremity: 3, Right Lower Extremity: 3 - Psychiatric Exam Psychiatric exam: Normal Affect, Normal Mood - Skin Skin Exam: Dry, Normal Color Assessment and Plan (1) Debilitated patient Assessment & Plan: plan for physical, occupational therapy, equipment evaluation closer to discharge for patient, continue with present rehab program. Status: Acute (2) Acute pulmonary edema Status: Acute (3) Anemia Status: Acute (4) CHF exacerbation Status: Acute (5) Coagulopathy Status: Acute (6) DVT prophylaxis Status: Acute
--- NOTE | 2018-12-27 20:40 | CP.PCM.PN ---
Subjective - Date & Time of Evaluation Date of Evaluation: 12/27/18 Time of Evaluation: 20:39 - Subjective Subjective: Patient improving well Objective - Vital Signs/Intake and Output Vital Signs (last 24 hours): Temp Pulse Resp BP Pulse Ox 97.7 F 100 H 23 97/61 L 95 12/27/18 08:55 12/27/18 08:55 12/27/18 08:55 12/27/18 08:55 12/27/18 08:55 - Medications Medications: Current Medications Albuterol Sulfate (Albuterol 0.083% Inhal Anastacia (2.5 Mg/3 Ml) Ud) 2.5 mg INH RQ4 PRN PRN Reason: Shortness of Breath Albuterol/Ipratropium (Duoneb 3 Mg/0.5 Mg (3 Ml) Ud) 3 ml INH RQID [facility] Last Admin: 12/27/18 20:08 Dose: 3 ml Atorvastatin Calcium (Lipitor) 40 mg PO HS [facility] Last Admin: 12/26/18 21:35 Dose: 40 mg Enoxaparin Sodium (Lovenox) 120 mg SC STAT [facility]; Protocol Last Admin: 12/26/18 18:55 Dose: 120 mg Famotidine (Pepcid) 20 mg PO BID [facility] Last Admin: 12/27/18 16:52 Dose: 20 mg Lactic Acid (Lac-Hydrin 12% Cream (140 G)) 0 ea TOP Q12 [facility] Lisinopril (Zestril) 2.5 mg PO DAILY [facility] Last Admin: 12/27/18 08:27 Dose: 2.5 mg Metoprolol Tartrate (Lopressor) 12.5 mg PO Q12 [facility] Last Admin: 12/27/18 08:26 Dose: 12.5 mg - Labs Labs: 12/24/18 05:30 12/24/18 05:30 PT 24.8 Seconds (9.8-13.1) H 12/27/18 05:30 INR 2.2 12/27/18 05:30 - Constitutional Appears: Non-toxic, No Acute Distress - Head Exam Head Exam: ATRAUMATIC, NORMAL INSPECTION, NORMOCEPHALIC - Eye Exam Eye Exam: Normal appearance - ENT Exam ENT Exam: Mucous Membranes Moist - Neck Exam Neck Exam: Full ROM - Respiratory Exam Respiratory Exam: NORMAL BREATHING PATTERN - Cardiovascular Exam Cardiovascular Exam: REGULAR RHYTHM, +S1, +S2 - GI/Abdominal Exam GI & Abdominal Exam: Soft, Normal Bowel Sounds - Extremities Exam Extremities Exam: Full ROM - Neurological Exam Neurological Exam: Alert, Awake, CN II-XII Intact, Oriented x3 - Psychiatric Exam Psychiatric exam: Normal Mood - Skin Skin Exam: Normal Color Assessment and Plan (1) DVT prophylaxis Status: Acute (2) Morbid obesity Status: Chronic (3) Myocardial ischemia Status: Resolved (4) NSTEMI (non-ST elevated myocardial infarction) Status: Resolved (5) Pneumonia and influenza Status: Resolved (6) Respiratory failure with hypoxia and hypercapnia Status: Resolved (7) Sepsis Status: Resolved (8) History of aortic valve replacement Status: Chronic (9) Morbid obesity Status: Chronic (10) COPD (chronic obstructive pulmonary disease) Status: Suspected (11) Debilitated patient Status: Acute
[2018-12-27] MEDS: Ammonium Lactate 12% Cream (140 g) TOP SCH (21:36)
[2018-12-28 06:30] LABS: PROTHROMBIN TIME 33.9 Seconds (9.8-13.1)
[2018-12-28] MEDS: Albuterol-Ipratrop 3 mg / 0.5 (3 ml) UD INH SCH ×4 (08:14→19:24)
[2018-12-28] MEDS ORDERED: Ammonium Lactate 12% Cream (140 g) TOP SCH (09:00)
[2018-12-28] MEDS: Ammonium Lactate 12% Cream (140 g) TOP SCH ×2 (09:21→20:10)
--- NOTE | 2018-12-28 11:15 | CP.PCM.PN ---
Subjective - Date & Time of Evaluation Date of Evaluation: 12/28/18 Time of Evaluation: 11:12 - Subjective Subjective: Seen on rounds seated in a bedside chair, appears comfortable. Patient does relate some dyspnea on exertion but otherwise feels well. There is occasional cough which is productive on occasion of a small quantity of mucoid sputum. Vital signs are stable and she remains afebrile. No dependent edema of the lower extremities. No cyanosis. No calf tenderness. Neck is supple and trachea is midline. Breath sounds are diminished bilaterally with the presence of early dry rales in both lungs. No audible wheezes or bronchial breath sounds. Satisfactory recovery from influenza with pneumonia. Underlying chronic obstructive pulmonary disease. Continue current medical regimen and physical therapy. Objective - Vital Signs/Intake and Output Vital Signs (last 24 hours): Temp Pulse Resp BP Pulse Ox 97.5 F L 89 20 101/52 L 93 L 12/28/18 07:45 12/28/18 09:21 12/28/18 07:45 12/28/18 09:21 12/28/18 08:43 - Medications Medications: Current Medications Albuterol Sulfate (Albuterol 0.083% Inhal Anastacia (2.5 Mg/3 Ml) Ud) 2.5 mg INH RQ4 PRN PRN Reason: Shortness of Breath Albuterol/Ipratropium (Duoneb 3 Mg/0.5 Mg (3 Ml) Ud) 3 ml INH RQID [facility] Last Admin: 12/28/18 08:14 Dose: 3 ml Atorvastatin Calcium (Lipitor) 40 mg PO HS [facility] Last Admin: 12/27/18 21:28 Dose: 40 mg Famotidine (Pepcid) 20 mg PO BID [facility] Last Admin: 12/28/18 09:20 Dose: 20 mg Lactic Acid (Lac-Hydrin 12% Cream (140 G)) 0 ea TOP Q12 [facility] Last Admin: 12/28/18 09:21 Dose: 1 applic Lisinopril (Zestril) 2.5 mg PO DAILY [facility] Last Admin: 12/28/18 09:21 Dose: 2.5 mg Metoprolol Tartrate (Lopressor) 12.5 mg PO Q12 [facility] Last Admin: 12/28/18 09:20 Dose: 12.5 mg Warfarin Sodium (Coumadin) 7.5 mg PO QD5 [facility]; Protocol Stop: 12/28/18 17:01 - Labs Labs: 12/24/18 05:30 12/24/18 05:30 PT 33.9 Seconds (9.8-13.1) H D 12/28/18 05:40 INR 3.0 12/28/18 05:40 Assessment and Plan (1) Pneumonia and influenza Status: Resolved (2) Acute hypoxemic respiratory failure Status: Resolved (3) COPD (chronic obstructive pulmonary disease) Status: Suspected
--- NOTE | 2018-12-28 12:03 | CP.PCM.PN ---
Subjective - Date & Time of Evaluation Date of Evaluation: 12/28/18 Time of Evaluation: 12:01 - Subjective Subjective: Pt seen and examined this morning at bedside, no new complaints at this time. Objective - Vital Signs/Intake and Output Vital Signs (last 24 hours): Temp Pulse Resp BP Pulse Ox 97.5 F L 89 20 101/52 L 93 L 12/28/18 07:45 12/28/18 09:21 12/28/18 07:45 12/28/18 09:21 12/28/18 08:43 - Medications Medications: Current Medications Albuterol Sulfate (Albuterol 0.083% Inhal Anastacia (2.5 Mg/3 Ml) Ud) 2.5 mg INH RQ4 PRN PRN Reason: Shortness of Breath Albuterol/Ipratropium (Duoneb 3 Mg/0.5 Mg (3 Ml) Ud) 3 ml INH RQID [facility] Last Admin: 12/28/18 11:22 Dose: 3 ml Atorvastatin Calcium (Lipitor) 40 mg PO HS [facility] Last Admin: 12/27/18 21:28 Dose: 40 mg Famotidine (Pepcid) 20 mg PO BID [facility] Last Admin: 12/28/18 09:20 Dose: 20 mg Lactic Acid (Lac-Hydrin 12% Cream (140 G)) 0 ea TOP Q12 [facility] Last Admin: 12/28/18 09:21 Dose: 1 applic Lisinopril (Zestril) 2.5 mg PO DAILY [facility] Last Admin: 12/28/18 09:21 Dose: 2.5 mg Metoprolol Tartrate (Lopressor) 12.5 mg PO Q12 [facility] Last Admin: 12/28/18 09:20 Dose: 12.5 mg Warfarin Sodium (Coumadin) 7.5 mg PO QD5 [facility]; Protocol Stop: 12/28/18 17:01 - Labs Labs: 12/24/18 05:30 12/24/18 05:30 PT 33.9 Seconds (9.8-13.1) H D 12/28/18 05:40 INR 3.0 12/28/18 05:40 - Constitutional Appears: No Acute Distress - Head Exam Head Exam: ATRAUMATIC, NORMOCEPHALIC - Eye Exam Eye Exam: EOMI - ENT Exam ENT Exam: Mucous Membranes Moist - Neck Exam Neck Exam: Full ROM - Respiratory Exam Respiratory Exam: Clear to Ausculation Bilateral, NORMAL BREATHING PATTERN - Cardiovascular Exam Cardiovascular Exam: RRR, +S1, +S2. absent: Diastolic murmur, Murmur - GI/Abdominal Exam GI & Abdominal Exam: Soft, Normal Bowel Sounds. absent: Tenderness - Extremities Exam Extremities Exam: Full ROM. absent: Calf Tenderness, Pedal Edema, Tenderness - Neurological Exam Neurological Exam: Alert, Awake, Oriented x3 - Psychiatric Exam Psychiatric exam: Normal Affect, Normal Mood - Skin Skin Exam: Dry, Normal Color, Warm Assessment and Plan - Assessment and Plan (Free Text) Assessment: Assessment and Plan (1) NSTEMI (non-ST elevated myocardial infarction) Status: Suspected (2) COPD (chronic obstructive pulmonary disease) Status: Suspected (3) Respiratory failure with hypoxia and hypercapnia Status: Resolved (4) Sepsis Status: Resolved (5) CAP (community acquired pneumonia) Status: Resolved Plan: Will plan for ischemic evaluation once patient is further stabilized possible cath in the near future. Continue: Zestril 2.5 Daily Toprol 12.5 Q12 Lipitor 40 Daily Warfarin 7.5mg INR 3.0 Goal 2.5-3.0 Pt seen, examined, assessment and plan discussed with Dr Herman Wei PGY1, Internal Medicine Resident
--- NOTE | 2018-12-28 13:19 | CP.PCM.PN ---
Subjective - Date & Time of Evaluation Date of Evaluation: 12/28/18 Time of Evaluation: 13:19 - Subjective Subjective: Impruving well in good spirit, ambulating, no cp minimal sob on exertion Objective - Vital Signs/Intake and Output Vital Signs (last 24 hours): Temp Pulse Resp BP Pulse Ox 97.5 F L 89 20 101/52 L 93 L 12/28/18 07:45 12/28/18 09:21 12/28/18 07:45 12/28/18 09:21 12/28/18 08:43 - Medications Medications: Current Medications Albuterol Sulfate (Albuterol 0.083% Inhal Anastacia (2.5 Mg/3 Ml) Ud) 2.5 mg INH RQ4 PRN PRN Reason: Shortness of Breath Albuterol/Ipratropium (Duoneb 3 Mg/0.5 Mg (3 Ml) Ud) 3 ml INH RQID [facility] Last Admin: 12/28/18 11:22 Dose: 3 ml Atorvastatin Calcium (Lipitor) 40 mg PO HS [facility] Last Admin: 12/27/18 21:28 Dose: 40 mg Famotidine (Pepcid) 20 mg PO BID [facility] Last Admin: 12/28/18 09:20 Dose: 20 mg Lactic Acid (Lac-Hydrin 12% Cream (140 G)) 0 ea TOP Q12 [facility] Last Admin: 12/28/18 09:21 Dose: 1 applic Lisinopril (Zestril) 2.5 mg PO DAILY [facility] Last Admin: 12/28/18 09:21 Dose: 2.5 mg Metoprolol Tartrate (Lopressor) 12.5 mg PO Q12 [facility] Last Admin: 12/28/18 09:20 Dose: 12.5 mg Warfarin Sodium (Coumadin) 7.5 mg PO QD5 [facility]; Protocol Stop: 12/28/18 17:01 - Labs Labs: 12/24/18 05:30 12/24/18 05:30 PT 33.9 Seconds (9.8-13.1) H D 12/28/18 05:40 INR 3.0 12/28/18 05:40 - Constitutional Appears: Chronically Ill - Head Exam Head Exam: ATRAUMATIC, NORMAL INSPECTION, NORMOCEPHALIC - Eye Exam Eye Exam: Normal appearance - ENT Exam ENT Exam: Mucous Membranes Moist - Neck Exam Neck Exam: Full ROM - Respiratory Exam Respiratory Exam: Decreased Breath Sounds - Cardiovascular Exam Cardiovascular Exam: REGULAR RHYTHM, +S1, +S2 - GI/Abdominal Exam GI & Abdominal Exam: Soft, Normal Bowel Sounds - Extremities Exam Extremities Exam: Full ROM - Neurological Exam Neurological Exam: Alert, Awake, CN II-XII Intact, Oriented x3 - Psychiatric Exam Psychiatric exam: Normal Affect - Skin Skin Exam: Normal Color Assessment and Plan (1) DVT prophylaxis Status: Acute (2) Morbid obesity Status: Chronic (3) Myocardial ischemia Status: Resolved (4) NSTEMI (non-ST elevated myocardial infarction) Status: Resolved (5) Pneumonia and influenza Status: Resolved (6) Respiratory failure with hypoxia and hypercapnia Status: Resolved (7) Sepsis Status: Resolved (8) History of aortic valve replacement Status: Chronic (9) Morbid obesity Status: Chronic (10) COPD (chronic obstructive pulmonary disease) Status: Suspected (11) Debilitated patient Status: Acute
[2018-12-29 06:20] LABS: BASO % 0.6 % (0.0-2.0); EOS # 0.5 K/uL (0.0-0.7); EOS % 7.6 % (0.0-4.0); HEMOGLOBIN 9.3 g/dL (12.0-16.0); LYMPH # 1.5 K/uL (1.0-4.3); LYMPH % 22.4 % (20.0-40.0); MEAN CELL VOLUME 96.6 fl (81.0-99.0); MEAN CORPUSCULAR HEMOGLOBIN 32.4 pg (27.0-31.0); MEAN CORPUSCULAR HGB CONC 33.5 g/dL (33.0-37.0); MEAN PLATELET VOLUME 7.5 fl (7.2-11.7); MONO # 0.5 K/uL (0.0-0.8); MONO % 7.9 % (0.0-10.0); NEUT # 4.1 K/uL (1.8-7.0); NEUT % 61.5 % (50.0-75.0); NRBC % 0.1 % (0.0-0.0); RBC 2.87 Mil/uL (3.80-5.20); WHITE BLOOD COUNT 6.6 K/uL (4.8-10.8)
[2018-12-29 06:24] LABS: CALCIUM 9.2 mg/dL (8.4-10.2)
[2018-12-29] MEDS: Albuterol-Ipratrop 3 mg / 0.5 (3 ml) UD INH SCH ×4 (07:38→19:22)
[2018-12-29] MEDS: Ammonium Lactate 12% Cream (140 g) TOP SCH ×2 (09:20→21:52)
[2018-12-29 09:41] LABS: INR 3.9
--- NOTE | 2018-12-29 15:24 | CP.PCM.PN ---
Subjective - Date & Time of Evaluation Date of Evaluation: 12/29/18 Time of Evaluation: 15:13 - Subjective Subjective: Improving well Objective - Vital Signs/Intake and Output Vital Signs (last 24 hours): Temp Pulse Resp BP Pulse Ox 97.3 F L 92 H 21 114/60 93 L 12/29/18 08:04 12/29/18 09:20 12/29/18 08:04 12/29/18 13:02 12/29/18 08:49 - Medications Medications: Current Medications Albuterol Sulfate (Albuterol 0.083% Inhal Anastacia (2.5 Mg/3 Ml) Ud) 2.5 mg INH RQ4 PRN PRN Reason: Shortness of Breath Albuterol/Ipratropium (Duoneb 3 Mg/0.5 Mg (3 Ml) Ud) 3 ml INH RQID [facility] Last Admin: 12/29/18 11:12 Dose: 3 ml Atorvastatin Calcium (Lipitor) 40 mg PO HS [facility] Last Admin: 12/28/18 21:05 Dose: 40 mg Famotidine (Pepcid) 20 mg PO BID [facility] Last Admin: 12/29/18 09:20 Dose: 20 mg Lactic Acid (Lac-Hydrin 12% Cream (140 G)) 0 ea TOP Q12 [facility] Last Admin: 12/29/18 09:20 Dose: 1 applic Lisinopril (Zestril) 2.5 mg PO DAILY [facility] Last Admin: 12/29/18 09:20 Dose: 2.5 mg Metoprolol Tartrate (Lopressor) 12.5 mg PO Q12 [facility] Last Admin: 12/29/18 13:02 Dose: 12.5 mg Warfarin Sodium (Coumadin) 5 mg PO QD5 [facility]; Protocol Stop: 12/29/18 17:01 - Labs Labs: 12/29/18 05:30 12/29/18 05:30 PT 44.0 Seconds (9.8-13.1) H* 12/29/18 05:30 INR 3.9 12/29/18 05:30 - Constitutional Appears: Non-toxic, Chronically Ill - Head Exam Head Exam: ATRAUMATIC, NORMAL INSPECTION, NORMOCEPHALIC - Eye Exam Eye Exam: Normal appearance - ENT Exam ENT Exam: Mucous Membranes Moist - Neck Exam Neck Exam: Full ROM - Respiratory Exam Respiratory Exam: Decreased Breath Sounds - Cardiovascular Exam Cardiovascular Exam: Irregular Rhythm, +S1, +S2 - GI/Abdominal Exam GI & Abdominal Exam: Normal Bowel Sounds - Neurological Exam Neurological Exam: Alert, Awake, CN II-XII Intact, Oriented x3 - Psychiatric Exam Psychiatric exam: Normal Affect - Skin Skin Exam: Normal Color Assessment and Plan (1) DVT prophylaxis Status: Acute (2) Morbid obesity Status: Chronic (3) Myocardial ischemia Status: Resolved (4) NSTEMI (non-ST elevated myocardial infarction) Status: Resolved (5) Pneumonia and influenza Status: Resolved (6) Respiratory failure with hypoxia and hypercapnia Status: Resolved (7) Sepsis Status: Resolved (8) History of aortic valve replacement Status: Chronic (9) Morbid obesity Status: Chronic (10) COPD (chronic obstructive pulmonary disease) Status: Suspected (11) Debilitated patient Status: Acute
--- NOTE | 2018-12-29 21:14 | CP.PCM.PN ---
Subjective - Date & Time of Evaluation Date of Evaluation: 12/29/18 Time of Evaluation: 06:00 - Subjective Subjective: Pt seen and examined, reports no new complaints at this time. Objective - Vital Signs/Intake and Output Vital Signs (last 24 hours): Temp Pulse Resp BP Pulse Ox 98.8 F 96 H 20 124/64 95 12/29/18 20:10 12/29/18 20:10 12/29/18 20:10 12/29/18 20:10 12/29/18 20:10 - Medications Medications: Current Medications Albuterol Sulfate (Albuterol 0.083% Inhal Anastacia (2.5 Mg/3 Ml) Ud) 2.5 mg INH RQ4 PRN PRN Reason: Shortness of Breath Albuterol/Ipratropium (Duoneb 3 Mg/0.5 Mg (3 Ml) Ud) 3 ml INH RQID [facility] Last Admin: 12/29/18 19:22 Dose: 3 ml Atorvastatin Calcium (Lipitor) 40 mg PO HS [facility] Last Admin: 12/28/18 21:05 Dose: 40 mg Famotidine (Pepcid) 20 mg PO BID [facility] Last Admin: 12/29/18 16:47 Dose: 20 mg Lactic Acid (Lac-Hydrin 12% Cream (140 G)) 0 ea TOP Q12 [facility] Last Admin: 12/29/18 09:20 Dose: 1 applic Lisinopril (Zestril) 2.5 mg PO DAILY [facility] Last Admin: 12/29/18 09:20 Dose: 2.5 mg Metoprolol Tartrate (Lopressor) 12.5 mg PO Q12 [facility] Last Admin: 12/29/18 13:02 Dose: 12.5 mg - Labs Labs: 12/29/18 05:30 12/29/18 05:30 PT 44.0 Seconds (9.8-13.1) H* 12/29/18 05:30 INR 3.9 12/29/18 05:30 - Constitutional Appears: No Acute Distress - Head Exam Head Exam: ATRAUMATIC, NORMOCEPHALIC - Eye Exam Eye Exam: EOMI - ENT Exam ENT Exam: Mucous Membranes Moist - Neck Exam Neck Exam: Full ROM - Respiratory Exam Respiratory Exam: Clear to Ausculation Bilateral, NORMAL BREATHING PATTERN. absent: Accessory Muscle Use - Cardiovascular Exam Cardiovascular Exam: RRR, +S1, +S2 - GI/Abdominal Exam GI & Abdominal Exam: Soft, Normal Bowel Sounds - Extremities Exam Extremities Exam: Full ROM. absent: Calf Tenderness, Pedal Edema, Tenderness - Neurological Exam Neurological Exam: Alert, Awake, Oriented x3 - Psychiatric Exam Psychiatric exam: Normal Affect, Normal Mood - Skin Skin Exam: Dry, Normal Color, Warm Assessment and Plan - Assessment and Plan (Free Text) Assessment: (1) NSTEMI (non-ST elevated myocardial infarction) Status: Suspected (2) COPD (chronic obstructive pulmonary disease) Status: Suspected (3) Respiratory failure with hypoxia and hypercapnia Status: Resolved (4) Sepsis Status: Resolved (5) CAP (community acquired pneumonia) Status: Resolved Plan: possible cath in the near future. Continue: Lisinopril 2.5 Daily Toprol 12.5 Q12 Lipitor 40 Daily Warfarin 5.0mg INR 3.9 Pt seen, examined, assessment and plan discussed with Dr Herman Wei PGY1, Internal Medicine Resident
[2018-12-30 07:16] LABS: PROTHROMBIN TIME 45.7 Seconds (9.8-13.1)
[2018-12-30] MEDS: Albuterol-Ipratrop 3 mg / 0.5 (3 ml) UD INH SCH ×4 (07:47→19:22)
[2018-12-30] MEDS: Ammonium Lactate 12% Cream (140 g) TOP SCH ×2 (08:38→21:15)
--- NOTE | 2018-12-30 11:25 | CP.PCM.PN ---
Subjective - Date & Time of Evaluation Date of Evaluation: 12/28/18 Time of Evaluation: 20:00 - Subjective Subjective: no acute complaints at present Objective - Vital Signs/Intake and Output Vital Signs (last 24 hours): Temp Pulse Resp BP Pulse Ox 97.6 F 53 L 22 113/57 L 95 12/30/18 08:21 12/30/18 08:37 12/30/18 08:21 12/30/18 08:37 12/30/18 08:21 - Medications Medications: Current Medications Albuterol Sulfate (Albuterol 0.083% Inhal Anastacia (2.5 Mg/3 Ml) Ud) 2.5 mg INH RQ4 PRN PRN Reason: Shortness of Breath Albuterol/Ipratropium (Duoneb 3 Mg/0.5 Mg (3 Ml) Ud) 3 ml INH RQID [facility] Last Admin: 12/30/18 11:05 Dose: Not Given Atorvastatin Calcium (Lipitor) 40 mg PO HS [facility] Last Admin: 12/29/18 21:51 Dose: 40 mg Famotidine (Pepcid) 20 mg PO BID [facility] Last Admin: 12/30/18 08:37 Dose: 20 mg Lactic Acid (Lac-Hydrin 12% Cream (140 G)) 0 ea TOP Q12 [facility] Last Admin: 12/30/18 08:38 Dose: 1 applic Lisinopril (Zestril) 2.5 mg PO DAILY [facility] Last Admin: 12/30/18 08:37 Dose: 2.5 mg Metoprolol Tartrate (Lopressor) 12.5 mg PO Q12 [facility] Last Admin: 12/30/18 08:37 Dose: 12.5 mg - Labs Labs: 12/29/18 05:30 12/29/18 05:30 PT 45.7 Seconds (9.8-13.1) H* 12/30/18 05:35 INR 4.0 12/30/18 05:35 - Constitutional Appears: Well - Head Exam Head Exam: ATRAUMATIC, NORMAL INSPECTION, NORMOCEPHALIC - Eye Exam Eye Exam: EOMI, Normal appearance, PERRL Pupil Exam: NORMAL ACCOMODATION - ENT Exam ENT Exam: Mucous Membranes Moist, Normal Exam - Neck Exam Neck Exam: Normal Inspection - Respiratory Exam Respiratory Exam: Clear to Ausculation Bilateral, NORMAL BREATHING PATTERN - Cardiovascular Exam Cardiovascular Exam: REGULAR RHYTHM - GI/Abdominal Exam GI & Abdominal Exam: Soft, Normal Bowel Sounds - Rectal Exam Rectal Exam: NORMAL INSPECTION - Exam External exam: NORMAL EXTERNAL EXAM - Extremities Exam Extremities Exam: Full ROM, Normal Capillary Refill, Normal Inspection - Back Exam Back Exam: NORMAL INSPECTION - Neurological Exam Neurological Exam: Alert, Awake Neuro motor strength exam: Left Upper Extremity: 3, Right Upper Extremity: 3, Left Lower Extremity: 3, Right Lower Extremity: 3 - Psychiatric Exam Psychiatric exam: Normal Affect, Normal Mood - Skin Skin Exam: Dry, Intact Assessment and Plan (1) Debilitated patient Assessment & Plan: plan for physical, occupational ,rec therapy Status: Acute (2) Acute pulmonary edema Status: Acute (3) Anemia Status: Acute (4) CHF exacerbation Status: Acute (5) Coagulopathy Status: Acute (6) DVT prophylaxis Status: Acute
--- NOTE | 2018-12-30 11:28 | CP.PCM.PN ---
Subjective - Date & Time of Evaluation Date of Evaluation: 12/30/18 Time of Evaluation: 11:15 - Subjective Subjective: no acute complaints, just generalized weakness Objective - Vital Signs/Intake and Output Vital Signs (last 24 hours): Temp Pulse Resp BP Pulse Ox 97.6 F 53 L 22 113/57 L 95 12/30/18 08:21 12/30/18 08:37 12/30/18 08:21 12/30/18 08:37 12/30/18 08:21 - Medications Medications: Current Medications Albuterol Sulfate (Albuterol 0.083% Inhal Anastacia (2.5 Mg/3 Ml) Ud) 2.5 mg INH RQ4 PRN PRN Reason: Shortness of Breath Albuterol/Ipratropium (Duoneb 3 Mg/0.5 Mg (3 Ml) Ud) 3 ml INH RQID [facility] Last Admin: 12/30/18 11:05 Dose: Not Given Atorvastatin Calcium (Lipitor) 40 mg PO HS [facility] Last Admin: 12/29/18 21:51 Dose: 40 mg Famotidine (Pepcid) 20 mg PO BID [facility] Last Admin: 12/30/18 08:37 Dose: 20 mg Lactic Acid (Lac-Hydrin 12% Cream (140 G)) 0 ea TOP Q12 [facility] Last Admin: 12/30/18 08:38 Dose: 1 applic Lisinopril (Zestril) 2.5 mg PO DAILY [facility] Last Admin: 12/30/18 08:37 Dose: 2.5 mg Metoprolol Tartrate (Lopressor) 12.5 mg PO Q12 [facility] Last Admin: 12/30/18 08:37 Dose: 12.5 mg - Labs Labs: 12/29/18 05:30 12/29/18 05:30 PT 45.7 Seconds (9.8-13.1) H* 12/30/18 05:35 INR 4.0 12/30/18 05:35 - Constitutional Appears: Well - Head Exam Head Exam: ATRAUMATIC, NORMAL INSPECTION, NORMOCEPHALIC - Eye Exam Eye Exam: EOMI, Normal appearance, PERRL Pupil Exam: NORMAL ACCOMODATION - ENT Exam ENT Exam: Mucous Membranes Moist, Normal Exam - Neck Exam Neck Exam: Full ROM, Normal Inspection - Respiratory Exam Respiratory Exam: Clear to Ausculation Bilateral, NORMAL BREATHING PATTERN - Cardiovascular Exam Cardiovascular Exam: REGULAR RHYTHM - GI/Abdominal Exam GI & Abdominal Exam: Soft, Normal Bowel Sounds - Rectal Exam Rectal Exam: NORMAL INSPECTION - Exam External exam: NORMAL EXTERNAL EXAM - Extremities Exam Extremities Exam: Full ROM, Normal Capillary Refill, Normal Inspection - Back Exam Back Exam: NORMAL INSPECTION - Neurological Exam Neurological Exam: Alert, Awake Neuro motor strength exam: Left Upper Extremity: 3, Right Upper Extremity: 3, Left Lower Extremity: 3, Right Lower Extremity: 3 - Psychiatric Exam Psychiatric exam: Normal Affect, Normal Mood - Skin Skin Exam: Dry, Intact Assessment and Plan (1) Debilitated patient Assessment & Plan: plan for team conference for today, possible discharge for 01/02 pt, ot, rec therapy equipment eval Status: Acute (2) Acute pulmonary edema Status: Acute (3) Anemia Status: Acute (4) CHF exacerbation Status: Acute (5) Coagulopathy Status: Acute (6) DVT prophylaxis Status: Acute
--- NOTE | 2018-12-30 12:22 | PCM.PSYTMC ---
Acute Rehab Team Conference - - Vital Signs: Vital Signs (Last 8 Hours): Vital Signs 12/30/18 12/30/18 12/30/18 08:13 08:21 08:37 Temperature 97.6 F 97.6 F Pulse Rate 91 H 91 H 53 L Respiratory 22 22 Rate Blood Pressure 121/66 121/66 113/57 L O2 Sat by Pulse 95 Oximetry 12/30/18 09:14 Temperature Pulse Rate 85 Respiratory Rate Blood Pressure O2 Sat by Pulse 93 L Oximetry Pain: 0 - Precautions: Precautions: Fall Prevention - Medications/Other Issues: Comment: -Daily PT/INR - On Coumadin - Consults: Comment: -Dr. Carrillo - Physiatry. -Dr. Sutton - Cardiology. -Dr. Anat Duckworth -Dr. Beavers - Podiatry. -Dr. Adamson - Pulmonology - Skin: Incision Site: N/A - Toileting: Toileting: Modified Independent - Bladder Management: Bladder Pattern: Normal Voiding Method: Toilet Bladder Management: Modified Independent - Transfers: Transfers: Modified Independent - ADL's: ADL's: Minimal Assistance - Pain Management: Other Intervention:: N/A - Patient/Family Teaching: Other Intervention:: Provide education on medication (Coumadin) and safety precautions - Goals/Time Frame: Comment: Keep patient safe and manage PT/INR and Coumadin until discharge date or next team conference. - Provider: Registered Nurse:: Yaneth Payne Physical Therapy - Bed Mobility Bed Mobility: Minimal Assistance - Transfers Wheelchair to Mat: Supervision, Verbal Cues Sit to Stand: Supervision, Verbal Cues - Ambulation Level of Assistance: Supervision, Verbal Cues Distance (ft.): 100 Assistive Devices: Single point cane - Stair Negotiation Stairs: Level of Assistance: Verbal Cues, Contact Guard Number of Stairs: 6 Stairs: Assistive Devices: Left Handrail, Single point cane - Standing Balance Static Stand: Modified [place] with assistive device - Pain Pain (assessed during therapy session): 0 - Insight/Carryover Insight/Carryover: Good - Patient/Family Education Comment: energy conservation techniques, safety, d/c recommendations , POC - Assessment/Plan Assessment: Pt participated in PT tx session focusing on BLE strengthening exercises, endurance activities, and functional mobility training. Pt demonstrates SOB with increased ambulation; cues throughout for deep breathing exercises to promote energy recovery. Pt ambulates with SPC and close S . Pt will continue to benefit from skilled PT interventions to address deficits, reduce fall risk, and maximize functional independence. - Goals Timeframe: 10 days Goals: sit< > supine mod I. Sit < > stand transfers mod I with spc. Pt will ambulate 300 ft mod I with SPC. Pt will ascend/descend flight of stairs with supervision - Provider Physical Therapist:: Adwoa Herrera License Number:: [id number] Occupational Therapy - Arousal/Attention/Orientation Level of Consciousness: Awake, Alert Patient Orientation: Person, Place, Time, Appropriate to Age, Appropriate to Situation - ADL/IADL Self Feeding: Independent, Set-up Help Grooming: Independent, Set-up Help Bathing-Upper Ext: Supervision, Verbal Cues, Set-up Help Bathing-Lower Ext: Verbal Cues, Set-up Help, Contact Guard, Minimal Assistance Dressing-Upper Ext: Independent, Supervision Dressing-Lower Ext: Verbal Cues, Set-up Help, Minimal Assistance Comment: -Pt may benefit from hip kit for lower body dressing/bathing. Pt dons/doffs B socks with CS/Supervision & verbal cues using sockide/dressing stick. -Homemaking : TBA - Sitting Balance Static Sitting: Independent without upper extremity support Dynamic Sitting: Reaches across midline, Reaches out of base of support, Reaches within base of support, Requires supervision Comment: seated unsupported - Transfers Wheelchair to Bed Transfers: Supervision, Verbal Cues, Set-up Help Toilet Transfers: Supervision, Verbal Cues, Set-up Help Comment: shower transfers: Supervision & verbal cues for pacing - Wheelchair Management Level of Assistance: Not Applicable - Upper Extremity Status Right Upper Extremity Comment: AROM is WFLS, strength 4-/5 Left Upper Extremity Comment: AROM is WFLS: strength 4/5 - Pain Pain (assessed during therapy session): 0 - Insight/Carryover Insight/Carryover: Good - Patient/Family Education Comment: -ongoing for adls, transfers/mobility training using adaptive/compensatory strategies, cardiac precautions. -uses/applications dressing stick, fiction and nonfiction prose writer, sockaide, 3in one commode. -rehab/OT goals, plan of care - Assessment/Plan Assessment: Pt is a 58 year old female ith dx: NSTEMI. Precautions: cardiac /fall precautions, monitor O2 sat, hr. Pt limited by impaired standing balance/tolerance, impaired activity tolerance, impaired RUE strength(specifically hand), impaired sensation R 1st-3rd digits, impaired knowledge of compensatory/adaptive strategies, impaired safety, impaired overall strength which impact on function in self care, transfers/mobility and Iadls. Pt needs frequent rest breaks with standing activities. Pt will continue to benefit from skilled OT to maximize function in self care, transfers/mobility and Iadls for safe transition home with services. Pt continues to progress towards established goals. Pt currently S/DS for chair/commode transfers, I/setup for upper body dressing, CG and verbal cues for lower body dressing, Min assist overall bathing, Min assist for toileting(to further assess). Pt will need to focus on bed mobility from supine, toileting, lower body dressing & household tasks for safe transition home with services. Recommend wide commode to use in walk in shower and over toilet, hip kit for lower body dressing/bathing--to further assess and finalize DME needs with employment evaluator/case manager. . See PT notes for recommendation for ambulatory device. Pt educated on considering purchasing oximeter to use at home to provide feedback re:; heart francis and O2 saturation. Pt needs reminders top nathaniel self with all tasks adherikng to energy conservation strategies. Pt will need the following DMEs: wide commode, hip kit. Goal: Intermittent S for self care, transfers/mobility using adaptive devices. - Goals Timeframe: 5 days Comment: -FEEDING: Mod I. -GROOMING: Mod I. -TRANSFERS:<->bed, commode, chair and other surfaces with Mod I;<->shower with DS/Mod I. -TOILETING: Mod I. - LIGHT HOMEMAKING/KITCHEN TASKS: Mod I. -UPPER BODY ADLS: Mod I. -LOWER BODY ADLS: Mod I - Provider Occupational Therapist:: Lata Hughes License Number: [id number] Recreational Therapy - Participation Participation: Participates in Individual and/or Group Sessions - Attendance Attendance: 3-5 times per week - Activities Leisure Activities: Cards and Games - Socialization Level of Socialization: Initiates/interacts freely with care givers and peer - Diversional Time Diversional Time: television, enjoys socializing - Assessment Assessment/Plan: Pt is agreeable to participate in 1:1 and group recreation therapy sessions throughout stay on unit. Pt has participated in bingo task with peers and oriented to other leisure tasks such as connect four and card tasks. Encourage pt to participate in leisure tasks at home to improve activity leticia ance level, diversion, and arousal level. Pt will continue to benefit from leisure education to improve leisure awareness level. Pt's mood is stable- positive throughout stay on unit. Problems Currently Limiting Participation: anxiety, decrease leisure awareness level, decrease activity tolerance level Goals and Time Frame: Pt will be encouraged to participate in 1:1 and group recreation therapy sessions to improve direction following, leisure awareness level, arousal level, and diversion from anxiety level by date of discharge. - Provider Therapist: Paula Martines Nutrition - Current Diet Current Diet/Supplement/Feedings: 2 gram Na diet - Appetite Percent Meal Consumed: 50-74% - Assessment/Goals/Time Frame Assessments/Goals/Time Frame: Pt at moderate nutritional risk. goal: Patient to consume 75-100% of meals. Met, continue. Follow-up due on 12/30/2018 - Provider Provider: Adrianna León Case Management - Psychosocial Assessment Support Systems[facility] - [phone] Psychological Interventions/Needs: Patient is AAOx3 and able to verbalize needs Discharge Concerns: Patient has 5-6 steps to enter her home. Patient/Family Meeting: CM met with patient and rehab team. Intervention/Goal/Outcome: 1. Goal: Supervision/Mod I 2. Plan: home with VNS 3. DME needs 4. schedule f/u appts 5. continued emotional support - Discharge Plan Discharge Plan: Home with services Home Services: [facility] - Provider Provider: Renuka Pace License Number: [id number] Rehabilitation Plan - Treatment Plan Treatment Plan: Physical Therapy, Occupational Therapy, Dietary, Patient/Family Education - Recommendation Recommendation: Physical Therapy, Occupational Therapy, Dietary, Patient/Family Education - Discharge Plan Discharge to: Home (DC 16)
--- NOTE | 2018-12-30 13:48 | CP.PCM.PN ---
Subjective - Date & Time of Evaluation Date of Evaluation: 12/30/18 Time of Evaluation: 13:48 - Subjective Subjective: Patient improving well will follow PT INR Objective - Vital Signs/Intake and Output Vital Signs (last 24 hours): Temp Pulse Resp BP Pulse Ox 97.6 F 85 22 113/57 L 93 L 12/30/18 08:21 12/30/18 09:14 12/30/18 08:21 12/30/18 08:37 12/30/18 09:14 - Medications Medications: Current Medications Albuterol Sulfate (Albuterol 0.083% Inhal Anastacia (2.5 Mg/3 Ml) Ud) 2.5 mg INH RQ4 PRN PRN Reason: Shortness of Breath Albuterol/Ipratropium (Duoneb 3 Mg/0.5 Mg (3 Ml) Ud) 3 ml INH RQID [facility] Last Admin: 12/30/18 11:05 Dose: Not Given Atorvastatin Calcium (Lipitor) 40 mg PO HS [facility] Last Admin: 12/29/18 21:51 Dose: 40 mg Famotidine (Pepcid) 20 mg PO BID [facility] Last Admin: 12/30/18 08:37 Dose: 20 mg Lactic Acid (Lac-Hydrin 12% Cream (140 G)) 0 ea TOP Q12 [facility] Last Admin: 12/30/18 08:38 Dose: 1 applic Lisinopril (Zestril) 2.5 mg PO DAILY [facility] Last Admin: 12/30/18 08:37 Dose: 2.5 mg Metoprolol Tartrate (Lopressor) 12.5 mg PO Q12 [facility] Last Admin: 12/30/18 08:37 Dose: 12.5 mg - Labs Labs: 12/29/18 05:30 12/29/18 05:30 PT 45.7 Seconds (9.8-13.1) H* 12/30/18 05:35 INR 4.0 12/30/18 05:35 - Constitutional Appears: Non-toxic - Head Exam Head Exam: ATRAUMATIC, NORMAL INSPECTION, NORMOCEPHALIC - Eye Exam Eye Exam: Normal appearance - ENT Exam ENT Exam: Normal Exam - Neck Exam Neck Exam: Full ROM, Normal Inspection - Respiratory Exam Respiratory Exam: Clear to Ausculation Bilateral - Cardiovascular Exam Cardiovascular Exam: REGULAR RHYTHM, +S1, +S2 - GI/Abdominal Exam GI & Abdominal Exam: Soft, Normal Bowel Sounds - Extremities Exam Extremities Exam: Full ROM - Neurological Exam Neurological Exam: Alert, Awake, CN II-XII Intact, Oriented x3 Assessment and Plan (1) DVT prophylaxis Status: Acute (2) Morbid obesity Status: Chronic (3) Myocardial ischemia Status: Resolved (4) NSTEMI (non-ST elevated myocardial infarction) Status: Resolved (5) Pneumonia and influenza Status: Resolved (6) Respiratory failure with hypoxia and hypercapnia Status: Resolved (7) Sepsis Status: Resolved (8) History of aortic valve replacement Status: Chronic (9) Morbid obesity Status: Chronic (10) COPD (chronic obstructive pulmonary disease) Status: Suspected (11) Debilitated patient Status: Acute
--- NOTE | 2018-12-30 18:39 | CP.PCM.PN ---
Subjective - Date & Time of Evaluation Date of Evaluation: 12/30/18 Time of Evaluation: 13:00 - Subjective Subjective: Pt seen and examined at bedside. Denies chest pain or SOB Objective - Vital Signs/Intake and Output Vital Signs (last 24 hours): Temp Pulse Resp BP Pulse Ox 97.6 F 85 22 113/57 L 93 L 12/30/18 08:21 12/30/18 09:14 12/30/18 08:21 12/30/18 08:37 12/30/18 09:14 - Medications Medications: Current Medications Albuterol Sulfate (Albuterol 0.083% Inhal Anastacia (2.5 Mg/3 Ml) Ud) 2.5 mg INH RQ4 PRN PRN Reason: Shortness of Breath Albuterol/Ipratropium (Duoneb 3 Mg/0.5 Mg (3 Ml) Ud) 3 ml INH RQID [facility] Last Admin: 12/30/18 15:38 Dose: Not Given Atorvastatin Calcium (Lipitor) 40 mg PO HS [facility] Last Admin: 12/29/18 21:51 Dose: 40 mg Famotidine (Pepcid) 20 mg PO BID [facility] Last Admin: 12/30/18 17:12 Dose: 20 mg Lactic Acid (Lac-Hydrin 12% Cream (140 G)) 0 ea TOP Q12 [facility] Last Admin: 12/30/18 08:38 Dose: 1 applic Lisinopril (Zestril) 2.5 mg PO DAILY [facility] Last Admin: 12/30/18 08:37 Dose: 2.5 mg Metoprolol Tartrate (Lopressor) 12.5 mg PO Q12 [facility] Last Admin: 12/30/18 08:37 Dose: 12.5 mg - Labs Labs: 12/29/18 05:30 12/29/18 05:30 PT 45.7 Seconds (9.8-13.1) H* 12/30/18 05:35 INR 4.0 12/30/18 05:35 - Constitutional Appears: No Acute Distress - Head Exam Head Exam: ATRAUMATIC, NORMOCEPHALIC - Eye Exam Eye Exam: EOMI - ENT Exam ENT Exam: Mucous Membranes Moist - Neck Exam Neck Exam: Full ROM - Respiratory Exam Respiratory Exam: Clear to Ausculation Bilateral, NORMAL BREATHING PATTERN. absent: Accessory Muscle Use - Cardiovascular Exam Cardiovascular Exam: RRR, +S1, +S2. absent: Diastolic murmur - GI/Abdominal Exam GI & Abdominal Exam: Soft, Normal Bowel Sounds. absent: Tenderness - Extremities Exam Extremities Exam: Full ROM. absent: Calf Tenderness - Neurological Exam Neurological Exam: Alert, Awake, Oriented x3 - Psychiatric Exam Psychiatric exam: Normal Affect, Normal Mood - Skin Skin Exam: Dry, Intact, Warm Assessment and Plan - Assessment and Plan (Free Text) Assessment: (1) NSTEMI (non-ST elevated myocardial infarction) Status: Suspected (2) COPD (chronic obstructive pulmonary disease) Status: Suspected (3) Respiratory failure with hypoxia and hypercapnia Status: Resolved (4) Sepsis Status: Resolved (5) CAP (community acquired pneumonia) Status: Resolved Plan: possible cath in the near future. Continue: Lipitor 40 Daily Lisinopril 2.5 Daily Toprol 12.5 Q12 INR 4.0, will continue to monitor Pt seen, examined, assessment and plan discussed with Dr Herman Wei PGY1, Internal Medicine Resident
[2018-12-30 20:14] VITALS: RESP 20
[2018-12-31] MEDS: Albuterol-Ipratrop 3 mg / 0.5 (3 ml) UD INH SCH ×4 (07:23→19:16)
[2018-12-31] MEDS: Ammonium Lactate 12% Cream (140 g) TOP SCH ×2 (08:30→21:32)
[2018-12-31 08:47] LABS: INR 3.7
[2018-12-31 08:49] LABS: PROTHROMBIN TIME 42.4 Seconds (9.8-13.1)
--- NOTE | 2018-12-31 12:43 | CP.PCM.PN ---
Subjective - Date & Time of Evaluation Date of Evaluation: 12/31/18 Time of Evaluation: 12:43 - Subjective Subjective: Improving well PT INR not in the therapeutic range of 2.5 to 3.5. Continue present rx. Objective - Vital Signs/Intake and Output Vital Signs (last 24 hours): Temp Pulse Resp BP Pulse Ox 98.6 F 84 20 106/62 96 12/31/18 08:00 12/31/18 08:32 12/31/18 08:00 12/31/18 08:32 12/31/18 08:00 - Medications Medications: Current Medications Albuterol Sulfate (Albuterol 0.083% Inhal Anastacia (2.5 Mg/3 Ml) Ud) 2.5 mg INH RQ4 PRN PRN Reason: Shortness of Breath Albuterol/Ipratropium (Duoneb 3 Mg/0.5 Mg (3 Ml) Ud) 3 ml INH RQID [facility] Last Admin: 12/31/18 11:11 Dose: Not Given Atorvastatin Calcium (Lipitor) 40 mg PO HS [facility] Last Admin: 12/30/18 21:14 Dose: 40 mg Famotidine (Pepcid) 20 mg PO BID [facility] Last Admin: 12/31/18 08:30 Dose: 20 mg Lactic Acid (Lac-Hydrin 12% Cream (140 G)) 0 ea TOP Q12 [facility] Last Admin: 12/31/18 08:30 Dose: 1 applic Lisinopril (Zestril) 2.5 mg PO DAILY [facility] Last Admin: 12/31/18 08:32 Dose: 2.5 mg Metoprolol Tartrate (Lopressor) 12.5 mg PO Q12 [facility] Last Admin: 12/31/18 08:30 Dose: 12.5 mg Warfarin Sodium (Coumadin) 4 mg PO QD5 [facility]; Protocol Stop: 12/31/18 17:01 - Labs Labs: 12/29/18 05:30 12/29/18 05:30 PT 42.4 Seconds (9.8-13.1) H* 12/31/18 05:30 INR 3.7 12/31/18 05:30 - Constitutional Appears: Non-toxic - Head Exam Head Exam: ATRAUMATIC, NORMAL INSPECTION, NORMOCEPHALIC - Eye Exam Eye Exam: Normal appearance - ENT Exam ENT Exam: Mucous Membranes Moist - Neck Exam Neck Exam: Full ROM - Respiratory Exam Respiratory Exam: Clear to Ausculation Bilateral - Cardiovascular Exam Cardiovascular Exam: REGULAR RHYTHM, +S1, +S2 - GI/Abdominal Exam GI & Abdominal Exam: Soft, Normal Bowel Sounds - Extremities Exam Extremities Exam: Normal Inspection - Neurological Exam Neurological Exam: Alert, Awake, CN II-XII Intact, Oriented x3 - Psychiatric Exam Psychiatric exam: Normal Affect - Skin Skin Exam: Normal Color Assessment and Plan (1) DVT prophylaxis Status: Acute (2) Morbid obesity Status: Chronic (3) Myocardial ischemia Status: Resolved (4) NSTEMI (non-ST elevated myocardial infarction) Status: Resolved (5) Pneumonia and influenza Status: Resolved (6) Respiratory failure with hypoxia and hypercapnia Status: Resolved (7) Sepsis Status: Resolved (8) History of aortic valve replacement Status: Chronic (9) Morbid obesity Status: Chronic (10) COPD (chronic obstructive pulmonary disease) Status: Suspected (11) Debilitated patient Status: Acute
--- NOTE | 2018-12-31 15:57 | CT ---
Date of service: 12/31/2018 PROCEDURE: CT HEAD WITHOUT CONTRAST. HISTORY: rt middle finger numbness COMPARISON: Not available TECHNIQUE: Axial computed tomography images were obtained through the head/brain without intravenous contrast. Radiation dose: Total exam DLP = 1008.91 mGy-cm. This CT exam was performed using one or more of the following dose reduction techniques: Automated exposure control, adjustment of the mA and/or kV according to patient size, and/or use of iterative reconstruction technique. FINDINGS: HEMORRHAGE: No intracranial hemorrhage. BRAIN: No mass effect or edema. Minimal periventricular white matter lucency consistent with chronic microvascular ischemic change. No evidence of acute infarct. VENTRICLES: Unremarkable. No hydrocephalus. CALVARIUM: Unremarkable. PARANASAL SINUSES: Sphenoid polyp/retention cyst versus mucous secretion. MASTOID AIR CELLS: Unremarkable as visualized. No inflammatory changes. OTHER FINDINGS: None. IMPRESSION: No intracranial mass, hemorrhage or evidence of acute infarct. Minimal chronic white matter ischemic change. Appropriate for age. Sphenoid retention cyst versus mucous secretion.
--- NOTE | 2018-12-31 15:59 | US ---
Date of service: 12/31/2018 PROCEDURE: Right upper Extremity Venous Doppler HISTORY: r/o dvt COMPARISON: None available. TECHNIQUE: Right upper extremity deep veins, including the lower internal jugular, subclavian, axillary and brachial veins, were evaluated flow, compressibility and respiratory phasicity. FINDINGS: Normal flow, compressibility and respiratory phasicity was observed in the right upper extremity deep veins. IMPRESSION: No evidence of deep venous thrombosis.
--- NOTE | 2018-12-31 16:25 | US ---
Date of service: 12/31/2018 PROCEDURE: Limited right upper extremity arterial sonography HISTORY: r/o acute arterial occlusion COMPARISON: None TECHNIQUE: Standard protocol for this study/examination. FINDINGS: No evidence of occlusive disease or significant stenosis. Subclavian artery peak systolic velocity 46.1 centimeter/second. Axial peak systolic velocity 83.5 cm. Brachial peak systolic velocity 123.9. Radial peak systolic velocity 84 centimeter/second. Ulna are peak systolic velocity 90.4 cm. IMPRESSION: Negative study for vaso occlusive disease, stenosis or other acute/significant pathologic process
--- NOTE | 2018-12-31 19:35 | CP.PCM.PN ---
Subjective - Date & Time of Evaluation Date of Evaluation: 12/31/18 Time of Evaluation: 17:30 - Subjective Subjective: Pt seen and examined this morning. Pt denies chest pain, SOB Objective - Vital Signs/Intake and Output Vital Signs (last 24 hours): Temp Pulse Resp BP Pulse Ox 98.6 F 84 20 106/62 96 12/31/18 08:00 12/31/18 08:32 12/31/18 08:00 12/31/18 08:32 12/31/18 08:00 - Medications Medications: Current Medications Albuterol Sulfate (Albuterol 0.083% Inhal Anastacia (2.5 Mg/3 Ml) Ud) 2.5 mg INH RQ4 PRN PRN Reason: Shortness of Breath Albuterol/Ipratropium (Duoneb 3 Mg/0.5 Mg (3 Ml) Ud) 3 ml INH RQID [facility] Last Admin: 12/31/18 19:16 Dose: 3 ml Atorvastatin Calcium (Lipitor) 40 mg PO HS [facility] Last Admin: 12/30/18 21:14 Dose: 40 mg Famotidine (Pepcid) 20 mg PO BID [facility] Last Admin: 12/31/18 17:12 Dose: 20 mg Lactic Acid (Lac-Hydrin 12% Cream (140 G)) 0 ea TOP Q12 [facility] Last Admin: 12/31/18 08:30 Dose: 1 applic Lisinopril (Zestril) 2.5 mg PO DAILY [facility] Last Admin: 12/31/18 08:32 Dose: 2.5 mg Metoprolol Tartrate (Lopressor) 12.5 mg PO Q12 [facility] Last Admin: 12/31/18 08:30 Dose: 12.5 mg - Labs Labs: 12/29/18 05:30 12/29/18 05:30 PT 42.4 Seconds (9.8-13.1) H* 12/31/18 05:30 INR 3.7 12/31/18 05:30 - Constitutional Appears: No Acute Distress - Head Exam Head Exam: ATRAUMATIC, NORMOCEPHALIC - Eye Exam Eye Exam: EOMI - ENT Exam ENT Exam: Mucous Membranes Moist - Neck Exam Neck Exam: Full ROM - Respiratory Exam Respiratory Exam: Clear to Ausculation Bilateral, NORMAL BREATHING PATTERN. absent: Accessory Muscle Use - Cardiovascular Exam Cardiovascular Exam: RRR, +S1, +S2. absent: Diastolic murmur, Murmur - GI/Abdominal Exam GI & Abdominal Exam: Soft, Normal Bowel Sounds - Extremities Exam Extremities Exam: Full ROM. absent: Pedal Edema - Neurological Exam Neurological Exam: Alert, Awake, Oriented x3 - Psychiatric Exam Psychiatric exam: Normal Affect, Normal Mood - Skin Skin Exam: Dry, Intact, Warm Assessment and Plan - Assessment and Plan (Free Text) Assessment: (1) NSTEMI (non-ST elevated myocardial infarction) Status: Suspected (2) COPD (chronic obstructive pulmonary disease) Status: Suspected (3) Respiratory failure with hypoxia and hypercapnia Status: Resolved (4) Sepsis Status: Resolved (5) CAP (community acquired pneumonia) Status: Resolved Plan: possible cath in the near future. Continue: Lipitor 40 Daily Lisinopril 2.5 Daily Toprol 12.5 Q12 INR 3.7, will continue to monitor Pt seen, examined, assessment and plan discussed with Dr Herman Wei PGY1, Internal Medicine Resident
[2019-01-01 06:49] LABS: INR 2.7
[2019-01-01] MEDS: Albuterol-Ipratrop 3 mg / 0.5 (3 ml) UD INH SCH ×5 (08:12→19:10)
[2019-01-01] MEDS: Ammonium Lactate 12% Cream (140 g) TOP SCH ×2 (08:34→21:15)
--- NOTE | 2019-01-01 13:30 | CP.PCM.CON ---
History of Present Illness - History of Present Illness History of Present Illness: Neurology Consultation Note: Consult requested by Dr. Oliveira Mrs. Solis is a 58-year-old woman with a past medical history of morbid obesity, HTN, HLD, who was admitted with Influenza and developed an NSTEMI, GI bleed, in the ICU with respiratory failure and is now in acute rehab. While she was in the acute phase of her illness, she had a PICC line placed on the right side and had noted for the past week that her right 3 medial fingers are numb, but she did not mention it to anyone since she assumed it was from the PICC. Yesterday, she mentioned that her right hand feels numb compared with the left starting with the middle finger to the thumb. CT scan of the head was done and did not show any acute findings. Review of Systems - Constitutional Constitutional: As Per HPI - EENT Eyes: absent: As Per HPI, Blind Spots, Blurred Vision, Change in Vision, Decreased Night Vision, Diplopia, Discharge, Dry Eye, Exophthalmos, Floaters, Irritation, Itchy Eyes, Loss of Peripheral Vision, Pain, Photophobia, Requires Corrective Lenses, Sees Flashes, Spots in Vision, Tunnel Vision, Other Visual Disturbances, Loss of Vision, Other Ears: absent: As Per HPI, Decreased Hearing, Ear Discharge, Ear Pain, Tinnitus, Abnormal Hearing, Disequilibrium, Dizziness, Other Nose/Mouth/Throat: absent: As Per HPI, Epistaxis, Nasal Congestion, Nasal Discharge, Nasal Obstruction, Nasal Trauma, Nose Pain, Post Nasal Drip, Sinus Pain, Sinus Pressure, Bleeding Gums, Change in Voice, Dental Pain, Dry Mouth, Dysphagia, Halitosis, Hoarsness, Lip Swelling, Mouth Lesions, Mouth Pain, Odynophagia, Sore Throat, Throat Swelling, Tongue Swelling, Facial Pain, Neck Pain, Neck Mass, Other - Cardiovascular Cardiovascular: absent: As Per HPI, Acrocyanosis, Chest Pain, Chest Pain at Rest, Chest Pain with Activity, Claudication, Diaphoresis, Dyspnea, Dyspnea on Exertion, Edema, Irregular Heart Rhythm, Pain Radiating to Arm/Neck/Jaw, Leg Edema, Leg Ulcers, Lightheadedness, Orthopnea, Palpitations, Paroxysmal Nocturnal Dyspnea, Pedal Edema, Radiating Pain, Rapid Heart Rate, Slow Heart Rate, Syncope, Other - Respiratory Respiratory: absent: As Per HPI, Cough, Dyspnea, Hemoptysis, Dyspnea on Exertion, Wheezing, Snoring, Stridor, Pain on Inspiration, Chest Congestion, Excessive Mucous Production, Change in Mucous Color, Pain with Coughing, Other - Gastrointestinal Gastrointestinal: absent: As Per HPI, Abdominal Pain, Belching, Bloating, Change in Bowel Habits, Change in Stool Character, Coffee Ground Emesis, Constipation, Cramping, Diarrhea, Dyspepsia, Dysphagia, Early Satiety, Excessive Flatus, Fecal Incontinence, Heartburn, Hematemesis, Hematochezia, Loose Stools, Melena, Nausea, Odynophagia, Temesmus, Vomiting, Other - Musculoskeletal Musculoskeletal: absent: As Per HPI, Abnormal Gait, Arthralgias, Atrophy, Back Pain, Deformity, Joint Swelling, Limited Range of Motion, Loss of Height, Muscle Cramps, Muscle Weakness, Myalgias, Neck Pain, Numbness, Radiating Pain into Limb, Stiffness, Tingling, Other - Integumentary Integumentary: absent: As Per HPI, Acne, Alopecia, Bleeding Lesions, Change in Hair, Change in Nails, Change in Pigmentation, Changing Lesions, Dry Skin, Erythema, Furuncle, Hirsutism, Lesions, New Lesions, Non-Healing Lesions, Photosensitivity, Pruritus, Rash, Skin Pain, Skin Ulcer, Sores, Striae, Swelling, Unusual Bruising, Wounds, Jaundice, Other - Neurological Neurological: As Per HPI - Psychiatric Psychiatric: absent: As Per HPI, Abnormal Sleep Pattern, Anhedonia, Anxiety, Auditory Hallucinations, Behavioral Changes, Change in Appetite, Change in Libido, Confusion, Depression, Difficulty Concentrating, Hallucinations, Homicidal Ideation, Hopelessness, Irritability, Memory Loss, Mood Swings, Panic Attacks, Paranoia, Suicidal Ideation, Visual Hallucinations, Tactile Hallucin ations, Other - Endocrine Endocrine: absent: As Per HPI, Change in Body Appearance, Change in Libido, Cold Intolorance, Deepening of Voice, Excessive Sweating, Fatigue, Flushing, Heat Intolorance, Increase in Ring/Shoe/Hat Size, Palpitations, Polydipsia, Polyph agia, Polyuria, Other - Hematologic/Lymphatic Hematologic: absent: As Per HPI, Easy Bleeding, Easy Bruising, Lymphadenopathy, Other Past Patient History - Past Medical History & Family History Past Medical History?: Yes - Past Social History Smoking Status: Heavy Smoker > 10 Cigarettes Daily Chewing Tobacco Use: No Cigar Use: No Alcohol: Social Drugs: Denies Home Situation {Lives}: With Family - CARDIAC Hx Cardiac Disorders: Yes Hx Congestive Heart Failure: Yes Hx Heart Attack: Yes Hx Hypertension: Yes Other/Comment: AVR. Valvular Heart Disease;. Myocardial Ischemia. NSTEMI - PULMONARY Hx Chronic Obstructive Pulmonary Disease (COPD): Yes Hx Pneumonia: Yes (Influenza with bronchopneumonia) Other/Comment: Influenza A;. Acute Respiratory Failure - NEUROLOGICAL Hx Neurological Disorder: No - HEENT Hx HEENT Problems: Yes Other/Comment: uses eyeglasses-farsighted - RENAL Hx Chronic Kidney Disease: No Hx Dialysis: Yes (had hemodialysis when in ICU;no HD at present) Hx Renal Failure: Yes - ENDOCRINE/METABOLIC Hx Endocrine Disorders: Yes Other/Comment: Morbid Obesity - HEMATOLOGICAL/ONCOLOGICAL Hx Anemia: Yes Hx Human Immunodeficiency Virus (HIV): No Other/Comment: Coagulopathy;. leucocytosis;. sepsis - INTEGUMENTARY Hx Dermatological Problems: No - MUSCULOSKELETAL/RHEUMATOLOGICAL Hx Falls: Yes - GASTROINTESTINAL Hx Gastrointestinal Disorders: Yes Other/Comment: gastric bypass-gastric band. >morbid obesity;. GI bleed - GENITOURINARY/GYNECOLOGICAL Hx Genitourinary Disorders: No - PSYCHIATRIC Hx Psychophysiologic Disorder: No Hx Substance Use: No - SURGICAL HISTORY Hx Surgeries: Yes Hx Gastric Bypass Surgery: Yes Hx Valve Replacement: Yes (aortic) - ANESTHESIA Hx Anesthesia: Yes Hx Anesthesia Reactions: No Hx Malignant Hyperthermia: No Meds Allergies/Adverse Reactions: Allergies Allergy/AdvReac Type Severity Reaction Status Date / Time No Known Allergies Allergy Verified 11/25/18 20:03 - Medications Medications: Current Medications Albuterol Sulfate (Albuterol 0.083% Inhal Anastacia (2.5 Mg/3 Ml) Ud) 2.5 mg INH RQ4 PRN PRN Reason: Shortness of Breath Albuterol/Ipratropium (Duoneb 3 Mg/0.5 Mg (3 Ml) Ud) 3 ml INH RQID [facility] Last Admin: 01/01/19 11:44 Dose: 3 ml Atorvastatin Calcium (Lipitor) 40 mg PO HS [facility] Last Admin: 12/31/18 21:32 Dose: 40 mg Famotidine (Pepcid) 20 mg PO BID [facility] Last Admin: 01/01/19 08:35 Dose: 20 mg Lactic Acid (Lac-Hydrin 12% Cream (140 G)) 0 ea TOP Q12 [facility] Last Admin: 01/01/19 08:34 Dose: 1 applic Lisinopril (Zestril) 2.5 mg PO DAILY [facility] Last Admin: 01/01/19 08:35 Dose: 2.5 mg Metoprolol Tartrate (Lopressor) 12.5 mg PO Q12 [facility] Last Admin: 01/01/19 08:34 Dose: 12.5 mg Warfarin Sodium (Coumadin) 5 mg PO ONCE ONE; Protocol Stop: 01/01/19 17:01 Physical Exam - Constitutional Appears: Well - Head Exam Head Exam: ATRAUMATIC, NORMAL INSPECTION, NORMOCEPHALIC - Eye Exam Eye Exam: EOMI, Normal appearance, PERRL Pupil Exam: NORMAL ACCOMODATION, PERRL - ENT Exam ENT Exam: Mucous Membranes Moist, Normal Exam - Neck Exam Neck exam: Positive for: Normal Inspection - Respiratory Exam Respiratory Exam: Clear to Auscultation Bilateral, NORMAL BREATHING PATTERN - Cardiovascular Exam Cardiovascular Exam: REGULAR RHYTHM, +S1, +S2 - GI/Abdominal Exam GI & Abdominal Exam: Normal Bowel Sounds, Soft. absent: Tenderness - Extremities Exam Extremities exam: Positive for: normal inspection - Back Exam Back exam: NORMAL INSPECTION - Neurological Exam Neurological exam: Alert, CN II-XII Intact, Normal Gait, Oriented x3, Reflexes Normal Additional comments: Right hand numbness/weakness in the distribution of the median nerve. - Psychiatric Exam Psychiatric exam: Normal Affect, Normal Mood - Skin Skin Exam: Dry, Intact, Normal Color, Warm Results - Vital Signs Recent Vital Signs: Last Vital Signs Temp 97.9 F 01/01/19 08:11 Pulse 88 01/01/19 10:29 Resp 20 01/01/19 08:11 BP 110/80 01/01/19 08:35 Pulse Ox 94 L 01/01/19 10:29 - Labs Result Diagrams: 12/29/18 05:30 12/29/18 05:30 Labs: Laboratory Results - last 24 hr 01/01/19 05:45 PT 31.0 H D INR 2.7 Assessment & Plan (1) Median neuropathy Assessment and Plan: Would recommend NCS/EMG to be done as an outpatient. This does not appear to be of central origin. No pronator drift on exam, CT scan does not show any concern for infarct despite the fact that the symptoms have been present for over a week (should be present on CT head for now). The patient is unlikely to be able to obtain MRI due to body habitus. Continue current PT/OT care plan. A wrist splint should be considered at least for night-time use. Thank you for this consultation. Status: Acute
--- NOTE | 2019-01-01 14:09 | CP.PCM.PN ---
Subjective - Date & Time of Evaluation Date of Evaluation: 01/01/19 Time of Evaluation: 12:15 - Subjective Subjective: patinet is resting no acute complaints at present Objective - Vital Signs/Intake and Output Vital Signs (last 24 hours): Temp Pulse Resp BP Pulse Ox 97.9 F 88 20 110/80 94 L 01/01/19 08:11 01/01/19 10:29 01/01/19 08:11 01/01/19 08:35 01/01/19 10:29 - Medications Medications: Current Medications Albuterol Sulfate (Albuterol 0.083% Inhal Anastacia (2.5 Mg/3 Ml) Ud) 2.5 mg INH RQ4 PRN PRN Reason: Shortness of Breath Albuterol/Ipratropium (Duoneb 3 Mg/0.5 Mg (3 Ml) Ud) 3 ml INH RQID [facility] Last Admin: 01/01/19 11:44 Dose: 3 ml Atorvastatin Calcium (Lipitor) 40 mg PO HS [facility] Last Admin: 12/31/18 21:32 Dose: 40 mg Famotidine (Pepcid) 20 mg PO BID [facility] Last Admin: 01/01/19 08:35 Dose: 20 mg Lactic Acid (Lac-Hydrin 12% Cream (140 G)) 0 ea TOP Q12 [facility] Last Admin: 01/01/19 08:34 Dose: 1 applic Lisinopril (Zestril) 2.5 mg PO DAILY [facility] Last Admin: 01/01/19 08:35 Dose: 2.5 mg Metoprolol Tartrate (Lopressor) 12.5 mg PO Q12 [facility] Last Admin: 01/01/19 08:34 Dose: 12.5 mg Warfarin Sodium (Coumadin) 5 mg PO ONCE ONE; Protocol Stop: 01/01/19 17:01 - Labs Labs: 12/29/18 05:30 12/29/18 05:30 PT 31.0 Seconds (9.8-13.1) H D 01/01/19 05:45 INR 2.7 01/01/19 05:45 - Constitutional Appears: Well - Head Exam Head Exam: ATRAUMATIC, NORMAL INSPECTION, NORMOCEPHALIC - Eye Exam Eye Exam: EOMI, Normal appearance, PERRL Pupil Exam: NORMAL ACCOMODATION - ENT Exam ENT Exam: Mucous Membranes Moist, Normal Exam - Neck Exam Neck Exam: Full ROM, Normal Inspection - Respiratory Exam Respiratory Exam: Clear to Ausculation Bilateral, NORMAL BREATHING PATTERN - Cardiovascular Exam Cardiovascular Exam: REGULAR RHYTHM - GI/Abdominal Exam GI & Abdominal Exam: Soft, Normal Bowel Sounds - Rectal Exam Rectal Exam: NORMAL INSPECTION - Exam External exam: NORMAL EXTERNAL EXAM - Extremities Exam Extremities Exam: Full ROM, Normal Capillary Refill, Normal Inspection - Back Exam Back Exam: NORMAL INSPECTION - Neurological Exam Neurological Exam: Alert, Awake Neuro motor strength exam: Left Upper Extremity: 3, Right Upper Extremity: 3, Left Lower Extremity: 3, Right Lower Extremity: 3 - Psychiatric Exam Psychiatric exam: Normal Affect, Normal Mood - Skin Skin Exam: Dry, Intact, Normal Color Assessment and Plan (1) Debilitated patient Assessment & Plan: plan for physical, occupational therapy, rec therapy range of motion, transfers, gait training Status: Acute (2) Acute pulmonary edema Status: Acute (3) Anemia Status: Acute (4) CHF exacerbation Status: Acute (5) Coagulopathy Status: Acute (6) DVT prophylaxis Status: Acute
[2019-01-02] MEDS: Albuterol-Ipratrop 3 mg / 0.5 (3 ml) UD INH SCH (07:43)
[2019-01-02] MEDS: Ammonium Lactate 12% Cream (140 g) TOP SCH (08:08)
[2019-01-02 08:10] VITALS: PULSE 82
[2019-01-02 09:08] LABS: INR 2.5; PROTHROMBIN TIME 28.4 Seconds (9.8-13.1)
--- NOTE | 2019-01-02 10:41 | CP.PCM.DIS ---
Provider - Provider Date of Admission: 12/21/18 23:01 Attending physician: Willie Hunter MD Consults: 12/21/18 23:19 Cardiology Consult Routine Comment: Consulting Provider: Isaak Sutton Consulting Physician: Isaak Sutton Reason for Consult: avr chf sp mi 12/21/18 23:20 Infectious Disease Consult Routine Comment: Consulting Provider: Feliz Coppola Consulting Physician: Feliz Coppola Reason for Consult: f/u sepsis 12/21/18 23:21 Pulmonology Consult Routine Comment: Consulting Provider: Froylan Adamson Consulting Physician: Froylan Adamson Reason for Consult: copd s/p resp.fail. 12/21/18 23:24 Physiatry Consult Routine Comment: Consulting Provider: Trace Carrillo Consulting Physician: Trace Carrillo Reason for Consult: debility s/p mi s/p respir. fail. 12/22/18 08:30 Case Management Referral Routine Comment: Physician Instructions: Reason For Exam: for discharge planning Reason for Referral: Discharge Planning 12/23/18 14:25 Podiatry Consult Routine Comment: Consulting Provider: Kendall Beavers Consulting Physician: Kendall Beavers Reason for Consult: cracked callous, toenails 12/31/18 13:03 Neurology Consult Routine Comment: Consulting Provider: Jadiel Moore Consulting Physician: Jadiel Moore Reason for Consult: rt middle finger numbness Time Spent in preparation of Discharge (in minutes): 30 Diagnosis - Discharge Diagnosis (1) NSTEMI (non-ST elevated myocardial infarction) Status: Suspected Priority: High Hospital Course - Lab Results Lab Results: Most Recent Lab Values WBC 6.6 K/uL (4.8-10.8) 12/29/18 05:30 RBC 2.87 Mil/uL (3.80-5.20) L 12/29/18 05:30 Hgb 9.3 g/dL (12.0-16.0) L 12/29/18 05:30 Hct 27.8 % (34.0-47.0) L 12/29/18 05:30 MCV 96.6 fl (81.0-99.0) 12/29/18 05:30 MCH 32.4 pg (27.0-31.0) H 12/29/18 05:30 MCHC 33.5 g/dL (33.0-37.0) 12/29/18 05:30 RDW 18.0 % (11.5-14.5) H 12/29/18 05:30 Plt Count 239 K/uL (130-400) 12/29/18 05:30 MPV 7.5 fl (7.2-11.7) 12/29/18 05:30 Neut % (Auto) 61.5 % (50.0-75.0) 12/29/18 05:30 Lymph % (Auto) 22.4 % (20.0-40.0) 12/29/18 05:30 [place] % (Auto) 7.9 % (0.0-10.0) 12/29/18 05:30 Eos % (Auto) 7.6 % (0.0-4.0) H 12/29/18 05:30 Baso % (Auto) 0.6 % (0.0-2.0) 12/29/18 05:30 Neut # (Auto) 4.1 K/uL (1.8-7.0) 12/29/18 05:30 Lymph # (Auto) 1.5 K/uL (1.0-4.3) 12/29/18 05:30 [place] # (Auto) 0.5 K/uL (0.0-0.8) 12/29/18 05:30 Eos # (Auto) 0.5 K/uL (0.0-0.7) 12/29/18 05:30 Baso # (Auto) 0.0 K/uL (0.0-0.2) 12/29/18 05:30 PT 28.4 Seconds (9.8-13.1) H 01/02/19 07:30 INR 2.5 01/02/19 07:30 Sodium 140 mmol/l (132-148) 12/29/18 05:30 Potassium 4.8 MMOL/L (3.6-5.0) 12/29/18 05:30 Chloride 106 mmol/L (98-107) 12/29/18 05:30 Carbon Dioxide 23 mmol/L (22-30) 12/29/18 05:30 Anion Gap 16 (10-20) 12/29/18 05:30 BUN 29 mg/dl (7-17) H 12/29/18 05:30 Creatinine 1.4 mg/dl (0.7-1.2) H 12/29/18 05:30 Est GFR ( Amer) 47 12/29/18 05:30 Est GFR (Non-Af Amer) 38 12/29/18 05:30 Random Glucose 91 mg/dL (65-105) 12/29/18 05:30 Calcium 9.2 mg/dL (8.4-10.2) 12/29/18 05:30 - Hospital Course Hospital Course: 58-year-old woman with a past medical history of morbid obesity, HTN, HLD, who was admitted with Influenza and developed an NSTEMI, GI bleed, in the ICU with respiratory failure and is now in acute rehab. While she was in the acute phase of her illness, she had a PICC line placed on the right side and had noted for the past week that her right 3 medial fingers are numb, but she did not mention it to anyone since she assumed it was from the PICC. Yesterday, she mentioned that her right hand feels numb compared with the left starting with the middle finger to the thumb. CT scan of the head was done and did not show any acute findings. Patient did well in rehab, can follow up neuro as outpatient as origin of numbness not central. HD stable NAD. follow up PCP in one week. Discharge Exam - Head Exam Additional comments: Vitals Reviewed GEN: WDWN, alert, cooperative HEENT: NCAT, PERRL, EOMI HEART: RRR, +S1S2, NO MRG LUNG: CTAB, NO WRR ABD: soft, NT, ND, No HSM, No masses EXT: normal pedal pulses NEURO: awake, alert SKIN: warm, dry PSYCH: normal mood, normal affect Discharge Plan - Discharge Medications Prescriptions: Atorvastatin [Lipitor] 40 mg PO HS #30 tab Famotidine [Pepcid] 20 mg PO BID #60 tab Lisinopril [Zestril] 2.5 mg PO DAILY #30 tab Metoprolol Tartrate [Lopressor] 12.5 mg PO Q12 #60 tab Warfarin [Coumadin] 6 mg PO 1800 #30 tab - Follow Up Plan Condition: GOOD Disposition: DISCHARGED TO HOME CARE Instructions: Famotidine, Lisinopril, Metoprolol, Warfarin, Obesity (DC), Obesity (GEN) Additional Instructions: FOLLOW UP WITH DR. HUNTER FOR INR CHECK IN 3 DAYS
[2019-01-02 10:44] VITALS: TEMP 98; O2SAT 98
[2019-01-02 11:09] VITALS: BP 110/80
== END 2019-01-02 11:30 | disposition home health service (06) | DRG 281 ==
PROVIDERS: ADMIT Internal Medicine; ATTEND Internal Medicine
PROC: F07M6FZ Therapeutic Exercise Treatment of Musculoskeletal System - Whole Body using Assistive, Adaptive, Supportive or Protective Equipment (ICD-10-PCS; principal; 2018-12-22)
PROC: F08Z4FZ Home Management Treatment using Assistive, Adaptive, Supportive or Protective Equipment (ICD-10-PCS; 2018-12-22)
PROC: F07Z9FZ Gait Training/Functional Ambulation Treatment using Assistive, Adaptive, Supportive or Protective Equipment (ICD-10-PCS; 2018-12-22)
PROC: 3E0F7GC Introduction of Other Therapeutic Substance into Respiratory Tract, Via Natural or Artificial Opening (ICD-10-PCS; 2018-12-22)
PROC: 0HBRXZZ Excision of Toe Nail, External Approach (ICD-10-PCS; 2018-12-24)
PROC: 0HBRXZZ Excision of Toe Nail, External Approach (ICD-10-PCS; 2018-12-24)
PROC: 0HBRXZZ Excision of Toe Nail, External Approach (ICD-10-PCS; 2018-12-24)
PROC: 0HBRXZZ Excision of Toe Nail, External Approach (ICD-10-PCS; 2018-12-24)
PROC: 0HBRXZZ Excision of Toe Nail, External Approach (ICD-10-PCS; 2018-12-24)
PROC: 0HBRXZZ Excision of Toe Nail, External Approach (ICD-10-PCS; 2018-12-24)
PROC: 0HBRXZZ Excision of Toe Nail, External Approach (ICD-10-PCS; 2018-12-24)
PROC: 0HBRXZZ Excision of Toe Nail, External Approach (ICD-10-PCS; 2018-12-24)
PROC: 0HBRXZZ Excision of Toe Nail, External Approach (ICD-10-PCS; 2018-12-24)
PROC: 0HBRXZZ Excision of Toe Nail, External Approach (ICD-10-PCS; 2018-12-24)
DX: I21.4 Non-ST elevation (NSTEMI) myocardial infarction (principal); D68.9 Coagulation defect, unspecified; Z68.43 Body mass index [BMI] 50.0-59.9, adult; N17.9 Acute kidney failure, unspecified; R53.1 Weakness; R53.81 Other malaise; I25.10 Atherosclerotic heart disease of native coronary artery without angina pectoris; I25.2 Old myocardial infarction; I35.0 Nonrheumatic aortic (valve) stenosis; I50.9 Heart failure, unspecified; I71.9 Aortic aneurysm of unspecified site, without rupture; I73.9 Peripheral vascular disease, unspecified; J44.9 Chronic obstructive pulmonary disease, unspecified; Z79.01 Long term (current) use of anticoagulants; Z87.01 Personal history of pneumonia (recurrent); Z95.1 Presence of aortocoronary bypass graft; Z95.2 Presence of prosthetic heart valve; Z95.5 Presence of coronary angioplasty implant and graft; Z98.84 Bariatric surgery status; Q66.89 Other specified congenital deformities of feet; R09.89 Other specified symptoms and signs involving the circulatory and respiratory systems; D64.9 Anemia, unspecified; E66.01 Morbid (severe) obesity due to excess calories; E78.5 Hyperlipidemia, unspecified; F17.210 Nicotine dependence, cigarettes, uncomplicated; G47.33 Obstructive sleep apnea (adult) (pediatric); I11.0 Hypertensive heart disease with heart failure; G56.11 Other lesions of median nerve, right upper limb